=== PATIENT | female | born 1950 | race Caucasian/White ===

== ENCOUNTER → 2017-02-01 | Outpatient (CLI) | payer OTHER ==
[~2017-02-01] MED LIST: APR25 PO; BUME2TAB3 PO; CALC500C3 PO; CALC667C4 PO; CIPR-255 PO; INSDGI SC; INSUINJ SC; LSN20 PO; LSN40 PO; METO-596 PO; METO50TA16 PO; METR500T PO; MULT-648 PO; NRV5 PO; NVLGI/PEN SQ; OXYC-57 PO; PSYL58.636 PO; VTMD1000 PO
--- NOTE | 2017-02-01 12:06 | DIAGNOSTIC IMAGING REPORT ---
Soft tissue ultrasound left knee LEFT EXTREMITY NONVASCULAR LIMITED CLINICAL HISTORY: CYST ON BACK OF LEFT KNEE pain. Edema. TECHNIQUE: Ultrasound COMPARISON STUDY: None FINDINGS: Minimal soft tissue edema at the site of clinically palpable tenderness. No abnormal mass or collection. No significant popliteal cyst. IMPRESSION: Minimal soft tissue edema at the site of clinically palpable tenderness. No well-defined abscess collection or cyst. Electronically signed by: Scottie Peter M.D. 02/01/2017 12:04 PM Dictated Date/Time: 02/01/2017 12:03 PM
== END | disposition home or self-care (01) ==
LOC: C.ULTRBC 11:31
PROVIDERS: ATTEND Internal Medicine Nephrology
DX: M25.562 Pain in left knee (principal)

== ENCOUNTER → 2017-05-10 | Outpatient (CLI) | payer OTHER ==
[~2017-05-10] MED LIST changes: -CIPR-255 PO; -LSN40 PO; -METO50TA16 PO; -METR500T PO; -NRV5 PO; -OXYC-57 PO
[2017-05-15 11:48] LABS: IGA SERUM 334 mg/dL (81-463); TIS TRANS IGA 1 U/mL (<4)
== END | disposition home or self-care (01) ==
LOC: C.LAB1850 11:52
PROVIDERS: ATTEND Physician Assistant
DX: R19.5 Other fecal abnormalities (principal)

== ENCOUNTER 2017-06-07 10:09 | Day surgery (SDC) | payer OTHER ==
[~2017-06-07] VITALS: Ht 157.5 cm; Wt 49.5 kg
--- NOTE | 2017-06-07 06:14 | History and Physical ---
History & Physical Date of Service Jun 07, 2017. History & Physical Chief Complaint: ESRD, malfunctioning access History of Present Illness The patient is a 65 year old female with multiple medical problems including chronic renal disease and von willebrand's disease, recently had a left arm fistula done over 1 year ago which is not functioning well at this time. Pt denies OLIVARES, fever, chills, chest pain, SOB, abd pain, N/V, rest pain, claudication, other complaints. Allergies Adhesives (Verified Allergy, Intermediate, RASH, 10/08/15) Amoxicillin (Verified Allergy, Intermediate, RASH, 10/08/15) Ampicillin (Verified Allergy, Intermediate, RASH, 10/08/15) Erythromycin (Verified Allergy, Intermediate, RASH, 10/08/15) Etodolac (Verified Allergy, Intermediate, RASH, 10/08/15) Penicillins (Verified Allergy, Intermediate, RASH, 10/08/15) Sulfa Antibiotics (Verified Allergy, Intermediate, RASH, 10/08/15) Aspirin (Verified Allergy, Mild, RASH, 10/08/15) Meds: See med list Surgical / Medical History Hx Cardiac Surgery: No Hx Abdominal Surgery: No Hx Cancer Surgery: No Hx Thoracic Surgery: No Hx Orthopedic: No Hx Urinary Tract Surgery: No HX Other Surgery: No Past Medical/Surgical History: Diabetes, Hypertension, Kidney Disease Family History No pertinent family history Social History Smoking Status: Never Smoker Hx Tobacco Use In Past Year?: No Hx Alcohol Use - Type & Amnt: No Hx Substance Use -Type & Amnt: No Review of Systems Constitutional: + malaise, No chills Skin: No change in color Eyes: No visual changes ENMT: No sore throat Respiratory: No DAVID, No cough, No hemoptysis, No short of breath Cardiovascular: No chest pain, No edema, No intermittent claudication, No palpitations, No syncope Gastrointestinal: + nausea, No abdominal pain, No vomiting Genitourinary - Female: No dysuria, No hematuria Neurologic: + weakness, No dizziness, No headache, No lethargy, No numbness, No seizures Physical Exam: Constitutional: General Apperance: well-nourished, well-developed Level of Distress: NAD, chronically ill Psychiatric: Mental Status: active & alert, normal mood, normal affect Orientation: oriented except where noted, to time, to place, to person Memory: recent memory normal, remote memory normal Head: normocephalic, atraumatic Eyes: EOM: EOMI ENMT: normal ENT inspection, hearing grossly normal Neck: supple, trachea midline Lungs: Respiratory effort: no dyspnea Auscultation: breath sounds normal, no wheezing, no rales/crackles, no rhonchi Cardiovascular: Apical Impulse: not displaced Heart Auscultation: RRR, no rubs, no gallops Peripheral Pulses: Pulses: full and equal, in all extremities except if noted Bruits: none appreciated Carotid Pulse: normal on the left, normal on the right Brachial Pulses: normal on the left, normal on the right Radial Pulse: normal on the left, normal on the right Femoral Pulse: normal on the left, normal on the right Posterior Tibialis Pulse: decreased on the left, decreased on the right Dorsalis Pedis Pulse: decreased on the left, decreased on the right Abdomen: Bowel Sounds: normal Inspection & Palpation: soft, non-distended, no tenderness, guarding & rebound Musculoskeletal: normal strength (5/5 throughout), normal tone Extremities: Upper Right: no cyanosis, no edema, no varicosities Upper Left: no cyanosis, no edema, no varicosities, decreased thrill Lower Right: no cyanosis, no edema, no varicosities Lower Left: no cyanosis, no edema, no varicosities Neurologic: Cranial Nerves: grossly intact Sensation: grossly intact ASSESSMENT and PLAN: Imp: ESRD Malfunctioning fistula Plan: Patient admitted for a fistulogram with possible intervention. I have discussed the risks options and benefits of the procedure with the patient. The patient understands the risks options and benefits and agrees to the procedure.
[~2017-06-07 10:09] MED LIST changes: -APR25 PO; -CALC500C3 PO; +CLINDAMYCIN 600 MG/54 ML D5W IV SCH; +D5W AND 1/4NSS 1,000 ML IV SCH; -INSDGI SC; -PSYL58.636 PO
[2017-06-07] MEDS ORDERED: CALC500C3 PO (10:53)
[2017-06-07] MEDS ORDERED: CALC667C4 PO (10:53)
[2017-06-07] MEDS ORDERED: PSYL58.636 PO (10:53)
[2017-06-07] MEDS ORDERED: INSDGI SC (10:53)
[2017-06-07] MEDS ORDERED: APR25 PO (10:53)
[2017-06-07 10:57] VITALS: BP 188/65; PULSE 63; TEMP 37.2; O2SAT 96; Ht 157.5 cm; Wt 49.5 kg
--- NOTE | 2017-06-07 11:28 | Procedure Note ---
Pre-Mod Sedation Assessment General Date of Moderate Sedation: Jun 07, 2017. Vital Signs: Vital Signs Past 12 Hours Date Time Temp Pulse Resp B/P (MAP) Pulse Ox O2 Delivery O2 Flow Rate FiO2 06/07/17 10:57 37.2 63 22 188/65 (106) 96 Room Air Pre-Sedation Airway Assessment Oral Cavity: WNL Smoking Status: Never Smoker Mallampati Classification: Class I ASA Classification: Class III Notes The planned sedation has been discussed with the patient and consent obtained. I have identified the patient, determined the appropriateness of sedation and have assessed the patient immediately prior to the procedure. All medicine(s) and interventions are by my order.
--- NOTE | 2017-06-07 11:28 | History & Physical Bridge Note ---
H&P Re-Evaluation Bridge Note: I have examined the patient, reviewed the History & Physical and in the interval since the performance of the History & Physical I have noted the following changes of clinical significance: No changes noted
[2017-06-07] MEDS ORDERED: FENTANYL CITRATE INJ 50 MCG/1 ML 2 ML VIAL ONE (11:34)
[2017-06-07] MEDS ORDERED: MIDAZOLAM HCL 1 MG/ML 2ML VIAL ONE (11:35)
[2017-06-07 11:42] VITALS: BP 188/65; PULSE 63; TEMP 37.2; O2SAT 96
[2017-06-07] MEDS ORDERED: LIDOCAINE HCL 1% 20 ML VIAL INJ ONE (12:03)
[2017-06-07] MEDS ORDERED: MIDAZOLAM HCL 1 MG/ML 2ML VIAL IV ONE (12:09)
[2017-06-07] MEDS ORDERED: FENTANYL CITRATE INJ 50 MCG/1 ML 2 ML VIAL IV ONE (12:09)
[2017-06-07] MEDS ORDERED: HydrALAZINE HCL 20 MG/ML VIAL ONE ×2 (12:17→12:55)
[2017-06-07] MEDS ORDERED: HydrALAZINE HCL 20 MG/ML VIAL IV. ONE ×2 (12:19→12:54)
[2017-06-07] MEDS ORDERED: OPTIRAY 300 IV ONE (12:53)
--- NOTE | 2017-06-07 13:00 | [facility] Post Operative Brief Note ---
Immediate Operative Summary Operative Date Jun 07, 2017. Pre-Operative Diagnosis Malfunctioning Fistula Post-Operative Diagnosis Same Procedure(s) Performed Fistulogram Percutaneous Transluminal Angioplasty and Stenting Venous Moderate Concious Sedation 1209 to 1259 Surgeon Felecia Truck Greaser Surgeon(s) Addi Gunter, Fellow Estimated Blood Loss 2 Findings good thrill Specimens None Anesthesia Local with sedation Complication(s) None Disposition
--- NOTE | 2017-06-07 13:01 | Procedure Note ---
Post-Moderate Sedation Plan General Date of Moderate Sedation Jun 07, 2017. Vital Signs: Vital Signs Past 12 Hours Date Time Temp Pulse Resp B/P (MAP) Pulse Ox O2 Delivery O2 Flow Rate FiO2 06/07/17 11:42 37.2 63 22 188/65 96 Room Air 06/07/17 10:57 37.2 63 22 188/65 (106) 96 Room Air Review - Discharge Plan Post Moderate Sedation Plan: On clinical assessment, the patient appears to have tolerated the conscious sedation without complications. Patient is recovering as anticipated. Patient will continue to be monitored by nursing and may be discharged when conscious sedation discharge criteria are met.
--- NOTE | 2017-06-07 13:02 | Discharge Instructions ---
Discharge Instructions Date of Service Jun 07, 2017. Visit Reason for Visit: Decreased Bruit & Access Discharge Discharge Diagnosis / Problem: Malfunctioning fistula Discharge Goals Goal(s): Therapeutic intervention Activity Recommendations Activity Limitations: resume your previous activity Anesthesia . Post Anesthesia Instructions: If you have had General Anesthesia or IV Sedation: * Do not drive today. * Resume driving when surgeon permits. * Do not make important decisions or sign legal documents today. * Call surgeon for: 1. Temperature elevations greater than 101 degrees F. 2. Uncontrollable pain. 3. Excessive bleeding. 4. Persistent nausea and vomiting. 5. Medication intolerance (nausea, vomiting or rash). * For nausea and vomiting use only clear liquids such as: tea, soda, bouillon until nausea subsides, then gradually increase diet as tolerated. * If you have any concerns or questions, call your surgeon's office. If physician is unavailable and it is an emergency, call 911 or go to the nearest emergency room. . Instructions / Follow-Up Instructions / Follow-Up Call [phone] with any questions or concerns. SPECIAL CARE INSTRUCTIONS: Medications: * Continue to take your medications as directed. If you have been given a prescription for Plavix, please fill it immediately and take as directed. Incision Care: * Your puncture site may have some bruising and minor swelling for about one week. * You will have a small dressing covering your puncture site. You may remove the dressing after 24 hours and shower. You may let the warm soapy water run over it, but be sure to dry the puncture site well and keep it dry. * DO NOT IMMERSE THE INCISION IN A TUB/POOL/etc. UNTIL HEALED. * Puncture sites should be kept covered with a band-aid until it begins to heal. Restrictions: * Depending on whether you leg or arm was punctured to access the arteries, you will be required to lay flat, hold your arm still, or both, for about 4 hours after the procedure to prevent bleeding. * Limit your activity for the first 48 hours. You may walk and go up and down steps. Avoid excessive bending or movement at the puncture site. Possible Complications: * Excessive Swelling - after blood flow is improved you may notice increased swelling in the lower legs. This is a normal response. This usually depends on the amount of blockages in the leg, how long they have been there prior to your procedure and how much blood flow was restored. Elevating your legs will help to improve this. Please notify our office ([phone] ) if the swelling does not go away after lying in bed overnight. * Infection/Drainage/Bleeding - Drainage or bleeding from the puncture site should be minimal. If you have excessive bleeding or drainage, call our office ([phone]) right away. * Pain - You may experience some mild pain or soreness at your puncture site. If your pain does not improve, please contact our office ([phone]). Call your doctor and seek emergent treatment if you develop: * Temperature above 101 degrees * Any fever or chills * Any redness or purulent drainage from the puncture site * Any new dusky/blue colored toes or feet with coolness or sharp or aching pain. SKIN IRRITATION: * You may experience some redness and/or swelling in the area where radiation was administered. If any skin irritation occurs, please contact your family physician. FOLLOW UP VISIT: Keep any scheduled doctor appointments. Diet Recommendations Recommended Home Diet: no limitations Procedures Procedures Performed: Fistulogram Percutaneous Transluminal Angioplasty and Stenting Venous Moderate Concious Sedation 1209 to 1259 Pending Studies Studies pending at discharge: no Medical Emergencies . Who to Call and When: Medical Emergencies: If at any time you feel your situation is an emergency, please call 911 immediately. . Non-Emergent Contact Non-Emergency issues call your: Surgeon . . "Provider Documentation" section prepared by Davonte Izquierdo. .
[2017-06-07 13:05] VITALS: BP 147/73; PULSE 63; TEMP 36.4; O2SAT 97
--- NOTE | 2017-06-07 13:16 | [facility] Operative Report ---
Operative Report Operative Date Jun 07, 2017. Pre-Operative Diagnosis Malfunctioning Fistula Post-Operative Diagnosis Same Procedure(s) Performed Fistulogram Percutaneous Transluminal Angioplasty and Stenting Venous (FLAIR stent 9x40 mm, absolute stent 10 x 40 mm) Moderate Concious Sedation 1209 to 1259 Surgeon Felecia Material Specialist Surgeon(s) Addi Gunter, Fellow Estimated Blood Loss 2 Findings Patient had significant pulsatility in the AV fistula prior to procedure. Patient had an area of stenosis between the two areas that have been used for access in the AV fistula. Patient also had some stenosis within the stents in the cephalic vein and a small area of stenosis just distal to the last stent placed at the junction of the subclavian and cephalic vein. Radiation dose 16 mGy Contrast dose 25 mL Fluoroscopy time 6.4 minutes. Specimens None Anesthesia Local with sedation Complication(s) None Disposition Recovery Room / PACU Indications The Q50 balloon was then loaded on the left side and the balloon was then inflated at the main neck of the device, then at the overlap area as well as the distal iliac limb. The balloon was then placed on the right side and dilation of the stent overlap as well as the iliac limb was completed. Description of Procedure Patient was brought to the operating room and placed on the operating table in the supine position the left upper extremity was extended on an arm board and prepped and draped in a sterile fashion. 1% lidocaine was injected under the skin and over the AV fistula and a micropuncture needle was used to access the AV fistula micropuncture wire was advanced and a confirmatory fluoroscopic image was Taken the micropuncture sheath was then advanced into the AV fistula and a fistulogram was obtained. This fistulogram showed an area of stenosis mid AV fistula in between the two different areas where the AV fistula has been access repeatedly. We moved centrally and followed the AV fistula. A fistulogram was performed showing in-stent stenosis in the cephalic vein which is the outflow of the AV fistula as well as an area stenosis right at the bifurcation and confluence of the subclavian vein and cephalic vein. Centrally there was no significant stenosis seen beyond the confluence of the subclavian and cephalic vein. An angled Glidewire was then advanced into the AV fistula and reached superior vena cava. The micropuncture sheath was then exchanged for a 7 Belgian sheath and a 9 x 40 mm [place]on balloon was advanced over the wire across the in-stent stenosis in the cephalic vein. The balloon was inflated and multiple times across the areas of stenosis. A follow-up fistulogram was completed showing residual stenosis. There was an area of residual stenosis at the confluence of the subclavian vein and cephalic vein. The 7 Belgian sheath was exchanged for a 9 Belgian sheath over the wire. A Flair 9 x 46 mm stent was advanced to the confluence of the subclavian and cephalic vein and Doran in place. Next a 10 x 40 mm absolute stent was advanced to the area of in-stent stenosis in the cephalic vein and deployed. A 10 x 20 mm [place]on balloon was then advanced over the wire right outside the distal end of the new FLAIR stent that was deployed and the balloon was inflated to FLAIR distal end of the stent. The balloon was then exchanged over the wire with a 9 x 40 [place]on balloon which was inflated across the new stent that was placed to treat the in- stent restenosis. A completion fistulogram was performed showing a good result. Attention was then turned back to the AV fistula and a 7 x 40mm balloon was exchanged over the wire. A fistulogram with the arm was completed showing the area stenosis. The balloon was positioned across the area of stenosis and inflated twice. Following the angioplasty a follow-up fistulogram was completed showing a good result with no residual stenosis. At this time the fistula was examined and a good thrill was palpated and the pulsatility was significantly improved. The sheath and wire were removed and gentle pressure was applied over the access site for hemostasis. The patient tolerated the procedure well and was taken back to the recovery room with no complications. Dr. Izquierdo was present for the entirety of the procedure. I, Dr. Izquierdo was present and scrubbed for the entire procedure. I attest to the content of the Intraoperative Record and any orders documented therein. Any exceptions are noted below.
[2017-06-07 13:21] VITALS: BP 138/69; PULSE 64; O2SAT 98
[2017-06-07 13:40] VITALS: BP 138/69; PULSE 64; TEMP 36.3; O2SAT 99
== END 2017-06-07 13:45 | disposition home or self-care (01) ==
LOC: C.ACU 10:09
PROVIDERS: ATTEND Surgery Vascular Surgery
DX: T82.898A Other specified complication of vascular prosthetic devices, implants and grafts, initial encounter (principal); Y83.2 Surgical operation with anastomosis, bypass or graft as the cause of abnormal reaction of the patient, or of later complication, without mention of misadventure at the time of the procedure; I12.0 Hypertensive chronic kidney disease with stage 5 chronic kidney disease or end stage renal disease; E11.22 Type 2 diabetes mellitus with diabetic chronic kidney disease; N18.6 End stage renal disease; D68.0 Von Willebrand disease; Z99.2 Dependence on renal dialysis; Z79.899 Other long term (current) drug therapy

== ENCOUNTER 2017-08-25 15:20 | Inpatient (IN) | payer OTHER ==
[~2017-08-25] VITALS: Ht 157.5 cm; Wt 50.2 kg
[~2017-08-25 15:20] MED LIST changes: +APR25 PO; +CALC500C3 PO; -CLINDAMYCIN 600 MG/54 ML D5W IV SCH; -D5W AND 1/4NSS 1,000 ML IV SCH; +INSDGI SC; -INSUINJ SC; +PSYL58.636 PO
[2017-08-25] MEDS ORDERED: FENTANYL CITRATE INJ 50 MCG/1 ML 2 ML VIAL IV STA (15:34)
--- NOTE | 2017-08-25 15:43 | EMERGENCY ROOM VISIT NOTE ---
History Report prepared by Molly: Ashley Henry Under the Supervision of: Dr. Pierre Hall M.D. First contact with patient: 15:25 Chief Complaint: ABDOMINAL PAIN Stated Complaint: RT LOWER ABDOMEN PAIN History of Present Illness The patient is a 67 year old female who presents to the Emergency Room with complaints of sharp right lower abdominal pain beginning four days ago. The patient states that her pain worsens when moves. She has decreased appetite, nausea, and chronic diarrhea. She denies any vomiting, chest pain, shortness of breath, headache or blood in her stool. The patient was referred to the ED by Dr. Lee. The patient has end stage renal disease on and is on dialysis three times a week (MWF). The patient still makes urine and denies any urinary symptoms. She has a history of diabetes and takes insulin. She states her sugar levels have been running around 160 which is baseline for her. The patient has arthritis but does not take any pain medications. The patient has no history of abdominal surgeries. Source of History: patient Onset: 4 days ago Position: abdomen (RLQ) Quality: sharp Modifying Factors (Worsening): movement Associated Symptoms: + nausea, + diarrhea, No headache, No chest pain, No SOB, No vomiting Review of Systems See HPI for pertinent positives & negatives. A total of 10 systems reviewed and were otherwise negative. Past Medical & Surgical Medical Problems: (1) acute renal failure, DKA, PNA (2) Diabetes (3) Liver failure (4) Renal failure (5) Von Willebrand disease Family History No pertinent family history Social History Smoking Status: Never Smoker Marital Status: Housing Status: lives with family Occupation Status: retired Current/Historical Medications Scheduled Bumetanide (Bumex), 2 MG PO DAILY Calcium Acetate (Phoslo 667 Mg), 3 CAPSULES PO WM Calcium Acetate (Phoslo 667 Mg), 1 CAP PO with snacks Calcium Carbonate (Tums), 2 TABS PO WM Cholecalciferol (Vitamin D3), 2,000 UNITS PO DAILY Hydralazine Hcl (Apresoline), 25 MG PO BID Insulin Glargine (Lantus), 7 UNITS SC QAM Lisinopril (Lisinopril), 20 MG PO DAILY Metoprolol Tartrate (Lopressor), 100 MG PO BID Multiple Vitamins W/ Minerals (Prorenal Vital), 1 TAB PO DAILY Psyllium (Metamucil Fiber), 1 TSP PO DAILY Scheduled PRN Insulin Aspart (Novolog Flexpen), 0-40 UNITS SQ MEALS AFTER 1700 PRN for 1 UNIT FOR EVERY SEVEN CARBS Allergies Coded Allergies: Adhesives (Verified Allergy, Intermediate, RASH, 08/25/17) Amoxicillin (Verified Allergy, Intermediate, RASH, 08/25/17) Ampicillin (Verified Allergy, Intermediate, RASH, 08/25/17) Erythromycin (Verified Allergy, Intermediate, RASH, 08/25/17) Etodolac (Verified Allergy, Intermediate, RASH, 08/25/17) Penicillins (Verified Allergy, Intermediate, RASH, 08/25/17) Sulfa Antibiotics (Verified Allergy, Intermediate, RASH, 08/25/17) Aspirin (Verified Allergy, Mild, RASH, 08/25/17) Sevelamer (Verified Allergy, Mild, rash, 08/25/17) Physical Exam Vital Signs Date Time Temp Pulse Resp B/P (MAP) Pulse Ox O2 Delivery O2 Flow Rate FiO2 08/25/17 17:19 59 18 168/67 98 Room Air 08/25/17 15:23 36.5 56 16 195/81 99 Room Air Physical Exam GENERAL: Patient is uncomfortable appearing and in moderate distress. HEENT: No acute trauma, normocephalic atraumatic, mucous membranes moist, no nasal congestion, no scleral icterus. NECK: No stridor, no adenopathy, no meningismus, trachea is midline. LUNGS: No dyspnea. Clear to auscultation and equal bilaterally. No wheeze, no rhonchi. HEART: Regular rate and rhythm. No murmurs, rubs, gallops appreciated. ABDOMEN: Moderate tenderness to right lower quadrant, bowel sounds positive, no masses appreciated, no peritonitis. BACK: No midline tenderness, no CVA tenderness EXTREMITIES: Normal motion all extremities, no cyanosis, no edema. Fistula in left arm. NEUROLOGIC: Alert and oriented, no acute motor or sensory deficits, no focal weakness, cranial nerves grossly intact. SKIN: No rash, no jaundice, no diaphoresis. Medical Decision & Procedures ER Provider Diagnostic Interpretation: Radiology results and stated below per my review and radiologist interpretation: CT SCAN OF THE ABDOMEN AND PELVIS WITHOUT IV CONTRAST FINDINGS: Lung bases: The heart is normal in size and without pericardial effusion. There is diminished attenuation of the cardiac blood pool as compared to the myocardium suggesting anemia. There are trace pleural effusions. Scarring versus atelectasis is seen at the left lung base. There is a tiny hiatal hernia. Liver: The unenhanced liver is normal in size, contour, and attenuation. There is no intrahepatic biliary ductal dilatation. Gallbladder: There are calcified gallstones. There is no CT evidence of acute cholecystitis. Spleen: Normal in size and attenuation. Pancreas: The unenhanced pancreas is markedly atrophic. The gland is densely calcified consistent with chronic pancreatitis. The pancreatic duct is not well visualized but likely dilated. Adrenal glands: There is mild nodular thickening of the adrenal glands. Kidneys: The unenhanced kidneys are atrophic and without hydronephrosis. The renal parenchyma appears hyperdense, possibly represent retained contrast. There is a 13 mm nonobstructing left or a calculus. There is at least one additional punctate nonobstructing left or a calculus. Tiny punctate right renal calculi are also identified. There is no evidence of contour deforming renal mass lesion. Abdominal vasculature: The abdominal aorta is normal in course and caliber noting moderate to advanced atherosclerotic calcification. Bowel: There is moderate fecal retention in the right colon. There is significant pericecal inflammation. The appendix is not identified. Peritoneum: There is no intraperitoneal free air or abdominal ascites. Lymphadenopathy: There are mildly enlarged retroperitoneal lymph nodes. An aortocaval node on image #169 measures 10 mm short axis. Enlarged mesenteric lymph nodes in the right lower quadrant measure up to 13 mm. Pelvic viscera: The the bladder wall appears mildly thickened. The uterus is normal as imaged. Skeletal structures: The skeletal structures are osteopenic. Mild lumbosacral spondylosis is observed. Advanced arthritic change is seen in the hips. There are healed right pubic ring fractures. No lytic or blastic lesions are seen. IMPRESSION: 1. Examination is suboptimal without oral and IV contrast. The examination is also compromised by motion artifact. 2. There is an inflammatory process in the right lower quadrant around the cecum. A normal appendix is not identified and acute appendicitis is suspected but not confirmed. The top differential consideration is a nonspecific colitis/cecitis. A repeat examination with oral and IV contrast could be considered for confirmation. 3. There is no evidence of abscess on this unenhanced examination. No intraperitoneal free air is seen. 4. There are mildly enlarged mesenteric and retroperitoneal lymph nodes. 5. Cholelithiasis. 6. The appearance of the pancreas is consistent with chronic pancreatitis. 7. Bilateral nonobstructing renal calculi. 8. The renal parenchyma appears hyperdense, likely related to contrast retention. 9. Moderate fecal retention is noted in the right colon. There is no bowel obstruction. 10. Trace pleural effusions. 11. Additional findings as above. Electronically signed by: Frankie Beckett M.D. Laboratory Results 08/25/17 15:40 Red Blood Count 3.76, Mean Corpuscular Volume 95.7, Mean Corpuscular Hemoglobin 30.9, Mean Corpuscular Hemoglobin Concent 32.2, Mean Platelet Volume 8.9, Neutrophils (%) (Auto) 84.2, Lymphocytes (%) (Auto) 9.9, Monocytes (%) (Auto) 5.4, Eosinophils (%) (Auto) 0.0, Basophils (%) (Auto) 0.2, Neutrophils # (Auto) 8.11, Lymphocytes # (Auto) 0.95, Monocytes # (Auto) 0.52, Eosinophils # (Auto) 0.00, Basophils # (Auto) 0.02 08/25/17 15:40 Test 08/25/17 15:40 White Blood Count 9.63 K/uL (4.8-10.8) Red Blood Count 3.76 M/uL (4.2-5.4) Hemoglobin 11.6 g/dL (12.0-16.0) Hematocrit 36.0 % (37-47) Mean Corpuscular Volume 95.7 fL (80-100) Mean Corpuscular Hemoglobin 30.9 pg (25-34) Mean Corpuscular Hemoglobin Concent 32.2 g/dl (32-36) Platelet Count 319 K/uL (130-400) Mean Platelet Volume 8.9 fL (7.4-10.4) Neutrophils (%) (Auto) 84.2 % Lymphocytes (%) (Auto) 9.9 % Monocytes (%) (Auto) 5.4 % Eosinophils (%) (Auto) 0.0 % Basophils (%) (Auto) 0.2 % Neutrophils # (Auto) 8.11 K/uL (1.4-6.5) Lymphocytes # (Auto) 0.95 K/uL (1.2-3.4) Monocytes # (Auto) 0.52 K/uL (0.11-0.59) Eosinophils # (Auto) 0.00 K/uL (0-0.5) Basophils # (Auto) 0.02 K/uL (0-0.2) RDW Standard Deviation 50.5 fL (36.4-46.3) RDW Coefficient of Variation 14.4 % (11.5-14.5) Immature Granulocyte % (Auto) 0.3 % Immature Granulocyte # (Auto) 0.03 K/uL (0.00-0.02) Anion Gap 11.0 mmol/L (3-11) Est Creatinine Clear Calc Drug Dose 6.9 ml/min Estimated GFR () 7.5 Estimated GFR (Non- 6.5 BUN/Creatinine Ratio 7.4 (10-20) Calcium Level 8.4 mg/dl (8.5-10.1) Total Bilirubin 0.4 mg/dl (0.2-1) Direct Bilirubin 0.1 mg/dl (0-0.2) Aspartate Amino Transf (AST/SGOT) 19 U/L (15-37) Alanine Aminotransferase (ALT/SGPT) 24 U/L (12-78) Alkaline Phosphatase 167 U/L (45-117) Total Protein 7.7 gm/dl (6.4-8.2) Albumin 3.0 gm/dl (3.4-5.0) Lipase 42 U/L (73-393) Laboratory results as reviewed by me. Medications Administered Medications (Trade) Dose Ordered Sig/Eduardo Route Start Time Stop Time Status Last Admin Dose Admin Fentanyl Citrate (Fentanyl Inj) 25 mcg NOW STAT IV 08/25/17 15:34 08/25/17 15:36 DC 08/25/17 15:42 25 MCG ED Course 1527: The patient was evaluated in room A10. A complete history and physical exam was performed. 1534: Fentanyl Inj 25 mcg IV. 1617: Discussed the patient's case with Dr. Ryan-Surgery. The patient will be evaluated for further by him. Medical Decision Differential: Appendicitis, , MSK, Diverticulitis, UTI, Renal Colic, Bowel Obstruction, Aortic Pathology, amongst other pathologies entertained. 67 yr old female with acute RLQ pain over last 4 days with decreased appetite, nausea, feverish, pain with ambulation and now in RLQ. Seen by PCP who sent here for evaluation of appendicitis. Given clearly TTP RLQ sent immediately for CT without con revealing inflammation throughout RLQ. No appendix could be visualized though. As she is clearly TTP and RLQ inflammation I discussed with Gen Surg who advise CT with PO con, and after talking with rads/nephro will add on IV con as well to get best imaging. Patient comfortable with this plan. Stable and without significant discomfort unless moving. PRN meds ordered and patient siged out to Dr Velázquez awaiting evaluation by Gen Surg and CT findings. Medication Reconcilliation Current Medication List: was personally reviewed by me Blood Pressure Screening Patient's blood pressure: Elevated blood pressure Blood pressure disposition: Referred to PCP (evaluated by hospitalist) Consults Time Called: 1656 Consulting Physician: Dr. Ryan-Surgery Returned Call: 1617 Discussed the patient's case. The patient will be evaluated for further by him. Impression Primary Impression: RLQ abdominal pain Additional Impression: Abnormal computed tomography angiography (CTA) of abdomen and pelvis Scribe Attestation The scribe's documentation has been prepared under my direction and personally reviewed by me in its entirety. I confirm that the note above accurately reflects all work, treatment, procedures, and medical decision making performed by me. Departure Information Dispostion Being Evaluated By Hospitalist Referrals Sixto Bella M.D. (PCP) Patient Instructions [facility] Problem Qualifiers
[2017-08-25 15:53] LABS: BASO % 0.2 %; BASO ABS # 0.02 K/uL (0-0.2); COMPLETE YES; IG% 0.3 %; LYMPH % 9.9 %; LYMPH ABS # 0.95 K/uL (1.2-3.4); MEAN CELL VOLUME 95.7 fL (80-100); MEAN CORPUSCULAR HEMOGLOBIN 30.9 pg (25-34); MEAN CORPUSCULAR HGB CONC 32.2 g/dl (32-36); MEAN PLATELET VOLUME 8.9 fL (7.4-10.4); MONO % 5.4 %; NEUT % 84.2 %; PLATELET COUNT 319 K/uL (130-400); RED BLOOD COUNT 3.76 M/uL (4.2-5.4); WHITE BLOOD COUNT 9.63 K/uL (4.8-10.8)
[2017-08-25 16:26] LABS: BUN/CREATININE RATIO 7.4 (10-20); CALCIUM 8.4 mg/dl (8.5-10.1); CREATININE 6.09 mg/dl (0.60-1.20); POTASSIUM 3.7 mmol/L (3.5-5.1)
--- NOTE | 2017-08-25 17:09 | DIAGNOSTIC IMAGING REPORT ---
CT SCAN OF THE ABDOMEN AND PELVIS WITHOUT IV CONTRAST CLINICAL HISTORY: Right lower quadrant abdominal pain. Strong clinical concern for acute appendicitis. COMPARISON STUDY: No priors. TECHNIQUE: CT scan of the abdomen and pelvis is performed from the lung bases to the proximal femora. Images are reviewed in the axial, sagittal, and coronal planes. IV contrast was not administered for this examination as per the front clinician due to poor renal function. Note that the examination is suboptimal without IV contrast. The examination is significantly degraded by motion artifact. A dose lowering technique was utilized adhering to the principles of ALARA. CT DOSE: 246.44 mGy.cm FINDINGS: Lung bases: The heart is normal in size and without pericardial effusion. There is diminished attenuation of the cardiac blood pool as compared to the myocardium suggesting anemia. There are trace pleural effusions. Scarring versus atelectasis is seen at the left lung base. There is a tiny hiatal hernia. Liver: The unenhanced liver is normal in size, contour, and attenuation. There is no intrahepatic biliary ductal dilatation. Gallbladder: There are calcified gallstones. There is no CT evidence of acute cholecystitis. Spleen: Normal in size and attenuation. Pancreas: The unenhanced pancreas is markedly atrophic. The gland is densely calcified consistent with chronic pancreatitis. The pancreatic duct is not well visualized but likely dilated. Adrenal glands: There is mild nodular thickening of the adrenal glands. Kidneys: The unenhanced kidneys are atrophic and without hydronephrosis. The renal parenchyma appears hyperdense, possibly represent retained contrast. There is a 13 mm nonobstructing left or a calculus. There is at least one additional punctate nonobstructing left or a calculus. Tiny punctate right renal calculi are also identified. There is no evidence of contour deforming renal mass lesion. Abdominal vasculature: The abdominal aorta is normal in course and caliber noting moderate to advanced atherosclerotic calcification. Bowel: There is moderate fecal retention in the right colon. There is significant pericecal inflammation. The appendix is not identified. Peritoneum: There is no intraperitoneal free air or abdominal ascites. Lymphadenopathy: There are mildly enlarged retroperitoneal lymph nodes. An aortocaval node on image #169 measures 10 mm short axis. Enlarged mesenteric lymph nodes in the right lower quadrant measure up to 13 mm. Pelvic viscera: The the bladder wall appears mildly thickened. The uterus is normal as imaged. Skeletal structures: The skeletal structures are osteopenic. Mild lumbosacral spondylosis is observed. Advanced arthritic change is seen in the hips. There are healed right pubic ring fractures. No lytic or blastic lesions are seen. IMPRESSION: 1. Examination is suboptimal without oral and IV contrast. The examination is also compromised by motion artifact. 2. There is an inflammatory process in the right lower quadrant around the cecum. A normal appendix is not identified and acute appendicitis is suspected but not confirmed. The top differential consideration is a nonspecific colitis/cecitis. A repeat examination with oral and IV contrast could be considered for confirmation. 3. There is no evidence of abscess on this unenhanced examination. No intraperitoneal free air is seen. 4. There are mildly enlarged mesenteric and retroperitoneal lymph nodes. 5. Cholelithiasis. 6. The appearance of the pancreas is consistent with chronic pancreatitis. 7. Bilateral nonobstructing renal calculi. 8. The renal parenchyma appears hyperdense, likely related to contrast retention. 9. Moderate fecal retention is noted in the right colon. There is no bowel obstruction. 10. Trace pleural effusions. 11. Additional findings as above. Electronically signed by: Frankie Beckett M.D. 08/25/2017 5:08 PM Dictated Date/Time: 08/25/2017 4:37 PM
[2017-08-25] MEDS ORDERED: ONDANSETRON INJ 2 MG/ML 2 ML VIAL IV PRN ×2 (17:45→22:45)
[2017-08-25] MEDS ORDERED: FENTANYL CITRATE INJ 50 MCG/1 ML 2 ML VIAL IV PRN (17:45)
[2017-08-25] MEDS ORDERED: OPTIRAY 320 IV PRN (20:30)
--- NOTE | 2017-08-25 20:41 | DIAGNOSTIC IMAGING REPORT ---
CT SCAN OF THE ABDOMEN AND PELVIS WITH IV CONTRAST CLINICAL HISTORY: Right lower quadrant abdominal pain. Strong clinical concern for acute appendicitis. COMPARISON STUDY: Unenhanced abdominal CT performed the same day 08/25/2017. TECHNIQUE: Following the IV administration of cc of Optiray 20, CT scan of the abdomen and pelvis is performed from the lung bases to the proximal femora. Images are reviewed in the axial, sagittal, and coronal planes. IV contrast was administered without complication. The examination is significantly degraded by motion artifact. A dose lowering technique was utilized adhering to the principles of ALARA. CT DOSE: 249.38 mGy.cm FINDINGS: Lung bases: The heart is normal in size and without pericardial effusion. There are trace pleural effusions. Scarring versus atelectasis is seen at the left lung base. There is a tiny hiatal hernia. Liver: The contrast-enhanced liver is normal in size, contour, and attenuation. There is mild central intrahepatic biliary ductal dilatation. The hepatic veins and portal veins are patent. Gallbladder: There are calcified gallstones. There is no CT evidence of acute cholecystitis. Spleen: Normal in size and attenuation. Pancreas: The pancreas is markedly atrophic. The gland is densely calcified consistent with chronic pancreatitis. The pancreatic duct is dilated measuring up to 9 mm. A large calculus is present within the main pancreatic duct seen on image #116. This measures up to 11 mm. Adrenal glands: There is mild nodular thickening of the adrenal glands. Kidneys: The contrast-enhanced kidneys are atrophic and without hydronephrosis. The kidneys enhance heterogeneously but symmetrically. There is a 13 mm nonobstructing left or a calculus. There is at least one additional punctate nonobstructing left or a calculus. Tiny punctate right renal calculi are also identified. Abdominal vasculature: The abdominal aorta is normal in course and caliber noting moderate to advanced atherosclerotic calcification. Bowel: There is moderate colonic fecal retention. No bowel obstruction is seen. There is a large inflammatory process identified around the base of the cecum. The appendix is not discretely visualized. There is a serpiginous/loculated appearing fluid collection the right lower quadrant seen on axial image #271 typical appearance for an abscess. This measures 3.3 x 3.7 x 1.4 cm. There is wall thickening within an adjacent loop of the distal ileum as well as the adjacent cecum, likely on a reactive basis. Peritoneum: There is no intraperitoneal free air or abdominal ascites. Lymphadenopathy: There are mildly enlarged retroperitoneal lymph nodes. An aortocaval node on image #187 measures up to 12 mm. Enlarged mesenteric lymph nodes in the right lower quadrant measure up to 15 mm. Pelvic viscera: The the bladder wall appears mildly thickened. The uterus is normal as imaged. No adnexal lesion is seen. Skeletal structures: The skeletal structures are osteopenic. Mild lumbosacral spondylosis is observed. Advanced arthritic change is seen in the hips. There are healed right pubic ring fractures. No lytic or blastic lesions are seen. IMPRESSION: 1. Again seen is a large inflammatory process centered around the base of the cecum. The appendix is not identified. There is phlegmonous change in this region with a serpiginous fluid collection typical in appearance for abscess. The appearance is highly concerning for perforated appendicitis. 2. No intraperitoneal free air is seen. 3. There is wall thickening involving the base of the cecum and an adjacent loop of the distal/terminal ileum, likely on a reactive basis. 4. There are mildly enlarged mesenteric and retroperitoneal lymph nodes. 5. Cholelithiasis. 6. The pancreas is atrophic with evidence of chronic pancreatitis. The pancreatic duct is dilated and there is a large obstructing stone present within the main pancreatic duct. Consider nonemergent GI follow-up. 7. Bilateral nonobstructing renal calculi. 8. Moderate fecal retention is noted in the right colon. There is no bowel obstruction. 9. Trace pleural effusions. 10. Mild bladder wall thickening suggested. Correlation with urinalysis will be required. 11. Additional findings as above. Electronically signed by: Frankie Beckett M.D. 08/25/2017 8:40 PM Dictated Date/Time: 08/25/2017 8:28 PM
[2017-08-25] MEDS ORDERED: METRONIDAZOLE 500MG / 100ML NSS IV STA (21:07)
[2017-08-25] MEDS ORDERED: CIPROFLOXACIN 400MG / 200ML D5W IV STA (21:07)
--- NOTE | 2017-08-25 21:36 | EMERGENCY ROOM VISIT NOTE ---
ED Visit Note First contact with patient: 18:27 This is a 67-year-old female who was signed out to me awaiting a CT scan with oral and IV contrast. The CT scan revealed a perforated appendicitis with a small abscess. I spoke with Dr. Ryan about the patient. We started IV Cipro and IV Flagyl. The patient will be seen by Dr. Ryan be admitted for further evaluation and care.
[2017-08-25] MEDS ORDERED: INSULIN ASPART 100 UNITS/ML 3 ML PEN SC ONE ×2 (22:39→22:58)
[2017-08-25] MEDS ORDERED: GLUCAGON FOR INJ 1 MG VIAL SQ PRN (22:45)
[2017-08-25] MEDS ORDERED: GLUCOSE 10 TABS/TUBE PO PRN (22:45)
[2017-08-25] MEDS ORDERED: CIPROFLOXACIN / D5W 400 MG in PREMIXED IN D5W 200 ML IV SCH (22:45)
[2017-08-25] MEDS ORDERED: GLUCOSE 40% GEL 15 GM TUBE PO PRN (22:45)
[2017-08-25] MEDS ORDERED: HydrALAZINE HCL 20 MG/ML VIAL IV. STA (23:19)
[2017-08-25] MEDS ORDERED: METOPROLOL TARTRATE 1 MG/ML VIAL IV STA (23:20)
[2017-08-25 23:43] VITALS: BP 174/71; PULSE 62; TEMP 36.4; O2SAT 97; BMI 19.9
[2017-08-26] VITALS (27 sets, daily range): BP systolic 101–166; BP diastolic 56–75; PULSE 52–67; TEMP 36.4–37.1; O2SAT 94–99; BMI 20.7
[2017-08-26 00:08] LABS: MAGNESIUM 2.4 mg/dl (1.8-2.4); THYROID STIMULATING HORMONE 3.13 uIu/ml (0.300-4.500)
--- NOTE | 2017-08-26 00:14 | INTERNAL MEDICINE CONSULTATION ---
DATE OF CONSULTATION: 08/25/2017 PRIMARY CARE PHYSICIAN: Dr. Bella. Patient seen on the request of Dr. Ryan for medical management. HISTORY OF PRESENT ILLNESS: Medical history is significant for hypertension, diabetes type 1, end-stage renal disease on dialysis, chronic anemia (baseline hemoglobin at 11), history of juvenile RA. Recent confinement September 2015 for DKA. Dialysis initiated at that time. One day history of achy right-sided abdominal pain, nausea. No vomiting, no fever, no chills. Intractable pain. Patient consulted Emergency Room. CT abdomen and pelvis with contrast showed perforated appendicitis with possible abscess, cholelithiasis, chronic pancreatitis moderate fecal retention and mild bladder wall thickening. Patient given Cipro and Flagyl in the ER. Currently, admitted under Surgery service. MEDICAL HISTORY: As above. Hemodialysis Saturday, Saturday and Saturday. SURGERIES: Vascular procedures. HOME MEDICATIONS: Include Bumex, PhosLo, Tums, cholecalciferol, hydralazine, NovoLog, Lantus, lisinopril, Lopressor and psyllium. ALLERGIES: ALLERGIC TO ADHESIVES, AMOXICILLIN, AMPICILLIN, ASPIRIN, ERYTHROMYCIN, ETODOLAC, SEVELAMER, PENICILLIN, SULFA. FAMILY HISTORY: Diabetes, bladder cancer. 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 REVIEW OF SYSTEMS: As per HPI, all other ROS negative. PHYSICAL EXAMINATION: VITAL SIGNS: Blood pressure was noted to be 165/89, pulse rate 60, RR 18 T 37 O2 98RA GENERAL: Pleasant, in no respiratory distress. SKIN: sallow, warm. HEENT: Pale palpebral conjunctivae. No ptosis. Dry mucosa. NECK: No JVD. Supple. No tenderness. CHEST: Clear to auscultation. No tenderness. CV : Regular rate and rhythm. Palpable LE pulses. ABDOMEN: Right lower quadrant tenderness, distention. EXTREMITIES: No LE edema, no tenderness. No gross deformities. NEUROLOGIC: Coherent. No gross focality. LABORATORY DATA: Hemoglobin 11.6, hematocrit 36, white count 9.6, platelets 319. Sodium 130, potassium 3.7, chloride 91, CO2 28, BUN 14, creatinine 0.6, glucose 146. CT abdomen as above. ASSESSMENT : 1. Ruptured appendicitis, no sepsis. 2. Hypertension, slightly elevated secondary to pain and missed nighttime meds. 3. DM1. Patient w/ hypoglycemic episodes at the ER secondary to poor p.o. intake today. 4. ESRD on HD 5. Chronic anemia secondary to ESRD. Hemoglobin at baseline 6. Juvenile rheumatoid arthritis as per records. RECOMMENDATIONS: Agree with El and Haseeb for intra-abdominal infection. Pharmacy consult for appropriate renal dosing of Ciprofloxacin. Telemetry admission to facilitate parenteral administration of home BB while patient is strictly n.p.o. IV hydralazine RTC while patient strictly n.p.o. Nephrology consult regarding dialysis management. Basal insulin adjusted for n.p.o. state, ISS BG goal 140-180. Check hemoglobin A1c. May need dextrose containing IV fluid, Accu-Cheks every 4 hours if with recurrent hypoglycemia. DVT prophylaxis, SCDs for now. Consider pharmacologic anticoagulation with heparin 5000 units subcutaneous every 8 hours once bleeding risk is deemed to be minimal and negligible. Thank you very much for consultation. Dr. Black will follow patient's progress. [facility]
[2017-08-26] MEDS ORDERED: HydrALAZINE HCL 20 MG/ML VIAL IV. STA (00:18)
[2017-08-26] MEDS ORDERED: SODIUM CHLORIDE 0.9% 1000ML 1,000 ML IV SCH (01:30)
[2017-08-26] MEDS: MoRPHine SULFATE 2 MG/ML CARP IV PRN ×3 (02:31→22:36)
[2017-08-26] MEDS ORDERED: INFLUENZA ADMINISTRATION CHARGE ONE (03:00)
[2017-08-26] MEDS ORDERED: INFLUENZA VACCINE HIGH DOSE 65+ 0.5 ML SYR IM. ONE (03:00)
[2017-08-26] MEDS: DEXTROSE 50% 50 ML SYR IV PRN ×2 (03:16→07:21)
[2017-08-26] MEDS ORDERED: DEXTROSE 50% 50 ML SYR IV STA (03:24)
[2017-08-26] MEDS ORDERED: HydrALAZINE HCL 20 MG/ML VIAL IV. ONE (03:57)
[2017-08-26 04:34] LABS: BASO % 0.1 %; BASO ABS # 0.01 K/uL (0-0.2); COMPLETE YES; HEMATOCRIT 31.4 % (37-47); IG% 0.3 %; LYMPH % 12.7 %; LYMPH ABS # 0.98 K/uL (1.2-3.4); MEAN CORPUSCULAR HEMOGLOBIN 31.4 pg (25-34); MEAN CORPUSCULAR HGB CONC 33.4 g/dl (32-36); MEAN PLATELET VOLUME 8.8 fL (7.4-10.4); MONO % 7.4 %; NEUT % 79.5 %; PLATELET COUNT 254 K/uL (130-400); RED BLOOD COUNT 3.34 M/uL (4.2-5.4); WHITE BLOOD COUNT 7.74 K/uL (4.8-10.8)
[2017-08-26 05:06] LABS: BUN/CREATININE RATIO 7.6 (10-20); CALCIUM 7.5 mg/dl (8.5-10.1); CREATININE 6.39 mg/dl (0.60-1.20); MAGNESIUM 2.2 mg/dl (1.8-2.4); POTASSIUM 3.7 mmol/L (3.5-5.1)
[2017-08-26] MEDS: METRONIDAZOLE / NSS 500 MG in PREMIXED NSS 100 ML IV SCH ×3 (05:17→21:49)
[2017-08-26] MEDS: METOPROLOL TARTRATE 1 MG/ML VIAL IV. SCH ×3 (05:18→18:15)
[2017-08-26] MEDS ORDERED: INSULIN ASPART 100 UNITS/ML 3 ML PEN SC SCH ×2 (07:00→08:00)
[2017-08-26] MEDS: INSULIN GLARGINE SOLOSTAR 100 UNITS/ML 3 ML PEN SC SCH (08:03)
[2017-08-26] MEDS: D5W AND NSS 1,000 ML IV SCH (08:21)
[2017-08-26 08:57] LABS: ESTIMATED AVERAGE GLUCOSE 166 mg/dl; HA1C FLAG Normal (Normal)
[2017-08-26] MEDS ORDERED: INSULIN GLARGINE SOLOSTAR 100 UNITS/ML 3 ML PEN SC SCH (09:00)
[2017-08-26] MEDS ORDERED: NURSING VERBAL MED ORDER ONE (09:00)
[2017-08-26] MEDS ORDERED: HydrALAZINE HCL 20 MG/ML VIAL IV. SCH ×3 (09:00→21:00)
[2017-08-26] MEDS ORDERED: CIPROFLOXACIN CONSULT ACTIVE PRN ×2 (09:00)
--- NOTE | 2017-08-26 09:34 | Nephrology Consultation ---
Nephrology Consultation Date & Providers Date of Consultation: Aug 26, 2017. Primary Care Provider: Sixto Bella M.D. Referring Provider: Reason for Consultation ESRD on HD History of Present Illness Mrs. Turner is a 67 year-old female seen at the request of Dr. Ryan for management of ESRD. Medical records in the EMR were reviewed. rFieda is known to me from outpatient hemodialysis. She dialyzes on a MWF schedule at [facility] in [place] under the care of Dr. Decker. Her last hemodialysis treatment was completed on Saturday without complications. Overall, she has been tolerating hemodialysis well. She does note some recent weight loss. She has been leaving dialysis slightly less than her EDW. She reports that she left dialysis on Saturday at 49.5 kg. Typical UF ~2 kg. Appetite has been slightly reduced recently. She has been avoiding foods high in phosphorus due to persistent hyperphosphatemia and difficulty tolerating binders. On Saturday, she developed sudden onset of stabbing right lower quadrant abdominal pain. The pain persisted and she presented to the ED yesterday for additional evaluation. She denies fevers or chills. She denies diarrhea. She has not experienced similar symptoms in the past. Symptoms are improving. CT abdomen and pelvis with contrast showed perforated appendix with possible abscess, cholelithiasis, chronic pancreatitis moderate fecal retention and mild bladder wall thickening. Cipro and Flagyl were started in the ER. In 2008, she was hospitalized at [facility] with liver and kidney failure. She required two dialysis treatments and was seen by Dr. Eklins as an outpatient for a brief period of time. She reports that she was diagnosed with stage III CKD but a reported EGFR of 18%. She did not maintain follow up as she felt well. The patient has AODM for > 20 years. The patient has had hypertension managed with KARAN inhibitor, hydralazine and beta brandan therapy. Past Medical/Surgical History Medical: -- ESRD on HD -- HTN -- DMII -- Hyperphosphatemia -- Secondary hyperparathyroidism -- JRA Surgical: AVF Allergies Coded Allergies: Adhesives (Verified Allergy, Intermediate, RASH, 08/25/17) Amoxicillin (Verified Allergy, Intermediate, RASH, 08/25/17) Ampicillin (Verified Allergy, Intermediate, RASH, 08/25/17) Erythromycin (Verified Allergy, Intermediate, RASH, 08/25/17) Etodolac (Verified Allergy, Intermediate, RASH, 08/25/17) Penicillins (Verified Allergy, Intermediate, RASH, 08/25/17) Sulfa Antibiotics (Verified Allergy, Intermediate, RASH, 08/25/17) Aspirin (Verified Allergy, Mild, RASH, 08/25/17) Sevelamer (Verified Allergy, Mild, rash, 08/25/17) Inpatient Medications Current Inpatient Medications Medications (Trade) Dose Ordered Sig/Eduardo Route Start Time Stop Time Status Last Admin Dose Admin Ioversol (Optiray 320) 116 ml UD PRN IV 08/25/17 20:30 08/29/17 20:29 Glucose (Glucose 40% Gel) 15-30 GRAMS 15 GRAMS... UD PRN PO 08/25/17 22:45 09/24/17 22:44 Glucose (Glucose Chew Tab) 4-8 Tablets 4 Tabl... UD PRN PO 08/25/17 22:45 09/24/17 22:44 Dextrose (Dextrose 50% 50ML Syringe) 25-50ML OF 50% DW IV FOR... UD PRN IV 08/25/17 22:45 09/24/17 22:44 08/26/17 07:21 25 ML Glucagon (Glucagon Inj) 1 mg UD PRN SQ 08/25/17 22:45 09/24/17 22:44 Morphine Sulfate (MoRPHine SULFATE INJ) 2 mg Q1H PRN IV 08/25/17 22:45 09/08/17 22:44 08/26/17 02:31 2 MG Ondansetron HCl (Zofran Inj) 4 mg Q6H PRN IV 08/25/17 22:45 09/24/17 22:44 Metronidazole 500 mg/Prmx 100 ml @ 100 mls/hr Q8 IV 08/26/17 06:00 08/27/17 05:59 08/26/17 05:17 100 MLS/HR Metoprolol Tartrate (Lopressor Iv) 2.5 mg Q6H IV. 08/26/17 06:00 09/25/17 05:59 08/26/17 05:18 2.5 MG Ciprofloxacin (Consult) 1 ea DAILY PRN N/A 08/26/17 09:00 09/25/17 08:59 Insulin Aspart (novoLOG ASPART) SLIDING SCALE If C... Q4H SC 08/26/17 08:00 09/25/17 06:59 Insulin Glargine (Lantus Solostar Pen) 3 units DAILY SC 08/26/17 09:00 09/25/17 08:59 08/26/17 08:03 3 UNITS Hydralazine HCl (HydrALAZINE INJ) 2.5 mg Q6H IV. 08/26/17 12:00 09/25/17 08:59 Dextrose/Sodium Chloride 1,000 ml @ 60 mls/hr [id number] IV 08/26/17 07:45 09/25/17 07:44 08/26/17 08:21 60 MLS/HR Miscellaneous Information (Nursing Verbal Med Order) 1 ea ONE ONCE N/A 08/26/17 09:00 08/26/17 09:01 UNV Family History No pertinent family history Social History Smoking Status: Never Smoker Marital Status: 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 Review of Systems A complete review of systems was performed. Pertinent positives are noted above. All other systems are negative. Physical Exam Date Time Temp Pulse Resp B/P (MAP) Pulse Ox O2 Delivery O2 Flow Rate FiO2 08/26/17 08:00 96 Room Air 08/26/17 07:59 36.5 59 18 123/56 (78) 96 Room Air 08/26/17 05:18 62 127/57 08/26/17 05:16 127/57 (80) 08/26/17 04:49 36.5 57 16 136/58 (84) 97 08/26/17 04:00 Room Air 08/26/17 03:45 36.4 52 20 160/60 (93) 99 Room Air 08/26/17 00:03 57 174/68 08/26/17 00:00 Room Air 08/25/17 23:43 36.4 62 20 174/71 97 Room Air 08/25/17 23:33 56 18 163/95 98 Room Air 08/25/17 21:53 55 18 165/89 98 Room Air 08/25/17 19:47 64 18 184/78 98 Room Air 08/25/17 17:19 59 18 168/67 98 Room Air 08/25/17 15:23 36.5 56 16 195/81 99 Room Air General Appearance: no apparent distress, + thin Head: normocephalic, atraumatic Eyes: normal inspection, sclerae normal ENT: normal ENT inspection, pharynx normal Neck: supple, no JVD Respiratory/Chest: lungs clear, no respiratory distress, no accessory muscle use Cardiovascular: regular rate, rhythm, no gallop Abdomen/GI: normal bowel sounds, soft, + tenderness (mild) Back: no CVA tenderness Extremities/Musculoskelatal: normal inspection, no pedal edema, + pertinent finding (LUE AVF with thrill and bruit) Neurologic/Psych: alert Skin: normal color Laboratory Results Last 24 Hours Test 08/25/17 15:40 08/25/17 20:59 08/25/17 22:13 08/25/17 23:59 White Blood Count 9.63 K/uL Red Blood Count 3.76 M/uL Hemoglobin 11.6 g/dL Hematocrit 36.0 % Mean Corpuscular Volume 95.7 fL Mean Corpuscular Hemoglobin 30.9 pg Mean Corpuscular Hemoglobin Concent 32.2 g/dl Platelet Count 319 K/uL Mean Platelet Volume 8.9 fL Neutrophils (%) (Auto) 84.2 % Lymphocytes (%) (Auto) 9.9 % Monocytes (%) (Auto) 5.4 % Eosinophils (%) (Auto) 0.0 % Basophils (%) (Auto) 0.2 % Neutrophils # (Auto) 8.11 K/uL Lymphocytes # (Auto) 0.95 K/uL Monocytes # (Auto) 0.52 K/uL Eosinophils # (Auto) 0.00 K/uL Basophils # (Auto) 0.02 K/uL RDW Standard Deviation 50.5 fL RDW Coefficient of Variation 14.4 % Immature Granulocyte % (Auto) 0.3 % Immature Granulocyte # (Auto) 0.03 K/uL Sodium Level 130 mmol/L Potassium Level 3.7 mmol/L Chloride Level 91 mmol/L Carbon Dioxide Level 28 mmol/L Anion Gap 11.0 mmol/L Blood Urea Nitrogen 45 mg/dl Creatinine 6.09 mg/dl Est Creatinine Clear Calc Drug Dose 6.9 ml/min Estimated GFR () 7.5 Estimated GFR (Non- 6.5 BUN/Creatinine Ratio 7.4 Random Glucose 146 mg/dl Estimated Average Glucose 166 mg/dl Hemoglobin A1c 7.4 % Calcium Level 8.4 mg/dl Magnesium Level 2.4 mg/dl Total Bilirubin 0.4 mg/dl Direct Bilirubin 0.1 mg/dl Aspartate Amino Transf (AST/SGOT) 19 U/L Alanine Aminotransferase (ALT/SGPT) 24 U/L Alkaline Phosphatase 167 U/L Total Protein 7.7 gm/dl Albumin 3.0 gm/dl Lipase 42 U/L Thyroid Stimulating Hormone (TSH) 3.130 uIu/ml Bedside Glucose 58 mg/dl 81 mg/dl 81 mg/dl Test 08/26/17 03:10 08/26/17 03:25 08/26/17 04:25 08/26/17 06:56 Bedside Glucose 64 mg/dl 149 mg/dl 62 mg/dl White Blood Count 7.74 K/uL Red Blood Count 3.34 M/uL Hemoglobin 10.5 g/dL Hematocrit 31.4 % Mean Corpuscular Volume 94.0 fL Mean Corpuscular Hemoglobin 31.4 pg Mean Corpuscular Hemoglobin Concent 33.4 g/dl Platelet Count 254 K/uL Mean Platelet Volume 8.8 fL Neutrophils (%) (Auto) 79.5 % Lymphocytes (%) (Auto) 12.7 % Monocytes (%) (Auto) 7.4 % Eosinophils (%) (Auto) 0.0 % Basophils (%) (Auto) 0.1 % Neutrophils # (Auto) 6.16 K/uL Lymphocytes # (Auto) 0.98 K/uL Monocytes # (Auto) 0.57 K/uL Eosinophils # (Auto) 0.00 K/uL Basophils # (Auto) 0.01 K/uL RDW Standard Deviation 49.4 fL RDW Coefficient of Variation 14.4 % Immature Granulocyte % (Auto) 0.3 % Immature Granulocyte # (Auto) 0.02 K/uL Sodium Level 131 mmol/L Potassium Level 3.7 mmol/L Chloride Level 94 mmol/L Carbon Dioxide Level 27 mmol/L Anion Gap 10.0 mmol/L Blood Urea Nitrogen 48 mg/dl Creatinine 6.39 mg/dl Est Creatinine Clear Calc Drug Dose 6.6 ml/min Estimated GFR () 7.1 Estimated GFR (Non- 6.1 BUN/Creatinine Ratio 7.6 Random Glucose 99 mg/dl Calcium Level 7.5 mg/dl Magnesium Level 2.2 mg/dl Test 08/26/17 07:19 08/26/17 07:46 Bedside Glucose 63 mg/dl 110 mg/dl Impression (1) ESRD (end stage renal disease) on dialysis (2) Hyperparathyroidism due to ESRD on dialysis (3) Benign hypertension with ESRD (end-stage renal disease) (4) Acute appendicitis with rupture Frieda Turner is a 67 year-old female with DM, HTN, jRA, ESRD on HD. She was admitted with ruptured appendicitis. She is afebrile. WBC normal. No signs of systemic infection. She is being managed conservatively with Cipro and Flagyl. Hypoglycemic this AM while NPO. She is being maintained on an infusion of D5NS. Blood pressure and volume status acceptable at this time. Hypertension overnight noted. Plan HD today for clearance and UF. UF goal 2-3 L as tolerated. Orders for dialysis have been entered into the EMR. Recommendations -- Plan HD today, UF goal ~2 kg -- Epogen 4000 QHD for Hgb < 11 -- Hold PO4 binders while NPO -- Document I/O's and AM weight -- Check metabolic profile daily while inpatient -- Medications appropriately dosed for renal function
[2017-08-26 11:21] LABS: HEPATITIS B AB POS
--- NOTE | 2017-08-26 11:45 | Progress Note ---
Internal Med Progress Note Date of Service: Aug 26, 2017. Provider Documentation: SUBJECTIVE: The patient was seen and examined Complains of some RLQ pain No fever,No Nausea and or Vomiting OBJECTIVE: Vital Signs-as noted below Exam: General-NO distress at rest Eyes-normal ENT-normal Neck-supple Lungs-clear to auscultate bilaterally Heart-Regular,no murmur appreciated Abdomen-Soft ,tender RLQ Extremities-Negative Neuro-AAOx3 Lab data as noted below. ASSESSMENT & PLAN: Ruptured appendicitis, no sepsis. Walled off Abscess at that region No fever and no tachycardia and no increase in WCC Has been on IV Cipro and Flagyl Management as per Surgery Clinically stable Hypertension, slightly elevated secondary to pain and missed nighttime meds. NPO now 'Continue IV IV hydralazine RTC while patient strictly n.p.o. DM1. Patient w/ hypoglycemic episodes at the ER secondary to poor p.o. intake today. Basal insulin adjusted for n.p.o. state, ISS BG goal 140-180. Check hemoglobin A1c.-7.4 SSI and check BS Q6H ESRD on HD Nephrology consult regarding dialysis management. Chronic anemia secondary to ESRD. Hemoglobin at baseline Juvenile rheumatoid arthritis as per records. No acute symptoms DVT prophylaxis, SCDs for now. Consider pharmacologic anticoagulation with heparin 5000 units subcutaneous every 8 hours once bleeding risk is deemed to be minimal and negligible. Vital Signs: Date Time Temp Pulse Resp B/P (MAP) Pulse Ox O2 Delivery O2 Flow Rate FiO2 08/26/17 11:29 36.9 58 18 166/65 (98) 97 Room Air 08/26/17 08:00 96 Room Air 08/26/17 07:59 36.5 59 18 123/56 (78) 96 Room Air 08/26/17 05:18 62 127/57 08/26/17 05:16 127/57 (80) 08/26/17 04:49 36.5 57 16 136/58 (84) 97 08/26/17 04:00 Room Air 08/26/17 03:45 36.4 52 20 160/60 (93) 99 Room Air 08/26/17 00:03 57 174/68 08/26/17 00:00 Room Air 08/25/17 23:43 36.4 62 20 174/71 97 Room Air 08/25/17 23:33 56 18 163/95 98 Room Air 08/25/17 21:53 55 18 165/89 98 Room Air 08/25/17 19:47 64 18 184/78 98 Room Air 08/25/17 17:19 59 18 168/67 98 Room Air 08/25/17 15:23 36.5 56 16 195/81 99 Room Air Lab Results: Results Past 24 Hours Test 08/25/17 15:40 08/25/17 20:59 08/25/17 22:13 08/25/17 23:59 Range/Units White Blood Count 9.63 4.8-10.8 K/uL Red Blood Count 3.76 4.2-5.4 M/uL Hemoglobin 11.6 12.0-16.0 g/dL Hematocrit 36.0 37-47 % Mean Corpuscular Volume 95.7 80-100 fL Mean Corpuscular Hemoglobin 30.9 25-34 pg Mean Corpuscular Hemoglobin Concent 32.2 32-36 g/dl Platelet Count 319 130-400 K/uL Mean Platelet Volume 8.9 7.4-10.4 fL Neutrophils (%) (Auto) 84.2 % Lymphocytes (%) (Auto) 9.9 % Monocytes (%) (Auto) 5.4 % Eosinophils (%) (Auto) 0.0 % Basophils (%) (Auto) 0.2 % Neutrophils # (Auto) 8.11 1.4-6.5 K/uL Lymphocytes # (Auto) 0.95 1.2-3.4 K/uL Monocytes # (Auto) 0.52 0.11-0.59 K/uL Eosinophils # (Auto) 0.00 0-0.5 K/uL Basophils # (Auto) 0.02 0-0.2 K/uL RDW Standard Deviation 50.5 36.4-46.3 fL RDW Coefficient of Variation 14.4 11.5-14.5 % Immature Granulocyte % (Auto) 0.3 % Immature Granulocyte # (Auto) 0.03 0.00-0.02 K/uL Sodium Level 130 136-145 mmol/L Potassium Level 3.7 3.5-5.1 mmol/L Chloride Level 91 98-107 mmol/L Carbon Dioxide Level 28 21-32 mmol/L Anion Gap 11.0 3-11 mmol/L Blood Urea Nitrogen 45 7-18 mg/dl Creatinine 6.09 0.60-1.20 mg/dl Est Creatinine Clear Calc Drug Dose 6.9 ml/min Estimated GFR () 7.5 Estimated GFR (Non- 6.5 BUN/Creatinine Ratio 7.4 10-20 Random Glucose 146 70-99 mg/dl Estimated Average Glucose 166 mg/dl Hemoglobin A1c 7.4 4.5-5.6 % Calcium Level 8.4 8.5-10.1 mg/dl Magnesium Level 2.4 1.8-2.4 mg/dl Total Bilirubin 0.4 0.2-1 mg/dl Direct Bilirubin 0.1 0-0.2 mg/dl Aspartate Amino Transf (AST/SGOT) 19 15-37 U/L Alanine Aminotransferase (ALT/SGPT) 24 12-78 U/L Alkaline Phosphatase 167 45-117 U/L Total Protein 7.7 6.4-8.2 gm/dl Albumin 3.0 3.4-5.0 gm/dl Lipase 42 73-393 U/L Thyroid Stimulating Hormone (TSH) 3.130 0.300-4.500 uIu/ml Bedside Glucose 58 81 81 70-90 mg/dl Test 08/26/17 03:10 08/26/17 03:25 08/26/17 04:25 08/26/17 06:56 Range/Units Bedside Glucose 64 149 62 70-90 mg/dl White Blood Count 7.74 4.8-10.8 K/uL Red Blood Count 3.34 4.2-5.4 M/uL Hemoglobin 10.5 12.0-16.0 g/dL Hematocrit 31.4 37-47 % Mean Corpuscular Volume 94.0 80-100 fL Mean Corpuscular Hemoglobin 31.4 25-34 pg Mean Corpuscular Hemoglobin Concent 33.4 32-36 g/dl Platelet Count 254 130-400 K/uL Mean Platelet Volume 8.8 7.4-10.4 fL Neutrophils (%) (Auto) 79.5 % Lymphocytes (%) (Auto) 12.7 % Monocytes (%) (Auto) 7.4 % Eosinophils (%) (Auto) 0.0 % Basophils (%) (Auto) 0.1 % Neutrophils # (Auto) 6.16 1.4-6.5 K/uL Lymphocytes # (Auto) 0.98 1.2-3.4 K/uL Monocytes # (Auto) 0.57 0.11-0.59 K/uL Eosinophils # (Auto) 0.00 0-0.5 K/uL Basophils # (Auto) 0.01 0-0.2 K/uL RDW Standard Deviation 49.4 36.4-46.3 fL RDW Coefficient of Variation 14.4 11.5-14.5 % Immature Granulocyte % (Auto) 0.3 % Immature Granulocyte # (Auto) 0.02 0.00-0.02 K/uL Sodium Level 131 136-145 mmol/L Potassium Level 3.7 3.5-5.1 mmol/L Chloride Level 94 98-107 mmol/L Carbon Dioxide Level 27 21-32 mmol/L Anion Gap 10.0 3-11 mmol/L Blood Urea Nitrogen 48 7-18 mg/dl Creatinine 6.39 0.60-1.20 mg/dl Est Creatinine Clear Calc Drug Dose 6.6 ml/min Estimated GFR () 7.1 Estimated GFR (Non- 6.1 BUN/Creatinine Ratio 7.6 10-20 Random Glucose 99 70-99 mg/dl Calcium Level 7.5 8.5-10.1 mg/dl Magnesium Level 2.2 1.8-2.4 mg/dl Test 08/26/17 07:19 08/26/17 07:46 08/26/17 10:25 08/26/17 11:20 Range/Units Bedside Glucose 63 110 92 70-90 mg/dl Hepatitis B Surface Antigen NEG NEG Hepatitis B Surface Antibody POS
[2017-08-26] MEDS: HydrALAZINE HCL 20 MG/ML VIAL IV. SCH ×2 (12:00→18:13)
[2017-08-26] MEDS: INSULIN ASPART 100 UNITS/ML 3 ML PEN SC SCH ×2 (12:00→18:00)
[2017-08-26] MEDS ORDERED: EPOETIN ALFA 4000 UNITS/ML VIAL IV SCH (12:00)
--- NOTE | 2017-08-26 12:45 | Surgery Progress Note ---
Surgery Progress Note Date of Service Aug 26, 2017. Subjective No nausea, No vomiting Mild decrease in pain Objective Vital Signs: Date Time Temp Pulse Resp B/P (MAP) Pulse Ox O2 Delivery O2 Flow Rate FiO2 08/26/17 12:00 55 144/67 08/26/17 12:00 96 Room Air 08/26/17 11:49 57 142/65 08/26/17 11:39 37.1 63 125/75 (92) 08/26/17 11:29 36.9 58 18 166/65 (98) 97 Room Air 08/26/17 08:00 96 Room Air 08/26/17 07:59 36.5 59 18 123/56 (78) 96 Room Air 08/26/17 05:18 62 127/57 08/26/17 05:16 127/57 (80) 08/26/17 04:49 36.5 57 16 136/58 (84) 97 08/26/17 04:00 Room Air 08/26/17 03:45 36.4 52 20 160/60 (93) 99 Room Air 08/26/17 00:03 57 174/68 08/26/17 00:00 Room Air 08/25/17 23:43 36.4 62 20 174/71 97 Room Air 08/25/17 23:33 56 18 163/95 98 Room Air 08/25/17 21:53 55 18 165/89 98 Room Air 08/25/17 19:47 64 18 184/78 98 Room Air 08/25/17 17:19 59 18 168/67 98 Room Air 08/25/17 15:23 36.5 56 16 195/81 99 Room Air Abdomen: non distended, soft, + tenderness (unchanged) Laboratory Results: Results Past 24 Hours Test 08/25/17 15:40 08/25/17 20:59 08/25/17 22:13 08/25/17 23:59 Range/Units White Blood Count 9.63 4.8-10.8 K/uL Red Blood Count 3.76 4.2-5.4 M/uL Hemoglobin 11.6 12.0-16.0 g/dL Hematocrit 36.0 37-47 % Mean Corpuscular Volume 95.7 80-100 fL Mean Corpuscular Hemoglobin 30.9 25-34 pg Mean Corpuscular Hemoglobin Concent 32.2 32-36 g/dl Platelet Count 319 130-400 K/uL Mean Platelet Volume 8.9 7.4-10.4 fL Neutrophils (%) (Auto) 84.2 % Lymphocytes (%) (Auto) 9.9 % Monocytes (%) (Auto) 5.4 % Eosinophils (%) (Auto) 0.0 % Basophils (%) (Auto) 0.2 % Neutrophils # (Auto) 8.11 1.4-6.5 K/uL Lymphocytes # (Auto) 0.95 1.2-3.4 K/uL Monocytes # (Auto) 0.52 0.11-0.59 K/uL Eosinophils # (Auto) 0.00 0-0.5 K/uL Basophils # (Auto) 0.02 0-0.2 K/uL RDW Standard Deviation 50.5 36.4-46.3 fL RDW Coefficient of Variation 14.4 11.5-14.5 % Immature Granulocyte % (Auto) 0.3 % Immature Granulocyte # (Auto) 0.03 0.00-0.02 K/uL Sodium Level 130 136-145 mmol/L Potassium Level 3.7 3.5-5.1 mmol/L Chloride Level 91 98-107 mmol/L Carbon Dioxide Level 28 21-32 mmol/L Anion Gap 11.0 3-11 mmol/L Blood Urea Nitrogen 45 7-18 mg/dl Creatinine 6.09 0.60-1.20 mg/dl Est Creatinine Clear Calc Drug Dose 6.9 ml/min Estimated GFR () 7.5 Estimated GFR (Non- 6.5 BUN/Creatinine Ratio 7.4 10-20 Random Glucose 146 70-99 mg/dl Estimated Average Glucose 166 mg/dl Hemoglobin A1c 7.4 4.5-5.6 % Calcium Level 8.4 8.5-10.1 mg/dl Magnesium Level 2.4 1.8-2.4 mg/dl Total Bilirubin 0.4 0.2-1 mg/dl Direct Bilirubin 0.1 0-0.2 mg/dl Aspartate Amino Transf (AST/SGOT) 19 15-37 U/L Alanine Aminotransferase (ALT/SGPT) 24 12-78 U/L Alkaline Phosphatase 167 45-117 U/L Total Protein 7.7 6.4-8.2 gm/dl Albumin 3.0 3.4-5.0 gm/dl Lipase 42 73-393 U/L Thyroid Stimulating Hormone (TSH) 3.130 0.300-4.500 uIu/ml Bedside Glucose 58 81 81 70-90 mg/dl Test 08/26/17 03:10 08/26/17 03:25 08/26/17 04:25 08/26/17 06:56 Range/Units Bedside Glucose 64 149 62 70-90 mg/dl White Blood Count 7.74 4.8-10.8 K/uL Red Blood Count 3.34 4.2-5.4 M/uL Hemoglobin 10.5 12.0-16.0 g/dL Hematocrit 31.4 37-47 % Mean Corpuscular Volume 94.0 80-100 fL Mean Corpuscular Hemoglobin 31.4 25-34 pg Mean Corpuscular Hemoglobin Concent 33.4 32-36 g/dl Platelet Count 254 130-400 K/uL Mean Platelet Volume 8.8 7.4-10.4 fL Neutrophils (%) (Auto) 79.5 % Lymphocytes (%) (Auto) 12.7 % Monocytes (%) (Auto) 7.4 % Eosinophils (%) (Auto) 0.0 % Basophils (%) (Auto) 0.1 % Neutrophils # (Auto) 6.16 1.4-6.5 K/uL Lymphocytes # (Auto) 0.98 1.2-3.4 K/uL Monocytes # (Auto) 0.57 0.11-0.59 K/uL Eosinophils # (Auto) 0.00 0-0.5 K/uL Basophils # (Auto) 0.01 0-0.2 K/uL RDW Standard Deviation 49.4 36.4-46.3 fL RDW Coefficient of Variation 14.4 11.5-14.5 % Immature Granulocyte % (Auto) 0.3 % Immature Granulocyte # (Auto) 0.02 0.00-0.02 K/uL Sodium Level 131 136-145 mmol/L Potassium Level 3.7 3.5-5.1 mmol/L Chloride Level 94 98-107 mmol/L Carbon Dioxide Level 27 21-32 mmol/L Anion Gap 10.0 3-11 mmol/L Blood Urea Nitrogen 48 7-18 mg/dl Creatinine 6.39 0.60-1.20 mg/dl Est Creatinine Clear Calc Drug Dose 6.6 ml/min Estimated GFR () 7.1 Estimated GFR (Non- 6.1 BUN/Creatinine Ratio 7.6 10-20 Random Glucose 99 70-99 mg/dl Calcium Level 7.5 8.5-10.1 mg/dl Magnesium Level 2.2 1.8-2.4 mg/dl Test 08/26/17 07:19 08/26/17 07:46 08/26/17 10:25 08/26/17 11:20 Range/Units Bedside Glucose 63 110 92 70-90 mg/dl Hepatitis B Surface Antigen NEG NEG Hepatitis B Surface Antibody POS Assessment & Plan Appendicitis with perforation Stabel Continue conservative management Continue IV antibiotics Continue NPO DM, CRF and HTN management as per internal medicine
[2017-08-26] MEDS: CEFTRIAXONE SOD INJ 1 GM in DEXTROSE 5% ADD-VANTAGE 50ML 50 ML IV SCH (15:35)
[2017-08-27] VITALS (10 sets, daily range): BP systolic 135–178; BP diastolic 56–74; PULSE 65–70; TEMP 36.5–37.1; O2SAT 96–98; Ht 157.5 cm; Wt 50.2 kg
[2017-08-27] MEDS: HydrALAZINE HCL 20 MG/ML VIAL IV. SCH ×4 (00:22→18:22)
[2017-08-27] MEDS: D5W AND NSS 1,000 ML IV SCH (00:22)
[2017-08-27] MEDS: METOPROLOL TARTRATE 1 MG/ML VIAL IV. SCH ×4 (00:22→18:21)
[2017-08-27] MEDS: INSULIN ASPART 100 UNITS/ML 3 ML PEN SC SCH ×5 (06:32→21:47)
[2017-08-27 07:07] LABS: BUN/CREATININE RATIO 4.8 (10-20); CALCIUM 8.2 mg/dl (8.5-10.1); CREATININE 4.25 mg/dl (0.60-1.20); PHOSPHORUS 5.5 mg/dl (2.5-4.9); POTASSIUM 3.8 mmol/L (3.5-5.1)
[2017-08-27] MEDS: INSULIN GLARGINE SOLOSTAR 100 UNITS/ML 3 ML PEN SC SCH (08:22)
--- NOTE | 2017-08-27 10:03 | Surgery Progress Note ---
Surgery Progress Note Date of Service Aug 27, 2017. Subjective Post OP Day: HD # 2 + feeling well pain slightly better than yesterday, all located in the right lower quadrant, pain controlled with pain medication slight nausea that lasted a few minutes, no vomiting "may have been the meds" ambulated once yesterday Objective Vital Signs: Date Time Temp Pulse Resp B/P (MAP) Pulse Ox O2 Delivery O2 Flow Rate FiO2 08/27/17 08:31 Room Air 08/27/17 08:00 Room Air 08/27/17 07:42 37.1 67 18 136/56 (82) 96 Room Air 08/27/17 06:06 65 135/62 08/27/17 04:00 Room Air 08/27/17 03:54 36.8 65 18 135/62 (86) 97 Room Air 08/27/17 00:22 66 155/64 08/27/17 00:00 Room Air 08/26/17 23:51 36.9 66 18 155/64 (94) 95 Room Air 08/26/17 20:00 Room Air 08/26/17 18:52 37.0 67 18 127/56 (79) 94 Room Air 08/26/17 18:15 67 136/48 08/26/17 16:00 96 Room Air 08/26/17 15:59 36.9 67 20 135/57 (83) 97 Room Air 08/26/17 15:40 37.1 62 142/63 (89) 08/26/17 15:15 63 101/56 08/26/17 15:00 62 111/59 08/26/17 14:45 62 104/56 08/26/17 14:30 60 116/58 08/26/17 14:15 58 119/58 08/26/17 14:00 59 139/62 08/26/17 13:45 61 119/67 08/26/17 13:30 56 118/61 08/26/17 13:15 55 124/61 08/26/17 13:00 54 125/63 08/26/17 12:45 54 115/62 08/26/17 12:30 55 126/63 08/26/17 12:15 55 129/66 08/26/17 12:00 55 144/67 08/26/17 12:00 96 Room Air 08/26/17 11:49 57 142/65 08/26/17 11:39 37.1 63 125/75 (92) 08/26/17 11:29 36.9 58 18 166/65 (98) 97 Room Air General Appearance: WD/WN, no apparent distress Head: normocephalic, atraumatic Neck: trachea midline Respiratory/Chest: no respiratory distress, no accessory muscle use Abdomen: non distended, soft, no organomegaly, no pulsatile mass, + tenderness (RLQ on mild palpation, no rigidity, there is voluntary and involuntary guarding of the RLQ, positive [place]) Laboratory Results: Results Past 24 Hours Test 08/26/17 10:25 08/26/17 11:20 08/26/17 23:57 08/27/17 06:10 Range/Units Hepatitis B Surface Antigen NEG NEG Hepatitis B Surface Antibody POS Hepatitis B Core IgM Antibody NON-REACTIVE NON-REACTIVE Bedside Glucose 92 92 70-90 mg/dl Sodium Level 136 136-145 mmol/L Potassium Level 3.8 3.5-5.1 mmol/L Chloride Level 101 98-107 mmol/L Carbon Dioxide Level 23 21-32 mmol/L Anion Gap 12.0 3-11 mmol/L Blood Urea Nitrogen 21 7-18 mg/dl Creatinine 4.25 0.60-1.20 mg/dl Est Creatinine Clear Calc Drug Dose 10.0 ml/min Estimated GFR () 11.7 Estimated GFR (Non- 10.1 BUN/Creatinine Ratio 4.8 10-20 Random Glucose 109 70-99 mg/dl Calcium Level 8.2 8.5-10.1 mg/dl Phosphorus Level 5.5 2.5-4.9 mg/dl Albumin 2.4 3.4-5.0 gm/dl Test 08/27/17 06:23 Range/Units Bedside Glucose 107 70-90 mg/dl Assessment & Plan 67 year-old female with ruptured appendicitis with abscess formation. She has been afebrile and vitals stable. No leukocytosis (cbc not checked today). Abdominal pain slightly improved compared to yesterday. Abdomen is soft, no peritonitis or rigidity but there is guarding and tenderness in the RLQ on mild palpation. Plan: Continue pain management as needed Continue IV fluids and IV antibiotics Continue NPO Continue current medical management Encourage ambulation Continue SCDs am labs including cbc and bmp Dr. Perez has seen and examined patient, agrees with above
--- NOTE | 2017-08-27 10:09 | Nephrology Progress Note ---
Nephrology Progress Note Date of Service Aug 27, 2017. Chief Complaint ESRD on HD Subjective No acute events overnight. Frieda reports improvement in abdominal pain. No fevers or chills. Denies diarrhea. Tolerated HD yesterday, UF 3 L. Review of Systems A complete review of systems was performed. Pertinent positives are noted above. All other systems are negative. Vital Signs Last 8 Hrs Date Time Temp Pulse Resp B/P (MAP) Pulse Ox O2 Delivery O2 Flow Rate FiO2 08/27/17 08:31 Room Air 08/27/17 08:00 Room Air 08/27/17 07:42 37.1 67 18 136/56 (82) 96 Room Air 08/27/17 06:06 65 135/62 08/27/17 04:00 Room Air 08/27/17 03:54 36.8 65 18 135/62 (86) 97 Room Air Last Recorded Weight Weight (Kilograms): 50.000 Physical Exam General Appearance: no apparent distress, + thin Head: normocephalic, atraumatic Eyes: normal inspection, sclerae normal ENT: normal ENT inspection, pharynx normal Neck: supple, no JVD Respiratory/Chest: lungs clear, no respiratory distress, no accessory muscle use Cardiovascular: regular rate, rhythm, + systolic murmur Abdomen/GI: soft, + tenderness Extremities/Musculoskelatal: normal inspection, no pedal edema, + pertinent finding (LUE AVF with thrill and bruit) Neurologic/Psych: alert, normal mood/affect Family History No pertinent family history Social History Marital Status: 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 Laboratory Results Past 24 Hours 08/27/17 06:10 Test 08/26/17 10:25 08/26/17 11:20 08/26/17 23:57 08/27/17 06:10 Hepatitis B Surface Antigen NEG (NEG) Hepatitis B Surface Antibody POS Hepatitis B Core IgM Antibody NON-REACTIVE (NON-REACTIVE) Bedside Glucose 92 mg/dl (70-90) 92 mg/dl (70-90) Anion Gap 12.0 mmol/L (3-11) Est Creatinine Clear Calc Drug Dose 10.0 ml/min Estimated GFR () 11.7 Estimated GFR (Non- 10.1 BUN/Creatinine Ratio 4.8 (10-20) Calcium Level 8.2 mg/dl (8.5-10.1) Phosphorus Level 5.5 mg/dl (2.5-4.9) Albumin 2.4 gm/dl (3.4-5.0) Test 08/27/17 06:23 Bedside Glucose 107 mg/dl (70-90) Allergies Coded Allergies: Adhesives (Verified Allergy, Intermediate, RASH, 08/25/17) Amoxicillin (Verified Allergy, Intermediate, RASH, 08/25/17) Ampicillin (Verified Allergy, Intermediate, RASH, 08/25/17) Erythromycin (Verified Allergy, Intermediate, RASH, 08/25/17) Etodolac (Verified Allergy, Intermediate, RASH, 08/25/17) Penicillins (Verified Allergy, Intermediate, RASH, 08/25/17) Sulfa Antibiotics (Verified Allergy, Intermediate, RASH, 08/25/17) Aspirin (Verified Allergy, Mild, RASH, 08/25/17) Sevelamer (Verified Allergy, Mild, rash, 08/25/17) Medications Current Inpatient Medications Medications (Trade) Dose Ordered Sig/Eduardo Route Start Time Stop Time Status Last Admin Dose Admin Ioversol (Optiray 320) 116 ml UD PRN IV 08/25/17 20:30 08/29/17 20:29 Glucose (Glucose 40% Gel) 15-30 GRAMS 15 GRAMS... UD PRN PO 08/25/17 22:45 09/24/17 22:44 Glucose (Glucose Chew Tab) 4-8 Tablets 4 Tabl... UD PRN PO 08/25/17 22:45 09/24/17 22:44 Dextrose (Dextrose 50% 50ML Syringe) 25-50ML OF 50% DW IV FOR... UD PRN IV 08/25/17 22:45 09/24/17 22:44 08/26/17 07:21 25 ML Glucagon (Glucagon Inj) 1 mg UD PRN SQ 08/25/17 22:45 09/24/17 22:44 Morphine Sulfate (MoRPHine SULFATE INJ) 2 mg Q1H PRN IV 08/25/17 22:45 09/08/17 22:44 08/26/17 22:36 2 MG Ondansetron HCl (Zofran Inj) 4 mg Q6H PRN IV 08/25/17 22:45 09/24/17 22:44 Metoprolol Tartrate (Lopressor Iv) 2.5 mg Q6H IV. 08/26/17 06:00 09/25/17 05:59 08/27/17 06:06 2.5 MG Insulin Glargine (Lantus Solostar Pen) 3 units DAILY SC 08/26/17 09:00 09/25/17 08:59 08/27/17 08:22 3 UNITS Hydralazine HCl (HydrALAZINE INJ) 2.5 mg Q6H IV. 08/26/17 12:00 09/25/17 08:59 08/27/17 06:06 2.5 MG Dextrose/Sodium Chloride 1,000 ml @ 60 mls/hr [id number] IV 08/26/17 07:45 09/25/17 07:44 08/27/17 00:22 60 MLS/HR Insulin Aspart (novoLOG ASPART) SLIDING SCALE If C... Q6 SC 08/26/17 12:00 09/25/17 11:59 Ceftriaxone Sodium 1 gm/ Dextrose 50 ml @ 120 mls/hr DAILY@1300 IV 08/26/17 13:00 09/05/17 12:59 08/26/17 15:35 120 MLS/HR Impression (1) ESRD (end stage renal disease) on dialysis (2) Hyperparathyroidism due to ESRD on dialysis (3) Benign hypertension with ESRD (end-stage renal disease) (4) Acute appendicitis with rupture Frieda Turner is a 67 year-old female with DM, HTN, jRA, ESRD on HD. She was admitted with ruptured appendicitis. She is afebrile. WBC normal. No signs of systemic infection. She is being managed conservatively with Cipro and Flagyl. HD MWF for clearance and UF. Recommendations -- Plan HD MWF -- 3 L yesterday -- Epogen 4000 QHD for Hgb < 11 -- CBC Q MWF -- Hold PO4 binders while NPO -- Document I/O's and AM weight -- Check metabolic profile daily while inpatient -- Medications appropriately dosed for renal function
[2017-08-27] MEDS: MoRPHine SULFATE 2 MG/ML CARP IV PRN (11:31)
[2017-08-27] MEDS ORDERED: PROMETHAZINE HCL INJ 12.5 MG in SODIUM CHLORIDE 0.9% 50ML 50 ML IV PRN (12:00)
--- NOTE | 2017-08-27 12:04 | Progress Note ---
Internal Med Progress Note Date of Service: Aug 27, 2017. Provider Documentation: SUBJECTIVE: Seen and examined at bedside RLQ abd pain is controlled Denies Nausea, dizziness, chest pain, SOB Has some loose BMs No other complaints OBJECTIVE: Vital Signs-as noted below Physical Exam: General Appearance:Moderately built and nourished, no apparent distress Head: normocephalic, Atraumatic Eyes: normal inspection, EOMI, PERRL Neck: supple, Trachea midline Respiratory/Chest: Normal breath sounds, CTA Cardiovascular: S1, S2, No murmur Abdomen/GI:Soft, RLQ tender, Bowel sounds present Extremities/Musculoskelatal:normal inspection, no edema Neurologic/Psych:AAOX3, grossly no focal neurological deficits Skin: normal color, warm Lab data as noted below. ASSESSMENT & PLAN: Ruptured appendicitis with abscess formation No signs of sepsis. CT ABD as below Continue IV Cipro and Flagyl Management as per Surgery Pain control stable Hypertension: slightly elevated secondary to pain and missed nighttime meds on presentation Continue IV meds while NPO monitor Prolonged QTC: DC Zofran Still on Cipro Will repeat EKG in AM DM1. Patient w/ hypoglycemic episodes at the ER secondary to poor p.o. intake today. Basal insulin adjusted for n.p.o. state, ISS BG goal 140-180. hemoglobin A1c.-7.4 SSI and check BS Q6H ESRD on HD Nephrology consult regarding dialysis management. on MWF HD Chronic anemia secondary to ESRD Hb at baseline Juvenile rheumatoid arthritis as per records. No acute symptoms DVT px: SCDs for now. Will consider pharmacologic anticoagulation with heparin Sq once bleeding risk is deemed to be minimal and negligible. Disposition: Per Primary team PROCEDURES: CT ABD: 1. Again seen is a large inflammatory process centered around the base of the cecum. The appendix is not identified. There is phlegmonous change in this region with a serpiginous fluid collection typical in appearance for abscess. The appearance is highly concerning for perforated appendicitis. 2. No intraperitoneal free air is seen. 3. There is wall thickening involving the base of the cecum and an adjacent loop of the distal/terminal ileum, likely on a reactive basis. 4. There are mildly enlarged mesenteric and retroperitoneal lymph nodes. 5. Cholelithiasis. 6. The pancreas is atrophic with evidence of chronic pancreatitis. The pancreatic duct is dilated and there is a large obstructing stone present within the main pancreatic duct. Consider nonemergent GI follow-up. 7. Bilateral nonobstructing renal calculi. 8. Moderate fecal retention is noted in the right colon. There is no bowel obstruction. 9. Trace pleural effusions. 10. Mild bladder wall thickening suggested. Correlation with urinalysis will be required. 11. Additional findings as above. Vital Signs: Date Time Temp Pulse Resp B/P (MAP) Pulse Ox O2 Delivery O2 Flow Rate FiO2 08/27/17 11:02 36.9 76 146/61 (89) 98 Room Air 08/27/17 08:31 Room Air 08/27/17 08:00 Room Air 08/27/17 07:42 37.1 67 18 136/56 (82) 96 Room Air 08/27/17 06:06 65 135/62 08/27/17 04:00 Room Air 08/27/17 03:54 36.8 65 18 135/62 (86) 97 Room Air 08/27/17 00:22 66 155/64 08/27/17 00:00 Room Air 08/26/17 23:51 36.9 66 18 155/64 (94) 95 Room Air 08/26/17 20:00 Room Air 08/26/17 18:52 37.0 67 18 127/56 (79) 94 Room Air 08/26/17 18:15 67 136/48 08/26/17 16:00 96 Room Air 08/26/17 15:59 36.9 67 20 135/57 (83) 97 Room Air 08/26/17 15:40 37.1 62 142/63 (89) 08/26/17 15:15 63 101/56 08/26/17 15:00 62 111/59 08/26/17 14:45 62 104/56 08/26/17 14:30 60 116/58 08/26/17 14:15 58 119/58 08/26/17 14:00 59 139/62 08/26/17 13:45 61 119/67 08/26/17 13:30 56 118/61 08/26/17 13:15 55 124/61 08/26/17 13:00 54 125/63 08/26/17 12:45 54 115/62 08/26/17 12:30 55 126/63 08/26/17 12:15 55 129/66 08/26/17 12:00 55 144/67 08/26/17 12:00 96 Room Air Lab Results: Results Past 24 Hours Test 08/26/17 23:57 08/27/17 06:10 08/27/17 06:23 08/27/17 11:24 Range/Units Bedside Glucose 92 107 121 70-90 mg/dl Sodium Level 136 136-145 mmol/L Potassium Level 3.8 3.5-5.1 mmol/L Chloride Level 101 98-107 mmol/L Carbon Dioxide Level 23 21-32 mmol/L Anion Gap 12.0 3-11 mmol/L Blood Urea Nitrogen 21 7-18 mg/dl Creatinine 4.25 0.60-1.20 mg/dl Est Creatinine Clear Calc Drug Dose 10.0 ml/min Estimated GFR () 11.7 Estimated GFR (Non- 10.1 BUN/Creatinine Ratio 4.8 10-20 Random Glucose 109 70-99 mg/dl Calcium Level 8.2 8.5-10.1 mg/dl Phosphorus Level 5.5 2.5-4.9 mg/dl Albumin 2.4 3.4-5.0 gm/dl Microbiology Results 08/27/17 C.difficile Toxin B Gene (PCR), Received Pending
[2017-08-27] MEDS: METRONIDAZOLE / NSS 500 MG in PREMIXED NSS 100 ML IV SCH ×2 (13:29→20:46)
[2017-08-27] MEDS: CEFTRIAXONE SOD INJ 1 GM in DEXTROSE 5% ADD-VANTAGE 50ML 50 ML IV SCH (13:34)
[2017-08-27] MEDS ORDERED: NURSING VERBAL MED ORDER ONE (20:30)
[2017-08-28] VITALS (21 sets, daily range): BP systolic 136–180; BP diastolic 61–90; PULSE 61–114; TEMP 36.5–36.9; O2SAT 95–98
[2017-08-28] MEDS: METOPROLOL TARTRATE 1 MG/ML VIAL IV. SCH ×2 (00:04→06:31)
[2017-08-28] MEDS: HydrALAZINE HCL 20 MG/ML VIAL IV. SCH ×2 (00:05→06:32)
[2017-08-28] MEDS: MoRPHine SULFATE 2 MG/ML CARP IV PRN (00:17)
[2017-08-28] MEDS: METRONIDAZOLE / NSS 500 MG in PREMIXED NSS 100 ML IV SCH ×3 (04:29→20:15)
[2017-08-28 06:34] LABS: HEMATOCRIT 28.4 % (37-47); MEAN CELL VOLUME 96.9 fL (80-100); MEAN PLATELET VOLUME 8.1 fL (7.4-10.4); PLATELET COUNT 214 K/uL (130-400); RED BLOOD COUNT 2.93 M/uL (4.2-5.4); WHITE BLOOD COUNT 5.79 K/uL (4.8-10.8)
[2017-08-28] MEDS: INSULIN ASPART 100 UNITS/ML 3 ML PEN SC SCH ×4 (07:00→20:18)
[2017-08-28 07:26] LABS: BUN/CREATININE RATIO 4.7 (10-20); CREATININE 5.64 mg/dl (0.60-1.20); POTASSIUM 3.6 mmol/L (3.5-5.1)
--- NOTE | 2017-08-28 09:25 | Surgery Progress Note ---
Surgery Progress Note Date of Service Aug 28, 2017. Subjective Patient examined at bedside this morning. Afebrile, vitals stable on room air overnight, no acute events. Tolerating clear liquids without N/V - although states after broth and tea this morning she had a slight increase in the RLQ discomfort. Overall, no change from yesterday. Has not had a BM since admission. Ambulating without difficulty. Planned for hemodialysis this afternoon. Objective Vital Signs: Date Time Temp Pulse Resp B/P (MAP) Pulse Ox O2 Delivery O2 Flow Rate FiO2 08/28/17 08:25 36.8 70 16 149/61 (90) 98 08/28/17 08:00 Room Air 08/28/17 06:31 71 172/66 08/28/17 04:09 36.8 71 17 172/66 (101) 95 Room Air 08/28/17 04:00 Room Air 08/28/17 00:04 67 173/74 08/27/17 23:28 97 Room Air 08/27/17 23:15 37.0 67 18 173/74 (107) 97 Room Air 08/27/17 20:00 Room Air 08/27/17 19:56 36.9 69 18 178/68 (104) 97 Room Air 08/27/17 18:24 70 161/67 (98) 08/27/17 18:21 70 160/68 08/27/17 16:14 36.5 70 18 160/68 (98) 97 Room Air 08/27/17 16:00 97 Room Air 08/27/17 14:13 98 Room Air 08/27/17 12:42 76 146/61 08/27/17 12:00 Room Air 08/27/17 11:02 36.9 76 146/61 (89) 98 Room Air General Appearance: WD/WN, no apparent distress Head: normocephalic Neck: supple Respiratory/Chest: lungs clear, normal breath sounds Cardiovascular: regular rate, rhythm Abdomen: normal bowel sounds, non distended, soft (no rebound / guarding), + tenderness (point tenderness to palpation in RLQ; otherwise non tender to palpation) Extremities: normal range of motion Laboratory Results: Results Past 24 Hours Test 08/27/17 11:24 08/27/17 15:42 08/27/17 20:23 08/28/17 06:11 Range/Units Bedside Glucose 121 255 226 70-90 mg/dl White Blood Count 5.79 4.8-10.8 K/uL Red Blood Count 2.93 4.2-5.4 M/uL Hemoglobin 8.8 12.0-16.0 g/dL Hematocrit 28.4 37-47 % Mean Corpuscular Volume 96.9 80-100 fL Mean Corpuscular Hemoglobin 30.0 25-34 pg Mean Corpuscular Hemoglobin Concent 31.0 32-36 g/dl RDW Standard Deviation 51.1 36.4-46.3 fL RDW Coefficient of Variation 14.4 11.5-14.5 % Platelet Count 214 130-400 K/uL Mean Platelet Volume 8.1 7.4-10.4 fL Sodium Level 140 136-145 mmol/L Potassium Level 3.6 3.5-5.1 mmol/L Chloride Level 105 98-107 mmol/L Carbon Dioxide Level 24 21-32 mmol/L Anion Gap 11.0 3-11 mmol/L Blood Urea Nitrogen 27 7-18 mg/dl Creatinine 5.64 0.60-1.20 mg/dl Est Creatinine Clear Calc Drug Dose 7.5 ml/min Estimated GFR () 8.3 Estimated GFR (Non- 7.1 BUN/Creatinine Ratio 4.7 10-20 Random Glucose 84 70-99 mg/dl Calcium Level 8.0 8.5-10.1 mg/dl Microbiology Results 08/27/17 C.difficile Toxin B Gene (PCR) - Final, Complete No C. difficile toxin B gene detected Assessment & Plan Frieda Turner is a 67 year old woman admitted with ruptured appendicitis and adjacent abscess formation. She remains afebrile and vitals stable. No leukocytosis this morning, continues on antibiotics. Abdominal exam unchanged from yesterday - continues to have point tenderness in RLQ, but otherwise no tenderness to palpation and no rebound / guarding. -Pain control as needed -Clear liquid diet as tolerated -IVF hydration -Continue antibiotics - cipro / flagyl -Continue current medical management, planned for dialysis this afternoon -Encourage ambulation -Continue SCDs -Trend labs Carol Perez MD 08/28/17
[2017-08-28] MEDS: INSULIN GLARGINE SOLOSTAR 100 UNITS/ML 3 ML PEN SC SCH (09:35)
--- NOTE | 2017-08-28 09:48 | Nephrology Progress Note ---
Nephrology Progress Note Date of Service Aug 28, 2017. Chief Complaint ESRD on HD Subjective No acute events overnight. Mild pain persists. Tolerating liquid diet. No nausea. No fevers or chills. No bowel movement. Denies shortness of breath. Review of Systems A complete review of systems was performed. Pertinent positives are noted above. All other systems are negative. Vital Signs Last 8 Hrs Date Time Temp Pulse Resp B/P (MAP) Pulse Ox O2 Delivery O2 Flow Rate FiO2 08/28/17 08:25 36.8 70 16 149/61 (90) 98 08/28/17 08:00 Room Air 08/28/17 06:31 71 172/66 08/28/17 04:09 36.8 71 17 172/66 (101) 95 Room Air 08/28/17 04:00 Room Air Last Recorded Weight Weight (Kilograms): 50.000 Physical Exam General Appearance: no apparent distress, + thin Head: normocephalic, atraumatic Eyes: normal inspection, sclerae normal ENT: normal ENT inspection, pharynx normal Neck: supple, no JVD Respiratory/Chest: lungs clear, no respiratory distress, no accessory muscle use Cardiovascular: regular rate, rhythm, no gallop Abdomen/GI: soft, + tenderness (mild right lower quadrant) Extremities/Musculoskelatal: normal inspection, no pedal edema, + pertinent finding (LUE AVF with thrill and bruit) Neurologic/Psych: alert, normal mood/affect Family History No pertinent family history Social History Marital Status: 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 Laboratory Results Past 24 Hours 08/28/17 06:11 08/28/17 06:11 Test 08/27/17 11:24 08/27/17 15:42 08/27/17 20:23 08/28/17 06:11 Bedside Glucose 121 mg/dl (70-90) 255 mg/dl (70-90) 226 mg/dl (70-90) Red Blood Count 2.93 M/uL (4.2-5.4) Mean Corpuscular Volume 96.9 fL (80-100) Mean Corpuscular Hemoglobin 30.0 pg (25-34) Mean Corpuscular Hemoglobin Concent 31.0 g/dl (32-36) RDW Standard Deviation 51.1 fL (36.4-46.3) RDW Coefficient of Variation 14.4 % (11.5-14.5) Mean Platelet Volume 8.1 fL (7.4-10.4) Anion Gap 11.0 mmol/L (3-11) Est Creatinine Clear Calc Drug Dose 7.5 ml/min Estimated GFR () 8.3 Estimated GFR (Non- 7.1 BUN/Creatinine Ratio 4.7 (10-20) Calcium Level 8.0 mg/dl (8.5-10.1) Date/Time Source Procedure Growth Status 08/27/17 11:00 Stool C.difficile Toxin B Gene (PCR) - Final No C. difficile toxin B gene detected Complete Allergies Coded Allergies: Adhesives (Verified Allergy, Intermediate, RASH, 08/25/17) Amoxicillin (Verified Allergy, Intermediate, RASH, 08/25/17) Ampicillin (Verified Allergy, Intermediate, RASH, 08/25/17) Erythromycin (Verified Allergy, Intermediate, RASH, 08/25/17) Etodolac (Verified Allergy, Intermediate, RASH, 08/25/17) Penicillins (Verified Allergy, Intermediate, RASH, 08/25/17) Sulfa Antibiotics (Verified Allergy, Intermediate, RASH, 08/25/17) Aspirin (Verified Allergy, Mild, RASH, 08/25/17) Sevelamer (Verified Allergy, Mild, rash, 08/25/17) Medications Current Inpatient Medications Medications (Trade) Dose Ordered Sig/Eduardo Route Start Time Stop Time Status Last Admin Dose Admin Ioversol (Optiray 320) 116 ml UD PRN IV 08/25/17 20:30 08/29/17 20:29 Glucose (Glucose 40% Gel) 15-30 GRAMS 15 GRAMS... UD PRN PO 08/25/17 22:45 09/24/17 22:44 Glucose (Glucose Chew Tab) 4-8 Tablets 4 Tabl... UD PRN PO 08/25/17 22:45 09/24/17 22:44 Dextrose (Dextrose 50% 50ML Syringe) 25-50ML OF 50% DW IV FOR... UD PRN IV 08/25/17 22:45 09/24/17 22:44 08/26/17 07:21 25 ML Glucagon (Glucagon Inj) 1 mg UD PRN SQ 08/25/17 22:45 09/24/17 22:44 Morphine Sulfate (MoRPHine SULFATE INJ) 2 mg Q1H PRN IV 08/25/17 22:45 09/08/17 22:44 08/28/17 00:17 2 MG Metoprolol Tartrate (Lopressor Iv) 2.5 mg Q6H IV. 08/26/17 06:00 09/25/17 05:59 08/28/17 06:31 2.5 MG Insulin Glargine (Lantus Solostar Pen) 3 units DAILY SC 08/26/17 09:00 09/25/17 08:59 08/28/17 09:35 3 UNITS Hydralazine HCl (HydrALAZINE INJ) 2.5 mg Q6H IV. 08/26/17 12:00 09/25/17 08:59 08/28/17 06:32 2.5 MG Ceftriaxone Sodium 1 gm/ Dextrose 50 ml @ 120 mls/hr DAILY@1300 IV 08/26/17 13:00 09/05/17 12:59 08/27/17 13:34 120 MLS/HR Metronidazole 500 mg/Prmx 100 ml @ 100 mls/hr Q8H IV 08/27/17 12:00 09/06/17 11:59 08/28/17 04:29 100 MLS/HR Promethazine HCl 12.5 mg/Sodium Chloride 50.5 ml @ 204 mls/hr Q6H PRN IV 08/27/17 12:00 09/26/17 11:59 Insulin Aspart (novoLOG ASPART) SLIDING SCALE If C... ACHS SC 08/27/17 21:00 09/25/17 11:59 08/27/17 21:47 1 UNITS Impression (1) ESRD (end stage renal disease) on dialysis (2) Hyperparathyroidism due to ESRD on dialysis (3) Benign hypertension with ESRD (end-stage renal disease) (4) Acute appendicitis with rupture Frieda Turner is a 67 year-old female with DM, HTN, jRA, ESRD on HD. She was admitted with ruptured appendicitis. She is afebrile. WBC normal. No signs of systemic infection. She is being managed conservatively with Cipro and Flagyl. Progressive anemia noted. No signs of bleeding otherwise. HD today per MWF scheduled. Orders entered into chart and discussed with dialysis nurse. Recommendations -- Plan HD today, 3 K 3.5 hrs -- 3 L UF goal -- Epogen 10588 IU today -- Repeat CBC tomorrow -- CBC Q MWF -- Hold PO4 binders while taking liquid diet -- Document I/O's and AM weight -- Check metabolic profile daily while inpatient -- Medications appropriately dosed for renal function
[2017-08-28] MEDS ORDERED: EPOETIN ALFA 20,000 UNITS/ML VIAL IV ONE (11:00)
--- NOTE | 2017-08-28 11:21 | Progress Note ---
Internal Med Progress Note Date of Service: Aug 28, 2017. Provider Documentation: SUBJECTIVE: Seen and examined at bedside RLQ abd pain slightly increased with diet today Small BM overnight Denies Nausea, dizziness, chest pain, SOB No other complaints Family at bedside Planned for HD today OBJECTIVE: Vital Signs-as noted below Physical Exam: General Appearance:Moderately built and nourished, no apparent distress Head: normocephalic, Atraumatic Eyes: normal inspection, EOMI, PERRL Neck: supple, Trachea midline Respiratory/Chest: Normal breath sounds, CTA Cardiovascular: S1, S2, No murmur Abdomen/GI:Soft, RLQ tender, Bowel sounds present Extremities/Musculoskelatal:normal inspection, no edema Neurologic/Psych:AAOX3, grossly no focal neurological deficits Skin: normal color, warm Lab data as noted below. ASSESSMENT & PLAN: Ruptured appendicitis with abscess formation No signs of sepsis. CT ABD as below Continue IV Cipro and Flagyl Management as per Surgery Pain control Clear liquid diet as tolerated Encourage ambulation Hypertension: slightly elevated secondary to pain and missed nighttime meds on presentation Continue home meds monitor Prolonged QTC: Avoid QTC prolonging meds repeat EKG: QTC normalized DM1. Patient w/ hypoglycemic episodes at the ER secondary to poor p.o. intake Basal insulin adjusted for n.p.o. state, ISS BG goal 140-180. hemoglobin A1c.-7.4 SSI and check BS Q6H ESRD on HD Nephrology consult regarding dialysis management. on MWF HD Chronic anemia secondary to ESRD Hb at baseline monitor Juvenile rheumatoid arthritis as per records. No acute symptoms DVT px: SCDs for now. Will consider pharmacologic anticoagulation with heparin Sq once bleeding risk is deemed to be minimal and negligible. Disposition: Per Primary team PROCEDURES: CT ABD: 1. Again seen is a large inflammatory process centered around the base of the cecum. The appendix is not identified. There is phlegmonous change in this region with a serpiginous fluid collection typical in appearance for abscess. The appearance is highly concerning for perforated appendicitis. 2. No intraperitoneal free air is seen. 3. There is wall thickening involving the base of the cecum and an adjacent loop of the distal/terminal ileum, likely on a reactive basis. 4. There are mildly enlarged mesenteric and retroperitoneal lymph nodes. 5. Cholelithiasis. 6. The pancreas is atrophic with evidence of chronic pancreatitis. The pancreatic duct is dilated and there is a large obstructing stone present within the main pancreatic duct. Consider nonemergent GI follow-up. 7. Bilateral nonobstructing renal calculi. 8. Moderate fecal retention is noted in the right colon. There is no bowel obstruction. 9. Trace pleural effusions. 10. Mild bladder wall thickening suggested. Correlation with urinalysis will be required. 11. Additional findings as above. Vital Signs: Date Time Temp Pulse Resp B/P (MAP) Pulse Ox O2 Delivery O2 Flow Rate FiO2 08/28/17 08:25 36.8 70 16 149/61 (90) 98 08/28/17 08:00 Room Air 08/28/17 06:31 71 172/66 08/28/17 04:09 36.8 71 17 172/66 (101) 95 Room Air 08/28/17 04:00 Room Air 08/28/17 00:04 67 173/74 08/27/17 23:28 97 Room Air 08/27/17 23:15 37.0 67 18 173/74 (107) 97 Room Air 08/27/17 20:00 Room Air 08/27/17 19:56 36.9 69 18 178/68 (104) 97 Room Air 08/27/17 18:24 70 161/67 (98) 08/27/17 18:21 70 160/68 08/27/17 16:14 36.5 70 18 160/68 (98) 97 Room Air 08/27/17 16:00 97 Room Air 08/27/17 14:13 98 Room Air 08/27/17 12:42 76 146/61 08/27/17 12:00 Room Air Lab Results: Results Past 24 Hours Test 08/27/17 11:24 08/27/17 15:42 08/27/17 20:23 08/28/17 06:11 Range/Units Bedside Glucose 121 255 226 70-90 mg/dl White Blood Count 5.79 4.8-10.8 K/uL Red Blood Count 2.93 4.2-5.4 M/uL Hemoglobin 8.8 12.0-16.0 g/dL Hematocrit 28.4 37-47 % Mean Corpuscular Volume 96.9 80-100 fL Mean Corpuscular Hemoglobin 30.0 25-34 pg Mean Corpuscular Hemoglobin Concent 31.0 32-36 g/dl RDW Standard Deviation 51.1 36.4-46.3 fL RDW Coefficient of Variation 14.4 11.5-14.5 % Platelet Count 214 130-400 K/uL Mean Platelet Volume 8.1 7.4-10.4 fL Sodium Level 140 136-145 mmol/L Potassium Level 3.6 3.5-5.1 mmol/L Chloride Level 105 98-107 mmol/L Carbon Dioxide Level 24 21-32 mmol/L Anion Gap 11.0 3-11 mmol/L Blood Urea Nitrogen 27 7-18 mg/dl Creatinine 5.64 0.60-1.20 mg/dl Est Creatinine Clear Calc Drug Dose 7.5 ml/min Estimated GFR () 8.3 Estimated GFR (Non- 7.1 BUN/Creatinine Ratio 4.7 10-20 Random Glucose 84 70-99 mg/dl Calcium Level 8.0 8.5-10.1 mg/dl
[2017-08-28] MEDS: CEFTRIAXONE SOD INJ 1 GM in DEXTROSE 5% ADD-VANTAGE 50ML 50 ML IV SCH (19:03)
[2017-08-28] MEDS: METOPROLOL TARTRATE 100 MG TAB PO SCH (20:18)
[2017-08-29] VITALS (10 sets, daily range): BP systolic 144–197; BP diastolic 55–78; PULSE 56–98; TEMP 36.7–37.5; O2SAT 96–98
[2017-08-29] MEDS: METRONIDAZOLE / NSS 500 MG in PREMIXED NSS 100 ML IV SCH ×3 (04:22→20:02)
[2017-08-29 06:16] LABS: HEMATOCRIT 29.7 % (37-47); MEAN CELL VOLUME 98.3 fL (80-100); MEAN CORPUSCULAR HEMOGLOBIN 30.8 pg (25-34); MEAN CORPUSCULAR HGB CONC 31.3 g/dl (32-36); MEAN PLATELET VOLUME 8.5 fL (7.4-10.4); PLATELET COUNT 237 K/uL (130-400); RED BLOOD COUNT 3.02 M/uL (4.2-5.4); WHITE BLOOD COUNT 5.04 K/uL (4.8-10.8)
[2017-08-29 06:51] LABS: BUN/CREATININE RATIO 2.7 (10-20); CALCIUM 7.9 mg/dl (8.5-10.1); CREATININE 3.62 mg/dl (0.60-1.20); PHOSPHORUS 3.5 mg/dl (2.5-4.9); POTASSIUM 3.5 mmol/L (3.5-5.1)
--- NOTE | 2017-08-29 07:31 | Surgery Progress Note ---
Surgery Progress Note Date of Service Aug 29, 2017. Subjective + bowel movement, + flatus, No nausea, No vomiting Feels better Less pain Objective Vital Signs: Date Time Temp Pulse Resp B/P (MAP) Pulse Ox O2 Delivery O2 Flow Rate FiO2 08/29/17 04:00 Room Air 08/29/17 03:41 36.7 63 18 169/75 (106) 97 Room Air 08/29/17 00:01 37.5 64 18 161/70 (100) 97 Room Air 08/29/17 00:00 Room Air 08/28/17 20:04 36.5 114 18 139/90 (106) 95 Room Air 08/28/17 20:00 95 Room Air 08/28/17 17:25 36.7 69 158/69 (98) 08/28/17 17:15 67 136/65 08/28/17 17:00 66 148/69 08/28/17 16:45 67 158/79 08/28/17 16:30 68 156/69 08/28/17 16:15 69 175/75 08/28/17 16:00 63 180/77 08/28/17 15:45 67 163/76 08/28/17 15:30 61 170/69 08/28/17 15:15 62 169/74 08/28/17 15:00 62 165/70 08/28/17 14:45 63 173/75 08/28/17 14:30 61 169/73 08/28/17 14:15 62 175/76 08/28/17 14:00 69 173/76 08/28/17 13:50 36.8 68 176/76 (109) 08/28/17 12:03 36.9 82 18 148/73 (98) 95 08/28/17 12:00 Room Air 08/28/17 08:25 36.8 70 16 149/61 (90) 98 08/28/17 08:00 Room Air Abdomen: non distended, soft, + tenderness (Less today) Laboratory Results: Results Past 24 Hours Test 08/28/17 11:17 08/28/17 18:05 08/28/17 20:14 08/29/17 03:13 Range/Units Bedside Glucose 131 75 247 125 70-90 mg/dl Test 08/29/17 05:39 Range/Units White Blood Count 5.04 4.8-10.8 K/uL Red Blood Count 3.02 4.2-5.4 M/uL Hemoglobin 9.3 12.0-16.0 g/dL Hematocrit 29.7 37-47 % Mean Corpuscular Volume 98.3 80-100 fL Mean Corpuscular Hemoglobin 30.8 25-34 pg Mean Corpuscular Hemoglobin Concent 31.3 32-36 g/dl RDW Standard Deviation 52.8 36.4-46.3 fL RDW Coefficient of Variation 14.7 11.5-14.5 % Platelet Count 237 130-400 K/uL Mean Platelet Volume 8.5 7.4-10.4 fL Sodium Level 138 136-145 mmol/L Potassium Level 3.5 3.5-5.1 mmol/L Chloride Level 105 98-107 mmol/L Carbon Dioxide Level 25 21-32 mmol/L Anion Gap 8.0 3-11 mmol/L Blood Urea Nitrogen 10 7-18 mg/dl Creatinine 3.62 0.60-1.20 mg/dl Est Creatinine Clear Calc Drug Dose 11.5 ml/min Estimated GFR () 14.2 Estimated GFR (Non- 12.2 BUN/Creatinine Ratio 2.7 10-20 Random Glucose 109 70-99 mg/dl Calcium Level 7.9 8.5-10.1 mg/dl Phosphorus Level 3.5 2.5-4.9 mg/dl Albumin 2.3 3.4-5.0 gm/dl Assessment & Plan Appendicitis with perforation Stable Improved exam Continue conservative management Continue IV antibiotics Try full liquids DM, CRF and HTN management as per internal medicine
[2017-08-29] MEDS: METOPROLOL TARTRATE 100 MG TAB PO SCH ×2 (09:14→21:48)
[2017-08-29] MEDS: INSULIN ASPART 100 UNITS/ML 3 ML PEN SC SCH ×4 (09:21→21:47)
[2017-08-29] MEDS: INSULIN GLARGINE SOLOSTAR 100 UNITS/ML 3 ML PEN SC SCH (09:24)
--- NOTE | 2017-08-29 09:55 | Nephrology Progress Note ---
Nephrology Progress Note Date of Service Aug 29, 2017. Chief Complaint ESRD on HD Subjective No acute events overnight. Frieda feels well this morning. Tolerated HD yesterday, UF 2.8 kg. Diet advanced to full liquids. Abdominal pain improving. No fevers or chills. No shortness of breath. Review of Systems A complete review of systems was performed. Pertinent positives are noted above. All other systems are negative. Vital Signs Last 8 Hrs Date Time Temp Pulse Resp B/P (MAP) Pulse Ox O2 Delivery O2 Flow Rate FiO2 08/29/17 08:09 37.0 98 16 197/71 (113) 97 08/29/17 04:00 Room Air 08/29/17 03:41 36.7 63 18 169/75 (106) 97 Room Air Last Recorded Weight Weight (Kilograms): 49.000 Physical Exam General Appearance: no apparent distress, + thin Head: normocephalic, atraumatic Eyes: normal inspection, sclerae normal ENT: normal ENT inspection, pharynx normal Neck: supple, no JVD Respiratory/Chest: lungs clear, no respiratory distress, no accessory muscle use Cardiovascular: regular rate, rhythm, no murmur Abdomen/GI: soft, + tenderness (minimal right lower quadrant) Extremities/Musculoskelatal: normal inspection, no pedal edema, + pertinent finding (AVF with thrill and bruit) Neurologic/Psych: alert, normal mood/affect Family History No pertinent family history Social History Marital Status: 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 Laboratory Results Past 24 Hours 08/29/17 05:39 08/29/17 05:39 Test 08/28/17 11:17 08/28/17 18:05 08/28/17 20:14 08/29/17 03:13 Bedside Glucose 131 mg/dl (70-90) 75 mg/dl (70-90) 247 mg/dl (70-90) 125 mg/dl (70-90) Test 08/29/17 05:39 Red Blood Count 3.02 M/uL (4.2-5.4) Mean Corpuscular Volume 98.3 fL (80-100) Mean Corpuscular Hemoglobin 30.8 pg (25-34) Mean Corpuscular Hemoglobin Concent 31.3 g/dl (32-36) RDW Standard Deviation 52.8 fL (36.4-46.3) RDW Coefficient of Variation 14.7 % (11.5-14.5) Mean Platelet Volume 8.5 fL (7.4-10.4) Anion Gap 8.0 mmol/L (3-11) Est Creatinine Clear Calc Drug Dose 11.5 ml/min Estimated GFR () 14.2 Estimated GFR (Non- 12.2 BUN/Creatinine Ratio 2.7 (10-20) Calcium Level 7.9 mg/dl (8.5-10.1) Phosphorus Level 3.5 mg/dl (2.5-4.9) Albumin 2.3 gm/dl (3.4-5.0) Allergies Coded Allergies: Adhesives (Verified Allergy, Intermediate, RASH, 08/25/17) Amoxicillin (Verified Allergy, Intermediate, RASH, 08/25/17) Ampicillin (Verified Allergy, Intermediate, RASH, 08/25/17) Erythromycin (Verified Allergy, Intermediate, RASH, 08/25/17) Etodolac (Verified Allergy, Intermediate, RASH, 08/25/17) Penicillins (Verified Allergy, Intermediate, RASH, 08/25/17) Sulfa Antibiotics (Verified Allergy, Intermediate, RASH, 08/25/17) Aspirin (Verified Allergy, Mild, RASH, 08/25/17) Sevelamer (Verified Allergy, Mild, rash, 08/25/17) Medications Current Inpatient Medications Medications (Trade) Dose Ordered Sig/Eduardo Route Start Time Stop Time Status Last Admin Dose Admin Ioversol (Optiray 320) 116 ml UD PRN IV 08/25/17 20:30 08/29/17 20:29 Glucose (Glucose 40% Gel) 15-30 GRAMS 15 GRAMS... UD PRN PO 08/25/17 22:45 09/24/17 22:44 Glucose (Glucose Chew Tab) 4-8 Tablets 4 Tabl... UD PRN PO 08/25/17 22:45 09/24/17 22:44 Dextrose (Dextrose 50% 50ML Syringe) 25-50ML OF 50% DW IV FOR... UD PRN IV 08/25/17 22:45 09/24/17 22:44 08/26/17 07:21 25 ML Glucagon (Glucagon Inj) 1 mg UD PRN SQ 08/25/17 22:45 09/24/17 22:44 Morphine Sulfate (MoRPHine SULFATE INJ) 2 mg Q1H PRN IV 08/25/17 22:45 09/08/17 22:44 08/28/17 00:17 2 MG Insulin Glargine (Lantus Solostar Pen) 3 units DAILY SC 08/26/17 09:00 09/25/17 08:59 08/29/17 09:24 3 UNITS Ceftriaxone Sodium 1 gm/ Dextrose 50 ml @ 120 mls/hr DAILY@1300 IV 08/26/17 13:00 09/05/17 12:59 08/28/17 19:03 120 MLS/HR Metronidazole 500 mg/Prmx 100 ml @ 100 mls/hr Q8H IV 08/27/17 12:00 09/06/17 11:59 08/29/17 04:22 100 MLS/HR Promethazine HCl 12.5 mg/Sodium Chloride 50.5 ml @ 204 mls/hr Q6H PRN IV 08/27/17 12:00 09/26/17 11:59 Insulin Aspart (novoLOG ASPART) SLIDING SCALE If C... ACHS SC 08/27/17 21:00 09/25/17 11:59 08/28/17 20:18 1 UNITS Hydralazine HCl (Apresoline Tab) 25 mg BID PO 08/28/17 21:00 09/27/17 20:59 08/29/17 09:14 25 MG Metoprolol Tartrate (Lopressor Tab) 100 mg BID PO 08/28/17 21:00 09/27/17 20:59 08/29/17 09:14 100 MG Impression (1) ESRD (end stage renal disease) on dialysis (2) Hyperparathyroidism due to ESRD on dialysis (3) Benign hypertension with ESRD (end-stage renal disease) (4) Acute appendicitis with rupture Frieda Turner is a 67 year-old female with DM, HTN, jRA, ESRD on HD. She was admitted with ruptured appendicitis. She remains afebrile. WBC normal. No signs of systemic infection. She is being managed conservatively with IV Cipro and Flagyl. Progressive anemia noted. No signs of bleeding otherwise. HD MWF. LUE AVF. Tolerated dialysis yesterday without complications. Recommendations -- HD MWF -- Volume status acceptable -- Increase hydralazine PRN for hypertension -- Epogen 54358 IU with HD yesterday -- CBC, metabolic profile Q MWF -- Hold PO4 binders while taking liquid diet -- Document I/O's and AM weight -- Medications appropriately dosed for renal function
[2017-08-29] MEDS: MoRPHine SULFATE 2 MG/ML CARP IV PRN ×2 (10:51→21:48)
--- NOTE | 2017-08-29 12:12 | Progress Note ---
Internal Med Progress Note Date of Service: Aug 29, 2017. Provider Documentation: SUBJECTIVE: Seen and examined at bedside RLQ abd pain better Had BM Denies Nausea, dizziness, chest pain, SOB Tolerating diet HTN high but asymptomatic No other complaints Family at bedside OBJECTIVE: Vital Signs-as noted below Physical Exam: General Appearance:Moderately built and nourished, no apparent distress Head: normocephalic, Atraumatic Eyes: normal inspection, EOMI, PERRL Neck: supple, Trachea midline Respiratory/Chest: Normal breath sounds, CTA Cardiovascular: S1, S2, No murmur Abdomen/GI:Soft, RLQ mild tender, Bowel sounds present Extremities/Musculoskelatal:normal inspection, no edema Neurologic/Psych:AAOX3, grossly no focal neurological deficits Skin: normal color, warm Lab data as noted below. ASSESSMENT & PLAN: Ruptured appendicitis with abscess formation No signs of sepsis. CT ABD as below Continue IV Cipro and Flagyl Management as per Surgery Pain control Advance diet as tolerated Encourage ambulation Hypertension: slightly elevated secondary to pain and missed nighttime meds on presentation Will resume lisinopril Continue home meds Hydralazine IV PRN monitor Prolonged QTC: Avoid QTC prolonging meds repeat EKG: QTC normalized DM1. Patient w/ hypoglycemic episodes at the ER secondary to poor p.o. intake Basal insulin adjusted for n.p.o. state, ISS BG goal 140-180. hemoglobin A1c.-7.4 SSI and check BS Q6H ESRD on HD Nephrology consult regarding dialysis management. on MWF HD Chronic anemia secondary to ESRD Hb at baseline monitor Juvenile rheumatoid arthritis as per records. No acute symptoms DVT px: SCDs for now. Disposition: Per Primary team PROCEDURES: CT ABD: 1. Again seen is a large inflammatory process centered around the base of the cecum. The appendix is not identified. There is phlegmonous change in this region with a serpiginous fluid collection typical in appearance for abscess. The appearance is highly concerning for perforated appendicitis. 2. No intraperitoneal free air is seen. 3. There is wall thickening involving the base of the cecum and an adjacent loop of the distal/terminal ileum, likely on a reactive basis. 4. There are mildly enlarged mesenteric and retroperitoneal lymph nodes. 5. Cholelithiasis. 6. The pancreas is atrophic with evidence of chronic pancreatitis. The pancreatic duct is dilated and there is a large obstructing stone present within the main pancreatic duct. Consider nonemergent GI follow-up. 7. Bilateral nonobstructing renal calculi. 8. Moderate fecal retention is noted in the right colon. There is no bowel obstruction. 9. Trace pleural effusions. 10. Mild bladder wall thickening suggested. Correlation with urinalysis will be required. 11. Additional findings as above. Vital Signs: Date Time Temp Pulse Resp B/P (MAP) Pulse Ox O2 Delivery O2 Flow Rate FiO2 08/29/17 11:29 36.8 60 20 173/78 (109) 96 Room Air 08/29/17 08:09 37.0 98 16 197/71 (113) 97 08/29/17 04:00 Room Air 08/29/17 03:41 36.7 63 18 169/75 (106) 97 Room Air 08/29/17 00:01 37.5 64 18 161/70 (100) 97 Room Air 08/29/17 00:00 Room Air 08/28/17 20:04 36.5 114 18 139/90 (106) 95 Room Air 08/28/17 20:00 95 Room Air 08/28/17 17:25 36.7 69 158/69 (98) 08/28/17 17:15 67 136/65 08/28/17 17:00 66 148/69 08/28/17 16:45 67 158/79 08/28/17 16:30 68 156/69 08/28/17 16:15 69 175/75 08/28/17 16:00 63 180/77 08/28/17 15:45 67 163/76 08/28/17 15:30 61 170/69 08/28/17 15:15 62 169/74 08/28/17 15:00 62 165/70 08/28/17 14:45 63 173/75 08/28/17 14:30 61 169/73 08/28/17 14:15 62 175/76 08/28/17 14:00 69 173/76 08/28/17 13:50 36.8 68 176/76 (109) Lab Results: Results Past 24 Hours Test 08/28/17 18:05 08/28/17 20:14 08/29/17 03:13 08/29/17 05:39 Range/Units Bedside Glucose 75 247 125 70-90 mg/dl White Blood Count 5.04 4.8-10.8 K/uL Red Blood Count 3.02 4.2-5.4 M/uL Hemoglobin 9.3 12.0-16.0 g/dL Hematocrit 29.7 37-47 % Mean Corpuscular Volume 98.3 80-100 fL Mean Corpuscular Hemoglobin 30.8 25-34 pg Mean Corpuscular Hemoglobin Concent 31.3 32-36 g/dl RDW Standard Deviation 52.8 36.4-46.3 fL RDW Coefficient of Variation 14.7 11.5-14.5 % Platelet Count 237 130-400 K/uL Mean Platelet Volume 8.5 7.4-10.4 fL Sodium Level 138 136-145 mmol/L Potassium Level 3.5 3.5-5.1 mmol/L Chloride Level 105 98-107 mmol/L Carbon Dioxide Level 25 21-32 mmol/L Anion Gap 8.0 3-11 mmol/L Blood Urea Nitrogen 10 7-18 mg/dl Creatinine 3.62 0.60-1.20 mg/dl Est Creatinine Clear Calc Drug Dose 11.5 ml/min Estimated GFR () 14.2 Estimated GFR (Non- 12.2 BUN/Creatinine Ratio 2.7 10-20 Random Glucose 109 70-99 mg/dl Calcium Level 7.9 8.5-10.1 mg/dl Phosphorus Level 3.5 2.5-4.9 mg/dl Albumin 2.3 3.4-5.0 gm/dl Test 08/29/17 10:48 Range/Units Bedside Glucose 250 70-90 mg/dl
[2017-08-29] MEDS ORDERED: LISINOPRIL 20 MG TAB PO SCH (12:45)
[2017-08-29] MEDS: CEFTRIAXONE SOD INJ 1 GM in DEXTROSE 5% ADD-VANTAGE 50ML 50 ML IV SCH (14:04)
[2017-08-29] MEDS: ONDANSETRON INJ 2 MG/ML 2 ML VIAL IV PRN (14:48)
[2017-08-30] VITALS (23 sets, daily range): BP systolic 120–202; BP diastolic 53–99; PULSE 54–69; TEMP 36.7–37.2; O2SAT 97–99
[2017-08-30] MEDS: METRONIDAZOLE / NSS 500 MG in PREMIXED NSS 100 ML IV SCH ×3 (04:12→20:38)
[2017-08-30 06:56] LABS: MEAN CELL VOLUME 98.3 fL (80-100); MEAN CORPUSCULAR HEMOGLOBIN 30.8 pg (25-34); MEAN CORPUSCULAR HGB CONC 31.4 g/dl (32-36); MEAN PLATELET VOLUME 8.4 fL (7.4-10.4); PLATELET COUNT 273 K/uL (130-400); RED BLOOD COUNT 2.95 M/uL (4.2-5.4)
[2017-08-30 07:37] LABS: BUN/CREATININE RATIO 2.7 (10-20); CALCIUM 8.2 mg/dl (8.5-10.1); CREATININE 4.96 mg/dl (0.60-1.20); PHOSPHORUS 4.6 mg/dl (2.5-4.9); POTASSIUM 3.5 mmol/L (3.5-5.1)
[2017-08-30] MEDS: INSULIN ASPART 100 UNITS/ML 3 ML PEN SC SCH ×4 (08:26→20:41)
[2017-08-30] MEDS: INSULIN GLARGINE SOLOSTAR 100 UNITS/ML 3 ML PEN SC SCH (08:26)
--- NOTE | 2017-08-30 08:27 | Surgery Progress Note ---
Surgery Progress Note Date of Service Aug 30, 2017. Subjective Post OP Day: HD # 5 + feeling well still having right lower abdominal pain but improving daily no nausea or vomiting tolerating full liquids no bowel movement yesterday Objective Vital Signs: Date Time Temp Pulse Resp B/P (MAP) Pulse Ox O2 Delivery O2 Flow Rate FiO2 08/30/17 07:59 36.7 57 19 176/73 (107) 97 Room Air 08/30/17 04:05 37.0 58 16 157/63 (94) 98 Room Air 08/30/17 04:00 Room Air 08/30/17 00:00 Room Air 08/29/17 23:10 36.9 56 16 156/64 (94) 97 Room Air 08/29/17 20:00 98 Room Air 08/29/17 19:37 36.8 59 20 167/67 (100) 97 08/29/17 16:00 98 Room Air 08/29/17 15:24 36.9 59 20 154/78 (103) 98 Room Air 08/29/17 12:11 144/55 (84) 08/29/17 12:10 Room Air 08/29/17 11:29 36.8 60 20 173/78 (109) 96 Room Air 08/29/17 08:30 Room Air General Appearance: WD/WN, no apparent distress Neck: trachea midline Respiratory/Chest: no respiratory distress, no accessory muscle use Abdomen: non distended, soft, + tenderness (in the RLQ on deep palpation, vastly improved, no rigidity, guarding, rebound, or peritonitis) Laboratory Results: Results Past 24 Hours Test 08/29/17 10:48 08/29/17 15:57 08/29/17 21:38 08/30/17 06:11 Range/Units Bedside Glucose 250 119 164 70-90 mg/dl White Blood Count 5.30 4.8-10.8 K/uL Red Blood Count 2.95 4.2-5.4 M/uL Hemoglobin 9.1 12.0-16.0 g/dL Hematocrit 29.0 37-47 % Mean Corpuscular Volume 98.3 80-100 fL Mean Corpuscular Hemoglobin 30.8 25-34 pg Mean Corpuscular Hemoglobin Concent 31.4 32-36 g/dl RDW Standard Deviation 52.7 36.4-46.3 fL RDW Coefficient of Variation 14.7 11.5-14.5 % Platelet Count 273 130-400 K/uL Mean Platelet Volume 8.4 7.4-10.4 fL Sodium Level 138 136-145 mmol/L Potassium Level 3.5 3.5-5.1 mmol/L Chloride Level 105 98-107 mmol/L Carbon Dioxide Level 21 21-32 mmol/L Anion Gap 12.0 3-11 mmol/L Blood Urea Nitrogen 13 7-18 mg/dl Creatinine 4.96 0.60-1.20 mg/dl Est Creatinine Clear Calc Drug Dose 8.6 ml/min Estimated GFR () 9.7 Estimated GFR (Non- 8.3 BUN/Creatinine Ratio 2.7 10-20 Random Glucose 116 70-99 mg/dl Calcium Level 8.2 8.5-10.1 mg/dl Phosphorus Level 4.6 2.5-4.9 mg/dl Albumin 2.4 3.4-5.0 gm/dl Test 08/30/17 06:52 Range/Units Bedside Glucose 106 70-90 mg/dl Assessment & Plan 67 year-old female with ruptured appendicitis with abscess formation. She has been afebrile throughout her stay. No leukocytosis. Abdominal pain improved compared to admission with tenderness in the RLQ on deep palpation. No peritonitis or rigidity. Plan: Continue pain management as needed Continue IV Cipro and Flagyl until discharge (plan for Saturday) May advance diet as tolerated Continue current medical management Encourage ambulation Continue SCDs Plan for discharge on Saturday with PO Cipro/Flagyl for another [address] Ryan has seen and examined patient, agrees with above
[2017-08-30] MEDS: MoRPHine SULFATE 2 MG/ML CARP IV PRN (08:31)
[2017-08-30] MEDS ORDERED: METR500T PO (08:33)
[2017-08-30] MEDS ORDERED: OXYC-57 PO (08:33)
[2017-08-30] MEDS ORDERED: CIPR-255 PO (08:33)
--- NOTE | 2017-08-30 08:39 | Discharge Instructions ---
Discharge Instructions Date of Service Aug 30, 2017. Admission Reason for Admission: Acute Appendicitis With Rupture Discharge Discharge Diagnosis / Problem: same Discharge Goals Goal(s): Decrease discomfort, Improve function Activity Recommendations Activity Limitations: resume your previous activity Lifting Limitations: none Exercise/Sports Limitations: until after follow-up appointment Shower/Bathe: no limitations Driving or Machine Use: you should not be driving while you have abdominal pain or are taking narcotic pain medication . Instructions / Follow-Up Instructions / Follow-Up Please take oral antibiotics as prescribed for total of 7 days Take narcotic pain medication as prescribed Follow-up with Dr. Ryan in 1 week , please call office at [phone] to make an appointment Current Hospital Diet Patient's current hospital diet: Diabetes Type 1 Diet, Full Liquid Diet Discharge Diet Recommended Diet: Regular Diet Pending Studies Studies pending at discharge: no Laboratory Results Hemoglobin A1c Test 08/25/17 15:40 Range/Units Estimated Average Glucose 166 mg/dl Hemoglobin A1c 7.4 H 4.5-5.6 % Medical Emergencies . Who to Call and When: Medical Emergencies: If at any time you feel your situation is an emergency, please call 911 immediately. . Non-Emergent Contact Non-Emergency issues call your: Primary Care Provider, Surgeon Call Non-Emergent contact if: you have a fever, temperature is above 101.5, your pain is not controlled, your pain is worsening, your pain is unusual for you . "Provider Documentation" section prepared by Lynn Sparks. . VTE Core Measure Inpt VTE Proph given/why not?: SCD's [place] Drug Monitoring Program Search Results: patient reviewed within database, no issues identified
[2017-08-30] MEDS: METOPROLOL TARTRATE 100 MG TAB PO SCH ×3 (09:00→20:43)
[2017-08-30] MEDS: LISINOPRIL 20 MG TAB PO SCH ×2 (09:30→13:57)
--- NOTE | 2017-08-30 09:33 | Progress Note ---
Internal Med Progress Note Date of Service: Aug 30, 2017. Provider Documentation: SUBJECTIVE: Seen and examined at bedside while getting HD today RLQ abd pain improving Small BM today Denies Nausea, dizziness, chest pain, SOB Tolerating diet No other complaints OBJECTIVE: Vital Signs-as noted below Physical Exam: General Appearance:Moderately built and nourished, no apparent distress Head: normocephalic, Atraumatic Eyes: normal inspection, EOMI, PERRL Neck: supple, Trachea midline Respiratory/Chest: Normal breath sounds, CTA Cardiovascular: S1, S2, No murmur Abdomen/GI:Soft, RLQ mild tender, Bowel sounds present Extremities/Musculoskelatal:normal inspection, no edema Neurologic/Psych:AAOX3, grossly no focal neurological deficits Skin: normal color, warm Lab data as noted below. ASSESSMENT & PLAN: Ruptured appendicitis with abscess formation No signs of sepsis. CT ABD as below Continue IV Cipro and Flagyl, noted plan to be switched to PO upon discharge Management as per Surgery Pain control Advance diet as tolerated Encourage ambulation Hypertension: slightly elevated secondary to pain and missed nighttime meds on presentation Continue home meds: Hydralazine, BB, Lisinopril Hydralazine IV PRN monitor Prolonged QTC: Avoid QTC prolonging meds repeat EKG: QTC normalized DM1. Patient w/ hypoglycemic episodes at the ER secondary to poor p.o. intake Basal insulin adjusted for n.p.o. state, ISS BG goal 140-180. hemoglobin A1c.-7.4 SSI and check BS Q6H ESRD on HD Nephrology consult regarding dialysis management. on MWF HD Chronic anemia secondary to ESRD Hb at baseline monitor Juvenile rheumatoid arthritis as per records. No acute symptoms DVT px: SCDs for now. Disposition: Per Primary team PROCEDURES: CT ABD: 1. Again seen is a large inflammatory process centered around the base of the cecum. The appendix is not identified. There is phlegmonous change in this region with a serpiginous fluid collection typical in appearance for abscess. The appearance is highly concerning for perforated appendicitis. 2. No intraperitoneal free air is seen. 3. There is wall thickening involving the base of the cecum and an adjacent loop of the distal/terminal ileum, likely on a reactive basis. 4. There are mildly enlarged mesenteric and retroperitoneal lymph nodes. 5. Cholelithiasis. 6. The pancreas is atrophic with evidence of chronic pancreatitis. The pancreatic duct is dilated and there is a large obstructing stone present within the main pancreatic duct. Consider nonemergent GI follow-up. 7. Bilateral nonobstructing renal calculi. 8. Moderate fecal retention is noted in the right colon. There is no bowel obstruction. 9. Trace pleural effusions. 10. Mild bladder wall thickening suggested. Correlation with urinalysis will be required. 11. Additional findings as above. Vital Signs: Date Time Temp Pulse Resp B/P (MAP) Pulse Ox O2 Delivery O2 Flow Rate FiO2 08/30/17 07:59 36.7 57 19 176/73 (107) 97 Room Air 08/30/17 04:05 37.0 58 16 157/63 (94) 98 Room Air 08/30/17 04:00 Room Air 08/30/17 00:00 Room Air 08/29/17 23:10 36.9 56 16 156/64 (94) 97 Room Air 08/29/17 20:00 98 Room Air 08/29/17 19:37 36.8 59 20 167/67 (100) 97 08/29/17 16:00 98 Room Air 08/29/17 15:24 36.9 59 20 154/78 (103) 98 Room Air 08/29/17 12:11 144/55 (84) 08/29/17 12:10 Room Air 08/29/17 11:29 36.8 60 20 173/78 (109) 96 Room Air Lab Results: Results Past 24 Hours Test 08/29/17 10:48 08/29/17 15:57 08/29/17 21:38 08/30/17 06:11 Range/Units Bedside Glucose 250 119 164 70-90 mg/dl White Blood Count 5.30 4.8-10.8 K/uL Red Blood Count 2.95 4.2-5.4 M/uL Hemoglobin 9.1 12.0-16.0 g/dL Hematocrit 29.0 37-47 % Mean Corpuscular Volume 98.3 80-100 fL Mean Corpuscular Hemoglobin 30.8 25-34 pg Mean Corpuscular Hemoglobin Concent 31.4 32-36 g/dl RDW Standard Deviation 52.7 36.4-46.3 fL RDW Coefficient of Variation 14.7 11.5-14.5 % Platelet Count 273 130-400 K/uL Mean Platelet Volume 8.4 7.4-10.4 fL Sodium Level 138 136-145 mmol/L Potassium Level 3.5 3.5-5.1 mmol/L Chloride Level 105 98-107 mmol/L Carbon Dioxide Level 21 21-32 mmol/L Anion Gap 12.0 3-11 mmol/L Blood Urea Nitrogen 13 7-18 mg/dl Creatinine 4.96 0.60-1.20 mg/dl Est Creatinine Clear Calc Drug Dose 8.6 ml/min Estimated GFR () 9.7 Estimated GFR (Non- 8.3 BUN/Creatinine Ratio 2.7 10-20 Random Glucose 116 70-99 mg/dl Calcium Level 8.2 8.5-10.1 mg/dl Phosphorus Level 4.6 2.5-4.9 mg/dl Albumin 2.4 3.4-5.0 gm/dl Test 08/30/17 06:52 Range/Units Bedside Glucose 106 70-90 mg/dl
--- NOTE | 2017-08-30 11:06 | Nephrology Progress Note ---
Nephrology Progress Note Date of Service Aug 30, 2017. Chief Complaint Follow-up for end-stage renal disease on hemodialysis. Korey Malave was seen and examined in her room this morning. She has been overall feeling better, started on full liquid diet this morning tolerated well. Continues to have some incisional pain. Had bowel movement yesterday. Blood pressure running high, electrolyte acceptable. Denies any shortness of breath or chest pain. Review of Systems A complete review of systems was performed. Pertinent positives are noted above. All other systems are negative. Vital Signs Last 8 Hrs Date Time Temp Pulse Resp B/P (MAP) Pulse Ox O2 Delivery O2 Flow Rate FiO2 08/30/17 10:45 57 163/76 08/30/17 10:30 57 183/72 08/30/17 10:15 57 168/72 08/30/17 10:00 58 173/74 08/30/17 09:45 59 184/80 08/30/17 09:21 36.7 59 196/83 (120) 08/30/17 07:59 36.7 57 19 176/73 (107) 97 Room Air 08/30/17 04:05 37.0 58 16 157/63 (94) 98 Room Air 08/30/17 04:00 Room Air Last Recorded Weight Weight (Kilograms): 51.700 Physical Exam GENERAL: Middle-aged female, AAA x 3, pleasant, ill-appearing, not in any distress. NECK: Supple, no JVD. RESPIRATORY: Normal breathing efforts, no accessory muscle use, clear to auscultation bilaterally, no wheezes or rales. CARDIOVASCULAR: S1, S2 normal, rate rhythm regular. EXTREMITY: No lower extremity edema NEURO: speech fluent. PSYCHIATRY: Normal mood and judgment Family History No pertinent family history Social History Marital Status: 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 Laboratory Results Past 24 Hours 08/30/17 06:11 08/30/17 06:11 Test 08/29/17 15:57 08/29/17 21:38 08/30/17 06:11 08/30/17 06:52 Bedside Glucose 119 mg/dl (70-90) 164 mg/dl (70-90) 106 mg/dl (70-90) Red Blood Count 2.95 M/uL (4.2-5.4) Mean Corpuscular Volume 98.3 fL (80-100) Mean Corpuscular Hemoglobin 30.8 pg (25-34) Mean Corpuscular Hemoglobin Concent 31.4 g/dl (32-36) RDW Standard Deviation 52.7 fL (36.4-46.3) RDW Coefficient of Variation 14.7 % (11.5-14.5) Mean Platelet Volume 8.4 fL (7.4-10.4) Anion Gap 12.0 mmol/L (3-11) Est Creatinine Clear Calc Drug Dose 8.6 ml/min Estimated GFR () 9.7 Estimated GFR (Non- 8.3 BUN/Creatinine Ratio 2.7 (10-20) Calcium Level 8.2 mg/dl (8.5-10.1) Phosphorus Level 4.6 mg/dl (2.5-4.9) Albumin 2.4 gm/dl (3.4-5.0) Allergies Coded Allergies: Adhesives (Verified Allergy, Intermediate, RASH, 08/25/17) Amoxicillin (Verified Allergy, Intermediate, RASH, 08/25/17) Ampicillin (Verified Allergy, Intermediate, RASH, 08/25/17) Erythromycin (Verified Allergy, Intermediate, RASH, 08/25/17) Etodolac (Verified Allergy, Intermediate, RASH, 08/25/17) Penicillins (Verified Allergy, Intermediate, RASH, 08/25/17) Sulfa Antibiotics (Verified Allergy, Intermediate, RASH, 08/25/17) Aspirin (Verified Allergy, Mild, RASH, 08/25/17) Sevelamer (Verified Allergy, Mild, rash, 08/25/17) Medications Current Inpatient Medications Medications (Trade) Dose Ordered Sig/Deuardo Route Start Time Stop Time Status Last Admin Dose Admin Glucose (Glucose 40% Gel) 15-30 GRAMS 15 GRAMS... UD PRN PO 08/25/17 22:45 09/24/17 22:44 Glucose (Glucose Chew Tab) 4-8 Tablets 4 Tabl... UD PRN PO 08/25/17 22:45 09/24/17 22:44 Dextrose (Dextrose 50% 50ML Syringe) 25-50ML OF 50% DW IV FOR... UD PRN IV 08/25/17 22:45 09/24/17 22:44 08/26/17 07:21 25 ML Glucagon (Glucagon Inj) 1 mg UD PRN SQ 08/25/17 22:45 09/24/17 22:44 Morphine Sulfate (MoRPHine SULFATE INJ) 2 mg Q1H PRN IV 08/25/17 22:45 09/08/17 22:44 08/30/17 08:31 2 MG Insulin Glargine (Lantus Solostar Pen) 3 units DAILY SC 08/26/17 09:00 09/25/17 08:59 08/30/17 08:26 3 UNITS Ceftriaxone Sodium 1 gm/ Dextrose 50 ml @ 120 mls/hr DAILY@1300 IV 08/26/17 13:00 09/05/17 12:59 08/29/17 14:04 120 MLS/HR Metronidazole 500 mg/Prmx 100 ml @ 100 mls/hr Q8H IV 08/27/17 12:00 09/06/17 11:59 08/30/17 04:12 100 MLS/HR Insulin Aspart (novoLOG ASPART) SLIDING SCALE If C... ACHS SC 08/27/17 21:00 09/25/17 11:59 08/30/17 08:26 1 UNITS Hydralazine HCl (Apresoline Tab) 25 mg BID PO 08/28/17 21:00 09/27/17 20:59 08/29/17 21:49 25 MG Metoprolol Tartrate (Lopressor Tab) 100 mg BID PO 08/28/17 21:00 09/27/17 20:59 08/29/17 21:48 100 MG Hydralazine HCl (HydrALAZINE INJ) 10 mg Q6H PRN IV. 08/29/17 12:00 09/28/17 11:59 Ondansetron HCl (Zofran Inj) 4 mg Q6H PRN IV 08/29/17 14:30 09/28/17 14:29 08/29/17 14:48 4 MG Lisinopril (Zestril Tab) 20 mg DAILY PO 08/30/17 09:30 09/28/17 12:44 Impression (1) ESRD (end stage renal disease) on dialysis (2) Hyperparathyroidism due to ESRD on dialysis (3) Benign hypertension with ESRD (end-stage renal disease) (4) Acute appendicitis with rupture Frieda Turner is a 67 year-old female with DM, HTN, jRA, ESRD on HD. She was admitted with ruptured appendicitis. She remains afebrile. WBC normal. No signs of systemic infection. She is being managed conservatively with IV Cipro and Flagyl. Progressive anemia noted. No signs of bleeding otherwise. HD MWF. LUE AVF. Tolerated dialysis yesterday without complications. Recommendations -- due for dialysis this morning -- Increase hydralazine PRN for hypertension -- Epogen 80302 IU with HD given on 08/28/17, hemoglobin stable. -- CBC, metabolic profile Q MWF -- Hold PO4 binders while taking liquid diet
[2017-08-30] MEDS: CEFTRIAXONE SOD INJ 1 GM in DEXTROSE 5% ADD-VANTAGE 50ML 50 ML IV SCH (13:54)
[2017-08-30] MEDS: HydrALAZINE HCL 20 MG/ML VIAL IV. PRN (22:41)
[2017-08-31] VITALS (7 sets, daily range): BP systolic 143–193; BP diastolic 58–83; PULSE 54–67; TEMP 36.6–37; O2SAT 98–99
[2017-08-31] MEDS: MoRPHine SULFATE 2 MG/ML CARP IV PRN ×2 (00:27→23:55)
[2017-08-31] MEDS: METRONIDAZOLE / NSS 500 MG in PREMIXED NSS 100 ML IV SCH ×3 (04:37→20:48)
[2017-08-31 07:03] LABS: HEMATOCRIT 28.9 % (37-47); MEAN CORPUSCULAR HEMOGLOBIN 30.8 pg (25-34); MEAN CORPUSCULAR HGB CONC 31.5 g/dl (32-36); MEAN PLATELET VOLUME 8.7 fL (7.4-10.4); PLATELET COUNT 254 K/uL (130-400); RED BLOOD COUNT 2.95 M/uL (4.2-5.4); WHITE BLOOD COUNT 4.71 K/uL (4.8-10.8)
[2017-08-31 07:39] LABS: BUN/CREATININE RATIO 3.3 (10-20); CREATININE 5.16 mg/dl (0.60-1.20); PHOSPHORUS 4.7 mg/dl (2.5-4.9)
[2017-08-31 07:40] LABS: POTASSIUM 4.5 mmol/L (3.5-5.1)
--- NOTE | 2017-08-31 08:53 | Surgery Progress Note ---
Surgery Progress Note Date of Service Aug 31, 2017. Subjective Post OP Day: HD # 6 + feeling well, + complaints (Loose stools), + bowel movement, + pain controlled , + diet (tolerating regular diet), No nausea, No vomiting Objective Vital Signs: Date Time Temp Pulse Resp B/P (MAP) Pulse Ox O2 Delivery O2 Flow Rate FiO2 08/31/17 07:14 Room Air 08/31/17 07:14 36.6 58 18 191/72 (111) 98 Room Air 08/31/17 00:18 Room Air 08/30/17 22:59 37.2 57 16 140/63 (88) 97 Room Air 08/30/17 22:37 56 184/69 (107) 08/30/17 20:35 65 185/69 (107) 08/30/17 15:25 Room Air 08/30/17 15:18 37.0 64 18 125/53 (77) 98 Room Air 08/30/17 13:37 36.9 62 16 202/75 (117) 98 Room Air 08/30/17 13:19 37.0 69 16 99 08/30/17 12:51 37.0 69 16 120/57 (78) 99 08/30/17 12:45 36.7 58 187/77 (113) 08/30/17 12:30 55 188/74 08/30/17 12:15 54 185/70 08/30/17 12:00 54 193/79 08/30/17 11:45 55 185/74 08/30/17 11:30 55 186/73 08/30/17 11:15 58 153/99 08/30/17 11:00 59 177/75 08/30/17 10:45 57 163/76 08/30/17 10:30 57 183/72 08/30/17 10:15 57 168/72 08/30/17 10:00 58 173/74 08/30/17 09:45 59 184/80 08/30/17 09:21 36.7 59 196/83 (120) General Appearance: WD/WN, no apparent distress Head: normocephalic, atraumatic Neck: supple, trachea midline Abdomen: normal bowel sounds, non distended, soft, no organomegaly, + tenderness (Mild TTP RLQ) Incision(s): clean, dry, intact, no erythema, no drainage Laboratory Results: Results Past 24 Hours Test 08/30/17 13:40 08/30/17 16:59 08/30/17 20:17 08/31/17 06:12 Range/Units Bedside Glucose 116 203 241 70-90 mg/dl White Blood Count 4.71 4.8-10.8 K/uL Red Blood Count 2.95 4.2-5.4 M/uL Hemoglobin 9.1 12.0-16.0 g/dL Hematocrit 28.9 37-47 % Mean Corpuscular Volume 98.0 80-100 fL Mean Corpuscular Hemoglobin 30.8 25-34 pg Mean Corpuscular Hemoglobin Concent 31.5 32-36 g/dl RDW Standard Deviation 52.8 36.4-46.3 fL RDW Coefficient of Variation 14.9 11.5-14.5 % Platelet Count 254 130-400 K/uL Mean Platelet Volume 8.7 7.4-10.4 fL Nucleated RBC Absolute Count (auto) 0.02 0-0 K/uL Nucleated Red Blood Cells % 0.3 % Sodium Level 134 136-145 mmol/L Potassium Level 4.5 3.5-5.1 mmol/L Chloride Level 104 98-107 mmol/L Carbon Dioxide Level 25 21-32 mmol/L Anion Gap 6.0 3-11 mmol/L Blood Urea Nitrogen 17 7-18 mg/dl Creatinine 5.16 0.60-1.20 mg/dl Est Creatinine Clear Calc Drug Dose 8.3 ml/min Estimated GFR () 9.2 Estimated GFR (Non- 8.0 BUN/Creatinine Ratio 3.3 10-20 Random Glucose 165 70-99 mg/dl Calcium Level 8.0 8.5-10.1 mg/dl Phosphorus Level 4.7 2.5-4.9 mg/dl Albumin 2.3 3.4-5.0 gm/dl Test 08/31/17 07:58 Range/Units Bedside Glucose 144 70-90 mg/dl Assessment & Plan HD # 6 s/p perforated appendicitis Probable D/C tomorrow Tolerating regular diet, +BM - Loose but to be expected, urinating without trouble. Continue IV cipro and Flagyl until D/C ADAT, Continue SCDs Will D/C with PO cipro and flagyl x 7 days Will F/U with [facility] surgery - outpatient. Continue current Medical therapy pnt s&e, agree with above. Perforated appendicitis with small abscess, being treated non operatively with iv abx. Doing well, af, minimally ttp. Likely discharge tomorrow. Ty Neal, DO regular diet ambulate
[2017-08-31] MEDS: INSULIN ASPART 100 UNITS/ML 3 ML PEN SC SCH ×4 (09:58→20:44)
[2017-08-31] MEDS: INSULIN GLARGINE SOLOSTAR 100 UNITS/ML 3 ML PEN SC SCH (09:59)
[2017-08-31] MEDS: METOPROLOL TARTRATE 100 MG TAB PO SCH ×2 (10:01→20:48)
--- NOTE | 2017-08-31 11:15 | Nephrology Progress Note ---
Nephrology Progress Note Date of Service Aug 31, 2017. Chief Complaint Follow-up for end-stage renal disease on hemodialysis. Subjective Frieda was seen and examined in her room. Overall feeling better, abdominal pain better, tolerating regular diet, had BM. BP running high. Had Hd yesterday for 3 h Review of Systems A complete review of systems was performed. Pertinent positives are noted above. All other systems are negative. Vital Signs Last 8 Hrs Date Time Temp Pulse Resp B/P (MAP) Pulse Ox O2 Delivery O2 Flow Rate FiO2 08/31/17 09:55 60 156/67 (96) 08/31/17 08:45 67 143/58 (86) 08/31/17 07:14 Room Air 08/31/17 07:14 36.6 58 18 191/72 (111) 98 Room Air Last Recorded Weight Weight (Kilograms): 50.200 Physical Exam GENERAL: Middle-aged female, AAA x 3, pleasant, not in any distress. NECK: Supple, no JVD. RESPIRATORY: Normal breathing efforts, no accessory muscle use, clear to auscultation bilaterally, no wheezes or rales. CARDIOVASCULAR: S1, S2 normal, rate rhythm regular. EXTREMITY: No lower extremity edema NEURO: speech fluent. PSYCHIATRY: Normal mood and judgment Family History No pertinent family history Social History Marital Status: 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 Laboratory Results Past 24 Hours 08/31/17 06:12 08/31/17 06:12 Test 08/30/17 13:40 08/30/17 16:59 08/30/17 20:17 08/31/17 06:12 Bedside Glucose 116 mg/dl (70-90) 203 mg/dl (70-90) 241 mg/dl (70-90) Red Blood Count 2.95 M/uL (4.2-5.4) Mean Corpuscular Volume 98.0 fL (80-100) Mean Corpuscular Hemoglobin 30.8 pg (25-34) Mean Corpuscular Hemoglobin Concent 31.5 g/dl (32-36) RDW Standard Deviation 52.8 fL (36.4-46.3) RDW Coefficient of Variation 14.9 % (11.5-14.5) Mean Platelet Volume 8.7 fL (7.4-10.4) Nucleated RBC Absolute Count (auto) 0.02 K/uL (0-0) Nucleated Red Blood Cells % 0.3 % Anion Gap 6.0 mmol/L (3-11) Est Creatinine Clear Calc Drug Dose 8.3 ml/min Estimated GFR () 9.2 Estimated GFR (Non- 8.0 BUN/Creatinine Ratio 3.3 (10-20) Calcium Level 8.0 mg/dl (8.5-10.1) Phosphorus Level 4.7 mg/dl (2.5-4.9) Albumin 2.3 gm/dl (3.4-5.0) Test 08/31/17 07:58 Bedside Glucose 144 mg/dl (70-90) Allergies Coded Allergies: Adhesives (Verified Allergy, Intermediate, RASH, 08/25/17) Amoxicillin (Verified Allergy, Intermediate, RASH, 08/25/17) Ampicillin (Verified Allergy, Intermediate, RASH, 08/25/17) Erythromycin (Verified Allergy, Intermediate, RASH, 08/25/17) Etodolac (Verified Allergy, Intermediate, RASH, 08/25/17) Penicillins (Verified Allergy, Intermediate, RASH, 08/25/17) Sulfa Antibiotics (Verified Allergy, Intermediate, RASH, 08/25/17) Aspirin (Verified Allergy, Mild, RASH, 08/25/17) Sevelamer (Verified Allergy, Mild, rash, 08/25/17) Medications Current Inpatient Medications Medications (Trade) Dose Ordered Sig/Eduardo Route Start Time Stop Time Status Last Admin Dose Admin Glucose (Glucose 40% Gel) 15-30 GRAMS 15 GRAMS... UD PRN PO 08/25/17 22:45 09/24/17 22:44 Glucose (Glucose Chew Tab) 4-8 Tablets 4 Tabl... UD PRN PO 08/25/17 22:45 09/24/17 22:44 Dextrose (Dextrose 50% 50ML Syringe) 25-50ML OF 50% DW IV FOR... UD PRN IV 08/25/17 22:45 09/24/17 22:44 08/26/17 07:21 25 ML Glucagon (Glucagon Inj) 1 mg UD PRN SQ 08/25/17 22:45 09/24/17 22:44 Morphine Sulfate (MoRPHine SULFATE INJ) 2 mg Q1H PRN IV 08/25/17 22:45 09/08/17 22:44 08/31/17 00:27 2 MG Insulin Glargine (Lantus Solostar Pen) 3 units DAILY SC 08/26/17 09:00 09/25/17 08:59 08/31/17 09:59 3 UNITS Ceftriaxone Sodium 1 gm/ Dextrose 50 ml @ 120 mls/hr DAILY@1300 IV 08/26/17 13:00 09/05/17 12:59 08/30/17 13:54 120 MLS/HR Metronidazole 500 mg/Prmx 100 ml @ 100 mls/hr Q8H IV 08/27/17 12:00 09/06/17 11:59 08/31/17 04:37 100 MLS/HR Insulin Aspart (novoLOG ASPART) SLIDING SCALE If C... ACHS SC 08/27/17 21:00 09/25/17 11:59 08/31/17 09:58 4 UNITS Hydralazine HCl (Apresoline Tab) 25 mg BID PO 08/28/17 21:00 09/27/17 20:59 08/31/17 10:00 25 MG Metoprolol Tartrate (Lopressor Tab) 100 mg BID PO 08/28/17 21:00 09/27/17 20:59 08/31/17 10:01 100 MG Hydralazine HCl (HydrALAZINE INJ) 10 mg Q6H PRN IV. 08/29/17 12:00 09/28/17 11:59 08/30/17 22:41 10 MG Ondansetron HCl (Zofran Inj) 4 mg Q6H PRN IV 08/29/17 14:30 09/28/17 14:29 08/29/17 14:48 4 MG Lisinopril (Zestril Tab) 40 mg DAILY PO 09/01/17 09:00 09/28/17 12:44 Impression (1) ESRD (end stage renal disease) on dialysis (2) Hyperparathyroidism due to ESRD on dialysis (3) Benign hypertension with ESRD (end-stage renal disease) (4) Acute appendicitis with rupture Frieda Turner is a 67 year-old female with DM, HTN, jRA, ESRD on HD. She was admitted with ruptured appendicitis. She remains afebrile. WBC normal. No signs of systemic infection. She is being managed conservatively with IV Cipro and Flagyl. Progressive anemia noted. No signs of bleeding otherwise. HD MWF. LUE AVF. Tolerated dialysis yesterday without complications. Recommendations -- increase lisinopril to 40 mg/d -- Increase hydralazine PRN for hypertension -- Epogen [id number] IU with HD given on 08/28/17, hemoglobin stable. -- CBC, metabolic profile Q MWF -- resume PO4 binders with meal --Possible DC tomorrow and next HD at out pt unit.
--- NOTE | 2017-08-31 13:30 | Progress Note ---
Internal Med Progress Note Date of Service: Aug 31, 2017. Vital Signs: Date Time Temp Pulse Resp B/P (MAP) Pulse Ox O2 Delivery O2 Flow Rate FiO2 08/31/17 09:55 60 156/67 (96) 08/31/17 08:45 67 143/58 (86) 08/31/17 07:14 Room Air 08/31/17 07:14 36.6 58 18 191/72 (111) 98 Room Air 08/31/17 00:18 Room Air 08/30/17 22:59 37.2 57 16 140/63 (88) 97 Room Air 08/30/17 22:37 56 184/69 (107) 08/30/17 20:35 65 185/69 (107) 08/30/17 15:25 Room Air 08/30/17 15:18 37.0 64 18 125/53 (77) 98 Room Air Lab Results: Results Past 24 Hours Test 08/30/17 13:40 08/30/17 16:59 08/30/17 20:17 08/31/17 06:12 Range/Units Bedside Glucose 116 203 241 70-90 mg/dl White Blood Count 4.71 4.8-10.8 K/uL Red Blood Count 2.95 4.2-5.4 M/uL Hemoglobin 9.1 12.0-16.0 g/dL Hematocrit 28.9 37-47 % Mean Corpuscular Volume 98.0 80-100 fL Mean Corpuscular Hemoglobin 30.8 25-34 pg Mean Corpuscular Hemoglobin Concent 31.5 32-36 g/dl RDW Standard Deviation 52.8 36.4-46.3 fL RDW Coefficient of Variation 14.9 11.5-14.5 % Platelet Count 254 130-400 K/uL Mean Platelet Volume 8.7 7.4-10.4 fL Nucleated RBC Absolute Count (auto) 0.02 0-0 K/uL Nucleated Red Blood Cells % 0.3 % Sodium Level 134 136-145 mmol/L Potassium Level 4.5 3.5-5.1 mmol/L Chloride Level 104 98-107 mmol/L Carbon Dioxide Level 25 21-32 mmol/L Anion Gap 6.0 3-11 mmol/L Blood Urea Nitrogen 17 7-18 mg/dl Creatinine 5.16 0.60-1.20 mg/dl Est Creatinine Clear Calc Drug Dose 8.3 ml/min Estimated GFR () 9.2 Estimated GFR (Non- 8.0 BUN/Creatinine Ratio 3.3 10-20 Random Glucose 165 70-99 mg/dl Calcium Level 8.0 8.5-10.1 mg/dl Phosphorus Level 4.7 2.5-4.9 mg/dl Albumin 2.3 3.4-5.0 gm/dl Test 08/31/17 07:58 08/31/17 11:53 Range/Units Bedside Glucose 144 201 70-90 mg/dl
--- NOTE | 2017-08-31 13:38 | Progress Note ---
Internal Med Progress Note Date of Service: Aug 31, 2017. Provider Documentation: SUBJECTIVE: Seen and examined at bedside Tolerating diet Still has some abdominal pain Denies Nausea, dizziness, headache, chest pain, SOB No new complaints Overall doing well OBJECTIVE: Vital Signs-as noted below Physical Exam: General Appearance:Moderately built and nourished, no apparent distress Head: normocephalic, Atraumatic Eyes: normal inspection, EOMI, PERRL Neck: supple, Trachea midline Respiratory/Chest: Normal breath sounds, CTA Cardiovascular: S1, S2, No murmur Abdomen/GI:Soft, RLQ mild tender, Bowel sounds present Extremities/Musculoskelatal:normal inspection, no edema Neurologic/Psych:AAOX3, grossly no focal neurological deficits Skin: normal color, warm Lab data as noted below. ASSESSMENT & PLAN: Ruptured appendicitis with abscess formation No signs of sepsis. CT ABD as below Continue IV Cipro and Flagyl, noted plan to be switched to PO upon discharge Management as per Surgery Pain control Tolerating diet Encourage ambulation Noted plan for discharge tomorrow Hypertension: slightly elevated secondary to pain and missed nighttime meds on presentation Continue home meds: Hydralazine, BB, Lisinopril Lisinopril dose increased to 40mg daily Hydralazine IV PRN monitor Prolonged QTC: Avoid QTC prolonging meds repeat EKG: QTC normalized DM1. Patient w/ hypoglycemic episodes at the ER secondary to poor p.o. intake Basal insulin adjusted for n.p.o. state, ISS BG goal 140-180. hemoglobin A1c.-7.4 SSI and check BS Q6H ESRD on HD Nephrology consult regarding dialysis management. on MWF HD Chronic anemia secondary to ESRD Hb at baseline monitor Juvenile rheumatoid arthritis as per records. No acute symptoms DVT px: SCDs for now. Disposition: Per Primary team PROCEDURES: CT ABD: 1. Again seen is a large inflammatory process centered around the base of the cecum. The appendix is not identified. There is phlegmonous change in this region with a serpiginous fluid collection typical in appearance for abscess. The appearance is highly concerning for perforated appendicitis. 2. No intraperitoneal free air is seen. 3. There is wall thickening involving the base of the cecum and an adjacent loop of the distal/terminal ileum, likely on a reactive basis. 4. There are mildly enlarged mesenteric and retroperitoneal lymph nodes. 5. Cholelithiasis. 6. The pancreas is atrophic with evidence of chronic pancreatitis. The pancreatic duct is dilated and there is a large obstructing stone present within the main pancreatic duct. Consider nonemergent GI follow-up. 7. Bilateral nonobstructing renal calculi. 8. Moderate fecal retention is noted in the right colon. There is no bowel obstruction. 9. Trace pleural effusions. 10. Mild bladder wall thickening suggested. Correlation with urinalysis will be required. 11. Additional findings as above. Vital Signs: Date Time Temp Pulse Resp B/P (MAP) Pulse Ox O2 Delivery O2 Flow Rate FiO2 08/31/17 09:55 60 156/67 (96) 08/31/17 08:45 67 143/58 (86) 08/31/17 07:14 Room Air 08/31/17 07:14 36.6 58 18 191/72 (111) 98 Room Air 08/31/17 00:18 Room Air 08/30/17 22:59 37.2 57 16 140/63 (88) 97 Room Air 08/30/17 22:37 56 184/69 (107) 08/30/17 20:35 65 185/69 (107) 08/30/17 15:25 Room Air 08/30/17 15:18 37.0 64 18 125/53 (77) 98 Room Air 08/30/17 13:37 36.9 62 16 202/75 (117) 98 Room Air Lab Results: Results Past 24 Hours Test 08/30/17 13:40 08/30/17 16:59 08/30/17 20:17 08/31/17 06:12 Range/Units Bedside Glucose 116 203 241 70-90 mg/dl White Blood Count 4.71 4.8-10.8 K/uL Red Blood Count 2.95 4.2-5.4 M/uL Hemoglobin 9.1 12.0-16.0 g/dL Hematocrit 28.9 37-47 % Mean Corpuscular Volume 98.0 80-100 fL Mean Corpuscular Hemoglobin 30.8 25-34 pg Mean Corpuscular Hemoglobin Concent 31.5 32-36 g/dl RDW Standard Deviation 52.8 36.4-46.3 fL RDW Coefficient of Variation 14.9 11.5-14.5 % Platelet Count 254 130-400 K/uL Mean Platelet Volume 8.7 7.4-10.4 fL Nucleated RBC Absolute Count (auto) 0.02 0-0 K/uL Nucleated Red Blood Cells % 0.3 % Sodium Level 134 136-145 mmol/L Potassium Level 4.5 3.5-5.1 mmol/L Chloride Level 104 98-107 mmol/L Carbon Dioxide Level 25 21-32 mmol/L Anion Gap 6.0 3-11 mmol/L Blood Urea Nitrogen 17 7-18 mg/dl Creatinine 5.16 0.60-1.20 mg/dl Est Creatinine Clear Calc Drug Dose 8.3 ml/min Estimated GFR () 9.2 Estimated GFR (Non- 8.0 BUN/Creatinine Ratio 3.3 10-20 Random Glucose 165 70-99 mg/dl Calcium Level 8.0 8.5-10.1 mg/dl Phosphorus Level 4.7 2.5-4.9 mg/dl Albumin 2.3 3.4-5.0 gm/dl Test 08/31/17 07:58 08/31/17 11:53 Range/Units Bedside Glucose 144 201 70-90 mg/dl
[2017-08-31] MEDS: CALCIUM ACETATE 667MG GELCAP PO SCH ×2 (14:00→17:48)
[2017-08-31] MEDS: CEFTRIAXONE SOD INJ 1 GM in DEXTROSE 5% ADD-VANTAGE 50ML 50 ML IV SCH (15:27)
[2017-08-31] MEDS: HydrALAZINE HCL 20 MG/ML VIAL IV. PRN (23:01)
[2017-09-01] MEDS: METRONIDAZOLE / NSS 500 MG in PREMIXED NSS 100 ML IV SCH ×2 (03:59→11:52)
[2017-09-01] MEDS: ONDANSETRON INJ 2 MG/ML 2 ML VIAL IV PRN (04:01)
[2017-09-01 07:13] VITALS: BP 172/71; PULSE 57; TEMP 36.8; O2SAT 98
[2017-09-01] MEDS ORDERED: LISINOPRIL 40 MG TAB PO SCH (09:00)
[2017-09-01] MEDS: METOPROLOL TARTRATE 100 MG TAB PO SCH (09:07)
[2017-09-01] MEDS: CALCIUM ACETATE 667MG GELCAP PO SCH ×2 (09:07→12:57)
[2017-09-01] MEDS: INSULIN ASPART 100 UNITS/ML 3 ML PEN SC SCH ×2 (09:12→13:02)
[2017-09-01] MEDS: INSULIN GLARGINE SOLOSTAR 100 UNITS/ML 3 ML PEN SC SCH (09:13)
[2017-09-01 10:11] VITALS: BP 168/73
--- NOTE | 2017-09-01 11:28 | Nephrology Progress Note ---
Nephrology Progress Note Date of Service Sep 01, 2017. Chief Complaint Follow-up for end-stage renal disease on hemodialysis. Korey Malave was seen and examined in her room this morning. She still has some abdominal pain but overall feeling better and ready to go home. Blood pressure continues to be elevated, lisinopril was increased to 40 mg, her home dose. Review of Systems A complete review of systems was performed. Pertinent positives are noted above. All other systems are negative. Vital Signs Last 8 Hrs Date Time Temp Pulse Resp B/P (MAP) Pulse Ox O2 Delivery O2 Flow Rate FiO2 09/01/17 07:18 Room Air 09/01/17 07:13 36.8 57 16 172/71 (104) 98 Room Air Last Recorded Weight Weight (Kilograms): 50.200 Physical Exam GENERAL: Middle-aged female, AAA x 3, pleasant, not in any distress. NECK: Supple, no JVD. RESPIRATORY: Normal breathing efforts, no accessory muscle use, clear to auscultation bilaterally, no wheezes or rales. CARDIOVASCULAR: S1, S2 normal, rate rhythm regular. EXTREMITY: No lower extremity edema NEURO: speech fluent. PSYCHIATRY: Normal mood and judgment Family History No pertinent family history Social History Marital Status: 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 Laboratory Results Past 24 Hours Test 08/31/17 11:53 08/31/17 16:57 08/31/17 20:25 09/01/17 08:12 Bedside Glucose 201 mg/dl (70-90) 192 mg/dl (70-90) 111 mg/dl (70-90) 116 mg/dl (70-90) Allergies Coded Allergies: Adhesives (Verified Allergy, Intermediate, RASH, 08/25/17) Amoxicillin (Verified Allergy, Intermediate, RASH, 08/25/17) Ampicillin (Verified Allergy, Intermediate, RASH, 08/25/17) Erythromycin (Verified Allergy, Intermediate, RASH, 08/25/17) Etodolac (Verified Allergy, Intermediate, RASH, 08/25/17) Penicillins (Verified Allergy, Intermediate, RASH, 08/25/17) Sulfa Antibiotics (Verified Allergy, Intermediate, RASH, 08/25/17) Aspirin (Verified Allergy, Mild, RASH, 08/25/17) Sevelamer (Verified Allergy, Mild, rash, 08/25/17) Medications Current Inpatient Medications Medications (Trade) Dose Ordered Sig/Eduardo Route Start Time Stop Time Status Last Admin Dose Admin Glucose (Glucose 40% Gel) 15-30 GRAMS 15 GRAMS... UD PRN PO 08/25/17 22:45 09/24/17 22:44 Glucose (Glucose Chew Tab) 4-8 Tablets 4 Tabl... UD PRN PO 08/25/17 22:45 09/24/17 22:44 Dextrose (Dextrose 50% 50ML Syringe) 25-50ML OF 50% DW IV FOR... UD PRN IV 08/25/17 22:45 09/24/17 22:44 08/26/17 07:21 25 ML Glucagon (Glucagon Inj) 1 mg UD PRN SQ 08/25/17 22:45 09/24/17 22:44 Morphine Sulfate (MoRPHine SULFATE INJ) 2 mg Q1H PRN IV 08/25/17 22:45 09/08/17 22:44 08/31/17 23:55 2 MG Insulin Glargine (Lantus Solostar Pen) 3 units DAILY SC 08/26/17 09:00 09/25/17 08:59 09/01/17 09:13 3 UNITS Ceftriaxone Sodium 1 gm/ Dextrose 50 ml @ 120 mls/hr DAILY@1300 IV 08/26/17 13:00 09/05/17 12:59 08/31/17 15:27 120 MLS/HR Metronidazole 500 mg/Prmx 100 ml @ 100 mls/hr Q8H IV 08/27/17 12:00 09/06/17 11:59 09/01/17 03:59 100 MLS/HR Insulin Aspart (novoLOG ASPART) SLIDING SCALE If C... ACHS SC 08/27/17 21:00 09/25/17 11:59 09/01/17 09:12 1 UNITS Hydralazine HCl (Apresoline Tab) 25 mg BID PO 08/28/17 21:00 09/27/17 20:59 09/01/17 09:06 25 MG Metoprolol Tartrate (Lopressor Tab) 100 mg BID PO 08/28/17 21:00 09/27/17 20:59 09/01/17 09:07 100 MG Hydralazine HCl (HydrALAZINE INJ) 10 mg Q6H PRN IV. 08/29/17 12:00 09/28/17 11:59 08/31/17 23:01 10 MG Ondansetron HCl (Zofran Inj) 4 mg Q6H PRN IV 08/29/17 14:30 09/28/17 14:29 09/01/17 04:01 4 MG Lisinopril (Zestril Tab) 40 mg DAILY PO 09/01/17 09:00 09/28/17 12:44 09/01/17 09:07 40 MG Calcium Acetate (Phoslo Cap) 667 mg TIDM PO 08/31/17 12:30 09/30/17 12:29 09/01/17 09:07 667 MG Impression (1) ESRD (end stage renal disease) on dialysis (2) Hyperparathyroidism due to ESRD on dialysis (3) Benign hypertension with ESRD (end-stage renal disease) (4) Acute appendicitis with rupture Frieda Turner is a 67 year-old female with DM, HTN, jRA, ESRD on HD. She was admitted with ruptured appendicitis. She remains afebrile. WBC normal. No signs of systemic infection. She is being managed conservatively with IV Cipro and Flagyl. Progressive anemia noted. No signs of bleeding otherwise. HD MWF. LUE AVF. Tolerated dialysis yesterday without complications. Recommendations -- Continue lisinopril to 40 mg/d, metoprolol -- decrease metoprolol to 50 milligram twice a day as heart rate has been running around 50s --discontinue hydralazine, start on amlodipine 5 milligram p.o. daily and increase dose as needed --advise patient to continue to check blood pressure at home and keep a record, will see her next week at dialysis unit and make further adjustment in her antihypertensive medications as needed -- Epogen 80967 IU with HD given on 08/28/17, hemoglobin stable. -- CBC, metabolic profile Q MWF -- resume PO4 binders with meal --Possible DC today and next HD at out pt unit.
--- NOTE | 2017-09-01 12:15 | Surgery Progress Note ---
Surgery Progress Note Date of Service Sep 01, 2017. Subjective Post OP Day: HD # 7 + feeling well, + ambulating, + bowel movement (BM yesterday without trouble), + flatus, + pain controlled (has not been requesting pain medication), + diet ( Tolerating Regular Diet), No nausea, No vomiting Objective Vital Signs: Date Time Temp Pulse Resp B/P (MAP) Pulse Ox O2 Delivery O2 Flow Rate FiO2 09/01/17 10:11 168/73 (104) 09/01/17 07:18 Room Air 09/01/17 07:13 36.8 57 16 172/71 (104) 98 Room Air 09/01/17 00:00 Room Air 08/31/17 23:54 60 160/69 (99) 08/31/17 22:52 37.0 58 16 193/83 (119) 99 Room Air 08/31/17 20:47 56 172/78 (109) 08/31/17 15:20 Room Air 08/31/17 15:15 36.9 54 18 144/69 (94) 98 Room Air General Appearance: WD/WN, no apparent distress Head: normocephalic, atraumatic Neck: trachea midline Abdomen: normal bowel sounds, non distended, soft, no organomegaly, + tenderness (Mild RLQ) Laboratory Results: Results Past 24 Hours Test 08/31/17 16:57 08/31/17 20:25 09/01/17 08:12 Range/Units Bedside Glucose 192 111 116 70-90 mg/dl Assessment & Plan 09/01/2017 HD # 7 s/p perforated appendicitis Pain controlled, ambulating okay, tolerating regular diet, + BM yesterday (slightly loose), voiding ok. D/C today with PO cipro and flagyl for infection, PO Percocet for pain. F/U with [facility] General surgery in clinic - F/U instructions reviewed. 08/31/2017: HD # 6 s/p perforated appendicitis Probable D/C tomorrow Tolerating regular diet, +BM - Loose but to be expected, urinating without trouble. Continue IV cipro and Flagyl until D/C ADAT, Continue SCDs Will D/C with PO cipro and flagyl x 7 days Will F/U with [facility] general surgery - outpatient. Continue current Medical therapy HD # 6 s/p perforated appendicitis Probable D/C tomorrow Tolerating regular diet, +BM - Loose but to be expected, urinating without trouble. Continue IV cipro and Flagyl until D/C ADAT, Continue SCDs Will D/C with PO cipro and flagyl x 7 days Will F/U with [facility] general surgery - outpatient. Continue current Medical therapy
[2017-09-01] MEDS: CEFTRIAXONE SOD INJ 1 GM in DEXTROSE 5% ADD-VANTAGE 50ML 50 ML IV SCH (12:58)
[2017-09-01 13:16] VITALS: BP 168/73; PULSE 57; TEMP 36.8; O2SAT 98
[2017-09-01] MEDS ORDERED: LSN40 PO (13:30)
[2017-09-01] MEDS ORDERED: METO50TA16 PO (13:30)
[2017-09-01] MEDS ORDERED: NRV5 PO (13:30)
--- NOTE | 2017-09-01 13:41 | Progress Note ---
Internal Med Progress Note Date of Service: Sep 01, 2017. Provider Documentation: SUBJECTIVE: Seen and examined at bedside Abd pain is controlled Tolerating diet, Had BM Denies Nausea, dizziness, headache, chest pain, SOB No new complaints Planned to be discharged today OBJECTIVE: Vital Signs-as noted below Physical Exam: General Appearance:Moderately built and nourished, no apparent distress Head: normocephalic, Atraumatic Eyes: normal inspection, EOMI, PERRL Neck: supple, Trachea midline Respiratory/Chest: Normal breath sounds, CTA Cardiovascular: S1, S2, No murmur Abdomen/GI:Soft, RLQ mild tender, Bowel sounds present Extremities/Musculoskelatal:normal inspection, no edema Neurologic/Psych:AAOX3, grossly no focal neurological deficits Skin: normal color, warm Lab data as noted below. ASSESSMENT & PLAN: Ruptured appendicitis with abscess formation No signs of sepsis. CT ABD as below Continue IV Cipro and Flagyl, noted plan to be switched to PO upon discharge Management as per Surgery Pain control Tolerating diet Encourage ambulation Noted plan for discharge tomorrow Hypertension: slightly elevated secondary to pain and missed nighttime meds on presentation Will discontinue hydralazine Continue BB at decreased dose 50mg BID secondary to relative bradycardia Increase Lisinopril to 40mg daily Added Amlodipine 5mg daily Needs follow up with PCP for close monitoring of BP and medication adjustments Appreciate Nephrology recommendations May need to increase dose of amlodipine as outpatient if BP continues to be elevated Prolonged QTC: Avoid QTC prolonging meds repeat EKG: QTC normalized DM1. Patient w/ hypoglycemic episodes at the ER secondary to poor p.o. intake Basal insulin adjusted for n.p.o. state, ISS BG goal 140-180. hemoglobin A1c.-7.4 SSI and check BS Q6H ESRD on HD Nephrology consult regarding dialysis management. on MWF HD Chronic anemia secondary to ESRD Hb at baseline monitor Juvenile rheumatoid arthritis as per records. No acute symptoms DVT px: SCDs for now. Disposition: Per Primary team PROCEDURES: CT ABD: 1. Again seen is a large inflammatory process centered around the base of the cecum. The appendix is not identified. There is phlegmonous change in this region with a serpiginous fluid collection typical in appearance for abscess. The appearance is highly concerning for perforated appendicitis. 2. No intraperitoneal free air is seen. 3. There is wall thickening involving the base of the cecum and an adjacent loop of the distal/terminal ileum, likely on a reactive basis. 4. There are mildly enlarged mesenteric and retroperitoneal lymph nodes. 5. Cholelithiasis. 6. The pancreas is atrophic with evidence of chronic pancreatitis. The pancreatic duct is dilated and there is a large obstructing stone present within the main pancreatic duct. Consider nonemergent GI follow-up. 7. Bilateral nonobstructing renal calculi. 8. Moderate fecal retention is noted in the right colon. There is no bowel obstruction. 9. Trace pleural effusions. 10. Mild bladder wall thickening suggested. Correlation with urinalysis will be required. 11. Additional findings as above. Vital Signs: Date Time Temp Pulse Resp B/P (MAP) Pulse Ox O2 Delivery O2 Flow Rate FiO2 09/01/17 10:11 168/73 (104) 09/01/17 07:18 Room Air 09/01/17 07:13 36.8 57 16 172/71 (104) 98 Room Air 09/01/17 00:00 Room Air 08/31/17 23:54 60 160/69 (99) 08/31/17 22:52 37.0 58 16 193/83 (119) 99 Room Air 08/31/17 20:47 56 172/78 (109) 08/31/17 15:20 Room Air 08/31/17 15:15 36.9 54 18 144/69 (94) 98 Room Air Lab Results: Results Past 24 Hours Test 08/31/17 16:57 08/31/17 20:25 09/01/17 08:12 09/01/17 11:56 Range/Units Bedside Glucose 192 111 116 164 70-90 mg/dl
[2017-09-01] MEDS ORDERED: METOPROLOL TARTRATE 50 MG TAB PO SCH (21:00)
[2017-09-02] MEDS ORDERED: AMLODIPINE BESYLATE 5 MG TAB PO SCH (09:00)
--- NOTE | 2017-09-06 09:10 | Discharge Summary ---
Discharge Summary Dates Admission Date / Time: Aug 25, 2017 at 22:45 Discharge Date: Sep 01, 2017 Dispostion / Condition Discharge Disposition: Home Condition at Discharge: Good Principal Diagnosis (1) Acute appendicitis with rupture Problem List (1) acute renal failure, DKA, PNA (2) Benign hypertension with ESRD (end-stage renal disease) (3) ESRD (end stage renal disease) on dialysis (4) Hyperparathyroidism due to ESRD on dialysis (5) Diabetes (6) Von Willebrand disease (7) Liver failure Consultations / Procedures Consultations: Hospitalist Nephrology Procedures: None Pending Studies / Follow-Up None Medication Reconciliation New Medications: Ciprofloxacin Hcl (Cipro) 500 Mg Tab 500 MG PO BID, #14 TAB 0 Refills Metronidazole (Flagyl) 500 Mg Tab 500 MG PO TID, #21 TAB Oxycodone/Acetaminophen 5MG/325MG (Percocet 5MG/325MG) Tab 1-2 TABLETS PO Q4H PRN for Pain, #30 TAB Amlodipine Besylate (Amlodipine Besylate) 5 Mg Tab 5 MG PO QAM for 30 Days, #30 TAB Lisinopril (Lisinopril) 40 Mg Tab 40 MG PO DAILY for 30 Days, #30 TAB Metoprolol Tartrate (Lopressor) (Lopressor) 50 Mg Tab 50 MG PO BID for 30 Days, #60 TAB Continued Medications: Bumetanide (Bumex) 2 Mg Tab 2 MG PO DAILY, TAB Calcium Acetate (Phoslo 667 Mg) 667 Mg Cap 3 CAPSULES PO WM, CAP Calcium Acetate (Phoslo 667 Mg) 667 Mg Cap 1 CAP PO with snacks for 30 Days, CAP 5 Refills Calcium Carbonate (Tums) 500 Mg Chew 2 TABS PO WM Cholecalciferol (Vitamin D3) 1,000 Inter.unit Tab 2000 UNITS PO DAILY Insulin Aspart (Novolog Flexpen) 100 Units/Ml Inj 0-40 UNITS SQ MEALS AFTER 1700 PRN for 1 UNIT FOR EVERY SEVEN CARBS Insulin Glargine (Lantus) 100 Unit/Ml Inj 7 UNITS SC QAM, VIAL Multiple Vitamins W/ Minerals (Prorenal Vital) 1 Tab Tab 1 TAB PO DAILY Psyllium (Metamucil Fiber) 51.7 % Jef 1 TSP PO DAILY Discontinued Medications: Hydralazine Hcl (Apresoline) 25 Mg Tab 25 MG PO BID, TAB Lisinopril (Lisinopril) 20 Mg Tab 20 MG PO DAILY Metoprolol Tartrate (Lopressor) 100 Mg Tab 100 MG PO BID, TAB Admission HPI Per the Admitting provider: History and physical per ER physician: The patient is a 67 year old female who presents to the Emergency Room with complaints of sharp right lower abdominal pain beginning four days ago. The patient states that her pain worsens when moves. She has decreased appetite, nausea, and chronic diarrhea. She denies any vomiting, chest pain, shortness of breath, headache or blood in her stool. The patient was referred to the ED by Dr. Lee. The patient has end stage renal disease on and is on dialysis three times a week (MWF). The patient still makes urine and denies any urinary symptoms. She has a history of diabetes and takes insulin. She states her sugar levels have been running around 160 which is baseline for her. The patient has arthritis but does not take any pain medications. The patient has no history of abdominal surgeries. Hospital Course (1) Acute appendicitis with rupture Patient was admitted by surgical service for conservative treatment for acute appendicitis with rupture and abscess formation. She was started on IV Cipro and Flagyl in the emergency department and continued throughout her stay. She was also started on IV pain management, IV fluids conservatively at 75 mls/hr, IV Zofran, and kept NPO. Medicine was consulted for medical management of diabetes and HTN. Nephrology was consulted for ESRD. On HD # 1 patient was doing well, pain about the same, slight nausea. Vitals stable and no leukocytosis. Diet was kept NPO and IV fluids and Antibiotics were continued. HD # 2 no changes. HD# 3 patient was started on clear liquids and encouraged to ambulate. HD # 4 tolerating clear liquids, afebrile, no leukocytosis, and pain improving. Still located in the RLQ with point tenderness. Diet advanced to full liquids. She did have positive bowel function with bowel movement. HD # 5 patients diet was advanced as tolerated. IV antibiotics were continued. HD # 6 tolerated regular diet. Had loose stools but no other issues. Antibiotics continued intravenously. HD # 6 afebrile, vitals stable, tolerating regular diet and pain minimal. She was discharged on HD # 7 with PO Cipro and Flagyl for 7 days. She will have follow-up with Dr. Ryan in 1-2 weeks. She had her dialysis treatments during her stay without any complications. Overall hospital course was uneventful. Discharge Instructions as given Copies To Primary Care Provider: Sixto Bella M.D..
== END 2017-09-01 16:10 | disposition home or self-care (01) | DRG 371 ==
LOC: C.EDB 15:21 → C.2T 22:45 → ENRESERV 23:12 → C.MSW 08-30 13:44
PROVIDERS: ADMIT Surgery; ATTEND Surgery
DX: K35.3 Acute appendicitis with localized peritonitis (principal); N18.6 End stage renal disease; D68.0 Von Willebrand disease; N25.81 Secondary hyperparathyroidism of renal origin; I12.0 Hypertensive chronic kidney disease with stage 5 chronic kidney disease or end stage renal disease; N17.9 Acute kidney failure, unspecified; E10.21 Type 1 diabetes mellitus with diabetic nephropathy; K72.90 Hepatic failure, unspecified without coma; Z88.0 Allergy status to penicillin; Z88.2 Allergy status to sulfonamides; K86.89 Other specified diseases of pancreas; M35.00 Sjogren syndrome, unspecified; M08.00 Unspecified juvenile rheumatoid arthritis of unspecified site; E83.39 Other disorders of phosphorus metabolism; D63.1 Anemia in chronic kidney disease; E10.649 Type 1 diabetes mellitus with hypoglycemia without coma

== ENCOUNTER 2017-10-17 00:24 | Inpatient (IN) | payer OTHER ==
[2017-10-17] VITALS (27 sets, daily range): BP systolic 137–190; BP diastolic 57–92; PULSE 56–74; TEMP 36.4–37.2; O2SAT 94–99; Ht 162.6 cm; Wt 56.3 kg
[~2017-10-17] VITALS: Ht 162.6 cm; Wt 56.3 kg
[~2017-10-17 00:24] MED LIST changes: -APR25 PO; +CIPR-255 PO; +LISI40TA3 PO; -LSN20 PO; -METO-596 PO; +METO50TA16 PO; +NRV5 PO; +OXYC-57 PO
[2017-10-17] MEDS ORDERED: AMLO5TAB3 PO (01:04)
[2017-10-17] MEDS ORDERED: LISI40TA PO (01:07)
[2017-10-17] MEDS ORDERED: METO50TA16 PO (01:08)
[2017-10-17] MEDS ORDERED: OXYC-57 PO (01:09)
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
[2017-10-17 01:41] LABS: HEMATOCRIT 34.6 % (37-47); HEMOGLOBIN 11.5 g/dL (12.0-16.0); MEAN CELL VOLUME 93.8 fL (80-100); MEAN CORPUSCULAR HEMOGLOBIN 31.2 pg (25-34); MEAN CORPUSCULAR HGB CONC 33.2 g/dl (32-36); MEAN PLATELET VOLUME 8.5 fL (7.4-10.4); PLATELET COUNT 274 K/uL (130-400); RED CELL DISTRIBUTION WIDTH CV 16.1 % (11.5-14.5); RED CELL DISTRIBUTION WIDTH SD 54.6 fL (36.4-46.3); WHITE BLOOD COUNT 12.53 K/uL (4.8-10.8)
[2017-10-17 03:03] LABS: BLOOD UREA NITROGEN 64 mg/dl (7-18); CALCIUM 7.2 mg/dl (8.5-10.1); CARBON DIOXIDE 20 mmol/L (21-32); CREATININE 7.74 mg/dl (0.60-1.20); GLUCOSE 181 mg/dl (70-99); POTASSIUM 3.2 mmol/L (3.5-5.1); SODIUM 134 mmol/L (136-145)
[2017-10-17 03:08] LABS: BASO % 0.1 %; BASO ABS # 0.01 K/uL (0-0.2); IG# 0.03 K/uL (0.00-0.02); LYMPH % 5.7 %; LYMPH ABS # 0.72 K/uL (1.2-3.4); MONO % 4.5 %; MONO ABS # 0.56 K/uL (0.11-0.59); NEUT % 89.5 %; NEUT ABS # 11.21 K/uL (1.4-6.5)
[2017-10-17] MEDS ORDERED: OPTIRAY 320 IV PRN (04:00)
[2017-10-17] MEDS ORDERED: LEVAQUIN 750MG / 150ML D5W IV STA (04:14)
[2017-10-17] MEDS ORDERED: CONSULT PHARMACY PRN (05:38)
[2017-10-17] MEDS ORDERED: VANCOMYCIN IV 1,000 MG in SODIUM CHLORIDE 0.9% 250ML 250 ML IV STA (05:39)
[2017-10-17] MEDS ORDERED: CALCIUM ACETATE 667MG GELCAP PO PRN (05:45)
[2017-10-17] MEDS ORDERED: ACETAMINOPHEN 325 MG TAB PO PRN (05:45)
[2017-10-17] MEDS ORDERED: GLUCOSE 40% GEL 15 GM TUBE PO PRN (05:45)
[2017-10-17] MEDS ORDERED: OXYCODONE/ACETAMINOPHEN 5-325 TAB PO PRN (05:45)
[2017-10-17] MEDS ORDERED: GLUCAGON FOR INJ 1 MG VIAL SQ PRN (05:45)
[2017-10-17] MEDS ORDERED: AZTREONAM CONSULT ACTIVE PRN (05:45)
[2017-10-17] MEDS ORDERED: DEXTROSE 50% 50 ML SYR IV PRN (05:45)
[2017-10-17] MEDS ORDERED: GLUCOSE 10 TABS/TUBE PO PRN (05:45)
[2017-10-17] MEDS ORDERED: PHARMACY GLYCEMIC MGMT CONSULT PRN (05:49)
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
[2017-10-17] MEDS ORDERED: VANCOMYCIN CONSULT ACTIVE PRN (06:00)
[2017-10-17] MEDS ORDERED: LEVOFLOXACIN CONSULT ACTIVE PRN (06:00)
[2017-10-17] MEDS ORDERED: AZTREONAM 2000 MG in DEXTROSE 5% 100 ML IV SCH (06:30)
[2017-10-17] MEDS: CLONIDINE HCL 0.1 MG TAB PO PRN (06:31)
--- NOTE | 2017-10-17 06:56 | DIAGNOSTIC IMAGING REPORT ---
(CHEST) THORAX WITH CT DOSE: HISTORY: Dyspnea CHEST PAIN SOB TECHNIQUE: Multiaxial CT images of the chest were performed following the intravenous administration of contrast. A dose lowering technique was utilized adhering to the principles of ALARA. COMPARISON: None. FINDINGS: Bilateral perihilar infiltrative change. As primarily is in the upper lobe and mid lung distribution pattern. Bibasilar atelectasis. Bilateral pleural effusions. Heart is mildly enlarged. Several nonspecific reactive nodes in the mediastinal and hilar region measuring to 1.2 cm. Trace chest wall edematous change possibly the base of the minimal anasarca. Gallstones within the gallbladder lumen. Diffuse pancreatic calcifications. IMPRESSION: 1. Bilateral perihilar infiltrative change versus atypical pulmonary edematous change. 2. Bilateral pleural effusions with bibasilar atelectasis. 3. Several indeterminate mediastinal and/or hilar nodes measuring up to 1.2 cm. 3. Gallstones. 4. Potential mild body wall anasarca. The above report was generated using voice recognition software. It may contain grammatical, syntax or spelling errors. Electronically signed by: Scottie Peter M.D. 10/17/2017 6:54 AM Dictated Date/Time: 10/17/2017 6:50 AM
[2017-10-17] MEDS: LEVALBUTEROL 0.63MG/3 ML NEB INH SCH ×3 (07:10→20:49)
--- NOTE | 2017-10-17 07:28 | DIAGNOSTIC IMAGING REPORT ---
CHEST 2 VIEWS ROUTINE CLINICAL HISTORY: Shortness of breath. COMPARISON STUDY: Chest radiograph October 08, 2015. FINDINGS: Cardiomediastinal silhouette is stable. A vascular stent projects over the left axilla. Small bilateral pleural effusions are noted. There is no pneumothorax. There are perihilar and bibasilar opacities. IMPRESSION: 1. Perihilar and bibasilar opacities with mild interstitial thickening. Pulmonary edema is favored however bilateral pneumonia could appear similar. 2. Small bilateral pleural effusions. Electronically signed by: Samir Dougherty M.D. 10/17/2017 7:27 AM Dictated Date/Time: 10/17/2017 7:23 AM
[2017-10-17] MEDS: CALCIUM ACETATE 667MG GELCAP PO SCH ×3 (07:35→19:13)
[2017-10-17] MEDS: CEROVITE ADV FORMULA TAB PO SCH (07:36)
--- NOTE | 2017-10-17 07:55 | NUR ---
A: BP meds held for dialysys this morning.
--- NOTE | 2017-10-17 08:00 | NUR ---
A: Patient alert and oriented, complains of SOB with any movement or activity. Denies pain. Airway patent on 1 liter O2, 99%. BP elevated this morning at 190/92, upon recheck 187/72. Metoprolol administered. Will recheck. NSR on monitor. Patient will go to dialysis this morning. Will continue to monitor patients overall status.
[2017-10-17] MEDS: PSYLLIUM 58.6% PWD PACK PO SCH (08:01)
[2017-10-17] MEDS: BUMETANIDE 1 MG TAB PO SCH (08:03)
[2017-10-17] MEDS: METOPROLOL TARTRATE 50 MG TAB PO SCH ×2 (08:03→21:07)
[2017-10-17] MEDS: INSULIN ASPART 100 UNITS/ML 3 ML PEN SC SCH ×4 (08:09→21:12)
[2017-10-17] MEDS: LISINOPRIL 40 MG TAB PO SCH (08:09)
[2017-10-17] MEDS: INSULIN GLARGINE SOLOSTAR 100 UNITS/ML 3 ML PEN SC SCH (08:15)
--- NOTE | 2017-10-17 08:58 | Pharmacy Progress Note ---
Glycemic Control Intl Consult Date of Service Oct 17, 2017. Scope Glycemic Pharmacist consulted by Dr Agrawal on 10/17/17 for glycemic control and to write orders per [facility] inpatient glycemic control protocol Objective Weight (Kilograms): 56.100 Accuchecks BSG (last 24hrs): Test 10/17/17 01:30 10/17/17 07:45 Random Glucose 181 mg/dl (70-99) Bedside Glucose 186 mg/dl (70-90) Laboratory Data (last 24hrs) Test 10/17/17 01:30 Anion Gap 12.0 mmol/L BUN/Creatinine Ratio 8.2 Blood Urea Nitrogen 64 mg/dl Creatinine 7.74 mg/dl Potassium Level 3.2 mmol/L Sodium Level 134 mmol/L White Blood Count 12.53 K/uL Red Blood Count 3.69 M/uL Hemoglobin 11.5 g/dL Hematocrit 34.6 % Mean Corpuscular Volume 93.8 fL Mean Corpuscular Hemoglobin 31.2 pg Mean Corpuscular Hemoglobin Concent 33.2 g/dl Platelet Count 274 K/uL Mean Platelet Volume 8.5 fL Neutrophils (%) (Auto) 89.5 % Lymphocytes (%) (Auto) 5.7 % Monocytes (%) (Auto) 4.5 % Eosinophils (%) (Auto) 0.0 % Basophils (%) (Auto) 0.1 % Neutrophils # (Auto) 11.21 K/uL Lymphocytes # (Auto) 0.72 K/uL Monocytes # (Auto) 0.56 K/uL Eosinophils # (Auto) 0.00 K/uL Basophils # (Auto) 0.01 K/uL Recent Pertinent Medications Outpatient Anti-diabetic Regimen: * Lantus 7 units SQ daily * Novolog SQ with meals (1 units for every 7 grams of carbohydrate - no correction) * A1c = 7.4 % 08/25/17 Risk Factors for Insulin Resistance: * Infection: b/l pnx -> empiric vanco, aztreonam, levofloxacin IV * Diet: T1DM, renal Assessment & Plan ASSESSMENT: * Ms Turner is a 67 yr old T1DM female admitted with bilateral pneumonia. * h/o ESRD on HD (M-W-F), HTN, and recent admission for ruptured appendicitis * During previous admission in August of this year, she required a reduced dose of Lantus d/t am hypoglycemia. * Will decrease basal insulin ~30% and titrate to goal fasting BSG. * Will slightly tighten bolus insulin parameters. I am hesitant to use patient' s home carb ratio of 7 at this time. We have not seen the effect of her current CR per she has consumed minimal carbs since admission. PLAN FOR INPATIENT GLYCEMIC CONTROL: * Basal insulin * Lantus 5 units SQ qAM * Bolus Insulin * NOVOLOG per scale ACHS or Q6hrs while NPO * Goal Range: Low 120 mg/dL - High 160 mg/dL * Correction Factor: 30 mg/dL/unit * Nutritional / Prandial insulin per carb ratio of 1 unit per 10 grams CHO consumed DISCHARGE PLANNING * Recent A1c of 7.4 % * Patient can likely resume outpatient regimen on discharge, unless she experiences hypoglycemia at home * Continue to titrate insulin dosing per outpatient provider Thank you.
[2017-10-17] MEDS ORDERED: INSULIN GLARGINE SOLOSTAR 100 UNITS/ML 3 ML PEN SC SCH (09:00)
[2017-10-17] MEDS ORDERED: CALCIUM CARBONATE 500 MG CHEWABLE PO SCH (09:00)
[2017-10-17] MEDS ORDERED: CALCIUM CARBONATE 500 MG CHEWABLE PO PRN (09:53)
[2017-10-17 10:01] LABS: INFLUENZA A PCR Neg for Influ A (NEG); INFLUENZA B PCR Neg for Influ B (NEG)
--- NOTE | 2017-10-17 10:35 | Pharmacy Progress Note ---
Pharmacy Abx Initial Consult Date of Service Oct 17, 2017. Pharmacy Dosing Scope Date of Consult: 10/17/17 Consultation requested by: Dr. Agrawal Pharmacy is consulted to initiate Vancomycin, Aztreonam, and levaquin IV dosing therapy, order appropriate labs and adjust drug dose/frequency. Subjective The patient is a 67 year old female admitted on Oct 17, 2017 at 04:25. Objective Height (Feet): 5 Height (Inches): 4.00 Weight (Kilograms): 56.100 Vital Signs (Past 12Hrs) Vital Signs Past 12 Hours Date Time Temp Pulse Resp B/P (MAP) Pulse Ox O2 Delivery O2 Flow Rate FiO2 10/17/17 08:02 36.8 64 16 190/75 (113) 94 Nasal Cannula 2.0 10/17/17 08:00 99 Nasal Cannula 1.0 10/17/17 07:14 71 16 94 Nasal Cannula 2.0 10/17/17 06:03 36.5 74 20 190/92 99 Nasal Cannula 1.0 10/17/17 05:03 37.2 70 20 173/77 92 10/17/17 04:57 70 173/77 92 Room Air 10/17/17 03:38 69 174/75 96 Room Air 10/17/17 00:32 37.2 75 20 181/84 95 Room Air Lab Results (24Hrs) Laboratory Tests (24 Hours) Test 10/17/17 01:30 White Blood Count 12.53 K/uL (4.8-10.8) H Red Blood Count 3.69 M/uL (4.2-5.4) L Hemoglobin 11.5 g/dL (12.0-16.0) L Hematocrit 34.6 % (37-47) L Mean Corpuscular Volume 93.8 fL (80-100) Mean Corpuscular Hemoglobin 31.2 pg (25-34) Mean Corpuscular Hemoglobin Concent 33.2 g/dl (32-36) Platelet Count 274 K/uL (130-400) Mean Platelet Volume 8.5 fL (7.4-10.4) Neutrophils (%) (Auto) 89.5 % Lymphocytes (%) (Auto) 5.7 % Monocytes (%) (Auto) 4.5 % Eosinophils (%) (Auto) 0.0 % Basophils (%) (Auto) 0.1 % Neutrophils # (Auto) 11.21 K/uL (1.4-6.5) H Lymphocytes # (Auto) 0.72 K/uL (1.2-3.4) L Monocytes # (Auto) 0.56 K/uL (0.11-0.59) Eosinophils # (Auto) 0.00 K/uL (0-0.5) Basophils # (Auto) 0.01 K/uL (0-0.2) Micro Results Date/Time Source Procedure Growth Status 10/17/17 06:25 Nasal MRSA DNA Surveillance Screen Pending Received Risk Factors for Resistance * Hospitalization for 48 hours or more within the past 90 days: pt admitted for appendicitis 08/2017 * Chronic dialysis within the past 30 days * Antimicrobial use within the last 90 days: cipro/flagyl 08/2017 Assessment & Plan Assessment * 67 year old female admitted for shortness of breath x 1-2 days, diagnosed with bilateral pneumonia. * She has DM Type I and ESRD-HD schedule MWF. She missed yesterday's HD session and will have it today. * Nasal swab negative, will continue vanc for now per Dr. Monroy. * Sputum cultures ordered. Plan Vancomycin, aztreonam, and levaquin for treatment of pneumonia. Vancomycin IV * Loading dose: 1000 mg (18 mg/kg) * Goal trough level for pneumonia : 15 to 20 mcg/mL * HD expected tomorrow. Random pre-HD level ordered for 10/18 with am labs * Pt will be dosed per levels. Aztreonam * 2 g bolus, then 500mg IV q 12 hours Levaquin * 750mg IV x 1, then 500mg IV q 48 hours. Pharmacy will continue to follow and will adjust dose/frequency as necessary. Thank you.
[2017-10-17] MEDS ORDERED: PARICALCITOL 5 MCG/ML VIAL (ZEMPLAR) IV. ONE (12:00)
[2017-10-17] MEDS ORDERED: HEPARIN SOD (PORCINE) 1000 UNIT/ML 10 ML VIAL IV SCH (12:00)
--- NOTE | 2017-10-17 12:00 | NUR ---
A: Patient resting quietly in bed, no current complaints. Denies pain. O2 titrated to 1 liter, 99%. VSS, BP improved to 164/72. BSG 189. Patient going to dialysis at 1400 today. Will continue to monitor patients overall status.
--- NOTE | 2017-10-17 12:40 | NUR ---
ID: Patient at baseline is independent with all ADL's. She lives at home with her and plans to return there when medically stable. Discharge date uncertain at present. Will continue to monitor patients overall status.
[2017-10-17] MEDS ORDERED: POTASSIUM CHLORIDE 20 MEQ TABCR PO ONE (13:00)
[2017-10-17] MEDS: HEPARIN SOD (PORCINE) 1000 UNIT/ML 10 ML VIAL IV SCH ×2 (13:00→14:00)
--- NOTE | 2017-10-17 14:38 | Progress Note ---
Medicine Progress Note Date & Time of Visit: Oct 17, 2017 at 14:21. Subjective 67 year old diabetic female with ESRD on HD presents with acute onset SOB and evidence of fluid overload. She is feeling better today from a breathing standpoint but is still requiring oxygen at this time. She denies any pain. She reports swelling 2/2/ amlodipine use in her legs. Her SOB was acute overnight and currently she has orthopnea and feels chest congestion, however, prior to this she had no issues with orthopnea or exercise intolerance. She reports walking through the grocery store without stopping without issue on a regular basis. She did miss HD yesterday 2/2 a car issue. Chronic stool incontinence and min UOP. She denies other issues. Objective Last 8 Hrs Date Time Temp Pulse Resp B/P (MAP) Pulse Ox O2 Delivery O2 Flow Rate FiO2 10/17/17 12:01 99 Nasal Cannula 1.0 10/17/17 11:35 36.8 63 26 164/73 (103) 99 Nasal Cannula 2.0 10/17/17 08:02 36.8 64 16 190/75 (113) 94 Nasal Cannula 2.0 10/17/17 08:00 99 Nasal Cannula 1.0 10/17/17 07:14 71 16 94 Nasal Cannula 2.0 Physical Exam: GEN: WNWD, in no acute distress, alert and appropriate, no respiratory distress , no conversational dyspnea. HEENT: NC/AT, pupils are rqual and round bilaterally, normal sclerae, MMM CARDIO: reg rate, S1/2 heard without m/g/r LUNGS: crackles at the bases, rales or wheezes, good diaphragmatic excursion ABD: soft, non-tender, non-distended, no rebound or guarding, +BS EXTREMITY: RP and DP palpable 2+ bilat, 2+ LE edema bilaterally up to mid-shins , extremities are warm and well-perfused NEURO: CN 2-12 grossly intact, no gross focal deficits. MUSC: moves all extremities equally, no gross focal deficits SKIN: warm and dry Laboratory Results: 10/17/17 01:30 Red Blood Count 3.69, Mean Corpuscular Volume 93.8, Mean Corpuscular Hemoglobin 31.2, Mean Corpuscular Hemoglobin Concent 33.2, Mean Platelet Volume 8.5, Neutrophils (%) (Auto) 89.5, Lymphocytes (%) (Auto) 5.7, Monocytes (%) (Auto) 4.5, Eosinophils (%) (Auto) 0.0, Basophils (%) (Auto) 0.1, Neutrophils # (Auto) 11.21, Lymphocytes # (Auto) 0.72, Monocytes # (Auto) 0.56, Eosinophils # (Auto) 0.00, Basophils # (Auto) 0.01 10/17/17 01:30 Test 10/17/17 00:00 10/17/17 01:30 10/17/17 11:38 Influenza Type A (RT-PCR) Neg for Influ A (NEG) Influenza Type B (RT-PCR) Neg for Influ B (NEG) White Blood Count 12.53 K/uL (4.8-10.8) Red Blood Count 3.69 M/uL (4.2-5.4) Hemoglobin 11.5 g/dL (12.0-16.0) Hematocrit 34.6 % (37-47) Mean Corpuscular Volume 93.8 fL (80-100) Mean Corpuscular Hemoglobin 31.2 pg (25-34) Mean Corpuscular Hemoglobin Concent 33.2 g/dl (32-36) Platelet Count 274 K/uL (130-400) Mean Platelet Volume 8.5 fL (7.4-10.4) Neutrophils (%) (Auto) 89.5 % Lymphocytes (%) (Auto) 5.7 % Monocytes (%) (Auto) 4.5 % Eosinophils (%) (Auto) 0.0 % Basophils (%) (Auto) 0.1 % Neutrophils # (Auto) 11.21 K/uL (1.4-6.5) Lymphocytes # (Auto) 0.72 K/uL (1.2-3.4) Monocytes # (Auto) 0.56 K/uL (0.11-0.59) Eosinophils # (Auto) 0.00 K/uL (0-0.5) Basophils # (Auto) 0.01 K/uL (0-0.2) RDW Standard Deviation 54.6 fL (36.4-46.3) RDW Coefficient of Variation 16.1 % (11.5-14.5) Immature Granulocyte % (Auto) 0.2 % Immature Granulocyte # (Auto) 0.03 K/uL (0.00-0.02) Red Blood Cell Morphology Unremarkable Anion Gap 12.0 mmol/L (3-11) Est Creatinine Clear Calc Drug Dose 6.0 ml/min Estimated GFR () 5.6 Estimated GFR (Non- 4.9 BUN/Creatinine Ratio 8.2 (10-20) Calcium Level 7.2 mg/dl (8.5-10.1) Troponin I 0.047 ng/ml (0-0.045) Pro-B-Type Natriuretic Peptide > 88665 pg/ml (0-900) Bedside Glucose 189 mg/dl (70-90) Date/Time Source Procedure Growth Status 10/17/17 06:25 Nasal MRSA DNA Surveillance Screen - Final Specimen Negative for MRSA by DNA Probe Complete Last 24 Hours Test 10/17/17 00:00 10/17/17 01:30 10/17/17 07:45 10/17/17 11:38 Influenza Type A (RT-PCR) Neg for Influ A Influenza Type B (RT-PCR) Neg for Influ B White Blood Count 12.53 K/uL Red Blood Count 3.69 M/uL Hemoglobin 11.5 g/dL Hematocrit 34.6 % Mean Corpuscular Volume 93.8 fL Mean Corpuscular Hemoglobin 31.2 pg Mean Corpuscular Hemoglobin Concent 33.2 g/dl Platelet Count 274 K/uL Mean Platelet Volume 8.5 fL Neutrophils (%) (Auto) 89.5 % Lymphocytes (%) (Auto) 5.7 % Monocytes (%) (Auto) 4.5 % Eosinophils (%) (Auto) 0.0 % Basophils (%) (Auto) 0.1 % Neutrophils # (Auto) 11.21 K/uL Lymphocytes # (Auto) 0.72 K/uL Monocytes # (Auto) 0.56 K/uL Eosinophils # (Auto) 0.00 K/uL Basophils # (Auto) 0.01 K/uL RDW Standard Deviation 54.6 fL RDW Coefficient of Variation 16.1 % Immature Granulocyte % (Auto) 0.2 % Immature Granulocyte # (Auto) 0.03 K/uL Red Blood Cell Morphology Unremarkable Sodium Level 134 mmol/L Potassium Level 3.2 mmol/L Chloride Level 102 mmol/L Carbon Dioxide Level 20 mmol/L Anion Gap 12.0 mmol/L Blood Urea Nitrogen 64 mg/dl Creatinine 7.74 mg/dl Est Creatinine Clear Calc Drug Dose 6.0 ml/min Estimated GFR () 5.6 Estimated GFR (Non- 4.9 BUN/Creatinine Ratio 8.2 Random Glucose 181 mg/dl Calcium Level 7.2 mg/dl Troponin I 0.047 ng/ml Pro-B-Type Natriuretic Peptide > 56727 pg/ml Bedside Glucose 186 mg/dl 189 mg/dl Date/Time Source Procedure Growth Status 10/17/17 06:25 Nasal MRSA DNA Surveillance Screen - Final Specimen Negative for MRSA by DNA Probe Complete Assessment & Plan 67 year old diabetic female with ESRD on HD presents with acute onset SOB and evidence of fluid overload. She is feeling better today from a breathing standpoint but is still requiring oxygen at this time. She denies any pain. She reports swelling 2/2/ amlodipine use in her legs. Her SOB was acute overnight and currently she has orthopnea and feels chest congestion, however, prior to this she had no issues with orthopnea or exercise intolerance. She reports walking through the grocery store without stopping without issue on a regular basis. She did miss HD yesterday 2/2 a car issue. Chronic stool incontinence and min UOP. She denies other issues. 1. Hypoxia-etiologies include but not limited to: a) acute volume overload-pt has a h/o heart failure exacerbation once in the past but also missed a HD session yesterday. Nephro consulted to help manage fluid through dialysis. Pt is also on daily Bumex PO and has some incontinence. Will discuss with Nephrology if it may be useful to give IV Bumex while in the hospital. UOP is minimal. b) findings consistent with poss HCAP (recent hospital admission)-f/u sputum culture, bronchodilator q6h, cont broad spectrum abx. 2. DMI-ISS/Lantus with carb coverage. Appreciate glycemic pharmacist input. 3. HTN-uncontrolled this morning but improved with Metoprolol, lisinopril, hydralazine and PRN clonidine. Going to HD now so will address further when she returns. 4. LE edema-recent adverse reaction to amlodipine as outpatient which caused significant edema. Stopped this just 1 week ago with improvement since then. Will place TEDs now. 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 Graves disease-not on medications 7. Sjorgen's 8. von Willebrand Deficiency 9/. Hypokalemia-replace PO cautiously. PRP in am. DVT proph-heparin Full Code Dispo-cont telemetry monitoring DO [facility] Consultants: Nephro Current Inpatient Medications: Current Inpatient Medications Medications (Trade) Dose Ordered Sig/Eduardo Route Start Time Stop Time Status Last Admin Dose Admin Ioversol (Optiray 320) 100 ml UD PRN IV 10/17/17 04:00 10/21/17 03:59 Levalbuterol (Xopenex 0.63 Mg/ 3 Ml Neb) 0.63 mg Q6R INH 10/17/17 05:45 11/16/17 05:44 10/17/17 07:10 0.63 MG Aztreonam (Consult) 1 ea DAILY PRN N/A 10/17/17 05:45 11/16/17 05:44 Bumetanide (Bumex Tab) 2 mg DAILY PO 10/17/17 09:00 11/16/17 08:59 Calcium Acetate (Phoslo Cap) 667 mg BID PRN PO 10/17/17 05:45 11/16/17 05:44 Calcium Acetate (Phoslo Cap) 2,001 mg AC PO 10/17/17 06:30 11/16/17 06:29 10/17/17 12:02 2,001 MG Lisinopril (Zestril Tab) 40 mg DAILY PO 10/17/17 09:00 11/16/17 08:59 Metoprolol Tartrate (Lopressor Tab) 50 mg BID PO 10/17/17 09:00 11/16/17 08:59 10/17/17 08:03 50 MG Multivitamins/ Minerals (Multivitamin W/ Minerals Tab) 1 tab DAILY PO 10/17/17 09:00 11/16/17 08:59 10/17/17 07:36 1 TAB Oxycodone/ Acetaminophen (Percocet 5-325mg Tab) 1 tab Q6H PRN PO 10/17/17 05:45 10/31/17 05:44 Psyllium Hydrophilic Mucilloid (Metamucil Powder) 1 pkt DAILY PO 10/17/17 09:00 11/16/17 08:59 Acetaminophen (Tylenol Tab) 650 mg Q4H PRN PO 10/17/17 05:45 11/16/17 05:44 Insulin Aspart (novoLOG ASPART) SLIDING SCALE If C... ACHS SC 10/17/17 06:30 11/16/17 06:29 10/17/17 12:01 2 UNITS Glucose (Glucose 40% Gel) 15-30 GRAMS 15 GRAMS... UD PRN PO 10/17/17 05:45 11/16/17 05:44 Glucose (Glucose Chew Tab) 4-8 Tablets 4 Tabl... UD PRN PO 10/17/17 05:45 11/16/17 05:44 Dextrose (Dextrose 50% 50ML Syringe) 25-50ML OF 50% DW IV FOR... UD PRN IV 10/17/17 05:45 11/16/17 05:44 Glucagon (Glucagon Inj) 1 mg UD PRN SQ 10/17/17 05:45 11/16/17 05:44 Miscellaneous Information (Consult Glycemic Management Pharmacy) 1 ea DAILY PRN N/A 10/17/17 05:49 11/16/17 05:48 Hydralazine HCl (Apresoline Tab) 25 mg BID PO 10/17/17 09:00 11/16/17 08:59 Clonidine HCl (Catapres Tab) 0.1 mg Q6H PRN PO 10/17/17 05:45 11/16/17 05:44 10/17/17 06:31 0.1 MG Levofloxacin (Consult) 1 ea UD PRN N/A 10/17/17 06:00 11/16/17 05:59 Vancomycin HCl (Consult) 1 ea UD PRN N/A 10/17/17 06:00 11/16/17 05:59 Insulin Glargine (Lantus Solostar Pen) 5 units QAM SC 10/17/17 09:00 11/16/17 08:59 10/17/17 08:15 5 UNITS Levofloxacin 500 mg/Prmx 100 ml @ 100 mls/hr Q48H IV 10/19/17 11:00 10/24/17 10:59 Aztreonam 500 mg/ Dextrose 55 ml @ 110 mls/hr Q12H IV 10/17/17 19:00 10/24/17 06:59 Calcium Carbonate (Tums Chew Tab) 1,000 mg DAILY PRN PO 10/17/17 09:53 1/27/18 08:59 Cholecalciferol (Vitamin D Tab) 1,000 inter.unit DAILY PO 10/18/17 09:00 11/17/17 08:59
--- NOTE | 2017-10-17 16:00 | NUR ---
A: Pt off floor at Dialysis at this time.
--- NOTE | 2017-10-17 16:21 | Nephrology Consultation ---
Nephrology Consultation Date & Providers Date of Consultation: Oct 17, 2017. Primary Care Provider: Sixto Bella M.D. Referring Provider: Reason for Consultation ESRD requiring HD History of Present Illness Mrs. Turner is a 67 year old white female who is seen at the request of Dr. Bo Agrawal to provide inpatient HD. Medical records in the EMR were reviewed and are summarized as follows: Mrs. Turner has ESRD on the basis of microvascular disease and hypertensive nephrosclerosis. She has been on IHD since 10/04. She currently dialyzes at [facility] (MWF 3.5 hrs F-180NR 3K 2.5Ca EDW 49 kg). Her medical history is significant for AODM, HTN and possibly von Willebrand's disease. Mrs. Turner was last dialyzed on Saturday due to the holiday. She missed her treatment yesterday due to automotive mechanical problems. Mrs. Turner presented to the hospital yesterday evening with complaints of a nonproductive cough and progressive dyspnea. CXR in ED revealed perihilar infiltrates concerning for pneumonia. Patient has been admitted for IV antibiotic therapy and inpatient HD. Past Medical/Surgical History Medical: # ESRD on MWF HD # HTN # PVD # AODM # ? von Willebrand's disease # Perforated sigmoid diverticulum managed conservatively 09/06 Surgical: # AVF Allergies Coded Allergies: Adhesives (Verified Allergy, Intermediate, RASH, 10/17/17) Amoxicillin (Verified Allergy, Intermediate, RASH, 10/17/17) Ampicillin (Verified Allergy, Intermediate, RASH, 10/17/17) Erythromycin (Verified Allergy, Intermediate, RASH, 10/17/17) Etodolac (Verified Allergy, Intermediate, RASH, 10/17/17) Penicillins (Verified Allergy, Intermediate, RASH, 10/17/17) Sulfa Antibiotics (Verified Allergy, Intermediate, RASH, 10/17/17) Aspirin (Verified Allergy, Mild, RASH, 10/17/17) Sevelamer (Verified Allergy, Mild, rash, 10/17/17) Inpatient Medications Current Inpatient Medications Medications (Trade) Dose Ordered Sig/Eduardo Route Start Time Stop Time Status Last Admin Dose Admin Ioversol (Optiray 320) 100 ml UD PRN IV 10/17/17 04:00 10/21/17 03:59 Levalbuterol (Xopenex 0.63 Mg/ 3 Ml Neb) 0.63 mg Q6R INH 10/17/17 05:45 11/16/17 05:44 10/17/17 07:10 0.63 MG Aztreonam (Consult) 1 ea DAILY PRN N/A 10/17/17 05:45 11/16/17 05:44 Bumetanide (Bumex Tab) 2 mg DAILY PO 10/17/17 09:00 11/16/17 08:59 Calcium Acetate (Phoslo Cap) 667 mg BID PRN PO 10/17/17 05:45 11/16/17 05:44 Calcium Acetate (Phoslo Cap) 2,001 mg AC PO 10/17/17 06:30 11/16/17 06:29 10/17/17 12:02 2,001 MG Lisinopril (Zestril Tab) 40 mg DAILY PO 10/17/17 09:00 11/16/17 08:59 Metoprolol Tartrate (Lopressor Tab) 50 mg BID PO 10/17/17 09:00 11/16/17 08:59 10/17/17 08:03 50 MG Multivitamins/ Minerals (Multivitamin W/ Minerals Tab) 1 tab DAILY PO 10/17/17 09:00 11/16/17 08:59 10/17/17 07:36 1 TAB Oxycodone/ Acetaminophen (Percocet 5-325mg Tab) 1 tab Q6H PRN PO 10/17/17 05:45 10/31/17 05:44 Psyllium Hydrophilic Mucilloid (Metamucil Powder) 1 pkt DAILY PO 10/17/17 09:00 11/16/17 08:59 Acetaminophen (Tylenol Tab) 650 mg Q4H PRN PO 10/17/17 05:45 11/16/17 05:44 Insulin Aspart (novoLOG ASPART) SLIDING SCALE If C... ACHS SC 10/17/17 06:30 11/16/17 06:29 10/17/17 12:01 2 UNITS Glucose (Glucose 40% Gel) 15-30 GRAMS 15 GRAMS... UD PRN PO 10/17/17 05:45 11/16/17 05:44 Glucose (Glucose Chew Tab) 4-8 Tablets 4 Tabl... UD PRN PO 10/17/17 05:45 11/16/17 05:44 Dextrose (Dextrose 50% 50ML Syringe) 25-50ML OF 50% DW IV FOR... UD PRN IV 10/17/17 05:45 11/16/17 05:44 Glucagon (Glucagon Inj) 1 mg UD PRN SQ 10/17/17 05:45 11/16/17 05:44 Miscellaneous Information (Consult Glycemic Management Pharmacy) 1 ea DAILY PRN N/A 10/17/17 05:49 11/16/17 05:48 Hydralazine HCl (Apresoline Tab) 25 mg BID PO 10/17/17 09:00 11/16/17 08:59 Clonidine HCl (Catapres Tab) 0.1 mg Q6H PRN PO 10/17/17 05:45 11/16/17 05:44 10/17/17 06:31 0.1 MG Levofloxacin (Consult) 1 ea UD PRN N/A 10/17/17 06:00 11/16/17 05:59 Vancomycin HCl (Consult) 1 ea UD PRN N/A 10/17/17 06:00 11/16/17 05:59 Insulin Glargine (Lantus Solostar Pen) 5 units QAM SC 10/17/17 09:00 11/16/17 08:59 10/17/17 08:15 5 UNITS Levofloxacin 500 mg/Prmx 100 ml @ 100 mls/hr Q48H IV 10/19/17 11:00 10/24/17 10:59 Aztreonam 500 mg/ Dextrose 55 ml @ 110 mls/hr Q12H IV 10/17/17 19:00 10/24/17 06:59 Calcium Carbonate (Tums Chew Tab) 1,000 mg DAILY PRN PO 10/17/17 09:53 11/16/17 08:59 Cholecalciferol (Vitamin D Tab) 1,000 inter.unit DAILY PO 10/18/17 09:00 11/17/17 08:59 Heparin Sodium (Porcine) (Heparin Sq 5000 Unit/0.5ml) 5,000 unit Q8 SQ 10/17/17 22:00 11/16/17 21:59 UNV Family History No pertinent family history Negative for CKD/ESRD Social History Smoking Status: Never Smoker Smokeless Tobacco Use: No Drug Use: none Marital Status: 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 . Retired. Never a smoker Review of Systems Constitutional: No fever Respiratory: + cough, + dyspnea on exertion, No sputum Cardiovascular: No chest pain Abdomen: No pain, No nausea, No vomiting Genitourinary - Female: No dysuria, No hematuria A complete review of systems was performed. Pertinent positives are noted above. All other systems are negative. Physical Exam Date Time Temp Pulse Resp B/P (MAP) Pulse Ox O2 Delivery O2 Flow Rate FiO2 10/17/17 14:40 60 147/71 10/17/17 14:30 36.8 61 150/71 (97) 10/17/17 12:01 99 Nasal Cannula 1.0 10/17/17 11:35 36.8 63 26 164/73 (103) 99 Nasal Cannula 2.0 10/17/17 08:02 36.8 64 16 190/75 (113) 94 Nasal Cannula 2.0 10/17/17 08:00 99 Nasal Cannula 1.0 10/17/17 07:14 71 16 94 Nasal Cannula 2.0 10/17/17 06:03 36.5 74 20 190/92 99 Nasal Cannula 1.0 10/17/17 05:03 37.2 70 20 173/77 92 10/17/17 04:57 70 173/77 92 Room Air 10/17/17 03:38 69 174/75 96 Room Air 10/17/17 00:32 37.2 75 20 181/84 95 Room Air General Appearance: no apparent distress, + thin (frail appearing) Head: atraumatic (temporal muscle wasting) Eyes: PERRL, EOMI Neck: no adenopathy Respiratory/Chest: + crackles (at bases bilaterally) Cardiovascular: regular rate, rhythm Abdomen/GI: normal bowel sounds, non tender, soft Extremities/Musculoskelatal: no calf tenderness, no pedal edema, + pertinent finding (AVF + bruit) Neurologic/Psych: alert, oriented x 3 Laboratory Results Last 24 Hours Test 10/17/17 00:00 10/17/17 01:30 10/17/17 07:45 10/17/17 11:38 Influenza Type A (RT-PCR) Neg for Influ A Influenza Type B (RT-PCR) Neg for Influ B White Blood Count 12.53 K/uL Red Blood Count 3.69 M/uL Hemoglobin 11.5 g/dL Hematocrit 34.6 % Mean Corpuscular Volume 93.8 fL Mean Corpuscular Hemoglobin 31.2 pg Mean Corpuscular Hemoglobin Concent 33.2 g/dl Platelet Count 274 K/uL Mean Platelet Volume 8.5 fL Neutrophils (%) (Auto) 89.5 % Lymphocytes (%) (Auto) 5.7 % Monocytes (%) (Auto) 4.5 % Eosinophils (%) (Auto) 0.0 % Basophils (%) (Auto) 0.1 % Neutrophils # (Auto) 11.21 K/uL Lymphocytes # (Auto) 0.72 K/uL Monocytes # (Auto) 0.56 K/uL Eosinophils # (Auto) 0.00 K/uL Basophils # (Auto) 0.01 K/uL RDW Standard Deviation 54.6 fL RDW Coefficient of Variation 16.1 % Immature Granulocyte % (Auto) 0.2 % Immature Granulocyte # (Auto) 0.03 K/uL Red Blood Cell Morphology Unremarkable Prothrombin Time 10.7 SECONDS Prothromb Time International Ratio 1.0 Sodium Level 134 mmol/L Potassium Level 3.2 mmol/L Chloride Level 102 mmol/L Carbon Dioxide Level 20 mmol/L Anion Gap 12.0 mmol/L Blood Urea Nitrogen 64 mg/dl Creatinine 7.74 mg/dl Est Creatinine Clear Calc Drug Dose 6.0 ml/min Estimated GFR () 5.6 Estimated GFR (Non- 4.9 BUN/Creatinine Ratio 8.2 Random Glucose 181 mg/dl Calcium Level 7.2 mg/dl Troponin I 0.047 ng/ml Pro-B-Type Natriuretic Peptide > 48606 pg/ml Bedside Glucose 186 mg/dl 189 mg/dl Impression (1) ESRD (end stage renal disease) on dialysis (2) Pneumonia (3) Benign hypertension with ESRD (end-stage renal disease) (4) Von Willebrand disease Recommendations END STAGE RENAL DISEASE: -- Will provide HD today. Orders entered into EMR and HD RN notified -- Continue oral Bumex. Patient still makes urine HYPERTENSION: -- Blood pressure is acceptable. Continue Metoprolol and Lisinopril ANEMIA: -- Hgb is > 11. Hold KISHA and monitor CKD-BMD: -- Continue oral PO4 binder and calcitriol ID: -- Probable pneumonia. Levaquin & Aztreonam are appropriately dosed for ESRD on HD
--- NOTE | 2017-10-17 18:53 | NUR ---
A: Pt returned from Dialysis to 284-1 at this time. VSS on 1L NC. Lung sounds clear diminished. Pt denies any pain or SOB at this time. monitoring specialist applied. Family at bedside. Upon return pt BSG 64, pt asymptomatic. 4 glucose tabs given per protocol recheck of 83, and tray ordered from kitchen at this time. Call pimentel within reach, will continue to monitor.
[2017-10-17] MEDS: AZTREONAM IV 500 MG in DEXTROSE 5% 50ML 50 ML IV SCH (19:13)
--- NOTE | 2017-10-17 20:00 | NUR ---
A: Pt resting comfortably in bed upon assessment. Continue to be 99% SpO2 on 1L NC pt states she feels comfortable and is not ready to try RA. Pt denies any pain or SOB. Pt supervision oob and encouraged to ring for assistance. Steady on feet to bsc. Call pimentel within reach. Will continue to monitor.
[2017-10-17] MEDS: HEPARIN SOD 5000 UNIT/0.5 ML CARP SQ SCH (21:14)
[2017-10-18] VITALS (20 sets, daily range): BP systolic 148–193; BP diastolic 64–76; PULSE 55–74; TEMP 36.5–37.2; O2SAT 95–99
[2017-10-18] MEDS: CLONIDINE HCL 0.1 MG TAB PO PRN (01:32)
[2017-10-18] MEDS: LEVALBUTEROL 0.63MG/3 ML NEB INH SCH ×4 (02:04→20:08)
--- NOTE | 2017-10-18 04:00 | NUR ---
A: Assessment completed see EMR. Pt is resting at this time with no complaints. Vitals WNL. Pt presents with sinus rhythm on the monitor. Call pimentel within reach and pt encouraged to ring for assistance.
[2017-10-18] MEDS: HEPARIN SOD 5000 UNIT/0.5 ML CARP SQ SCH ×3 (06:00→21:11)
[2017-10-18] MEDS: CALCIUM ACETATE 667MG GELCAP PO SCH ×3 (06:03→17:44)
[2017-10-18] MEDS: AZTREONAM IV 500 MG in DEXTROSE 5% 50ML 50 ML IV SCH (07:00)
[2017-10-18 07:24] LABS: HEMATOCRIT 26.8 % (37-47); HEMOGLOBIN 8.7 g/dL (12.0-16.0); MEAN CELL VOLUME 94.7 fL (80-100); MEAN CORPUSCULAR HEMOGLOBIN 30.7 pg (25-34); MEAN CORPUSCULAR HGB CONC 32.5 g/dl (32-36); MEAN PLATELET VOLUME 8.5 fL (7.4-10.4); PLATELET COUNT 176 K/uL (130-400); RED CELL DISTRIBUTION WIDTH CV 16.4 % (11.5-14.5); RED CELL DISTRIBUTION WIDTH SD 56.3 fL (36.4-46.3); WHITE BLOOD COUNT 4.82 K/uL (4.8-10.8)
[2017-10-18 07:36] LABS: CALCIUM 7.5 mg/dl (8.5-10.1); CREATININE 4.94 mg/dl (0.60-1.20); PHOSPHORUS 5.6 mg/dl (2.5-4.9); POTASSIUM 3.9 mmol/L (3.5-5.1)
[2017-10-18] MEDS: INSULIN ASPART 100 UNITS/ML 3 ML PEN SC SCH ×4 (08:32→21:11)
[2017-10-18] MEDS: INSULIN GLARGINE SOLOSTAR 100 UNITS/ML 3 ML PEN SC SCH (08:33)
[2017-10-18] MEDS: PSYLLIUM 58.6% PWD PACK PO SCH (09:00)
[2017-10-18] MEDS: METOPROLOL TARTRATE 50 MG TAB PO SCH ×2 (09:00→19:50)
[2017-10-18] MEDS ORDERED: VANCOMYCIN IV 1,000 MG in SODIUM CHLORIDE 0.9% 250ML 250 ML IV STA (09:10)
--- NOTE | 2017-10-18 09:13 | Clinical Documentation Query ---
KRISTI German : CLINICAL DOCUMENTATION QUERY Patient is a 67 year old female admitted for evaluation and treatment of SOB and fluid overload in the setting of ESRD and HCAP. She is being treated with IV Aztreonam and Levaquin. Sputum culture yet to be collected. She is being provided supplemental oxygen, bronchodilators, and monitored on telemetry In your clinical opinion is this patient being managed for: (x ) (Possible/Suspected) Gram negative HCAP ( ) Not Agree ( ) Other explanation of clinical findings (Please Explain) ( ) Unable to determine (Please Define) ( ) Need to Discuss The medical record reflects the following clinical findings, treatment, and risk factors. Clinical Indicators: As above Treatment: IV Aztreonam, IV Levaquin Risk Factors: ESRD, recent hospitalization, recent antibiotic use Please clarify and document your clinical opinion in the progress notes and discharge summary. Terms such as "probable", "suspected", "likely", "questionable", "possible", or "still to be ruled out" are acceptable. IF IN AGREEMENT, YOU MUST DOCUMENT ABOVE DIAGNOSTIC STATEMENT IN DAILY PROGRESS NOTES AND DISCHARGE SUMMARY. This document is not part of the patient's record. Thank You, Bacilio Espitia, RN [phone]
[2017-10-18] MEDS ORDERED: EPOETIN ALFA 10,000 UNITS/ML VIAL IV. ONE (09:15)
--- NOTE | 2017-10-18 09:15 | NUR ---
A: Dr. Decker to patient bedside, patient will have short dialysis session today. Will plan to hold medications until after treatment. VSS.
--- NOTE | 2017-10-18 09:50 | Pharmacy Progress Note ---
Pharmacy Abx Dose Short Note Date of Service Oct 18, 2017. Assessment & Plan Vanco random came back subtherapeutic at 8.9mcg/mL for a possible HAP. Pt originally scheduled for HD on a MWF basis; however, she missed her session on 10/16/17. She was given HD 10/17/17 for roughly 3.5hrs which removed 2L of fluid. I spoke w Dr. Decker re: her HD schedule moving forward. He plans for another short session today, 10/18/17. Will order Vanco 1000mg (18mg/kg) for after dialysis today (nurse aware of plan). Per Dr. Decker, next dialysis will be scheduled for Saturday10/20/17 due to the holiday on Saturday. Will order a random lvl for Saturday10/20/17, pre HD lvl. Pharmacy will continue to follow and will adjust dose/frequency as necessary. Thank you.
[2017-10-18] MEDS ORDERED: HEPARIN SOD (PORCINE) 1000 UNIT/ML 10 ML VIAL IV SCH (10:00)
[2017-10-18] MEDS ORDERED: EPOETIN ALFA INJ 6,000 UNITS in SYRINGE 0 ML IV. SCH (10:00)
--- NOTE | 2017-10-18 10:12 | Pharmacy Progress Note ---
Pharmacy Glycemic Short Note 2 Date of Service Oct 18, 2017. OUTPATIENT DIABETIC REGIMEN: * Lantus 7 units SQ daily * Novolog SQ with meals (1 units for every 7 grams of carbohydrate - no correction) * A1c = 7.4 % 08/25/17 ASSESSMENT: * 67 yr old T1DM female admitted with bilateral pneumonia. * h/o ESRD on HD (M-W-F), HTN, and recent admission for ruptured appendicitis * During previous admission in August of this year, she required a reduced dose of Lantus d/t am hypoglycemia * Yesterday, a reduced dose of basal given (5 units instead of 7 units) which seems to be appropriate for now given fasting BSG 188 * Pt did have an episode of hypoglycemia with dinner so I will loosen Novolog slightly - this is already much looser then home carb ratio so we will have to monitor closely PLAN FOR INPATIENT GLYCEMIC CONTROL: * Continue: Basal insulin * Lantus 5 units SQ qAM * Loosen: Bolus Insulin * NOVOLOG per scale ACHS or Q6hrs while NPO * Goal Range: Low 120 mg/dL - High 160 mg/dL * Correction Factor: 35 mg/dL/unit * Nutritional / Prandial insulin per carb ratio of 1 unit per 15 grams CHO consumed DISCHARGE PLANNING * Recent A1c of 7.4 % * Patient can likely resume outpatient regimen on discharge, unless she experiences hypoglycemia at home * Continue to titrate insulin dosing per outpatient provider Thank you.
--- NOTE | 2017-10-18 10:31 | Nephrology Progress Note ---
Nephrology Progress Note Date of Service Oct 18, 2017. Chief Complaint ESRD requiring HD Subjective Mrs. Turner was seen & examined in her hospital room this am. She was dialyzed yesterday for 3.5 hours w/ 2 L UF. There were no complications. Mrs. Turner reports that her breathing has improved. She denies fever or productive cough this am. She notes that her regular dialysis days are MWF and would like to get back on schedule Review of Systems Constitutional: No fever Cardiovascular: No chest pain Respiratory: No dyspnea at rest Abdomen: No pain, No nausea, No vomiting Extremities: No leg edema A complete review of systems was performed. Pertinent positives are noted above. All other systems are negative. Vital Signs Last 8 Hrs Date Time Temp Pulse Resp B/P (MAP) Pulse Ox O2 Delivery O2 Flow Rate FiO2 10/18/17 08:00 98 Nasal Cannula 1.0 10/18/17 07:32 36.6 63 16 175/73 (107) 98 Nasal Cannula 2.0 10/18/17 05:18 36.5 58 18 148/64 (92) 99 Nasal Cannula 2.0 10/18/17 04:00 Nasal Cannula 1.0 Last Recorded Weight Weight (Kilograms): 55.000 Physical Exam General Appearance: no apparent distress Head: normocephalic, atraumatic Eyes: PERRL, EOMI Neck: no adenopathy Respiratory/Chest: lungs clear Cardiovascular: regular rate, rhythm Abdomen/GI: normal bowel sounds, non tender, soft Extremities/Musculoskelatal: no calf tenderness, no pedal edema, + pertinent finding (AVF + bruit) Neurologic/Psych: alert Family History No pertinent family history Negative for CKD/ESRD Social History Smokeless Tobacco Use: No Drug Use: none Marital Status: 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 . Retired. Never a smoker Laboratory Results Past 24 Hours 10/18/17 06:35 10/18/17 06:35 Test 10/17/17 11:38 10/17/17 19:07 10/17/17 19:36 10/17/17 23:46 Bedside Glucose 189 mg/dl (70-90) 64 mg/dl (70-90) 83 mg/dl (70-90) 164 mg/dl (70-90) Test 10/18/17 01:07 10/18/17 06:35 10/18/17 07:24 Bedside Glucose 134 mg/dl (70-90) 188 mg/dl (70-90) Red Blood Count 2.83 M/uL (4.2-5.4) Mean Corpuscular Volume 94.7 fL (80-100) Mean Corpuscular Hemoglobin 30.7 pg (25-34) Mean Corpuscular Hemoglobin Concent 32.5 g/dl (32-36) RDW Standard Deviation 56.3 fL (36.4-46.3) RDW Coefficient of Variation 16.4 % (11.5-14.5) Mean Platelet Volume 8.5 fL (7.4-10.4) Anion Gap 10.0 mmol/L (3-11) Est Creatinine Clear Calc Drug Dose 9.4 ml/min Estimated GFR () 9.7 Estimated GFR (Non- 8.4 BUN/Creatinine Ratio 6.9 (10-20) Calcium Level 7.5 mg/dl (8.5-10.1) Phosphorus Level 5.6 mg/dl (2.5-4.9) Magnesium Level 2.0 mg/dl (1.8-2.4) Random Vancomycin Level 8.9 mcg/ml Allergies Coded Allergies: Adhesives (Verified Allergy, Intermediate, RASH, 10/17/17) Amoxicillin (Verified Allergy, Intermediate, RASH, 10/17/17) Ampicillin (Verified Allergy, Intermediate, RASH, 10/17/17) Erythromycin (Verified Allergy, Intermediate, RASH, 10/17/17) Etodolac (Verified Allergy, Intermediate, RASH, 10/17/17) Penicillins (Verified Allergy, Intermediate, RASH, 10/17/17) Sulfa Antibiotics (Verified Allergy, Intermediate, RASH, 10/17/17) Aspirin (Verified Allergy, Mild, RASH, 10/17/17) Sevelamer (Verified Allergy, Mild, rash, 10/17/17) Medications Current Inpatient Medications Medications (Trade) Dose Ordered Sig/Eduardo Route Start Time Stop Time Status Last Admin Dose Admin Ioversol (Optiray 320) 100 ml UD PRN IV 10/17/17 04:00 10/21/17 03:59 Levalbuterol (Xopenex 0.63 Mg/ 3 Ml Neb) 0.63 mg Q6R INH 10/17/17 05:45 1/27/18 05:44 10/18/17 02:04 0.63 MG Aztreonam (Consult) 1 ea DAILY PRN N/A 10/17/17 05:45 11/16/17 05:44 Bumetanide (Bumex Tab) 2 mg DAILY PO 10/17/17 09:00 11/16/17 08:59 Calcium Acetate (Phoslo Cap) 667 mg BID PRN PO 10/17/17 05:45 11/16/17 05:44 Calcium Acetate (Phoslo Cap) 2,001 mg AC PO 10/17/17 06:30 11/16/17 06:29 10/18/17 06:03 2,001 MG Lisinopril (Zestril Tab) 40 mg DAILY PO 10/17/17 09:00 11/16/17 08:59 Metoprolol Tartrate (Lopressor Tab) 50 mg BID PO 10/17/17 09:00 11/16/17 08:59 10/17/17 21:07 50 MG Multivitamins/ Minerals (Multivitamin W/ Minerals Tab) 1 tab DAILY PO 10/17/17 09:00 11/16/17 08:59 10/17/17 07:36 1 TAB Oxycodone/ Acetaminophen (Percocet 5-325mg Tab) 1 tab Q6H PRN PO 10/17/17 05:45 10/31/17 05:44 Psyllium Hydrophilic Mucilloid (Metamucil Powder) 1 pkt DAILY PO 10/17/17 09:00 11/16/17 08:59 Acetaminophen (Tylenol Tab) 650 mg Q4H PRN PO 10/17/17 05:45 11/16/17 05:44 Insulin Aspart (novoLOG ASPART) SLIDING SCALE If C... ACHS SC 10/17/17 06:30 11/16/17 06:29 10/18/17 08:32 3 UNITS Glucose (Glucose 40% Gel) 15-30 GRAMS 15 GRAMS... UD PRN PO 10/17/17 05:45 11/16/17 05:44 Glucose (Glucose Chew Tab) 4-8 Tablets 4 Tabl... UD PRN PO 10/17/17 05:45 11/16/17 05:44 10/17/17 19:11 4 TABS Dextrose (Dextrose 50% 50ML Syringe) 25-50ML OF 50% DW IV FOR... UD PRN IV 10/17/17 05:45 11/16/17 05:44 Glucagon (Glucagon Inj) 1 mg UD PRN SQ 10/17/17 05:45 11/16/17 05:44 Miscellaneous Information (Consult Glycemic Management Pharmacy) 1 ea DAILY PRN N/A 10/17/17 05:49 11/16/17 05:48 Hydralazine HCl (Apresoline Tab) 25 mg BID PO 10/17/17 09:00 11/16/17 08:59 10/17/17 21:07 25 MG Clonidine HCl (Catapres Tab) 0.1 mg Q6H PRN PO 10/17/17 05:45 11/16/17 05:44 10/18/17 01:32 0.1 MG Levofloxacin (Consult) 1 ea UD PRN N/A 10/17/17 06:00 11/16/17 05:59 Vancomycin HCl (Consult) 1 ea UD PRN N/A 10/17/17 06:00 11/16/17 05:59 Insulin Glargine (Lantus Solostar Pen) 5 units QAM SC 10/17/17 09:00 11/16/17 08:59 10/18/17 08:33 5 UNITS Levofloxacin 500 mg/Prmx 100 ml @ 100 mls/hr Q48H IV 10/19/17 11:00 10/24/17 10:59 Aztreonam 500 mg/ Dextrose 55 ml @ 110 mls/hr Q12H IV 10/17/17 19:00 10/24/17 06:59 10/17/17 19:13 110 MLS/HR Calcium Carbonate (Tums Chew Tab) 1,000 mg DAILY PRN PO 10/17/17 09:53 11/16/17 08:59 Cholecalciferol (Vitamin D Tab) 1,000 inter.unit DAILY PO 10/18/17 09:00 11/17/17 08:59 Heparin Sodium (Porcine) (Heparin Sq 5000 Unit/0.5ml) 5,000 unit Q8 SQ 10/17/17 22:00 11/16/17 21:59 10/17/17 21:14 5,000 UNIT Heparin Sodium (Porcine) (Heparin Iv Bolus) 2,000 unit TODAY@1000 IV 10/18/17 10:00 10/18/17 18:00 Vancomycin HCl 1000 mg/Sodium Chloride 270 ml @ 125 mls/hr TODAY@1400 ONCE IV 10/18/17 14:00 10/18/17 16:09 Epoetin Ruben 6000 units/Syringe 0.3 ml @ 1 mls/min TODAY@1000 IV. 10/18/17 10:00 10/18/17 20:00 Impression (1) ESRD (end stage renal disease) on dialysis (2) Pneumonia (3) Benign hypertension with ESRD (end-stage renal disease) (4) Von Willebrand disease Recommendations END STAGE RENAL DISEASE: -- Will provide HD today for 2 hours to resume MWF outpatient schedule. Will attempt 1 L UF. Orders entered into EMR and HD RN notified -- Continue oral Bumex. Patient still makes urine HYPERTENSION: -- Blood pressure is acceptable. Continue Metoprolol and Lisinopril ANEMIA: -- Hgb has dropped overnight. Will provide KISHA w/ HD today -- Monitor H&H CKD-BMD: -- Continue oral PO4 binder and calcitriol ID: -- Probable pneumonia. Levaquin & Aztreonam are appropriately dosed for ESRD on HD
--- NOTE | 2017-10-18 10:37 | NUR ---
A; Patient transported to dialysis unit via bed at this time.
--- NOTE | 2017-10-18 12:57 | NUR ---
A: Patient remains at dialysis for treatment.
--- NOTE | 2017-10-18 13:45 | ECHOCARDIOGRAM REPORT ---
*NOTICE TO RECEIVING CONSTITUTION PARTY AGENCY This information is strictly Confidential and protected under [place] law. [place] law prohibits you from making any further disclosure of this information unless further disclosure is expressly permitted by the written consent of the person to whom it pertains or is authorized by law. A general authorization for the release of medical or other information is not sufficient for this purpose. Hospital accepts no responsibility if the information is made available to any other person, INCLUDING THE PATIENT. Interpretation Summary * Name: ISIDRO BLANCO Study Date: 10/18/2017 06:44 AM BP: 175/73 mmHg * Patient Location: [facility]\S\N284\[id number]\1 HR: 63 * : 1950 (M/d/yyyy) Gender: Female Height: 64 in * Age: 67 yrs Ethnicity: [place] Weight: 123 lb * Ordering Physician: Denise Wilkerson * Referring Physician: UNKNOWN * Performed By: Damaris Gonzalez RCS * * Reason For Study: Acute Volume Overload, Hypoxia * BSA: 1.6 m2 * -- Conclusions -- * There is normal left ventricular wall thickness. * No regional wall motion abnormalities noted. * The LV Ejection Fraction = 55-60%. * The left atrium is mildly dilated. * Trace aortic regurgitation. * There is mild to moderate mitral regurgitation. * There is mild to moderate tricuspid regurgitation. * Grade I diastolic dysfunction, (abnormal relaxation pattern). * The left atrial filling pressure is elevated based on 2 D and Doppler datat. * Mild pulmonary hypertension is present. * The PA systolic pressure is calculated to be 45 mm Hg assuming a right atrial pressure of 3 mm Hg. * A large left pleural effusion is present. Procedure Details * A complete two-dimensional transthoracic echocardiogram was performed (2D, M-mode, Doppler and color flow Doppler). Left Ventricle * The left ventricle is normal in size. * There is normal left ventricular wall thickness. * Ejection Fraction = 55-60%. * Left ventricular systolic function is normal. * The left ventricular wall motion is normal. * No regional wall motion abnormalities noted. Right Ventricle * The right ventricle is normal in size and function. * The right ventricular systolic function is normal as assessed by tricuspid annular plane systolic excursion (TAPSE) (normal >1.5 cm). Atria * The left atrium is mildly dilated. * Right atrial size is normal. * There is no evidence of atrial septal defect, but resolution does not allow assessment for a patent foramen ovale. Mitral Valve * There is mild mitral annular calcification. * There is no mitral valve stenosis. * There is mild to moderate mitral regurgitation. Tricuspid Valve * The tricuspid valve is normal. * There is no tricuspid stenosis. * There is mild to moderate tricuspid regurgitation. * Mild pulmonary hypertension is present. The PA systolic pressure is calculated to be 45 mm Hg assuming a right atrial pressure of 3 mm Hg. Aortic Valve * The aortic valve is trileaflet. * Aortic stenosis is absent. * Trace aortic regurgitation. Pulmonic Valve * The pulmonary valve is not well seen, but the Doppler examination is normal without significant regurgitation or stenosis. Great Vessels * The aortic root and proximal ascending aorta are normal sized. Pericardium/Pleural * There is no pericardial effusion. * Large left pleural effusion. Great Vessels * Normal inferior vena cava diameter and respiratory variation suggests normal central venous pressure. Left Ventricular Diastolic Function * Grade I diastolic dysfunction, (abnormal relaxation pattern). * The left atrial filling pressure is elevated based on 2 D and Doppler datat. MMode 2D Measurements and Calculations IVSd 0.95 cm IVSs 1.2 cm LVIDd 5.1 cm LVIDs 3.3 cm LVPWd 0.89 cm LVPWs 1.2 cm IVS/LVPW 1.1 FS 35.4 % EDV(Teich) 126.4 ml ESV(Teich) 45.0 ml EF(Teich) 64.4 % EDV(cubed) 136.3 ml ESV(cubed) 36.8 ml EF(cubed) 73.0 % % IVS thick 24.4 % % LVPW thick 30.3 % LV mass(C)d 170.8 grams LV mass(C)dI 107.4 grams/m\S\2 LV mass(C)s 121.4 grams LV mass(C)sI 76.3 grams/m\S\2 SV(Teich) 81.5 ml SI(Teich) 51.2 ml/m\S\2 SV(cubed) 99.5 ml SI(cubed) 62.6 ml/m\S\2 Ao root diam 3.1 cm Ao root area 7.6 cm\S\2 ACS 1.6 cm LA dimension 4.1 cm asc Aorta Diam 2.4 cm LA/Ao 1.3 LVAd ap4 35.8 cm\S\2 LVLd ap4 8.5 cm EDV(MOD-sp4) 123.0 ml LVAs ap4 20.7 cm\S\2 LVLs ap4 7.1 cm ESV(MOD-sp4) 52.5 ml EF(MOD-sp4) 57.3 % LVAd ap2 39.9 cm\S\2 LVLd ap2 8.5 cm EDV(MOD-sp2) 159.0 ml LVAs ap2 26.7 cm\S\2 LVLs ap2 7.4 cm ESV(MOD-sp2) 83.5 ml EF(MOD-sp2) 47.5 % SV(MOD-sp4) 70.5 ml SI(MOD-sp4) 44.3 ml/m\S\2 SV(MOD-sp2) 75.5 ml SI(MOD-sp2) 47.5 ml/m\S\2 Doppler Measurements and Calculations MV E max yenni 154.2 cm/sec MV A max yenni 109.7 cm/sec MV E/A 1.4 MV P1/2t max yenni 161.5 cm/sec MV P1/2t 84.2 msec MVA(P1/2t) 2.6 cm\S\2 MV dec slope 561.6 cm/sec\S\2 MV dec time 0.16 sec Ao V2 max 194.7 cm/sec Ao max PG 15.2 mmHg Ao max PG (full) 10.4 mmHg LV V1 max PG 4.7 mmHg LV V1 max 108.8 cm/sec PA V2 max 97.5 cm/sec PA max PG 3.8 mmHg PI max yenni 178.1 cm/sec PI max PG 12.7 mmHg PI dec slope 213.5 cm/sec\S\2 PI P1/2t 244.3 msec TR max yenni 307.1 cm/sec
[2017-10-18] MEDS ORDERED: VANCOMYCIN IV 1,000 MG in SODIUM CHLORIDE 0.9% 250ML 250 ML IV ONE (14:00)
[2017-10-18] MEDS: LISINOPRIL 40 MG TAB PO SCH (14:11)
[2017-10-18] MEDS: CEROVITE ADV FORMULA TAB PO SCH (14:11)
[2017-10-18] MEDS: CHOLECALCIFEROL 1000 INTER.UNIT TAB PO SCH (14:11)
[2017-10-18] MEDS: BUMETANIDE 1 MG TAB PO SCH (14:12)
--- NOTE | 2017-10-18 15:29 | NUR ---
Discharge planning consult received. I spoke with the patient in her room after dialysis, she is alert and oriented x 4. Patient states that she lives with her in their own home. She currently uses a walker and is active with [facility] in [place], Saturday, saturday and Saturday. She states that she is independent with adl's and drives. She denies needs at this time, plans to return home and resume prior services at discharge. Case management to follow.
--- NOTE | 2017-10-18 15:44 | NUR ---
A: Patient tolerated dialysis well, had late lunch. denies cp sob or other issues.
--- NOTE | 2017-10-18 16:00 | NUR ---
ID NOTE: Patient admitted with SOB. Patient now feeling much better after dialysis yesterday and short session today, VSS. Patient with no SOB, no CP, NSR on monitor. Swelling to lower extremities improved per patient report. patient wearing 1L o2 at her request for comfort. Plan for discharge is to go home where she resides with her .
--- NOTE | 2017-10-18 17:18 | Progress Note ---
Medicine Progress Note Date & Time of Visit: Oct 18, 2017 at 16:46. Subjective 67 year old diabetic female with ESRD on HD presents with acute onset SOB and evidence of fluid overload. She is feeling better today from a breathing standpoint but is still requiring oxygen at this time. She denies any pain. She reports swelling 2/2 amlodipine use in her legs. Her SOB was acute [employer] and has improved today. She reports walking through the grocery store without stopping without issue on a regular basis. Chronic stool incontinence and min UOP. She denies other issues. HD today Objective Last 8 Hrs Date Time Temp Pulse Resp B/P (MAP) Pulse Ox O2 Delivery O2 Flow Rate FiO2 10/18/17 16:00 Nasal Cannula 1.0 10/18/17 15:46 37.2 73 16 164/64 (97) 98 Nasal Cannula 1.0 10/18/17 14:33 72 16 95 Nasal Cannula 2.0 10/18/17 12:56 36.9 56 176/72 (106) 10/18/17 12:30 56 171/74 10/18/17 12:15 57 173/75 10/18/17 12:00 56 158/70 10/18/17 11:45 56 156/73 10/18/17 11:30 55 150/68 10/18/17 11:15 56 162/65 10/18/17 11:00 58 155/68 10/18/17 10:50 59 161/73 10/18/17 10:30 37.0 64 152/70 (97) Physical Exam: GEN: WNWD, in no acute distress, alert and appropriate, no respiratory distress , no conversational dyspnea. HEENT: NC/AT, pupils are equal and round bilaterally, normal sclerae, MMM CARDIO: reg rate, S1/2 heard without m/g/r LUNGS: CTAB, rales or wheezes, good diaphragmatic excursion ABD: soft, non-tender, non-distended, no rebound or guarding, +BS EXTREMITY: RP and DP palpable 2+ bilat, 2+ LE edema bilaterally up to mid-shins , extremities are warm and well-perfused NEURO: CN 2-12 grossly intact, no gross focal deficits. MUSC: moves all extremities equally, no gross focal deficits SKIN: warm and dry Laboratory Results: 10/18/17 06:35 10/18/17 06:35 Test 10/17/17 00:00 10/17/17 01:30 10/18/17 06:35 10/18/17 16:28 Influenza Type A (RT-PCR) Neg for Influ A (NEG) Influenza Type B (RT-PCR) Neg for Influ B (NEG) Immature Granulocyte % (Auto) 0.2 % White Blood Count 12.53 K/uL (4.8-10.8) Red Blood Count 3.69 M/uL (4.2-5.4) 2.83 M/uL (4.2-5.4) Hemoglobin 11.5 g/dL (12.0-16.0) Hematocrit 34.6 % (37-47) Mean Corpuscular Volume 93.8 fL (80-100) 94.7 fL (80-100) Mean Corpuscular Hemoglobin 31.2 pg (25-34) 30.7 pg (25-34) Mean Corpuscular Hemoglobin Concent 33.2 g/dl (32-36) 32.5 g/dl (32-36) Platelet Count 274 K/uL (130-400) Mean Platelet Volume 8.5 fL (7.4-10.4) 8.5 fL (7.4-10.4) Neutrophils (%) (Auto) 89.5 % Lymphocytes (%) (Auto) 5.7 % Monocytes (%) (Auto) 4.5 % Eosinophils (%) (Auto) 0.0 % Basophils (%) (Auto) 0.1 % Neutrophils # (Auto) 11.21 K/uL (1.4-6.5) Lymphocytes # (Auto) 0.72 K/uL (1.2-3.4) Monocytes # (Auto) 0.56 K/uL (0.11-0.59) Eosinophils # (Auto) 0.00 K/uL (0-0.5) Basophils # (Auto) 0.01 K/uL (0-0.2) Immature Granulocyte # (Auto) 0.03 K/uL (0.00-0.02) Red Blood Cell Morphology Unremarkable Prothrombin Time 10.7 SECONDS (9.0-12.0) Prothromb Time International Ratio 1.0 (0.9-1.1) Troponin I 0.047 ng/ml (0-0.045) Pro-B-Type Natriuretic Peptide > 58878 pg/ml (0-900) RDW Standard Deviation 56.3 fL (36.4-46.3) RDW Coefficient of Variation 16.4 % (11.5-14.5) Anion Gap 10.0 mmol/L (3-11) Est Creatinine Clear Calc Drug Dose 9.4 ml/min Estimated GFR () 9.7 Estimated GFR (Non- 8.4 BUN/Creatinine Ratio 6.9 (10-20) Calcium Level 7.5 mg/dl (8.5-10.1) Phosphorus Level 5.6 mg/dl (2.5-4.9) Magnesium Level 2.0 mg/dl (1.8-2.4) Random Vancomycin Level 8.9 mcg/ml Bedside Glucose 182 mg/dl (70-90) Date/Time Source Procedure Growth Status 10/18/17 16:47 Blood Blood Culture Pending Ordered 10/17/17 06:25 Nasal MRSA DNA Surveillance Screen - Final Specimen Negative for MRSA by DNA Probe Complete Last 24 Hours Test 10/17/17 19:07 10/17/17 19:36 10/17/17 23:46 10/18/17 01:07 Bedside Glucose 64 mg/dl 83 mg/dl 164 mg/dl 134 mg/dl Test 10/18/17 06:35 10/18/17 07:24 10/18/17 13:47 10/18/17 16:28 White Blood Count 4.82 K/uL Red Blood Count 2.83 M/uL Hemoglobin 8.7 g/dL Hematocrit 26.8 % Mean Corpuscular Volume 94.7 fL Mean Corpuscular Hemoglobin 30.7 pg Mean Corpuscular Hemoglobin Concent 32.5 g/dl RDW Standard Deviation 56.3 fL RDW Coefficient of Variation 16.4 % Platelet Count 176 K/uL Mean Platelet Volume 8.5 fL Sodium Level 136 mmol/L Potassium Level 3.9 mmol/L Chloride Level 105 mmol/L Carbon Dioxide Level 21 mmol/L Anion Gap 10.0 mmol/L Blood Urea Nitrogen 34 mg/dl Creatinine 4.94 mg/dl Est Creatinine Clear Calc Drug Dose 9.4 ml/min Estimated GFR () 9.7 Estimated GFR (Non- 8.4 BUN/Creatinine Ratio 6.9 Random Glucose 203 mg/dl Calcium Level 7.5 mg/dl Phosphorus Level 5.6 mg/dl Magnesium Level 2.0 mg/dl Random Vancomycin Level 8.9 mcg/ml Bedside Glucose 188 mg/dl 154 mg/dl 182 mg/dl Assessment & Plan 67 year old diabetic female with ESRD on HD presents with acute onset SOB and evidence of fluid overload. She is feeling better today from a breathing standpoint but is still requiring oxygen at this time. She denies any pain. She reports swelling 2/2 amlodipine use in her legs. Her SOB was acute [employer] and has improved today. She reports walking through the grocery store without stopping without issue on a regular basis. Chronic stool incontinence and min UOP. She denies other issues. HD today 1. Hypoxia-etiologies include but not limited to: a) acute volume overload-pt has a h/o heart failure exacerbation once in the past but also missed a HD session [employer]. Nephro consulted to help manage fluid through dialysis with 2L off yesterday. Pt is also on daily Bumex PO. b) findings consistent with Possible/Suspected Gram negative HCAP (recent hospital admission)-f/u sputum culture, bronchodilator q6h. Sputum and blood cultures are pending but with clinical improvement will deescalate abx therapy to Levaquin PO and monitor for decompensation. 2. DMI-controlled. ISS/Lantus with carb coverage. Appreciate glycemic pharmacist input. 3. Anemia-likely multifactorial related to phlebotomy, anemia of CKD and anemia of chronic inflammation from other comorbidities. No reports of bleeding. CBC in am. 4. HTN-uncontrolled this morning but improved with Metoprolol, lisinopril, hydralazine and PRN clonidine. After HD BP was still slightly high. Increased hydralazine to 25mg TID. 5. LE edema-resolved today from 2+ yesterday to just trace today. Recent adverse reaction to amlodipine as outpatient which caused significant edema and likely volume overload contributing. Stopped this just 1 week ago with improvement since then. Cont TEDs. 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 Graves disease-not on medications 8. Sjorgen's 9. von Willebrand Deficiency 10. Hypokalemia-replace PO cautiously. PRP in am. DVT proph-heparin Full Code Dispo-cont telemetry monitoring [facility] Hospital[facility] Consultants: Nephro Current Inpatient Medications: Current Inpatient Medications Medications (Trade) Dose Ordered Sig/Eduardo Route Start Time Stop Time Status Last Admin Dose Admin Ioversol (Optiray 320) 100 ml UD PRN IV 10/17/17 04:00 10/21/17 03:59 Levalbuterol (Xopenex 0.63 Mg/ 3 Ml Neb) 0.63 mg Q6R INH 10/17/17 05:45 11/16/17 05:44 10/18/17 14:33 0.63 MG Aztreonam (Consult) 1 ea DAILY PRN N/A 10/17/17 05:45 11/16/17 05:44 Bumetanide (Bumex Tab) 2 mg DAILY PO 10/17/17 09:00 11/16/17 08:59 10/18/17 14:12 2 MG Calcium Acetate (Phoslo Cap) 667 mg BID PRN PO 10/17/17 05:45 11/16/17 05:44 Calcium Acetate (Phoslo Cap) 2,001 mg AC PO 10/17/17 06:30 11/16/17 06:29 10/18/17 14:11 2,001 MG Lisinopril (Zestril Tab) 40 mg DAILY PO 10/17/17 09:00 11/16/17 08:59 10/18/17 14:11 40 MG Metoprolol Tartrate (Lopressor Tab) 50 mg BID PO 10/17/17 09:00 11/16/17 08:59 10/17/17 21:07 50 MG Multivitamins/ Minerals (Multivitamin W/ Minerals Tab) 1 tab DAILY PO 10/17/17 09:00 11/16/17 08:59 10/18/17 14:11 1 TAB Oxycodone/ Acetaminophen (Percocet 5-325mg Tab) 1 tab Q6H PRN PO 10/17/17 05:45 10/31/17 05:44 Psyllium Hydrophilic Mucilloid (Metamucil Powder) 1 pkt DAILY PO 10/17/17 09:00 11/16/17 08:59 Acetaminophen (Tylenol Tab) 650 mg Q4H PRN PO 10/17/17 05:45 11/16/17 05:44 Insulin Aspart (novoLOG ASPART) SLIDING SCALE If C... ACHS SC 10/17/17 06:30 11/16/17 06:29 10/18/17 08:32 3 UNITS Glucose (Glucose 40% Gel) 15-30 GRAMS 15 GRAMS... UD PRN PO 10/17/17 05:45 11/16/17 05:44 Glucose (Glucose Chew Tab) 4-8 Tablets 4 Tabl... UD PRN PO 10/17/17 05:45 11/16/17 05:44 10/17/17 19:11 4 TABS Dextrose (Dextrose 50% 50ML Syringe) 25-50ML OF 50% DW IV FOR... UD PRN IV 10/17/17 05:45 11/16/17 05:44 Glucagon (Glucagon Inj) 1 mg UD PRN SQ 10/17/17 05:45 11/16/17 05:44 Miscellaneous Information (Consult Glycemic Management Pharmacy) 1 ea DAILY PRN N/A 10/17/17 05:49 11/16/17 05:48 Hydralazine HCl (Apresoline Tab) 25 mg BID PO 10/17/17 09:00 11/16/17 08:59 10/17/17 21:07 25 MG Clonidine HCl (Catapres Tab) 0.1 mg Q6H PRN PO 10/17/17 05:45 11/16/17 05:44 10/18/17 01:32 0.1 MG Levofloxacin (Consult) 1 ea UD PRN N/A 10/17/17 06:00 11/16/17 05:59 Vancomycin HCl (Consult) 1 ea UD PRN N/A 10/17/17 06:00 11/16/17 05:59 Insulin Glargine (Lantus Solostar Pen) 5 units QAM SC 10/17/17 09:00 11/16/17 08:59 10/18/17 08:33 5 UNITS Levofloxacin 500 mg/Prmx 100 ml @ 100 mls/hr Q48H IV 10/19/17 11:00 10/24/17 10:59 Aztreonam 500 mg/ Dextrose 55 ml @ 110 mls/hr Q12H IV 10/17/17 19:00 10/24/17 06:59 10/18/17 07:00 110 MLS/HR Calcium Carbonate (Tums Chew Tab) 1,000 mg DAILY PRN PO 10/17/17 09:53 11/16/17 08:59 Cholecalciferol (Vitamin D Tab) 1,000 inter.unit DAILY PO 10/18/17 09:00 11/17/17 08:59 10/18/17 14:11 1,000 INTER.UNIT Heparin Sodium (Porcine) (Heparin Sq 5000 Unit/0.5ml) 5,000 unit Q8 SQ 10/17/17 22:00 11/16/17 21:59 10/18/17 14:21 5,000 UNIT Heparin Sodium (Porcine) (Heparin Iv Bolus) 2,000 unit TODAY@1000 IV 10/18/17 10:00 10/18/17 18:00 Epoetin Ruben 6000 units/Syringe 0.3 ml @ 1 mls/min TODAY@1000 IV. 10/18/17 10:00 10/18/17 20:00 10/18/17 11:00 1 MLS/MIN
--- NOTE | 2017-10-18 20:00 | NUR ---
A: Assessment completed see EMR. Pt is A&Ox4 and is OOB with an assist of one to the bedside commode. Pt admitted with SOB. Pt has no complaints at this time. Vitals WNL. +1 pitting edema noted to pts BLE. Pt presents with sinus rhythm on the monitor. Pt participates in dialysis Saturday, Saturday and Saturday. Pt has dialysis today and 1 liter was removed. Pt tolerated well. Pt has a left upper arm fistula that is positive for a thrill and bruit. Pt is a moderate fall risk. Call pimentel within reach and pt encouraged to ring for assistance. Pt is from home and plans to return there upon discharge. No discharge date at this time.
[2017-10-19] VITALS (11 sets, daily range): BP systolic 150–188; BP diastolic 55–76; PULSE 65–87; TEMP 36.6–36.9; O2SAT 95–98
--- NOTE | 2017-10-19 | NUR ---
A: Assessment completed see EMR. Pt is resting at this time with no complaints. Vitals WNL. Pt presents with sinus rhythm on the monitor. Call pimentel within reach and pt encouraged to ring.
[2017-10-19] MEDS: LEVALBUTEROL 0.63MG/3 ML NEB INH SCH ×2 (01:49→07:20)
[2017-10-19] MEDS: CALCIUM ACETATE 667MG GELCAP PO SCH ×4 (05:29→17:18)
[2017-10-19] MEDS: HEPARIN SOD 5000 UNIT/0.5 ML CARP SQ SCH ×3 (05:29→21:02)
[2017-10-19 06:20] LABS: HEMATOCRIT 27.7 % (37-47); HEMOGLOBIN 8.8 g/dL (12.0-16.0); MEAN CELL VOLUME 95.2 fL (80-100); MEAN CORPUSCULAR HEMOGLOBIN 30.2 pg (25-34); MEAN CORPUSCULAR HGB CONC 31.8 g/dl (32-36); MEAN PLATELET VOLUME 8.9 fL (7.4-10.4); PLATELET COUNT 206 K/uL (130-400); RED CELL DISTRIBUTION WIDTH CV 15.7 % (11.5-14.5); RED CELL DISTRIBUTION WIDTH SD 54.8 fL (36.4-46.3); WHITE BLOOD COUNT 4.16 K/uL (4.8-10.8)
[2017-10-19 07:05] LABS: CALCIUM 8.1 mg/dl (8.5-10.1); CREATININE 4.89 mg/dl (0.60-1.20)
[2017-10-19] MEDS: BUMETANIDE 1 MG TAB PO SCH (07:53)
[2017-10-19] MEDS: METOPROLOL TARTRATE 50 MG TAB PO SCH ×2 (07:53→20:37)
[2017-10-19] MEDS: LISINOPRIL 40 MG TAB PO SCH (07:54)
[2017-10-19] MEDS: PSYLLIUM 58.6% PWD PACK PO SCH (07:54)
[2017-10-19] MEDS: CEROVITE ADV FORMULA TAB PO SCH (07:54)
[2017-10-19] MEDS: CHOLECALCIFEROL 1000 INTER.UNIT TAB PO SCH (07:54)
[2017-10-19] MEDS: INSULIN GLARGINE SOLOSTAR 100 UNITS/ML 3 ML PEN SC SCH (07:55)
--- NOTE | 2017-10-19 08:00 | NUR ---
A: [facility]
[2017-10-19] MEDS: INSULIN ASPART 100 UNITS/ML 3 ML PEN SC SCH ×4 (08:20→21:02)
[2017-10-19] MEDS ORDERED: LEVOFLOXACIN 500 MG TAB PO SCH (09:00)
[2017-10-19] MEDS ORDERED: LEVALBUTEROL 0.63MG/3 ML NEB INH PRN (09:15)
--- NOTE | 2017-10-19 10:05 | NUR ---
ID: Pt. AAOx4. VSS on room air, NSR. Pt. reported no pain or discomfort other than a mild soreness in the right ankle. Lungs were clear. BP's running high. Pt. has no edema present. Pt. is to have a sputum culture and 2 step done today.
[2017-10-19] MEDS ORDERED: LEVOFLOXACIN 500MG / D5W IV SCH (11:00)
--- NOTE | 2017-10-19 11:54 | Nephrology Progress Note ---
Nephrology Progress Note Date of Service Oct 19, 2017. Chief Complaint ESRD requiring HD Subjective Mrs. Turner was seen & examined in her hospital room this morning. She was dialyzed yesterday for 2 hours w/ 1 L UF. There were no complications. Mrs. Turner reports that her breathing is subjectively improved. She is breathing comfortably on room air and denies productive cough. Review of Systems Constitutional: No fever Cardiovascular: No chest pain Respiratory: No productive cough Abdomen: No pain, No nausea, No vomiting Extremities: No leg edema A complete review of systems was performed. Pertinent positives are noted above. All other systems are negative. Vital Signs Last 8 Hrs Date Time Temp Pulse Resp B/P (MAP) Pulse Ox O2 Delivery O2 Flow Rate FiO2 10/19/17 11:36 36.6 65 18 162/68 (99) 97 10/19/17 10:50 75 95 10/19/17 09:53 150/61 (90) 10/19/17 08:30 Room Air 10/19/17 07:20 87 16 97 Room Air 10/19/17 07:11 36.8 66 18 188/75 (112) 96 10/19/17 04:47 36.9 70 18 166/69 (101) 96 Room Air 10/19/17 04:00 Room Air Last Recorded Weight Weight (Kilograms): 57.400 Physical Exam General Appearance: no apparent distress Head: normocephalic, atraumatic Eyes: PERRL, EOMI Neck: no adenopathy Respiratory/Chest: lungs clear, no respiratory distress Cardiovascular: regular rate, rhythm Abdomen/GI: normal bowel sounds, non tender, soft Extremities/Musculoskelatal: no calf tenderness, no pedal edema, + pertinent finding (AVF + bruit) Neurologic/Psych: alert, oriented x 3 Family History No pertinent family history Negative for CKD/ESRD Social History Smokeless Tobacco Use: No Drug Use: none Marital Status: 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 . Retired. Never a smoker Laboratory Results Past 24 Hours 10/19/17 06:03 10/19/17 06:03 Test 10/18/17 13:47 10/18/17 16:28 10/18/17 20:07 10/19/17 06:03 Bedside Glucose 154 mg/dl (70-90) 182 mg/dl (70-90) 261 mg/dl (70-90) Red Blood Count 2.91 M/uL (4.2-5.4) Mean Corpuscular Volume 95.2 fL (80-100) Mean Corpuscular Hemoglobin 30.2 pg (25-34) Mean Corpuscular Hemoglobin Concent 31.8 g/dl (32-36) RDW Standard Deviation 54.8 fL (36.4-46.3) RDW Coefficient of Variation 15.7 % (11.5-14.5) Mean Platelet Volume 8.9 fL (7.4-10.4) Anion Gap 9.0 mmol/L (3-11) Est Creatinine Clear Calc Drug Dose 9.5 ml/min Estimated GFR () 9.8 Estimated GFR (Non- 8.5 BUN/Creatinine Ratio 7.0 (10-20) Calcium Level 8.1 mg/dl (8.5-10.1) Test 10/19/17 07:30 10/19/17 11:23 Bedside Glucose 226 mg/dl (70-90) 219 mg/dl (70-90) Allergies Coded Allergies: Adhesives (Verified Allergy, Intermediate, RASH, 10/17/17) Amoxicillin (Verified Allergy, Intermediate, RASH, 10/17/17) Ampicillin (Verified Allergy, Intermediate, RASH, 10/17/17) Erythromycin (Verified Allergy, Intermediate, RASH, 10/17/17) Etodolac (Verified Allergy, Intermediate, RASH, 10/17/17) Penicillins (Verified Allergy, Intermediate, RASH, 10/17/17) Sulfa Antibiotics (Verified Allergy, Intermediate, RASH, 10/17/17) Aspirin (Verified Allergy, Mild, RASH, 10/17/17) Sevelamer (Verified Allergy, Mild, rash, 10/17/17) Medications Current Inpatient Medications Medications (Trade) Dose Ordered Sig/Eduardo Route Start Time Stop Time Status Last Admin Dose Admin Ioversol (Optiray 320) 100 ml UD PRN IV 10/17/17 04:00 10/21/17 03:59 Bumetanide (Bumex Tab) 2 mg DAILY PO 10/17/17 09:00 11/16/17 08:59 10/19/17 07:53 2 MG Calcium Acetate (Phoslo Cap) 667 mg BID PRN PO 10/17/17 05:45 11/16/17 05:44 Lisinopril (Zestril Tab) 40 mg DAILY PO 10/17/17 09:00 11/16/17 08:59 10/19/17 07:54 40 MG Metoprolol Tartrate (Lopressor Tab) 50 mg BID PO 10/17/17 09:00 11/16/17 08:59 10/19/17 07:53 50 MG Multivitamins/ Minerals (Multivitamin W/ Minerals Tab) 1 tab DAILY PO 10/17/17 09:00 11/16/17 08:59 10/19/17 07:54 1 TAB Oxycodone/ Acetaminophen (Percocet 5-325mg Tab) 1 tab Q6H PRN PO 10/17/17 05:45 10/31/17 05:44 Psyllium Hydrophilic Mucilloid (Metamucil Powder) 1 pkt DAILY PO 10/17/17 09:00 11/16/17 08:59 Acetaminophen (Tylenol Tab) 650 mg Q4H PRN PO 10/17/17 05:45 11/16/17 05:44 Insulin Aspart (novoLOG ASPART) SLIDING SCALE If C... ACHS SC 10/17/17 06:30 11/16/17 06:29 10/19/17 08:20 8 UNITS Glucose (Glucose 40% Gel) 15-30 GRAMS 15 GRAMS... UD PRN PO 10/17/17 05:45 11/16/17 05:44 Glucose (Glucose Chew Tab) 4-8 Tablets 4 Tabl... UD PRN PO 10/17/17 05:45 11/16/17 05:44 10/17/17 19:11 4 TABS Dextrose (Dextrose 50% 50ML Syringe) 25-50ML OF 50% DW IV FOR... UD PRN IV 10/17/17 05:45 11/16/17 05:44 Glucagon (Glucagon Inj) 1 mg UD PRN SQ 10/17/17 05:45 11/16/17 05:44 Miscellaneous Information (Consult Glycemic Management Pharmacy) 1 ea DAILY PRN N/A 10/17/17 05:49 11/16/17 05:48 Clonidine HCl (Catapres Tab) 0.1 mg Q6H PRN PO 10/17/17 05:45 11/16/17 05:44 10/18/17 01:32 0.1 MG Levofloxacin (Consult) 1 ea UD PRN N/A 10/17/17 06:00 11/16/17 05:59 Insulin Glargine (Lantus Solostar Pen) 5 units QAM SC 10/17/17 09:00 11/16/17 08:59 10/19/17 07:55 5 UNITS Calcium Carbonate (Tums Chew Tab) 1,000 mg DAILY PRN PO 10/17/17 09:53 11/16/17 08:59 Cholecalciferol (Vitamin D Tab) 1,000 inter.unit DAILY PO 10/18/17 09:00 11/17/17 08:59 10/19/17 07:54 1,000 INTER.UNIT Heparin Sodium (Porcine) (Heparin Sq 5000 Unit/0.5ml) 5,000 unit Q8 SQ 10/17/17 22:00 11/16/17 21:59 10/19/17 05:29 5,000 UNIT Levofloxacin (Levaquin Tab) 500 mg Q2D@0900 PO 10/19/17 09:00 10/26/17 08:59 10/19/17 07:53 500 MG Calcium Acetate (Phoslo Cap) 2,001 mg TIDM PO 10/19/17 08:00 11/18/17 07:59 10/19/17 07:53 2,001 MG Hydralazine HCl (Apresoline Tab) 50 mg TID PO 10/19/17 14:00 11/16/17 08:59 Levalbuterol (Xopenex 0.63 Mg/ 3 Ml Neb) 0.63 mg Q6R PRN INH 10/19/17 09:15 11/18/17 09:14 Impression (1) ESRD (end stage renal disease) on dialysis (2) Pneumonia (3) Benign hypertension with ESRD (end-stage renal disease) (4) Von Willebrand disease Recommendations END STAGE RENAL DISEASE: -- Volume status and electrolyte balance are currently acceptable. No acute indication for HD today -- Continue oral Bumex. Patient still makes urine -- If discharge is anticipated please advise patient to present to the outpatient HD unit on Saturday due to the HYPERTENSION: -- Blood pressure is acceptable. Continue Metoprolol and Lisinopril ANEMIA: -- Hgb was stable overnight -- Monitor H&H CKD-BMD: -- Continue oral PO4 binder and calcitriol ID: -- Probable pneumonia. Agree w/ transitioning to oral antibiotic therapy
--- NOTE | 2017-10-19 12:42 | NUR ---
A: Assessment unchanged, pt. was awake in bed eating lunch.
[2017-10-19] MEDS ORDERED: LEVALBUTEROL 0.63MG/3 ML NEB INH SCH (15:00)
--- NOTE | 2017-10-19 16:00 | NUR ---
A: The patient is alert and oriented x4, denies pain, nausea and shortness of breath presently. No cough noted, denies when asked. Patient's vital signs are stable on room air, and the patient is in normal sinus rhythm on the alarm security or surveillance monitor. The patient's right forearm peripheral IV site is saline locked and asymptomatic. The patient's left upper arm AV fistula is asymptomatic with positive bruit and thrill, no bleeding noted. The patient is able to stand and walk to the bathroom with one person assist, states that she only becomes short of breath with this activity. Skin is grossly intact. +1 pitting edema of the bilateral lower extremities is noted, lungs are clear to auscultation and diminished in the bases. See full assessment. Call pimentel is within reach.
--- NOTE | 2017-10-19 20:00 | NUR ---
A: The patient is alert and oriented x4, denies pain, nausea and shortness of breath. Vital signs remain stable on room air, and the patient remains in normal sinus rhythm on the mud temperer. Assessment is unchanged, the patient is alert and sitting upright in bed visiting with her sister, who is at the bedside. Call pimentel is within reach.
[2017-10-19] MEDS: CLONIDINE HCL 0.1 MG TAB PO PRN (22:31)
--- NOTE | 2017-10-20 | NUR ---
A: Patient rang call pimentel and stated that she was feeling "full". Stated that it was more indigestion related. 2 Tums given. Upon rechecking patient she was found to be asleep. Will continue to monitor and assess patient. 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
--- NOTE | 2017-10-20 00:14 | Progress Note ---
Medicine Progress Note Date & Time of Visit: Oct 19, 2017 at 15:54. Subjective 67 year old diabetic female with ESRD on HD presents with acute onset SOB and evidence of fluid overload. She is feeling better today from a breathing standpoint and is off oxygen. She denies any pain. She reports swelling 2/2 amlodipine use in her legs that is improved off this medication. Her SOB was acute [employer] and has improved today. She reports walking through the grocery store without stopping without issue on a regular basis. Chronic stool incontinence and min UOP. She denies other issues. HD today Objective Last 8 Hrs Date Time Temp Pulse Resp B/P (MAP) Pulse Ox O2 Delivery O2 Flow Rate FiO2 10/19/17 15:43 36.7 67 20 168/69 (102) 97 Room Air 10/19/17 12:29 Room Air 10/19/17 11:36 36.6 65 18 162/68 (99) 97 10/19/17 10:50 75 95 10/19/17 09:53 150/61 (90) 10/19/17 08:30 Room Air Physical Exam: GEN: WNWD, in no acute distress, alert and appropriate, no respiratory distress , no conversational dyspnea. HEENT: NC/AT, pupils are equal and round bilaterally, normal sclerae, MMM CARDIO: reg rate, S1/2 heard without m/g/r LUNGS: CTAB, rales or wheezes, good diaphragmatic excursion ABD: soft, non-tender, non-distended, no rebound or guarding, +BS EXTREMITY: RP and DP palpable 2+ bilat, 2+ LE edema bilaterally up to mid-shins , extremities are warm and well-perfused NEURO: CN 2-12 grossly intact, no gross focal deficits. MUSC: moves all extremities equally, no gross focal deficits SKIN: warm and dry Laboratory Results: 10/19/17 06:03 10/19/17 06:03 Test 10/17/17 00:00 10/17/17 01:30 10/18/17 06:35 10/19/17 06:03 Influenza Type A (RT-PCR) Neg for Influ A (NEG) Influenza Type B (RT-PCR) Neg for Influ B (NEG) Immature Granulocyte % (Auto) 0.2 % White Blood Count 12.53 K/uL (4.8-10.8) Red Blood Count 3.69 M/uL (4.2-5.4) 2.91 M/uL (4.2-5.4) Hemoglobin 11.5 g/dL (12.0-16.0) Hematocrit 34.6 % (37-47) Mean Corpuscular Volume 93.8 fL (80-100) 95.2 fL (80-100) Mean Corpuscular Hemoglobin 31.2 pg (25-34) 30.2 pg (25-34) Mean Corpuscular Hemoglobin Concent 33.2 g/dl (32-36) 31.8 g/dl (32-36) Platelet Count 274 K/uL (130-400) Mean Platelet Volume 8.5 fL (7.4-10.4) 8.9 fL (7.4-10.4) Neutrophils (%) (Auto) 89.5 % Lymphocytes (%) (Auto) 5.7 % Monocytes (%) (Auto) 4.5 % Eosinophils (%) (Auto) 0.0 % Basophils (%) (Auto) 0.1 % Neutrophils # (Auto) 11.21 K/uL (1.4-6.5) Lymphocytes # (Auto) 0.72 K/uL (1.2-3.4) Monocytes # (Auto) 0.56 K/uL (0.11-0.59) Eosinophils # (Auto) 0.00 K/uL (0-0.5) Basophils # (Auto) 0.01 K/uL (0-0.2) Immature Granulocyte # (Auto) 0.03 K/uL (0.00-0.02) Red Blood Cell Morphology Unremarkable Prothrombin Time 10.7 SECONDS (9.0-12.0) Prothromb Time International Ratio 1.0 (0.9-1.1) Troponin I 0.047 ng/ml (0-0.045) Pro-B-Type Natriuretic Peptide > 98973 pg/ml (0-900) Phosphorus Level 5.6 mg/dl (2.5-4.9) Magnesium Level 2.0 mg/dl (1.8-2.4) Random Vancomycin Level 8.9 mcg/ml RDW Standard Deviation 54.8 fL (36.4-46.3) RDW Coefficient of Variation 15.7 % (11.5-14.5) Anion Gap 9.0 mmol/L (3-11) Est Creatinine Clear Calc Drug Dose 9.5 ml/min Estimated GFR () 9.8 Estimated GFR (Non- 8.5 BUN/Creatinine Ratio 7.0 (10-20) Calcium Level 8.1 mg/dl (8.5-10.1) Test 10/19/17 20:25 Bedside Glucose 125 mg/dl (70-90) Date/Time Source Procedure Growth Status 10/18/17 17:43 Blood Blood Culture Pending Received 10/17/17 06:25 Nasal MRSA DNA Surveillance Screen - Final Specimen Negative for MRSA by DNA Probe Complete Last 24 Hours Test 10/18/17 16:28 10/18/17 20:07 10/19/17 06:03 10/19/17 07:30 Bedside Glucose 182 mg/dl 261 mg/dl 226 mg/dl White Blood Count 4.16 K/uL Red Blood Count 2.91 M/uL Hemoglobin 8.8 g/dL Hematocrit 27.7 % Mean Corpuscular Volume 95.2 fL Mean Corpuscular Hemoglobin 30.2 pg Mean Corpuscular Hemoglobin Concent 31.8 g/dl RDW Standard Deviation 54.8 fL RDW Coefficient of Variation 15.7 % Platelet Count 206 K/uL Mean Platelet Volume 8.9 fL Sodium Level 134 mmol/L Potassium Level 4.0 mmol/L Chloride Level 104 mmol/L Carbon Dioxide Level 21 mmol/L Anion Gap 9.0 mmol/L Blood Urea Nitrogen 34 mg/dl Creatinine 4.89 mg/dl Est Creatinine Clear Calc Drug Dose 9.5 ml/min Estimated GFR () 9.8 Estimated GFR (Non- 8.5 BUN/Creatinine Ratio 7.0 Random Glucose 219 mg/dl Calcium Level 8.1 mg/dl Test 10/19/17 11:23 Bedside Glucose 219 mg/dl Date/Time Source Procedure Growth Status 10/18/17 17:43 Blood Blood Culture Pending Received 10/18/17 17:33 Blood Blood Culture Pending Received Assessment & Plan 67 year old diabetic female with ESRD on HD presents with acute onset SOB and evidence of fluid overload. She is feeling better today from a breathing standpoint and is off oxygen. She denies any pain. She reports swelling 2/2 amlodipine use in her legs that is improved off this medication. Her SOB was acute [employer] and has improved today. She reports walking through the grocery store without stopping without issue on a regular basis. Chronic stool incontinence and min UOP. She denies other issues. HD today 1. Hypoxia-etiologies include but not limited to: a) acute volume overload-pt has a h/o heart failure exacerbation once in the past but also missed a HD session [employer]. Nephro consulted to help manage fluid through dialysis with 2L off yesterday. Pt is also on daily Bumex PO. b) findings consistent with Possible/Suspected Gram negative HCAP (recent hospital admission)-f/u sputum culture, bronchodilator q6h. Sputum and blood cultures are pending -doing well on Levaquin PO 2. DMI-controlled. ISS/Lantus with carb coverage. Appreciate glycemic pharmacist input. 3. Anemia-likely multifactorial related to phlebotomy, anemia of CKD and anemia of chronic inflammation from other comorbidities. No reports of bleeding. CBC in am. 4. HTN-continues to fluctuate-cont Metoprolol, lisinopril, hydralazine and PRN clonidine. After HD BP was still slightly high. Increased hydralazine to 50mg TID. 5. LE edema-trace, Recent adverse reaction to amlodipine as outpatient which caused significant edema and likely volume overload contributing. Stopped this just 1 week ago with improvement since then. Cont TEDs. 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 Graves disease-not on medications 8. Sjorgen's DVT proph-heparin Full Code Dispo-cont telemetry monitoring DO Kristi Abbasi Hospitalist Consultants: Nephro Current Inpatient Medications: Current Inpatient Medications Medications (Trade) Dose Ordered Sig/Eduardo Route Start Time Stop Time Status Last Admin Dose Admin Ioversol (Optiray 320) 100 ml UD PRN IV 10/17/17 04:00 10/21/17 03:59 Bumetanide (Bumex Tab) 2 mg DAILY PO 10/17/17 09:00 11/16/17 08:59 10/19/17 07:53 2 MG Calcium Acetate (Phoslo Cap) 667 mg BID PRN PO 10/17/17 05:45 11/16/17 05:44 Lisinopril (Zestril Tab) 40 mg DAILY PO 10/17/17 09:00 11/16/17 08:59 10/19/17 07:54 40 MG Metoprolol Tartrate (Lopressor Tab) 50 mg BID PO 10/17/17 09:00 11/16/17 08:59 10/19/17 07:53 50 MG Multivitamins/ Minerals (Multivitamin W/ Minerals Tab) 1 tab DAILY PO 10/17/17 09:00 11/16/17 08:59 10/19/17 07:54 1 TAB Oxycodone/ Acetaminophen (Percocet 5-325mg Tab) 1 tab Q6H PRN PO 10/17/17 05:45 10/31/17 05:44 Psyllium Hydrophilic Mucilloid (Metamucil Powder) 1 pkt DAILY PO 10/17/17 09:00 11/16/17 08:59 Acetaminophen (Tylenol Tab) 650 mg Q4H PRN PO 10/17/17 05:45 11/16/17 05:44 Insulin Aspart (novoLOG ASPART) SLIDING SCALE If C... ACHS SC 10/17/17 06:30 11/16/17 06:29 10/19/17 12:11 8 UNITS Glucose (Glucose 40% Gel) 15-30 GRAMS 15 GRAMS... UD PRN PO 10/17/17 05:45 11/16/17 05:44 Glucose (Glucose Chew Tab) 4-8 Tablets 4 Tabl... UD PRN PO 10/17/17 05:45 11/16/17 05:44 10/17/17 19:11 4 TABS Dextrose (Dextrose 50% 50ML Syringe) 25-50ML OF 50% DW IV FOR... UD PRN IV 10/17/17 05:45 11/16/17 05:44 Glucagon (Glucagon Inj) 1 mg UD PRN SQ 10/17/17 05:45 11/16/17 05:44 Miscellaneous Information (Consult Glycemic Management Pharmacy) 1 ea DAILY PRN N/A 10/17/17 05:49 11/16/17 05:48 Clonidine HCl (Catapres Tab) 0.1 mg Q6H PRN PO 10/17/17 05:45 11/16/17 05:44 10/18/17 01:32 0.1 MG Levofloxacin (Consult) 1 ea UD PRN N/A 10/17/17 06:00 11/16/17 05:59 Calcium Carbonate (Tums Chew Tab) 1,000 mg DAILY PRN PO 10/17/17 09:53 11/16/17 08:59 Cholecalciferol (Vitamin D Tab) 1,000 inter.unit DAILY PO 10/18/17 09:00 11/17/17 08:59 10/19/17 07:54 1,000 INTER.UNIT Heparin Sodium (Porcine) (Heparin Sq 5000 Unit/0.5ml) 5,000 unit Q8 SQ 10/17/17 22:00 11/16/17 21:59 10/19/17 14:32 5,000 UNIT Levofloxacin (Levaquin Tab) 500 mg Q2D@0900 PO 10/19/17 09:00 10/26/17 08:59 10/19/17 07:53 500 MG Calcium Acetate (Phoslo Cap) 2,001 mg TIDM PO 10/19/17 08:00 11/18/17 07:59 10/19/17 12:09 2,001 MG Hydralazine HCl (Apresoline Tab) 50 mg TID PO 10/19/17 14:00 11/16/17 08:59 10/19/17 14:11 50 MG Levalbuterol (Xopenex 0.63 Mg/ 3 Ml Neb) 0.63 mg Q6R PRN INH 10/19/17 09:15 11/18/17 09:14 Insulin Glargine (Lantus Solostar Pen) 7 units QAM SC 10/20/17 09:00 11/19/17 08:59
[2017-10-20 04:00] VITALS: BP 164/73; PULSE 164; TEMP 36.6; O2SAT 96
--- NOTE | 2017-10-20 04:00 | NUR ---
A: Patient resting. C/O sweats. Bed linens changed and blood sugar checked. [id number]. No complaints of pain or signs of distress. BP elevated. Will administer prn BP medication when available. Call pimentel within reach. Will continue to monitor and assess patient.
[2017-10-20] MEDS: CLONIDINE HCL 0.1 MG TAB PO PRN (05:29)
[2017-10-20] MEDS: HEPARIN SOD 5000 UNIT/0.5 ML CARP SQ SCH (05:31)
[2017-10-20 07:17] VITALS: BP 148/65; PULSE 62; TEMP 36.9; O2SAT 97
[2017-10-20 08:00] VITALS: O2SAT 98
[2017-10-20] MEDS: PSYLLIUM 58.6% PWD PACK PO SCH (08:13)
[2017-10-20] MEDS: CALCIUM ACETATE 667MG GELCAP PO SCH (08:13)
[2017-10-20] MEDS: INSULIN ASPART 100 UNITS/ML 3 ML PEN SC SCH (08:21)
[2017-10-20] MEDS ORDERED: INSULIN GLARGINE SOLOSTAR 100 UNITS/ML 3 ML PEN SC SCH (09:00)
[2017-10-20] MEDS ORDERED: HYDR-4717 PO (09:07)
[2017-10-20] MEDS ORDERED: LVQ500 PO (09:07)
--- NOTE | 2017-10-20 09:16 | Nephrology Progress Note ---
Nephrology Progress Note Date of Service Oct 20, 2017. Chief Complaint ESRD requiring HD Subjective Mrs. Turner was seen & examined in her hospital room this morning. She reports that she is breathing comfortably on room air without cough. She hopes to be discharged to home today. Mrs. Turner voices no new medical concerns. Review of Systems Constitutional: No fever Cardiovascular: No chest pain Respiratory: No productive cough, No dyspnea at rest Abdomen: No pain, No nausea, No vomiting Extremities: No leg edema A complete review of systems was performed. Pertinent positives are noted above. All other systems are negative. Vital Signs Last 8 Hrs Date Time Temp Pulse Resp B/P (MAP) Pulse Ox O2 Delivery O2 Flow Rate FiO2 10/20/17 07:17 36.9 62 18 148/65 (92) 97 Room Air 10/20/17 04:00 36.6 164 17 164/73 (103) 96 Room Air 10/20/17 04:00 Room Air Last Recorded Weight Weight (Kilograms): 56.300 Physical Exam General Appearance: no apparent distress Head: normocephalic, atraumatic Eyes: PERRL, EOMI Neck: no adenopathy Respiratory/Chest: lungs clear, no respiratory distress Cardiovascular: regular rate, rhythm Abdomen/GI: normal bowel sounds, non tender, soft Extremities/Musculoskelatal: no calf tenderness, no pedal edema, + pertinent finding (AVf + bruit) Neurologic/Psych: alert, oriented x 3 Family History No pertinent family history Negative for CKD/ESRD Social History Smokeless Tobacco Use: No Drug Use: none Marital Status: 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 . Retired. Never a smoker Laboratory Results Past 24 Hours Test 10/19/17 11:23 10/19/17 16:18 10/19/17 20:25 10/20/17 04:15 Bedside Glucose 219 mg/dl (70-90) 91 mg/dl (70-90) 125 mg/dl (70-90) 185 mg/dl (70-90) Test 10/20/17 07:42 Bedside Glucose 240 mg/dl (70-90) Allergies Coded Allergies: Adhesives (Verified Allergy, Intermediate, RASH, 10/17/17) Amoxicillin (Verified Allergy, Intermediate, RASH, 10/17/17) Ampicillin (Verified Allergy, Intermediate, RASH, 10/17/17) Erythromycin (Verified Allergy, Intermediate, RASH, 10/17/17) Etodolac (Verified Allergy, Intermediate, RASH, 10/17/17) Penicillins (Verified Allergy, Intermediate, RASH, 10/17/17) Sulfa Antibiotics (Verified Allergy, Intermediate, RASH, 10/17/17) Aspirin (Verified Allergy, Mild, RASH, 10/17/17) Sevelamer (Verified Allergy, Mild, rash, 10/17/17) Medications Current Inpatient Medications Medications (Trade) Dose Ordered Sig/Eduardo Route Start Time Stop Time Status Last Admin Dose Admin Ioversol (Optiray 320) 100 ml UD PRN IV 10/17/17 04:00 10/21/17 03:59 Bumetanide (Bumex Tab) 2 mg DAILY PO 10/17/17 09:00 11/16/17 08:59 10/19/17 07:53 2 MG Calcium Acetate (Phoslo Cap) 667 mg BID PRN PO 10/17/17 05:45 11/16/17 05:44 Lisinopril (Zestril Tab) 40 mg DAILY PO 10/17/17 09:00 11/16/17 08:59 10/19/17 07:54 40 MG Metoprolol Tartrate (Lopressor Tab) 50 mg BID PO 10/17/17 09:00 11/16/17 08:59 10/19/17 20:37 50 MG Multivitamins/ Minerals (Multivitamin W/ Minerals Tab) 1 tab DAILY PO 10/17/17 09:00 11/16/17 08:59 10/19/17 07:54 1 TAB Oxycodone/ Acetaminophen (Percocet 5-325mg Tab) 1 tab Q6H PRN PO 10/17/17 05:45 10/31/17 05:44 Psyllium Hydrophilic Mucilloid (Metamucil Powder) 1 pkt DAILY PO 10/17/17 09:00 11/16/17 08:59 Acetaminophen (Tylenol Tab) 650 mg Q4H PRN PO 10/17/17 05:45 11/16/17 05:44 Insulin Aspart (novoLOG ASPART) SLIDING SCALE If C... ACHS SC 10/17/17 06:30 11/16/17 06:29 10/20/17 08:21 8 UNITS Glucose (Glucose 40% Gel) 15-30 GRAMS 15 GRAMS... UD PRN PO 10/17/17 05:45 11/16/17 05:44 Glucose (Glucose Chew Tab) 4-8 Tablets 4 Tabl... UD PRN PO 10/17/17 05:45 11/16/17 05:44 10/17/17 19:11 4 TABS Dextrose (Dextrose 50% 50ML Syringe) 25-50ML OF 50% DW IV FOR... UD PRN IV 10/17/17 05:45 11/16/17 05:44 Glucagon (Glucagon Inj) 1 mg UD PRN SQ 10/17/17 05:45 11/16/17 05:44 Miscellaneous Information (Consult Glycemic Management Pharmacy) 1 ea DAILY PRN N/A 10/17/17 05:49 11/16/17 05:48 Clonidine HCl (Catapres Tab) 0.1 mg Q6H PRN PO 10/17/17 05:45 11/16/17 05:44 10/20/17 05:29 0.1 MG Levofloxacin (Consult) 1 ea UD PRN N/A 10/17/17 06:00 11/16/17 05:59 Calcium Carbonate (Tums Chew Tab) 1,000 mg DAILY PRN PO 10/17/17 09:53 11/16/17 08:59 10/20/17 00:01 1,000 MG Cholecalciferol (Vitamin D Tab) 1,000 inter.unit DAILY PO 10/18/17 09:00 11/17/17 08:59 10/19/17 07:54 1,000 INTER.UNIT Heparin Sodium (Porcine) (Heparin Sq 5000 Unit/0.5ml) 5,000 unit Q8 SQ 10/17/17 22:00 11/16/17 21:59 10/20/17 05:31 5,000 UNIT Levofloxacin (Levaquin Tab) 500 mg Q2D@0900 PO 10/19/17 09:00 10/26/17 08:59 10/19/17 07:53 500 MG Calcium Acetate (Phoslo Cap) 2,001 mg TIDM PO 10/19/17 08:00 11/18/17 07:59 10/20/17 08:13 2,001 MG Hydralazine HCl (Apresoline Tab) 50 mg TID PO 10/19/17 14:00 11/16/17 08:59 10/19/17 20:37 50 MG Levalbuterol (Xopenex 0.63 Mg/ 3 Ml Neb) 0.63 mg Q6R PRN INH 10/19/17 09:15 11/18/17 09:14 Insulin Glargine (Lantus Solostar Pen) 7 units QAM SC 10/20/17 09:00 11/19/17 08:59 10/20/17 08:19 7 UNITS Impression (1) ESRD (end stage renal disease) on dialysis (2) Pneumonia (3) Benign hypertension with ESRD (end-stage renal disease) (4) Von Willebrand disease Recommendations END STAGE RENAL DISEASE: -- No labs this am. Spoke w/ primary service this am. Patient will likely be discharged today. I have called [facility]. They are expecting the patient by 12 noon today due to the holiday schedule. -- Continue oral Bumex. Patient still makes urine HYPERTENSION: -- Blood pressure is acceptable. Continue Metoprolol and Lisinopril ANEMIA: -- Hgb was stable overnight -- Monitor H&H CKD-BMD: -- Continue oral PO4 binder and calcitriol
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
[2017-10-20 09:38] VITALS: BP 148/65; PULSE 62; TEMP 36.9; O2SAT 97
[2017-10-20] MEDS ORDERED: BMX1 PO (10:11)
--- NOTE | 2017-10-20 10:50 | NUR ---
DISCHARGE NOTE: Patient discharged to home in care of . Patient to leave and go directly to dialysis in [place]. Patient IV removed, all personal belongings cleared from room. Patient escorted to front entrance via wheelchair by volunteer services.
[2018-01-27] MEDS ORDERED: OXYC-594 PO (00:24)
== END 2017-10-20 11:01 | disposition home or self-care (01) | DRG 177 ==
LOC: C.EDB 00:25 → C.MED 04:25 → ENRESERV 04:44 → EDBEDREQ 04:46
PROVIDERS: ADMIT Internal Medicine; ATTEND Hospitalist
DX: J15.6 Pneumonia due to other Gram-negative bacteria (principal); N18.6 End stage renal disease; D68.0 Von Willebrand disease; Z99.2 Dependence on renal dialysis; E10.22 Type 1 diabetes mellitus with diabetic chronic kidney disease; R06.00 Dyspnea, unspecified; E87.70 Fluid overload, unspecified; I12.9 Hypertensive chronic kidney disease with stage 1 through stage 4 chronic kidney disease, or unspecified chronic kidney disease; R60.9 Edema, unspecified; M06.9 Rheumatoid arthritis, unspecified; E05.00 Thyrotoxicosis with diffuse goiter without thyrotoxic crisis or storm; E87.6 Hypokalemia; D64.9 Anemia, unspecified

== ENCOUNTER 2017-11-28 19:23 | Inpatient (IN) | payer OTHER ==
[~2017-11-28] VITALS: Ht 162.6 cm; Wt 49.6 kg
[2017-11-28] VITALS (8 sets, daily range): BP systolic 134–168; BP diastolic 68–90; PULSE 63–93; TEMP 36.8; O2SAT 96–100; Ht 162.6 cm; Wt 49.6 kg
[~2017-11-28 19:23] MED LIST changes: +BMX1 PO; -BUME2TAB3 PO; -CIPR-255 PO; +HYDR-4717 PO; +LISI40TA PO; -LISI40TA3 PO; +LVQ500 PO; -NRV5 PO
[2017-11-28] MEDS ORDERED: ALBUT/IPRATROP 3MG/0.5MG NEB 3 ML VIAL INH STA (19:46)
--- NOTE | 2017-11-28 20:02 | EMERGENCY ROOM VISIT NOTE ---
History Report prepared by Molly: Alanna Cates Under the Supervision of: Dr. Bacilio Frankel M.D. First contact with patient: 19:41 Chief Complaint: SHORTNESS OF BREATH Stated Complaint: SOB History of Present Illness The patient is a 67 year old female who presents to the Emergency Room with complaints of worsening shortness of breath starting 2 hours ago. The patient notes that she is on dialysis and had pneumonia a few weeks ago. She states that due to weather, she has not had dialysis since Saturday and is supposed to go again tomorrow. She reports that she started to develop a cough today. The patient reports that the oxygen does not feel like it is helping. She states that she has used inhalers and breathing treatments in the past. The patient denies chest pain. Per nursing staff, the patient was in the low 80s upon arrival. Source of History: patient, nursing staff Onset: 2 hours ago Position: other (global) Quality: other (global) Timing: worsening Associated Symptoms: + cough, No chest pain Review of Systems See HPI for pertinent positives & negatives. A total of 10 systems reviewed and were otherwise negative. Past Medical & Surgical Medical Problems: (1) acute renal failure, DKA, PNA (2) Anemia (3) Benign hypertension with ESRD (end-stage renal disease) (4) Diabetes (5) ESRD (end stage renal disease) on dialysis (6) Hyperparathyroidism due to ESRD on dialysis (7) Hypertensive emergency (8) Hypoxia (9) Liver failure (10) Pulmonary edema (11) Renal failure (12) Secondary hyperparathyroidism of renal origin (13) Shortness of breath (14) Von Willebrand disease Old medical records were reviewed. Nurse's notes were reviewed and I agree with. Family History No pertinent family history Social History Smoking Status: Never Smoker Alcohol Use: none Drug Use: none Marital Status: Housing Status: lives with family Occupation Status: retired Current/Historical Medications Scheduled Calcium Acetate (Phoslo 667 Mg), 3 CAPSULES PO WM Calcium Acetate (Phoslo 667 Mg), 1 CAP PO with snacks Cholecalciferol (Vitamin D3), 1,000 UNITS PO DAILY Furosemide (Furosemide), 80 MG PO QAM Insulin Glargine (Lantus), 7 UNITS SC QAM Lisinopril (Zestril), 40 MG PO HS Metoprolol Tartrate (Lopressor) (Lopressor), 50 MG PO BID Multiple Vitamins W/ Minerals (Prorenal Vital), 1 TAB PO DAILY Scheduled PRN Calcium Carbonate (Tums), 2 TABS PO WM PRN for Dyspepsia Insulin Aspart (Novolog Flexpen), 0-40 UNITS SQ MEALS AFTER 1700 PRN for 1 UNIT FOR EVERY SEVEN CARBS Oxycodone/Acetaminophen 5MG/325MG (Percocet 5MG/325MG), 1-2 TABLETS PO Q4H PRN for Pain Psyllium (Metamucil Fiber), 1 TSP PO DAILY PRN for Constipation Allergies Coded Allergies: Adhesives (Verified Allergy, Intermediate, RASH, 11/28/17) Amoxicillin (Verified Allergy, Intermediate, RASH, 11/28/17) Ampicillin (Verified Allergy, Intermediate, RASH, 11/28/17) Erythromycin (Verified Allergy, Intermediate, RASH, 11/28/17) Etodolac (Verified Allergy, Intermediate, RASH, 11/28/17) Penicillins (Verified Allergy, Intermediate, RASH, 11/28/17) Sulfa Antibiotics (Verified Allergy, Intermediate, RASH, 11/28/17) Aspirin (Verified Allergy, Mild, RASH, 11/28/17) Sevelamer (Verified Allergy, Mild, rash, 11/28/17) Physical Exam Vital Signs Date Time Temp Pulse Resp B/P (MAP) Pulse Ox O2 Delivery O2 Flow Rate FiO2 11/28/17 21:15 78 18 152/88 98 BiPAP 11/28/17 21:00 83 20 170/89 97 BiPAP 11/28/17 20:54 83 20 170/89 97 BiPAP 11/28/17 20:37 93 96 40 11/28/17 20:30 85 20 159/86 98 BiPAP 11/28/17 19:45 111 11/28/17 19:36 111 36 94 Nasal Cannula 6.0 11/28/17 19:28 37.5 106 30 215/99 79 Room Air Physical Exam General: Non-ill appearing older female who appears anxious and mildly tachypneic. On supplemental O2 with Oxygen at 99%. HEENT: Normal cephalic atraumatic. Pupils are equal round and reactive to light. Extraocular movements are intact. Oropharynx is pink with moist mucous membranes. No swelling of the mouth lips or tongue. Neck: Supple with a midline trachea. No meningeal signs or stiffness, no JVD or bruits. No Stridor. Chest: Lungs have crackles in bases bilaterally. No wheezes or rhonchi. No increased work of breathing. Heart: regular rate and rhythm. Abdomen: Soft nontender, nondistended without rebound guarding or rigidity. Extremities: No cyanosis clubbing or edema. No calf tenderness or assymetry Spine/Back. Non tender to palpation. No CVA tenderness Skin: Good turgor without rashes. Neurologic exam: Cranial nerves two through 12 are intact. Motor and sensation are intact and symmetrical throughout. Medical Decision & Procedures ER Provider Diagnostic Interpretation: Radiology results as stated below per my review and radiologist interpretation: CHEST ONE VIEW PORTABLE CLINICAL HISTORY: 67 years-old Female presenting with CHEST PAIN. TECHNIQUE: Portable upright AP view of the chest was obtained. COMPARISON: 10/17/2017. FINDINGS: Atherosclerosis of aortic arch. Cardiac silhouette enlarged. Bronchial wall thickening. Pulmonary vascular prominence. Increased reticular lung markings as well as increased hazy bibasilar opacities. Increased small bilateral pleural effusions. Vascular stent noted in the left axilla. Osseous structures normal. Upper abdomen normal. IMPRESSION: 1. Findings most consistent with pulmonary edema setting of cardiomegaly. 2. Bilateral small pleural effusions. Electronically signed by: Sixto Palacios M.D. 11/28/2017 8:03 PM Dictated Date/Time: 11/28/2017 8:01 PM Laboratory Results 11/28/17 19:50 Red Blood Count 4.00, Mean Corpuscular Volume 95.5, Mean Corpuscular Hemoglobin 31.0, Mean Corpuscular Hemoglobin Concent 32.5, Mean Platelet Volume 8.6, Neutrophils (%) (Auto) 94.9, Lymphocytes (%) (Auto) 3.3, Monocytes (%) (Auto) 1.3, Eosinophils (%) (Auto) 0.0, Basophils (%) (Auto) 0.1, Neutrophils # (Auto) 21.64, Lymphocytes # (Auto) 0.76, Monocytes # (Auto) 0.29, Eosinophils # (Auto) 0.00, Basophils # (Auto) 0.02 11/28/17 19:50 11/28/17 20:34 Test 11/28/17 19:46 11/28/17 19:50 11/28/17 20:01 11/28/17 20:03 Creatine Kinase MB Ratio (0-3.0) White Blood Count 22.80 K/uL (4.8-10.8) Red Blood Count 4.00 M/uL (4.2-5.4) Hemoglobin 12.4 g/dL (12.0-16.0) Hematocrit 38.2 % (37-47) Mean Corpuscular Volume 95.5 fL (80-100) Mean Corpuscular Hemoglobin 31.0 pg (25-34) Mean Corpuscular Hemoglobin Concent 32.5 g/dl (32-36) Platelet Count 361 K/uL (130-400) Mean Platelet Volume 8.6 fL (7.4-10.4) Neutrophils (%) (Auto) 94.9 % Lymphocytes (%) (Auto) 3.3 % Monocytes (%) (Auto) 1.3 % Eosinophils (%) (Auto) 0.0 % Basophils (%) (Auto) 0.1 % Neutrophils # (Auto) 21.64 K/uL (1.4-6.5) Lymphocytes # (Auto) 0.76 K/uL (1.2-3.4) Monocytes # (Auto) 0.29 K/uL (0.11-0.59) Eosinophils # (Auto) 0.00 K/uL (0-0.5) Basophils # (Auto) 0.02 K/uL (0-0.2) RDW Standard Deviation 55.5 fL (36.4-46.3) RDW Coefficient of Variation 16.3 % (11.5-14.5) Immature Granulocyte % (Auto) 0.4 % Immature Granulocyte # (Auto) 0.09 K/uL (0.00-0.02) Red Blood Cell Morphology Unremarkable Anion Gap 12.0 mmol/L (3-11) Est Creatinine Clear Calc Drug Dose 6.6 ml/min Estimated GFR () 7.1 Estimated GFR (Non- 6.1 BUN/Creatinine Ratio 6.8 (10-20) Calcium Level 8.8 mg/dl (8.5-10.1) Creatine Kinase MB 3.0 ng/ml (0.5-3.6) Bedside Troponin I < 0.030 ng/ml (0-0.045) Bedside Lactic Acid Venous 3.00 mmol/L (0.90-1.70) Test 11/28/17 20:34 Total Creatine Kinase 38 U/L (26-192) Laboratory studies as stated above per my review. Medications Administered Medications (Trade) Dose Ordered Sig/Eduardo Route Start Time Stop Time Status Last Admin Dose Admin Albuterol/ Ipratropium (Duoneb) 3 ml NOW STAT INH 11/28/17 19:46 11/28/17 19:48 DC 11/28/17 20:09 3 ML Furosemide (Lasix Inj) 40 mg NOW STAT IV 11/28/17 20:10 11/28/17 20:11 DC 11/28/17 20:16 40 MG Nitroglycerin (Nitrostat Tab) 0.4 mg PRN PRN SL 11/28/17 20:15 12/28/17 20:14 11/28/17 20:23 0.4 MG Nitroglycerin (Nitroglycerin 2% Oint) 0.5 inch NOW ONCE EXT 11/28/17 20:15 11/28/17 20:17 DC 11/28/17 20:44 0.5 INCH ECG Indication: SOB/dyspnea Rate (beats per minute): 82 Rhythm: normal sinus Findings: no acute ischemic change, other (LVH with repolarization, no prolongation of QT interval) Comparison ECG Date: October 17, 2017 Change: no significant change Change: Patient's electrocardiogram was interpreted by me. ED Course 1941: Past medical records reviewed. The patient was evaluated in room A3, and a complete history and physical examination were performed. 1945: Ordered Duoneb 3 ml INH. 1952: I reevaluated the patient. I ordered Bi-PAP and called respiratory. 1999: I reevaluated the patient and she just had her chest x-ray done. She has cardiomegaly with increased interstitial markings. 2009: Ordered Lasix Inj 40 mg IV. 2011: I reevaluated the patient and her blood pressure is 235. Her sugars are normal. I ordered Nitro and Lasix to help with the CHF. 2012: I discussed the patient's case with Dr. Del Angel from Nephrology. She will come in and see the patient. 2014: Ordered Nitroglycerin 0.5 inch EXT, Nitroglycerin 0.4 mg PRN SL Chest Pain. 2019: I discussed the patient's case with Efra Dominique, PA-C. He is going to come evaluate the patient. 2026: I reevaluated the patient and her blood pressure is down to 169 after Nitro. She looks much better with the Bi-PAP on. 2030: Discussed the patient's case with Dr. Wilkerson -Krist[facility] Hospitalist. The patient will be evaluated for further management. 2100: I reevaluated the patient and the marketing and outreach coordinator is with her. 2113: I reevaluated the patient and she is doing well. Medical Decision Differential diagnoses include pneumonia, sepsis, CHF, missed dialysis, anemia, pleural effusion, pneumothorax, PE. This patient comes in as described above and she was placed in room A3. She is here for treatment and evaluation of shortness of breath. She was found to be tachypneic and hypoxemic in triage and was brought back and made a priority patient. I promptly saw her. Upon my initial evaluation, she was getting blood work and IV . her O2 sat was in the high 90s however she still appeared tachypneic and said she did not feel any better. I did order a DuoNeb as well as a stat chest x-ray and reviewed her records. She seen be getting worse and my concern was for CHF among other etiologies we started her on BiPAP. This helped to respond greatly she was noted to be significantly hypertensive further go along with CHF. Her chest x-ray shows CHF. She was given sublingual nitroglycerin 2 and her pressure came down . she's also given nitroglycerin paste 1/2 inch and Lasix 40 mg IV. She still does make urine. She has renal failure but no acute electrolyte or metabolic abnormalities. I did consult the marketing and outreach coordinator as a do think she needs dialysis. I suspect that' s this is from fluid overload. Additionally may be related to hypertension as she seemed to get better pretty quickly. I also discussed this with the law examiner PABLO Fox and consulted Dr. Wilkerson. The patient be admitted the ICU for further treatment and evaluation. Medication Reconcilliation Current Medication List: was personally reviewed by me Blood Pressure Screening Patient's blood pressure: Elevated blood pressure Will further be monitored by the hospitalist. Consults Time Called: 2001 Consulting Physician: Dr. Del Angel from Nephrology Returned Call: 2012 I discussed the patient's case with Dr. Del Angel from Nephrology. She will come in and see the patient. Additional Consults: Time Called: 2017 Consulted Physician: Efra Fox PA-C- Record Pressman Returned Call: 2019 Additional Comments: I discussed the patient's case with Efra Fox PA-C. He is going to come evaluate the patient. Time Called: 2026 Consulted Physician: Dr. Rock Ackermanist Returned Call: 2030 Additional Comments: Discussed the patient's case with Dr. Rock Chin. The patient will be evaluated for further management. Impression Primary Impression: Congestive heart failure Additional Impressions: Hypertension Respiratory failure Critical Care I have personally spent greater than 60 minutes of critical care time in the direct management of this patient. This includes bedside care, interpretation of diagnostic studies, and testing, discussion with consultants, patient, and family members, and other required patient management activities. This 60 minutes is in excess of all separately billable procedures. Scribe Attestation The scribe's documentation has been prepared under my direction and personally reviewed by me in its entirety. I confirm that the note above accurately reflects all work, treatment, procedures, and medical decision making performed by me. Departure Information Dispostion Being Evaluated By Hospitalist Referrals Sixto Bella M.D. (PCP) Patient Instructions My [facility] Problem Qualifiers
[2017-11-28] MEDS ORDERED: FUROSEMIDE 40 MG/4 ML VIAL IV STA (20:10)
[2017-11-28 20:12] LABS: HEMATOCRIT 38.2 % (37-47); HEMOGLOBIN 12.4 g/dL (12.0-16.0); MEAN CELL VOLUME 95.5 fL (80-100); MEAN CORPUSCULAR HGB CONC 32.5 g/dl (32-36); MEAN PLATELET VOLUME 8.6 fL (7.4-10.4); PLATELET COUNT 361 K/uL (130-400); RED CELL DISTRIBUTION WIDTH CV 16.3 % (11.5-14.5); RED CELL DISTRIBUTION WIDTH SD 55.5 fL (36.4-46.3)
[2017-11-28] MEDS ORDERED: NITROGLYCERIN 2% OINTMENT 30GM TUBE EXT ONE (20:15)
[2017-11-28] MEDS: NITROGLYCERIN 0.4 MG SL PER TAB CHARGE SL PRN ×2 (20:15→20:23)
[2017-11-28 20:48] LABS: BLOOD UREA NITROGEN 44 mg/dl (7-18); CALCIUM 8.8 mg/dl (8.5-10.1); CARBON DIOXIDE 25 mmol/L (21-32); CREATININE 6.43 mg/dl (0.60-1.20); GLUCOSE 152 mg/dl (70-99); SODIUM 131 mmol/L (136-145)
[2017-11-28 20:52] LABS: BASO % 0.1 %; BASO ABS # 0.02 K/uL (0-0.2); IG# 0.09 K/uL (0.00-0.02); LYMPH % 3.3 %; LYMPH ABS # 0.76 K/uL (1.2-3.4); MONO % 1.3 %; MONO ABS # 0.29 K/uL (0.11-0.59); NEUT % 94.9 %; NEUT ABS # 21.64 K/uL (1.4-6.5)
[2017-11-28 20:57] LABS: POTASSIUM 3.6 mmol/L (3.5-5.1)
[2017-11-28] MEDS ORDERED: LSX80 PO (21:16)
--- NOTE | 2017-11-28 21:33 | Nephrology Consultation ---
Nephrology Consultation Date & Providers Date of Consultation: Nov 28, 2017. Primary Care Provider: Sixto Bella M.D. Referring Provider: Reason for Consultation End-stage renal disease on hemodialysis, evaluation for emergency dialysis. History of Present Illness Frieda Turner is a 67 year old female with end-stage renal disease on hemodialysis and hypertension presented to the emergency room with acute shortness of breath. Nephrology consult was requested to evaluate for emergency dialysis. Electronic medical records are reviewed in detail during patient's visit. Patient was seen in emergency room with her at bedside. Frieda has end-stage renal disease secondary to microvascular disease and hypertensive nephrosclerosis, has been on intermittent hemodialysis since September 2015. She dialysis via left brachiocephalic AV fistula, at [facility] on Saturday, Saturday, Saturday. Her estimated dry weight 49 kg. Her last dialysis session was last Saturday11/26/2017 and she had a shorter treatment of 2 hours 30 minutes due to weather related schedule change. She still makes urine. She was at home today otherwise asymptomatic until around 6:00 p.m. when she acutely became short of breath and her drove over to the emergency room. She denied having any chest pain, fever, chills, cough or congestion. Denies any headache, malaise or visual changes. She denied any dietary noncompliance. On arrival to the emergency room, her room air oxygen saturation was in low 80s which improved on 6 L nasal cannula oxygen and eventually on BiPAP. Chest x-ray showed pulmonary vascular congestion and small bilateral pleural effusion. Blood pressure was systolic 215. She was given Lasix 40 IV and nitroglycerin. Blood pressure started to improve, systolic blood pressure currently at 175. EKG done in emergency room showed sinus rhythm with left ventricular hypertrophy and no acute changes. Electrolyte panel were normal. Troponin was normal. Shortness of breath seems to have improved slightly. Currently denies any chest pain, headache, visual changes. Allergies Coded Allergies: Adhesives (Verified Allergy, Intermediate, RASH, 11/28/17) Amoxicillin (Verified Allergy, Intermediate, RASH, 11/28/17) Ampicillin (Verified Allergy, Intermediate, RASH, 11/28/17) Erythromycin (Verified Allergy, Intermediate, RASH, 11/28/17) Etodolac (Verified Allergy, Intermediate, RASH, 11/28/17) Penicillins (Verified Allergy, Intermediate, RASH, 11/28/17) Sulfa Antibiotics (Verified Allergy, Intermediate, RASH, 11/28/17) Aspirin (Verified Allergy, Mild, RASH, 11/28/17) Sevelamer (Verified Allergy, Mild, rash, 11/28/17) Inpatient Medications Current Inpatient Medications Medications (Trade) Dose Ordered Sig/Eduardo Route Start Time Stop Time Status Last Admin Dose Admin Nitroglycerin (Nitrostat Tab) 0.4 mg PRN PRN SL 11/28/17 20:15 12/28/17 20:14 11/28/17 20:23 0.4 MG Family History No pertinent family history Social History Smoking Status: Never Smoker Drug Use: none Marital Status: 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 Review of Systems A complete review of systems was performed. Pertinent positives are noted above. All other systems are negative. Physical Exam Date Time Temp Pulse Resp B/P (MAP) Pulse Ox O2 Delivery O2 Flow Rate FiO2 11/28/17 20:54 83 20 170/89 97 BiPAP 11/28/17 20:37 93 96 40 11/28/17 20:30 85 20 159/86 98 BiPAP 11/28/17 19:45 111 11/28/17 19:36 111 36 94 Nasal Cannula 6.0 11/28/17 19:28 37.5 106 30 215/99 79 Room Air GENERAL: Middle-aged female AAA x 3, ill-appearing, in [id number] respiratory distress. HEENT: Atraumatic, normocephalic. NECK: Supple, no JVD, no carotid bruit appreciated. ENT: No sinus tenderness MOUTH and THROAT: Wearing BiPAP RESPIRATORY: Coarse crackles bilaterally CARDIOVASCULAR: S1, S2 normal, rate rhythm regular. ABDOMEN: Soft, nontender, positive bowel sound. MUSCULOSKELETAL: No joint swelling, erythema or tenderness. Normal range of motion. SKIN: No skin rash EXTREMITY: 1 to 2+ bilateral lower extremity edema NEURO: No gross focal neurological deficit, speech fluent. PSYCHIATRY: Normal mood and judgment Laboratory Results Last 24 Hours Test 11/28/17 19:46 11/28/17 19:50 11/28/17 20:01 11/28/17 20:03 Creatine Kinase MB Ratio White Blood Count 22.80 K/uL Red Blood Count 4.00 M/uL Hemoglobin 12.4 g/dL Hematocrit 38.2 % Mean Corpuscular Volume 95.5 fL Mean Corpuscular Hemoglobin 31.0 pg Mean Corpuscular Hemoglobin Concent 32.5 g/dl Platelet Count 361 K/uL Mean Platelet Volume 8.6 fL Neutrophils (%) (Auto) 94.9 % Lymphocytes (%) (Auto) 3.3 % Monocytes (%) (Auto) 1.3 % Eosinophils (%) (Auto) 0.0 % Basophils (%) (Auto) 0.1 % Neutrophils # (Auto) 21.64 K/uL Lymphocytes # (Auto) 0.76 K/uL Monocytes # (Auto) 0.29 K/uL Eosinophils # (Auto) 0.00 K/uL Basophils # (Auto) 0.02 K/uL RDW Standard Deviation 55.5 fL RDW Coefficient of Variation 16.3 % Immature Granulocyte % (Auto) 0.4 % Immature Granulocyte # (Auto) 0.09 K/uL Red Blood Cell Morphology Unremarkable Sodium Level 131 mmol/L Potassium Level mmol/L Chloride Level 94 mmol/L Carbon Dioxide Level 25 mmol/L Anion Gap 12.0 mmol/L Blood Urea Nitrogen 44 mg/dl Creatinine 6.43 mg/dl Est Creatinine Clear Calc Drug Dose 6.6 ml/min Estimated GFR () 7.1 Estimated GFR (Non- 6.1 BUN/Creatinine Ratio 6.8 Random Glucose 152 mg/dl Calcium Level 8.8 mg/dl Total Creatine Kinase U/L Creatine Kinase MB 3.0 ng/ml Bedside Troponin I < 0.030 ng/ml Bedside Lactic Acid Venous 3.00 mmol/L Test 11/28/17 20:34 Potassium Level 3.6 mmol/L Total Creatine Kinase 38 U/L Impression (1) ESRD (end stage renal disease) on dialysis (2) Hypoxia (3) Pulmonary edema (4) Hypertensive emergency (5) Anemia (6) Secondary hyperparathyroidism of renal origin Frieda is a 67-year-old female with past medical history significant for hypertension, end-stage renal disease on hemodialysis secondary to microvascular disease and hypertensive nephrosclerosis presents to the emergency room with acute onset of shortness of breath. On on arrival she was found to be hypoxic with oxygen saturation low 80s on room air, in hypertensive emergency with systolic blood pressure more than 215 and chest x-ray showing pulmonary vascular congestion. EKG and cardiac enzymes are unremarkable. She was started on IV Lasix, given nitro glycerin with improvement in blood pressure. Initially started with nasal cannula oxygen and transitioned to CPAP with improvement in respiratory status and oxygen saturation. Electrolyte pannus are unremarkable. She is on dialysis on Saturday, Saturday, Saturday however she had dialysis last on Saturday, it does short treatment for 2.5 hours due to weather related schedule change. She still makes urine. On exam she is clearly volume overloaded, her estimated dry weight is 49 kg and currently she is around 54 kg , almost 5 kg above her dry weight. Shortness of breath and pulmonary vascular condition could be secondary to net volume overload due to shorter dialysis treatment versus flash pulmonary edema with hypertensive emergency. Concern for DVT/PE remains considering acuteness of her symptom although seems less likely as clinically she has convincing evidence of volume overload. Recommendations --discussed with the dialysis nurse and we will start her on emergency dialysis. --aim for UF as tolerated to reach her dry weight, dialysis on 3K bath --continue on BiPAP as needed until she can be started on dialysis --consider lower extremity Doppler --avoid IV fluid --since tomorrow is her regular dialysis day, will assess tomorrow morning for need for dialysis --continue on phosphate binder with meals --no need for KISHA at this point, hemoglobin above 11 Order for dialysis center in EMR, discussed with on-call dialysis nurse, will be available for any question, concerns during dialysis treatment. Thank you for allowing me to participate in your patient's care. It was a pleasure to see Frieda
[2017-11-28] MEDS ORDERED: GLUCOSE 40% GEL 15 GM TUBE PO PRN (21:45)
[2017-11-28] MEDS ORDERED: ACETAMINOPHEN 325 MG TAB PO PRN (21:45)
[2017-11-28] MEDS ORDERED: GLUCAGON FOR INJ 1 MG VIAL SQ PRN (21:45)
[2017-11-28] MEDS ORDERED: MAGNESIUM HYDROXIDE SUSP 30 ML UDC PO PRN (21:45)
[2017-11-28] MEDS ORDERED: DEXTROSE 50% 50 ML SYR IV PRN (21:45)
[2017-11-28] MEDS ORDERED: ONDANSETRON INJ 2 MG/ML 2 ML VIAL IV PRN (21:45)
[2017-11-28] MEDS ORDERED: ICU PROTOCOL FOR HYPERGLYCEMIA PRN (21:45)
[2017-11-28] MEDS ORDERED: GLUCOSE 10 TABS/TUBE PO PRN (21:45)
[2017-11-28] MEDS ORDERED: CALCIUM ACETATE 667MG GELCAP PO PRN (22:00)
[2017-11-28] MEDS ORDERED: FUROSEMIDE INJ 40 MG in SYRINGE 0 ML IV SCH (22:00)
[2017-11-28] MEDS ORDERED: CALCIUM CARBONATE 500 MG CHEWABLE PO PRN (22:00)
[2017-11-28] MEDS ORDERED: PSYLLIUM 58.6% PWD PACK S\\F PO PRN (22:00)
[2017-11-28] MEDS ORDERED: OXYCODONE/ACETAMINOPHEN 5-325 TAB PO PRN (22:00)
--- NOTE | 2017-11-28 22:01 | Critical Care Consultation ---
Critical Care Consultation Date of Consultation: Nov 28, 2017. Attending Physician: Reason for Consultation: 67-year-old female with end-stage renal disease requiring dialysis Saturday/ Saturday/Saturday and acute volume overload with respiratory distress requiring emergent hemodialysis and positive pressure ventilation. History of Present Illness Patient is a 67-year-old female with a significant past medical history of end- stage renal disease secondary to long-standing diabetes requiring hemodialysis on Mondays/Wednesdays/Fridays. This week, secondary to include weather, the patient was dialyzed on Saturday. She was to receive hemodialysis on Saturday, however, this evening, she developed abrupt onset of shortness of breath. She was brought to the emergency department where she was found to have volume overload with pulmonary vascular congestion. She was placed on BiPAP with moderate relief of symptoms. Costs station was placed with nephrology and emergent hemodialysis was recommended. Nitropaste was placed to the patient's chest secondary to hypertension in the setting of volume overload. Upon arrival to the ICU, the patient is resting comfortably on BiPAP. After receiving 40 mg Lasix in the ED, she does feel somewhat better. The patient does put out a scant amount of urine. She reports that she had been feeling well up until today. She reports that when the shortness of breath developed, she had associated nausea. She did not vomit, however. Currently, she is resting comfortably and feels much better. The patient reports no history of coronary artery disease or similar episodes in the past. She denies any current headaches, dizziness, lightheadedness, chest pain, palpitations, shortness of breath, pleuritic pain, hematemesis, hematochezia, melena, or dysuria. Patient is a 67-year-old female who denies a significant past medical history for smoking or alcohol use. Past Medical/Surgical History Medical Problems: (1) acute renal failure, DKA, PNA (2) Anemia (3) Benign hypertension with ESRD (end-stage renal disease) (4) Diabetes (5) ESRD (end stage renal disease) on dialysis (6) Hyperparathyroidism due to ESRD on dialysis (7) Hypertensive emergency (8) Hypoxia (9) Liver failure (10) Pulmonary edema (11) Renal failure (12) Secondary hyperparathyroidism of renal origin (13) Shortness of breath (14) Von Willebrand disease Family History No pertinent family history Noncontributory Social History Smoking Status: Never Smoker Smokeless Tobacco Use: No Alcohol Use: none Drug Use: none Marital Status: Housing Status: lives with family Occupation Status: retired Allergies Coded Allergies: Adhesives (Verified Allergy, Intermediate, RASH, 11/28/17) Amoxicillin (Verified Allergy, Intermediate, RASH, 11/28/17) Ampicillin (Verified Allergy, Intermediate, RASH, 11/28/17) Erythromycin (Verified Allergy, Intermediate, RASH, 11/28/17) Etodolac (Verified Allergy, Intermediate, RASH, 11/28/17) Penicillins (Verified Allergy, Intermediate, RASH, 11/28/17) Sulfa Antibiotics (Verified Allergy, Intermediate, RASH, 11/28/17) Aspirin (Verified Allergy, Mild, RASH, 11/28/17) Sevelamer (Verified Allergy, Mild, rash, 11/28/17) Home Medications Scheduled Calcium Acetate (Phoslo 667 Mg), 3 CAPSULES PO WM Calcium Acetate (Phoslo 667 Mg), 1 CAP PO with snacks Cholecalciferol (Vitamin D3), 1,000 UNITS PO DAILY Furosemide (Furosemide), 80 MG PO QAM Insulin Glargine (Lantus), 7 UNITS SC QAM Lisinopril (Zestril), 40 MG PO HS Metoprolol Tartrate (Lopressor) (Lopressor), 50 MG PO BID Multiple Vitamins W/ Minerals (Prorenal Vital), 1 TAB PO DAILY Scheduled PRN Calcium Carbonate (Tums), 2 TABS PO WM PRN for Dyspepsia Insulin Aspart (Novolog Flexpen), 0-40 UNITS SQ MEALS AFTER 1700 PRN for 1 UNIT FOR EVERY SEVEN CARBS Oxycodone/Acetaminophen 5MG/325MG (Percocet 5MG/325MG), 1-2 TABLETS PO Q4H PRN for Pain Psyllium (Metamucil Fiber), 1 TSP PO DAILY PRN for Constipation Current Inpatient Medications Current Inpatient Medications Medications (Trade) Dose Ordered Sig/Eduardo Route Start Time Stop Time Status Last Admin Dose Admin Nitroglycerin (Nitrostat Tab) 0.4 mg PRN PRN SL 11/28/17 20:15 12/28/17 20:14 11/28/17 20:23 0.4 MG Heparin Sodium (Porcine) (Heparin Sq 5000 Unit/0.5ml) 5,000 unit Q8H SQ 11/28/17 21:45 12/28/17 21:44 UNV Acetaminophen (Tylenol Tab) 650 mg Q4H PRN PO 11/28/17 21:45 12/28/17 21:44 Magnesium Hydroxide (Milk Of Magnesia Susp) 30 ml Q12H PRN PO 11/28/17 21:45 12/28/17 21:44 Ondansetron HCl (Zofran Inj) 4 mg Q6H PRN IV 11/28/17 21:45 12/28/17 21:44 Miscellaneous Information (Icu Protocol For Hyperglycemia) 1 ea PRN PRN N/A 11/28/17 21:45 11/30/17 21:44 UNV Insulin Glargine (Lantus Solostar Pen) 13 units Q12 SC 11/29/17 09:00 12/29/17 08:59 UNV Insulin Aspart (novoLOG ASPART) SLIDING SCALE If C... ACHS SC 11/29/17 07:00 12/29/17 06:59 UNV Glucose (Glucose 40% Gel) 15-30 GRAMS 15 GRAMS... UD PRN PO 11/28/17 21:45 12/28/17 21:44 Glucose (Glucose Chew Tab) 4-8 Tablets 4 Tabl... UD PRN PO 11/28/17 21:45 12/28/17 21:44 Dextrose (Dextrose 50% 50ML Syringe) 25-50ML OF 50% DW IV FOR... UD PRN IV 11/28/17 21:45 12/28/17 21:44 Glucagon (Glucagon Inj) 1 mg UD PRN SQ 11/28/17 21:45 12/28/17 21:44 Nitroglycerin (Nitroglycerin 2% Oint) 0.5 inch Q6H EXT 11/28/17 22:00 12/28/17 21:59 UNV Furosemide 40 mg/ Syringe 4 ml @ 4 mls/min ONE ONCE IV 11/28/17 22:00 11/28/17 22:01 UNV Review of Systems A complete 10-point Review of Systems was discussed with the patient, with pertinent positives and negatives listed in the History of Present Illness. All remaining Review of Systems questions can be considered negative unless otherwise specified. Physical Exam Date Time Temp Pulse Resp B/P (MAP) Pulse Ox O2 Delivery O2 Flow Rate FiO2 11/28/17 21:00 83 20 170/89 97 BiPAP 11/28/17 20:54 83 20 170/89 97 BiPAP 11/28/17 20:37 93 96 40 11/28/17 20:30 85 20 159/86 98 BiPAP 11/28/17 19:45 111 11/28/17 19:36 111 36 94 Nasal Cannula 6.0 11/28/17 19:28 37.5 106 30 215/99 79 Room Air VITAL SIGNS - Vital signs and nursing notes were reviewed. GENERAL - 67-year-old female appearing her stated age who is in no acute distress. Communicates well with provider and answers questions appropriately. SKIN - Without rashes. HEAD - NC/AT. EYES - PERRL with EOMI bilaterally. Sclera anicteric. Palpebral conjunctiva pink and moist with no injection noted. EARS - No deformities of external structures noted on gross examination bilaterally. NOSE - Midline and without cyanosis. MOUTH/OROPHARYNX - Without perioral cyanosis. Buccal mucosa pink and moist and without leukoplakia. NECK - Neck with FROM. Supple to palpation. No lymphadenopathy noted. No nuchal rigidity. LUNGS - Chest wall symmetric without accessory muscle use, intercostals retractions, or central cyanosis. Normal vesicular breath sounds CTA B/L. No wheezes, rales, or rhonchi appreciated. CARDIAC - RRR with S1/S2. No murmur, rubs, or gallops appreciated. ABDOMEN - Abdominal contour flat without pulsations or visible masses. BS normoactive all four quadrants. No tenderness, palpable masses, hepatosplenomegaly, or ascites noted. EXTREMITIES - No clubbing or peripheral cyanosis. No pretibial edema present. +3 /5 radial and dorsalis pedis pulses palpated throughout. AV fistula noted to the LEFT Forearm. NEUROLOGIC - Cranial nerves II through XII grossly intact. Sensory intact to light touch throughout. PSYCH - A&Ox3 and cooperates fully with examiner. Pt is very pleasant and interacts well with examiner. Laboratory Results Last 24 Hours Test 11/28/17 19:46 11/28/17 19:50 11/28/17 20:01 11/28/17 20:03 Creatine Kinase MB Ratio White Blood Count 22.80 K/uL Red Blood Count 4.00 M/uL Hemoglobin 12.4 g/dL Hematocrit 38.2 % Mean Corpuscular Volume 95.5 fL Mean Corpuscular Hemoglobin 31.0 pg Mean Corpuscular Hemoglobin Concent 32.5 g/dl Platelet Count 361 K/uL Mean Platelet Volume 8.6 fL Neutrophils (%) (Auto) 94.9 % Lymphocytes (%) (Auto) 3.3 % Monocytes (%) (Auto) 1.3 % Eosinophils (%) (Auto) 0.0 % Basophils (%) (Auto) 0.1 % Neutrophils # (Auto) 21.64 K/uL Lymphocytes # (Auto) 0.76 K/uL Monocytes # (Auto) 0.29 K/uL Eosinophils # (Auto) 0.00 K/uL Basophils # (Auto) 0.02 K/uL RDW Standard Deviation 55.5 fL RDW Coefficient of Variation 16.3 % Immature Granulocyte % (Auto) 0.4 % Immature Granulocyte # (Auto) 0.09 K/uL Red Blood Cell Morphology Unremarkable Sodium Level 131 mmol/L Potassium Level mmol/L Chloride Level 94 mmol/L Carbon Dioxide Level 25 mmol/L Anion Gap 12.0 mmol/L Blood Urea Nitrogen 44 mg/dl Creatinine 6.43 mg/dl Est Creatinine Clear Calc Drug Dose 6.6 ml/min Estimated GFR () 7.1 Estimated GFR (Non- 6.1 BUN/Creatinine Ratio 6.8 Random Glucose 152 mg/dl Calcium Level 8.8 mg/dl Total Creatine Kinase U/L Creatine Kinase MB 3.0 ng/ml Bedside Troponin I < 0.030 ng/ml Bedside Lactic Acid Venous 3.00 mmol/L Test 11/28/17 20:06 11/28/17 20:34 Bedside Glucose 173 mg/dl Potassium Level 3.6 mmol/L Total Creatine Kinase 38 U/L Diagnostic Results Radiological imaging and reports were reviewed by myself. Radiologist's Interpretation as follows: CHEST ONE VIEW PORTABLE CLINICAL HISTORY: 67 years-old Female presenting with CHEST PAIN. TECHNIQUE: Portable upright AP view of the chest was obtained. COMPARISON: 10/17/2017. FINDINGS: Atherosclerosis of aortic arch. Cardiac silhouette enlarged. Bronchial wall thickening. Pulmonary vascular prominence. Increased reticular lung markings as well as increased hazy bibasilar opacities. Increased small bilateral pleural effusions. Vascular stent noted in the left axilla. Osseous structures normal. Upper abdomen normal. IMPRESSION: 1. Findings most consistent with pulmonary edema setting of cardiomegaly. 2. Bilateral small pleural effusions. Assessment & Plan (1) Respiratory failure (2) Shortness of breath (3) Pulmonary edema (4) ESRD (end stage renal disease) on dialysis (5) Von Willebrand disease (6) Hypertension Reason Critically Ill: 67-year-old female with end-stage renal disease requiring dialysis Saturday/Saturday/Saturday and acute volume overload with respiratory distress requiring emergent hemodialysis and positive pressure ventilation. Neuro - * CAM ICU: NEGATIVE * Chronic Pain: continue home Percocet Cardiac - * Acute volume overload: * Certainly can be attributed to her missed dialysis. * Of concern, the patient does have a known h/o Aortic Regurgitation from Echo on 09/2017. For the sake of completeness and the acuity of onset, a repeat echo was ordered for evaluation of possible acutely worsening valvular disease superimposed on ARF. * ECHO (10/18/2017): * -- Conclusions -- * There is normal left ventricular wall thickness. * No regional wall motion abnormalities noted. * The LV Ejection Fraction = 55-60%. * The left atrium is mildly dilated. * Trace aortic regurgitation. * There is mild to moderate mitral regurgitation. * There is mild to moderate tricuspid regurgitation. * Grade I diastolic dysfunction, (abnormal relaxation pattern). * The left atrial filling pressure is elevated based on 2 D and Doppler datat. * Mild pulmonary hypertension is present. * The PA systolic pressure is calculated to be 45 mm Hg assuming a right atrial pressure of 3 mm Hg. * A large left pleural effusion is present. * Will monitor on telemetry. Respiratory - * Acute Respiratory Distress secondary to volume overload: * BiPAP PRN for positive pressure in acute phase. * Titrate down as tolerated. GI - * Will add diet back on when off BiPAP RENAL/LYTES - * Chronic Kidney Disease w/ HD M/W/F in acute volume overload requiring emergent HD: * HD per Nephrology. * Appreciate guidance in this situation. - * Will check urine as she is not completely anuric at this point. ENDO - * IDDM: * ISS/gtt per protocols. * Hyperparathyroidism: * Continue home Rx. HEME - * Stable H&H - will monitor. * h/o Von Willebrand Disease: * Monitor for any bleeding. ID - * Leukocytosis: * Recently treated for ruptured appendix. * No abdominal pain today. * Likely stress related. * Will repeat. * Trend Lactic. * Add ProCal to help clarify. LINES/IV ACCESS - * PIVs intact DVT PROPHYLAXIS - * Heparin SQ * SCDs I have personally spent 35 minutes of critical care time in the direct management of this patient. This is a life/limb threatening event. This includes time spent evaluating patient, direct bedside care, chart review, placing orders, interpretation of diagnostic studies, discussion with consultants, patient, and family members, as well as other required patient management activities. This time is exclusive of all separately billable procedures, and teaching time and separate from and in addition to any other critical care service time. Thank you for this consultation allow us to be part of this patient's care. Please refer to my attending physician's documentation for any further recommendations. Problem Qualifiers (1) Pulmonary edema: Chronicity: acute Qualified Codes: J81.0 - Acute pulmonary edema
--- NOTE | 2017-11-28 22:16 | History and Physical ---
History & Physical Date & Time of Service: Nov 28, 2017 at 22:05 Chief Complaint: SOB Primary Care Physician: Sixto Bella M.D. History of Present Illness Source: patient, clinic records, hospital records 67 yo hemodialysis patient who presents with shortness of breath, found to be hypoxic 2/2 volume overload. She was short of breath with a nonproductive cough just beginning this evening. BP was found to be >200 in the ER. She was last dialyzed on although she is a MWF dialysis schedule and this was because of the weather. She is under the care of Dr. Posey. On presentation she was oxygenating 83% on room air and was diaphoretic in respiratory distress. She was given nebulizers and placed on oxygen. She was given nitro and Lasix IV 40, however, persisted in respiratory distress. She was subsequently placed on BIPAP and became more comfortable. She will be transferred to the ICU. She denies any recent cough, fevers, chills, sick contacts, travel. She denies eating an excessive amount of salty foods and has been compliant with her Lasix. She was discharged from the hospital with conservative, non-operative management of a ruptured appendix and has some underlying RLQ discomfort, but nothing that is worse or limiting. She has been tolerating PO without difficulty and is under the care of Dr. Ryan as an outpatient. She denies chest pain and is making urine without issues. She denies any issues with bowel movements. Her ankles are swollen and edematous which she says is par for the course and chronic for her. She watches her weight and reports a 2 pound weight gain in the last week. She denies any significant weight gain or swelling that is new. Past Medical/Surgical History Medical Problems: (1) Benign hypertension with ESRD (end-stage renal disease) Status: Chronic (2) Diabetes Status: Chronic (3) ESRD (end stage renal disease) on dialysis Status: Chronic (4) Hyperparathyroidism due to ESRD on dialysis Status: Chronic (5) Hypertension Status: Chronic (6) Von Willebrand disease Status: Chronic Surgical Problems: (1) S/P appy Status: Chronic Family History No pertinent family history Social History Smoking Status: Never Smoker Smokeless Tobacco Use: No Alcohol Use: none Drug Use: none Marital Status: Housing status: lives with significant other Occupational Status: retired Immunizations History of Influenza Vaccine: Yes Influenza Vaccine Date: Sep 27, 2017 History of Tetanus Vaccine?: Unknown History of Pneumococcal: Yes Pneumococcal Date: Nov 01, 2016 History of Hepatitis B Vaccine: Unknown Multi-Drug Resistant Organisms History of MDRO: No Allergies Coded Allergies: Adhesives (Verified Allergy, Intermediate, RASH, 11/28/17) Amoxicillin (Verified Allergy, Intermediate, RASH, 11/28/17) Ampicillin (Verified Allergy, Intermediate, RASH, 11/28/17) Erythromycin (Verified Allergy, Intermediate, RASH, 11/28/17) Etodolac (Verified Allergy, Intermediate, RASH, 11/28/17) Penicillins (Verified Allergy, Intermediate, RASH, 11/28/17) Sulfa Antibiotics (Verified Allergy, Intermediate, RASH, 11/28/17) Aspirin (Verified Allergy, Mild, RASH, 11/28/17) Sevelamer (Verified Allergy, Mild, rash, 11/28/17) Home Medications Scheduled Calcium Acetate (Phoslo 667 Mg), 3 CAPSULES PO WM Calcium Acetate (Phoslo 667 Mg), 1 CAP PO with snacks Cholecalciferol (Vitamin D3), 1,000 UNITS PO DAILY Furosemide (Furosemide), 80 MG PO QAM Insulin Glargine (Lantus), 7 UNITS SC QAM Lisinopril (Zestril), 40 MG PO HS Metoprolol Tartrate (Lopressor) (Lopressor), 50 MG PO BID Multiple Vitamins W/ Minerals (Prorenal Vital), 1 TAB PO DAILY Scheduled PRN Calcium Carbonate (Tums), 2 TABS PO WM PRN for Dyspepsia Insulin Aspart (Novolog Flexpen), 0-40 UNITS SQ MEALS AFTER 1700 PRN for 1 UNIT FOR EVERY SEVEN CARBS Oxycodone/Acetaminophen 5MG/325MG (Percocet 5MG/325MG), 1-2 TABLETS PO Q4H PRN for Pain Psyllium (Metamucil Fiber), 1 TSP PO DAILY PRN for Constipation Review of Systems AT least ten systems were reviewed and negative except as indicated in HPI Physical Exam Vital Signs Date Time Temp Pulse Resp B/P (MAP) Pulse Ox O2 Delivery O2 Flow Rate FiO2 11/28/17 21:00 83 20 97 BiPAP 11/28/17 20:54 83 20 97 BiPAP 11/28/17 20:37 93 96 40 11/28/17 20:30 85 20 159/86 98 BiPAP 11/28/17 19:45 111 11/28/17 19:36 111 36 94 Nasal Cannula 6.0 11/28/17 19:28 37.5 106 30 215/99 79 Room Air General Appearance: WD/WN, + mild distress (comfortable on BIPAP, but distressed if taken off for only 2 minutes with subsequent hypoxia. ) Head: normocephalic, atraumatic Eyes: normal inspection, sclerae normal ENT: hearing grossly normal Neck: supple, trachea midline Respiratory/Chest: + decreased breath sounds, + accessory muscle use, + crackles (crackles at bases), + rhonchi (rhonchi and decreased breath sounds at bases. 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, alert, normal mood/affect, oriented x 3 Skin: normal color, warm/dry Diagnostics Laboratory Results 11/29/17 08:39 11/29/17 08:39 Test 11/28/17 19:46 11/28/17 19:50 11/28/17 20:01 11/28/17 20:03 Creatine Kinase MB Ratio (0-3.0) Immature Granulocyte % (Auto) 0.4 % White Blood Count 22.80 K/uL (4.8-10.8) Red Blood Count 4.00 M/uL (4.2-5.4) Hemoglobin 12.4 g/dL (12.0-16.0) Hematocrit 38.2 % (37-47) Mean Corpuscular Volume 95.5 fL (80-100) Mean Corpuscular Hemoglobin 31.0 pg (25-34) Mean Corpuscular Hemoglobin Concent 32.5 g/dl (32-36) Platelet Count 361 K/uL (130-400) Mean Platelet Volume 8.6 fL (7.4-10.4) Neutrophils (%) (Auto) 94.9 % Lymphocytes (%) (Auto) 3.3 % Monocytes (%) (Auto) 1.3 % Eosinophils (%) (Auto) 0.0 % Basophils (%) (Auto) 0.1 % Neutrophils # (Auto) 21.64 K/uL (1.4-6.5) Lymphocytes # (Auto) 0.76 K/uL (1.2-3.4) Monocytes # (Auto) 0.29 K/uL (0.11-0.59) Eosinophils # (Auto) 0.00 K/uL (0-0.5) Basophils # (Auto) 0.02 K/uL (0-0.2) Immature Granulocyte # (Auto) 0.09 K/uL (0.00-0.02) Red Blood Cell Morphology Unremarkable Creatine Kinase MB 3.0 ng/ml (0.5-3.6) Bedside Troponin I < 0.030 ng/ml (0-0.045) Bedside Lactic Acid Venous 3.00 mmol/L (0.90-1.70) Test 11/28/17 20:34 11/29/17 00:30 11/29/17 06:14 11/29/17 08:39 Total Creatine Kinase 38 U/L (26-192) Bedside Glucose 103 mg/dl (70-90) Estimated Average Glucose 160 mg/dl Hemoglobin A1c 7.2 % (4.5-5.6) Lactic Acid Level 1.4 mmol/L (0.4-2.0) Troponin I 1.010 ng/ml (0-0.045) Procalcitonin 41.97 ng/ml (0-0.5) Red Blood Count 3.92 M/uL (4.2-5.4) Mean Corpuscular Volume 95.4 fL (80-100) Mean Corpuscular Hemoglobin 30.4 pg (25-34) Mean Corpuscular Hemoglobin Concent 31.8 g/dl (32-36) RDW Standard Deviation 56.8 fL (36.4-46.3) RDW Coefficient of Variation 16.7 % (11.5-14.5) Mean Platelet Volume 8.6 fL (7.4-10.4) Prothrombin Time 11.4 SECONDS (9.0-12.0) Prothromb Time International Ratio 1.1 (0.9-1.1) Activated Partial Thromboplast Time 33.0 SECONDS (21.0-31.0) Partial Thromboplastin Ratio 1.3 Anion Gap 9.0 mmol/L (3-11) Est Creatinine Clear Calc Drug Dose 11.7 ml/min Estimated GFR () 14.3 Estimated GFR (Non- 12.3 BUN/Creatinine Ratio 5.3 (10-20) Calcium Level 8.4 mg/dl (8.5-10.1) Phosphorus Level 4.0 mg/dl (2.5-4.9) Magnesium Level 2.2 mg/dl (1.8-2.4) Total Bilirubin 0.4 mg/dl (0.2-1) Direct Bilirubin 0.1 mg/dl (0-0.2) Aspartate Amino Transf (AST/SGOT) 29 U/L (15-37) Alanine Aminotransferase (ALT/SGPT) 28 U/L (12-78) Alkaline Phosphatase 321 U/L (45-117) Total Protein 7.2 gm/dl (6.4-8.2) Albumin 2.4 gm/dl (3.4-5.0) Date/Time Source Procedure Growth Status 11/28/17 19:50 Blood Blood Culture Pending Received 11/28/17 23:00 Nasal MRSA DNA Surveillance Screen - Final Specimen Negative for MRSA by DNA Probe Complete Results Past 24 Hours Test 11/28/17 19:46 11/28/17 19:50 11/28/17 20:01 11/28/17 20:03 Range/Units Creatine Kinase MB Ratio 0-3.0 White Blood Count 22.80 4.8-10.8 K/uL Red Blood Count 4.00 4.2-5.4 M/uL Hemoglobin 12.4 12.0-16.0 g/dL Hematocrit 38.2 37-47 % Mean Corpuscular Volume 95.5 80-100 fL Mean Corpuscular Hemoglobin 31.0 25-34 pg Mean Corpuscular Hemoglobin Concent 32.5 32-36 g/dl Platelet Count 361 130-400 K/uL Mean Platelet Volume 8.6 7.4-10.4 fL Neutrophils (%) (Auto) 94.9 % Lymphocytes (%) (Auto) 3.3 % Monocytes (%) (Auto) 1.3 % Eosinophils (%) (Auto) 0.0 % Basophils (%) (Auto) 0.1 % Neutrophils # (Auto) 21.64 1.4-6.5 K/uL Lymphocytes # (Auto) 0.76 1.2-3.4 K/uL Monocytes # (Auto) 0.29 0.11-0.59 K/uL Eosinophils # (Auto) 0.00 0-0.5 K/uL Basophils # (Auto) 0.02 0-0.2 K/uL RDW Standard Deviation 55.5 36.4-46.3 fL RDW Coefficient of Variation 16.3 11.5-14.5 % Immature Granulocyte % (Auto) 0.4 % Immature Granulocyte # (Auto) 0.09 0.00-0.02 K/uL Red Blood Cell Morphology Unremarkable Sodium Level 131 136-145 mmol/L Potassium Level 3.5-5.1 mmol/L Chloride Level 94 98-107 mmol/L Carbon Dioxide Level 25 21-32 mmol/L Anion Gap 12.0 3-11 mmol/L Blood Urea Nitrogen 44 7-18 mg/dl Creatinine 6.43 0.60-1.20 mg/dl Est Creatinine Clear Calc Drug Dose 6.6 ml/min Estimated GFR () 7.1 Estimated GFR (Non- 6.1 BUN/Creatinine Ratio 6.8 10-20 Random Glucose 152 70-99 mg/dl Calcium Level 8.8 8.5-10.1 mg/dl Total Creatine Kinase 26-192 U/L Creatine Kinase MB 3.0 0.5-3.6 ng/ml Bedside Troponin I < 0.030 0-0.045 ng/ml Bedside Lactic Acid Venous 3.00 0.90-1.70 mmol/L Test 11/28/17 20:06 11/28/17 20:34 Range/Units Bedside Glucose 173 70-90 mg/dl Potassium Level 3.6 3.5-5.1 mmol/L Total Creatine Kinase 38 26-192 U/L Microbiology Results 11/28/17 Blood Culture, Received Pending 11/28/17 Blood Culture, Received Pending Diagnostic Radiology CHEST ONE VIEW PORTABLE CLINICAL HISTORY: 67 years-old Female presenting with CHEST PAIN. TECHNIQUE: Portable upright AP view of the chest was obtained. COMPARISON: 10/17/2017. FINDINGS: Atherosclerosis of aortic arch. Cardiac silhouette enlarged. Bronchial wall thickening. Pulmonary vascular prominence. Increased reticular lung markings as well as increased hazy bibasilar opacities. Increased small bilateral pleural effusions. Vascular stent noted in the left axilla. Osseous structures normal. Upper abdomen normal. IMPRESSION: 1. Findings most consistent with pulmonary edema setting of cardiomegaly. 2. Bilateral small pleural effusions. SINGLE VIEW CHEST CLINICAL HISTORY: CHF. FINDINGS: An AP, portable, upright chest radiograph is compared to study performed earlier the same day 11/28/2017 and correlated with chest CT dated 10/17/2017. The examination is degraded by portable technique and patient rotation. The heart is enlarged and there is atherosclerotic calcification of the thoracic aorta. Pulmonary vascular congestion is a most completely resolved. There are small layering pleural effusions with bibasilar atelectasis. No pneumothorax is seen. The skeletal structures are osteopenic. The bony thorax is grossly intact. Arthritic change is seen in the shoulders and thoracic spine. Vascular stents are noted in the left axilla. IMPRESSION: 1. Cardiomegaly. Pulmonary vascular congestion has a most completely resolved. 2. Small layering pleural effusions with bibasilar atelectasis. EKG SR 82, LVH Impression Assessment and Plan 67 yo diabetic female with ESRD on dialysis presents with acute SOB and fluid overload. 1. Hypoxic respiratory failure 2/2 fluid overload-improvement with nitro and Lasix in the ER. Gave another 40mg IV now. Cont nitropaste for BP control and help with pulmonary edema until definitive care with dialysis can be provided. Pt going to ICU who will assume management at this time. 2. ESRD on HD-Nephro consulted and case discussed with ER provider. Plan for emergent HD. 3. DMII-ISS/carb coverage. Made NPO while respiratory distress on BIPAP 4. von Willebrand's Disease-no active bleeding 5. s/p ruptured appendix managed conservatively-no abx 6. HTN-lisinopril, Lopressor DVT proph-heparin Full Code Dispo- to ICU Approximately 60 minutes was spent on record review, history and physical examination, d/w staff, CXR and lab review and processing her into the ICU. Denise Wilkerson DO [facility] Level of Care Critical Care Resuscitation Status FULL RESUSCITATION VTE Prophylaxis VTE Risk Assessment Done? Y/N: Yes Risk Level: Moderate Given or contraindicated: Unfractionated heparin SQ Note Total Time: Critical Care 30 - 74 minutes
[2017-11-29] VITALS (24 sets, daily range): BP systolic 97–167; BP diastolic 53–74; PULSE 60–70; TEMP 36.5–36.7; O2SAT 93–100
[2017-11-29] MEDS ORDERED: ICU PROTOCOL FOR HYPERGLYCEMIA PRN (02:30)
[2017-11-29] MEDS ORDERED: NURSING VERBAL MED ORDER ONE (03:00)
[2017-11-29] MEDS ORDERED: NITROGLYCERIN 2% OINTMENT 30GM TUBE EXT SCH (04:00)
[2017-11-29] MEDS ORDERED: HEPARIN SOD 5000 UNIT/0.5 ML CARP SQ SCH (06:00)
[2017-11-29 06:52] LABS: INR 1.1 (0.9-1.1)
[2017-11-29 07:00] LABS: HEMOGLOBIN A1C 7.2 % (4.5-5.6)
--- NOTE | 2017-11-29 07:31 | DIAGNOSTIC IMAGING REPORT ---
SINGLE VIEW CHEST CLINICAL HISTORY: CHF. FINDINGS: An AP, portable, upright chest radiograph is compared to study performed earlier the same day 11/28/2017 and correlated with chest CT dated 10/17/2017. The examination is degraded by portable technique and patient rotation. The heart is enlarged and there is atherosclerotic calcification of the thoracic aorta. Pulmonary vascular congestion is a most completely resolved. There are small layering pleural effusions with bibasilar atelectasis. No pneumothorax is seen. The skeletal structures are osteopenic. The bony thorax is grossly intact. Arthritic change is seen in the shoulders and thoracic spine. Vascular stents are noted in the left axilla. IMPRESSION: 1. Cardiomegaly. Pulmonary vascular congestion has a most completely resolved. 2. Small layering pleural effusions with bibasilar atelectasis. Electronically signed by: Frankie Beckett M.D. 11/29/2017 7:30 AM Dictated Date/Time: 11/29/2017 7:28 AM
[2017-11-29] MEDS: CALCIUM ACETATE 667MG GELCAP PO SCH ×2 (07:54→11:50)
[2017-11-29] MEDS: INSULIN ASPART 100 UNITS/ML 3 ML PEN SC SCH ×2 (07:54→11:51)
[2017-11-29 08:54] LABS: HEMATOCRIT 37.4 % (37-47); HEMOGLOBIN 11.9 g/dL (12.0-16.0); MEAN CELL VOLUME 95.4 fL (80-100); MEAN CORPUSCULAR HEMOGLOBIN 30.4 pg (25-34); MEAN CORPUSCULAR HGB CONC 31.8 g/dl (32-36); MEAN PLATELET VOLUME 8.6 fL (7.4-10.4); PLATELET COUNT 250 K/uL (130-400); RED CELL DISTRIBUTION WIDTH CV 16.7 % (11.5-14.5); RED CELL DISTRIBUTION WIDTH SD 56.8 fL (36.4-46.3); WHITE BLOOD COUNT 14.75 K/uL (4.8-10.8)
[2017-11-29] MEDS ORDERED: CEROVITE ADV FORMULA TAB PO SCH (09:00)
[2017-11-29] MEDS ORDERED: METOPROLOL TARTRATE 50 MG TAB PO SCH (09:00)
[2017-11-29] MEDS ORDERED: CHOLECALCIFEROL 1000 INTER.UNIT TAB PO SCH (09:00)
[2017-11-29] MEDS ORDERED: INSULIN GLARGINE SOLOSTAR 100 UNITS/ML 3 ML PEN SC SCH ×2 (09:00→09:30)
[2017-11-29 09:04] LABS: INR 1.1 (0.9-1.1)
[2017-11-29 09:17] LABS: ALBUMIN 2.4 gm/dl (3.4-5.0); CALCIUM 8.4 mg/dl (8.5-10.1); CREATININE 3.59 mg/dl (0.60-1.20); POTASSIUM 4.4 mmol/L (3.5-5.1)
[2017-11-29 09:18] LABS: TOTAL PROTEIN 7.2 gm/dl (6.4-8.2)
--- NOTE | 2017-11-29 09:22 | Nephrology Progress Note ---
Nephrology Progress Note Date of Service Nov 29, 2017. Review of Systems A complete review of systems was performed. Pertinent positives are noted above. All other systems are negative. Vital Signs Last 8 Hrs Date Time Temp Pulse Resp B/P (MAP) Pulse Ox O2 Delivery O2 Flow Rate FiO2 11/29/17 06:00 70 21 93 Room Air Oxymask 11/29/17 05:00 63 17 124/54 (77) 94 Room Air Oxymask 11/29/17 04:00 96 Room Air 11/29/17 04:00 60 19 116/56 (76) 96 Room Air Oxymask 11/29/17 03:15 63 97/54 11/29/17 03:15 36.5 61 130/67 (88) 11/29/17 03:00 63 104/57 11/29/17 02:45 61 105/59 11/29/17 02:30 61 106/55 11/29/17 02:15 61 112/57 11/29/17 02:15 61 18 109/54 (72) 95 11/29/17 02:06 61 21 119/57 (77) 94 11/29/17 02:00 62 119/57 11/29/17 02:00 36.5 62 21 95 11/29/17 01:45 61 16 129/63 (85) 97 11/29/17 01:45 61 129/61 11/29/17 01:43 61 23 129/61 (83) 100 Room Air Oxymask 11/29/17 01:30 61 17 113/53 (73) 99 Oxymask 2.0 11/29/17 01:30 62 113/53 Last Recorded Weight Weight (Kilograms): 49.600 Family History No pertinent family history Social History Smokeless Tobacco Use: No Alcohol Use: none Drug Use: none Marital Status: Housing Status: lives with significant other 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 Laboratory Results Past 24 Hours 11/28/17 19:50 Red Blood Count 4.00, Mean Corpuscular Volume 95.5, Mean Corpuscular Hemoglobin 31.0, Mean Corpuscular Hemoglobin Concent 32.5, Mean Platelet Volume 8.6, Neutrophils (%) (Auto) 94.9, Lymphocytes (%) (Auto) 3.3, Monocytes (%) (Auto) 1.3, Eosinophils (%) (Auto) 0.0, Basophils (%) (Auto) 0.1, Neutrophils # (Auto) 21.64, Lymphocytes # (Auto) 0.76, Monocytes # (Auto) 0.29, Eosinophils # (Auto) 0.00, Basophils # (Auto) 0.02 11/29/17 08:39 11/28/17 19:50 11/28/17 20:34 11/29/17 08:39 Test 11/28/17 19:46 11/28/17 19:50 11/28/17 20:01 11/28/17 20:03 Creatine Kinase MB Ratio (0-3.0) White Blood Count 22.80 K/uL (4.8-10.8) Red Blood Count 4.00 M/uL (4.2-5.4) Hemoglobin 12.4 g/dL (12.0-16.0) Hematocrit 38.2 % (37-47) Mean Corpuscular Volume 95.5 fL (80-100) Mean Corpuscular Hemoglobin 31.0 pg (25-34) Mean Corpuscular Hemoglobin Concent 32.5 g/dl (32-36) Platelet Count 361 K/uL (130-400) Mean Platelet Volume 8.6 fL (7.4-10.4) Neutrophils (%) (Auto) 94.9 % Lymphocytes (%) (Auto) 3.3 % Monocytes (%) (Auto) 1.3 % Eosinophils (%) (Auto) 0.0 % Basophils (%) (Auto) 0.1 % Neutrophils # (Auto) 21.64 K/uL (1.4-6.5) Lymphocytes # (Auto) 0.76 K/uL (1.2-3.4) Monocytes # (Auto) 0.29 K/uL (0.11-0.59) Eosinophils # (Auto) 0.00 K/uL (0-0.5) Basophils # (Auto) 0.02 K/uL (0-0.2) RDW Standard Deviation 55.5 fL (36.4-46.3) RDW Coefficient of Variation 16.3 % (11.5-14.5) Immature Granulocyte % (Auto) 0.4 % Immature Granulocyte # (Auto) 0.09 K/uL (0.00-0.02) Red Blood Cell Morphology Unremarkable Anion Gap 12.0 mmol/L (3-11) Est Creatinine Clear Calc Drug Dose 6.6 ml/min Estimated GFR () 7.1 Estimated GFR (Non- 6.1 BUN/Creatinine Ratio 6.8 (10-20) Calcium Level 8.8 mg/dl (8.5-10.1) Total Creatine Kinase U/L (26-192) Creatine Kinase MB 3.0 ng/ml (0.5-3.6) Bedside Troponin I < 0.030 ng/ml (0-0.045) Bedside Lactic Acid Venous 3.00 mmol/L (0.90-1.70) Test 11/28/17 20:06 11/28/17 20:34 11/29/17 00:30 11/29/17 06:14 Bedside Glucose 173 mg/dl (70-90) 103 mg/dl (70-90) Total Creatine Kinase 38 U/L (26-192) Prothrombin Time 11.2 SECONDS (9.0-12.0) Prothromb Time International Ratio 1.1 (0.9-1.1) Estimated Average Glucose 160 mg/dl Hemoglobin A1c 7.2 % (4.5-5.6) Lactic Acid Level 1.4 mmol/L (0.4-2.0) Troponin I 1.010 ng/ml (0-0.045) Procalcitonin 41.97 ng/ml (0-0.5) Test 11/29/17 08:39 Red Blood Count 3.92 M/uL (4.2-5.4) Mean Corpuscular Volume 95.4 fL (80-100) Mean Corpuscular Hemoglobin 30.4 pg (25-34) Mean Corpuscular Hemoglobin Concent 31.8 g/dl (32-36) RDW Standard Deviation 56.8 fL (36.4-46.3) RDW Coefficient of Variation 16.7 % (11.5-14.5) Mean Platelet Volume 8.6 fL (7.4-10.4) Prothrombin Time 11.4 SECONDS (9.0-12.0) Prothromb Time International Ratio 1.1 (0.9-1.1) Activated Partial Thromboplast Time 33.0 SECONDS (21.0-31.0) Partial Thromboplastin Ratio 1.3 Anion Gap 9.0 mmol/L (3-11) Est Creatinine Clear Calc Drug Dose 11.7 ml/min Estimated GFR () 14.3 Estimated GFR (Non- 12.3 BUN/Creatinine Ratio 5.3 (10-20) Calcium Level 8.4 mg/dl (8.5-10.1) Phosphorus Level 4.0 mg/dl (2.5-4.9) Magnesium Level 2.2 mg/dl (1.8-2.4) Total Bilirubin 0.4 mg/dl (0.2-1) Direct Bilirubin 0.1 mg/dl (0-0.2) Aspartate Amino Transf (AST/SGOT) 29 U/L (15-37) Alanine Aminotransferase (ALT/SGPT) 28 U/L (12-78) Alkaline Phosphatase 321 U/L (45-117) Total Protein 7.2 gm/dl (6.4-8.2) Albumin 2.4 gm/dl (3.4-5.0) Date/Time Source Procedure Growth Status 11/28/17 23:00 Nasal MRSA DNA Surveillance Screen - Final Specimen Negative for MRSA by DNA Probe Complete Allergies Coded Allergies: Adhesives (Verified Allergy, Intermediate, RASH, 11/28/17) Amoxicillin (Verified Allergy, Intermediate, RASH, 11/28/17) Ampicillin (Verified Allergy, Intermediate, RASH, 11/28/17) Erythromycin (Verified Allergy, Intermediate, RASH, 11/28/17) Etodolac (Verified Allergy, Intermediate, RASH, 11/28/17) Penicillins (Verified Allergy, Intermediate, RASH, 11/28/17) Sulfa Antibiotics (Verified Allergy, Intermediate, RASH, 11/28/17) Aspirin (Verified Allergy, Mild, RASH, 11/28/17) Sevelamer (Verified Allergy, Mild, rash, 11/28/17) Medications Current Inpatient Medications Medications (Trade) Dose Ordered Sig/Eduardo Route Start Time Stop Time Status Last Admin Dose Admin Heparin Sodium (Porcine) (Heparin Sq 5000 Unit/0.5ml) 5,000 unit Q8H SQ 11/29/17 06:00 12/29/17 05:59 11/29/17 08:15 5,000 UNIT Acetaminophen (Tylenol Tab) 650 mg Q4H PRN PO 11/28/17 21:45 12/28/17 21:44 Magnesium Hydroxide (Milk Of Magnesia Susp) 30 ml Q12H PRN PO 11/28/17 21:45 12/28/17 21:44 Ondansetron HCl (Zofran Inj) 4 mg Q6H PRN IV 11/28/17 21:45 12/28/17 21:44 Miscellaneous Information (Icu Protocol For Hyperglycemia) 1 ea PRN PRN N/A 11/28/17 21:45 11/30/17 21:44 Insulin Glargine (Lantus Solostar Pen) 13 units Q12 SC 11/29/17 09:00 12/29/17 08:59 Insulin Aspart (novoLOG ASPART) SLIDING SCALE If C... ACHS SC 11/29/17 06:45 12/29/17 06:59 11/29/17 07:54 2 UNITS Glucose (Glucose 40% Gel) 15-30 GRAMS 15 GRAMS... UD PRN PO 11/28/17 21:45 12/28/17 21:44 Glucose (Glucose Chew Tab) 4-8 Tablets 4 Tabl... UD PRN PO 11/28/17 21:45 12/28/17 21:44 Dextrose (Dextrose 50% 50ML Syringe) 25-50ML OF 50% DW IV FOR... UD PRN IV 11/28/17 21:45 12/28/17 21:44 Glucagon (Glucagon Inj) 1 mg UD PRN SQ 11/28/17 21:45 12/28/17 21:44 Calcium Acetate (Phoslo Cap) 2,001 mg TIDM PO 11/29/17 07:15 12/29/17 07:59 11/29/17 07:54 2,001 MG Calcium Acetate (Phoslo Cap) 667 mg TIDM PRN PO 11/28/17 22:00 12/28/17 21:59 Calcium Carbonate (Tums Chew Tab) 1,000 mg DAILY PRN PO 11/28/17 22:00 12/28/17 21:59 Cholecalciferol (Vitamin D Tab) 1,000 inter.unit DAILY PO 11/29/17 09:00 12/29/17 08:59 11/29/17 07:54 1,000 INTER.UNIT Lisinopril (Zestril Tab) 40 mg HS PO 11/29/17 21:00 12/29/17 20:59 Metoprolol Tartrate (Lopressor Tab) 50 mg BID PO 11/29/17 09:00 12/29/17 08:59 11/29/17 07:54 50 MG Multivitamins/ Minerals (Multivitamin W/ Minerals Tab) 1 tab DAILY PO 11/29/17 09:00 12/29/17 08:59 11/29/17 07:54 1 TAB Oxycodone/ Acetaminophen (Percocet 5-325mg Tab) 1 tab Q4H PRN PO 11/28/17 22:00 12/12/17 21:59 Psyllium Hydrophilic Mucilloid (Metamucil Powder) 1 pkt DAILY PRN PO 11/28/17 22:00 12/28/17 21:59 Impression (1) ESRD (end stage renal disease) on dialysis (2) Hypoxia (3) Pulmonary edema (4) Hypertensive emergency (5) Anemia (6) Secondary hyperparathyroidism of renal origin Frieda is a 67-year-old female with past medical history significant for hypertension, end-stage renal disease on hemodialysis secondary to microvascular disease and hypertensive nephrosclerosis presents to the emergency room with acute onset of shortness of breath. On on arrival she was found to be hypoxic with oxygen saturation low 80s on room air, in hypertensive emergency with systolic blood pressure more than 215 and chest x-ray showing pulmonary vascular congestion. EKG and cardiac enzymes are unremarkable. She was started on IV Lasix, given nitro glycerin with improvement in blood pressure. Initially started with nasal cannula oxygen and transitioned to CPAP with improvement in respiratory status and oxygen saturation. Electrolyte pannus are unremarkable. She is on dialysis on Saturday, Saturday, Saturday however she had dialysis last on Saturday, it does short treatment for 2.5 hours due to weather related schedule change. She still makes urine. On exam she is clearly volume overloaded, her estimated dry weight is 49 kg and currently she is around 54 kg , almost 5 kg above her dry weight. Shortness of breath and pulmonary vascular condition could be secondary to net volume overload due to shorter dialysis treatment versus flash pulmonary edema with hypertensive emergency. Concern for DVT/PE remains considering acuteness of her symptom although seems less likely as clinically she has convincing evidence of volume overload. Recommendations --discussed with the dialysis nurse and we will start her on emergency dialysis. --aim for UF as tolerated to reach her dry weight, dialysis on 3K bath --continue on BiPAP as needed until she can be started on dialysis --consider lower extremity Doppler --avoid IV fluid --since tomorrow is her regular dialysis day, will assess tomorrow morning for need for dialysis --continue on phosphate binder with meals --no need for KISHA at this point, hemoglobin above 11 Order for dialysis center in EMR, discussed with on-call dialysis nurse, will be available for any question, concerns during dialysis treatment. Thank you for allowing me to participate in your patient's care. It was a pleasure to see Frieda
--- NOTE | 2017-11-29 09:53 | Nephrology Progress Note ---
Nephrology Progress Note Date of Service Nov 29, 2017. Chief Complaint ESRD Subjective Mrs. Turner was seen & examined in the ICU this morning. She presented to the hospital yesterday evening w/ CHF and required NIPPV and emergency hemodialysis. 4 L UF obtained. Patient was weaned from oxygen and CXR this am is clear. Mrs. Turner reports that she is breathing comfortably on room air this am. She has no angina. She is hoping to be discharged so that she can resume her regular outpatient HD this afternoon. Review of Systems Constitutional: No fever Cardiovascular: No angina Respiratory: No productive cough, No dyspnea at rest Abdomen: No pain, No nausea, No vomiting Extremities: No leg edema A complete review of systems was performed. Pertinent positives are noted above. All other systems are negative. Vital Signs Last 8 Hrs Date Time Temp Pulse Resp B/P (MAP) Pulse Ox O2 Delivery O2 Flow Rate FiO2 11/29/17 08:00 96 Room Air 11/29/17 08:00 66 18 156/66 (96) 96 Room Air 11/29/17 06:00 70 21 93 Room Air Oxymask 11/29/17 05:00 63 17 124/54 (77) 94 Room Air Oxymask 11/29/17 04:00 96 Room Air 11/29/17 04:00 60 19 116/56 (76) 96 Room Air Oxymask 11/29/17 03:15 63 97/54 11/29/17 03:15 36.5 61 130/67 (88) 11/29/17 03:00 63 104/57 11/29/17 02:45 61 105/59 11/29/17 02:30 61 106/55 11/29/17 02:15 61 112/57 11/29/17 02:15 61 18 109/54 (72) 95 11/29/17 02:06 61 21 119/57 (77) 94 11/29/17 02:00 62 119/57 11/29/17 02:00 36.5 62 21 95 11/29/17 01:45 61 16 129/63 (85) 97 11/29/17 01:45 61 129/61 11/29/17 01:43 61 23 129/61 (83) 100 Room Air Oxymask Last Recorded Weight Weight (Kilograms): 49.600 Physical Exam General Appearance: no apparent distress Head: normocephalic, atraumatic Eyes: PERRL, EOMI Neck: no adenopathy Respiratory/Chest: lungs clear, no respiratory distress Cardiovascular: regular rate, rhythm Abdomen/GI: normal bowel sounds, non tender, soft Extremities/Musculoskelatal: no calf tenderness, no pedal edema, + pertinent finding (L upper arm AVF + bruit) Neurologic/Psych: alert, oriented x 3 Family History No pertinent family history Social History Smokeless Tobacco Use: No Alcohol Use: none Drug Use: none Marital Status: Housing Status: lives with significant other 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 Laboratory Results Past 24 Hours 11/28/17 19:50 Red Blood Count 4.00, Mean Corpuscular Volume 95.5, Mean Corpuscular Hemoglobin 31.0, Mean Corpuscular Hemoglobin Concent 32.5, Mean Platelet Volume 8.6, Neutrophils (%) (Auto) 94.9, Lymphocytes (%) (Auto) 3.3, Monocytes (%) (Auto) 1.3, Eosinophils (%) (Auto) 0.0, Basophils (%) (Auto) 0.1, Neutrophils # (Auto) 21.64, Lymphocytes # (Auto) 0.76, Monocytes # (Auto) 0.29, Eosinophils # (Auto) 0.00, Basophils # (Auto) 0.02 11/29/17 08:39 11/28/17 19:50 11/28/17 20:34 11/29/17 08:39 Test 11/28/17 19:46 11/28/17 19:50 11/28/17 20:01 11/28/17 20:03 Creatine Kinase MB Ratio (0-3.0) White Blood Count 22.80 K/uL (4.8-10.8) Red Blood Count 4.00 M/uL (4.2-5.4) Hemoglobin 12.4 g/dL (12.0-16.0) Hematocrit 38.2 % (37-47) Mean Corpuscular Volume 95.5 fL (80-100) Mean Corpuscular Hemoglobin 31.0 pg (25-34) Mean Corpuscular Hemoglobin Concent 32.5 g/dl (32-36) Platelet Count 361 K/uL (130-400) Mean Platelet Volume 8.6 fL (7.4-10.4) Neutrophils (%) (Auto) 94.9 % Lymphocytes (%) (Auto) 3.3 % Monocytes (%) (Auto) 1.3 % Eosinophils (%) (Auto) 0.0 % Basophils (%) (Auto) 0.1 % Neutrophils # (Auto) 21.64 K/uL (1.4-6.5) Lymphocytes # (Auto) 0.76 K/uL (1.2-3.4) Monocytes # (Auto) 0.29 K/uL (0.11-0.59) Eosinophils # (Auto) 0.00 K/uL (0-0.5) Basophils # (Auto) 0.02 K/uL (0-0.2) RDW Standard Deviation 55.5 fL (36.4-46.3) RDW Coefficient of Variation 16.3 % (11.5-14.5) Immature Granulocyte % (Auto) 0.4 % Immature Granulocyte # (Auto) 0.09 K/uL (0.00-0.02) Red Blood Cell Morphology Unremarkable Anion Gap 12.0 mmol/L (3-11) Est Creatinine Clear Calc Drug Dose 6.6 ml/min Estimated GFR () 7.1 Estimated GFR (Non- 6.1 BUN/Creatinine Ratio 6.8 (10-20) Calcium Level 8.8 mg/dl (8.5-10.1) Total Creatine Kinase U/L (26-192) Creatine Kinase MB 3.0 ng/ml (0.5-3.6) Bedside Troponin I < 0.030 ng/ml (0-0.045) Bedside Lactic Acid Venous 3.00 mmol/L (0.90-1.70) Test 11/28/17 20:06 11/28/17 20:34 11/29/17 00:30 11/29/17 06:14 Bedside Glucose 173 mg/dl (70-90) 103 mg/dl (70-90) Total Creatine Kinase 38 U/L (26-192) Prothrombin Time 11.2 SECONDS (9.0-12.0) Prothromb Time International Ratio 1.1 (0.9-1.1) Estimated Average Glucose 160 mg/dl Hemoglobin A1c 7.2 % (4.5-5.6) Lactic Acid Level 1.4 mmol/L (0.4-2.0) Troponin I 1.010 ng/ml (0-0.045) Procalcitonin 41.97 ng/ml (0-0.5) Test 11/29/17 08:39 Red Blood Count 3.92 M/uL (4.2-5.4) Mean Corpuscular Volume 95.4 fL (80-100) Mean Corpuscular Hemoglobin 30.4 pg (25-34) Mean Corpuscular Hemoglobin Concent 31.8 g/dl (32-36) RDW Standard Deviation 56.8 fL (36.4-46.3) RDW Coefficient of Variation 16.7 % (11.5-14.5) Mean Platelet Volume 8.6 fL (7.4-10.4) Prothrombin Time 11.4 SECONDS (9.0-12.0) Prothromb Time International Ratio 1.1 (0.9-1.1) Activated Partial Thromboplast Time 33.0 SECONDS (21.0-31.0) Partial Thromboplastin Ratio 1.3 Anion Gap 9.0 mmol/L (3-11) Est Creatinine Clear Calc Drug Dose 11.7 ml/min Estimated GFR () 14.3 Estimated GFR (Non- 12.3 BUN/Creatinine Ratio 5.3 (10-20) Calcium Level 8.4 mg/dl (8.5-10.1) Phosphorus Level 4.0 mg/dl (2.5-4.9) Magnesium Level 2.2 mg/dl (1.8-2.4) Total Bilirubin 0.4 mg/dl (0.2-1) Direct Bilirubin 0.1 mg/dl (0-0.2) Aspartate Amino Transf (AST/SGOT) 29 U/L (15-37) Alanine Aminotransferase (ALT/SGPT) 28 U/L (12-78) Alkaline Phosphatase 321 U/L (45-117) Total Protein 7.2 gm/dl (6.4-8.2) Albumin 2.4 gm/dl (3.4-5.0) Date/Time Source Procedure Growth Status 11/28/17 23:00 Nasal MRSA DNA Surveillance Screen - Final Specimen Negative for MRSA by DNA Probe Complete Allergies Coded Allergies: Adhesives (Verified Allergy, Intermediate, RASH, 11/28/17) Amoxicillin (Verified Allergy, Intermediate, RASH, 11/28/17) Ampicillin (Verified Allergy, Intermediate, RASH, 11/28/17) Erythromycin (Verified Allergy, Intermediate, RASH, 11/28/17) Etodolac (Verified Allergy, Intermediate, RASH, 11/28/17) Penicillins (Verified Allergy, Intermediate, RASH, 11/28/17) Sulfa Antibiotics (Verified Allergy, Intermediate, RASH, 11/28/17) Aspirin (Verified Allergy, Mild, RASH, 11/28/17) Sevelamer (Verified Allergy, Mild, rash, 11/28/17) Medications Current Inpatient Medications Medications (Trade) Dose Ordered Sig/Eduardo Route Start Time Stop Time Status Last Admin Dose Admin Heparin Sodium (Porcine) (Heparin Sq 5000 Unit/0.5ml) 5,000 unit Q8H SQ 11/29/17 06:00 12/29/17 05:59 11/29/17 08:15 5,000 UNIT Acetaminophen (Tylenol Tab) 650 mg Q4H PRN PO 11/28/17 21:45 12/28/17 21:44 Magnesium Hydroxide (Milk Of Magnesia Susp) 30 ml Q12H PRN PO 11/28/17 21:45 12/28/17 21:44 Ondansetron HCl (Zofran Inj) 4 mg Q6H PRN IV 11/28/17 21:45 12/28/17 21:44 Miscellaneous Information (Icu Protocol For Hyperglycemia) 1 ea PRN PRN N/A 11/28/17 21:45 11/30/17 21:44 Insulin Aspart (novoLOG ASPART) SLIDING SCALE If C... ACHS SC 11/29/17 06:45 12/29/17 06:59 11/29/17 07:54 2 UNITS Glucose (Glucose 40% Gel) 15-30 GRAMS 15 GRAMS... UD PRN PO 11/28/17 21:45 12/28/17 21:44 Glucose (Glucose Chew Tab) 4-8 Tablets 4 Tabl... UD PRN PO 11/28/17 21:45 12/28/17 21:44 Dextrose (Dextrose 50% 50ML Syringe) 25-50ML OF 50% DW IV FOR... UD PRN IV 11/28/17 21:45 12/28/17 21:44 Glucagon (Glucagon Inj) 1 mg UD PRN SQ 2/8/18 21:45 12/28/17 21:44 Calcium Acetate (Phoslo Cap) 2,001 mg TIDM PO 11/29/17 07:15 12/29/17 07:59 11/29/17 07:54 2,001 MG Calcium Acetate (Phoslo Cap) 667 mg TIDM PRN PO 11/28/17 22:00 12/28/17 21:59 Calcium Carbonate (Tums Chew Tab) 1,000 mg DAILY PRN PO 11/28/17 22:00 12/28/17 21:59 Cholecalciferol (Vitamin D Tab) 1,000 inter.unit DAILY PO 11/29/17 09:00 12/29/17 08:59 11/29/17 07:54 1,000 INTER.UNIT Lisinopril (Zestril Tab) 40 mg HS PO 11/29/17 21:00 12/29/17 20:59 Metoprolol Tartrate (Lopressor Tab) 50 mg BID PO 11/29/17 09:00 12/29/17 08:59 11/29/17 07:54 50 MG Multivitamins/ Minerals (Multivitamin W/ Minerals Tab) 1 tab DAILY PO 11/29/17 09:00 12/29/17 08:59 11/29/17 07:54 1 TAB Oxycodone/ Acetaminophen (Percocet 5-325mg Tab) 1 tab Q4H PRN PO 11/28/17 22:00 12/12/17 21:59 Psyllium Hydrophilic Mucilloid (Metamucil Powder) 1 pkt DAILY PRN PO 11/28/17 22:00 12/28/17 21:59 Insulin Glargine (Lantus Solostar Pen) 7 units QAM SC 11/29/17 09:30 12/29/17 09:29 Impression (1) ESRD (end stage renal disease) on dialysis (2) Hypoxia (3) Pulmonary edema (4) Hypertensive emergency (5) Anemia (6) Secondary hyperparathyroidism of renal origin Mrs. Turner has a medical history significant for HTN, ESRD on IHD who presented to the emergency room with acute onset of shortness of breath. On on arrival she was found to be hypoxic with oxygen saturation low 80s on room air, in hypertensive emergency with systolic blood pressure more than 215 and chest x -ray showing pulmonary vascular congestion. EKG and cardiac enzymes are unremarkable. She was started on IV Lasix, given nitro glycerin with improvement in blood pressure. Initially started with nasal cannula oxygen and transitioned to CPAP with improvement in respiratory status and oxygen saturation. Electrolyte pannus are unremarkable. Mrs. Turner is on dialysis on MWF however she had dialysis last on Saturday, it does short treatment for 2.5 hours due to weather related schedule change. She was 5 kg above her dry weight. Shortness of breath and pulmonary vascular condition could be secondary to net volume overload due to shorter dialysis treatment versus flash pulmonary edema with hypertensive emergency. Recommendations Patient was seen & examined in the ICU this am. She completed 4 hours dialysis last evening for 4.5 L UF. Blood pressure is now controlled. Patient has been weaned off oxygen and is now breathing comfortably on room air. Physical exam reveals clear lung cortez and regular heart rhythm. CXR film reviewed this am. Pulmonary edema has resolved. Volume status and electrolyte balance are acceptable at this time. [facility] HD unit was contacted this am. They have a dialysis station available to provide Mrs. Turner w/ outpatient dialysis today if she is discharged from the hospital by 12 noon and transported to the outpatient unit. Mrs. Turner was agreeable w/ this plan. She indicated that she would be able to arrange transportation. Medical course has been discussed w/ the ICU team. They are facilitating patient's discharge. Please notify [facility] if discharge is postponed or patient remains hospitalized.
--- NOTE | 2017-11-29 10:45 | Critical Care Progress Note ---
Critical Care Progress Note Date of Service Nov 29, 2017. Attending Dr. Almazan Subjective S/p HD last night, removed 4 liters. Feels much improved today, no respiratory difficulty Objective General: NAD Heent: NC/AT Lungs: clear b/l CVS: S1S2 reg Abd: soft Ext: No edema Assessment & Plan Respiratory failure secondary to fluid overload ESRD on HD HTN von Willebrand disease Plan: She improved remarkably with HD. To resume her original schedule, she will go today as outpatient in the afternoon. May be transferred out of the ICU Primary team to discharge the patient if they agree with the plan. Will sign off Consults & Procedures Consultants: renal: Dr Decker Data Medications: Current Inpatient Medications Medications (Trade) Dose Ordered Sig/Eduardo Route Start Time Stop Time Status Last Admin Dose Admin Heparin Sodium (Porcine) (Heparin Sq 5000 Unit/0.5ml) 5,000 unit Q8H SQ 11/29/17 06:00 12/29/17 05:59 11/29/17 08:15 5,000 UNIT Acetaminophen (Tylenol Tab) 650 mg Q4H PRN PO 11/28/17 21:45 12/28/17 21:44 Magnesium Hydroxide (Milk Of Magnesia Susp) 30 ml Q12H PRN PO 11/28/17 21:45 12/28/17 21:44 Ondansetron HCl (Zofran Inj) 4 mg Q6H PRN IV 11/28/17 21:45 12/28/17 21:44 Miscellaneous Information (Icu Protocol For Hyperglycemia) 1 ea PRN PRN N/A 11/28/17 21:45 11/30/17 21:44 Insulin Aspart (novoLOG ASPART) SLIDING SCALE If C... ACHS SC 11/29/17 06:45 12/29/17 06:59 11/29/17 07:54 2 UNITS Glucose (Glucose 40% Gel) 15-30 GRAMS 15 GRAMS... UD PRN PO 11/28/17 21:45 12/28/17 21:44 Glucose (Glucose Chew Tab) 4-8 Tablets 4 Tabl... UD PRN PO 11/28/17 21:45 12/28/17 21:44 Dextrose (Dextrose 50% 50ML Syringe) 25-50ML OF 50% DW IV FOR... UD PRN IV 11/28/17 21:45 12/28/17 21:44 Glucagon (Glucagon Inj) 1 mg UD PRN SQ 11/28/17 21:45 12/28/17 21:44 Calcium Acetate (Phoslo Cap) 2,001 mg TIDM PO 11/29/17 07:15 12/29/17 07:59 11/29/17 07:54 2,001 MG Calcium Acetate (Phoslo Cap) 667 mg TIDM PRN PO 11/28/17 22:00 12/28/17 21:59 Calcium Carbonate (Tums Chew Tab) 1,000 mg DAILY PRN PO 11/28/17 22:00 12/28/17 21:59 Cholecalciferol (Vitamin D Tab) 1,000 inter.unit DAILY PO 11/29/17 09:00 12/29/17 08:59 11/29/17 07:54 1,000 INTER.UNIT Lisinopril (Zestril Tab) 40 mg HS PO 11/29/17 21:00 12/29/17 20:59 Metoprolol Tartrate (Lopressor Tab) 50 mg BID PO 11/29/17 09:00 12/29/17 08:59 11/29/17 07:54 50 MG Multivitamins/ Minerals (Multivitamin W/ Minerals Tab) 1 tab DAILY PO 11/29/17 09:00 12/29/17 08:59 11/29/17 07:54 1 TAB Oxycodone/ Acetaminophen (Percocet 5-325mg Tab) 1 tab Q4H PRN PO 11/28/17 22:00 12/12/17 21:59 Psyllium Hydrophilic Mucilloid (Metamucil Powder) 1 pkt DAILY PRN PO 11/28/17 22:00 12/28/17 21:59 Insulin Glargine (Lantus Solostar Pen) 7 units QAM SC 11/29/17 09:30 12/29/17 09:29 11/29/17 09:54 7 UNITS Vital Signs: Date Time Temp Pulse Resp B/P (MAP) Pulse Ox O2 Delivery O2 Flow Rate FiO2 11/29/17 10:29 63 18 95 Room Air 11/29/17 08:00 96 Room Air 11/29/17 08:00 66 18 156/66 (96) 96 Room Air 11/29/17 06:00 70 21 93 Room Air Oxymask 11/29/17 05:00 63 17 124/54 (77) 94 Room Air Oxymask 11/29/17 04:00 96 Room Air 11/29/17 04:00 60 19 116/56 (76) 96 Room Air Oxymask 11/29/17 03:15 63 97/54 11/29/17 03:15 36.5 61 130/67 (88) 11/29/17 03:00 63 104/57 11/29/17 02:45 61 105/59 11/29/17 02:30 61 106/55 11/29/17 02:15 61 112/57 11/29/17 02:15 61 18 109/54 (72) 95 11/29/17 02:06 61 21 119/57 (77) 94 11/29/17 02:00 62 119/57 11/29/17 02:00 36.5 62 21 95 11/29/17 01:45 61 16 129/63 (85) 97 11/29/17 01:45 61 129/61 11/29/17 01:43 61 23 129/61 (83) 100 Room Air Oxymask 11/29/17 01:30 61 17 113/53 (73) 99 Oxymask 2.0 11/29/17 01:30 62 113/53 11/29/17 01:15 60 133/62 11/29/17 01:15 62 22 133/62 (85) 100 Oxymask 2.0 11/29/17 01:01 61 19 153/70 (97) 100 Oxymask 2.0 11/29/17 01:00 60 153/70 11/29/17 01:00 61 20 100 Oxymask 2.0 11/29/17 00:45 60 128/61 11/29/17 00:45 60 17 128/61 (83) 100 Oxymask 4.0 11/29/17 00:30 62 22 163/68 (99) 100 Oxymask 4.0 11/29/17 00:30 61 163/68 11/29/17 00:16 61 17 144/66 (92) 100 Oxymask 4.0 11/29/17 00:15 61 144/66 11/29/17 00:15 62 20 99 Oxymask 4.0 11/29/17 00:00 36.7 64 21 167/74 (105) 99 Oxymask 4.0 11/29/17 00:00 62 167/74 11/29/17 00:00 100 Oxymask 6.0 11/28/17 23:46 64 24 158/69 (98) 100 Oxymask 6.0 11/28/17 23:45 63 20 100 Oxymask 6.0 11/28/17 23:45 63 158/69 11/28/17 23:30 65 134/68 11/28/17 23:30 64 20 134/68 (90) 100 Oxymask 6.0 11/28/17 23:15 36.8 66 157/75 (102) 11/28/17 23:15 66 20 154/72 (99) 100 Oxymask 6.0 11/28/17 23:15 65 154/72 11/28/17 23:08 68 23 157/75 (102) 100 Oxymask 6.0 11/28/17 23:00 69 26 164/73 (103) 100 Oxymask 6.0 11/28/17 22:40 36.8 71 24 168/90 100 Mask 6.0 11/28/17 22:27 69 18 149/78 98 11/28/17 22:00 70 18 149/75 99 BiPAP 11/28/17 21:45 75 18 160/75 98 BiPAP 11/28/17 21:30 81 20 159/85 84 Nasal Cannula 5.0 11/28/17 21:15 78 18 152/88 98 BiPAP 11/28/17 21:00 83 20 170/89 97 BiPAP 11/28/17 20:54 83 20 170/89 97 BiPAP 11/28/17 20:37 93 96 40 11/28/17 20:30 85 20 159/86 98 BiPAP 11/28/17 19:45 111 11/28/17 19:36 111 36 94 Nasal Cannula 6.0 11/28/17 19:28 37.5 106 30 215/99 79 Room Air Laboratory Results: Last 24 Hours Test 11/28/17 19:46 11/28/17 19:50 11/28/17 20:01 11/28/17 20:03 Creatine Kinase MB Ratio White Blood Count 22.80 K/uL Red Blood Count 4.00 M/uL Hemoglobin 12.4 g/dL Hematocrit 38.2 % Mean Corpuscular Volume 95.5 fL Mean Corpuscular Hemoglobin 31.0 pg Mean Corpuscular Hemoglobin Concent 32.5 g/dl Platelet Count 361 K/uL Mean Platelet Volume 8.6 fL Neutrophils (%) (Auto) 94.9 % Lymphocytes (%) (Auto) 3.3 % Monocytes (%) (Auto) 1.3 % Eosinophils (%) (Auto) 0.0 % Basophils (%) (Auto) 0.1 % Neutrophils # (Auto) 21.64 K/uL Lymphocytes # (Auto) 0.76 K/uL Monocytes # (Auto) 0.29 K/uL Eosinophils # (Auto) 0.00 K/uL Basophils # (Auto) 0.02 K/uL RDW Standard Deviation 55.5 fL RDW Coefficient of Variation 16.3 % Immature Granulocyte % (Auto) 0.4 % Immature Granulocyte # (Auto) 0.09 K/uL Red Blood Cell Morphology Unremarkable Sodium Level 131 mmol/L Potassium Level mmol/L Chloride Level 94 mmol/L Carbon Dioxide Level 25 mmol/L Anion Gap 12.0 mmol/L Blood Urea Nitrogen 44 mg/dl Creatinine 6.43 mg/dl Est Creatinine Clear Calc Drug Dose 6.6 ml/min Estimated GFR () 7.1 Estimated GFR (Non- 6.1 BUN/Creatinine Ratio 6.8 Random Glucose 152 mg/dl Calcium Level 8.8 mg/dl Total Creatine Kinase U/L Creatine Kinase MB 3.0 ng/ml Bedside Troponin I < 0.030 ng/ml Bedside Lactic Acid Venous 3.00 mmol/L Test 11/28/17 20:06 11/28/17 20:34 11/29/17 00:30 11/29/17 06:14 Bedside Glucose 173 mg/dl 103 mg/dl Potassium Level 3.6 mmol/L Total Creatine Kinase 38 U/L Prothrombin Time 11.2 SECONDS Prothromb Time International Ratio 1.1 Estimated Average Glucose 160 mg/dl Hemoglobin A1c 7.2 % Lactic Acid Level 1.4 mmol/L Troponin I 1.010 ng/ml Procalcitonin 41.97 ng/ml Test 11/29/17 08:39 White Blood Count 14.75 K/uL Red Blood Count 3.92 M/uL Hemoglobin 11.9 g/dL Hematocrit 37.4 % Mean Corpuscular Volume 95.4 fL Mean Corpuscular Hemoglobin 30.4 pg Mean Corpuscular Hemoglobin Concent 31.8 g/dl RDW Standard Deviation 56.8 fL RDW Coefficient of Variation 16.7 % Platelet Count 250 K/uL Mean Platelet Volume 8.6 fL Prothrombin Time 11.4 SECONDS Prothromb Time International Ratio 1.1 Activated Partial Thromboplast Time 33.0 SECONDS Partial Thromboplastin Ratio 1.3 Sodium Level 136 mmol/L Potassium Level 4.4 mmol/L Chloride Level 99 mmol/L Carbon Dioxide Level 28 mmol/L Anion Gap 9.0 mmol/L Blood Urea Nitrogen 19 mg/dl Creatinine 3.59 mg/dl Est Creatinine Clear Calc Drug Dose 11.7 ml/min Estimated GFR () 14.3 Estimated GFR (Non- 12.3 BUN/Creatinine Ratio 5.3 Random Glucose 149 mg/dl Calcium Level 8.4 mg/dl Phosphorus Level 4.0 mg/dl Magnesium Level 2.2 mg/dl Total Bilirubin 0.4 mg/dl Direct Bilirubin 0.1 mg/dl Aspartate Amino Transf (AST/SGOT) 29 U/L Alanine Aminotransferase (ALT/SGPT) 28 U/L Alkaline Phosphatase 321 U/L Total Protein 7.2 gm/dl Albumin 2.4 gm/dl
--- NOTE | 2017-11-29 11:12 | Progress Note ---
Internal Med Progress Note Date of Service: Nov 29, 2017. Provider Documentation: SUBJECTIVE: No acute distress. Patient breathing on room air. Patient reports being able to ambulate without dyspnea. denies pain OBJECTIVE: Exam: General- no acute distress Eyes- EOMI Neck- no JVD, midline trachea Lungs- CTABL, no wheezing Heart- regular rate Abdomen- soft, nontender, + bowel sounds Extremities- no edema Neuro- awake and alert ASSESSMENT & PLAN: 67 year old female with end-stage renal disease on hemodialysis and hypertension presented to the emergency room with acute shortness of breath. On on arrival she was found to be hypoxic with oxygen saturation low 80s on room air, in hypertensive emergency with systolic blood pressure more than 215 and chest x-ray showing pulmonary vascular congestion. EKG and cardiac enzymes are unremarkable. She was started on IV Lasix, given nitro glycerin with improvement in blood pressure. Initially started with nasal cannula oxygen and transitioned to CPAP with improvement in respiratory status and oxygen saturation. Nephrology consult was requested to evaluate for emergency dialysis in the Intensive Care Unit. S/p hemodialysis and removed 4 liters Admission chest X ray: 1. Findings most consistent with pulmonary edema setting of cardiomegaly. 2. Bilateral small pleural effusions Discharge day chest X ray: 1. Cardiomegaly. Pulmonary vascular congestion has a most completely resolved. 2. Small layering pleural effusions with bibasilar atelectasis Discharge diagnosis ESRD on Dialysis Pulmonary edema - resolved with dialysis Hypertensive Emergency - resolved with dialysis Discharge Instructions: Please go to your regularly scheduled dialysis Please follow up with your primary care doctor Sixto Bella MD [facility] on 12/03/17 at 2:25 PM [facility] clinics can be re-scheduled by calling [phone] Please return to the emergency room if sudden worsening shortness of breath, chest pain, fever, or loss of consciousness Vital Signs: Date Time Temp Pulse Resp B/P (MAP) Pulse Ox O2 Delivery O2 Flow Rate FiO2 11/29/17 10:29 63 18 95 Room Air 11/29/17 08:00 96 Room Air 11/29/17 08:00 66 18 156/66 (96) 96 Room Air 11/29/17 06:00 70 21 93 Room Air Oxymask 11/29/17 05:00 63 17 124/54 (77) 94 Room Air Oxymask 11/29/17 04:00 96 Room Air 11/29/17 04:00 60 19 116/56 (76) 96 Room Air Oxymask 11/29/17 03:15 63 97/54 11/29/17 03:15 36.5 61 130/67 (88) 11/29/17 03:00 63 104/57 11/29/17 02:45 61 105/59 11/29/17 02:30 61 106/55 11/29/17 02:15 61 112/57 11/29/17 02:15 61 18 109/54 (72) 95 11/29/17 02:06 61 21 119/57 (77) 94 11/29/17 02:00 62 119/57 11/29/17 02:00 36.5 62 21 95 11/29/17 01:45 61 16 129/63 (85) 97 11/29/17 01:45 61 129/61 11/29/17 01:43 61 23 129/61 (83) 100 Room Air Oxymask 11/29/17 01:30 61 17 113/53 (73) 99 Oxymask 2.0 11/29/17 01:30 62 113/53 11/29/17 01:15 60 133/62 11/29/17 01:15 62 22 133/62 (85) 100 Oxymask 2.0 11/29/17 01:01 61 19 153/70 (97) 100 Oxymask 2.0 11/29/17 01:00 60 153/70 11/29/17 01:00 61 20 100 Oxymask 2.0 11/29/17 00:45 60 128/61 11/29/17 00:45 60 17 128/61 (83) 100 Oxymask 4.0 11/29/17 00:30 62 22 163/68 (99) 100 Oxymask 4.0 11/29/17 00:30 61 163/68 11/29/17 00:16 61 17 144/66 (92) 100 Oxymask 4.0 11/29/17 00:15 61 144/66 11/29/17 00:15 62 20 99 Oxymask 4.0 11/29/17 00:00 36.7 64 21 167/74 (105) 99 Oxymask 4.0 11/29/17 00:00 62 167/74 11/29/17 00:00 100 Oxymask 6.0 11/28/17 23:46 64 24 158/69 (98) 100 Oxymask 6.0 11/28/17 23:45 63 20 100 Oxymask 6.0 11/28/17 23:45 63 158/69 11/28/17 23:30 65 134/68 11/28/17 23:30 64 20 134/68 (90) 100 Oxymask 6.0 11/28/17 23:15 36.8 66 157/75 (102) 11/28/17 23:15 66 20 154/72 (99) 100 Oxymask 6.0 11/28/17 23:15 65 154/72 11/28/17 23:08 68 23 157/75 (102) 100 Oxymask 6.0 11/28/17 23:00 69 26 164/73 (103) 100 Oxymask 6.0 11/28/17 22:40 36.8 71 24 168/90 100 Mask 6.0 11/28/17 22:27 69 18 149/78 98 11/28/17 22:00 70 18 149/75 99 BiPAP 11/28/17 21:45 75 18 160/75 98 BiPAP 11/28/17 21:30 81 20 159/85 84 Nasal Cannula 5.0 11/28/17 21:15 78 18 152/88 98 BiPAP 11/28/17 21:00 83 20 170/89 97 BiPAP 11/28/17 20:54 83 20 170/89 97 BiPAP 11/28/17 20:37 93 96 40 11/28/17 20:30 85 20 159/86 98 BiPAP 11/28/17 19:45 111 11/28/17 19:36 111 36 94 Nasal Cannula 6.0 11/28/17 19:28 37.5 106 30 215/99 79 Room Air Lab Results: Results Past 24 Hours Test 11/28/17 19:46 11/28/17 19:50 11/28/17 20:01 11/28/17 20:03 Range/Units Creatine Kinase MB Ratio 0-3.0 White Blood Count 22.80 4.8-10.8 K/uL Red Blood Count 4.00 4.2-5.4 M/uL Hemoglobin 12.4 12.0-16.0 g/dL Hematocrit 38.2 37-47 % Mean Corpuscular Volume 95.5 80-100 fL Mean Corpuscular Hemoglobin 31.0 25-34 pg Mean Corpuscular Hemoglobin Concent 32.5 32-36 g/dl Platelet Count 361 130-400 K/uL Mean Platelet Volume 8.6 7.4-10.4 fL Neutrophils (%) (Auto) 94.9 % Lymphocytes (%) (Auto) 3.3 % Monocytes (%) (Auto) 1.3 % Eosinophils (%) (Auto) 0.0 % Basophils (%) (Auto) 0.1 % Neutrophils # (Auto) 21.64 1.4-6.5 K/uL Lymphocytes # (Auto) 0.76 1.2-3.4 K/uL Monocytes # (Auto) 0.29 0.11-0.59 K/uL Eosinophils # (Auto) 0.00 0-0.5 K/uL Basophils # (Auto) 0.02 0-0.2 K/uL RDW Standard Deviation 55.5 36.4-46.3 fL RDW Coefficient of Variation 16.3 11.5-14.5 % Immature Granulocyte % (Auto) 0.4 % Immature Granulocyte # (Auto) 0.09 0.00-0.02 K/uL Red Blood Cell Morphology Unremarkable Sodium Level 131 136-145 mmol/L Potassium Level 3.5-5.1 mmol/L Chloride Level 94 98-107 mmol/L Carbon Dioxide Level 25 21-32 mmol/L Anion Gap 12.0 3-11 mmol/L Blood Urea Nitrogen 44 7-18 mg/dl Creatinine 6.43 0.60-1.20 mg/dl Est Creatinine Clear Calc Drug Dose 6.6 ml/min Estimated GFR () 7.1 Estimated GFR (Non- 6.1 BUN/Creatinine Ratio 6.8 10-20 Random Glucose 152 70-99 mg/dl Calcium Level 8.8 8.5-10.1 mg/dl Total Creatine Kinase 26-192 U/L Creatine Kinase MB 3.0 0.5-3.6 ng/ml Bedside Troponin I < 0.030 0-0.045 ng/ml Bedside Lactic Acid Venous 3.00 0.90-1.70 mmol/L Test 11/28/17 20:06 11/28/17 20:34 11/29/17 00:30 11/29/17 06:14 Range/Units Bedside Glucose 173 103 70-90 mg/dl Potassium Level 3.6 3.5-5.1 mmol/L Total Creatine Kinase 38 26-192 U/L Prothrombin Time 11.2 9.0-12.0 SECONDS Prothromb Time International Ratio 1.1 0.9-1.1 Estimated Average Glucose 160 mg/dl Hemoglobin A1c 7.2 4.5-5.6 % Lactic Acid Level 1.4 0.4-2.0 mmol/L Troponin I 1.010 0-0.045 ng/ml Procalcitonin 41.97 0-0.5 ng/ml Test 11/29/17 08:39 Range/Units White Blood Count 14.75 4.8-10.8 K/uL Red Blood Count 3.92 4.2-5.4 M/uL Hemoglobin 11.9 12.0-16.0 g/dL Hematocrit 37.4 37-47 % Mean Corpuscular Volume 95.4 80-100 fL Mean Corpuscular Hemoglobin 30.4 25-34 pg Mean Corpuscular Hemoglobin Concent 31.8 32-36 g/dl RDW Standard Deviation 56.8 36.4-46.3 fL RDW Coefficient of Variation 16.7 11.5-14.5 % Platelet Count 250 130-400 K/uL Mean Platelet Volume 8.6 7.4-10.4 fL Prothrombin Time 11.4 9.0-12.0 SECONDS Prothromb Time International Ratio 1.1 0.9-1.1 Activated Partial Thromboplast Time 33.0 21.0-31.0 SECONDS Partial Thromboplastin Ratio 1.3 Sodium Level 136 136-145 mmol/L Potassium Level 4.4 3.5-5.1 mmol/L Chloride Level 99 98-107 mmol/L Carbon Dioxide Level 28 21-32 mmol/L Anion Gap 9.0 3-11 mmol/L Blood Urea Nitrogen 19 7-18 mg/dl Creatinine 3.59 0.60-1.20 mg/dl Est Creatinine Clear Calc Drug Dose 11.7 ml/min Estimated GFR () 14.3 Estimated GFR (Non- 12.3 BUN/Creatinine Ratio 5.3 10-20 Random Glucose 149 70-99 mg/dl Calcium Level 8.4 8.5-10.1 mg/dl Phosphorus Level 4.0 2.5-4.9 mg/dl Magnesium Level 2.2 1.8-2.4 mg/dl Total Bilirubin 0.4 0.2-1 mg/dl Direct Bilirubin 0.1 0-0.2 mg/dl Aspartate Amino Transf (AST/SGOT) 29 15-37 U/L Alanine Aminotransferase (ALT/SGPT) 28 12-78 U/L Alkaline Phosphatase 321 45-117 U/L Total Protein 7.2 6.4-8.2 gm/dl Albumin 2.4 3.4-5.0 gm/dl Microbiology Results 11/28/17 Blood Culture, Received Pending 11/28/17 Blood Culture, Received Pending 11/28/17 MRSA DNA Surveillance Screen - Final, Complete Specimen Negative for MRSA by DNA Probe
--- NOTE | 2017-11-29 11:25 | Discharge Instructions ---
Discharge Instructions Date of Service Nov 29, 2017. Admission Reason for Admission: Hypoxia Discharge Discharge Diagnosis / Problem: ESRD on dialysis, pulmonary edema, hypertensive emergency Discharge Goals Goal(s): Improve disease control Activity Recommendations Activity Limitations: per Instructions/Follow-up section Shower/Bathe: no limitations . Instructions / Follow-Up Instructions / Follow-Up 67 year old female with end-stage renal disease on hemodialysis and hypertension presented to the emergency room with acute shortness of breath. On on arrival she was found to be hypoxic with oxygen saturation low 80s on room air, in hypertensive emergency with systolic blood pressure more than 215 and chest x-ray showing pulmonary vascular congestion. EKG and cardiac enzymes are unremarkable. She was started on IV Lasix, given nitro glycerin with improvement in blood pressure. Initially started with nasal cannula oxygen and transitioned to CPAP with improvement in respiratory status and oxygen saturation. Nephrology consult was requested to evaluate for emergency dialysis in the Intensive Care Unit. Status post hemodialysis and removed 4 liters Admission chest X ray: 1. Findings most consistent with pulmonary edema setting of cardiomegaly. 2. Bilateral small pleural effusions Discharge day chest X ray: 1. Cardiomegaly. Pulmonary vascular congestion has a most completely resolved. 2. Small layering pleural effusions with bibasilar atelectasis Discharge diagnosis ESRD on Dialysis Pulmonary edema - resolved with dialysis Hypertensive Emergency - resolved with dialysis Discharge Instructions: Please go to your regularly scheduled dialysis Please follow up with your primary care doctor Sixto Bella MD [facility] on 12/03/17 at 2:[address] [facility] clinics can be re-scheduled by calling [phone] Please return to the emergency room if sudden worsening shortness of breath, chest pain, fever, or loss of consciousness Current Hospital Diet Patient's current hospital diet: Diabetes Type 1 Diet, Renal Diet Discharge Diet Recommended Diet: Diabetes Type 1 Diet, Renal Diet Pending Studies Studies pending at discharge: no Laboratory Results 11/29/17 08:39 11/29/17 08:39 Test 11/28/17 19:46 11/28/17 19:50 11/28/17 20:01 11/28/17 20:03 Creatine Kinase MB Ratio (0-3.0) Immature Granulocyte % (Auto) 0.4 % White Blood Count 22.80 K/uL (4.8-10.8) Red Blood Count 4.00 M/uL (4.2-5.4) Hemoglobin 12.4 g/dL (12.0-16.0) Hematocrit 38.2 % (37-47) Mean Corpuscular Volume 95.5 fL (80-100) Mean Corpuscular Hemoglobin 31.0 pg (25-34) Mean Corpuscular Hemoglobin Concent 32.5 g/dl (32-36) Platelet Count 361 K/uL (130-400) Mean Platelet Volume 8.6 fL (7.4-10.4) Neutrophils (%) (Auto) 94.9 % Lymphocytes (%) (Auto) 3.3 % Monocytes (%) (Auto) 1.3 % Eosinophils (%) (Auto) 0.0 % Basophils (%) (Auto) 0.1 % Neutrophils # (Auto) 21.64 K/uL (1.4-6.5) Lymphocytes # (Auto) 0.76 K/uL (1.2-3.4) Monocytes # (Auto) 0.29 K/uL (0.11-0.59) Eosinophils # (Auto) 0.00 K/uL (0-0.5) Basophils # (Auto) 0.02 K/uL (0-0.2) Immature Granulocyte # (Auto) 0.09 K/uL (0.00-0.02) Red Blood Cell Morphology Unremarkable Creatine Kinase MB 3.0 ng/ml (0.5-3.6) Bedside Troponin I < 0.030 ng/ml (0-0.045) Bedside Lactic Acid Venous 3.00 mmol/L (0.90-1.70) Test 11/28/17 20:34 11/29/17 00:30 11/29/17 06:14 11/29/17 08:39 Total Creatine Kinase 38 U/L (26-192) Bedside Glucose 103 mg/dl (70-90) Estimated Average Glucose 160 mg/dl Hemoglobin A1c 7.2 % (4.5-5.6) Lactic Acid Level 1.4 mmol/L (0.4-2.0) Troponin I 1.010 ng/ml (0-0.045) Procalcitonin 41.97 ng/ml (0-0.5) Red Blood Count 3.92 M/uL (4.2-5.4) Mean Corpuscular Volume 95.4 fL (80-100) Mean Corpuscular Hemoglobin 30.4 pg (25-34) Mean Corpuscular Hemoglobin Concent 31.8 g/dl (32-36) RDW Standard Deviation 56.8 fL (36.4-46.3) RDW Coefficient of Variation 16.7 % (11.5-14.5) Mean Platelet Volume 8.6 fL (7.4-10.4) Prothrombin Time 11.4 SECONDS (9.0-12.0) Prothromb Time International Ratio 1.1 (0.9-1.1) Activated Partial Thromboplast Time 33.0 SECONDS (21.0-31.0) Partial Thromboplastin Ratio 1.3 Anion Gap 9.0 mmol/L (3-11) Est Creatinine Clear Calc Drug Dose 11.7 ml/min Estimated GFR () 14.3 Estimated GFR (Non- 12.3 BUN/Creatinine Ratio 5.3 (10-20) Calcium Level 8.4 mg/dl (8.5-10.1) Phosphorus Level 4.0 mg/dl (2.5-4.9) Magnesium Level 2.2 mg/dl (1.8-2.4) Total Bilirubin 0.4 mg/dl (0.2-1) Direct Bilirubin 0.1 mg/dl (0-0.2) Aspartate Amino Transf (AST/SGOT) 29 U/L (15-37) Alanine Aminotransferase (ALT/SGPT) 28 U/L (12-78) Alkaline Phosphatase 321 U/L (45-117) Total Protein 7.2 gm/dl (6.4-8.2) Albumin 2.4 gm/dl (3.4-5.0) Date/Time Source Procedure Growth Status 11/28/17 19:50 Blood Blood Culture Pending Received 11/28/17 23:00 Nasal MRSA DNA Surveillance Screen - Final Specimen Negative for MRSA by DNA Probe Complete Hemoglobin A1c Test 11/29/17 06:14 Range/Units Estimated Average Glucose 160 mg/dl Hemoglobin A1c 7.2 H 4.5-5.6 % Medical Emergencies . Who to Call and When: Medical Emergencies: If at any time you feel your situation is an emergency, please call 911 immediately. . Non-Emergent Contact Non-Emergency issues call your: Primary Care Provider, Consumer Loan Underwriter Call Non-Emergent contact if: you have any medication questions . . "Provider Documentation" section prepared by Jovi Zuniga. . VTE Core Measure Inpt VTE Proph given/why not?: Unfractionated heparin SQ
--- NOTE | 2017-11-29 11:26 | Discharge Summary ---
Discharge Summary Date of Service Nov 29, 2017. Discharge Summary Admission Date: Nov 28, 2017 at 21:21 Discharge Date: Nov 29, 2017 Discharge Disposition: Home Principal Diagnosis: ESRD on dialysis, pulmonary edema, hypertensive emergency Medication Reconciliation Continued Medications: Calcium Acetate (Phoslo 667 Mg) 667 Mg Cap 3 CAPSULES PO WM Calcium Acetate (Phoslo 667 Mg) 667 Mg Cap 1 CAP PO with snacks Calcium Carbonate (Tums) 500 Mg Chew 2 TABS PO WM PRN for Dyspepsia Cholecalciferol (Vitamin D3) 1,000 Inter.unit Tab 1000 UNITS PO DAILY Furosemide (Furosemide) 80 Mg Tab 80 MG PO QAM Insulin Aspart (Novolog Flexpen) 100 Units/Ml Inj 0-40 UNITS SQ MEALS AFTER 1700 PRN for 1 UNIT FOR EVERY SEVEN CARBS Insulin Glargine (Lantus) 100 Unit/Ml Inj 7 UNITS SC QAM Lisinopril (Zestril) 40 Mg Tab 40 MG PO HS Metoprolol Tartrate (Lopressor) (Lopressor) 50 Mg Tab 50 MG PO BID Multiple Vitamins W/ Minerals (Prorenal Vital) 1 Tab Tab 1 TAB PO DAILY Oxycodone/Acetaminophen 5MG/325MG (Percocet 5MG/325MG) Tab 1-2 TABLETS PO Q4H PRN for Pain PAIN Psyllium (Metamucil Fiber) 51.7 % Jef 1 TSP PO DAILY PRN for Constipation Admission Information HPI (per Admitting provider): 67 yo hemodialysis patient who presents with shortness of breath, found to be hypoxic 2/2 volume overload. She was short of breath with a nonproductive cough just beginning this evening. BP was found to be >200 in the ER. She was last dialyzed on although she is a MWF dialysis schedule and this was because of the weather. She is under the care of Dr. Posey. On presentation she was oxygenating 83% on room air and was diaphoretic in respiratory distress. She was given nebulizers and placed on oxygen. She was given nitro and Lasix IV 40, however, persisted in respiratory distress. She was subsequently placed on BIPAP and became more comfortable. She will be transferred to the ICU. She denies any recent cough, fevers, chills, sick contacts, travel. She denies eating an excessive amount of salty foods and has been compliant with her Lasix. She was discharged from the hospital with conservative, non-operative management of a ruptured appendix and has some underlying RLQ discomfort, but nothing that is worse or limiting. She has been tolerating PO without difficulty and is under the care of Dr. Ryan as an outpatient. She denies chest pain and is making urine without issues. She denies any issues with bowel movements. Her ankles are swollen and edematous which she says is par for the course and chronic for her. She watches her weight and reports a 2 pound weight gain in the last week. She denies any significant weight gain or swelling that is new. Physical Exam (per Admitting): General Appearance: WD/WN, + mild distress (comfortable on BIPAP, but distressed if taken off for only 2 minutes with subsequent hypoxia. ) Head: normocephalic, atraumatic Eyes: normal inspection, sclerae normal ENT: hearing grossly normal Neck: supple, trachea midline Respiratory/Chest: + decreased breath sounds, + accessory muscle use, + crackles (crackles at bases), + rhonchi (rhonchi and decreased breath sounds at bases. 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 On on arrival she was found to be hypoxic with oxygen saturation low 80s on room air, in hypertensive emergency with systolic blood pressure more than 215 and chest x-ray showing pulmonary vascular congestion. EKG and cardiac enzymes are unremarkable. She was started on IV Lasix, given nitro glycerin with improvement in blood pressure. Initially started with nasal cannula oxygen and transitioned to CPAP with improvement in respiratory status and oxygen saturation. Nephrology consult was requested to evaluate for emergency dialysis in the Intensive Care Unit. S/p hemodialysis and removed 4 liters Admission chest X ray: 1. Findings most consistent with pulmonary edema setting of cardiomegaly. 2. Bilateral small pleural effusions Discharge day chest X ray: 1. Cardiomegaly. Pulmonary vascular congestion has a most completely resolved. 2. Small layering pleural effusions with bibasilar atelectasis Discharge diagnosis ESRD on Dialysis Pulmonary edema - resolved with dialysis Hypertensive Emergency - resolved with dialysis Discharge Instructions: Please go to your regularly scheduled dialysis Please follow up with your primary care doctor Sixto Bella MD [facility] on 12/03/17 at 2:25 PM [facility] clinics can be re-scheduled by calling [phone] Please return to the emergency room if sudden worsening shortness of breath, chest pain, fever, or loss of consciousness Total time spent on discharge = 60 minutes This includes examination of the patient, discharge planning, medication reconciliation, and communication with other providers. Discharge Instructions see above
--- NOTE | 2017-11-29 12:17 | Clinical Documentation Query ---
ANA Hanna : CLINICAL DOCUMENTATION QUERY Patient is a 67 year old HD patient presenting with SOB, diaphoresis, and hypoxia in the setting of volume overload. Echocardiogram from 10/18/17 demonstrated a normal LVEF of 55-60% while performed in the setting of volume overload and hypoxia, as in this admission. Repeat echocardiogram pending. She has been treated with nitrates, O2, Lasix, Bi-PAP, telemetry, nephrology and hydrometeorologist consultations. In your clinical opinion is this patient being managed for: ( ) Acute diastolic CHF secondary to volume overload in the setting of ESRD and hypertensive emergency ( ) Not Agree ( ) Other explanation of clinical findings (Please Explain) ( x ) Unable to determine (Please Define) ( ) Need to Discuss Cannot determine whether cardiac history played a factor into the pulmonary edema The medical record reflects the following clinical findings, treatment, and risk factors. Clinical Indicators: As above Treatment: Nitro, Lasix, Bi-PAP, emergent HD, telemetry Risk Factors: Shortened HD time, ?dietary/medication indiscretions, hypertensive emergency Please clarify and document your clinical opinion in the progress notes and discharge summary. Terms such as "probable", "suspected", "likely", "questionable", "possible", or "still to be ruled out" are acceptable. IF IN AGREEMENT, YOU MUST DOCUMENT ABOVE DIAGNOSTIC STATEMENT IN DAILY PROGRESS NOTES AND DISCHARGE SUMMARY. This document is not part of the patient's record. Thank You, Bacilio Espitia, LEONIDAS [phone]
--- NOTE | 2017-11-29 20:27 | ECHOCARDIOGRAM REPORT ---
*NOTICE TO RECEIVING [employer] This information is strictly Confidential and protected under [place] law. [place] law prohibits you from making any further disclosure of this information unless further disclosure is expressly permitted by the written consent of the person to whom it pertains or is authorized by law. A general authorization for the release of medical or other information is not sufficient for this purpose. Hospital accepts no responsibility if the information is made available to any other person, INCLUDING THE PATIENT. Interpretation Summary * Name: ISIDRO BLANCO Study Date: 11/29/2017 07:14 AM BP: 130/67 mmHg * [facility]\1 HR: 63 * : 1950 (M/d/yyyy) Gender: Female Height: 64 in * Age: 67 yrs Ethnicity: [place] Weight: 108 lb * Ordering Physician: Efra Fox * Referring Physician: Self, Referred * Performed By: Damaris Gonzalez RCS * * Reason For Study: CHF * BSA: 1.5 m2 * -- Conclusions -- * The left ventricular wall motion is normal. * Ejection Fraction = 55-60%. * Left ventricular systolic function is normal. * Trace aortic regurgitation. * There is mild mitral regurgitation. * Doppler findings do not suggest pulmonary hypertension. * Grade I diastolic dysfunction, (abnormal relaxation pattern). Procedure Details * A complete two-dimensional transthoracic echocardiogram was performed (2D, M-mode, Doppler and color flow Doppler). Left Ventricle * The left ventricle is normal in size. * There is normal left ventricular wall thickness. * Ejection Fraction = 55-60%. * Left ventricular systolic function is normal. * The left ventricular wall motion is normal. Right Ventricle * The right ventricle is normal size. * The right ventricular systolic function is normal as assessed by tricuspid annular plane systolic excursion (TAPSE) (normal >1.5 cm). Atria * The left atrial size is normal. * Right atrial size is normal. * There is no evidence of atrial septal defect, but resolution does not allow assessment for a patent foramen ovale. Mitral Valve * There is mild mitral annular calcification. * There is no mitral valve stenosis. * There is mild mitral regurgitation. Tricuspid Valve * The tricuspid valve is normal. * There is no tricuspid stenosis. * Significant tricuspid regurgitation is absent. * Doppler findings do not suggest pulmonary hypertension. Aortic Valve * The aortic valve is trileaflet. * Aortic stenosis is absent. * Trace aortic regurgitation. Pulmonic Valve * The pulmonary valve is not well seen, but the Doppler examination is normal without significant regurgitation or stenosis. Great Vessels * The aortic root and proximal ascending aorta are normal sized. Pericardium/Pleural * There is no pericardial effusion. Great Vessels * Normal inferior vena cava diameter and respiratory variation suggests normal central venous pressure. Left Ventricular Diastolic Function * Grade I diastolic dysfunction, (abnormal relaxation pattern). MMode 2D Measurements and Calculations IVSd 10 cm IVSs 1.3 cm LVIDd 5.4 cm LVIDs 3.5 cm LVPWd 0.97 cm LVPWs 1.4 cm IVS/LVPW 1.0 FS 35.5 % EDV(Teich) 138.8 ml ESV(Teich) 49.3 ml EF(Teich) 64.5 % EDV(cubed) 153.8 ml ESV(cubed) 41.3 ml EF(cubed) 73.2 % % IVS thick 31.5 % % LVPW thick 47.3 % LV mass(C)d 199.1 grams LV mass(C)dI 132.3 grams/m\S\2 LV mass(C)s 163.6 grams LV mass(C)sI 108.7 grams/m\S\2 SV(Teich) 89.5 ml SI(Teich) 59.4 ml/m\S\2 SV(cubed) 112.6 ml SI(cubed) 74.8 ml/m\S\2 Ao root diam 2.9 cm Ao root area 6.4 cm\S\2 ACS 1.4 cm LA dimension 3.6 cm asc Aorta Diam 2.4 cm LA/Ao 1.2 EDV(MOD-sp4) 119.0 ml ESV(MOD-sp4) 57.0 ml EF(MOD-sp4) 52.1 % EDV(MOD-sp2) 114.0 ml ESV(MOD-sp2) 46.0 ml EF(MOD-sp2) 59.6 % SV(MOD-sp4) 62.0 ml SI(MOD-sp4) 41.2 ml/m\S\2 SV(MOD-sp2) 68.0 ml SI(MOD-sp2) 45.2 ml/m\S\2 Doppler Measurements and Calculations MV E max yenni 89.8 cm/sec MV A max yenni 103.4 cm/sec MV E/A 0.87 MV P1/2t max yenni 106.2 cm/sec MV P1/2t 102.7 msec MVA(P1/2t) 2.1 cm\S\2 MV dec slope 302.8 cm/sec\S\2 MV dec time 0.24 sec Ao V2 max 145.6 cm/sec Ao max PG 8.5 mmHg Ao max PG (full) 5.5 mmHg LV V1 max PG 3.0 mmHg LV V1 max 86.4 cm/sec PA V2 max 100.4 cm/sec PA max PG 4.0 mmHg PI max yenni 143.8 cm/sec PI max PG 8.3 mmHg PI dec slope 125.8 cm/sec\S\2 PI P1/2t 334.7 msec TR max yenni 243.8 cm/sec
[2017-11-29] MEDS ORDERED: LISINOPRIL 40 MG TAB PO SCH (21:00)
--- NOTE | 2017-12-02 13:00 | EDITING REQUIRED CODING QUERY ---
CONGESTIVE HEART FAILURE To Promote full compliance with coding requirements relating to patient care, physician participation is requested in all cases of dental instrument maker uncertainty. Please assist us with the following questions. A diagnosis of Congestive Heart Failure is documented in the patient's medical record. To accurately code this diagnosis and to compare patient severity, we ask that you specify the type of heart failure by placing an X within the parenthesis (x). ( ) SYSTOLIC HEART FAILURE ( ) Acute ( ) Chronic ( ) Acute on Chronic ( ) Rheumatic ( ) Unknown ( ) DIASTOLIC HEART FAILURE ( ) Acute ( ) Chronic ( ) Acute on Chronic ( ) Rheumatic ( ) Unknown ( ) COMBINED SYSTOLIC AND DIASTOLIC HEART FAILURE ( ) Acute ( ) Chronic ( ) Acute on Chronic ( ) Rheumatic ( ) Unknown ( x) THERE WAS NO CHF Below is conclusion of Echocardiogram performed recently. There is no heart failure problem * -- Conclusions -- * The left ventricular wall motion is normal. * Ejection Fraction = 55-60%. * Left ventricular systolic function is normal. * Trace aortic regurgitation. * There is mild mitral regurgitation. * Doppler findings do not suggest pulmonary hypertension. * Grade I diastolic dysfunction, (abnormal relaxation pattern). Was the CHF Present On Admission? Please check the appropriate box: ( ) Present on Admission ( ) Not Present On Admission ( ) Clinically undetermined Thank you Aga Mccann
== END 2017-11-29 12:57 | disposition home or self-care (01) | DRG 189 ==
LOC: C.EDB 19:24 → C.MSICU 21:21 → ENRESERV 21:28
PROVIDERS: ADMIT Hospitalist; ATTEND Hospitalist
DX: J81.0 Acute pulmonary edema (principal); N18.6 End stage renal disease; J96.91 Respiratory failure, unspecified with hypoxia; I16.1 Hypertensive emergency; D68.0 Von Willebrand disease; I12.0 Hypertensive chronic kidney disease with stage 5 chronic kidney disease or end stage renal disease; E11.22 Type 2 diabetes mellitus with diabetic chronic kidney disease; Z79.899 Other long term (current) drug therapy; Z79.4 Long term (current) use of insulin; Z99.2 Dependence on renal dialysis; Z87.01 Personal history of pneumonia (recurrent); Z88.0 Allergy status to penicillin; Z88.1 Allergy status to other antibiotic agents; Z88.2 Allergy status to sulfonamides; Z88.6 Allergy status to analgesic agent; Z88.8 Allergy status to other drugs, medicaments and biological substances; Z91.048 Other nonmedicinal substance allergy status

== ENCOUNTER → 2017-12-19 | Outpatient (CLI) | payer OTHER ==
[~2017-12-19] MED LIST changes: -BMX1 PO; -HYDR-4717 PO; +LSX80 PO; -LVQ500 PO
--- NOTE | 2017-12-19 10:49 | DIAGNOSTIC IMAGING REPORT ---
CT OF THE CHEST WITHOUT IV CONTRAST CLINICAL HISTORY: Abnormal chest CTs. Follow-up pneumonia. Follow-up enlarged nodes. COMPARISON STUDY: Chest CT October 09, 2017 and chest radiograph November 29, 2017. CT DOSE: 268.96 mGycm TECHNIQUE: Axial images of the chest were obtained without IV contrast. Images were reviewed in the axial, sagittal, and coronal planes. IV contrast was not administered for this examination. A dose lowering technique was utilized adhering to the principles of ALARA. FINDINGS: Mediastinal and hilar lymph nodes shown on exam of October 09, 2017 are now normal in size. There is moderate cardiomegaly with extensive coronary artery calcification. There are trace bilateral pleural effusions, right larger than left. These have significantly decreased in size since exam of October 17, 2017. Associated lower lobe opacities reflect atelectasis. The bilateral airspace opacities shown on exam of October 17, 2017 have resolved. There is no pneumothorax. There are no suspicious pulmonary nodules. Bony thorax is unremarkable. Visualized portions of the upper abdomen demonstrate multifocal calcifications within the pancreas which are partially imaged on this exam. Marked atrophy of the left kidney is again noted. IMPRESSION: 1. Interval resolution of the bilateral airspace opacities shown on chest CT of October 17, 2017. 2. Trace bilateral pleural effusions, significantly decreased in size since prior exam. 3. Interval resolution of thoracic lymphadenopathy. Electronically signed by: Samir Dougherty M.D. 12/19/2017 10:47 AM Dictated Date/Time: 12/19/2017 10:41 AM
== END | disposition home or self-care (01) ==
LOC: C.CTS 10:08
PROVIDERS: ATTEND Family Medicine
DX: R93.8 Abnormal findings on diagnostic imaging of other specified body structures (principal); J90 Pleural effusion, not elsewhere classified

== ENCOUNTER → 2018-01-01 | Outpatient (CLI) | payer OTHER ==
[~2018-01-01] MED LIST changes: +APR50 PO; +HYDR-4715 PO
[2018-01-01 18:45] LABS: ALBUMIN 2.1 gm/dl (3.4-5.0); BLOOD UREA NITROGEN 18 mg/dl (7-18); CALCIUM 8.9 mg/dl (8.5-10.1); CARBON DIOXIDE 33 mmol/L (21-32); CREATININE 3.07 mg/dl (0.60-1.20); GLUCOSE 335 mg/dl (70-99); POTASSIUM 3.4 mmol/L (3.5-5.1); SODIUM 133 mmol/L (136-145)
[2018-01-01 18:48] LABS: CHOLESTEROL 106 mg/dl (0-200); LDL CHOLESTEROL CALCULATED 45 mg/dl; PHOSPHORUS 3.8 mg/dl (2.5-4.9)
== END | disposition home or self-care (01) ==
LOC: C.LAB 17:12
PROVIDERS: ATTEND Internal Medicine
DX: E78.5 Hyperlipidemia, unspecified (principal); E10.65 Type 1 diabetes mellitus with hyperglycemia; N18.9 Chronic kidney disease, unspecified; R19.5 Other fecal abnormalities; R10.9 Unspecified abdominal pain; E11.22 Type 2 diabetes mellitus with diabetic chronic kidney disease

== ENCOUNTER 2018-01-02 07:09 | Inpatient (IN) | payer OTHER ==
[~2018-01-02] VITALS: Ht 157.5 cm; Wt 50.6 kg
[~2018-01-02 07:09] MED LIST changes: -APR50 PO; -HYDR-4715 PO
[2018-01-02] MEDS ORDERED: ONDANSETRON INJ 2 MG/ML 2 ML VIAL IV STA (07:40)
[2018-01-02] MEDS ORDERED: SODIUM CHLORIDE 0.9% 1000ML 1,000 ML IV STA (07:40)
[2018-01-02] MEDS ORDERED: APR50 PO (07:46)
[2018-01-02] MEDS: MoRPHine SULFATE 4 MG/ML 1 ML CARP\\VIAL IV PRN ×2 (08:00→12:29)
[2018-01-02 08:12] LABS: BASO % 0.1 %; BASO ABS # 0.01 K/uL (0-0.2); HEMATOCRIT 37.1 % (37-47); HEMOGLOBIN 11.4 g/dL (12.0-16.0); LYMPH % 3.9 %; MEAN CELL VOLUME 96.9 fL (80-100); MEAN CORPUSCULAR HEMOGLOBIN 29.8 pg (25-34); MEAN CORPUSCULAR HGB CONC 30.7 g/dl (32-36); MEAN PLATELET VOLUME 9.4 fL (7.4-10.4); MONO % 5.5 %; MONO ABS # 0.85 K/uL (0.11-0.59); NEUT % 89.9 %; NEUT ABS # 13.94 K/uL (1.4-6.5); PLATELET COUNT 405 K/uL (130-400); RED CELL DISTRIBUTION WIDTH CV 15.8 % (11.5-14.5)
[2018-01-02 08:37] LABS: CALCIUM 9.1 mg/dl (8.5-10.1); CREATININE 3.87 mg/dl (0.60-1.20); POTASSIUM 3.8 mmol/L (3.5-5.1); TOTAL PROTEIN 6.6 gm/dl (6.4-8.2)
[2018-01-02] MEDS ORDERED: INSULIN HUMAN REGULAR PER UNIT 10 UNITS in SYRINGE 0 ML IV STA (09:09)
--- NOTE | 2018-01-02 09:19 | DIAGNOSTIC IMAGING REPORT ---
L SHOULDER MIN 2 VIEWS ROUTINE CLINICAL HISTORY: 67 years-old Female presenting with fall L shoulder. TECHNIQUE: Frontal and lateral views of the left shoulder were obtained. COMPARISON: Chest x-ray from 11/28/2017. FINDINGS: Interval development of a comminuted minimally displaced fracture at the surgical neck of the left humerus. Minimal lateral displacement of the distal fracture fragment. The fracture is also impacted most pronounced posteriorly. Osteopenia noted. Modular vascular stents project over the left axilla. Trace left pleural effusion suspected. IMPRESSION: 1. Comminuted minimally displaced and impacted fracture of the neck of the left humerus. 2. Osteopenia. 3. Trace left pleural effusion. Electronically signed by: Sixto Palacios M.D. 01/02/2018 9:17 AM Dictated Date/Time: 01/02/2018 9:15 AM
--- NOTE | 2018-01-02 09:19 | DIAGNOSTIC IMAGING REPORT ---
L RIBS UNILATERAL WITH PA CHEST CLINICAL HISTORY: L rib pain pain COMPARISON STUDY: None FINDINGS: Oblique fracture left humeral neck. Left axillary vascular stent. Lungs are clear. Diaphragms smooth. Left RIBS show no acute bony abnormality IMPRESSION: 1. Fracture left humeral neck. 2. Negative chest. 3. Negative left ribs. The above report was generated using voice recognition software. It may contain grammatical, syntax or spelling errors. Electronically signed by: Scottie Peter M.D. 01/02/2018 9:17 AM Dictated Date/Time: 01/02/2018 9:15 AM
--- NOTE | 2018-01-02 11:50 | DIAGNOSTIC IMAGING REPORT ---
ABD/PELVIS ORAL CONT ONLY CLINICAL HISTORY: 67 years-old Female presenting with abd pain. TECHNIQUE: Multidetector CT of the abdomen and pelvis was performed after the administration of oral contrast only. IV contrast: None. A dose lowering technique was used consistent with the principles of ALARA (as low as reasonably achievable). COMPARISON: 08/25/2017. CT DOSE (mGy.cm): The estimated cumulative dose is 315.14 mGycm. FINDINGS: Software Project Lead topogram: Gaseous distention of small and large bowel. Lung bases: Chronic dependent and peribronchovascular consolidation in the lower lobes with slight lower lobe volume loss suggested. Multichamber enlargement of the heart. Coronary artery calcification. Small left pleural effusion. Liver: Normal morphology. Density borderline for hepatic steatosis. Hepatic arterial calcification noted. Biliary: No gross biliary ductal dilatation allowing for noncontrast technique. Gallbladder contains gallstones. Pancreas: Numerous coarse calcifications in the pancreatic parenchyma consistent with a history of chronic pancreatitis. Trophic pancreatic parenchyma. Intermittent dilatation of the pancreatic duct likely relates to chronic pancreatitis. Spleen: Normal noncontrast appearance. Adrenal glands: Poorly visualized. Kidneys and ureters: Atrophic [place] kidneys bilaterally. Bladder: Circumferentially thick-walled though under distended. Pelvic organs: Normal noncontrast appearance. Extensive uterine vascular calcification, which may imply underlying diabetes. Bowel: Fluid in the colon suggests a diarrheal state. Diffuse colonic wall thickening most severe in the sigmoid colon and rectum. Moderate stool burden in the ascending colon. The cecum is poorly defined. Suggestion of a loculated fluid collection along the inferior posterior aspect of the cecum (series 3 image 314), poorly defined in the absence of contrast but possibly extraperitoneal. Significant proximal small bowel dilation, which taper smoothly upstream. The transition point appears to be located in the superior pelvis, where there is fecal material contained within the small bowel (series 3 image 333). Distal small bowel is decompressed and may be thick-walled. Peritoneal cavity: Extensive mesenteric edema. Peritoneal thickening suggested. Trace abdominal pelvic ascites. No free intraperitoneal gas. Lymph nodes: No gross lymphadenopathy allowing for noncontrast technique. Vasculature: Atherosclerosis of the normal caliber abdominal aorta. Abdominal wall: Extensive body wall edema. Musculoskeletal: Severe degenerative changes of the hips, right greater than left. IMPRESSION: 1. Findings suspicious for small bowel obstruction at the level of the mid to distal small bowel in the superior pelvis. This is poorly defined in the absence of intravenous contrast. 2. Suggestion of diffuse peritoneal thickening, which raises concern for peritonitis. 3. Fluid collection posterior and inferior to the cecum, possibly extraperitoneal. This would also be better evaluated in the presence of intravenous contrast and is suspicious for an abscess. 4. Diffuse mesenteric edema, small abdominal pelvic ascites, and body wall edema likely indicates volume overload. 5. Chronic pancreatitis. 6. Cholelithiasis. 7. Chronic renal atrophy. Electronically signed by: Sixto Palacios M.D. 01/02/2018 11:49 AM Dictated Date/Time: 01/02/2018 11:40 AM
[2018-01-02] MEDS ORDERED: INSULIN IV INFUSION PROTOCOL STA ×2 (12:08→12:10)
[2018-01-02] MEDS ORDERED: SODIUM CHLORIDE 0.9% 1000ML 1,000 ML IV ONE (12:10)
[2018-01-02] MEDS ORDERED: SEVERE STRESS LEVEL ONE (12:15)
[2018-01-02] MEDS ORDERED: DKA GOAL RANGE 150-250 mg/dl 1 EA ONE ×2 (12:15)
[2018-01-02] MEDS ORDERED: PENDING NSS+20mEq KCL IVF SCH (12:15)
[2018-01-02] MEDS ORDERED: PENDING D5 1/2NS+20mEq KCL IVF SCH (12:15)
--- NOTE | 2018-01-02 12:15 | EMERGENCY ROOM VISIT NOTE ---
ED Visit Note First contact with patient: 07:28 Patient was seen by our PA/RADAR OPERATOR. I was involved in the patient's care and did evaluate the patient myself. I was involved in the care throughout the ER stay. The patient presents with abdominal distention and pain. She had fallen earlier. She does have a left humeral head/neck fracture. This has been immobilized. She does have a bowel obstruction by CT. An NG tube is being attempted. Hospitalization is required.
[2018-01-02] MEDS ORDERED: ONDANSETRON INJ 2 MG/ML 2 ML VIAL IV PRN (12:30)
--- NOTE | 2018-01-02 12:55 | History and Physical ---
History & Physical Date & Time of Service: Jan 02, 2018 at 12:55 Chief Complaint: Diabetes, Left Shoulder Fracture Primary Care Physician: Sixto Belal M.D. History of Present Illness Source: patient, clinic records, hospital records This is a 67yo F with a PMH of ESRD on dialysis, Type 1 DM, HTN and other medical problems listed below who presents after a fall this AM. Patient was letting her cats out when she lost her balance and fell onto her left shoulder. Denies any LOC or head trauma. Has been experiencing worsening abdominal pain since Saturday with associated nausea and anorexia. Was hospitalized last August for acute appendicitis with rupture which was treated conservatively with IV antibiotics. Has experienced intermittent bouts of pain over the last few months and is not able to say what exacerbates pain. Has had diarrhea over the past few weeks and phoslo was recently held in order for bowel rest, per surgery clinic note. Has been taking tums with some relief as well as Percocet PRN. Currently endorses 8/10 left shoulder pain as well as 6/10 lower abdominal pain. Endorses nausea and lightheadedness. Denies fever, chills, chest pain, SOB , vomiting, melena, hematochezia. Last BM was 2 days ago. Receives dialysis MWF with her last session yesterday. Has not been taking home medications since Saturday. In ED, L shoulder XR showed comminuted minimally displaced humerus neck fracture. CT abd/pelvis with suspicion for small bowel obstruction. BSG is elevated to 448. Past Medical/Surgical History Medical Problems: (1) Acute appendicitis with rupture Permanent Comment: Aug 2017. Medically managed Status: Chronic (2) Anemia Status: Chronic (3) Benign hypertension with ESRD (end-stage renal disease) Status: Chronic (4) Diabetes Status: Chronic (5) ESRD (end stage renal disease) on dialysis Status: Chronic (6) Hyperparathyroidism due to ESRD on dialysis Status: Chronic (7) Hypertension Status: Chronic (8) Liver failure Status: Chronic (9) Renal failure Status: Chronic (10) Secondary hyperparathyroidism of renal origin Status: Chronic (11) Von Willebrand disease Status: Chronic Family History No pertinent family history Social History Smoking Status: Never Smoker Drug Use: none Marital Status: Housing status: lives with significant other Occupational Status: retired Immunizations History of Influenza Vaccine: Yes Influenza Vaccine Date: Sep 27, 2017 History of Tetanus Vaccine?: Unknown History of Pneumococcal: Yes Pneumococcal Date: Nov 01, 2016 History of Hepatitis B Vaccine: Unknown Allergies Coded Allergies: Adhesives (Verified Allergy, Intermediate, RASH, 01/02/18) Amoxicillin (Verified Allergy, Intermediate, RASH, 01/02/18) Ampicillin (Verified Allergy, Intermediate, RASH, 01/02/18) Erythromycin (Verified Allergy, Intermediate, RASH, 01/02/18) Etodolac (Verified Allergy, Intermediate, RASH, 01/02/18) Penicillins (Verified Allergy, Intermediate, RASH, 01/02/18) Sulfa Antibiotics (Verified Allergy, Intermediate, RASH, 01/02/18) Aspirin (Verified Allergy, Mild, RASH, 01/02/18) Sevelamer (Verified Allergy, Mild, rash, 01/02/18) Home Medications Scheduled Calcium Acetate (Phoslo 667 Mg), 3 CAPSULES PO WM Calcium Acetate (Phoslo 667 Mg), 1 CAP PO with snacks Calcium Carbonate (Tums), 2 TABS PO DAILY Cholecalciferol (Vitamin D3), 1,000 UNITS PO QAM Furosemide (Furosemide), 80 MG PO QAM Hydralazine Hcl (Apresoline), 1 TAB PO TID Insulin Glargine (Lantus), 7 UNITS SC QAM Lisinopril (Zestril), 40 MG PO HS Metoprolol Tartrate (Lopressor) (Lopressor), 50 MG PO BID Multiple Vitamins W/ Minerals (Prorenal Vital), 1 TAB PO QAM Scheduled PRN Insulin Aspart (Novolog Flexpen), 0-40 UNITS SQ MEALS AFTER 1700 PRN for 1 UNIT FOR EVERY SEVEN CARBS Oxycodone/Acetaminophen 5MG/325MG (Percocet 5MG/325MG), 1-2 TABLETS PO Q4H PRN for Pain Psyllium (Metamucil Fiber), 1 TSP PO DAILY PRN for Constipation Review of Systems Ten systems reviewed and negative except as noted in the HPI. Physical Exam Vital Signs Date Time Temp Pulse Resp B/P (MAP) Pulse Ox O2 Delivery O2 Flow Rate FiO2 01/02/18 12:23 82 25 131/70 93 Room Air 01/02/18 10:59 79 24 126/63 96 Room Air 01/02/18 09:30 74 20 138/61 92 Room Air 01/02/18 08:25 74 01/02/18 07:14 36.3 76 17 123/79 97 Room Air General Appearance: + mild distress Head: normocephalic, atraumatic Eyes: normal inspection, PERRL, sclerae normal ENT: normal ENT inspection, hearing grossly normal, pharynx normal (dry mucous membranes ) Neck: supple, thyroid normal, trachea midline Respiratory/Chest: chest non-tender, no respiratory distress, no accessory muscle use, + pertinent finding (coarse breath sounds throughout ) Cardiovascular: regular rate, rhythm, normal peripheral pulses, + systolic murmur Abdomen/GI: + tenderness (Diffuse TTP, no guarding ), + abnormal bowel sounds ( hypoactive ) Back: normal inspection Extremities/Musculoskelatal: no calf tenderness, + pertinent finding (L antecubital AV fistula visualized. L shoulder immobilized in sling. Normal cap refill in L hand. Trace BLE edema. ) Neurologic/Psych: no motor/sensory deficits, alert, normal mood/affect, oriented x 3 Skin: normal color, warm/dry Diagnostics Laboratory Results Results Past 24 Hours Test 01/02/18 08:00 01/02/18 09:32 01/02/18 10:04 01/02/18 10:57 Range/Units White Blood Count 15.50 4.8-10.8 K/uL Red Blood Count 3.83 4.2-5.4 M/uL Hemoglobin 11.4 12.0-16.0 g/dL Hematocrit 37.1 37-47 % Mean Corpuscular Volume 96.9 80-100 fL Mean Corpuscular Hemoglobin 29.8 25-34 pg Mean Corpuscular Hemoglobin Concent 30.7 32-36 g/dl Platelet Count 405 130-400 K/uL Mean Platelet Volume 9.4 7.4-10.4 fL Neutrophils (%) (Auto) 89.9 % Lymphocytes (%) (Auto) 3.9 % Monocytes (%) (Auto) 5.5 % Eosinophils (%) (Auto) 0.0 % Basophils (%) (Auto) 0.1 % Neutrophils # (Auto) 13.94 1.4-6.5 K/uL Lymphocytes # (Auto) 0.60 1.2-3.4 K/uL Monocytes # (Auto) 0.85 0.11-0.59 K/uL Eosinophils # (Auto) 0.00 0-0.5 K/uL Basophils # (Auto) 0.01 0-0.2 K/uL RDW Standard Deviation 56.0 36.4-46.3 fL RDW Coefficient of Variation 15.8 11.5-14.5 % Immature Granulocyte % (Auto) 0.6 % Immature Granulocyte # (Auto) 0.10 0.00-0.02 K/uL Sodium Level 132 136-145 mmol/L Potassium Level 3.8 3.5-5.1 mmol/L Chloride Level 89 98-107 mmol/L Carbon Dioxide Level 33 21-32 mmol/L Anion Gap 10.0 3-11 mmol/L Blood Urea Nitrogen 31 7-18 mg/dl Creatinine 3.87 0.60-1.20 mg/dl Est Creatinine Clear Calc Drug Dose 10.5 ml/min Estimated GFR () 13.1 Estimated GFR (Non- 11.3 BUN/Creatinine Ratio 7.9 10-20 Random Glucose 448 70-99 mg/dl Calcium Level 9.1 8.5-10.1 mg/dl Total Bilirubin 0.5 0.2-1 mg/dl Direct Bilirubin 0.3 0-0.2 mg/dl Aspartate Amino Transf (AST/SGOT) 16 15-37 U/L Alanine Aminotransferase (ALT/SGPT) 17 12-78 U/L Alkaline Phosphatase 246 45-117 U/L Total Protein 6.6 6.4-8.2 gm/dl Albumin 2.0 3.4-5.0 gm/dl Lipase 20 73-393 U/L Beta-Hydroxybutyric Acid 5.62 0.2-2.81 mg/dL Bedside Glucose 422 390 387 70-90 mg/dl Test 01/02/18 12:10 01/02/18 12:15 01/02/18 12:26 Range/Units Microbiology Results 01/02/18 Blood Culture, Ordered Pending 01/02/18 Blood Culture, Ordered Pending Diagnostic Radiology CT abd/pelvis without contrast: IMPRESSION: 1. Findings suspicious for small bowel obstruction at the level of the mid to distal small bowel in the superior pelvis. This is poorly defined in the absence of intravenous contrast. 2. Suggestion of diffuse peritoneal thickening, which raises concern for peritonitis. 3. Fluid collection posterior and inferior to the cecum, possibly extraperitoneal. This would also be better evaluated in the presence of intravenous contrast and is suspicious for an abscess. 4. Diffuse mesenteric edema, small abdominal pelvic ascites, and body wall edema likely indicates volume overload. 5. Chronic pancreatitis. 6. Cholelithiasis. 7. Chronic renal atrophy. L Shoulder XR: IMPRESSION: 1. Comminuted minimally displaced and impacted fracture of the neck of the left humerus. 2. Osteopenia. 3. Trace left pleural effusion. L Rib XR: IMPRESSION: 1. Fracture left humeral neck. 2. Negative chest. 3. Negative left ribs. EKG Sinus rhythm with short CA interval Impression Assessment and Plan This is a 67yo F with a PMH of ESRD on dialysis, Type 1 DM, HTN and other medical problems listed below who presents after a fall this AM and was found to have a left humeral neck fracture, SBO and hyperglycemia. Small bowel obstruction: -Abd pain, nausea x 6 days. Last BM 2 days ago -Leukocytosis of 15.5. Blood cultures pending. Lactate pending -H/o medically managed appendicitis with rupture in Aug 2017 -Has been following with Dr. Ryan of general surgery -CT abd/pelvis with suspicion for small bowel obstruction at the level of the mid to distal small bowel in the superior pelvis. Suggestion of diffuse peritoneal thickening, which raises concern for peritonitis.Fluid collection posterior and inferior to the cecum, possibly extraperitoneal. Suspicious for an abscess. -General surgery, anesthesiology consulted -NG tube placed -IV cipro, flagyl -Pain control -NPO L Humeral neck fracture: -Fell on shoulder this AM -XR with comminuted minimally displaced and impacted fracture of the neck of the attending addendum left humerus -Intact neurovascularly -Shoulder immobilized in splint -Ortho consulted. No immediate concerns Hyperglycemia 2/2 DM I: -Non-compliant with insulin, infection -Has not been compliant with insulin for last few days -BSG of 448 upon arrival -10 units IV insulin given in ED -Glycemic control consult for insulin infusion -No anion gap. B hydroxybutyric acid elevated to 5.62 -Urine ketones and ABG pending -Will discuss IVF mgmt with nephro in setting of ESRD ESRD on dialysis: -Dialysis MWF -Follows with [facility] [place] nephro -Usually takes 80mg PO lasix on non-dialysis days -Last lasix dose was last Saturday -Nephro consulted HTN: -Hold home agents -Hydralazine 10mg IV Q8 for SBP >160 DVT Ppx: SCDs for now. Code status: FULL per discussion with patient PCP: Jena Dispo: Admitted to telemetry. Discharge planning consulted. Patient seen in collaboration with Dr. Mendosa. Please see addendum. ATTENDING ADDENDUM: Patient seen and examined care coordinated with Lily Pettit PA-C. 67-year-old female with history of end-stage renal disease on dialysis, type 1 diabetes on insulin hypertension Presented to ER after sustaining a fall leading to fracture of the left shoulder. Patient been complaining of abdominal pain since last Saturday CT abdomen pelvis shows small bowel obstruction Patient's blood sugar is elevated more than 400, normal anion gap, beta hydroxybutyrate level elevated Physical exam: General: Frail appearing female, in mild distress due to abdominal pain HEENT-NG tube present, draining bilious fluids HEART: Regular tachycardic LUNGS: Clear to auscultate, no rales or wheeze ABDOMEN: Distended, diffusely tender, in audible bowel sounds Extremity: Tenderness on left shoulder, on sling, left upper arm AV fistula positive thrill Neuro: Generalized weakness, alert awake oriented 3, no focal neurological deficit ASSESSMENT AND PLAN Small bowel obstruction: Order for n.p.o., IV NG tube suction Empiric antibiotic with IV Cipro and Flagyl and CT abdomen pelvis which suggests diffuse peritoneal thickening Surgery referral requested Left humeral neck fracture: Status post mechanical fall Orthopedics consult requested Shoulder immobilized on splint Hyperglycemia /type 1 diabetes Patient has not been-taking any insulin due to ongoing nausea, poor appetite BSG elevated possible secondary to stress/infection/small bowel obstruction -Ordered for IV insulin drip -Pharmacy consulted for glycemic management Possible sepsis, Possible secondary to GI source, small bowel obstruction, Diffuse peritoneal thickening, with concern for peritonitis noted in CT abdomen pelvis Patient has lactic acid elevated Leukocytosis of 15 K, tachycardia Order for gentle IV fluids, empiric antibiotic with Cipro and Flagyl Blood culture ordered Stool for C. difficile (patient reports of 2 episodes diarrhea yesterday) Continue telemetry monitoring End-stage renal disease on dialysis: Had scheduled dialysis yesterday Does not appear to be volume overloaded -Gentle hydration ordered: NSS at a rate of 80 mL/h into 1 L only- elevated lactic acid/hypoglycemia Nephrology consulted Patient is scheduled to have dialysis tomorrow Full code Please refer to Lily Wilver PA-C documentation for further discussion of other issues Melissa Deondre MD Resuscitation Status VTE Prophylaxis Will order VTE Prophylaxis: Yes
[2018-01-02] MEDS ORDERED: METRONIDAZOLE 500MG / 100ML NSS IV STA (12:59)
[2018-01-02] MEDS ORDERED: CIPROFLOXACIN 400MG / 200ML D5W IV STA (12:59)
[2018-01-02] MEDS ORDERED: INSULIN ASPART 100 UNITS/ML 3 ML PEN SC SCH ×3 (13:00→18:00)
[2018-01-02] MEDS ORDERED: PHARMACY GLYCEMIC MGMT CONSULT PRN (13:09)
[2018-01-02 13:13] LABS: PHOSPHORUS 6.3 mg/dl (2.5-4.9)
[2018-01-02] MEDS ORDERED: CIPROFLOXACIN CONSULT ACTIVE PRN (13:15)
[2018-01-02] MEDS ORDERED: GLUCAGON FOR INJ 1 MG VIAL SQ PRN (13:15)
[2018-01-02] MEDS ORDERED: NSS + 20MEQ KCL 1000ML 1,000 ML IV SCH (13:15)
[2018-01-02] MEDS ORDERED: HydrALAZINE HCL 20 MG/ML VIAL IV. PRN (13:15)
[2018-01-02] MEDS ORDERED: DEXTROSE 50% 50 ML SYR IV PRN (13:15)
[2018-01-02] MEDS ORDERED: GLUCOSE 40% GEL 15 GM TUBE PO PRN (13:15)
[2018-01-02] MEDS ORDERED: GLUCOSE 10 TABS/TUBE PO PRN (13:15)
[2018-01-02] MEDS: INSULIN GLARGINE SOLOSTAR 100 UNITS/ML 3 ML PEN SC SCH (13:24)
[2018-01-02 13:26] VITALS: O2SAT 93; BMI 19.4
[2018-01-02] MEDS ORDERED: [UNRECOGNIZED DRUG - REMARK] PRN (13:30)
[2018-01-02 13:42] LABS: INR 1.2 (0.9-1.1)
[2018-01-02] MEDS: INSULIN REGULAR 250 UNITS in SODIUM CHLORIDE 0.9% 250ML 250 ML IV SCH ×4 (13:56→17:09)
[2018-01-02 14:45] VITALS: BP 118/60; PULSE 78; TEMP 36.6; O2SAT 93
--- NOTE | 2018-01-02 14:48 | Orthopedic Consultation ---
Orthopedic Consultation Date of Consultation: Jan 02, 2018. Attending Physician: Jacques Blackwell MD Reason for Consultation: Left proximal humerus fracture History of Present Illness this 67 yo F being seen in ED for diarrhea, weakness and generalized abdominal pain with decreased appetite for the past several days, also state that she tripped over her cat this AM causing her to fall and land on her left shoulder. Pt state that shoulder aches and that she has very limited ROM due to pain. Also she c/o swelling in the shoulder region and is concerned because she has a dialysis access port in the Lt arm. Pt denies headache, visual disturbances, LOC, CP, SOB, nausea or vomiting or pain in any other extremities. She does have noticeable arthritic change in both hands. Patient is being admitted for a small bowel obstruction. Significant PMH of diabetes, end stage renal disease requiring dialysis. Past Medical/Surgical History Medical Problems: (1) Abnormal computed tomography angiography (CTA) of abdomen and pelvis Status: Acute (2) Acidosis Status: Acute (3) Acute renal failure Status: Acute (4) Bilateral pleural effusion Status: Acute (5) Congestive heart failure Status: Acute (6) Hyperglycemia Status: Acute (7) Hypertension Status: Chronic (8) Pneumonia Status: Acute (9) Pneumonia Status: Acute (10) Respiratory failure Status: Acute (11) RLQ abdominal pain Status: Acute (12) Shortness of breath Status: Acute Family History No pertinent family history Social History Smoking Status: Never Smoker Smokeless Tobacco Use: No Alcohol Use: none Drug Use: none Marital Status: Housing Status: lives with family Occupation Status: retired Allergies Coded Allergies: Adhesives (Verified Allergy, Intermediate, RASH, 01/02/18) Amoxicillin (Verified Allergy, Intermediate, RASH, 01/02/18) Ampicillin (Verified Allergy, Intermediate, RASH, 01/02/18) Erythromycin (Verified Allergy, Intermediate, RASH, 01/02/18) Etodolac (Verified Allergy, Intermediate, RASH, 01/02/18) Penicillins (Verified Allergy, Intermediate, RASH, 01/02/18) Sulfa Antibiotics (Verified Allergy, Intermediate, RASH, 01/02/18) Aspirin (Verified Allergy, Mild, RASH, 01/02/18) Sevelamer (Verified Allergy, Mild, rash, 01/02/18) Home Medications Scheduled Calcium Acetate (Phoslo 667 Mg), 3 CAPSULES PO WM Calcium Acetate (Phoslo 667 Mg), 1 CAP PO with snacks Calcium Carbonate (Tums), 2 TABS PO DAILY Cholecalciferol (Vitamin D3), 1,000 UNITS PO QAM Furosemide (Furosemide), 80 MG PO QAM Hydralazine HCl (Hydralazine HCl), 50 MG PO TID Insulin Glargine (Lantus), 7 UNITS SC QAM Lisinopril (Zestril), 40 MG PO HS Metoprolol Tartrate (Lopressor) (Lopressor), 50 MG PO BID Multiple Vitamins W/ Minerals (Prorenal Vital), 1 TAB PO QAM Scheduled PRN Insulin Aspart (Novolog Flexpen), 0-40 UNITS SQ MEALS AFTER 1700 PRN for 1 UNIT FOR EVERY SEVEN CARBS Oxycodone/Acetaminophen 5MG/325MG (Percocet 5MG/325MG), 1-2 TABLETS PO Q4H PRN for Pain Psyllium (Metamucil Fiber), 1 TSP PO DAILY PRN for Constipation Current Inpatient Medications Current Inpatient Medications Medications (Trade) Dose Ordered Sig/Eduardo Route Start Time Stop Time Status Last Admin Dose Admin Miscellaneous Information (Consult Glycemic Management Pharmacy) 1 ea UD PRN N/A 01/02/18 13:09 02/01/18 13:08 Ondansetron HCl (Zofran Inj) 4 mg Q6H PRN IV 01/02/18 12:30 02/01/18 12:29 Insulin Human Regular 250 units/ Sodium Chloride 252.5 ml @ 0 mls/hr Q24H IV 01/02/18 13:15 02/01/18 13:14 01/02/18 13:56 1.8 MLS/HR Insulin Aspart (novoLOG ASPART) SLIDING SCALE [facility] SC 01/02/18 18:00 02/01/18 18:59 Glucose (Glucose 40% Gel) 15-30 GRAMS 15 GRAMS... UD PRN PO 01/02/18 13:15 02/01/18 13:14 Glucose (Glucose Chew Tab) 4-8 Tablets 4 Tabl... UD PRN PO 01/02/18 13:15 02/01/18 13:14 Dextrose (Dextrose 50% 50ML Syringe) 25-50ML OF 50% DW IV FOR... UD PRN IV 01/02/18 13:15 02/01/18 13:14 Glucagon (Glucagon Inj) 1 mg UD PRN SQ 01/02/18 13:15 02/01/18 13:14 Morphine Sulfate (MoRPHine SULFATE INJ) 1 mg Q4 PRN IV 01/02/18 13:15 01/16/18 13:14 Hydralazine HCl (HydrALAZINE INJ) 10 mg Q8 PRN IV. 01/02/18 13:15 02/01/18 13:14 Insulin Glargine (Lantus Solostar Pen) 5 units DAILY SC 01/02/18 13:15 02/01/18 13:14 01/02/18 13:24 5 UNITS Ciprofloxacin (Consult) 1 ea UD PRN N/A 01/02/18 13:15 02/01/18 13:14 Ciprofloxacin/ Dextrose 400 mg/ Prmx 200 ml @ 100 mls/hr Q24H IV 01/03/18 16:00 01/13/18 15:59 Metronidazole 500 mg/Prmx 100 ml @ 100 mls/hr Q8H IV 01/02/18 22:00 01/12/18 21:59 Miscellaneous Information 1 ea UD PRN N/A 01/02/18 13:30 02/01/18 13:29 Review of Systems Constitutional: + weakness, + fatigue, No fever, No chills, No sweats, No weight loss, No problem reported Eyes: No worsening of vision, No eye pain, No redness, No discharge, No diplopia, No problem reported ENT: No hearing loss, No unusual epistaxis, No nasal symptoms, No sore throat, No tinnitus, No dental problems, No trouble swallowing, No problem reported Respiratory: No cough, No sputum, No wheezing, No shortness of breath, No dyspnea on exertion, No dyspnea at rest, No hemoptysis, No problem reported Cardiovascular: No chest pain, No orthopnea, No PND, No edema, No claudication , No palpitations, No problem reported Abdomen: + pain, + diarrhea, No nausea, No vomiting, No constipation, No GI bleeding, No problem reported Musculoskeletal: + joint pain, + swelling, + problem reported (Left shoulder pain and limited ROM) Neurologic: + weakness, No memory loss, No paralysis, No numbness/tingling, No vertigo, No balance problems, No problem reported Integumentary: No rash, No itch, No new/changing skin lesions, No color change , No bleeding, No problem reported Physical Exam Date Time Temp Pulse Resp B/P (MAP) Pulse Ox O2 Delivery O2 Flow Rate FiO2 01/02/18 14:11 84 18 117/71 93 01/02/18 13:29 85 01/02/18 13:26 93 Room Air 01/02/18 12:23 82 25 131/70 93 Room Air 01/02/18 10:59 79 24 126/63 96 Room Air 01/02/18 09:30 74 20 138/61 92 Room Air 01/02/18 08:25 74 01/02/18 07:14 36.3 76 17 123/79 97 Room Air General Appearance: WD/WN, no apparent distress Head: normocephalic, atraumatic Eyes: PERRL, EOMI Neck: trachea midline Respiratory/Chest: no respiratory distress, no accessory muscle use Extremities/Musculoskelatal: + pertinent finding (Left shoulder/upper extremity : tenderness to palpation over proximal humerus with notable edema. ROM very limited at shoulder. Able to reach term flex/ext at elbow. Limited ROM in Lt wrist and fingers/hand do to arthritic changes. NV intact in Lt UE. Periph pulses easily palpble. Port in Lt antecubital area appears appropriate.) Neurologic/Psych: alert, normal mood/affect, oriented x 3 Skin: normal color Laboratory Results Last 24 Hours Test 01/02/18 08:00 01/02/18 09:32 01/02/18 10:04 01/02/18 10:57 White Blood Count 15.50 K/uL Red Blood Count 3.83 M/uL Hemoglobin 11.4 g/dL Hematocrit 37.1 % Mean Corpuscular Volume 96.9 fL Mean Corpuscular Hemoglobin 29.8 pg Mean Corpuscular Hemoglobin Concent 30.7 g/dl Platelet Count 405 K/uL Mean Platelet Volume 9.4 fL Neutrophils (%) (Auto) 89.9 % Lymphocytes (%) (Auto) 3.9 % Monocytes (%) (Auto) 5.5 % Eosinophils (%) (Auto) 0.0 % Basophils (%) (Auto) 0.1 % Neutrophils # (Auto) 13.94 K/uL Lymphocytes # (Auto) 0.60 K/uL Monocytes # (Auto) 0.85 K/uL Eosinophils # (Auto) 0.00 K/uL Basophils # (Auto) 0.01 K/uL RDW Standard Deviation 56.0 fL RDW Coefficient of Variation 15.8 % Immature Granulocyte % (Auto) 0.6 % Immature Granulocyte # (Auto) 0.10 K/uL Prothrombin Time 12.5 SECONDS Prothromb Time International Ratio 1.2 Sodium Level 132 mmol/L Potassium Level 3.8 mmol/L Chloride Level 89 mmol/L Carbon Dioxide Level 33 mmol/L Anion Gap 10.0 mmol/L Blood Urea Nitrogen 31 mg/dl Creatinine 3.87 mg/dl Est Creatinine Clear Calc Drug Dose 10.5 ml/min Estimated GFR () 13.1 Estimated GFR (Non- 11.3 BUN/Creatinine Ratio 7.9 Random Glucose 448 mg/dl Calcium Level 9.1 mg/dl Phosphorus Level 6.3 mg/dl Magnesium Level 2.2 mg/dl Total Bilirubin 0.5 mg/dl Direct Bilirubin 0.3 mg/dl Aspartate Amino Transf (AST/SGOT) 16 U/L Alanine Aminotransferase (ALT/SGPT) 17 U/L Alkaline Phosphatase 246 U/L Total Protein 6.6 gm/dl Albumin 2.0 gm/dl Lipase 20 U/L Beta-Hydroxybutyric Acid 5.62 mg/dL Bedside Glucose 422 mg/dl 390 mg/dl 387 mg/dl Test 01/02/18 12:10 01/02/18 12:26 Assessment & Plan Assessment: Nondisplaced left proximal humerus fracture Plan: Coaptation splint place on Lt upper arm was removed due to constriction of port site. Ice placed on shoulder. Arm placed in sling with 100-110 degrees of flexion. At this point treatment for the fracture will be conservative with the use of an arm sling. Pt should follow up in our clinic in one week for a recheck
--- NOTE | 2018-01-02 15:23 | Pharmacy Progress Note ---
Glycemic Control Intl Consult Date of Service Jan 02, 2018. Scope Glycemic Pharmacist consulted by Dr Mendosa on 01/02/18 for glycemic control and to write orders per [facility] inpatient glycemic control protocol. Objective Weight (Kilograms): 48.000 Accuchecks BSG (last 24hrs): Test 01/02/18 08:00 01/02/18 09:32 01/02/18 10:04 01/02/18 10:57 Random Glucose 448 mg/dl (70-99) Bedside Glucose 422 mg/dl (70-90) 390 mg/dl (70-90) 387 mg/dl (70-90) Laboratory Data (last 24hrs) Test 01/02/18 08:00 Anion Gap 10.0 mmol/L BUN/Creatinine Ratio 7.9 Blood Urea Nitrogen 31 mg/dl Creatinine 3.87 mg/dl Potassium Level 3.8 mmol/L Sodium Level 132 mmol/L White Blood Count 15.50 K/uL Red Blood Count 3.83 M/uL Hemoglobin 11.4 g/dL Hematocrit 37.1 % Mean Corpuscular Volume 96.9 fL Mean Corpuscular Hemoglobin 29.8 pg Mean Corpuscular Hemoglobin Concent 30.7 g/dl Platelet Count 405 K/uL Mean Platelet Volume 9.4 fL Neutrophils (%) (Auto) 89.9 % Lymphocytes (%) (Auto) 3.9 % Monocytes (%) (Auto) 5.5 % Eosinophils (%) (Auto) 0.0 % Basophils (%) (Auto) 0.1 % Neutrophils # (Auto) 13.94 K/uL Lymphocytes # (Auto) 0.60 K/uL Monocytes # (Auto) 0.85 K/uL Eosinophils # (Auto) 0.00 K/uL Basophils # (Auto) 0.01 K/uL Recent Pertinent Medications Outpatient Anti-diabetic Regimen: * Lantus 7 units SQ qAM * Novolog 0-40 units SQ prn for meals after 1700 (carb ratio: 7) * A1c = 7.2% 11/29/17 Risk Factors for Insulin Resistance: * Infection: recent ruptured appendix, ?bowel obstruction * IVF: none -- dialysis pt * Diet: NPO Assessment & Plan ASSESSMENT: * Ms Turner is a type 1 diabetic female admitted with a L shoulder injury. * Significant PMH includes ESRD on dialysis, recent appendix rupture and ?bowel obstruction * Patient was quite hyperglycemic on admission, but labs do not indicate DKA. * As patient is Type 1, with reported labile BSGs, will initially resolve hyperglycemia with insulin infusion and then transition to SQ basal/bolus regimen. PLAN FOR INPATIENT GLYCEMIC CONTROL: * Starting IV insulin infusion per severe stress protocol (no bolus) * Goal Range 120 - 200 mg/dl * Okay to stop insulin infusion when BSG less than 200mg/dL x2 * Basal insulin with LANTUS 5 units SQ daily -- first dose given in ED on admission * Correctional Insulin with NOVOLOG per scale q4h, once insulin infusion is stopped per criteria * Goal Range: Low 120 mg/dL - High 160 mg/dL * Correction Factor: 35 mg/dL/unit * Nutritional / Prandial insulin per carb ratio of 1 unit per 10 grams CHO consumed * Please note that the plan above was derived based on current level of insulin resistance and hospital stress. These recommendations are appropriate for inpatient admission only. Plan of care upon discharge will need to be reassessed to avoid potential outpatient hypo/hyperglycemia. Thank you.
--- NOTE | 2018-01-02 16:07 | EMERGENCY ROOM VISIT NOTE ---
ED Visit Note First contact with patient: 07:28 Chief Complaint: Fall. History of Present Illness: Ms. Turner is a 67-year-old white female who was brought into the ED via wheelchair accompanied by her daughter complaining of left shoulder pain after a fall. Patient reports that this morning she got up approximately 2 hours ago to let her cat in the house. She reports she lost her balance and fell onto the left shoulder. She reports she immediately had pain in the area of the proximal shoulder. Her pain has been constant. She describes her pain as a sharp throbbing sensation. She rates her discomfort 9/10. Her pain is nonradiating. Her pain worsens with all attempts at movement of the shoulder and palpation. She has not identified any alleviating factors related to the pain. She has not taken any medications for pain prior to arrival at the hospital. Patient reports at the time of the fall she did not strike her head or have a loss of consciousness and since the fall she denies all signs and symptoms of head injury. Additionally patient reports that in August she had a ruptured appendicitis and since that time she has been having pain in the right lower quadrant. Her pain has now exacerbated and is entirely through the abdomen with prominence in the lower abdomen. She reports that she saw Dr. Fleming the other day who did some basic blood work and she is scheduled to have a CT. Currently patient describes this abdominal pain as a sharp sensation. She places it throughout her abdomen with prominence throughout the lower abdomen. She rates this discomfort 6/10. Her pain worsens with palpation. She has not identified any alleviating factors related to the pain. She has not taken any medications for her pain. She reports she has noted some mild decrease in appetite and nausea with her pain. Additionally daughter reports when she got to her mother's house she was picked up her mother by ribs and afterwards her mother started having rib pain on the left side of the chest. When I questioned the patient about rib pain she reported she was not experiencing any but the daughter was concerned with a possible broken rib. She denies fevers, chills, sweats, skin eruptions, skin color changes, upper respiratory tract symptoms, cough, wheezing, shortness of breath, hematemesis, hematochezia, melena, urinary symptoms, diarrhea; last bowel movement was approximately 2 days ago and she described as light brown and soft. Review of Systems: As noted above in history of present illness. All body systems were reviewed and found to be negative as noted above. Past Medical History: As previously noted, end-stage renal disease, type 1 diabetes, hypertension, anemia, hyperparathyroidism, liver failure, renal failure, von Willebrand's disease. Current Medications: Medications Dose Route/Sig Max Daily Dose Days Date Category Dose Instructions Hydralazine HCl 50 Mg Tab 50 Mg PO TID 01/02/18 Reported Furosemide 80 Mg Tab 80 Mg PO QAM 11/28/17 Reported PT TAKES ON SATURDAY,SATURDAY,SATURDAY, SATURDAY Percocet 5MG/325MG (Oxycodone/Acetaminophen) Tab 1-2 Tablets PO Q4H PRN 10/17/17 Reported PAIN Lopressor (Metoprolol Tartrate) 50 Mg Tab 50 Mg PO BID 10/17/17 Reported Zestril (Lisinopril) 40 Mg Tab 40 Mg PO HS 10/17/17 Reported Tums (Calcium Carbonate) 500 Mg Chew 2 Tabs PO DAILY 06/07/17 Reported Metamucil Fiber (Psyllium) 51.7 % Jef 1 Tsp PO DAILY PRN 06/07/17 Reported Lantus (Insulin Glargine) 100 Unit/Ml Inj 7 Units SC QAM 06/07/17 Reported Phoslo 667 Mg (Calcium Acetate) 667 Mg Cap 1 Cap PO WITH SNACKS 06/07/17 Reported Currently held per gen surg Prorenal Vital (Multiple Vitamins W/ Minerals) 1 Tab Tab 1 Tab PO QAM 11/11/15 Reported Phoslo 667 Mg (Calcium Acetate) 667 Mg Cap 3 Capsules PO WM 11/11/15 Reported Currently held per gen surg Vitamin D3 (Cholecalciferol) 1,000 Inter.unit Tab 1,000 Units PO QAM 10/08/15 Reported Novolog Flexpen (Insulin Aspart) 100 Units/Ml Inj 0-40 Units SQ MEALS AFTER 1700 PRN 10/08/15 Reported Allergies to Medications: Penicillin, aspirin, erythromycin, etodolac, sevelamer , sulfa. Social History: Patient is not employed; she feels safe in her home environment ; she denies tobacco use. Physical Examination: Vital Signs: Date Time Temp Pulse Resp B/P (MAP) Pulse Ox O2 Delivery O2 Flow Rate FiO2 01/02/18 10:59 79 24 126/63 96 Room Air 01/02/18 09:30 74 20 138/61 92 Room Air 01/02/18 08:25 74 01/02/18 07:14 36.3 76 17 123/79 97 Room Air GENERAL: 67-year-old female in moderate distress due to pain, afebrile, nontoxic -appearing, hemodynamically stable. NEUROLOGICAL: Awake, alert and oriented to person, place and time. Answering questions appropriately and following commands. Cranial nerves II through XII grossly intact. SKIN: Warm, dry and pink. No soft tissue trauma noted. HEENT: Atraumatic and normocephalic. Skull: No bony deformities, bony crepitus , swelling or ecchymosis. No raccoons eyes or jaquez signs. No drainage from the ears with the nostril; no hemotympanum. Face: No bony tenderness, swelling or ecchymosis. PERRLA. Sclera white and conjunctiva pink. No malocclusion. No intraoral trauma. Airway patent. Speech normal and clear. Trachea midline. No jugular venous distention. BACK: No tenderness over the bony cervical, thoracic or lumbar spines. No palpable deformity, crepitus or step-offs. No CVA tenderness. THORAX: Lungs sounds are clear to auscultation and equal bilaterally with symmetrical chest wall. No wheezing, rales or rhonchi. No crepitus, tenderness , subcutaneous air or deformities noted. HEART: Regular rate and rhythm. No gallops, rubs or murmurs are appreciated. ABDOMEN: Distended and firm with diffuse moderate tenderness throughout the abdomen with lower abdominal prominence. Decreased bowel sounds in all quadrants. No guarding, rigidity or organomegaly. UPPER EXTREMITIES: No gross bony deformity. Moderate tenderness in the left shoulder with crepitus over the medial and lateral aspect. No tenderness in the distal humerus, elbow, forearm, wrist or hand. Distal pulses are intact and equal bilaterally. Capillary refill was brisk and she was able to distinguish light sensations to all dermatomes. On the right. Patient has no tenderness in the shoulder, humerus, elbow, forearm, wrist or hand. Distal neurovascular status is are intact and equal bilaterally. LOWER EXTREMITIES: No gross bony deformity. No shortening or malrotation. No tenderness in the hips, femur, knee, lower legs, ankles or feet. Distal neurovascular status is are intact and equal bilaterally. ED Course: Patient is assessed as noted above. Patient's medication list was reviewed. Laboratory Testing: Test 01/02/18 08:00 01/02/18 09:32 01/02/18 10:04 01/02/18 10:57 Range/Units White Blood Count 15.50 4.8-10.8 K/uL Red Blood Count 3.83 4.2-5.4 M/uL Hemoglobin 11.4 12.0-16.0 g/dL Hematocrit 37.1 37-47 % Mean Corpuscular Volume 96.9 80-100 fL Mean Corpuscular Hemoglobin 29.8 25-34 pg Mean Corpuscular Hemoglobin Concent 30.7 32-36 g/dl Platelet Count 405 130-400 K/uL Mean Platelet Volume 9.4 7.4-10.4 fL Neutrophils (%) (Auto) 89.9 % Lymphocytes (%) (Auto) 3.9 % Monocytes (%) (Auto) 5.5 % Eosinophils (%) (Auto) 0.0 % Basophils (%) (Auto) 0.1 % Neutrophils # (Auto) 13.94 1.4-6.5 K/uL Lymphocytes # (Auto) 0.60 1.2-3.4 K/uL Monocytes # (Auto) 0.85 0.11-0.59 K/uL Eosinophils # (Auto) 0.00 0-0.5 K/uL Basophils # (Auto) 0.01 0-0.2 K/uL RDW Standard Deviation 56.0 36.4-46.3 fL RDW Coefficient of Variation 15.8 11.5-14.5 % Immature Granulocyte % (Auto) 0.6 % Immature Granulocyte # (Auto) 0.10 0.00-0.02 K/uL Prothrombin Time 12.5 9.0-12.0 SECONDS Prothromb Time International Ratio 1.2 0.9-1.1 Sodium Level 132 136-145 mmol/L Potassium Level 3.8 3.5-5.1 mmol/L Chloride Level 89 98-107 mmol/L Carbon Dioxide Level 33 21-32 mmol/L Anion Gap 10.0 3-11 mmol/L Blood Urea Nitrogen 31 7-18 mg/dl Creatinine 3.87 0.60-1.20 mg/dl Est Creatinine Clear Calc Drug Dose 10.5 ml/min Estimated GFR () 13.1 Estimated GFR (Non- 11.3 BUN/Creatinine Ratio 7.9 10-20 Random Glucose 448 70-99 mg/dl Calcium Level 9.1 8.5-10.1 mg/dl Phosphorus Level 6.3 2.5-4.9 mg/dl Magnesium Level 2.2 1.8-2.4 mg/dl Total Bilirubin 0.5 0.2-1 mg/dl Direct Bilirubin 0.3 0-0.2 mg/dl Aspartate Amino Transf (AST/SGOT) 16 15-37 U/L Alanine Aminotransferase (ALT/SGPT) 17 12-78 U/L Alkaline Phosphatase 246 45-117 U/L Total Protein 6.6 6.4-8.2 gm/dl Albumin 2.0 3.4-5.0 gm/dl Lipase 20 73-393 U/L Beta-Hydroxybutyric Acid 5.62 0.2-2.81 mg/dL Bedside Glucose 422 390 387 70-90 mg/dl Left Shoulder X-Rays: Shows a minimally displaced comminuted impacted fracture of the neck of the left humerus. PA Chest and Left Lateral Rib X-Rays: Read by myself and the radiologist showing no infiltrates, effusions or pneumothorax. No bony abnormalities of the chest. Patient's left humeral fracture was noted. Oral Contrast Abdominal/Pelvic CT: Was reviewed by myself and read by the radiologist showing findings consistent with a small bowel obstruction of the mid to distal small bowel in the superior pelvis. Suggestions of diffuse peritoneal thickening concerning for peritonitis. Fluid collection posterior and inferior to the cecum. Diffuse mesenteric edema, small abdominal pelvic ascites and bowel wall edema. Chronic pancreatitis. Cholelithiasis. Chronic renal atrophy. Patient was hydrated with normal saline and received a total of 6 mg of morphine IV and 4 mg of Zofran IV for her pain. When her's labs started returning and she was found to be hyperglycemic she was received 10 mg of regular insulin; her blood sugar was monitored and started to decrease but she not become hypoglycemic. Patient was reassessed multiple times during her stay in the emergency department. Patient's case was reviewed with Dr. Jimenez; he independently assessed the patient we agreed on diagnostic approach, treatment, disposition and plan. Patient case was consulted with the [facility] hospitalist, Lily Pettit, for medical observation/admission. At Ms. Pettit's request I did contact Dr. Bowers, [facility], for orthopedic consultation; on his review of the films he felt the fracture was stable and would probably not need surgery. Patient and her daughter were educated about today's findings. Clinical Impression: Small bowel obstruction. Comminuted fracture of the left radial neck. Decision-Making: Initially for patients pain I considered shoulder dislocation, shoulder fracture, clavicle fracture, shoulder, fracture/dislocation and for her abdominal pain I considered bowel obstruction, constipation, peritonitis and other causes. Disposition and Plan: Patient to be brought in the hospital for medical observation/admission; please see hospitalist note for final disposition and plan.
[2018-01-02] MEDS: MoRPHine SULFATE 2 MG/ML CARP IV PRN ×2 (16:15→20:28)
[2018-01-02 16:16] LABS: CALCIUM 8.8 mg/dl (8.5-10.1); CREATININE 4.09 mg/dl (0.60-1.20); POTASSIUM 3.3 mmol/L (3.5-5.1)
--- NOTE | 2018-01-02 16:56 | Progress Note ---
Progress Note Date of Service Jan 02, 2018. Progress Note Attending note: 15:34 lab reviewed: Lactic acid elevated at 2.7 Possible secondary to GI source/small bowel obstruction Ordered for gentle hydration NSS @ 75 mL/hX 1 L only Follow lactic acid level every 4 hours Empiric antibiotic with IV Cipro/IV Flagyl (penicillin allergy noted) Follow blood culture surgery consult requested for acute abdomen Hypokalemia: Potassium level 3.3 earlier level 3.8 due to IV insulin drip 20 Meq KCL ordered IV Follow PRP every 4 hours next lab draw at 2000 Nephrology consult
[2018-01-02] MEDS ORDERED: SODIUM CHLORIDE 0.9% 1000ML 1,000 ML IV SCH (17:00)
--- NOTE | 2018-01-02 17:10 | CONSULTATION REPORT ---
DATE OF CONSULTATION: 01/02/2018 CHIEF ORTHOPEDIC COMPLAINT: Left shoulder pain. HISTORY OF PRESENT ILLNESS: The patient apparently fell while at home today. She is admitted for other medical problems as well. PHYSICAL EXAMINATION: Reveals her left arm to be in a sling. No gross deformity, no ecchymosis as of yet. IMPRESSION: X-ray examination reveals a mildly displaced proximal humerus fracture, likely 3-part. PLAN: Will order a CT scan to evaluate the amount of displacement and whether surgical intervention versus conservative management would be in the patient's best interest. Thank you for the consult.
[2018-01-02] MEDS ORDERED: HYDR-4715 PO (17:17)
[2018-01-02] MEDS: POTASSIUM CHLR 10 MEQ / WTR 10 MEQ in PREMIXED WATER 100 ML IV SCH ×2 (17:22→18:38)
--- NOTE | 2018-01-02 19:06 | Nephrology Consultation ---
Nephrology Consultation Date & Providers Date of Consultation: Jan 02, 2018. Primary Care Provider: Sixto Bella M.D. Referring Provider: Reason for Consultation ESRD History of Present Illness Mrs. Frieda Turner is a 67 year-old female with ESRD. CKD was attributed to microvascular disease and hypertensive nephrosclerosis. She has been on IHD since 10/04. She currently dialyzes at [facility] (MWF 3.5 hrs F -180NR 3K 2.5Ca EDW 48 kg). Her medical history is significant for AODM, HTN and possibly von Willebrand's disease. Mrs. Turner was last dialyzed yesterday. She tolerated the treatment well without complications. Frieda suffered a mechanical fall this morning. She states that she simply lost her balance. She denied chest pain, palpitations, lightheadedness, syncope or presyncope. She described significant pain in her left arm. She describes the pain as stabbing in her left shoulder and throughout her AVF. X-ray demonstrated a comminuted minimally displaced humerus neck fracture. Follow up CT has been requested by orthopedics but the injury was not immediately surgical. Frieda has been suffering from abdominal pain, nausea and anorexia since Saturday. She has been struggling with intermittent GI symptoms for several months. She describes intermittent pain as well as diarrhea. She had attributed some of the symptoms to phosphate binders in the past. TUMS and percocet have been used to manage the symptoms. Last August, she was hospitalized for acute appendicitis with rupture which was treated conservatively with IV antibiotics. Symptoms have been intermittent since this time. In the ED, CT abdomen and pelvis was suspicion for small bowel obstruction. NGT has been placed to suction. Surgery has been consulted. Frieda admits that she has not been taking her medications as prescribed. She has not taken home medications since Saturday. Frieda was hyperglycemic to 450 on admission. Insulin gtt was started. Blood glucose is currently down to 148. Potassium was 3.3 mmol/L and she was given 20 IV KCl. Past Medical/Surgical History Medical: # ESRD on HD # Chronic liver disease # HTN # PVD # DM # von Willebrand's disease # Perforated perforated appendicitis and small abscess 09/06 Surgical: # AVF Allergies Coded Allergies: Adhesives (Verified Allergy, Intermediate, RASH, 01/02/18) Amoxicillin (Verified Allergy, Intermediate, RASH, 01/02/18) Ampicillin (Verified Allergy, Intermediate, RASH, 01/02/18) Erythromycin (Verified Allergy, Intermediate, RASH, 01/02/18) Etodolac (Verified Allergy, Intermediate, RASH, 01/02/18) Penicillins (Verified Allergy, Intermediate, RASH, 01/02/18) Sulfa Antibiotics (Verified Allergy, Intermediate, RASH, 01/02/18) Aspirin (Verified Allergy, Mild, RASH, 01/02/18) Sevelamer (Verified Allergy, Mild, rash, 01/02/18) Inpatient Medications Current Inpatient Medications Medications (Trade) Dose Ordered Sig/Eduardo Route Start Time Stop Time Status Last Admin Dose Admin Miscellaneous Information (Consult Glycemic Management Pharmacy) 1 ea UD PRN N/A 01/02/18 13:09 02/01/18 13:08 Ondansetron HCl (Zofran Inj) 4 mg Q6H PRN IV 01/02/18 12:30 02/01/18 12:29 Insulin Human Regular 250 units/ Sodium Chloride 252.5 ml @ 0 mls/hr Q24H IV 01/02/18 13:15 02/01/18 13:14 01/02/18 17:09 1.1 MLS/HR Insulin Aspart (novoLOG ASPART) SLIDING SCALE HS SC 01/02/18 18:00 02/01/18 18:59 Glucose (Glucose 40% Gel) 15-30 GRAMS 15 GRAMS... UD PRN PO 01/02/18 13:15 02/01/18 13:14 Glucose (Glucose Chew Tab) 4-8 Tablets 4 Tabl... UD PRN PO 01/02/18 13:15 02/01/18 13:14 Dextrose (Dextrose 50% 50ML Syringe) 25-50ML OF 50% DW IV FOR... UD PRN IV 01/02/18 13:15 02/01/18 13:14 Glucagon (Glucagon Inj) 1 mg UD PRN SQ 01/02/18 13:15 02/01/18 13:14 Morphine Sulfate (MoRPHine SULFATE INJ) 1 mg Q4 PRN IV 01/02/18 13:15 01/16/18 13:14 01/02/18 16:15 1 MG Hydralazine HCl (HydrALAZINE INJ) 10 mg Q8 PRN IV. 01/02/18 13:15 02/01/18 13:14 Insulin Glargine (Lantus Solostar Pen) 5 units DAILY SC 01/02/18 13:15 02/01/18 13:14 01/02/18 13:24 5 UNITS Ciprofloxacin (Consult) 1 ea UD PRN N/A 01/02/18 13:15 02/01/18 13:14 Ciprofloxacin/ Dextrose 400 mg/ Prmx 200 ml @ 100 mls/hr Q24H IV 01/03/18 16:00 01/13/18 15:59 Metronidazole 500 mg/Prmx 100 ml @ 100 mls/hr Q8H IV 01/02/18 22:00 01/12/18 21:59 Miscellaneous Information 1 ea UD PRN N/A 01/02/18 13:30 02/01/18 13:29 Insulin Aspart (novoLOG ASPART) SLIDING SCALE Q4 SC 01/02/18 16:00 02/01/18 15:59 Future Hold Sodium Chloride 1,000 ml @ 75 mls/hr [id number] IV 01/02/18 17:00 01/03/18 06:19 01/02/18 17:02 75 MLS/HR Potassium Chloride 10 meq/ Prmx 100 ml @ 100 mls/hr Q1H IV 01/02/18 17:08 01/02/18 19:07 01/02/18 17:22 100 MLS/HR Family History No pertinent family history Social History Smoking Status: Never Smoker Smokeless Tobacco Use: No Alcohol Use: none Drug Use: none Marital Status: Housing Status: lives with significant other 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 Review of Systems A complete review of systems was performed. Pertinent positives are noted above. All other systems are negative. Physical Exam Date Time Temp Pulse Resp B/P (MAP) Pulse Ox O2 Delivery O2 Flow Rate FiO2 01/02/18 16:10 Room Air 01/02/18 14:45 36.6 78 18 118/60 (79) 93 01/02/18 14:11 84 18 117/71 93 01/02/18 13:29 85 01/02/18 13:26 93 Room Air 01/02/18 12:23 82 25 131/70 93 Room Air 01/02/18 10:59 79 24 126/63 96 Room Air 01/02/18 09:30 74 20 138/61 92 Room Air 01/02/18 08:25 74 01/02/18 07:14 36.3 76 17 123/79 97 Room Air General Appearance: no apparent distress, + thin Head: normocephalic, atraumatic Eyes: normal inspection, sclerae normal ENT: normal ENT inspection, pharynx normal Neck: supple, + JVD (JVP 10 cm) Respiratory/Chest: lungs clear, no respiratory distress, no accessory muscle use Cardiovascular: regular rate, rhythm, no gallop, no murmur Abdomen/GI: + distended, + pertinent finding (minimally tender) Extremities/Musculoskelatal: normal inspection, + pedal edema (L arm in sling, L BC AVF with thrill and bruit), + pertinent finding Neurologic/Psych: alert, normal mood/affect Laboratory Results Last 24 Hours Test 01/02/18 08:00 01/02/18 09:32 01/02/18 10:04 01/02/18 10:57 White Blood Count 15.50 K/uL Red Blood Count 3.83 M/uL Hemoglobin 11.4 g/dL Hematocrit 37.1 % Mean Corpuscular Volume 96.9 fL Mean Corpuscular Hemoglobin 29.8 pg Mean Corpuscular Hemoglobin Concent 30.7 g/dl Platelet Count 405 K/uL Mean Platelet Volume 9.4 fL Neutrophils (%) (Auto) 89.9 % Lymphocytes (%) (Auto) 3.9 % Monocytes (%) (Auto) 5.5 % Eosinophils (%) (Auto) 0.0 % Basophils (%) (Auto) 0.1 % Neutrophils # (Auto) 13.94 K/uL Lymphocytes # (Auto) 0.60 K/uL Monocytes # (Auto) 0.85 K/uL Eosinophils # (Auto) 0.00 K/uL Basophils # (Auto) 0.01 K/uL RDW Standard Deviation 56.0 fL RDW Coefficient of Variation 15.8 % Immature Granulocyte % (Auto) 0.6 % Immature Granulocyte # (Auto) 0.10 K/uL Prothrombin Time 12.5 SECONDS Prothromb Time International Ratio 1.2 Sodium Level 132 mmol/L Potassium Level 3.8 mmol/L Chloride Level 89 mmol/L Carbon Dioxide Level 33 mmol/L Anion Gap 10.0 mmol/L Blood Urea Nitrogen 31 mg/dl Creatinine 3.87 mg/dl Est Creatinine Clear Calc Drug Dose 10.5 ml/min Estimated GFR () 13.1 Estimated GFR (Non- 11.3 BUN/Creatinine Ratio 7.9 Random Glucose 448 mg/dl Calcium Level 9.1 mg/dl Phosphorus Level 6.3 mg/dl Magnesium Level 2.2 mg/dl Total Bilirubin 0.5 mg/dl Direct Bilirubin 0.3 mg/dl Aspartate Amino Transf (AST/SGOT) 16 U/L Alanine Aminotransferase (ALT/SGPT) 17 U/L Alkaline Phosphatase 246 U/L Total Protein 6.6 gm/dl Albumin 2.0 gm/dl Lipase 20 U/L Beta-Hydroxybutyric Acid 5.62 mg/dL Bedside Glucose 422 mg/dl 390 mg/dl 387 mg/dl Test 01/02/18 12:43 01/02/18 13:21 01/02/18 15:00 01/02/18 15:34 Bedside Glucose 308 mg/dl 286 mg/dl 261 mg/dl Sodium Level 134 mmol/L Potassium Level 3.3 mmol/L Chloride Level 92 mmol/L Carbon Dioxide Level 32 mmol/L Anion Gap 10.0 mmol/L Blood Urea Nitrogen 33 mg/dl Creatinine 4.09 mg/dl Est Creatinine Clear Calc Drug Dose 10.0 ml/min Estimated GFR () 12.2 Estimated GFR (Non- 10.5 BUN/Creatinine Ratio 8.1 Random Glucose 227 mg/dl Lactic Acid Level 2.7 mmol/L Calcium Level 8.8 mg/dl Test 01/02/18 15:42 01/02/18 15:54 01/02/18 16:34 01/02/18 17:05 Venous Blood pH 7.45 Bedside Glucose 207 mg/dl 166 mg/dl Arterial Blood pH 7.46 Arterial Blood Partial Pressure CO2 47 mmHg Arterial Blood Partial Pressure O2 68 mm/Hg Arterial Blood HCO3 33 mmol/L Arterial Blood Oxygen Saturation 91.7 % Arterial Blood Base Excess 8.0 mEq/L Arterial Blood Gas Delivery ROOM AIR Marcio Test POS Test 01/02/18 17:58 Bedside Glucose 148 mg/dl Impression (1) ESRD (end stage renal disease) on dialysis (2) Hyperparathyroidism due to ESRD on dialysis (3) Shoulder fracture, left (4) SBO (small bowel obstruction) (5) Anemia (6) Diabetes Frieda is a 67-year-old female with ESRD on HD. ESRD has been attributed to microvascular disease, hypertension and diabetes mellitus. Medical history is notable for chronic liver disease, hypertension, diabetes mellitus. The patient has hyperphosphatemia. She has not tolerated multiple phosphate binders in the past. She was treated conservatively for appendicitis in August. She has had chronic abdominal symptoms. Frieda admits to poor adherence to medications at home. She is being treated for possible SBO. NGT to suction and NPO. She had hyperglycemia and hypokalemia on admission. Glucose improving with insulin gtt. By nursing report the gtt is to be discontinued when blood glucose is less than 140. Frieda suffered a mechanical fall resulting in a comminuted minimally displaced humeral neck fracture. There is no current plan for surgery. Follow up CT scan is ordered. Pain is controlled currently. At this time, there is no current indication for dialysis. Frieda received some potassium replacement for hypokalemia. She is breathing comfortably. Volume status is appropriate. IV saline is infusing while patient is NPO with NG suction. Blood pressure is acceptable. Medications are appropriately dosed for renal function. Recommendations ESRD: -- Plan HD tomorrow per MWF schedule -- AVF is intact and uninjured from trauma -- Minimal mIVF -- Consider electrolyte neutral mIVF such as plasmalyte @ 80 ml/hr -- Continue Bumex as patient continues to make urine Anemia: -- Chronic and stable -- No need for KISHA Hypertension: -- BP acceptable at this time CKD/MBD: -- Hold PO4 binders while NPO
[2018-01-02 19:15] VITALS: BP 135/66; PULSE 86; TEMP 37; O2SAT 91
[2018-01-02] MEDS: INSULIN ASPART 100 UNITS/ML 3 ML PEN SC SCH (20:00)
--- NOTE | 2018-01-02 20:14 | SURGICAL CONSULTATION ---
DATE OF CONSULTATION: 01/02/2018 HISTORY OF PRESENT ILLNESS: I have been asked by Dr. Mendosa to see this 67-year-old female who is known to me from back in August of 2017 when she was admitted with a ruptured appendix, treated conservatively with antibiotics. Her symptoms resolved. She has had some intermittent discomfort in the right lower quadrant periodically since then. I saw her 1 week ago in the office at which time she was feeling well. Earlier today, she lost her balance and fell onto her left shoulder sustaining a fracture of her left shoulder. She also on Saturday, which 5 days ago, began to develop abdominal discomfort. It was intermittent. There was some crampy component and some sharp component. It seemed to be increasing in frequency and intensity. She had some abdominal distention and then began having nausea and vomiting. The discomfort is throughout her abdomen mildly, but more to the right side. She had been moving her bowels up until about 2 days ago. They were loose. She has not had a bowel movement or passed gas over the last 2 days. She has no fever or chills, however. She has not had dysuria or hematuria. She underwent a CT scan of the abdomen and pelvis that are reviewed in both the report and images. This shows fluid in the colon suggesting a diarrheal state with diffuse colonic wall thickening, most severe in the sigmoid and the area in rectum and moderate stool burden in the ascending colon. The cecum was poorly defined. Suggestion of a loculated fluid collection along the inferior posterior aspect of the cecum, poorly defined in the absence of contrast. There was significant proximal bowel dilatation which tapers smoothly upstream. The transition point appears to be located in the superior pelvis where there is fecal material contained within the small bowel. Distal small bowel was decompressed and maybe thick walled. Findings were suspicious for small-bowel obstruction. PAST MEDICAL HISTORY: Includes end-stage renal disease for which she is on dialysis. She also has type 1 diabetes and hypertension. She has a history of anemia, liver insufficiency, hyperparathyroidism of a renal origin and Von Willebrand disease. PAST SURGICAL HISTORY: Multiple procedures related to her vascular access for dialysis. MEDICATIONS AT HOME: Include PhosLo, Tums, furosemide, hydralazine, Lantus, Zestril, and Lopressor. ALLERGIES: ADHESIVES, AMOXICILLIN, AMPICILLIN, ERYTHROMYCIN, ETODOLAC, SULFA, ASPIRIN, SEVELAMER. SOCIAL HISTORY: She has never smoked nor does she chew tobacco. PHYSICAL EXAMINATION: GENERAL: She is a well-developed, well-nourished but thin female who appears in no acute distress with an EG tube in place. VITAL SIGNS: Blood pressure 118/60, heart rate 70, respirations 18, temperature 36.6, pulse oximetry is 93% on room air. HEENT: Reveals her sclerae are anicteric. Mucous membranes are moist. NECK: Supple. HEART: Regular. ABDOMEN: Has bowel sounds that are present. Some are high pitched and some are of normal pitch. They are of normal amount. Her abdomen is distended. There is tenderness mostly in the right side of her abdomen with the lower quadrant being more than the upper quadrant. LABORATORY DATA: WBC 15.5, H&H 11.4 and 37.1 with a platelet count of 405,000. Sodium 134, potassium 3.3, chloride 92, CO2 32, BUN 33, creatinine 4.09, and glucose 227. INR is 1.2. RADIOLOGY: As per HPI. ASSESSMENT AND PLAN: This patient has what appears to be a small-bowel obstruction which may be related to recurrent inflammatory process in the right lower quadrant. She has localized tenderness but not diffuse peritonitis. She has been placed on Cipro and Flagyl, which I agree with. I will follow her overnight to see if there is any improvement. She also has thickening of the colon and may have a colitis. There is no evidence for Clostridium difficile. I would continue with NG tube and conservative measures, and we will reevaluate tomorrow. GRACE
[2018-01-02 20:57] LABS: CALCIUM 8.6 mg/dl (8.5-10.1); CREATININE 4.1 mg/dl (0.60-1.20)
[2018-01-02] MEDS: METRONIDAZOLE 500 MG/ NSS IV SCH (22:41)
[2018-01-02 23:20] VITALS: BP 146/63; PULSE 89; TEMP 37.2; O2SAT 95
[2018-01-03] VITALS (25 sets, daily range): BP systolic 103–147; BP diastolic 49–69; PULSE 71–90; TEMP 36.2–37.1; O2SAT 93–98
[2018-01-03 00:29] LABS: CALCIUM 8.3 mg/dl (8.5-10.1); CREATININE 4.19 mg/dl (0.60-1.20); POTASSIUM 3.9 mmol/L (3.5-5.1)
[2018-01-03] MEDS: MoRPHine SULFATE 2 MG/ML CARP IV PRN ×5 (00:38→20:21)
[2018-01-03] MEDS: INSULIN ASPART 100 UNITS/ML 3 ML PEN SC SCH ×6 (03:58→20:00)
[2018-01-03 04:25] LABS: HEMATOCRIT 33.3 % (37-47); HEMOGLOBIN 10.5 g/dL (12.0-16.0); MEAN CELL VOLUME 95.7 fL (80-100); MEAN CORPUSCULAR HEMOGLOBIN 30.2 pg (25-34); MEAN CORPUSCULAR HGB CONC 31.5 g/dl (32-36); MEAN PLATELET VOLUME 8.8 fL (7.4-10.4); PLATELET COUNT 365 K/uL (130-400); RED CELL DISTRIBUTION WIDTH CV 15.7 % (11.5-14.5); RED CELL DISTRIBUTION WIDTH SD 54.8 fL (36.4-46.3); WHITE BLOOD COUNT 12.82 K/uL (4.8-10.8)
[2018-01-03 04:53] LABS: ALBUMIN 1.7 gm/dl (3.4-5.0); CALCIUM 8.6 mg/dl (8.5-10.1); CREATININE 4.44 mg/dl (0.60-1.20); POTASSIUM 3.9 mmol/L (3.5-5.1)
[2018-01-03] MEDS: METRONIDAZOLE 500 MG/ NSS IV SCH ×3 (05:35→21:48)
--- NOTE | 2018-01-03 07:39 | DIAGNOSTIC IMAGING REPORT ---
CT OF THE LEFT SHOULDER WITHOUT CONTRAST CLINICAL HISTORY: Left shoulder fracture. COMPARISON STUDY: Left shoulder radiographs January 02, 2018. TECHNIQUE: Axial images of the left shoulder were obtained without IV contrast. Sagittal and coronal reconstructions were viewed. FINDINGS: Note is made of an acute mildly displaced impacted left humeral neck fracture that extends into the humeral head and involves the greater tuberosity. No intra-articular bone fragment is present. There is severe osteoarthritis of the left glenohumeral joint. Alignment of the left acromioclavicular and glenohumeral joint remains anatomic. There is associated soft tissue swelling. Vascular stent is noted. Patency cannot be assessed on this unenhanced exam. A small left pleural effusion is noted with left basilar atelectasis. There is no left pneumothorax. IMPRESSION: 1. Acute mildly displaced impacted transverse left humeral neck fracture that extends into the humeral head and involves the greater tuberosity. 2. Severe osteoarthritis of the left glenohumeral joint. Anatomic alignment of the left acromioclavicular and glenohumeral joints. Electronically signed by: Samir Dougherty M.D. 01/03/2018 7:37 AM Dictated Date/Time: 01/03/2018 7:31 AM
[2018-01-03 07:48] LABS: HEMOGLOBIN A1C 7.5 % (4.5-5.6)
[2018-01-03] MEDS: INSULIN GLARGINE SOLOSTAR 100 UNITS/ML 3 ML PEN SC SCH (08:16)
--- NOTE | 2018-01-03 09:13 | Clinical Documentation Query ---
CLINICAL DOCUMENTATION QUERY 67 yo female with history of ESRD admitted with fracture of left humerus. Catheterized urinalysis shows 1+ bacteria, > 30 WBCs, and small amount leukocytes. In your clinical opinion is this patient being managed for: ( x ) Possible urinary tract infection, POA ( ) Not Agree ( ) Other explanation of clinical findings (Please Explain) ( ) Unable to determine (Please Define) ( ) Need to Discuss The medical record reflects the following clinical findings, treatment, and risk factors. Clinical Indicators: As above Treatment: IV hydration, Cipro IV Risk Factors: Female, ESRD, CKD Please clarify and document your clinical opinion in the progress notes and discharge summary. Terms such as "probable", "suspected", "likely", "questionable", "possible", or "still to be ruled out" are acceptable. IF IN AGREEMENT, YOU MUST DOCUMENT ABOVE DIAGNOSTIC STATEMENT IN DAILY PROGRESS NOTES AND DISCHARGE SUMMARY. This document is not part of the patient's record. Thank You, Nettie Gardner RN [phone]
[2018-01-03 09:34] LABS: CALCIUM 8.8 mg/dl (8.5-10.1); CREATININE 4.66 mg/dl (0.60-1.20); POTASSIUM 3.9 mmol/L (3.5-5.1)
--- NOTE | 2018-01-03 12:15 | Nephrology Progress Note ---
Nephrology Progress Note Date of Service Jan 03, 2018. Chief Complaint ESRD Subjective No acute events overnight. Frieda was seen and evaluated this morning during hemodialysis. She notes improving abdominal symptoms. She ins breathing comfortably. Pain control is reasonable. She was tolerating hemodialysis well. Qb and BP are acceptable. Review of Systems A complete review of systems was performed. Pertinent positives are noted above. All other systems are negative. Vital Signs Last 8 Hrs Date Time Temp Pulse Resp B/P (MAP) Pulse Ox O2 Delivery O2 Flow Rate FiO2 01/03/18 12:00 71 128/49 01/03/18 11:45 78 114/57 01/03/18 11:30 80 118/60 01/03/18 11:15 80 112/57 01/03/18 11:00 79 114/57 01/03/18 10:45 81 110/51 01/03/18 10:30 81 108/58 01/03/18 10:15 82 103/49 01/03/18 10:00 80 111/62 01/03/18 09:45 83 112/61 01/03/18 09:30 82 119/63 01/03/18 09:15 81 127/61 01/03/18 09:08 84 143/69 01/03/18 07:59 36.9 84 18 142/67 (92) 98 2.0 01/03/18 04:22 36.6 84 16 147/66 (93) 93 Nasal Cannula 2.0 Last Recorded Weight Weight (Kilograms): 51.000 Physical Exam General Appearance: no apparent distress, + thin Head: normocephalic, atraumatic Eyes: normal inspection, sclerae normal ENT: normal ENT inspection, pharynx normal Neck: supple, no JVD Respiratory/Chest: lungs clear, no respiratory distress, no accessory muscle use Cardiovascular: regular rate, rhythm, no gallop Back: no CVA tenderness Abdomen/GI: non tender, soft Extremities/Musculoskelatal: normal inspection, no pedal edema Neurologic/Psych: alert, normal mood/affect Family History No pertinent family history Social History Smokeless Tobacco Use: No Alcohol Use: none Drug Use: none Marital Status: Housing Status: lives with significant other 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 Laboratory Results Past 24 Hours 01/03/18 04:12 01/02/18 15:34 01/02/18 20:07 01/02/18 23:50 01/03/18 04:12 01/03/18 08:37 Test 01/02/18 12:43 01/02/18 13:21 01/02/18 15:00 01/02/18 15:34 Bedside Glucose 308 mg/dl (70-90) 286 mg/dl (70-90) 261 mg/dl (70-90) Anion Gap 10.0 mmol/L (3-11) Est Creatinine Clear Calc Drug Dose 10.0 ml/min Estimated GFR () 12.2 Estimated GFR (Non- 10.5 BUN/Creatinine Ratio 8.1 (10-20) Lactic Acid Level 2.7 mmol/L (0.4-2.0) Calcium Level 8.8 mg/dl (8.5-10.1) Test 01/02/18 15:42 01/02/18 15:54 01/02/18 16:34 01/02/18 17:05 Venous Blood pH 7.45 (7.36-7.41) Bedside Glucose 207 mg/dl (70-90) 166 mg/dl (70-90) Arterial Blood pH 7.46 (7.35-7.45) Arterial Blood Partial Pressure CO2 47 mmHg (35-46) Arterial Blood Partial Pressure O2 68 mm/Hg (80-95) Arterial Blood HCO3 33 mmol/L (19-24) Arterial Blood Oxygen Saturation 91.7 % (90-95) Arterial Blood Base Excess 8.0 mEq/L (-9-1.8) Arterial Blood Gas Delivery ROOM AIR Marcio Test POS (POS) Test 01/02/18 17:58 01/02/18 19:05 01/02/18 20:07 01/02/18 23:50 Bedside Glucose 148 mg/dl (70-90) 145 mg/dl (70-90) Venous Blood pH 7.45 (7.36-7.41) 7.45 (7.36-7.41) Anion Gap 9.0 mmol/L (3-11) 10.0 mmol/L (3-11) Est Creatinine Clear Calc Drug Dose 10.0 ml/min 9.7 ml/min Estimated GFR () 12.2 11.9 Estimated GFR (Non- 10.5 10.2 BUN/Creatinine Ratio 8.8 (10-20) 9.0 (10-20) Lactic Acid Level 1.6 mmol/L (0.4-2.0) 0.9 mmol/L (0.4-2.0) Calcium Level 8.6 mg/dl (8.5-10.1) 8.3 mg/dl (8.5-10.1) Test 01/03/18 00:14 01/03/18 03:57 01/03/18 04:12 01/03/18 08:05 Bedside Glucose 155 mg/dl (70-90) 151 mg/dl (70-90) Red Blood Count 3.48 M/uL (4.2-5.4) Mean Corpuscular Volume 95.7 fL (80-100) Mean Corpuscular Hemoglobin 30.2 pg (25-34) Mean Corpuscular Hemoglobin Concent 31.5 g/dl (32-36) RDW Standard Deviation 54.8 fL (36.4-46.3) RDW Coefficient of Variation 15.7 % (11.5-14.5) Mean Platelet Volume 8.8 fL (7.4-10.4) Venous Blood pH 7.43 (7.36-7.41) Anion Gap 8.0 mmol/L (3-11) Est Creatinine Clear Calc Drug Dose 9.2 ml/min Estimated GFR () 11.1 Estimated GFR (Non- 9.5 BUN/Creatinine Ratio 8.9 (10-20) Estimated Average Glucose 169 mg/dl Hemoglobin A1c 7.5 % (4.5-5.6) Lactic Acid Level 0.9 mmol/L (0.4-2.0) Calcium Level 8.6 mg/dl (8.5-10.1) Total Bilirubin 0.6 mg/dl (0.2-1) Direct Bilirubin 0.1 mg/dl (0-0.2) Aspartate Amino Transf (AST/SGOT) 13 U/L (15-37) Alanine Aminotransferase (ALT/SGPT) 14 U/L (12-78) Alkaline Phosphatase 192 U/L (45-117) Total Protein 6.0 gm/dl (6.4-8.2) Albumin 1.7 gm/dl (3.4-5.0) Globulin 4.3 gm/dl (2.5-4.0) Albumin/Globulin Ratio 0.4 (0.9-2) Beta-Hydroxybutyric Acid 13.14 mg/dL (0.2-2.81) Urine Color YELLOW Urine Appearance CLOUDY (CLEAR) Urine pH 7.5 (4.5-7.5) Urine Specific [place] 1.017 (1.000-1.030) Urine Protein 2+ (NEG) Urine Glucose (UA) 3+ (NEG) Urine Ketones NEG (NEG) Urine Occult Blood NEG (NEG) Urine Nitrite NEG (NEG) Urine Bilirubin NEG (NEG) Urine Urobilinogen NEG (NEG) Urine Leukocyte Esterase SMALL (NEG) Urine WBC (Auto) >30 /hpf (0-5) Urine RBC (Auto) 0-4 /hpf (0-4) Urine Hyaline Casts (Auto) 10-30 /lpf (0-5) Urine Epithelial Cells (Auto) >30 /lpf (0-5) Urine Bacteria (Auto) 1+ (NEG) Urine Pathogenic Casts /lpf (0) Test 01/03/18 08:09 01/03/18 08:37 01/03/18 12:00 Bedside Glucose 151 mg/dl (70-90) Venous Blood pH 7.41 (7.36-7.41) Anion Gap 11.0 mmol/L (3-11) Est Creatinine Clear Calc Drug Dose 9.1 ml/min Estimated GFR () 10.4 Estimated GFR (Non- 9.0 BUN/Creatinine Ratio 9.1 (10-20) Calcium Level 8.8 mg/dl (8.5-10.1) Allergies Coded Allergies: Adhesives (Verified Allergy, Intermediate, RASH, 01/02/18) Amoxicillin (Verified Allergy, Intermediate, RASH, 01/02/18) Ampicillin (Verified Allergy, Intermediate, RASH, 01/02/18) Erythromycin (Verified Allergy, Intermediate, RASH, 01/02/18) Etodolac (Verified Allergy, Intermediate, RASH, 01/02/18) Penicillins (Verified Allergy, Intermediate, RASH, 01/02/18) Sulfa Antibiotics (Verified Allergy, Intermediate, RASH, 01/02/18) Aspirin (Verified Allergy, Mild, RASH, 01/02/18) Sevelamer (Verified Allergy, Mild, rash, 01/02/18) Medications Current Inpatient Medications Medications (Trade) Dose Ordered Sig/Eduardo Route Start Time Stop Time Status Last Admin Dose Admin Miscellaneous Information (Consult Glycemic Management Pharmacy) 1 ea UD PRN N/A 01/02/18 13:09 02/01/18 13:08 Ondansetron HCl (Zofran Inj) 4 mg Q6H PRN IV 01/02/18 12:30 02/01/18 12:29 01/03/18 08:58 4 MG Glucose (Glucose 40% Gel) 15-30 GRAMS 15 GRAMS... UD PRN PO 01/02/18 13:15 02/01/18 13:14 Glucose (Glucose Chew Tab) 4-8 Tablets 4 Tabl... UD PRN PO 01/02/18 13:15 02/01/18 13:14 Dextrose (Dextrose 50% 50ML Syringe) 25-50ML OF 50% DW IV FOR... UD PRN IV 01/02/18 13:15 02/01/18 13:14 Glucagon (Glucagon Inj) 1 mg UD PRN SQ 01/02/18 13:15 02/01/18 13:14 Morphine Sulfate (MoRPHine SULFATE INJ) 1 mg Q4 PRN IV 01/02/18 13:15 01/16/18 13:14 01/03/18 09:00 1 MG Hydralazine HCl (HydrALAZINE INJ) 10 mg Q8 PRN IV. 01/02/18 13:15 02/01/18 13:14 Insulin Glargine (Lantus Solostar Pen) 5 units DAILY SC 01/02/18 13:15 02/01/18 13:14 01/03/18 08:16 5 UNITS Ciprofloxacin (Consult) 1 ea UD PRN N/A 01/02/18 13:15 02/01/18 13:14 Ciprofloxacin/ Dextrose 400 mg/ Prmx 200 ml @ 100 mls/hr Q24H IV 01/03/18 16:00 01/13/18 15:59 Metronidazole 500 mg/Prmx 100 ml @ 100 mls/hr Q8H IV 01/02/18 22:00 01/12/18 21:59 01/03/18 05:35 100 MLS/HR Miscellaneous Information 1 ea UD PRN N/A 01/02/18 13:30 02/01/18 13:29 Insulin Aspart (novoLOG ASPART) SLIDING SCALE Q4 SC 01/02/18 16:00 02/01/18 15:59 Future hold Impression (1) ESRD (end stage renal disease) on dialysis (2) Hyperparathyroidism due to ESRD on dialysis (3) Shoulder fracture, left (4) SBO (small bowel obstruction) (5) Anemia (6) Diabetes Frieda is a 67-year-old female with ESRD on HD. ESRD has been attributed to microvascular disease, hypertension and diabetes mellitus. Medical history is notable for chronic liver disease, hypertension, diabetes mellitus. The patient has hyperphosphatemia an difficulty tolerating phosphate binders in the past. She was treated conservatively for appendicitis in August. She has had chronic abdominal symptoms. Frieda admits to poor adherence to medications at home. She is being treated for possible SBO. NGT to suction and NPO. She had hyperglycemia and hypokalemia on admission. Glucose improved with insulin gtt. Frieda suffered a mechanical fall resulting in a comminuted minimally displaced humeral neck fracture. There is no current plan for surgery. Follow up CT scan is ordered. Pain is controlled currently. Blood pressure is acceptable. Medications are appropriately dosed for renal function. Recommendations ESRD: -- Patient was seen and evaluated during hemodialysis. She is tolerating treatment well. UF goal 2.5 L. -- AVF with adequate Qb. -- Continue Bumex as patient continues to make urine. Anemia: -- Chronic and stable -- No need for KISHA Hypertension: -- BP acceptable at this time CKD/MBD: -- Hold PO4 binders while NPO
--- NOTE | 2018-01-03 12:34 | Pharmacy Progress Note ---
Glycemic Control Progress Note Date of Service Jan 03, 2018. Scope Glycemic Pharmacist consulted for glycemic control to write orders per [facility] inpatient glycemic control protocol. Objective Accuchecks BSG (last 24hrs): Test 01/02/18 12:43 01/02/18 13:21 01/02/18 15:00 01/02/18 15:34 Bedside Glucose 308 mg/dl (70-90) 286 mg/dl (70-90) 261 mg/dl (70-90) Random Glucose 227 mg/dl (70-99) Test 01/02/18 15:54 01/02/18 17:05 01/02/18 17:58 01/02/18 19:05 Bedside Glucose 207 mg/dl (70-90) 166 mg/dl (70-90) 148 mg/dl (70-90) 145 mg/dl (70-90) Test 01/02/18 20:07 01/02/18 23:50 01/03/18 00:14 01/03/18 03:57 Random Glucose 142 mg/dl (70-99) 166 mg/dl (70-99) Bedside Glucose 155 mg/dl (70-90) 151 mg/dl (70-90) Test 01/03/18 04:12 01/03/18 08:09 01/03/18 08:37 01/03/18 12:00 Random Glucose 176 mg/dl (70-99) 170 mg/dl (70-99) Bedside Glucose 151 mg/dl (70-90) HbA1c: Test 01/03/18 04:12 Hemoglobin A1c 7.5 % (4.5-5.6) H Recent Pertinent Medications The patient is currently receiving: * Basal insulin: Lantus 5 units daily * Correctional Insulin: Novolog Correction per scale ACHS Goal Range: Low 120 mg/dL - High 160 mg/dL Correction Factor: 35 mg/dL/unit * Prandial insulin: Per carb ratio of 1 unit per 10 grams CHO consumed Outpatient Anti-Diabetic Meds Basal Insulin Bolus Insulin Assessment & Plan ASSESSMENT: 01/02/18 * Ms Turner is a type 1 diabetic female admitted with a L shoulder injury. * Significant PMH includes ESRD on dialysis, recent appendix rupture and ?bowel obstruction * Patient was quite hyperglycemic on admission, but labs do not indicate DKA. * As patient is Type 1, with reported labile BSGs, will initially resolve hyperglycemia with insulin infusion and then transition to SQ basal/bolus regimen. 01/03/18 * Possible procedure today, still NPO status - will keep Lantus at 80% reduced from home dose (for type 1 diabetic) * No Novolog has been required since insulin drip was discontinued yesterday with BSG's ranging 145-151 mg/dl and patient requires very low doses of Lantus - no change needed at this time PLAN FOR INPATIENT GLYCEMIC CONTROL: * Basal insulin: Lantus SQ qAM * 5 units for NPO status *or* BSG less than 90 mg/dL * 7 units for BSG 90 mg/dL or greater *and* ordered diet * Bolus insulin * NovoLog per scale ACHS or Q6hrs while NPO * Goal Range: Low 120 mg/dL - High 160 mg/dL * Correction Factor: 35 mg/dL/unit * Nutritional / Prandial insulin per carb ratio of 1 unit per 10 grams CHO consumed * Please note that the plan above was derived based on current level of insulin resistance and hospital stress. These recommendations are appropriate for inpatient admission only. Plan of care upon discharge will need to be reassessed to avoid potential outpatient hypo/hyperglycemia. Thank you.
--- NOTE | 2018-01-03 12:51 | ORTHOPEDIC PROGRESS NOTE ---
DATE: 01/03/2018 HISTORY OF PRESENT ILLNESS: The patient is a 67-year-old white female who was admitted on the when she came to the Emergency Room after falling. She lost her balance and fell on her left shoulder. She had also been having abdominal pain during that time and then prior to the fall that was worsening and after multiple radiologic studies, it was found that she has small-bowel obstruction and also a left proximal humerus fracture. Dr. Rosenberg saw the patient yesterday in consult and a CT scan was ordered to rule out the need for possible surgical intervention. The CT scan was reviewed by myself and by Dr. Rosenberg and at this point in time, the patient can be treated nonoperatively in a sling, nonweightbearing left upper extremity. The patient is currently in a dialysis unit and she is resting comfortably and the pain appears to be controlled. We discussed the fact that she would not need surgery for this and it would heal over time, and she would have to continue to use this arm sling. Currently, the sling is in place and she has that loosened slightly for comfort, during dialysis. No obvious gross motor or sensory loss at this time. ASSESSMENT: Left proximal humerus fracture. PLAN: As noted above, she can be treated nonoperatively in a sling and the sling must remain on at all times. She may loosen it to help with this discomfort in the left elbow and/or sometimes she developed some numbness and tingling because of positioning. She must be nonweightbearing on the left upper extremity, and she can follow up with Dr. Rosenberg in the office in 10-14 days. Ortho will sign off at this time. Please call with any questions. GRACE
[2018-01-03] MEDS ORDERED: VANCOMYCIN CONSULT ACTIVE PRN (13:30)
[2018-01-03] MEDS ORDERED: VANCOMYCIN IV 1,000 MG in SODIUM CHLORIDE 0.9% 250ML 250 ML IV SCH (14:00)
--- NOTE | 2018-01-03 14:37 | DIAGNOSTIC IMAGING REPORT ---
AP CHEST WITH ABDOMINAL SERIES CLINICAL HISTORY: Small bowel obstruction. FINDINGS: An AP chest radiograph is compared to study dated 11/29/2017 and correlated with chest CT dated 12/19/2017. The examination is degraded by patient rotation. The heart is enlarged. The pulmonary vasculature is noncongested. Chronic interstitial thickening is similar to previous. Airspace consolidation is seen at the left lung base. Small pleural effusions are identified. No pneumothorax is seen. The skeletal structures are osteopenic. Fracture is noted in the left humerus. Vascular stents are seen in the left axilla. Supine and erect abdominal radiographs are correlated with abdominal CT dated 01/02/2018. An enteric tube projects over the stomach. There is evidence of persistent small bowel obstruction. Small bowel loops measure up to 4 cm in diameter. Residual enteric contrast is noted in the right colon. No evidence of intraperitoneal free air is seen. Diffuse pancreatic calcifications are consistent with chronic pancreatitis. Calcified gallstones are seen in the right upper quadrant. Phleboliths are seen in the pelvis. Advanced arthritic change is seen in the hips, right greater than left. IMPRESSION: 1. Cardiomegaly without radiographic evidence of congestive failure. 2. There is developing airspace consolidation at the left lung base. Although this could represent atelectasis, correlate clinically for evidence of pneumonia/aspiration pneumonitis. 3. Small pleural effusions. 4. An enteric tube projects over the stomach. 5. There is evidence of persistent small bowel obstruction. 6. Calcified gallstones and pancreatic calcifications are similar to previous. 7. Left humeral fracture. Electronically signed by: Frankie Beckett M.D. 01/03/2018 2:36 PM Dictated Date/Time: 01/03/2018 2:31 PM
--- NOTE | 2018-01-03 16:14 | Surgery Progress Note ---
Surgery Progress Note Date of Service Jan 03, 2018. Subjective + bowel movement (Yesterday) Less pain today Objective Vital Signs: Date Time Temp Pulse Resp B/P (MAP) Pulse Ox O2 Delivery O2 Flow Rate FiO2 01/03/18 15:18 36.9 88 18 131/65 (87) 97 01/03/18 13:00 81 108/52 01/03/18 12:45 72 117/57 01/03/18 12:30 81 116/57 01/03/18 12:15 78 115/58 01/03/18 12:00 71 128/49 01/03/18 11:45 78 114/57 01/03/18 11:30 80 118/60 01/03/18 11:15 80 112/57 01/03/18 11:00 79 114/57 01/03/18 10:45 81 110/51 01/03/18 10:30 81 108/58 01/03/18 10:15 82 103/49 01/03/18 10:00 80 111/62 01/03/18 09:45 83 112/61 01/03/18 09:30 82 119/63 01/03/18 09:15 81 127/61 01/03/18 09:08 84 143/69 01/03/18 08:00 98 Nasal Cannula 2.0 01/03/18 07:59 36.9 84 18 142/67 (92) 98 2.0 01/03/18 04:22 36.6 84 16 147/66 (93) 93 Nasal Cannula 2.0 01/03/18 04:00 Nasal Cannula 2.0 01/03/18 00:00 Nasal Cannula 2.0 01/02/18 23:20 37.2 89 16 146/63 (90) 95 Nasal Cannula 2.0 01/02/18 20:15 Room Air 01/02/18 19:15 37.0 86 18 135/66 (89) 91 Room Air 01/02/18 16:10 Room Air Abdomen: non distended, soft, + tenderness (Remains tender in RLQ) Laboratory Results: Results Past 24 Hours Test 01/02/18 15:54 01/02/18 16:34 01/02/18 17:05 01/02/18 17:58 Range/Units Bedside Glucose 207 166 148 70-90 mg/dl Arterial Blood pH 7.46 7.35-7.45 Arterial Blood Partial Pressure CO2 47 35-46 mmHg Arterial Blood Partial Pressure O2 68 80-95 mm/Hg Arterial Blood HCO3 33 19-24 mmol/L Arterial Blood Oxygen Saturation 91.7 90-95 % Arterial Blood Base Excess 8.0 -9-1.8 mEq/L Arterial Blood Gas Delivery ROOM AIR Marcio Test POS POS Test 01/02/18 19:05 01/02/18 20:07 01/02/18 23:50 01/03/18 00:14 Range/Units Bedside Glucose 145 155 70-90 mg/dl Venous Blood pH 7.45 7.45 7.36-7.41 Sodium Level 132 135 136-145 mmol/L Potassium Level 4.0 3.9 3.5-5.1 mmol/L Chloride Level 92 94 98-107 mmol/L Carbon Dioxide Level 31 31 21-32 mmol/L Anion Gap 9.0 10.0 3-11 mmol/L Blood Urea Nitrogen 36 38 7-18 mg/dl Creatinine 4.10 4.19 0.60-1.20 mg/dl Est Creatinine Clear Calc Drug Dose 10.0 9.7 ml/min Estimated GFR () 12.2 11.9 Estimated GFR (Non- 10.5 10.2 BUN/Creatinine Ratio 8.8 9.0 10-20 Random Glucose 142 166 70-99 mg/dl Lactic Acid Level 1.6 0.9 0.4-2.0 mmol/L Calcium Level 8.6 8.3 8.5-10.1 mg/dl Test 01/03/18 03:57 01/03/18 04:12 01/03/18 08:05 01/03/18 08:09 Range/Units Bedside Glucose 151 151 70-90 mg/dl White Blood Count 12.82 4.8-10.8 K/uL Red Blood Count 3.48 4.2-5.4 M/uL Hemoglobin 10.5 12.0-16.0 g/dL Hematocrit 33.3 37-47 % Mean Corpuscular Volume 95.7 80-100 fL Mean Corpuscular Hemoglobin 30.2 25-34 pg Mean Corpuscular Hemoglobin Concent 31.5 32-36 g/dl RDW Standard Deviation 54.8 36.4-46.3 fL RDW Coefficient of Variation 15.7 11.5-14.5 % Platelet Count 365 130-400 K/uL Mean Platelet Volume 8.8 7.4-10.4 fL Venous Blood pH 7.43 7.36-7.41 Sodium Level 133 136-145 mmol/L Potassium Level 3.9 3.5-5.1 mmol/L Chloride Level 94 98-107 mmol/L Carbon Dioxide Level 31 21-32 mmol/L Anion Gap 8.0 3-11 mmol/L Blood Urea Nitrogen 40 7-18 mg/dl Creatinine 4.44 0.60-1.20 mg/dl Est Creatinine Clear Calc Drug Dose 9.2 ml/min Estimated GFR () 11.1 Estimated GFR (Non- 9.5 BUN/Creatinine Ratio 8.9 10-20 Random Glucose 176 70-99 mg/dl Estimated Average Glucose 169 mg/dl Hemoglobin A1c 7.5 4.5-5.6 % Lactic Acid Level 0.9 0.4-2.0 mmol/L Calcium Level 8.6 8.5-10.1 mg/dl Total Bilirubin 0.6 0.2-1 mg/dl Direct Bilirubin 0.1 0-0.2 mg/dl Aspartate Amino Transf (AST/SGOT) 13 15-37 U/L Alanine Aminotransferase (ALT/SGPT) 14 12-78 U/L Alkaline Phosphatase 192 45-117 U/L Total Protein 6.0 6.4-8.2 gm/dl Albumin 1.7 3.4-5.0 gm/dl Globulin 4.3 2.5-4.0 gm/dl Albumin/Globulin Ratio 0.4 0.9-2 Beta-Hydroxybutyric Acid 13.14 0.2-2.81 mg/dL Urine Color YELLOW Urine Appearance CLOUDY CLEAR Urine pH 7.5 4.5-7.5 Urine Specific [place] 1.017 1.000-1.030 Urine Protein 2+ NEG Urine Glucose (UA) 3+ NEG Urine Ketones NEG NEG Urine Occult Blood NEG NEG Urine Nitrite NEG NEG Urine Bilirubin NEG NEG Urine Urobilinogen NEG NEG Urine Leukocyte Esterase SMALL NEG Urine WBC (Auto) >30 0-5 /hpf Urine RBC (Auto) 0-4 0-4 /hpf Urine Hyaline Casts (Auto) 10-30 0-5 /lpf Urine Epithelial Cells (Auto) >30 0-5 /lpf Urine Bacteria (Auto) 1+ NEG Urine Pathogenic Casts 0 /lpf Test 3/16/18 08:37 01/03/18 12:00 01/03/18 14:59 Range/Units Venous Blood pH 7.41 7.36-7.41 Sodium Level 134 136-145 mmol/L Potassium Level 3.9 3.5-5.1 mmol/L Chloride Level 94 98-107 mmol/L Carbon Dioxide Level 29 21-32 mmol/L Anion Gap 11.0 3-11 mmol/L Blood Urea Nitrogen 42 7-18 mg/dl Creatinine 4.66 0.60-1.20 mg/dl Est Creatinine Clear Calc Drug Dose 9.1 ml/min Estimated GFR () 10.4 Estimated GFR (Non- 9.0 BUN/Creatinine Ratio 9.1 10-20 Random Glucose 170 70-99 mg/dl Calcium Level 8.8 8.5-10.1 mg/dl Bedside Glucose 94 70-90 mg/dl Assessment & Plan SBO with RLQ inflammatory process WBC decreased Continue conservative management Dialysis as per nephrology New left humeral fracture as per ortho
[2018-01-03] MEDS: CIPROFLOXACIN 400MG / D5W IV SCH (16:21)
[2018-01-03 17:46] LABS: CALCIUM 8.1 mg/dl (8.5-10.1); CREATININE 2.28 mg/dl (0.60-1.20); POTASSIUM 3.4 mmol/L (3.5-5.1)
--- NOTE | 2018-01-03 18:22 | Progress Note ---
Internal Med Progress Note Date of Service: Jan 03, 2018. Provider Documentation: SUBJECTIVE: complains of abdominal pain has left shoulder pain no nausea afebrile no chest pain or sob afebrile OBJECTIVE: Vital Signs-as noted below Exam: General-alert and oriented. Not in distress ENT-Normal hearing Neck-no neck masses Lungs-cta b/l no wheezing or crackles Heart-S1 and S2 heard regular rate and rhythm no murmurs Abdomen-Soft bowel sounds absent diffuse tender mild distension Extremities-no edema no erythema Neuro-alert and awake moves extremities Lab data as noted below. ASSESSMENT & PLAN: This is a 67yo F with a PMH of ESRD on dialysis, Type 1 DM, HTN and other medical problems listed below who presents after a fall this AM and was found to have a left humeral neck fracture, SBO and hyperglycemia. Small bowel obstruction: presented with Abd pain, nausea x 6 days. Last BM 2 days ago H/o medically managed appendicitis with rupture in Aug 2017 possible sepsis? with elevated wbc, lactic acid 2.7, possible peritonitis or abscess on ct scan and sbo on ct scan Has been following with Dr. Ryan of general surgery Ng tube place started on Cipro and Flagyl iv fluids lactic acid normalized NPO surgery on board and appreciate inputs L Humeral neck fracture: Fell on shoulder XR with comminuted minimally displaced and impacted fracture of the neck of the attending addendum left humerus Shoulder immobilized in splint -Ortho consulted and recommends conservative management Hyperglycemia 2/2 DM I: Non-compliant with insulin, infection hyperglycemia on presentation received 10 units of iv insulin currently on lantus and iss appreciate pharmacy help. ESRD on dialysis: Dialysis MWF Follows with [facility] nephro Usually takes 80mg PO lasix on non-dialysis days which id held as patient is npo nephro consulted and appreciate inputs HTN: Holding home agents Hydralazine 10mg IV Q8 for SBP >160 DVT Ppx: SCDs for now. Code status: FULL per admissions. PCP: Jena Dispo:to be determined Vital Signs: Date Time Temp Pulse Resp B/P (MAP) Pulse Ox O2 Delivery O2 Flow Rate FiO2 01/03/18 16:00 Nasal Cannula 2.0 01/03/18 15:18 36.9 88 18 131/65 (87) 97 01/03/18 13:35 36.6 78 125/62 (83) 01/03/18 13:00 81 108/52 01/03/18 12:45 72 117/57 01/03/18 12:30 81 116/57 01/03/18 12:15 78 115/58 01/03/18 12:00 71 128/49 01/03/18 11:45 78 114/57 01/03/18 11:30 80 118/60 01/03/18 11:15 80 112/57 01/03/18 11:00 79 114/57 01/03/18 10:45 81 110/51 01/03/18 10:30 81 108/58 01/03/18 10:15 82 103/49 01/03/18 10:00 80 111/62 01/03/18 09:45 83 112/61 01/03/18 09:30 82 119/63 01/03/18 09:15 81 127/61 01/03/18 09:08 84 143/69 01/03/18 09:00 37.1 87 132/67 (88) 01/03/18 08:00 98 Nasal Cannula 2.0 01/03/18 07:59 36.9 84 18 142/67 (92) 98 2.0 01/03/18 04:22 36.6 84 16 147/66 (93) 93 Nasal Cannula 2.0 01/03/18 04:00 Nasal Cannula 2.0 01/03/18 00:00 Nasal Cannula 2.0 01/02/18 23:20 37.2 89 16 146/63 (90) 95 Nasal Cannula 2.0 01/02/18 20:15 Room Air 01/02/18 19:15 37.0 86 18 135/66 (89) 91 Room Air Lab Results: Results Past 24 Hours Test 01/02/18 19:05 01/02/18 20:07 01/02/18 23:50 01/03/18 00:14 Range/Units Bedside Glucose 145 155 70-90 mg/dl Venous Blood pH 7.45 7.45 7.36-7.41 Sodium Level 132 135 136-145 mmol/L Potassium Level 4.0 3.9 3.5-5.1 mmol/L Chloride Level 92 94 98-107 mmol/L Carbon Dioxide Level 31 31 21-32 mmol/L Anion Gap 9.0 10.0 3-11 mmol/L Blood Urea Nitrogen 36 38 7-18 mg/dl Creatinine 4.10 4.19 0.60-1.20 mg/dl Est Creatinine Clear Calc Drug Dose 10.0 9.7 ml/min Estimated GFR () 12.2 11.9 Estimated GFR (Non- 10.5 10.2 BUN/Creatinine Ratio 8.8 9.0 10-20 Random Glucose 142 166 70-99 mg/dl Lactic Acid Level 1.6 0.9 0.4-2.0 mmol/L Calcium Level 8.6 8.3 8.5-10.1 mg/dl Test 01/03/18 03:57 01/03/18 04:12 01/03/18 08:05 01/03/18 08:09 Range/Units Bedside Glucose 151 151 70-90 mg/dl White Blood Count 12.82 4.8-10.8 K/uL Red Blood Count 3.48 4.2-5.4 M/uL Hemoglobin 10.5 12.0-16.0 g/dL Hematocrit 33.3 37-47 % Mean Corpuscular Volume 95.7 80-100 fL Mean Corpuscular Hemoglobin 30.2 25-34 pg Mean Corpuscular Hemoglobin Concent 31.5 32-36 g/dl RDW Standard Deviation 54.8 36.4-46.3 fL RDW Coefficient of Variation 15.7 11.5-14.5 % Platelet Count 365 130-400 K/uL Mean Platelet Volume 8.8 7.4-10.4 fL Venous Blood pH 7.43 7.36-7.41 Sodium Level 133 136-145 mmol/L Potassium Level 3.9 3.5-5.1 mmol/L Chloride Level 94 98-107 mmol/L Carbon Dioxide Level 31 21-32 mmol/L Anion Gap 8.0 3-11 mmol/L Blood Urea Nitrogen 40 7-18 mg/dl Creatinine 4.44 0.60-1.20 mg/dl Est Creatinine Clear Calc Drug Dose 9.2 ml/min Estimated GFR () 11.1 Estimated GFR (Non- 9.5 BUN/Creatinine Ratio 8.9 10-20 Random Glucose 176 70-99 mg/dl Estimated Average Glucose 169 mg/dl Hemoglobin A1c 7.5 4.5-5.6 % Lactic Acid Level 0.9 0.4-2.0 mmol/L Calcium Level 8.6 8.5-10.1 mg/dl Total Bilirubin 0.6 0.2-1 mg/dl Direct Bilirubin 0.1 0-0.2 mg/dl Aspartate Amino Transf (AST/SGOT) 13 15-37 U/L Alanine Aminotransferase (ALT/SGPT) 14 12-78 U/L Alkaline Phosphatase 192 45-117 U/L Total Protein 6.0 6.4-8.2 gm/dl Albumin 1.7 3.4-5.0 gm/dl Globulin 4.3 2.5-4.0 gm/dl Albumin/Globulin Ratio 0.4 0.9-2 Beta-Hydroxybutyric Acid 13.14 0.2-2.81 mg/dL Urine Color YELLOW Urine Appearance CLOUDY CLEAR Urine pH 7.5 4.5-7.5 Urine Specific [place] 1.017 1.000-1.030 Urine Protein 2+ NEG Urine Glucose (UA) 3+ NEG Urine Ketones NEG NEG Urine Occult Blood NEG NEG Urine Nitrite NEG NEG Urine Bilirubin NEG NEG Urine Urobilinogen NEG NEG Urine Leukocyte Esterase SMALL NEG Urine WBC (Auto) >30 0-5 /hpf Urine RBC (Auto) 0-4 0-4 /hpf Urine Hyaline Casts (Auto) 10-30 0-5 /lpf Urine Epithelial Cells (Auto) >30 0-5 /lpf Urine Bacteria (Auto) 1+ NEG Urine Pathogenic Casts 0 /lpf Test 01/03/18 08:37 01/03/18 14:59 01/03/18 16:40 Range/Units Venous Blood pH 7.41 7.45 7.36-7.41 Sodium Level 134 133 136-145 mmol/L Potassium Level 3.9 3.4 3.5-5.1 mmol/L Chloride Level 94 96 98-107 mmol/L Carbon Dioxide Level 29 29 21-32 mmol/L Anion Gap 11.0 8.0 3-11 mmol/L Blood Urea Nitrogen 42 7-18 mg/dl Creatinine 4.66 2.28 0.60-1.20 mg/dl Est Creatinine Clear Calc Drug Dose 9.1 18.4 ml/min Estimated GFR () 10.4 24.8 Estimated GFR (Non- 9.0 21.4 BUN/Creatinine Ratio 9.1 7.7 10-20 Random Glucose 170 96 70-99 mg/dl Calcium Level 8.8 8.1 8.5-10.1 mg/dl Bedside Glucose 94 70-90 mg/dl
--- NOTE | 2018-01-03 20:50 | Progress Note ---
Progress Note Date of Service Jan 03, 2018. Progress Note Blood culture drawn on 01/02/2018: 1 bottle growing gram-positive cocci Repeat blood cultures ordered ID eval requested on IV vancomycin
[2018-01-04 00:16] VITALS: BP 128/69; PULSE 92; TEMP 37.6; O2SAT 98
[2018-01-04] MEDS: MoRPHine SULFATE 2 MG/ML CARP IV PRN ×3 (00:23→08:54)
[2018-01-04] MEDS: POTASSIUM CHLR 10 MEQ / WTR 10 MEQ in PREMIXED WATER 100 ML IV SCH ×2 (01:02→02:06)
[2018-01-04] MEDS: INSULIN ASPART 100 UNITS/ML 3 ML PEN SC SCH ×6 (04:00→21:49)
[2018-01-04 04:07] VITALS: BP 110/60; PULSE 100; TEMP 37.4; O2SAT 98
[2018-01-04] MEDS: DEXTROSE 5% 1000ML 1,000 ML IV SCH (04:51)
[2018-01-04 04:59] LABS: HEMATOCRIT 39.1 % (37-47); HEMOGLOBIN 12.2 g/dL (12.0-16.0); MEAN CELL VOLUME 96.1 fL (80-100); MEAN CORPUSCULAR HGB CONC 31.2 g/dl (32-36); MEAN PLATELET VOLUME 8.4 fL (7.4-10.4); PLATELET COUNT 252 K/uL (130-400); RED CELL DISTRIBUTION WIDTH CV 15.7 % (11.5-14.5); RED CELL DISTRIBUTION WIDTH SD 55.4 fL (36.4-46.3); WHITE BLOOD COUNT 10.18 K/uL (4.8-10.8)
[2018-01-04 06:13] LABS: ALBUMIN 1.6 gm/dl (3.4-5.0); CALCIUM 8.4 mg/dl (8.5-10.1); CREATININE 3.12 mg/dl (0.60-1.20); POTASSIUM 3.7 mmol/L (3.5-5.1)
[2018-01-04 06:23] LABS: PHOSPHORUS 4.5 mg/dl (2.5-4.9); TOTAL PROTEIN 5.5 gm/dl (6.4-8.2)
[2018-01-04] MEDS: METRONIDAZOLE 500 MG/ NSS IV SCH ×3 (06:35→21:59)
[2018-01-04 07:58] VITALS: BP 96/61; PULSE 95; TEMP 36.2; O2SAT 92
[2018-01-04] MEDS: METOPROLOL TARTRATE 25 MG TAB PO SCH ×2 (08:39→21:00)
[2018-01-04] MEDS: INSULIN GLARGINE SOLOSTAR 100 UNITS/ML 3 ML PEN SC SCH (08:58)
[2018-01-04] MEDS ORDERED: INSULIN GLARGINE SOLOSTAR 100 UNITS/ML 3 ML PEN SC SCH ×2 (09:00)
--- NOTE | 2018-01-04 09:13 | Pharmacy Progress Note ---
Pharmacy Abx Dose Short Note Date of Service Jan 04, 2018. Assessment & Plan Item Value Date Time Random Vancomycin Level 16.8 mcg/ml 01/04/18 0441 Creatinine 3.12 mg/dl H # 01/04/18 0442 Est Creatinine Clear Calc Drug Dose 13.4 ml/min 01/04/18441 Assessment 67 year old female receiving VANC/Cipro/Flagyl for treatment of GI infection * Day # 3 of antimicrobial therapy. Plan Vancomycin * Pt received hemodialysis yesterday in afternoon * Random level of 16.8 mcg/mL is therapeutic. * Will redose with supplemental VANC 500mg IV x 1 today and recheck Random Vanc with am labs 01/06 to guide subsequent dosing. Pharmacy will continue to follow and will adjust dose/frequency as necessary. Thank you.
--- NOTE | 2018-01-04 09:52 | Surgery Progress Note ---
Surgery Progress Note Date of Service Jan 04, 2018. Subjective pt states she had a terrible night between shoulder pain, abdominal pain and labile blood sugars. admits she is comfortable/feeling better currently. +bm yesterday Objective Vital Signs: Date Time Temp Pulse Resp B/P (MAP) Pulse Ox O2 Delivery O2 Flow Rate FiO2 01/04/18 07:58 36.2 95 18 96/61 (73) 92 Nasal Cannula 1.0 01/04/18 04:07 37.4 100 20 110/60 (77) 98 2.0 01/04/18 04:00 Nasal Cannula 2.0 01/04/18 00:16 37.6 92 20 128/69 (88) 98 2.0 01/04/18 00:00 Nasal Cannula 2.0 01/03/18 20:00 Nasal Cannula 2.0 01/03/18 19:34 37.1 85 20 133/68 (89) 98 2.0 01/03/18 16:00 Nasal Cannula 2.0 01/03/18 15:18 36.9 88 18 131/65 (87) 97 01/03/18 13:35 36.6 78 125/62 (83) 01/03/18 13:00 81 108/52 01/03/18 12:45 72 117/57 01/03/18 12:30 81 116/57 01/03/18 12:15 78 115/58 01/03/18 12:00 71 128/49 01/03/18 11:45 78 114/57 01/03/18 11:30 80 118/60 01/03/18 11:15 80 112/57 01/03/18 11:00 79 114/57 01/03/18 10:45 81 110/51 01/03/18 10:30 81 108/58 01/03/18 10:15 82 103/49 01/03/18 10:00 80 111/62 General Appearance: no apparent distress Respiratory/Chest: no respiratory distress, no accessory muscle use Abdomen: soft, + distended, + pertinent finding (+diffuse lower abdominal tenderness with mild guarding. no peritonitis) Laboratory Results: Results Past 24 Hours Test 01/03/18 14:59 01/03/18 16:40 01/03/18 20:03 01/04/18 00:07 Range/Units Bedside Glucose 94 92 74 70-90 mg/dl Venous Blood pH 7.45 7.36-7.41 Sodium Level 133 136-145 mmol/L Potassium Level 3.4 3.5-5.1 mmol/L Chloride Level 96 98-107 mmol/L Carbon Dioxide Level 29 21-32 mmol/L Anion Gap 8.0 3-11 mmol/L Blood Urea Nitrogen 18 7-18 mg/dl Creatinine 2.28 0.60-1.20 mg/dl Est Creatinine Clear Calc Drug Dose 18.4 ml/min Estimated GFR () 24.8 Estimated GFR (Non- 21.4 BUN/Creatinine Ratio 7.7 10-20 Random Glucose 96 70-99 mg/dl Calcium Level 8.1 8.5-10.1 mg/dl Test 01/04/18 03:53 01/04/18 04:16 01/04/18 04:41 01/04/18 04:42 Range/Units Bedside Glucose 55 131 70-90 mg/dl Random Vancomycin Level 16.8 mcg/ml White Blood Count 10.18 4.8-10.8 K/uL Red Blood Count 4.07 4.2-5.4 M/uL Hemoglobin 12.2 12.0-16.0 g/dL Hematocrit 39.1 37-47 % Mean Corpuscular Volume 96.1 80-100 fL Mean Corpuscular Hemoglobin 30.0 25-34 pg Mean Corpuscular Hemoglobin Concent 31.2 32-36 g/dl RDW Standard Deviation 55.4 36.4-46.3 fL RDW Coefficient of Variation 15.7 11.5-14.5 % Platelet Count 252 130-400 K/uL Mean Platelet Volume 8.4 7.4-10.4 fL Sodium Level 135 136-145 mmol/L Potassium Level 3.7 3.5-5.1 mmol/L Chloride Level 98 98-107 mmol/L Carbon Dioxide Level 27 21-32 mmol/L Anion Gap 10.0 3-11 mmol/L Blood Urea Nitrogen 27 7-18 mg/dl Creatinine 3.12 0.60-1.20 mg/dl Est Creatinine Clear Calc Drug Dose 13.4 ml/min Estimated GFR () 16.9 Estimated GFR (Non- 14.6 BUN/Creatinine Ratio 8.7 10-20 Random Glucose 117 70-99 mg/dl Calcium Level 8.4 8.5-10.1 mg/dl Phosphorus Level 4.5 2.5-4.9 mg/dl Magnesium Level 1.8 1.8-2.4 mg/dl Total Bilirubin 0.6 0.2-1 mg/dl Direct Bilirubin 0.2 0-0.2 mg/dl Aspartate Amino Transf (AST/SGOT) 21 15-37 U/L Alanine Aminotransferase (ALT/SGPT) 17 12-78 U/L Alkaline Phosphatase 159 45-117 U/L Total Protein 5.5 6.4-8.2 gm/dl Albumin 1.6 3.4-5.0 gm/dl Globulin 3.9 2.5-4.0 gm/dl Albumin/Globulin Ratio 0.4 0.9-2 Test 01/04/18 04:49 01/04/18 05:35 01/04/18 07:47 Range/Units Bedside Glucose 106 105 108 70-90 mg/dl Microbiology Results 01/03/18 Blood Culture, Received Pending 01/03/18 Blood Culture, Received Pending 01/03/18 MRSA DNA Surveillance Screen - Final, Complete Specimen Negative for MRSA by DNA Probe Assessment & Plan wbc decreased/afebrile with slight improvement of her abdominal pain currently will d/w primary team but I feel an IR drain of the RLQ fluid should be done. will continue to follow closely clinically continue npo/ngt/IV antibiotics.
[2018-01-04 11:56] VITALS: BP 96/59; PULSE 85; TEMP 36.4; O2SAT 97
[2018-01-04] MEDS ORDERED: VANCOMYCIN IV 500 MG in SODIUM CHLORIDE 0.9% 100ML 100 ML IV ONE (12:00)
--- NOTE | 2018-01-04 12:13 | Pharmacy Progress Note ---
Glycemic Control Progress Note Date of Service Jan 04, 2018. Scope Glycemic Pharmacist consulted for glycemic control to write orders per [facility] inpatient glycemic control protocol. Objective Accuchecks BSG (last 24hrs): Test 01/03/18 14:59 01/03/18 16:40 01/03/18 20:03 01/04/18 00:07 Bedside Glucose 94 mg/dl (70-90) 92 mg/dl (70-90) 74 mg/dl (70-90) Random Glucose 96 mg/dl (70-99) Test 01/04/18 03:53 01/04/18 04:16 01/04/18 04:42 01/04/18 04:49 Bedside Glucose 55 mg/dl (70-90) 131 mg/dl (70-90) 106 mg/dl (70-90) Random Glucose 117 mg/dl (70-99) Test 01/04/18 05:35 01/04/18 07:47 01/04/18 11:27 Bedside Glucose 105 mg/dl (70-90) 108 mg/dl (70-90) 125 mg/dl (70-90) HbA1c: Test 01/03/18 04:12 Hemoglobin A1c 7.5 % (4.5-5.6) H Recent Pertinent Medications The patient is currently receiving: * Basal insulin: Lantus 5 units daily * Correctional Insulin: Novolog Correction per scale ACHS Goal Range: Low 120 mg/dL - High 160 mg/dL Correction Factor: 35 mg/dL/unit * Prandial insulin: Per carb ratio of 1 unit per 10 grams CHO consumed Outpatient Anti-Diabetic Meds Basal Insulin Bolus Insulin Assessment & Plan ASSESSMENT: 01/03/18 * Possible procedure today, still NPO status - will keep Lantus at 80% of from home dose (for type 1 diabetic) * No Novolog has been required since insulin drip was discontinued yesterday with BSG's ranging 145-151 mg/dl and patient requires very low doses of Lantus - no change needed at this time 01/04/18 * Patient remains NPO - no surgery planned, but also not ruled out at this time * Hypoglycemia noted this AM - BSG of 55 mg/dL. Likely 2nd increased insulin sensitivity after HD yesterday despite only receiving 80% of usual home dose of Lantus * OK to decrease dose of Lantus further - of note, will trend AM fasting BSG's both based on Lantus dose and in relation to HD vs. non-HD days. Patient may require adjustment of Lantus depending on plan for HD * Patient has received no Novolog, but will also loosen Novolog significantly as patient seems to be sensitive to insulin at this time PLAN FOR INPATIENT GLYCEMIC CONTROL: * Decrease Basal insulin: Lantus SQ qAM - 3 units daily while NPO * Bolus insulin * NovoLog per scale ACHS or Q6hrs while NPO * Goal Range: Low 120 mg/dL - High 160 mg/dL * Loosen Correction Factor: 45 mg/dL/unit * Loosen Nutritional / Prandial insulin per carb ratio of 1 unit per 15 grams CHO consumed * Please note that the plan above was derived based on current level of insulin resistance and hospital stress. These recommendations are appropriate for inpatient admission only. Plan of care upon discharge will need to be reassessed to avoid potential outpatient hypo/hyperglycemia. Thank you.
[2018-01-04] MEDS: ACETAMINOPHEN IV 650 MG in EMPTY BAG 0 ML IV PRN (12:54)
[2018-01-04 15:27] VITALS: BP 100/61; PULSE 83; TEMP 36.4; O2SAT 99
--- NOTE | 2018-01-04 15:51 | Nephrology Progress Note ---
Nephrology Progress Note Date of Service Jan 04, 2018. Chief Complaint ESRD Subjective Mrs. Turner was seen & examined in her hospital room this afternoon. Her daughter was present at bedside. Mrs. Turner was last dialyzed yesterday without complication. She continues to have RLQ abdominal pain. She reports that she may require IR drainage of a fluid collection near her cecum. Review of Systems Constitutional: No fever Cardiovascular: No chest pain Respiratory: No dyspnea at rest Abdomen: + pain, + nausea Extremities: No leg edema A complete review of systems was performed. Pertinent positives are noted above. All other systems are negative. Vital Signs Last 8 Hrs Date Time Temp Pulse Resp B/P (MAP) Pulse Ox O2 Delivery O2 Flow Rate FiO2 01/04/18 15:27 36.4 83 18 100/61 (74) 99 Nasal Cannula 1.5 01/04/18 11:56 36.4 85 18 96/59 (71) 97 Nasal Cannula 2.0 01/04/18 08:00 Nasal Cannula 2.0 01/04/18 07:58 36.2 95 18 96/61 (73) 92 Nasal Cannula 1.0 I & O 24-Hour Column 01/05/18 08:00 Intake Total 495 ml Balance 495 ml Last Recorded Weight Weight (Kilograms): 50.200 Physical Exam General Appearance: no apparent distress Head: normocephalic, atraumatic Eyes: PERRL, EOMI Neck: no adenopathy Respiratory/Chest: lungs clear, no accessory muscle use Cardiovascular: regular rate, rhythm Abdomen/GI: normal bowel sounds, non tender, soft Extremities/Musculoskelatal: no calf tenderness, no pedal edema, + pertinent finding (L upper arm AVF w/ + bruit) Neurologic/Psych: alert, oriented x 3 Family History No pertinent family history Social History Smokeless Tobacco Use: No Alcohol Use: none Drug Use: none Marital Status: Housing Status: lives with significant other 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 Laboratory Results Past 24 Hours 01/04/18 04:42 01/03/18 16:40 01/04/18 04:42 Test 01/03/18 16:40 01/03/18 20:03 01/04/18 00:07 01/04/18 03:53 Venous Blood pH 7.45 (7.36-7.41) Anion Gap 8.0 mmol/L (3-11) Est Creatinine Clear Calc Drug Dose 18.4 ml/min Estimated GFR () 24.8 Estimated GFR (Non- 21.4 BUN/Creatinine Ratio 7.7 (10-20) Calcium Level 8.1 mg/dl (8.5-10.1) Bedside Glucose 92 mg/dl (70-90) 74 mg/dl (70-90) 55 mg/dl (70-90) Test 01/04/18 04:16 01/04/18 04:41 01/04/18 04:42 01/04/18 04:49 Bedside Glucose 131 mg/dl (70-90) 106 mg/dl (70-90) Random Vancomycin Level 16.8 mcg/ml Red Blood Count 4.07 M/uL (4.2-5.4) Mean Corpuscular Volume 96.1 fL (80-100) Mean Corpuscular Hemoglobin 30.0 pg (25-34) Mean Corpuscular Hemoglobin Concent 31.2 g/dl (32-36) RDW Standard Deviation 55.4 fL (36.4-46.3) RDW Coefficient of Variation 15.7 % (11.5-14.5) Mean Platelet Volume 8.4 fL (7.4-10.4) Anion Gap 10.0 mmol/L (3-11) Est Creatinine Clear Calc Drug Dose 13.4 ml/min Estimated GFR () 16.9 Estimated GFR (Non- 14.6 BUN/Creatinine Ratio 8.7 (10-20) Calcium Level 8.4 mg/dl (8.5-10.1) Phosphorus Level 4.5 mg/dl (2.5-4.9) Magnesium Level 1.8 mg/dl (1.8-2.4) Total Bilirubin 0.6 mg/dl (0.2-1) Direct Bilirubin 0.2 mg/dl (0-0.2) Aspartate Amino Transf (AST/SGOT) 21 U/L (15-37) Alanine Aminotransferase (ALT/SGPT) 17 U/L (12-78) Alkaline Phosphatase 159 U/L (45-117) Total Protein 5.5 gm/dl (6.4-8.2) Albumin 1.6 gm/dl (3.4-5.0) Globulin 3.9 gm/dl (2.5-4.0) Albumin/Globulin Ratio 0.4 (0.9-2) Test 01/04/18 05:35 01/04/18 07:47 01/04/18 11:27 01/04/18 14:43 Bedside Glucose 105 mg/dl (70-90) 108 mg/dl (70-90) 125 mg/dl (70-90) 123 mg/dl (70-90) Date/Time Source Procedure Growth Status 01/03/18 21:45 Nasal MRSA DNA Surveillance Screen - Final Specimen Negative for MRSA by DNA Probe Complete Allergies Coded Allergies: Adhesives (Verified Allergy, Intermediate, RASH, 01/02/18) Amoxicillin (Verified Allergy, Intermediate, RASH, 01/02/18) Ampicillin (Verified Allergy, Intermediate, RASH, 01/02/18) Erythromycin (Verified Allergy, Intermediate, RASH, 01/02/18) Etodolac (Verified Allergy, Intermediate, RASH, 01/02/18) Penicillins (Verified Allergy, Intermediate, RASH, 01/02/18) Sulfa Antibiotics (Verified Allergy, Intermediate, RASH, 01/02/18) Aspirin (Verified Allergy, Mild, RASH, 01/02/18) Sevelamer (Verified Allergy, Mild, rash, 01/02/18) Medications Current Inpatient Medications Medications (Trade) Dose Ordered Sig/Eduardo Route Start Time Stop Time Status Last Admin Dose Admin Miscellaneous Information (Consult Glycemic Management Pharmacy) 1 ea UD PRN N/A 01/02/18 13:09 02/01/18 13:08 Ondansetron HCl (Zofran Inj) 4 mg Q6H PRN IV 01/02/18 12:30 02/01/18 12:29 01/03/18 08:58 4 MG Glucose (Glucose 40% Gel) 15-30 GRAMS 15 GRAMS... UD PRN PO 01/02/18 13:15 02/01/18 13:14 Glucose (Glucose Chew Tab) 4-8 Tablets 4 Tabl... UD PRN PO 01/02/18 13:15 02/01/18 13:14 Dextrose (Dextrose 50% 50ML Syringe) 25-50ML OF 50% DW IV FOR... UD PRN IV 01/02/18 13:15 02/01/18 13:14 01/04/18 04:00 25 ML Glucagon (Glucagon Inj) 1 mg UD PRN SQ 01/02/18 13:15 02/01/18 13:14 Morphine Sulfate (MoRPHine SULFATE INJ) 1 mg Q4 PRN IV 01/02/18 13:15 01/16/18 13:14 01/04/18 08:54 1 MG Hydralazine HCl (HydrALAZINE INJ) 10 mg Q8 PRN IV. 01/02/18 13:15 02/01/18 13:14 Ciprofloxacin (Consult) 1 ea UD PRN N/A 01/02/18 13:15 02/01/18 13:14 Ciprofloxacin/ Dextrose 400 mg/ Prmx 200 ml @ 100 mls/hr Q24H IV 01/03/18 16:00 01/13/18 15:59 01/03/18 16:21 100 MLS/HR Metronidazole 500 mg/Prmx 100 ml @ 100 mls/hr Q8H IV 01/02/18 22:00 01/12/18 21:59 01/04/18 14:45 100 MLS/HR Miscellaneous Information 1 ea UD PRN N/A 01/02/18 13:30 02/01/18 13:29 Insulin Aspart (novoLOG ASPART) SLIDING SCALE Q4 SC 01/02/18 16:00 02/01/18 15:59 Future hold Miscellaneous Information (Consult) 1 ea UD PRN N/A 01/03/18 13:30 02/02/18 13:29 Acetaminophen 650 mg/Empty Bag 65 ml @ 260 mls/hr Q6H PRN IV 01/04/18 00:30 02/03/18 00:29 01/04/18 12:54 260 MLS/HR Metoprolol Tartrate (Lopressor Tab) 25 mg BID PO 01/04/18 09:00 02/03/18 08:59 Dextrose 1,000 ml @ 40 mls/hr Q24H IV 01/04/18 04:30 02/03/18 04:29 01/04/18 04:51 40 MLS/HR Insulin Glargine (Lantus Solostar Pen) 3 units DAILY SC 01/04/18 09:00 02/03/18 08:59 01/04/18 08:58 3 UNITS Impression (1) ESRD (end stage renal disease) on dialysis (2) Hyperparathyroidism due to ESRD on dialysis (3) Shoulder fracture, left (4) SBO (small bowel obstruction) (5) Anemia (6) Diabetes Frieda is a 67-year-old female with ESRD on HD. ESRD has been attributed to microvascular disease, hypertension and diabetes mellitus. Medical history is notable for chronic liver disease, hypertension, diabetes mellitus. The patient has hyperphosphatemia an difficulty tolerating phosphate binders in the past. She was treated conservatively for appendicitis 09/06. She has had chronic abdominal symptoms. Frieda admits to poor adherence to medications at home. She is being treated for possible SBO. NGT to suction and NPO. She may require IR drainage of an abscess near the cecum. Frieda suffered a mechanical fall resulting in a comminuted minimally displaced humeral neck fracture. Recommendations ESRD: -- Volume status and electrolyte balance are acceptable. No acute indication for HD at this time. -- AVF with + bruit -- Continue Bumex as patient continues to make urine. Anemia: -- Chronic and stable -- No need for KISHA Hypertension: -- BP acceptable at this time CKD/MBD: -- Hold PO4 binders while NPO
--- NOTE | 2018-01-04 16:52 | Progress Note ---
Internal Med Progress Note Date of Service: Jan 04, 2018. Provider Documentation: SUBJECTIVE: still has abdominal pain no nausea not passing gas afebrile denies chest pain or sob otherwise doing ok OBJECTIVE: Vital Signs-as noted below Exam: General-alert and oriented. Not in distress ENT-Normal hearing Neck-no neck masses Lungs-cta b/l no wheezing or crackles Heart-S1 and S2 heard regular rate and rhythm no murmurs Abdomen-Soft bowel sounds absent diffuse tender mild distension Extremities-no edema no erythema Neuro-alert and awake moves extremities Lab data as noted below. ASSESSMENT & PLAN: This is a 67yo F with a PMH of ESRD on dialysis, Type 1 DM, HTN and other medical problems listed below who presents after a fall this AM and was found to have a left humeral neck fracture, SBO and hyperglycemia. Small bowel obstruction: presented with Abd pain, nausea x 6 days. Last BM 2 days ago H/o medically managed appendicitis with rupture in Aug 2017 possible sepsis? with elevated wbc, lactic acid 2.7, possible peritonitis or abscess on ct scan and sbo on ct scan Has been following with Dr. Ryan of general surgery Ng tube placed started on Cipro and Flagyl iv fluids lactic acid normalized NPO surgery on board and appreciate inputs If deteriorates plan to transfer to tertiary care for IR for possible abscess drainage L Humeral neck fracture: Fell on shoulder XR with comminuted minimally displaced and impacted fracture of the neck of the attending addendum left humerus Shoulder immobilized in splint -Ortho consulted and recommends conservative management Hyperglycemia 2/2 DM I: Non-compliant with insulin, infection hyperglycemia on presentation received 10 units of iv insulin currently on lantus and iss 105/108/125/123 appreciate pharmacy help. ESRD on dialysis: Dialysis MWF Follows with [facility] nephro Usually takes 80mg PO lasix on non-dialysis days which id held as patient is npo nephro consulted and appreciate inputs HTN: Holding home agents Hydralazine 10mg IV Q8 for SBP >160 DVT Ppx: SCDs for now. Code status: FULL per admissions. PCP: Jena Dispo:to be determined Vital Signs: Date Time Temp Pulse Resp B/P (MAP) Pulse Ox O2 Delivery O2 Flow Rate FiO2 01/04/18 15:27 36.4 83 18 100/61 (74) 99 Nasal Cannula 1.5 01/04/18 11:56 36.4 85 18 96/59 (71) 97 Nasal Cannula 2.0 01/04/18 08:00 Nasal Cannula 2.0 01/04/18 07:58 36.2 95 18 96/61 (73) 92 Nasal Cannula 1.0 01/04/18 04:07 37.4 100 20 110/60 (77) 98 2.0 01/04/18 04:00 Nasal Cannula 2.0 01/04/18 00:16 37.6 92 20 128/69 (88) 98 2.0 01/04/18 00:00 Nasal Cannula 2.0 01/03/18 20:00 Nasal Cannula 2.0 01/03/18 19:34 37.1 85 20 133/68 (89) 98 2.0 Lab Results: Results Past 24 Hours Test 01/03/18 20:03 01/04/18 00:07 01/04/18 03:53 01/04/18 04:16 Range/Units Bedside Glucose 92 74 55 131 70-90 mg/dl Test 01/04/18 04:41 01/04/18 04:42 01/04/18 04:49 01/04/18 05:35 Range/Units Random Vancomycin Level 16.8 mcg/ml White Blood Count 10.18 4.8-10.8 K/uL Red Blood Count 4.07 4.2-5.4 M/uL Hemoglobin 12.2 12.0-16.0 g/dL Hematocrit 39.1 37-47 % Mean Corpuscular Volume 96.1 80-100 fL Mean Corpuscular Hemoglobin 30.0 25-34 pg Mean Corpuscular Hemoglobin Concent 31.2 32-36 g/dl RDW Standard Deviation 55.4 36.4-46.3 fL RDW Coefficient of Variation 15.7 11.5-14.5 % Platelet Count 252 130-400 K/uL Mean Platelet Volume 8.4 7.4-10.4 fL Sodium Level 135 136-145 mmol/L Potassium Level 3.7 3.5-5.1 mmol/L Chloride Level 98 98-107 mmol/L Carbon Dioxide Level 27 21-32 mmol/L Anion Gap 10.0 3-11 mmol/L Blood Urea Nitrogen 27 7-18 mg/dl Creatinine 3.12 0.60-1.20 mg/dl Est Creatinine Clear Calc Drug Dose 13.4 ml/min Estimated GFR () 16.9 Estimated GFR (Non- 14.6 BUN/Creatinine Ratio 8.7 10-20 Random Glucose 117 70-99 mg/dl Calcium Level 8.4 8.5-10.1 mg/dl Phosphorus Level 4.5 2.5-4.9 mg/dl Magnesium Level 1.8 1.8-2.4 mg/dl Total Bilirubin 0.6 0.2-1 mg/dl Direct Bilirubin 0.2 0-0.2 mg/dl Aspartate Amino Transf (AST/SGOT) 21 15-37 U/L Alanine Aminotransferase (ALT/SGPT) 17 12-78 U/L Alkaline Phosphatase 159 45-117 U/L Total Protein 5.5 6.4-8.2 gm/dl Albumin 1.6 3.4-5.0 gm/dl Globulin 3.9 2.5-4.0 gm/dl Albumin/Globulin Ratio 0.4 0.9-2 Bedside Glucose 106 105 70-90 mg/dl Test 01/04/18 07:47 01/04/18 11:27 01/04/18 14:43 Range/Units Bedside Glucose 108 125 123 70-90 mg/dl Microbiology Results 01/03/18 Blood Culture, Received Pending 01/03/18 Blood Culture, Received Pending 01/03/18 MRSA DNA Surveillance Screen - Final, Complete Specimen Negative for MRSA by DNA Probe
[2018-01-04] MEDS: CIPROFLOXACIN 400MG / D5W IV SCH (17:44)
[2018-01-04 19:13] VITALS: BP 101/64; PULSE 80; TEMP 36.4; O2SAT 99
[2018-01-05] VITALS (7 sets, daily range): BP systolic 97–106; BP diastolic 53–61; PULSE 75–84; TEMP 36.3–36.7; O2SAT 95–99
[2018-01-05] MEDS: INSULIN ASPART 100 UNITS/ML 3 ML PEN SC SCH ×5 (00:18→17:10)
[2018-01-05] MEDS: MoRPHine SULFATE 2 MG/ML CARP IV PRN ×2 (00:24→06:35)
[2018-01-05] MEDS: DEXTROSE 5% 1000ML 1,000 ML IV SCH (04:30)
[2018-01-05] MEDS: METRONIDAZOLE 500 MG/ NSS IV SCH ×3 (06:28→22:09)
[2018-01-05 06:51] LABS: HEMATOCRIT 35.6 % (37-47); HEMOGLOBIN 11.3 g/dL (12.0-16.0); MEAN CELL VOLUME 95.7 fL (80-100); MEAN CORPUSCULAR HEMOGLOBIN 30.4 pg (25-34); MEAN CORPUSCULAR HGB CONC 31.7 g/dl (32-36); NUCLEATED RED BLOOD CELL ABS 0.02 K/uL (0-0); PLATELET COUNT 233 K/uL (130-400); RED CELL DISTRIBUTION WIDTH CV 16.2 % (11.5-14.5); RED CELL DISTRIBUTION WIDTH SD 56.3 fL (36.4-46.3); WHITE BLOOD COUNT 10.46 K/uL (4.8-10.8)
[2018-01-05 07:21] LABS: ALBUMIN 1.5 gm/dl (3.4-5.0); CALCIUM 8.7 mg/dl (8.5-10.1); CREATININE 4.35 mg/dl (0.60-1.20); POTASSIUM 4.1 mmol/L (3.5-5.1)
[2018-01-05 07:25] LABS: PHOSPHORUS 6.8 mg/dl (2.5-4.9); TOTAL PROTEIN 5.5 gm/dl (6.4-8.2)
[2018-01-05] MEDS: METOPROLOL TARTRATE 25 MG TAB PO SCH ×2 (08:31→21:00)
[2018-01-05] MEDS: INSULIN GLARGINE SOLOSTAR 100 UNITS/ML 3 ML PEN SC SCH (08:47)
[2018-01-05] MEDS: SODIUM CHLORIDE 0.9% 1000ML 1,000 ML IV SCH (08:53)
[2018-01-05] MEDS: ACETAMINOPHEN IV 650 MG in EMPTY BAG 0 ML IV PRN (09:54)
--- NOTE | 2018-01-05 10:31 | Surgery Progress Note ---
Surgery Progress Note Date of Service Jan 05, 2018. Subjective overall doing about the same... doing a little better with slightly less abdominal pain and some decreased distension. Objective Vital Signs: Date Time Temp Pulse Resp B/P (MAP) Pulse Ox O2 Delivery O2 Flow Rate FiO2 01/05/18 07:28 36.6 84 20 97/53 (68) 95 Nasal Cannula 1.0 01/05/18 04:00 Nasal Cannula 2.0 01/05/18 03:48 36.6 80 20 103/58 (73) 98 1.5 01/05/18 00:08 36.5 75 18 99/60 (73) 99 1.5 01/05/18 00:00 Nasal Cannula 2.0 01/04/18 20:00 Nasal Cannula 2.0 01/04/18 19:13 36.4 80 18 101/64 (76) 99 1.0 01/04/18 16:00 Nasal Cannula 2.0 01/04/18 15:27 36.4 83 18 100/61 (74) 99 Nasal Cannula 1.5 01/04/18 12:00 Nasal Cannula 2.0 01/04/18 11:56 36.4 85 18 96/59 (71) 97 Nasal Cannula 2.0 General Appearance: no apparent distress Head: normocephalic, atraumatic Respiratory/Chest: no respiratory distress, no accessory muscle use Abdomen: soft, + distended (distended but decreased slightly since yesterday. mild diffuse tenderness but no peritoneal signs) Laboratory Results: Results Past 24 Hours Test 01/04/18 11:27 01/04/18 14:43 01/04/18 16:23 01/04/18 20:26 Range/Units Bedside Glucose 125 123 150 171 70-90 mg/dl Test 01/05/18 00:09 01/05/18 04:02 01/05/18 06:43 01/05/18 07:37 Range/Units Bedside Glucose 168 157 143 70-90 mg/dl White Blood Count 10.46 4.8-10.8 K/uL Red Blood Count 3.72 4.2-5.4 M/uL Hemoglobin 11.3 12.0-16.0 g/dL Hematocrit 35.6 37-47 % Mean Corpuscular Volume 95.7 80-100 fL Mean Corpuscular Hemoglobin 30.4 25-34 pg Mean Corpuscular Hemoglobin Concent 31.7 32-36 g/dl RDW Standard Deviation 56.3 36.4-46.3 fL RDW Coefficient of Variation 16.2 11.5-14.5 % Platelet Count 233 130-400 K/uL Mean Platelet Volume 9.0 7.4-10.4 fL Nucleated RBC Absolute Count (auto) 0.02 0-0 K/uL Nucleated Red Blood Cells % 0.2 % Venous Blood pH 7.38 7.36-7.41 Sodium Level 134 136-145 mmol/L Potassium Level 4.1 3.5-5.1 mmol/L Chloride Level 95 98-107 mmol/L Carbon Dioxide Level 26 21-32 mmol/L Anion Gap 13.0 3-11 mmol/L Blood Urea Nitrogen 49 7-18 mg/dl Creatinine 4.35 0.60-1.20 mg/dl Est Creatinine Clear Calc Drug Dose 9.8 ml/min Estimated GFR () 11.3 Estimated GFR (Non- 9.8 BUN/Creatinine Ratio 11.2 10-20 Random Glucose 168 70-99 mg/dl Calcium Level 8.7 8.5-10.1 mg/dl Phosphorus Level 6.8 2.5-4.9 mg/dl Magnesium Level 2.0 1.8-2.4 mg/dl Total Bilirubin 0.5 0.2-1 mg/dl Direct Bilirubin 0.2 0-0.2 mg/dl Aspartate Amino Transf (AST/SGOT) 102 15-37 U/L Alanine Aminotransferase (ALT/SGPT) 81 12-78 U/L Alkaline Phosphatase 134 45-117 U/L Total Protein 5.5 6.4-8.2 gm/dl Albumin 1.5 3.4-5.0 gm/dl Globulin 4.0 2.5-4.0 gm/dl Albumin/Globulin Ratio 0.4 0.9-2 Assessment & Plan 01/05/18 doing about the same/slightly better wbc still same. afebrile will d/w Dr. Ryan. still not out of the saravia for ex-lap vs IR drainage of fluid cont NGT/antibiotics. 01/04/18 wbc decreased/afebrile with slight improvement of her abdominal pain currently will d/w primary team but I feel an IR drain of the RLQ fluid should be done. will continue to follow closely clinically continue npo/ngt/IV antibiotics. wbc decreased/afebrile with slight improvement of her abdominal pain currently will d/w primary team but I feel an IR drain of the RLQ fluid should be done. will continue to follow closely clinically continue npo/ngt/IV antibiotics.
--- NOTE | 2018-01-05 10:57 | Nephrology Progress Note ---
Nephrology Progress Note Date of Service Jan 05, 2018. Chief Complaint ESRD Subjective Frieda continues to experience RLQ abdominal discomfort. She denies angina or dyspnea Review of Systems Constitutional: No fever Cardiovascular: No chest pain Respiratory: No dyspnea at rest Abdomen: No nausea, No vomiting Extremities: No leg edema A complete review of systems was performed. Pertinent positives are noted above. All other systems are negative. Vital Signs Last 8 Hrs Date Time Temp Pulse Resp B/P (MAP) Pulse Ox O2 Delivery O2 Flow Rate FiO2 01/05/18 07:28 36.6 84 20 97/53 (68) 95 Nasal Cannula 1.0 01/05/18 04:00 Nasal Cannula 2.0 01/05/18 03:48 36.6 80 20 103/58 (73) 98 1.5 Last Recorded Weight Weight (Kilograms): 50.000 Physical Exam General Appearance: no apparent distress Head: normocephalic, atraumatic Eyes: PERRL, EOMI Neck: no adenopathy Respiratory/Chest: lungs clear, no respiratory distress Cardiovascular: regular rate, rhythm Abdomen/GI: soft, + pertinent finding (RLQ tenderness. No guarding) Extremities/Musculoskelatal: no calf tenderness, no pedal edema Neurologic/Psych: alert, oriented x 3 Family History No pertinent family history Social History Smokeless Tobacco Use: No Alcohol Use: none Drug Use: none Marital Status: Housing Status: lives with significant other 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 Laboratory Results Past 24 Hours 01/05/18 06:43 01/05/18 06:43 Test 01/04/18 11:27 01/04/18 14:43 01/04/18 16:23 01/04/18 20:26 Bedside Glucose 125 mg/dl (70-90) 123 mg/dl (70-90) 150 mg/dl (70-90) 171 mg/dl (70-90) Test 01/05/18 00:09 01/05/18 04:02 01/05/18 06:43 01/05/18 07:37 Bedside Glucose 168 mg/dl (70-90) 157 mg/dl (70-90) 143 mg/dl (70-90) Red Blood Count 3.72 M/uL (4.2-5.4) Mean Corpuscular Volume 95.7 fL (80-100) Mean Corpuscular Hemoglobin 30.4 pg (25-34) Mean Corpuscular Hemoglobin Concent 31.7 g/dl (32-36) RDW Standard Deviation 56.3 fL (36.4-46.3) RDW Coefficient of Variation 16.2 % (11.5-14.5) Mean Platelet Volume 9.0 fL (7.4-10.4) Nucleated RBC Absolute Count (auto) 0.02 K/uL (0-0) Nucleated Red Blood Cells % 0.2 % Venous Blood pH 7.38 (7.36-7.41) Anion Gap 13.0 mmol/L (3-11) Est Creatinine Clear Calc Drug Dose 9.8 ml/min Estimated GFR () 11.3 Estimated GFR (Non- 9.8 BUN/Creatinine Ratio 11.2 (10-20) Calcium Level 8.7 mg/dl (8.5-10.1) Phosphorus Level 6.8 mg/dl (2.5-4.9) Magnesium Level 2.0 mg/dl (1.8-2.4) Total Bilirubin 0.5 mg/dl (0.2-1) Direct Bilirubin 0.2 mg/dl (0-0.2) Aspartate Amino Transf (AST/SGOT) 102 U/L (15-37) Alanine Aminotransferase (ALT/SGPT) 81 U/L (12-78) Alkaline Phosphatase 134 U/L (45-117) Total Protein 5.5 gm/dl (6.4-8.2) Albumin 1.5 gm/dl (3.4-5.0) Globulin 4.0 gm/dl (2.5-4.0) Albumin/Globulin Ratio 0.4 (0.9-2) Allergies Coded Allergies: Adhesives (Verified Allergy, Intermediate, RASH, 01/02/18) Amoxicillin (Verified Allergy, Intermediate, RASH, 01/02/18) Ampicillin (Verified Allergy, Intermediate, RASH, 01/02/18) Erythromycin (Verified Allergy, Intermediate, RASH, 01/02/18) Etodolac (Verified Allergy, Intermediate, RASH, 01/02/18) Penicillins (Verified Allergy, Intermediate, RASH, 01/02/18) Sulfa Antibiotics (Verified Allergy, Intermediate, RASH, 01/02/18) Aspirin (Verified Allergy, Mild, RASH, 01/02/18) Sevelamer (Verified Allergy, Mild, rash, 01/02/18) Medications Current Inpatient Medications Medications (Trade) Dose Ordered Sig/Eduardo Route Start Time Stop Time Status Last Admin Dose Admin Miscellaneous Information (Consult Glycemic Management Pharmacy) 1 ea UD PRN N/A 01/02/18 13:09 02/01/18 13:08 Ondansetron HCl (Zofran Inj) 4 mg Q6H PRN IV 01/02/18 12:30 02/01/18 12:29 01/03/18 08:58 4 MG Glucose (Glucose 40% Gel) 15-30 GRAMS 15 GRAMS... UD PRN PO 01/02/18 13:15 02/01/18 13:14 Glucose (Glucose Chew Tab) 4-8 Tablets 4 Tabl... UD PRN PO 01/02/18 13:15 02/01/18 13:14 Dextrose (Dextrose 50% 50ML Syringe) 25-50ML OF 50% DW IV FOR... UD PRN IV 01/02/18 13:15 02/01/18 13:14 01/04/18 04:00 25 ML Glucagon (Glucagon Inj) 1 mg UD PRN SQ 01/02/18 13:15 02/01/18 13:14 Morphine Sulfate (MoRPHine SULFATE INJ) 1 mg Q4 PRN IV 01/02/18 13:15 01/16/18 13:14 01/05/18 06:35 1 MG Hydralazine HCl (HydrALAZINE INJ) 10 mg Q8 PRN IV. 01/02/18 13:15 02/01/18 13:14 Ciprofloxacin (Consult) 1 ea UD PRN N/A 01/02/18 13:15 02/01/18 13:14 Metronidazole 500 mg/Prmx 100 ml @ 100 mls/hr Q8H IV 01/02/18 22:00 01/12/18 21:59 01/05/18 06:28 100 MLS/HR Miscellaneous Information 1 ea UD PRN N/A 01/02/18 13:30 02/01/18 13:29 Insulin Aspart (novoLOG ASPART) SLIDING SCALE Q4 SC 01/02/18 16:00 02/01/18 15:59 Future hold 01/05/18 00:18 1 UNITS Miscellaneous Information (Consult) 1 ea UD PRN N/A 01/03/18 13:30 02/02/18 13:29 Acetaminophen 650 mg/Empty Bag 65 ml @ 260 mls/hr Q6H PRN IV 01/04/18 00:30 02/03/18 00:29 01/05/18 09:54 260 MLS/HR Metoprolol Tartrate (Lopressor Tab) 25 mg BID PO 01/04/18 09:00 02/03/18 08:59 Insulin Glargine (Lantus Solostar Pen) 3 units DAILY SC 01/04/18 09:00 02/03/18 08:59 01/05/18 08:47 3 UNITS Sodium Chloride 1,000 ml @ 50 mls/hr Q20H IV 01/05/18 08:45 02/04/18 08:44 01/05/18 08:53 50 MLS/HR Heparin Sodium (Porcine) (Heparin Iv Bolus) 2,000 unit TODAY@0600 IV 01/06/18 06:00 01/06/18 06:01 Heparin Sodium (Porcine) (Heparin Iv Bolus) 500 unit TODAY@0600,0700,0800 IV 01/06/18 06:00 01/06/18 18:00 Ciprofloxacin/ Dextrose 200 mg/ Prmx 100 ml @ 100 mls/hr Q24H IV 01/05/18 10:30 01/12/18 23:59 Impression (1) ESRD (end stage renal disease) on dialysis (2) Hyperparathyroidism due to ESRD on dialysis (3) Shoulder fracture, left (4) SBO (small bowel obstruction) (5) Anemia (6) Diabetes Frieda is a 67-year-old female with ESRD on HD. ESRD has been attributed to microvascular disease, hypertension and diabetes mellitus. Medical history is notable for chronic liver disease, hypertension, diabetes mellitus. The patient has hyperphosphatemia an difficulty tolerating phosphate binders in the past. She was treated conservatively for appendicitis 09/06. She has had chronic abdominal symptoms. Frieda admits to poor adherence to medications at home. She is being treated for possible SBO. NGT to suction and NPO. She may require IR drainage of an abscess near the cecum. Frieda suffered a mechanical fall resulting in a comminuted minimally displaced humeral neck fracture. Recommendations ESRD: -- Volume status and electrolyte balance are acceptable. No acute indication for HD at this time. -- Case discussed w/ surgery this am. Will schedule HD for 1st shift tomorrow. Orders entered into EMR and HD RN notified by phone today -- AVF with + bruit -- Continue Bumex as patient continues to make urine. Anemia: -- Chronic and stable -- No need for KISHA Hypertension: -- BP acceptable at this time CKD/MBD: -- Hold PO4 binders while NPO
[2018-01-05] MEDS: CIPROFLOXACIN / D5W 200 MG in PREMIXED IN D5W 100 ML IV SCH (11:00)
--- NOTE | 2018-01-05 15:23 | Medical Consult ---
Consultation Date of Consultation: Jan 05, 2018. Attending Physician: Jacques Blackwell MD Reason for Consultation: Gram-positive bacteremia History of Present Illness 59-year-old female with history of end-stage renal disease on dialysis, type 2 diabetes mellitus, hypertension, who was admitted to the hospital January 02 after suffering a fall at home resulting in left humeral fracture. Patient has history of appendicitis with rupture, treated medically in August with IV antibiotics. Patient reports that over the past several months she has had intermittent abdominal pain, up to 6/10 in intensity[address] She had CT scan in the emergency room, read by me, which showed evidence of possible small bowel obstruction, as well as complex right lower quadrant collection around the area of the cecum. Patient currently being treated with ciprofloxacin and metronidazole. Had 1 single positive blood culture on admission for coagulase negative Staph, follow-up blood cultures have been negative. Patient currently afebrile, abdominal pain slightly better. Past Medical/Surgical History Medical Problems: (1) Abnormal computed tomography angiography (CTA) of abdomen and pelvis Status: Acute (2) Acidosis Status: Acute (3) Acute renal failure Status: Acute (4) Bilateral pleural effusion Status: Acute (5) Congestive heart failure Status: Acute (6) Hyperglycemia Status: Acute (7) Hypertension Status: Chronic (8) Pneumonia Status: Acute (9) Pneumonia Status: Acute (10) Respiratory failure Status: Acute (11) RLQ abdominal pain Status: Acute (12) Shortness of breath Status: Acute Medical Problems: (1) Acute appendicitis with rupture (2) Anemia (3) Benign hypertension with ESRD (end-stage renal disease) (4) Diabetes (5) ESRD (end stage renal disease) on dialysis (6) Hyperparathyroidism due to ESRD on dialysis (7) Hypertension (8) Liver failure (9) Pulmonary edema (10) Renal failure (11) Secondary hyperparathyroidism of renal origin (12) Von Willebrand disease Family History No pertinent family history Social History Smoking Status: Never Smoker Smokeless Tobacco Use: No Alcohol Use: none Drug Use: none Marital Status: Housing Status: lives with family Occupation Status: retired Allergies Coded Allergies: Adhesives (Verified Allergy, Intermediate, RASH, 01/02/18) Amoxicillin (Verified Allergy, Intermediate, RASH, 01/02/18) Ampicillin (Verified Allergy, Intermediate, RASH, 01/02/18) Erythromycin (Verified Allergy, Intermediate, RASH, 01/02/18) Etodolac (Verified Allergy, Intermediate, RASH, 01/02/18) Penicillins (Verified Allergy, Intermediate, RASH, 01/02/18) Sulfa Antibiotics (Verified Allergy, Intermediate, RASH, 01/02/18) Aspirin (Verified Allergy, Mild, RASH, 01/02/18) Sevelamer (Verified Allergy, Mild, rash, 01/02/18) Current Inpatient Medications Current Inpatient Medications Medications (Trade) Dose Ordered Sig/Eduardo Route Start Time Stop Time Status Last Admin Dose Admin Miscellaneous Information (Consult Glycemic Management Pharmacy) 1 ea UD PRN N/A 01/02/18 13:09 02/01/18 13:08 Ondansetron HCl (Zofran Inj) 4 mg Q6H PRN IV 01/02/18 12:30 02/01/18 12:29 01/03/18 08:58 4 MG Glucose (Glucose 40% Gel) 15-30 GRAMS 15 GRAMS... UD PRN PO 01/02/18 13:15 02/01/18 13:14 Glucose (Glucose Chew Tab) 4-8 Tablets 4 Tabl... UD PRN PO 01/02/18 13:15 02/01/18 13:14 Dextrose (Dextrose 50% 50ML Syringe) 25-50ML OF 50% DW IV FOR... UD PRN IV 01/02/18 13:15 02/01/18 13:14 01/04/18 04:00 25 ML Glucagon (Glucagon Inj) 1 mg UD PRN SQ 01/02/18 13:15 02/01/18 13:14 Morphine Sulfate (MoRPHine SULFATE INJ) 1 mg Q4 PRN IV 01/02/18 13:15 01/16/18 13:14 01/05/18 06:35 1 MG Hydralazine HCl (HydrALAZINE INJ) 10 mg Q8 PRN IV. 01/02/18 13:15 02/01/18 13:14 Ciprofloxacin (Consult) 1 ea UD PRN N/A 01/02/18 13:15 02/01/18 13:14 Metronidazole 500 mg/Prmx 100 ml @ 100 mls/hr Q8H IV 01/02/18 22:00 01/12/18 21:59 01/05/18 13:37 100 MLS/HR Miscellaneous Information 1 ea UD PRN N/A 01/02/18 13:30 02/01/18 13:29 Acetaminophen 650 mg/Empty Bag 65 ml @ 260 mls/hr Q6H PRN IV 01/04/18 00:30 02/03/18 00:29 01/05/18 09:54 260 MLS/HR Metoprolol Tartrate (Lopressor Tab) 25 mg BID PO 01/04/18 09:00 02/03/18 08:59 Sodium Chloride 1,000 ml @ 50 mls/hr Q20H IV 01/05/18 08:45 02/04/18 08:44 01/05/18 08:53 50 MLS/HR Heparin Sodium (Porcine) (Heparin Iv Bolus) 2,000 unit TODAY@0600 IV 01/06/18 06:00 01/06/18 06:01 Heparin Sodium (Porcine) (Heparin Iv Bolus) 500 unit TODAY@0600,0700,0800 IV 01/06/18 06:00 01/06/18 18:00 Ciprofloxacin/ Dextrose 200 mg/ Prmx 100 ml @ 100 mls/hr Q24H IV 01/05/18 10:30 01/12/18 23:59 01/05/18 11:00 100 MLS/HR Insulin Aspart (novoLOG ASPART) SLIDING SCALE Q6 SC 01/05/18 12:00 02/04/18 11:59 01/05/18 13:37 1 UNITS Insulin Glargine (Lantus Solostar Pen) DAILY SC 01/06/18 09:00 02/05/18 08:59 Review of Systems All systems were reviewed and are negative except as per HPI Physical Exam Date Time Temp Pulse Resp B/P (MAP) Pulse Ox O2 Delivery O2 Flow Rate FiO2 01/05/18 14:33 36.6 83 18 105/61 (76) 96 Nasal Cannula 1.0 01/05/18 11:15 36.3 82 18 106/60 (75) 96 Nasal Cannula 1.0 01/05/18 07:28 36.6 84 20 97/53 (68) 95 Nasal Cannula 1.0 01/05/18 04:00 Nasal Cannula 2.0 01/05/18 03:48 36.6 80 20 103/58 (73) 98 1.5 01/05/18 00:08 36.5 75 18 99/60 (73) 99 1.5 01/05/18 00:00 Nasal Cannula 2.0 01/04/18 20:00 Nasal Cannula 2.0 01/04/18 19:13 36.4 80 18 101/64 (76) 99 1.0 01/04/18 16:00 Nasal Cannula 2.0 01/04/18 15:27 36.4 83 18 100/61 (74) 99 Nasal Cannula 1.5 General Appearance: WD/WN, no apparent distress Head: normocephalic, atraumatic Eyes: normal inspection, EOMI, sclerae normal ENT: normal ENT inspection, pharynx normal Neck: supple, no adenopathy, thyroid normal, trachea midline Respiratory/Chest: chest non-tender, lungs clear, normal breath sounds, no respiratory distress Cardiovascular: regular rate, rhythm, no gallop, no murmur Abdomen/GI: normal bowel sounds, soft, no organomegaly, + tenderness (Right lower quadrant) Back: normal inspection, no CVA tenderness Extremities/Musculoskelatal: normal inspection, no calf tenderness, normal capillary refill, non-tender Neurologic/Psych: alert, oriented x 3 Skin: normal color, warm/dry, no rash Lymphatic: no adenopathy Laboratory Results RUN DATE: 01/04/18 [facility] LAB PAGE 1 RUN TIME: 1159 Specimen Inquiry PAT[facility]: [id number] LOC: HeidiMS2W U # : [id number] AGE/SX: 67/F ROOM: [facility] REG : 01/02/[address]: Jacques Blackwell MD : 1950 BED: 1 DIS : STATUS: ADM IN TLOC: SPEC #: [id number] PAT: 01/02/18 STATUS: COMP REQ #: [id number] RECD: 01/02/[address] [facility] DR: Melissa Mendosa M.D. SOURCE: BLOOD ENTR: 01/02/18-[address]: Scottie Ryan M.D. [facility]: Sixto Bella M.D., Jill ., P.A.-C. Palepu, Rajendra P., MD Roe, Kevin, D.O. Rogusky, Edwin, M.D. Yuskevich, Brian P., MD ORDERED: BLOOD CULTURE Procedure Result Verified Site BLD CULT Final 01/04/18-7039 Organism 1 COAG NEG STAPH NOT LUGDUNENSIS SENS NO SENSITIVITY TO FOLLOW One set of two positive. Isolation does not necessarily mean infection. No susceptibility tests performed. Contact microbiology laboratory ([phone]) if further studies are indicated. Phoned Positive Blood Culture Gram Stain Report to KIAN WITT on 01/03/18 At 1314 By ANN. Results were verbalized back to ANN. Last 24 Hours Test 01/04/18 16:23 01/04/18 20:26 01/05/18 00:09 01/05/18 04:02 Bedside Glucose 150 mg/dl 171 mg/dl 168 mg/dl 157 mg/dl Test 01/05/18 06:43 01/05/18 07:37 01/05/18 11:27 White Blood Count 10.46 K/uL Red Blood Count 3.72 M/uL Hemoglobin 11.3 g/dL Hematocrit 35.6 % Mean Corpuscular Volume 95.7 fL Mean Corpuscular Hemoglobin 30.4 pg Mean Corpuscular Hemoglobin Concent 31.7 g/dl RDW Standard Deviation 56.3 fL RDW Coefficient of Variation 16.2 % Platelet Count 233 K/uL Mean Platelet Volume 9.0 fL Nucleated RBC Absolute Count (auto) 0.02 K/uL Nucleated Red Blood Cells % 0.2 % Venous Blood pH 7.38 Sodium Level 134 mmol/L Potassium Level 4.1 mmol/L Chloride Level 95 mmol/L Carbon Dioxide Level 26 mmol/L Anion Gap 13.0 mmol/L Blood Urea Nitrogen 49 mg/dl Creatinine 4.35 mg/dl Est Creatinine Clear Calc Drug Dose 9.8 ml/min Estimated GFR () 11.3 Estimated GFR (Non- 9.8 BUN/Creatinine Ratio 11.2 Random Glucose 168 mg/dl Calcium Level 8.7 mg/dl Phosphorus Level 6.8 mg/dl Magnesium Level 2.0 mg/dl Total Bilirubin 0.5 mg/dl Direct Bilirubin 0.2 mg/dl Aspartate Amino Transf (AST/SGOT) 102 U/L Alanine Aminotransferase (ALT/SGPT) 81 U/L Alkaline Phosphatase 134 U/L Total Protein 5.5 gm/dl Albumin 1.5 gm/dl Globulin 4.0 gm/dl Albumin/Globulin Ratio 0.4 Bedside Glucose 143 mg/dl 154 mg/dl ONLY CLINICAL HISTORY: 67 years-old Female presenting with abd pain. TECHNIQUE: Multidetector CT of the abdomen and pelvis was performed after the administration of oral contrast only. IV contrast: None. A dose lowering technique was used consistent with the principles of ALARA (as low as reasonably achievable). COMPARISON: 08/25/2017. CT DOSE (mGy.cm): The estimated cumulative dose is 315.14 mGycm. FINDINGS: Lifestyle Coordinator topogram: Gaseous distention of small and large bowel. Lung bases: Chronic dependent and peribronchovascular consolidation in the lower lobes with slight lower lobe volume loss suggested. Multichamber enlargement of the heart. Coronary artery calcification. Small left pleural effusion. Liver: Normal morphology. Density borderline for hepatic steatosis. Hepatic arterial calcification noted. Biliary: No gross biliary ductal dilatation allowing for noncontrast technique. Gallbladder contains gallstones. Pancreas: Numerous coarse calcifications in the pancreatic parenchyma consistent with a history of chronic pancreatitis. Trophic pancreatic parenchyma. Intermittent dilatation of the pancreatic duct likely relates to chronic pancreatitis. Spleen: Normal noncontrast appearance. Adrenal glands: Poorly visualized. Kidneys and ureters: Atrophic [place] kidneys bilaterally. Bladder: Circumferentially thick-walled though under distended. Pelvic organs: Normal noncontrast appearance. Extensive uterine vascular calcification, which may imply underlying diabetes. Bowel: Fluid in the colon suggests a diarrheal state. Diffuse colonic wall thickening most severe in the sigmoid colon and rectum. Moderate stool burden in the ascending colon. The cecum is poorly defined. Suggestion of a loculated fluid collection along the inferior posterior aspect of the cecum (series 3 image 314), poorly defined in the absence of contrast but possibly extraperitoneal. Significant proximal small bowel dilation, which taper smoothly upstream. The transition point appears to be located in the superior pelvis, where there is fecal material contained within the small bowel (series 3 image 333). Distal small bowel is decompressed and may be thick-walled. Peritoneal cavity: Extensive mesenteric edema. Peritoneal thickening suggested. Trace abdominal pelvic ascites. No free intraperitoneal gas. Lymph nodes: No gross lymphadenopathy allowing for noncontrast technique. Vasculature: Atherosclerosis of the normal caliber abdominal aorta. Abdominal wall: Extensive body wall edema. Musculoskeletal: Severe degenerative changes of the hips, right greater than left. Assessment & Plan 67-year-old female with complex right lower quadrant collection along with probable small bowel obstruction. Coagulase negative Staph in blood culture likely read represents contaminant. Would recommend addition of vancomycin for gram-positive coverage given penicillin allergies, and await decision regarding further need for surgical or interventional radiologic intervention. Will follow.
[2018-01-05] MEDS ORDERED: VANCOMYCIN CONSULT ACTIVE PRN (16:30)
--- NOTE | 2018-01-05 16:32 | Progress Note ---
Internal Med Progress Note Date of Service: Jan 05, 2018. Provider Documentation: SUBJECTIVE: still has abdominal pain but feeling better afebrile no nausea no sob family in room OBJECTIVE: Vital Signs-as noted below Exam: General-alert and oriented. Not in distress ENT-Normal hearing Neck-no neck masses Lungs-cta b/l no wheezing or crackles Heart-S1 and S2 heard regular rate and rhythm no murmurs Abdomen-Soft bowel sounds absent diffuse mild tender mild distension Extremities-no edema no erythema Neuro-alert and awake moves extremities Lab data as noted below. ASSESSMENT & PLAN: This is a 67yo F with a PMH of ESRD on dialysis, Type 1 DM, HTN and other medical problems listed below who presents after a fall this AM and was found to have a left humeral neck fracture, SBO and hyperglycemia. Small bowel obstruction: presented with Abd pain, nausea x 6 days. Last BM 2 days ago H/o medically managed appendicitis with rupture in Aug 2017 possible sepsis? with elevated wbc, lactic acid 2.7, possible peritonitis or abscess on ct scan and sbo on ct scan Has been following with Dr. Ryan of general surgery Ng tube placed started on Cipro and Flagyl iv fluids lactic acid normalized NPO surgery on board and appreciate inputs If deteriorates plan to transfer to tertiary care for IR for possible abscess drainage to continue iv vanco to cover gm positives as per ID bacteremia one bottle repeat cx negative mostly contaminant L Humeral neck fracture: Fell on shoulder XR with comminuted minimally displaced and impacted fracture of the neck of the attending addendum left humerus Shoulder immobilized in splint -Ortho consulted and recommends conservative management no complaints today Hyperglycemia 2/2 DM I: Non-compliant with insulin, infection hyperglycemia on presentation received 10 units of iv insulin currently on lantus and iss 157/168/143/154 appreciate pharmacy help. ESRD on dialysis: Dialysis MWF Follows with [facility] nephro Usually takes 80mg PO lasix on non-dialysis days which id held as patient is npo nephro consulted and appreciate inputs HTN: Holding home agents Hydralazine 10mg IV Q8 for SBP >160 DVT Ppx: SCDs for now. Code status: FULL per admissions. PCP: Jena Dispo:to be determined Vital Signs: Date Time Temp Pulse Resp B/P (MAP) Pulse Ox O2 Delivery O2 Flow Rate FiO2 01/05/18 14:33 36.6 83 18 105/61 (76) 96 Nasal Cannula 1.0 01/05/18 12:00 Nasal Cannula 2.0 01/05/18 11:15 36.3 82 18 106/60 (75) 96 Nasal Cannula 1.0 01/05/18 08:00 Nasal Cannula 2.0 01/05/18 07:28 36.6 84 20 97/53 (68) 95 Nasal Cannula 1.0 01/05/18 04:00 Nasal Cannula 2.0 01/05/18 03:48 36.6 80 20 103/58 (73) 98 1.5 01/05/18 00:08 36.5 75 18 99/60 (73) 99 1.5 01/05/18 00:00 Nasal Cannula 2.0 01/04/18 20:00 Nasal Cannula 2.0 01/04/18 19:13 36.4 80 18 101/64 (76) 99 1.0 Lab Results: Results Past 24 Hours Test 01/04/18 16:23 01/04/18 20:26 01/05/18 00:09 01/05/18 04:02 Range/Units Bedside Glucose 150 171 168 157 70-90 mg/dl Test 01/05/18 06:43 01/05/18 07:37 01/05/18 11:27 Range/Units White Blood Count 10.46 4.8-10.8 K/uL Red Blood Count 3.72 4.2-5.4 M/uL Hemoglobin 11.3 12.0-16.0 g/dL Hematocrit 35.6 37-47 % Mean Corpuscular Volume 95.7 80-100 fL Mean Corpuscular Hemoglobin 30.4 25-34 pg Mean Corpuscular Hemoglobin Concent 31.7 32-36 g/dl RDW Standard Deviation 56.3 36.4-46.3 fL RDW Coefficient of Variation 16.2 11.5-14.5 % Platelet Count 233 130-400 K/uL Mean Platelet Volume 9.0 7.4-10.4 fL Nucleated RBC Absolute Count (auto) 0.02 0-0 K/uL Nucleated Red Blood Cells % 0.2 % Venous Blood pH 7.38 7.36-7.41 Sodium Level 134 136-145 mmol/L Potassium Level 4.1 3.5-5.1 mmol/L Chloride Level 95 98-107 mmol/L Carbon Dioxide Level 26 21-32 mmol/L Anion Gap 13.0 3-11 mmol/L Blood Urea Nitrogen 49 7-18 mg/dl Creatinine 4.35 0.60-1.20 mg/dl Est Creatinine Clear Calc Drug Dose 9.8 ml/min Estimated GFR () 11.3 Estimated GFR (Non- 9.8 BUN/Creatinine Ratio 11.2 10-20 Random Glucose 168 70-99 mg/dl Calcium Level 8.7 8.5-10.1 mg/dl Phosphorus Level 6.8 2.5-4.9 mg/dl Magnesium Level 2.0 1.8-2.4 mg/dl Total Bilirubin 0.5 0.2-1 mg/dl Direct Bilirubin 0.2 0-0.2 mg/dl Aspartate Amino Transf (AST/SGOT) 102 15-37 U/L Alanine Aminotransferase (ALT/SGPT) 81 12-78 U/L Alkaline Phosphatase 134 45-117 U/L Total Protein 5.5 6.4-8.2 gm/dl Albumin 1.5 3.4-5.0 gm/dl Globulin 4.0 2.5-4.0 gm/dl Albumin/Globulin Ratio 0.4 0.9-2 Bedside Glucose 143 154 70-90 mg/dl
[2018-01-05] MEDS ORDERED: VANCOMYCIN IV 1,000 MG in SODIUM CHLORIDE 0.9% 250ML 250 ML IV SCH (21:00)
[2018-01-06] VITALS (12 sets, daily range): BP systolic 89–106; BP diastolic 51–61; PULSE 69–83; TEMP 36.5–37.1; O2SAT 90–98; Ht 157.5 cm; Wt 50.6 kg
[2018-01-06] MEDS: MoRPHine SULFATE 2 MG/ML CARP IV PRN (02:33)
[2018-01-06] MEDS: ACETAMINOPHEN IV 650 MG in EMPTY BAG 0 ML IV PRN (04:26)
[2018-01-06 04:47] LABS: HEMATOCRIT 32.2 % (37-47); HEMOGLOBIN 10.1 g/dL (12.0-16.0); MEAN CELL VOLUME 95.3 fL (80-100); MEAN CORPUSCULAR HEMOGLOBIN 29.9 pg (25-34); MEAN CORPUSCULAR HGB CONC 31.4 g/dl (32-36); MEAN PLATELET VOLUME 9.1 fL (7.4-10.4); PLATELET COUNT 235 K/uL (130-400); RED CELL DISTRIBUTION WIDTH CV 16.4 % (11.5-14.5); RED CELL DISTRIBUTION WIDTH SD 56.9 fL (36.4-46.3)
[2018-01-06 05:19] LABS: CREATININE 4.94 mg/dl (0.60-1.20)
[2018-01-06] MEDS: SODIUM CHLORIDE 0.9% 1000ML 1,000 ML IV SCH (05:54)
[2018-01-06] MEDS: METRONIDAZOLE 500 MG/ NSS IV SCH ×2 (05:55→14:46)
[2018-01-06] MEDS: INSULIN ASPART 100 UNITS/ML 3 ML PEN SC SCH ×4 (05:55→18:00)
[2018-01-06] MEDS ORDERED: HEPARIN SOD (PORCINE) 1000 UNIT/ML 10 ML VIAL IV SCH ×2 (06:00)
[2018-01-06] MEDS: METOPROLOL TARTRATE 25 MG TAB PO SCH (08:19)
[2018-01-06] MEDS ORDERED: INSULIN GLARGINE SOLOSTAR 100 UNITS/ML 3 ML PEN SC SCH (09:00)
[2018-01-06 10:46] LABS: INR 1.6 (0.9-1.1)
[2018-01-06] MEDS ORDERED: MIDAZOLAM HCL 1 MG/ML 2ML VIAL ONE (11:05)
[2018-01-06] MEDS ORDERED: FENTANYL CITRATE INJ 50 MCG/1 ML 2 ML VIAL ONE (11:05)
[2018-01-06] MEDS ORDERED: HEPARIN SOD (PORCINE) 5000 UNIT/ML 1 ML VIAL ONE (11:05)
[2018-01-06 11:07] LABS: CALCIUM 8.2 mg/dl (8.5-10.1); CREATININE 5.12 mg/dl (0.60-1.20); POTASSIUM 4.1 mmol/L (3.5-5.1)
--- NOTE | 2018-01-06 11:09 | Medical Consult ---
Consultation Note Date of Service Jan 06, 2018. Consultation Note Chief Complaint: ESRD, thrombosed access History of Present Illness The patient is a 65 year old female with multiple medical problems including chronic renal disease and von willebrand's disease, admitted with possible sepsis with an appendiceal abscess. She also fractured her left shoulder. Today she was found to have a clotted left upper arm fistula. She is in need of dialysis. Pt denies OLIVARES, fever, chills, chest pain, SOB, abd pain, N/V, rest pain, claudication, other complaints. Allergies Adhesives (Verified Allergy, Intermediate, RASH, 10/08/15) Amoxicillin (Verified Allergy, Intermediate, RASH, 10/08/15) Ampicillin (Verified Allergy, Intermediate, RASH, 10/08/15) Erythromycin (Verified Allergy, Intermediate, RASH, 10/08/15) Etodolac (Verified Allergy, Intermediate, RASH, 10/08/15) Penicillins (Verified Allergy, Intermediate, RASH, 10/08/15) Sulfa Antibiotics (Verified Allergy, Intermediate, RASH, 10/08/15) Aspirin (Verified Allergy, Mild, RASH, 10/08/15) Meds: See med list Surgical / Medical History Hx Cardiac Surgery: No Hx Abdominal Surgery: No Hx Cancer Surgery: No Hx Thoracic Surgery: No Hx Orthopedic: No Hx Urinary Tract Surgery: No HX Other Surgery: No Past Medical/Surgical History: Diabetes, Hypertension, Kidney Disease Family History No pertinent family history Social History Smoking Status: Never Smoker Hx Tobacco Use In Past Year?: No Hx Alcohol Use - Type & Amnt: No Hx Substance Use -Type & Amnt: No Review of Systems Constitutional: + malaise, No chills Skin: No change in color Eyes: No visual changes ENMT: No sore throat Respiratory: No DAVID, No cough, No hemoptysis, No short of breath Cardiovascular: No chest pain, No edema, No intermittent claudication, No palpitations, No syncope Gastrointestinal: + nausea, No abdominal pain, No vomiting Genitourinary - Female: No dysuria, No hematuria Neurologic: + weakness, No dizziness, No headache, No lethargy, No numbness, No seizures Physical Exam: Constitutional: General Apperance: well-nourished, well-developed Level of Distress: NAD, Psychiatric: Mental Status: active & alert, normal mood, normal affect Orientation: oriented except where noted, to time, to place, to person Memory: recent memory normal, remote memory normal Head: normocephalic, atraumatic Eyes: EOM: EOMI ENMT: normal ENT inspection, hearing grossly normal Neck: supple, trachea midline Lungs: Respiratory effort: no dyspnea Auscultation: breath sounds normal, no wheezing, no rales/crackles, no rhonchi Cardiovascular: Apical Impulse: not displaced Heart Auscultation: RRR, no rubs, no gallops Peripheral Pulses: Pulses: full and equal, in all extremities except if noted Bruits: none appreciated Carotid Pulse: normal on the left, normal on the right Brachial Pulses: normal on the left, normal on the right Radial Pulse: normal on the left, normal on the right Femoral Pulse: normal on the left, normal on the right Posterior Tibialis Pulse: decreased on the left, decreased on the right Dorsalis Pedis Pulse: decreased on the left, decreased on the right Abdomen: Bowel Sounds: normal Inspection & Palpation: soft, non-distended, no tenderness, guarding & rebound Musculoskeletal: normal strength (5/5 throughout), normal tone Extremities: Upper Right: no cyanosis, no edema, no varicosities Upper Left: no cyanosis, no edema, no varicosities, proximal fistula with pulse, no thrill Lower Right: no cyanosis, no edema, no varicosities Lower Left: no cyanosis, no edema, no varicosities Neurologic: Cranial Nerves: grossly intact Sensation: grossly intact ASSESSMENT and PLAN: Imp: ESRD Clotted left upper arm fistula Plan: Permcath for dialysis was recommended. I have discussed the risks options and benefits of the procedure with the patient. The patient understands the risks options and benefits and agrees to the procedure.
--- NOTE | 2018-01-06 11:12 | Pre Sedation Assessment ---
Pre Sedation Assessment General Date of Sedation: Jan 06, 2018. Vital Signs Past 12 Hours Date Time Temp Pulse Resp B/P (MAP) Pulse Ox O2 Delivery O2 Flow Rate FiO2 01/06/18 08:58 37.1 81 96/51 (66) 01/06/18 08:26 76 98/57 (71) 01/06/18 06:51 36.7 75 18 99/61 (74) 96 2.0 01/06/18 04:17 36.6 83 20 97/57 (70) 98 2.0 01/06/18 04:00 Nasal Cannula 2.0 01/06/18 00:00 Nasal Cannula 2.0 01/05/18 23:32 36.7 80 18 98/57 (71) 98 Nasal Cannula 1.0 Review Cardiovascular: regular rate, rhythm Lungs: lungs clear, no respiratory distress Pre-Sedation Airway Assessment Smoking Status: Never Smoker Hx of Sleep Apnea: No Hx of difficult intubation: No Short Thick Neck: No Thyro-mental Distance: > 3 Finger Breadths Oral Cavity: Dental Abnormalities Mallampati Classification: Class I ASA Classification: Class III NPO Status Date of Last Intake of Fluids: Jan 02, 2018 Time of Last Intake of Fluids: 08:00 Date of Last Intake of Solids: Jan 02, 2018 Time of Last Intake of Solids: 08:00 Procedure Planning Contraindications for Sedation: None Current Medications Reviewed: Yes Notes The planned sedation has been discussed with the patient. Informed Consent was obtained. I have identified the patient, determined the appropriateness of sedation and have assessed the patient immediately prior to the procedure. All medicine(s) and interventions are by my order.
[2018-01-06] MEDS ORDERED: MIDAZOLAM HCL 1 MG/ML 2ML VIAL IV ONE (11:41)
[2018-01-06] MEDS ORDERED: HEPARIN SOD (PORCINE) 5000 UNIT/ML 1 ML VIAL IV ONE (11:52)
[2018-01-06] MEDS ORDERED: LIDOCAINE HCL 1% 20 ML VIAL INJ ONE (11:52)
--- NOTE | 2018-01-06 12:00 | [facility] Post Operative Brief Note ---
Immediate Operative Summary Operative Date Jan 06, 2018. Pre-Operative Diagnosis ESRD Thrombosed left upper arm fistula Post-Operative Diagnosis ESRD Thrombosed left upper arm fistula Procedure(s) Performed Perm Catheter Placement Right Jugular Approach Ultrasound Localization of Right Jugular Vein Fluroscopy for Comfirmation Moderate sedation 1141- 1200 Surgeon Felecia Senior Software Analyst Surgeon(s) Monique Estimated Blood Loss 5 Findings Consistent with Post-Op Diagnosis Specimens None Drains None Anesthesia Type IV Sedat Cons RN Only Complication(s) none Disposition Accompanied Pt To Recover: no Disposition:
--- NOTE | 2018-01-06 12:10 | [facility] Operative Report ---
Operative Report Operative Date Jan 06, 2018. Pre-Operative Diagnosis ESRD Thrombosed left upper arm fistula Post-Operative Diagnosis ESRD Thrombosed left upper arm fistula Procedure(s) Performed Perm Catheter Placement Right Jugular Approach Ultrasound Localization of Right Jugular Vein Fluroscopy for Comfirmation Moderate sedation 1141- 1200 Surgeon Felecia Director Data Processing Surgeon(s) Monique Estimated Blood Loss 5 Specimens None Drains None 19 cm tunnelled hemodialysis line in R IJ Anesthesia Type IV Sedat Cons RN Only Complication(s) none Disposition no Indications 67 y/o female with ESRD on HD whose fistula was clotted. She needed hemodialysis access and was recommended to undergo placement of R IJ perm cath. Description of Procedure Patient was taken to the angio suite and placed in the supine position. The right side of the neck and chest wall were prepped and draped in a sterile manner. Local anesthesia was then administered to the appropriate areas of the neck and chest wall. Ultrasound was then used to locate the right internal jugular vein. The vein compressed easily, had no filing defects, and was patent. The vein was then punctured under direct ultrasound imaging. A guidewire was then passed centrally under fluoroscopic imaging. A stab wound was then made in the anterior chest wall and a 19 cm permcath was passed from the stab wound on the chest wall to the puncture site on the neck. The puncture site was then dilated till the 14Fr peel away sheath was inserted. The permcath was then inserted through the sheath to a central position in the distal superior vena cava. The peel away sheath was then removed. The catheter was then sutured in place using nylon sutures. The puncture was then closed using a 4-0 Vicryl subcuticular suture. Dermabond was used for a dressing on the puncture site. Both ports aspirated and flushed easily and were then packed with heparin. A sterile dressing was applied to the catheter. The patient left the angio suite in good condition and tolerated the procedure well. I, Dr. Izquierdo was present and scrubbed for the entire procedure. I attest to the content of the Intraoperative Record and any orders documented therein. Any exceptions are noted below.
--- NOTE | 2018-01-06 12:24 | Post Sedation Assessment ---
Post Sedation Assessment General Date of Sedation Jan 06, 2018. Vital Signs: Vital Signs Past 12 Hours Date Time Temp Pulse Resp B/P (MAP) Pulse Ox O2 Delivery O2 Flow Rate FiO2 01/06/18 12:15 78 18 85/42 92 Room Air 01/06/18 12:10 92 Room Air 01/06/18 12:05 78 16 90/49 100 Oxymask 2 01/06/18 12:00 78 18 89/49 100 Oxymask 2 01/06/18 11:56 100 Oxymask 2 01/06/18 11:51 100 Oxymask 2 01/06/18 11:46 Oxymask 2 01/06/18 11:41 79 16 101/51 100 Oxymask 2 01/06/18 11:36 82 16 104/54 100 Oxymask 2 01/06/18 08:58 37.1 81 96/51 (66) 01/06/18 08:26 76 98/57 (71) 01/06/18 08:00 Nasal Cannula 2.0 01/06/18 06:51 36.7 75 18 99/61 (74) 96 2.0 01/06/18 04:17 36.6 83 20 97/57 (70) 98 2.0 01/06/18 04:00 Nasal Cannula 2.0 Post Procedure Recovery Score Activity: (2) Moves 4 extremities * Respiration: (2) Deep breath/cough Circulation: (2) +/-20% PreAnes Value Consciousness: (2) Fully Awake Oxygen Saturation: (2) > 92% On Room Air Post Anesthesia Score: 10 Discharge Sedation Level of Care: Fast Track Phase II Post Sedation Plan On clinical assessment, the patient appears to have tolerated the sedation without complications. Patient is recovering as anticipated. Patient will continue to be monitored by nursing and may be discharged when sedation discharge criteria are met per below protocol. Upon Completions of procedure and additional 15 minutes continue every 5 minute vital signs and the P.A.R. score; then discharge to a Phase I or Fast Track to Phase II per the following guidelines: * Discharge Patient to appropriate Phase II area if PAR is 8 or greater or return to pre- procedure baseline. The post - procedure orders will be as directed. * If PAR score is less than 8 or not return to pre-procedure baseline then patient will follow Phase I monitoring till PAR is reached for Phase II. The Phase I may be done in procedure room or may call to secure a Phase I area. * If naloxone or flumazenil are used for reversal, hold in Phase I for an additional 60 -120 minutes before discharge to Phase II. Please call the Sedation Physician to re-evaluate and complete post-note for discharge to Phase II area. Do NOT discharge from procedure sedation or Phase 1 until post- sedation evaluation note is complete by procedure /sedation MD Sedation Discharge Instructions to be given to the patient at discharge to home.
[2018-01-06] MEDS: CIPROFLOXACIN / D5W 200 MG in PREMIXED IN D5W 100 ML IV SCH (12:47)
--- NOTE | 2018-01-06 14:34 | Surgery Progress Note ---
Surgery Progress Note Date of Service Jan 06, 2018. Subjective Post OP Day: HD # 4 Feeling okay, still groggy from surgery (placement of dialysis catheter this am) left lower sided abdominal pain Passing gas, bowel movement last night Objective Vital Signs: Date Time Temp Pulse Resp B/P (MAP) Pulse Ox O2 Delivery O2 Flow Rate FiO2 01/06/18 13:15 36.5 78 18 91/55 (67) 92 Room Air 01/06/18 12:55 36.5 81 18 89/54 (66) 91 Room Air 01/06/18 12:35 36.6 79 18 95/56 (69) 93 Room Air 01/06/18 12:15 78 18 85/42 92 Room Air 01/06/18 12:10 92 Room Air 01/06/18 12:05 78 16 90/49 100 Oxymask 2 01/06/18 12:00 78 18 89/49 100 Oxymask 2 01/06/18 11:56 100 Oxymask 2 01/06/18 11:51 100 Oxymask 2 01/06/18 11:46 Oxymask 2 01/06/18 11:41 79 16 101/51 100 Oxymask 2 01/06/18 11:36 82 16 104/54 100 Oxymask 2 01/06/18 08:58 37.1 81 96/51 (66) 01/06/18 08:26 76 98/57 (71) 01/06/18 08:00 Nasal Cannula 2.0 01/06/18 06:51 36.7 75 18 99/61 (74) 96 2.0 01/06/18 04:17 36.6 83 20 97/57 (70) 98 2.0 01/06/18 04:00 Nasal Cannula 2.0 01/06/18 00:00 Nasal Cannula 2.0 01/05/18 23:32 36.7 80 18 98/57 (71) 98 Nasal Cannula 1.0 01/05/18 20:00 Nasal Cannula 2.0 01/05/18 19:22 36.7 82 18 100/59 (73) 95 Nasal Cannula 1.0 01/05/18 16:00 Nasal Cannula 2.0 01/05/18 14:33 36.6 83 18 105/61 (76) 96 Nasal Cannula 1.0 General Appearance: no apparent distress, + thin Head: normocephalic, atraumatic Neck: trachea midline Respiratory/Chest: no respiratory distress, no accessory muscle use Abdomen: soft, no organomegaly, no pulsatile mass, + tenderness (RLQ on mild palpation, positive guarding) Laboratory Results: Results Past 24 Hours Test 01/05/18 15:57 01/05/18 19:57 01/05/18 23:54 01/06/18 04:08 Range/Units Bedside Glucose 149 138 134 135 70-90 mg/dl Test 01/06/18 04:35 01/06/18 05:54 01/06/18 08:17 01/06/18 10:22 Range/Units White Blood Count 13.00 4.8-10.8 K/uL Red Blood Count 3.38 4.2-5.4 M/uL Hemoglobin 10.1 12.0-16.0 g/dL Hematocrit 32.2 37-47 % Mean Corpuscular Volume 95.3 80-100 fL Mean Corpuscular Hemoglobin 29.9 25-34 pg Mean Corpuscular Hemoglobin Concent 31.4 32-36 g/dl RDW Standard Deviation 56.9 36.4-46.3 fL RDW Coefficient of Variation 16.4 11.5-14.5 % Platelet Count 235 130-400 K/uL Mean Platelet Volume 9.1 7.4-10.4 fL Venous Blood pH 7.35 7.36-7.41 Creatinine 4.94 5.12 0.60-1.20 mg/dl Est Creatinine Clear Calc Drug Dose 8.6 8.3 ml/min Estimated GFR () 9.7 9.3 Estimated GFR (Non- 8.4 8.0 Random Vancomycin Level 17.8 mcg/ml Bedside Glucose 136 110 70-90 mg/dl Prothrombin Time 16.8 9.0-12.0 SECONDS Prothromb Time International Ratio 1.6 0.9-1.1 Sodium Level 136 136-145 mmol/L Potassium Level 4.1 3.5-5.1 mmol/L Chloride Level 99 98-107 mmol/L Carbon Dioxide Level 24 21-32 mmol/L Anion Gap 13.0 3-11 mmol/L Blood Urea Nitrogen 68 7-18 mg/dl BUN/Creatinine Ratio 13.3 10-20 Random Glucose 132 70-99 mg/dl Calcium Level 8.2 8.5-10.1 mg/dl Test 01/06/18 12:51 01/06/18 14:26 Range/Units Bedside Glucose 112 70-90 mg/dl Assessment & Plan SBO History of ruptured acute appendicitis in August 2017 now with recurrent inflammatory process in the right lower quadrant - + bowel function - afebrile - mild increase in leukocytosis of 13K today - 300 NGT output yesterday 24 hours, 100 cc last shift Left humeral neck fracture Clotted Left upper extremity AV fistula Plan: Recommend transfer to tertiary center for possible interventional radiologist to place percutaneous drain for the inflammatory process in the right lower quadrant and increased leukocytosis. Dr. Ryan has discussed with Dr. Blackwell and discussed with transfer center. Accepting hospitalist is Dr. Brandi Hernandez. Continue current medical management until transfer. Dr. Ryan has seen and examined patient, developed assessment and plan.
--- NOTE | 2018-01-06 15:04 | Nephrology Progress Note ---
Nephrology Progress Note Date of Service Jan 06, 2018. Chief Complaint ESRD Subjective Mrs. Turner was seen & examined in her hospital room this morning. HD was attempted this am but unsuccessful due to thrombosed AVF. Patient is agreeable to IJ THC insertion. Vascular surgery has been consulted and HD has been rescheduled for this afternoon. Review of Systems Constitutional: No fever Cardiovascular: No chest pain Respiratory: No dyspnea at rest Abdomen: No pain, No nausea, No vomiting Extremities: No leg edema A complete review of systems was performed. Pertinent positives are noted above. All other systems are negative. Vital Signs Last 8 Hrs Date Time Temp Pulse Resp B/P (MAP) Pulse Ox O2 Delivery O2 Flow Rate FiO2 01/06/18 14:45 36.6 80 18 106/59 (75) 93 Room Air 01/06/18 14:30 36.6 69 18 97/54 (68) 94 01/06/18 14:00 36.6 80 18 93/58 (70) 94 01/06/18 13:30 36.6 76 18 91/55 (67) 90 01/06/18 13:15 36.5 78 18 91/55 (67) 92 Room Air 01/06/18 12:55 36.5 81 18 89/54 (66) 91 Room Air 01/06/18 12:35 36.6 79 18 95/56 (69) 93 Room Air 01/06/18 12:15 78 18 85/42 92 Room Air 01/06/18 12:10 92 Room Air 01/06/18 12:05 78 16 90/49 100 Oxymask 2 01/06/18 12:00 78 18 89/49 100 Oxymask 2 01/06/18 11:56 100 Oxymask 2 01/06/18 11:51 100 Oxymask 2 01/06/18 11:46 Oxymask 2 01/06/18 11:41 79 16 101/51 100 Oxymask 2 01/06/18 11:36 82 16 104/54 100 Oxymask 2 01/06/18 08:58 37.1 81 96/51 (66) 01/06/18 08:26 76 98/57 (71) 01/06/18 08:00 Nasal Cannula 2.0 I & O 24-Hour Column 01/07/18 08:00 Intake Total 731 ml Output Total 75 ml Balance 656 ml Last Recorded Weight Weight (Kilograms): 50.600 Physical Exam General Appearance: no apparent distress Head: normocephalic, atraumatic Eyes: PERRL, EOMI Neck: no adenopathy Respiratory/Chest: lungs clear, no respiratory distress Cardiovascular: regular rate, rhythm Abdomen/GI: soft (RLQ tenderness without guarding) Extremities/Musculoskelatal: no calf tenderness, no pedal edema Neurologic/Psych: no motor/sensory deficits, oriented x 3 Family History No pertinent family history Social History Smokeless Tobacco Use: No Alcohol Use: none Drug Use: none Marital Status: Housing Status: lives with significant other 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 Laboratory Results Past 24 Hours 01/06/18 04:35 01/06/18 04:35 01/06/18 10:22 Test 01/05/18 15:57 01/05/18 19:57 01/05/18 23:54 01/06/18 04:08 Bedside Glucose 149 mg/dl (70-90) 138 mg/dl (70-90) 134 mg/dl (70-90) 135 mg/dl (70-90) Test 01/06/18 04:35 01/06/18 05:54 01/06/18 08:17 01/06/18 10:22 Red Blood Count 3.38 M/uL (4.2-5.4) Mean Corpuscular Volume 95.3 fL (80-100) Mean Corpuscular Hemoglobin 29.9 pg (25-34) Mean Corpuscular Hemoglobin Concent 31.4 g/dl (32-36) RDW Standard Deviation 56.9 fL (36.4-46.3) RDW Coefficient of Variation 16.4 % (11.5-14.5) Mean Platelet Volume 9.1 fL (7.4-10.4) Venous Blood pH 7.35 (7.36-7.41) Est Creatinine Clear Calc Drug Dose 8.6 ml/min 8.3 ml/min Estimated GFR () 9.7 9.3 Estimated GFR (Non- 8.4 8.0 Random Vancomycin Level 17.8 mcg/ml Bedside Glucose 136 mg/dl (70-90) 110 mg/dl (70-90) Prothrombin Time 16.8 SECONDS (9.0-12.0) Prothromb Time International Ratio 1.6 (0.9-1.1) Anion Gap 13.0 mmol/L (3-11) BUN/Creatinine Ratio 13.3 (10-20) Calcium Level 8.2 mg/dl (8.5-10.1) Test 01/06/18 12:51 01/06/18 14:44 Bedside Glucose 112 mg/dl (70-90) Allergies Coded Allergies: Adhesives (Verified Allergy, Intermediate, RASH, 01/02/18) Amoxicillin (Verified Allergy, Intermediate, RASH, 01/02/18) Ampicillin (Verified Allergy, Intermediate, RASH, 01/02/18) Erythromycin (Verified Allergy, Intermediate, RASH, 01/02/18) Etodolac (Verified Allergy, Intermediate, RASH, 01/02/18) Penicillins (Verified Allergy, Intermediate, RASH, 01/02/18) Sulfa Antibiotics (Verified Allergy, Intermediate, RASH, 01/02/18) Aspirin (Verified Allergy, Mild, RASH, 01/02/18) Sevelamer (Verified Allergy, Mild, rash, 01/02/18) Medications Current Inpatient Medications Medications (Trade) Dose Ordered Sig/Eduardo Route Start Time Stop Time Status Last Admin Dose Admin Miscellaneous Information (Consult Glycemic Management Pharmacy) 1 ea UD PRN N/A 01/02/18 13:09 02/01/18 13:08 Ondansetron HCl (Zofran Inj) 4 mg Q6H PRN IV 01/02/18 12:30 02/01/18 12:29 01/03/18 08:58 4 MG Glucose (Glucose 40% Gel) 15-30 GRAMS 15 GRAMS... UD PRN PO 01/02/18 13:15 02/01/18 13:14 Glucose (Glucose Chew Tab) 4-8 Tablets 4 Tabl... UD PRN PO 01/02/18 13:15 02/01/18 13:14 Dextrose (Dextrose 50% 50ML Syringe) 25-50ML OF 50% DW IV FOR... UD PRN IV 01/02/18 13:15 02/01/18 13:14 01/04/18 04:00 25 ML Glucagon (Glucagon Inj) 1 mg UD PRN SQ 01/02/18 13:15 02/01/18 13:14 Morphine Sulfate (MoRPHine SULFATE INJ) 1 mg Q4 PRN IV 01/02/18 13:15 01/16/18 13:14 01/06/18 02:33 1 MG Hydralazine HCl (HydrALAZINE INJ) 10 mg Q8 PRN IV. 01/02/18 13:15 02/01/18 13:14 Ciprofloxacin (Consult) 1 ea UD PRN N/A 01/02/18 13:15 02/01/18 13:14 Metronidazole 500 mg/Prmx 100 ml @ 100 mls/hr Q8H IV 01/02/18 22:00 01/12/18 21:59 01/06/18 14:46 100 MLS/HR Miscellaneous Information 1 ea UD PRN N/A 01/02/18 13:30 02/01/18 13:29 Acetaminophen 650 mg/Empty Bag 65 ml @ 260 mls/hr Q6H PRN IV 01/04/18 00:30 02/03/18 00:29 01/06/18 04:26 260 MLS/HR Metoprolol Tartrate (Lopressor Tab) 25 mg BID PO 01/04/18 09:00 02/03/18 08:59 Sodium Chloride 1,000 ml @ 50 mls/hr Q20H IV 01/05/18 08:45 02/04/18 08:44 01/06/18 05:54 50 MLS/HR Heparin Sodium (Porcine) (Heparin Iv Bolus) 500 unit TODAY@0600,0700,0800 IV 01/06/18 06:00 01/06/18 18:00 Ciprofloxacin/ Dextrose 200 mg/ Prmx 100 ml @ 100 mls/hr Q24H IV 01/05/18 10:30 01/12/18 23:59 01/06/18 12:47 100 MLS/HR Insulin Aspart (novoLOG ASPART) SLIDING SCALE Q6 SC 01/05/18 12:00 02/04/18 11:59 01/05/18 13:37 1 UNITS Insulin Glargine (Lantus Solostar Pen) DAILY SC 01/06/18 09:00 02/05/18 08:59 01/06/18 08:24 3 UNITS Miscellaneous Information (Consult) 1 ea UD PRN N/A 01/05/18 16:30 02/04/18 16:29 Vancomycin HCl 500 mg/Sodium Chloride 110 ml @ 125 mls/hr ONE ONCE IV 01/06/18 16:00 01/06/18 16:52 Impression (1) ESRD (end stage renal disease) on dialysis (2) Hyperparathyroidism due to ESRD on dialysis (3) Shoulder fracture, left (4) SBO (small bowel obstruction) (5) Anemia (6) Diabetes Frieda is a 67-year-old female with ESRD on HD. ESRD has been attributed to microvascular disease, hypertension and diabetes mellitus. Medical history is notable for chronic liver disease, hypertension, diabetes mellitus. The patient has hyperphosphatemia an difficulty tolerating phosphate binders in the past. She was treated conservatively for appendicitis 09/06. She has had chronic abdominal symptoms. Frieda admits to poor adherence to medications at home. She is being treated for possible SBO. NGT to suction and NPO. She may require IR drainage of an abscess near the cecum. Frieda suffered a mechanical fall resulting in a comminuted minimally displaced humeral neck fracture. Recommendations ESRD: -- Vascular surgery to place IJ THC this am. Will postpone HD until afternoon -- HD orders have been entered into EMR and HD RN notified by phone today -- AVF thrombosed -- Continue Bumex as patient continues to make urine. Anemia: -- Chronic and stable -- No need for KISHA Hypertension: -- BP acceptable at this time CKD/MBD: -- Hold PO4 binders while NPO OTHER: -- Await surgical input re: transfer for IR drainage of pericecal fluid collection
--- NOTE | 2018-01-06 15:05 | Discharge Instructions ---
Discharge Instructions Date of Service Jan 06, 2018. Admission Reason for Admission: Diabetes, Left Shoulder Fracture Discharge Discharge Diagnosis / Problem: sbo, extraperitoneal abscess?, Left shoulder fx Discharge Goals Goal(s): Decrease discomfort, Improve function Activity Recommendations Activity Level: Assistance Required . Additional Information Patient informed of condition: Yes Advance Directives: Yes DNR: No Level of Care: Other (Transfering to [facility]) Communicable Disease: No Prognosis: Other (Transferring to [facility]) Oxygen at (LPM): 2lts Doran Catheter: No Instructions / Follow-Up Instructions / Follow-Up FOLLOWUP PER NAT[facility] RECOMMENDATIONS Current Hospital Diet Patient's current hospital diet: Discharge Diet Recommended Diet: N/A (NPO) Procedures Procedures Performed: Perm Catheter Placement Right Jugular Approach Ultrasound Localization of Right Jugular Vein Fluroscopy for Comfirmation Moderate sedation 1141- 1200 Pending Studies Studies pending at discharge: no Physician Orders On Transfer IV Therapy: IV CIPRO OV FLAGYL IV VANCO Laboratory Results Hemoglobin A1c Test 01/03/18 04:12 Range/Units Estimated Average Glucose 169 mg/dl Hemoglobin A1c 7.5 H 4.5-5.6 % Lipid Panel Test 01/01/18 17:15 Range/Units Triglycerides Level 218 H 0-150 mg/dl Cholesterol Level 106 0-200 mg/dl HDL Cholesterol 17 mg/dl Cholesterol/HDL Ratio 6.2 LDL Cholesterol, Calculated 45 mg/dl Medical Emergencies . Who to Call and When: Medical Emergencies: If at any time you feel your situation is an emergency, please call 911 immediately. . Non-Emergent Contact Non-Emergency issues call your: Primary Care Provider . . "Provider Documentation" section prepared by Jacques Blackwell. . Core Measure Problem Core Measures: None
--- NOTE | 2018-01-06 15:56 | Progress Note ---
Internal Med Progress Note Date of Service: Jan 06, 2018. Provider Documentation: SUBJECTIVE: abdominal discomfort same afebrile no nausea s/p perm cath today as her fistula not working plan for [facility] today for further care OBJECTIVE: Vital Signs-as noted below Exam: General-alert and oriented. Not in distress ENT-Normal hearing Neck-no neck masses Lungs-cta b/l no wheezing or crackles Heart-S1 and S2 heard regular rate and rhythm no murmurs Abdomen-Soft bowel sounds absent diffuse mild tender mild distension Extremities-no edema no erythema Neuro-alert and awake moves extremities Lab data as noted below. ASSESSMENT & PLAN: This is a 67yo F with a PMH of ESRD on dialysis, Type 1 DM, HTN and other medical problems listed below who presents after a fall this AM and was found to have a left humeral neck fracture, SBO and hyperglycemia. Small bowel obstruction: presented with Abd pain, nausea x 6 days. Last BM 2 days ago H/o medically managed appendicitis with rupture in Aug 2017 possible sepsis? with elevated wbc, lactic acid 2.7, possible peritonitis or abscess on ct scan and sbo on ct scan Has been following with Dr. Ryan of general surgery Ng tube placed started on Cipro and Flagyl iv fluids lactic acid normalized NPO surgery on board and appreciate inputs If deteriorates plan to transfer to tertiary care for IR for possible abscess drainage to continue iv vanco to cover gm positives as per ID transferring To [facility] today as patient condition has not much improved and WBC going up again..Hemodynamically stable bacteremia one bottle repeat cx negative mostly contaminant on abx as above L Humeral neck fracture: Fell on shoulder XR with comminuted minimally displaced and impacted fracture of the neck of the attending addendum left humerus Shoulder immobilized in splint -Ortho consulted and recommends conservative management no complaints today f/u with ortho on discharge Hyperglycemia 2/2 DM I: Non-compliant with insulin, infection hyperglycemia on presentation received 10 units of iv insulin currently on lantus and iss 136/110/132/112 appreciate pharmacy help. ESRD on dialysis: Dialysis MWF Follows with [facility] nephro Usually takes 80mg PO lasix on non-dialysis days which is held as patient is npo nephro consulted and appreciate inputs s/p perm cath today as fistula was not working. If goes to [facility] before dialysis then to do dialysis at [facility] today HTN: Holding home agents Hydralazine 10mg IV Q8 for SBP >160 DVT Ppx: SCDs for now. Code status: FULL per admissions. PCP: Jena Dispo: Transferring To [facility] Today Vital Signs: Date Time Temp Pulse Resp B/P (MAP) Pulse Ox O2 Delivery O2 Flow Rate FiO2 01/06/18 15:06 36.6 80 18 93 Room Air 01/06/18 14:45 36.6 80 18 106/59 (75) 93 Room Air 01/06/18 14:30 36.6 69 18 97/54 (68) 94 01/06/18 14:00 36.6 80 18 93/58 (70) 94 01/06/18 13:30 36.6 76 18 91/55 (67) 90 01/06/18 13:15 36.5 78 18 91/55 (67) 92 Room Air 01/06/18 12:55 36.5 81 18 89/54 (66) 91 Room Air 01/06/18 12:35 36.6 79 18 95/56 (69) 93 Room Air 01/06/18 12:35 Nasal Cannula 2.0 01/06/18 12:15 78 18 85/42 92 Room Air 01/06/18 12:10 92 Room Air 01/06/18 12:05 78 16 90/49 100 Oxymask 2 01/06/18 12:00 78 18 89/49 100 Oxymask 2 01/06/18 11:56 100 Oxymask 2 01/06/18 11:51 100 Oxymask 2 01/06/18 11:46 Oxymask 2 01/06/18 11:41 79 16 101/51 100 Oxymask 2 01/06/18 11:36 82 16 104/54 100 Oxymask 2 01/06/18 08:58 37.1 81 96/51 (66) 01/06/18 08:26 76 98/57 (71) 01/06/18 08:00 Nasal Cannula 2.0 01/06/18 06:51 36.7 75 18 99/61 (74) 96 2.0 01/06/18 04:17 36.6 83 20 97/57 (70) 98 2.0 01/06/18 04:00 Nasal Cannula 2.0 01/06/18 00:00 Nasal Cannula 2.0 01/05/18 23:32 36.7 80 18 98/57 (71) 98 Nasal Cannula 1.0 01/05/18 20:00 Nasal Cannula 2.0 01/05/18 19:22 36.7 82 18 100/59 (73) 95 Nasal Cannula 1.0 01/05/18 16:00 Nasal Cannula 2.0 Lab Results: Results Past 24 Hours Test 01/05/18 15:57 01/05/18 19:57 01/05/18 23:54 01/06/18 04:08 Range/Units Bedside Glucose 149 138 134 135 70-90 mg/dl Test 01/06/18 04:35 01/06/18 05:54 01/06/18 08:17 01/06/18 10:22 Range/Units White Blood Count 13.00 4.8-10.8 K/uL Red Blood Count 3.38 4.2-5.4 M/uL Hemoglobin 10.1 12.0-16.0 g/dL Hematocrit 32.2 37-47 % Mean Corpuscular Volume 95.3 80-100 fL Mean Corpuscular Hemoglobin 29.9 25-34 pg Mean Corpuscular Hemoglobin Concent 31.4 32-36 g/dl RDW Standard Deviation 56.9 36.4-46.3 fL RDW Coefficient of Variation 16.4 11.5-14.5 % Platelet Count 235 130-400 K/uL Mean Platelet Volume 9.1 7.4-10.4 fL Venous Blood pH 7.35 7.36-7.41 Creatinine 4.94 5.12 0.60-1.20 mg/dl Est Creatinine Clear Calc Drug Dose 8.6 8.3 ml/min Estimated GFR () 9.7 9.3 Estimated GFR (Non- 8.4 8.0 Random Vancomycin Level 17.8 mcg/ml Bedside Glucose 136 110 70-90 mg/dl Prothrombin Time 16.8 9.0-12.0 SECONDS Prothromb Time International Ratio 1.6 0.9-1.1 Sodium Level 136 136-145 mmol/L Potassium Level 4.1 3.5-5.1 mmol/L Chloride Level 99 98-107 mmol/L Carbon Dioxide Level 24 21-32 mmol/L Anion Gap 13.0 3-11 mmol/L Blood Urea Nitrogen 68 7-18 mg/dl BUN/Creatinine Ratio 13.3 10-20 Random Glucose 132 70-99 mg/dl Calcium Level 8.2 8.5-10.1 mg/dl Test 01/06/18 12:51 01/06/18 14:44 Range/Units Bedside Glucose 112 70-90 mg/dl Hepatitis B Surface Antigen NEG NEG Hepatitis B Surface Antibody POS
[2018-01-06] MEDS ORDERED: VANCOMYCIN IV 500 MG in SODIUM CHLORIDE 0.9% 100ML 100 ML IV ONE (16:00)
--- NOTE | 2018-01-06 16:00 | Discharge Summary ---
Discharge Summary Date of Service Jan 06, 2018. Discharge Summary Admission Date: Jan 02, 2018 at 12:06 Discharge Date: Jan 06, 2018 Discharge Disposition: Acute care facility (Transferring to [facility]) Principal Diagnosis: SBO PERITONITIS/ABSCESS? LEFT HUMERUS FRACTURE Secondary Diagnoses/Problems: (1) Acute appendicitis with rupture Permanent Comment: Aug 2017. Medically managed Status: Chronic (2) Anemia Status: Chronic (3) Benign hypertension with ESRD (end-stage renal disease) Status: Chronic (4) Diabetes Status: Chronic (5) ESRD (end stage renal disease) on dialysis Status: Chronic (6) Hyperparathyroidism due to ESRD on dialysis Status: Chronic (7) Hypertension Status: Chronic (8) Liver failure Status: Chronic (9) Renal failure Status: Chronic (10) Secondary hyperparathyroidism of renal origin Status: Chronic (11) Von Willebrand disease Status: Chronic Procedures: LEFT SHOULDER XRAY: 1. Comminuted minimally displaced and impacted fracture of the neck of the left humerus. 2. Osteopenia. 3. Trace left pleural effusion. RIBS WITH CXR: 1. Fracture left humeral neck. 2. Negative chest. 3. Negative left ribs. CT ABD/PELVIS: 1. Findings suspicious for small bowel obstruction at the level of the mid to distal small bowel in the superior pelvis. This is poorly defined in the absence of intravenous contrast. 2. Suggestion of diffuse peritoneal thickening, which raises concern for peritonitis. 3. Fluid collection posterior and inferior to the cecum, possibly extraperitoneal. This would also be better evaluated in the presence of intravenous contrast and is suspicious for an abscess. 4. Diffuse mesenteric edema, small abdominal pelvic ascites, and body wall edema likely indicates volume overload. 5. Chronic pancreatitis. 6. Cholelithiasis. 7. Chronic renal atrophy. CT LEFT SHOULDER: 1. Acute mildly displaced impacted transverse left humeral neck fracture that extends into the humeral head and involves the greater tuberosity. 2. Severe osteoarthritis of the left glenohumeral joint. Anatomic alignment of the left acromioclavicular and glenohumeral joints. CHEST AND ABDOMEN XRAY: 1. Cardiomegaly without radiographic evidence of congestive failure. 2. There is developing airspace consolidation at the left lung base. Although this could represent atelectasis, correlate clinically for evidence of pneumonia/aspiration pneumonitis. 3. Small pleural effusions. 4. An enteric tube projects over the stomach. 5. There is evidence of persistent small bowel obstruction. 6. Calcified gallstones and pancreatic calcifications are similar to previous. 7. Left humeral fracture. Consultations: SURGERY ORTHOPEDICS NEPHROLOGY VASCULAR SURGERY Medication Reconciliation Discontinued Medications: Calcium Acetate (Phoslo 667 Mg) 667 Mg Cap 3 CAPSULES PO WM Currently held per gen surg Calcium Acetate (Phoslo 667 Mg) 667 Mg Cap 1 CAP PO with snacks Currently held per gen surg Calcium Carbonate (Tums) 500 Mg Chew 2 TABS PO DAILY Cholecalciferol (Vitamin D3) 1,000 Inter.unit Tab 1000 UNITS PO QAM Furosemide (Furosemide) 80 Mg Tab 80 MG PO QAM PT TAKES ON SATURDAY,SATURDAY,SATURDAY, SATURDAY Hydralazine Hcl (Apresoline) 10 Mg Tab 1 TAB PO TID for 30 Days, #90 TAB 3 Refills Insulin Aspart (Novolog Flexpen) 100 Units/Ml Inj 0-40 UNITS SQ MEALS AFTER 1700 PRN for 1 UNIT FOR EVERY SEVEN CARBS Insulin Glargine (Lantus) 100 Unit/Ml Inj 7 UNITS SC QAM Lisinopril (Zestril) 40 Mg Tab 40 MG PO HS Metoprolol Tartrate (Lopressor) (Lopressor) 50 Mg Tab 50 MG PO BID Multiple Vitamins W/ Minerals (Prorenal Vital) 1 Tab Tab 1 TAB PO QAM Oxycodone/Acetaminophen 5MG/325MG (Percocet 5MG/325MG) Tab 1-2 TABLETS PO Q4H PRN for Pain PAIN Psyllium (Metamucil Fiber) 51.7 % Jef 1 TSP PO DAILY PRN for Constipation Admission Information HPI (per Admitting provider): This is a 67yo F with a PMH of ESRD on dialysis, Type 1 DM, HTN and other medical problems listed below who presents after a fall this AM. Patient was letting her cats out when she lost her balance and fell onto her left shoulder. Denies any LOC or head trauma. Has been experiencing worsening abdominal pain since Saturday with associated nausea and anorexia. Was hospitalized last August for acute appendicitis with rupture which was treated conservatively with IV antibiotics. Has experienced intermittent bouts of pain over the last few months and is not able to say what exacerbates pain. Has had diarrhea over the past few weeks and phoslo was recently held in order for bowel rest, per surgery clinic note. Has been taking tums with some relief as well as Percocet PRN. Currently endorses 8/10 left shoulder pain as well as 6/10 lower abdominal pain. Endorses nausea and lightheadedness. Denies fever, chills, chest pain, SOB , vomiting, melena, hematochezia. Last BM was 2 days ago. Receives dialysis MWF with her last session yesterday. Has not been taking home medications since Saturday. In ED, L shoulder XR showed comminuted minimally displaced humerus neck fracture. CT abd/pelvis with suspicion for small bowel obstruction. BSG is elevated to 448. Physical Exam (per Admitting): General Appearance: + mild distress Head: normocephalic, atraumatic Eyes: normal inspection, PERRL, sclerae normal ENT: normal ENT inspection, hearing grossly normal, pharynx normal (dry mucous membranes ) Neck: supple, thyroid normal, trachea midline Respiratory/Chest: chest non-tender, no respiratory distress, no accessory muscle use, + pertinent finding (coarse breath sounds throughout ) Cardiovascular: regular rate, rhythm, normal peripheral pulses, + systolic murmur Abdomen/GI: + tenderness (Diffuse TTP, no guarding ), + abnormal bowel sounds (hypoactive ) Back: normal inspection Extremities/Musculoskelatal: no calf tenderness, + pertinent finding (L antecubital AV fistula visualized. L shoulder immobilized in sling. Normal cap refill in L hand. Trace BLE edema. ) Neurologic/Psych: no motor/sensory deficits, alert, normal mood/affect, oriented x 3 Skin: normal color, warm/dry Hospital Course This is a 67yo F with a PMH of ESRD on dialysis, Type 1 DM, HTN and other medical problems listed below who presents after a fall this AM and was found to have a left humeral neck fracture, SBO and hyperglycemia. Small bowel obstruction: presented with Abd pain, nausea x 6 days. Last BM 2 days ago H/o medically managed appendicitis with rupture in Aug 2017 possible sepsis? with elevated wbc, lactic acid 2.7, possible peritonitis or abscess on ct scan and sbo on ct scan Has been following with Dr. Ryan of general surgery Ng tube placed started on Cipro and Flagyl iv fluids lactic acid normalized NPO surgery on board and appreciate inputs If deteriorates plan to transfer to tertiary care for IR for possible abscess drainage to continue iv vanco to cover gm positives as per ID transferring To [facility] today as patient condition has not much improved and WBC going up again..Hemodynamically stable bacteremia one bottle repeat cx negative mostly contaminant on abx as above L Humeral neck fracture: Fell on shoulder XR with comminuted minimally displaced and impacted fracture of the neck of the attending addendum left humerus Shoulder immobilized in splint -Ortho consulted and recommends conservative management no complaints today f/u with ortho on discharge Hyperglycemia 2/2 DM I: Non-compliant with insulin, infection hyperglycemia on presentation received 10 units of iv insulin currently on lantus and iss 136/110/132/112 appreciate pharmacy help. ESRD on dialysis: Dialysis MWF Follows with [facility] nephro Usually takes 80mg PO lasix on non-dialysis days which is held as patient is npo nephro consulted and appreciate inputs s/p perm cath today as fistula was not working. If goes to [facility] before dialysis then to do dialysis at [facility] today HTN: Holding home agents Hydralazine 10mg IV Q8 for SBP >160 DVT Ppx: SCDs for now. Code status: FULL per admissions. PCP: Jena Dispo: Transferring To [facility] Today Total time spent on discharge = 40MINUTES This includes examination of the patient, discharge planning, medication reconciliation, and communication with other providers. Discharge Instructions Discharge Instructions Date of Service Jan 06, 2018. Admission Reason for Admission: Diabetes, Left Shoulder Fracture Discharge Discharge Diagnosis / Problem: sbo, extraperitoneal abscess?, Left shoulder fx Discharge Goals Goal(s): Decrease discomfort, Improve function Activity Recommendations Activity Level: Assistance Required . Additional Information Patient informed of condition: Yes Advance Directives: Yes DNR: No Level of Care: Other (Transfering to [facility]) Communicable Disease: No Prognosis: Other (Transferring to [facility]) Oxygen at (LPM): 2lts Doran Catheter: No Instructions / Follow-Up Instructions / Follow-Up FOLLOWUP PER [facility] RECOMMENDATIONS Current Hospital Diet Patient's current hospital diet: Discharge Diet Recommended Diet: N/A (NPO) Procedures Procedures Performed: Perm Catheter Placement Right Jugular Approach Ultrasound Localization of Right Jugular Vein Fluroscopy for Comfirmation Moderate sedation 1141- 1200 Pending Studies Studies pending at discharge: no Physician Orders On Transfer IV Therapy: IV CIPRO OV FLAGYL IV VANCO Laboratory Results Hemoglobin A1c Test 01/03/18 04:12 Range/Units Estimated Average Glucose 169 mg/dl Hemoglobin A1c 7.5 H 4.5-5.6 % Lipid Panel Test 01/01/18 17:15 Range/Units Triglycerides Level 218 H 0-150 mg/dl Cholesterol Level 106 0-200 mg/dl HDL Cholesterol 17 mg/dl Cholesterol/HDL Ratio 6.2 LDL Cholesterol, Calculated 45 mg/dl Medical Emergencies . Who to Call and When: Medical Emergencies: If at any time you feel your situation is an emergency, please call 911 immediately. . Non-Emergent Contact Non-Emergency issues call your: Primary Care Provider . . "Provider Documentation" section prepared by Jacques Blackwell. . Core Measure Problem Core Measures: None
== END 2018-01-06 18:30 | disposition short-term general hospital (02) | DRG 388 ==
LOC: C.EDB 07:10 → OBSVTOIN 12:06 → C.EDINP 12:06 → ENRESERV 13:34 → C.MS2W 14:29
PROVIDERS: ADMIT Hospitalist; ATTEND Internal Medicine
PROC: 0JH63XZ Insertion of Tunneled Vascular Access Device into Chest Subcutaneous Tissue and Fascia, Percutaneous Approach (ICD-10-PCS; principal; 2018-01-06 10:15)
PROC: 02HV33Z Insertion of Infusion Device into Superior Vena Cava, Percutaneous Approach (ICD-10-PCS; principal; 2018-01-06 10:15)
DX: K56.600 Partial intestinal obstruction, unspecified as to cause (principal); K65.9 Peritonitis, unspecified; N18.6 End stage renal disease; I12.0 Hypertensive chronic kidney disease with stage 5 chronic kidney disease or end stage renal disease; S42.232A 3-part fracture of surgical neck of left humerus, initial encounter for closed fracture; D68.0 Von Willebrand disease; K63.0 Abscess of intestine; T82.868A Thrombosis due to vascular prosthetic devices, implants and grafts, initial encounter; E10.22 Type 1 diabetes mellitus with diabetic chronic kidney disease; E87.6 Hypokalemia; E10.65 Type 1 diabetes mellitus with hyperglycemia; R19.7 Diarrhea, unspecified; Z79.4 Long term (current) use of insulin; Z79.899 Other long term (current) drug therapy; Z99.2 Dependence on renal dialysis; Z88.0 Allergy status to penicillin; Z88.1 Allergy status to other antibiotic agents; Z88.2 Allergy status to sulfonamides; Z88.6 Allergy status to analgesic agent; W01.0XXA Fall on same level from slipping, tripping and stumbling without subsequent striking against object, initial encounter; Y92.009 Unspecified place in unspecified non-institutional (private) residence as the place of occurrence of the external cause; Z91.14 Patient's other noncompliance with medication regimen; D64.9 Anemia, unspecified; Y84.1 Kidney dialysis as the cause of abnormal reaction of the patient, or of later complication, without mention of misadventure at the time of the procedure; Y71.2 Prosthetic and other implants, materials and accessory cardiovascular devices associated with adverse incidents

== ENCOUNTER 2018-01-26 23:53 | Inpatient (IN) | payer OTHER ==
[~2018-01-26] VITALS: Ht 157.5 cm; Wt 55.4 kg
[2018-01-27] VITALS (32 sets, daily range): BP systolic 78–147; BP diastolic 32–68; PULSE 81–98; TEMP 36.4–36.9; O2SAT 91–100; Ht 157.5 cm; Wt 55.4 kg
[2018-01-27] MEDS ORDERED: SODIUM CHLORIDE 0.9% 1000ML 500 ML IV ONE ×2 (00:16)
[2018-01-27] MEDS ORDERED: POLY335019 PO (00:19)
[2018-01-27] MEDS ORDERED: LISI40TA PO (00:21)
[2018-01-27] MEDS ORDERED: FAMO20TA11 PO (00:21)
[2018-01-27] MEDS ORDERED: METO50TA16 PO (00:22)
[2018-01-27] MEDS ORDERED: OXYC-106 PO (00:24)
[2018-01-27] MEDS ORDERED: OXYC-57 PO (00:24)
[2018-01-27] MEDS ORDERED: SENN-65 PO (00:25)
[2018-01-27] MEDS ORDERED: ONDA4TAB46 PO (00:25)
[2018-01-27] MEDS ORDERED: CHOL1000 PO (00:26)
[2018-01-27] MEDS ORDERED: INSDGIPEN SC (00:26)
[2018-01-27] MEDS ORDERED: HYDR-4715 PO (00:28)
[2018-01-27] MEDS ORDERED: FURO80TA63 PO (00:28)
[2018-01-27] MEDS ORDERED: DOCU-94 PO (00:29)
[2018-01-27] MEDS ORDERED: METR-163 PO (00:31)
[2018-01-27] MEDS ORDERED: ACET-1256 PO (00:31)
[2018-01-27] MEDS ORDERED: CIPR-304 PO (00:32)
[2018-01-27] MEDS ORDERED: CEFA1INJ3 IV (00:37)
[2018-01-27] MEDS ORDERED: CALC500C3 PO (00:41)
[2018-01-27] MEDS ORDERED: NVLGI/PEN SQ (00:41)
[2018-01-27 00:51] LABS: HEMATOCRIT 29.7 % (37-47); HEMOGLOBIN 9.4 g/dL (12.0-16.0); MEAN CELL VOLUME 98.7 fL (80-100); MEAN CORPUSCULAR HEMOGLOBIN 31.2 pg (25-34); MEAN CORPUSCULAR HGB CONC 31.6 g/dl (32-36); MEAN PLATELET VOLUME 8.8 fL (7.4-10.4); PLATELET COUNT 265 K/uL (130-400); RED CELL DISTRIBUTION WIDTH CV 18.6 % (11.5-14.5); RED CELL DISTRIBUTION WIDTH SD 66.8 fL (36.4-46.3); WHITE BLOOD COUNT 6.54 K/uL (4.8-10.8)
--- NOTE | 2018-01-27 00:57 | EMERGENCY ROOM VISIT NOTE ---
History Report prepared by Molly: Angelo Merino Under the Supervision of: Dr. Sherly Allen D.O. First contact with patient: 00:16 Chief Complaint: RESPIRATORY PROBLEMS Stated Complaint: POSSIBLE ASPIRATION History of Present Illness The patient is a 67 year old female who presents to the Emergency Room with complaints of persistent shortness of breath and cough since this afternoon. Per daughter, the patient had vomited after her lunch. She notes the patient has been aspirating her medications and food today. The patient has been spitting up yellow fluid. Per daughter, the patient was seen in the ED December for a broken left shoulder from a fall and lower abdominal pain. She was diagnosed with a possible small bowel obstruction and intra-abdominal abscesses. The patient has an AVF in her upper left arm, though it was broken and replaced at [place]. The patient had a right subclavian dialysis catheter in place on January 06, 2018, prior to her transfer to [facility]. Per daughter, Dr. Decker, policy specialist left the chest catheter in to make sure her fistula was operating as normal. The patient last had dialysis January 25, 2018 and they used her port instead of her fistula. Per daughter, the patient was diagnosed with appendicitis in August 2017, which ruptured. The patient was treated with antibiotics at that time. The patient recently had abdominal surgery to have abscesses removed January 17, 2018. She notes they did not remove her appendix. Per daughter, the patient had abdominal drains in place, though they were removed prior to her being placed at [facility]. She was placed at [facility] January 21, 2018. Per daughter, the patient's blood sugar has been running high, though the patient's blood sugar is currently normal. Per daughter , the patient has not had a normal bowel movement since the surgery. She notes the bowel movements are small in nature. The patient has a bed sore. The patient has a cough. The patient has a history of aspiration. She has a history of SBO, Sjogrens disease, Type 1 Diabetes Mellitus, pulmonary HTN, intra- abdominal abscesses, and ESRD on dialysis. Source of History: patient, family Onset: since this afternoon Position: other (general ) Quality: other (aspirations) Timing: other (persistent) Associated Symptoms: + cough, + vomiting Review of Systems See HPI for pertinent positives & negatives. A total of 10 systems reviewed and were otherwise negative. Past Medical & Surgical Medical Problems: (1) Acute appendicitis with rupture (2) Anemia (3) Aspiration of food (4) Benign hypertension with ESRD (end-stage renal disease) (5) Cardiac arrest (6) Diabetes (7) ESRD (end stage renal disease) on dialysis (8) ESRD on dialysis (9) Hyperparathyroidism due to ESRD on dialysis (10) Hypertension (11) Liver failure (12) Pulmonary edema (13) Renal failure (14) Secondary hyperparathyroidism of renal origin (15) Von Willebrand disease Family History No pertinent family history Social History Smoking Status: Never Smoker Alcohol Use: none Drug Use: none Marital Status: Housing Status: lives with family Occupation Status: retired Current/Historical Medications Scheduled Calcium Carbonate (Tums), 1,000 MG PO DAILY Cefazolin In D5w (Cefazolin Sodium), 2 GM IV 3XWK Cholecalciferol (Vitamin D3), 1 TAB PO DAILY Ciprofloxacin HCl (Ciprofloxacin), 500 MG PO DAILY Docusate Sodium (Colace), 1 CAP PO BID Famotidine (Pepcid), 20 MG PO DAILY Furosemide (Lasix), 80 MG PO 4XWK Hydralazine Hcl (Apresoline), 10 MG PO Q8 Insulin Aspart (Novolog Flexpen), UNITS SQ TIDM Insulin Glargine (Lantus Solostar), 7 UNITS SC DAILY Lisinopril (Zestril), 40 MG PO DAILY Metoprolol Tartrate (Lopressor) (Lopressor), 50 MG PO Q12 Metronidazole (Flagyl), 500 MG PO DAILY Polyethylene Glycol 3350 (Miralax), 17 GM PO DAILY Senna/Docusate Sod (Senokot S), 1 TAB PO DAILY Scheduled PRN Acetaminophen (Tylenol), 1 TAB PO Q4 PRN for Mild Pain Ondansetron Hcl (Zofran), 4 MG PO Q6 PRN for Nausea Oxycodone/Acetaminophen 10MG/325MG (Percocet 10MG/325MG), 1 TAB PO Q4 PRN for pain scale 7-10 Oxycodone/Acetaminophen 5MG/325MG (Percocet 5MG/325MG), 1 TAB PO Q4 PRN for pain scale 4-6 Allergies Coded Allergies: Adhesives (Verified Allergy, Intermediate, RASH, 01/27/18) Amoxicillin (Verified Allergy, Intermediate, RASH, 01/27/18) Ampicillin (Verified Allergy, Intermediate, RASH, 01/27/18) Erythromycin (Verified Allergy, Intermediate, RASH, 01/27/18) Etodolac (Verified Allergy, Intermediate, RASH, 01/27/18) Penicillins (Verified Allergy, Intermediate, RASH, 01/27/18) Sulfa Antibiotics (Verified Allergy, Intermediate, RASH, 01/27/18) Aspirin (Verified Allergy, Mild, RASH, 01/27/18) Sevelamer (Verified Allergy, Mild, rash, 01/27/18) Physical Exam Vital Signs Date Time Temp Pulse Resp B/P (MAP) Pulse Ox O2 Delivery O2 Flow Rate FiO2 01/27/18 02:36 103/63 01/27/18 02:34 88 30 100 01/27/18 02:32 100 01/27/18 02:31 92/65 01/27/18 02:29 89 28 100 01/27/18 02:24 90 24 100 Mechanical Ventilator 01/27/18 02:22 91 21 100 01/27/18 02:21 100/58 01/27/18 02:20 91 29 100 01/27/18 02:18 91 27 01/27/18 02:16 89 18 97/53 100 Mechanical Ventilator 01/27/18 02:16 90 31 97/53 01/27/18 02:14 92 33 01/27/18 02:12 91 29 01/27/18 02:12 91 29 01/27/18 02:11 90/54 01/27/18 02:11 90/54 01/27/18 02:10 92 27 01/27/18 02:09 82/53 01/27/18 02:06 71/49 01/27/18 02:01 94 01/27/18 02:01 65/47 01/27/18 02:00 Mechanical Ventilator 100 01/27/18 01:57 94 26 01/27/18 01:56 75/50 01/27/18 01:55 95 Nasal Cannula 3.0 01/27/18 01:52 36.2 81 22 115/52 96 Nasal Cannula 3.0 01/27/18 01:51 86/58 01/27/18 01:48 98 01/27/18 01:47 97/52 01/27/18 01:42 110 22 01/27/18 01:41 133/73 01/27/18 01:36 148/68 01/27/18 01:31 144/73 01/27/18 01:28 173/77 01/27/18 01:27 114 23 94 01/27/18 01:25 200/94 01/27/18 01:24 207/99 01/27/18 01:23 120 01/27/18 01:21 102 01/27/18 01:21 97 01/27/18 01:20 119 01/27/18 01:13 44 01/27/18 01:12 44 01/27/18 01:02 96 Nasal Cannula 3.0 01/27/18 00:06 76 Physical Exam HEENT: Head - normocephalic and atraumatic Pupils are equal, round, and reactive to light. Extraocular eye muscles are intact, and sclera are anicteric. Nose - moist nasal mucosa without discharge. Mouth - dry buccal mucosa. Oropharynx is nonerythematous and there is no tonsillar exudate or edema noted. Neck: Supple; no JVD, nuchal rigidity, cervical lymphadenopathy, or auscultated bruits. Heart: Tachycardic rate and regular rhythm. There is a normal S1 and S2 with no murmurs, clicks, or gallops appreciated. Lungs: Diminished breath sounds in both bases. Abdomen: Abdomen was distended, but completely nontender, hypoactive bowel sounds. Abdominal incisions with [place] in place, appear to be well healing. No obvious sign of infection. Extremities: Pressure wounds just distal to the popliteal fossa bilaterally possible secondary to SCD. Trace pedal edema. Buttocks: Significant skin break down Skin: pale, warm, and dry with good turgor and no rashes. Medical Decision & Procedures ER Provider Diagnostic Interpretation: Radiology results as stated below per my review and interpretation: CHEST XR: Port in place. Bilateral pleural effusions. Bilateral lower lobe infiltrates concerning for pneumonia. Significantly elevated diaphragm. KUB XR: Severe constipation. No fee air. Dilated loops of small bowel. CHEST XR post intubation: Endotracheal tube is 2 cm above the leodan. Bilateral pulmonary infiltrates. Laboratory Results Test 01/27/18 00:41 01/27/18 00:42 01/27/18 00:44 01/27/18 01:13 Immature Granulocyte % (Auto) 0.6 % White Blood Count 6.54 K/uL (4.8-10.8) Red Blood Count 3.01 M/uL (4.2-5.4) Hemoglobin 9.4 g/dL (12.0-16.0) Hematocrit 29.7 % (37-47) Mean Corpuscular Volume 98.7 fL (80-100) Mean Corpuscular Hemoglobin 31.2 pg (25-34) Mean Corpuscular Hemoglobin Concent 31.6 g/dl (32-36) Platelet Count 265 K/uL (130-400) Mean Platelet Volume 8.8 fL (7.4-10.4) Neutrophils (%) (Auto) 80.1 % Lymphocytes (%) (Auto) 9.8 % Monocytes (%) (Auto) 9.3 % Eosinophils (%) (Auto) 0.0 % Basophils (%) (Auto) 0.2 % Neutrophils # (Auto) 5.24 K/uL (1.4-6.5) Lymphocytes # (Auto) 0.64 K/uL (1.2-3.4) Monocytes # (Auto) 0.61 K/uL (0.11-0.59) Eosinophils # (Auto) 0.00 K/uL (0-0.5) Basophils # (Auto) 0.01 K/uL (0-0.2) Immature Granulocyte # (Auto) 0.04 K/uL (0.00-0.02) Red Blood Cell Morphology Unremarkable Venous Blood pH 7.33 (7.36-7.41) Venous Blood Partial Pressure CO2 45 mmHg (38.0-50.0) Venous Blood Partial Pressure O2 42 mmHg Venous Blood HCO3 23 mmol/L Venous Blood Oxygen Saturation 72.0 % Venous Blood Base Excess -3.2 mEq/L Troponin I 0.022 ng/ml (0-0.045) Globulin 3.9 gm/dl (2.5-4.0) Albumin/Globulin Ratio 0.4 (0.9-2) Procalcitonin 1.34 ng/ml (0-0.5) Bedside Lactic Acid Venous 2.35 mmol/L (0.90-1.70) Bedside Glucose 118 mg/dl (70-90) Test 01/27/18 01:51 Arterial Blood pH 7.26 (7.35-7.45) Arterial Blood Partial Pressure CO2 44 mmHg (35-46) Arterial Blood Partial Pressure O2 240 mm/Hg (80-95) Arterial Blood HCO3 19 mmol/L (19-24) Arterial Blood Oxygen Saturation 99.2 % (90-95) Arterial Blood Base Excess -7.5 mEq/L (-9-1.8) Arterial Blood Gas Delivery 100% Marcio Test POS (POS) Laboratory results per my review. Medications Administered Medications (Trade) Dose Ordered Sig/Eduardo Route Start Time Stop Time Status Last Admin Dose Admin Sodium Chloride 500 ml @ 999 mls/hr Q31M ONCE IV 01/27/18 00:16 01/27/18 00:46 DC 01/27/18 00:16 999 MLS/HR Sodium Chloride 500 ml @ 999 mls/hr Q31M ONCE IV 01/27/18 00:16 01/27/18 00:46 DC 01/27/18 00:16 999 MLS/HR Propofol (Diprivan Iv Emulsion 100ml Vial) 1 dose STK-MED ONCE IV 01/27/18 01:32 01/27/18 01:33 DC 01/27/18 01:35 1 DOSE Levofloxacin (Levaquin / D5W) 750 mg NOW STAT IV 01/27/18 01:41 01/27/18 01:43 DC 01/27/18 01:49 750 MG Imipenem/ Cilastatin Sodium 500 mg/Dextrose 110 ml @ 100 mls/hr NOW STAT IV 01/27/18 01:41 01/27/18 02:46 DC 01/27/18 05:02 100 MLS/HR Norepinephrine Bitartrate 8 mg/ Dextrose 508 ml @ 0 mls/hr Q0M STAT IV 01/27/18 01:53 01/27/18 01:55 DC 01/27/18 02:15 22 MLS/HR Procedure 0016: Ordered Sodium Chloride 500 ml @ 999 mls/hr IV and Sodium Chloride 500 ml @ 999 mls/hr IV 0120: IV epinephrine 0132: Ordered Propofol bolus and drip 0141: Ordered Imipenem/Cilastatin Sodium 500 mg/Dextrose 110 ml @ 100 mls/hr IV and Levaquin 750 mg IV 0150: IV Levophed Endotracheal Intubation Indication cardiac arrest. The patient was on 100% oxygen via bag valve mask prior to the procedure. Suction, airway equipment, RSI drugs, respiratory equipment, and appropriate personnel were prepared prior to the initiation of the procedure. A time out was taken. The airway was easily visualized utilizing a glide scope. A 7.0 size ETT tube was placed atraumatically to 25 cm using standard technique. The cuff inflated without signs of malfunction. There were bilateral breath sounds, positive colormetric change, no gastric sounds, and post procedure pulse oximetry was 98%. Post intubation sedation was administered using propofol. There were no complications. ECG Per My Interpretation Indication: other (aspirations) Rate (beats per minute): 75 Rhythm: normal sinus Findings: T-wave inversion (in L1 and aVL), other (Flattened TWI inferiorly and laterally ) ED Course 0024: Past medical records reviewed. The patient was evaluated in room C10. A complete history and physical exam was performed. IV lock was established. A septic protocol was performed. Nursing staff had great difficulty obtaining an IV site. Lactic acid and blood cultures were obtained. The patient had a portable chest x-ray and KUB as described above. She had a 12-lead EKG at this time. The daughter stated that the patient is a full code, but would like to be maintained on artificial machines for only three days. 0036: Ordered Sodium Chloride 500 ml @ 999 mls/hr IV and Sodium Chloride 500 ml @ 999 mls/hr IV 0113: Nursing staff alerted me that the patient suddenly had difficulty breathing and hypoxia. I reassessed the patient at this time. Her breathing was agonal. Her ventilations were assisted with a BVM and she was moved to room B1. 0115: The patient was moved to room B1. CPR was started as she was pulseless. The patient was placed on the code cart monitor. A code blue was called. The patient vomited copious amounts of yellow liquid consistent with bile. She was aggressively suctioned and bagged valve ventilation was continued. She received 1 mg of Epinephrine IV. Her rhythm was checked and she was found to be in PEA. CPR was continued. After a period of time she regained strong femoral pulses. Her dialysis catheter port was accessed and she was given an additional 500 ml of NSS. 0120: The patient was intubated at this time. Please see procedural note. 0125: Dr. Barone performed a bedside echo. Findings showed: grossly normal LV function and no pericardial effusion. The patient was initially hypertensive and tachycardic. A post intubation chest x-ray was obtained and confirmed good tube placement. 0132: The patient began to bite on the tube. Ordered Propofol bolus and drip. An OG tube was placed. 0135: I spoke with Efra Fox PA-C. We discussed the patient's case. The patient will be further evaluated. 0141: I was in the process of ordering IV antibiotics for this septic patient when nursing staff had originally alerted me that she was hypoxic. I completed the order for imipenem/Cilastatin Sodium 500 mg/Dextrose 110 ml @ 100 mls/hr IV and Levaquin 750 mg IV to treat the probable source of aspiration pneumonia. 0145: I spoke with Dr. Black, [facility] [address] Hospitalist. We discussed the patient's case. The patient will be evaluated by the [facility] for further management. 0215: I reassessed the patient at this time. She is hemodynamically stable at the moment. 0220: Nursing staff alerted me that the patient's blood pressure had dropped. I ordered an IV Levophed drip at 5 mcg 0241: I spoke with Efra Fox PA-C. The patient was sent for a CT Scan of the abdomen and pelvis and will be further evaluated in the ICU. Medical Decision The patient is a 67 year old female who presents to the ED with aspiration. Differential diagnosis includes aspiration pneumonia, SBO, and septic shock. Labs results showed: Lactate was 2.35. WBC 6.5. Hemoglobin 9.4. Platelet 265. 80 % Neutrophils. BUN 27. Creat 3.1. Glucose 120. Normal LFTs. Troponin 0.022. INR 3.1. PTT 131.2. VBG: pH of 7.3; pCO2 of 45; pO2 of 42; HCO3 of 23. This is a 67-year-old female patient who presents to the emergency department from [facility] with increasing shortness of breath and cough. According to the patient's daughter, she has developed a productive cough since lunchtime. The daughter believes that she may have aspirated her lunch as well as medications. She continues to become more short of breath and is coughing up a yellow substance. The patient has a long history of medical problems including most recently drainage of pelvic abscesses. On initial physical exam, the patient was coughing up a yellow substance and had a very wet/moist cough concerning for aspiration. Initially O2 saturations were maintained on supplemental oxygen through nasal cannula. However the patient developed increased respiratory distress as she was being treated for septic shock. She became acutely hypoxic and bradycardic with a cardiac arrest. The patient was in a PEA. She received CPR and IV epinephrine during the resuscitation along with IV crystalloid therapy. I was concerned for the patient's history of previous episodes of fluid overload and did not want to use additional crystalloid. Therefore, I used Levophed to support the patient's blood pressure. The patient suffered respiratory/cardiac arrest here in the emergency department. CPR was initiated immediately and artificial ventilation was performed. Once we had return of spontaneous circulation, the patient was intubated. An OG tube was placed which produced a significant amount of that yellow bile looking fluid from the stomach. I am concerned for the possibility of a small bowel obstruction as the cause of the patient's significant abdominal distention. I believe that her abdominal distention may have led to the aspiration. The patient became increasingly agitated and required sedation. She again became hypotensive and was treated with crystalloid therapy and IV Levophed. The patient's daughter remained at the bedside. The patient's sister arrived and I reviewed the events of her emergency department stay to this point. I discussed the case with the critical care PA and Dr. ritter. They will continue to care for the patient. Medication Reconcilliation Current Medication List: was personally reviewed by me Blood Pressure Screening Patient's blood pressure: Low blood pressure referred to hospitalist Consults Time Called: 0135 Consulting Physician: Efra Fox PA-C I spoke with Efra Fox PA-C. We discussed the patient's case. The patient will be further evaluated. 0241: I spoke with Efra Fox PA-C. The patient was sent for an A/P CT Scan and will be further evaluated in the ICU. Additional Consults: Time Called: 0145 Consulted Physician: [facility] Additional Comments: I [facility] with [facility]. We discussed the patient's case. The patient will be evaluated by the [facility] for further management. Impression Primary Impression: Septic shock Additional Impressions: Cardiac arrest Aspiration pneumonia Critical Care I have personally spent greater than 75 minutes of critical care time in the direct management of this patient. This includes bedside care, interpretation of diagnostic studies, and testing, discussion with consultants, patient, and family members, and other required patient management activities. This 75 minutes is in excess of all separately billable procedures. Scribe Attestation The scribe's documentation has been prepared under my direction and personally reviewed by me in its entirety. I confirm that the note above accurately reflects all work, treatment, procedures, and medical decision making performed by me. Departure Information Dispostion Being Evaluated By Hospitalist Sixto Warren M.D. (PCP) Patient Instructions My [facility] Problem Qualifiers Additional Impressions: Aspiration pneumonia Aspiration pneumonia type: due to gastric secretions Laterality: bilateral Lung location: unspecified part of lung Qualified Codes: J69.0 - Pneumonitis due to inhalation of food and vomit
[2018-01-27 01:10] LABS: ALBUMIN 1.4 gm/dl (3.4-5.0); ALT/SGPT < 6 U/L (12-78); AST/SGOT 19 U/L (15-37); BASO % 0.2 %; BASO ABS # 0.01 K/uL (0-0.2); BLOOD UREA NITROGEN 27 mg/dl (7-18); CALCIUM 8.1 mg/dl (8.5-10.1); CARBON DIOXIDE 23 mmol/L (21-32); CREATININE 3.12 mg/dl (0.60-1.20); GLUCOSE 120 mg/dl (70-99); IG# 0.04 K/uL (0.00-0.02); LYMPH % 9.8 %; LYMPH ABS # 0.64 K/uL (1.2-3.4); MONO % 9.3 %; MONO ABS # 0.61 K/uL (0.11-0.59); NEUT % 80.1 %; NEUT ABS # 5.24 K/uL (1.4-6.5); POTASSIUM 4.6 mmol/L (3.5-5.1); SODIUM 138 mmol/L (136-145)
[2018-01-27 01:15] LABS: ALKALINE PHOSPHATASE 143 U/L (45-117); TOTAL PROTEIN 5.3 gm/dl (6.4-8.2)
[2018-01-27 01:30] LABS: INR 3.1 (0.9-1.1)
[2018-01-27] MEDS ORDERED: PROPOFOL IV EMULSION 10 MG/ML 100 ML VIAL IV ONE (01:32)
[2018-01-27] MEDS ORDERED: PROPOFOL IV EMULSION 10 MG/ML 20 ML VIAL IV ONE (01:32)
[2018-01-27] MEDS ORDERED: IMIPENEM/CILASTATIN IV 500 MG in DEXTROSE 5% 100ML 100 ML IV STA (01:41)
[2018-01-27] MEDS ORDERED: LEVAQUIN 750MG / 150ML D5W IV STA (01:41)
[2018-01-27 01:44] LABS: PTT PATIENT 131.2 SECONDS (21.0-31.0)
[2018-01-27] MEDS ORDERED: NOREPINEPHRINE BIT INJ 8 MG in DEXTROSE 5% 500ML 500 ML IV STA (01:53)
[2018-01-27] MEDS ORDERED: VANCOMYCIN CONSULT ACTIVE PRN ×2 (02:15→02:30)
[2018-01-27] MEDS ORDERED: ICU PROTOCOL FOR HYPERGLYCEMIA PRN ×2 (02:30→02:45)
[2018-01-27] MEDS ORDERED: LEVOFLOXACIN / D5W 750 MG in PREMIXED IN D5W 150 ML IV SCH (02:30)
[2018-01-27] MEDS ORDERED: IMIPENEM/CILASTATIN IV 500 MG in DEXTROSE 5% 100ML 100 ML IV SCH (02:30)
[2018-01-27] MEDS ORDERED: FENTANYL CITRATE INJ 50 MCG/1 ML 2 ML VIAL IV PRN ×2 (02:30→09:45)
[2018-01-27] MEDS ORDERED: PROPOFOL IV EMULSION 10 MG/ML 100 ML VIAL IV PRN (03:04)
[2018-01-27] MEDS ORDERED: VANCOMYCIN IV 1,250 MG in SODIUM CHLORIDE 0.9% 250ML 250 ML IV SCH (03:30)
[2018-01-27] MEDS ORDERED: LEVALBUTEROL 1.25MG/0.5ML NEB INH SCH (04:00)
[2018-01-27] MEDS ORDERED: IPRATROPIUM BROMIDE NEB SOLN 0.02% 2.5 ML VIAL INH SCH (04:00)
[2018-01-27] MEDS ORDERED: IMIPENEM/CILASTATIN CONSULT ACTIVE PRN (04:15)
[2018-01-27] MEDS ORDERED: NORMOSOL R 1,000 ML IV SCH (04:15)
[2018-01-27] MEDS ORDERED: LEVOFLOXACIN CONSULT ACTIVE PRN (04:15)
[2018-01-27 04:59] LABS: HEMOGLOBIN 9.7 g/dL (12.0-16.0); MEAN CELL VOLUME 97.8 fL (80-100); MEAN CORPUSCULAR HEMOGLOBIN 30.6 pg (25-34); MEAN CORPUSCULAR HGB CONC 31.3 g/dl (32-36); MEAN PLATELET VOLUME 8.6 fL (7.4-10.4); PLATELET COUNT 265 K/uL (130-400); RED CELL DISTRIBUTION WIDTH CV 18.6 % (11.5-14.5); RED CELL DISTRIBUTION WIDTH SD 66.8 fL (36.4-46.3); WHITE BLOOD COUNT 3.77 K/uL (4.8-10.8)
--- NOTE | 2018-01-27 05:04 | HISTORY & PHYSICAL EXAMINATION ---
DATE OF ADMISSION: 08/25/2017 PRIMARY CARE PROVIDER: Dr. Bella. CHIEF COMPLAINT: The patient was brought in from [facility] with a cardiac arrest following aspiration. HISTORY OF PRESENT COMPLAINT: She is a 67-year-old female with a significant past medical history of acute perforated appendicitis in August of last year, type 1 diabetes, end-stage renal disease on hemodialysis, juvenile rheumatoid arthritis, Sjogren disease, anemia of chronic disease, history of Graves disease. Apparently was in [facility] following hospitalization in [place]. Apparently, her initial appendicitis with perforation was diagnosed in August. While she was in this hospital, she presented with a 2-day history of abdominal pain and CAT scan did show perforation of appendix with localized abscess formation. She was admitted to surgical service and medicine was consulted. Given her chronic medical condition, she was not a candidate for surgery, so she was managed with intravenous Cipro and Flagyl. Her condition did not get any better and subsequently she was transferred to [place] on 02 of January. In [place], she underwent IR procedure to drain her abdominal abscess, but that was a failure. Following that, she underwent laparoscopic washout on 13 of January and she has had multiple drainages following the surgery and she was discharged to [facility]. Today, she was having her dinner and following that, she started to have aspiration symptoms and she collapsed, and she was brought in with a cardiac arrest. She has had asystole with CPR, her condition improved and she required intubation. The aspiration contained lots of food materials. She was noted to have a very low blood pressure, in the Emergency Room, started with intravenous pressure enzymes and also broad spectrum antibiotics for a probable infection and also aspiration. Apparently, she has abdominal distention which is very tense and tender, and she will have CAT scan of the abdomen and following that, further management will be undertaken. From here, she was admitted to ICU for continuation of care. PAST MEDICAL HISTORY: Significant for acute perforated appendicitis with abscess in August of last year, status post laparotomy and drainage of multiple abscesses. On 13 of January, Type 1 diabetes with hemoglobin A1c less than 8%, end-stage renal disease on hemodialysis, juvenile rheumatoid arthritis, Sjogren syndrome, anemia of chronic disease, arteriovenous fistula thrombosis, history of Graves disease, pulmonary hypertension. PAST SURGICAL HISTORY: Significant for AV access, drainage of abdominal abscess on 14 of January. FAMILY HISTORY: No significant family history noted in the chart. SOCIAL HISTORY: She is . She has 4 kids. She does not smoke and she drinks occasionally alcohol and recently she has been staying in [facility] following surgery in the abdomen. ALLERGIES: SHE IS ALLERGIC TO ADHESIVES, AMOXICILLIN, ERYTHROMYCIN ETODOLAC, PENICILLIN, SULFA, ASPIRIN AND SEVELAMER. MEDICATIONS: She has been on cefazolin 2 grams intravenously once a day, ciprofloxacin 500 mg b.i.d., metronidazole 500 mg t.i.d., calcium acetate 67 mg three times daily, furosemide 80 mg daily, hydralazine 10 mg 3 times daily, insulin aspart 0 to 10 units under the skin 3 times a day, insulin Glargine 7 units daily, lisinopril 40 mg daily, Metamucil as directed, metoprolol tartrate 50 mg 2 times daily, oxycodone two tablets every 4 hours as needed, Tums as directed, and vitamin D as directed. REVIEW OF SYSTEMS: Not possible at this time. PHYSICAL EXAMINATION: GENERAL: On examination in the Emergency Room, she is intubated. She is alert and awake. VITAL SIGNS: Temperature 36.2, pulse was 81; blood pressure went down to 65/47, initially was 207/99; saturation, she is intubated, 100% FIO2. NECK: Supple, no JVD, no bruit. CHEST: Coarse crackles and transmitted sound, mostly on the right side. HEART: S1, S2 regular. ABDOMEN: Distended, tense, evidence of recent surgery with multiple drainage tubes. She has a catheter in the right upper chest. EXTREMITIES: 1+ edema bilaterally. CENTRAL NERVOUS SYSTEM: Alert, awake, intubated, cannot communicate right now. Full neuro examination was not possible. LABORATORY DATA: Noted today - white count was 6.54, H&H 9.4/29.7 and platelet was 263-265. Arterial blood gas - pH 7.26, pCO2 of 44, pO2 240. Chemistry: Sodium 138, potassium 4.6, chloride 105, carbon dioxide 23, BUN 27, and creatinine 3.12, random glucose 120. AST less than 6 and alkaline phosphatase 143, albumin 1.4. INR is 3.1, APTT 131 with PT ratio 5.0. Lactic acid elevated at 4. IMAGING DATA: Chest x-ray - right lung opacity, likely secondary to aspiration. KUB x-ray - abdomen is full of stool, dilated bowel loops secondary to maybe obstruction. EKG - not in the chart yet. IMPRESSION AND PLAN: 1. Status post cardiac arrest, likely secondary to aspiration. The patient intubated in the Emergency Room, noted to have a very low blood pressure, may be having sepsis, started on intravenous pressure agents following IV fluid and she was transferred to intensive care unit for further management. 2. Probable sepsis with septic shock. Thus, her abdomen is distended. She is status post recent surgery. We will have to get a CAT scan of the abdomen to find out any intra-abdominal pathology. Started on broad spectrum antibiotics with vancomycin, aztreonam and levofloxacin. 3. Diabetes type 1, on insulin. Continue with sliding scale insulin while she is in the hospital. She is n.p.o. right now. 4. End-stage renal disease on hemodialysis. We will consult heater helper forge and continue with the hemodialysis. 5. Hypertension. She is hypotensive now. Blood pressure medicine on hold. She is getting pressor agents. When the pressure comes up, she will be started with her oral medications. 6. Abdominal distention, status post laparotomy and washout of multiple abdominal abscesses. She has multiple drainages in the abdomen. She will get a CAT scan and depending on that she may be consulted with the surgeon and she may need to be transferred to [place], if she requires any kind of surgery. 7. Gastrointestinal prophylaxis with intravenous Protonix. 8. Deep venous thrombosis prophylaxis with subcutaneous heparin. 9. Code status -- She will be full code. In my clinical assessment, the beneficiary meets criteria as per CMS for 2-midnight stay in the hospital. GRACE
[2018-01-27 05:08] LABS: INR 2.6 (0.9-1.1); PTT PATIENT 39.4 SECONDS (21.0-31.0)
[2018-01-27] MEDS ORDERED: GLUCAGON FOR INJ 1 MG VIAL SQ PRN (05:15)
[2018-01-27] MEDS ORDERED: GLUCOSE 40% GEL 15 GM TUBE PO PRN (05:15)
[2018-01-27] MEDS ORDERED: DEXTROSE 50% 50 ML SYR IV PRN (05:15)
[2018-01-27] MEDS ORDERED: GLUCOSE 10 TABS/TUBE PO PRN (05:15)
[2018-01-27 05:21] LABS: ALBUMIN 1.3 gm/dl (3.4-5.0); ALT/SGPT < 6 U/L (12-78); AST/SGOT 25 U/L (15-37); BLOOD UREA NITROGEN 28 mg/dl (7-18); CARBON DIOXIDE 21 mmol/L (21-32); CREATININE 3.13 mg/dl (0.60-1.20); GLUCOSE 166 mg/dl (70-99); POTASSIUM 4.3 mmol/L (3.5-5.1); SODIUM 137 mmol/L (136-145)
[2018-01-27 05:24] LABS: ALKALINE PHOSPHATASE 153 U/L (45-117); PHOSPHORUS 4.9 mg/dl (2.5-4.9)
[2018-01-27 05:35] LABS: BASO % 0.3 %; BASO ABS # 0.01 K/uL (0-0.2); IG# 0.03 K/uL (0.00-0.02); LYMPH % 7.4 %; LYMPH ABS # 0.28 K/uL (1.2-3.4); MONO % 2.9 %; MONO ABS # 0.11 K/uL (0.11-0.59); NEUT % 88.6 %; NEUT ABS # 3.34 K/uL (1.4-6.5)
[2018-01-27] MEDS ORDERED: HEPARIN SOD 5000 UNIT/0.5 ML CARP SQ SCH (06:00)
[2018-01-27] MEDS ORDERED: PHARMACY GLYCEMIC MGMT CONSULT PRN (06:01)
--- NOTE | 2018-01-27 06:36 | DIAGNOSTIC IMAGING REPORT ---
CT OF THE ABDOMEN AND PELVIS WITHOUT CONTRAST, STONE PROTOCOL CLINICAL HISTORY: Abdominal pain and distention. Recent surgery. COMPARISON STUDY: CT of the abdomen and pelvis January 02, 2018. TECHNIQUE: Helical axial images of the abdomen and pelvis were obtained without IV or oral contrast according to renal stone protocol. A dose lowering technique was utilized adhering to the principles of ALARA. FINDINGS: The chest CT will be reported separately. However, visualized portions of the chest demonstrate bilateral pleural effusions with associated subpleural opacities which may reflect atelectasis or consolidation. There are groundglass opacities within the aerated portions of the lungs. The tip of the nasogastric tube projects over the gastric cardia. The tube could be advanced 3 cm. Evaluation of the abdomen and pelvis is suboptimal given the lack of IV contrast. There is oral contrast within portions of small and large bowel. Anasarca is noted. There are gallstones within the gallbladder. Numerous pancreatic parenchymal calcifications are noted with glandular atrophy. Both kake kidneys are atrophic. Unenhanced images of the spleen, adrenal glands are unremarkable. There is extensive atherosclerotic calcification. There are skin dawna from recent laparotomy. No pneumatosis, free air or portal venous gas is present. The majority of the small bowel is moderately dilated and fluid-filled. There is contrast within portions of the distal small bowel as well as the colon. However, the distal small bowel is decompressed and feces is noted within a distal small bowel loop. The findings could reflect a small bowel obstruction or an ileus. There is contrast within the appendix. Doran balloon is present within the bladder. There are no suspicious osseous lesions. There is no fluid collection to suggest an abscess on this unenhanced exam. There is trace ascites. IMPRESSION: 1. Suboptimal evaluation given lack of IV contrast, paucity of intra-abdominal fat and generalized anasarca. 2. Majority of small bowel mildly dilated fluid filled with decompressed distal small bowel loops. However, contrast within portions of the colon and distal small bowel. Possible transition point within the right lower quadrant. The findings could reflect a small bowel obstruction. However, an ileus could appear similar. 3. Cholelithiasis. 4. Findings suggestive of chronic pancreatitis. 5. Nasogastric tube projects of the gastric cardia. The tube could be advanced 3 cm. 6. Trace ascites. 7. Markedly atrophic kidneys. Electronically signed by: Samir Dougherty M.D. 01/27/2018 6:35 AM Dictated Date/Time: 01/27/2018 6:23 AM
--- NOTE | 2018-01-27 06:41 | DIAGNOSTIC IMAGING REPORT ---
CHEST ONE VIEW PORTABLE CLINICAL HISTORY: S/P INTUBATION /OGT. COMPARISON STUDY: Chest radiograph January 27, 2018 at 12:31 AM FINDINGS: Tip of endotracheal tube is 2.3 cm above the leodan. A dual lumen right internal jugular dialysis catheter is in place. Tip of nasogastric tube projects over the gastric cardia. The tube could be advanced 3 cm. Vascular stents project over the left axilla and proximal left upper extremity. There is no pneumothorax. There are bilateral pleural effusions with associated bibasilar opacities. There is interstitial thickening. IMPRESSION: 1. Tip of endotracheal tube 2.3 cm above the leodan. 2. Tip of nasogastric tube projects over the gastric cardia. The tube could be advanced 3 cm. 3. Bilateral pleural effusions with associated bibasilar opacities which may reflect atelectasis or consolidation. 4. Suspected mild pulmonary edema. Electronically signed by: Samir Dougherty M.D. 01/27/2018 6:40 AM Dictated Date/Time: 01/27/2018 6:37 AM
--- NOTE | 2018-01-27 06:53 | DIAGNOSTIC IMAGING REPORT ---
KUB CLINICAL HISTORY: Abdominal distention. Recent surgery. COMPARISON STUDY: Abdominal series and chest radiograph January 03, 2018. FINDINGS: Multiple loops of moderately dilated small bowel are noted. There is oral contrast within portions of small and large bowel. Surgical skin dawna from laparotomy are noted. Calcifications projecting over the upper abdomen were shown to reflect pancreatic parenchymal calcifications on prior CT. Severe degenerative changes of both hips are incidentally noted. IMPRESSION: Moderate small bowel dilatation. The findings may reflect a small bowel obstruction or an ileus given recent surgery. Electronically signed by: Samir Dougherty M.D. 01/27/2018 6:51 AM Dictated Date/Time: 01/27/2018 6:50 AM
--- NOTE | 2018-01-27 06:55 | Critical Care Consultation ---
Critical Care Consultation Date of Consultation: Jan 27, 2018. Attending Physician: Bo Agrawal MD Reason for Consultation: 67-year-old female with end-stage renal disease on hemodialysis Saturday's presenting after cardiac arrest from respiratory mediated event and aspiration pneumonitis. Patient requiring vasoactive medications as well as multiple antibiotics and close hemodynamic monitoring. History of Present Illness Patient is a 67-year-old female with a significant past medical history of end- stage renal disease requiring hemodialysis on Mondays/Wednesdays/Fridays who recently underwent but appears to be an open laparotomy for intra-abdominal abscesses at [place] just before [facility]. She had subsequently improved enough for discharge where she was currently undergoing rehabilitation services at [facility]. Patient had actually shown great progression on until recently. Over the past 2 days, the patient has had no bowel movements. In addition, she is passing flatus. Patient became increasingly nauseous and had episodes of emesis today. Patient's daughter is at bedside and provides the history as the patient is intubated. She feels as though her mother aspirated during lunch today. She presented to the emergency department early this morning for increasing shortness of breath as well as nausea and vomiting. There was concern for bowel obstruction. During evaluation, the patient had increasing respiratory rate with increasing hypoxia. While being transferred to the trauma bay for intubation, the patient went pulseless and asystolic requiring compressions and 1 round of epinephrine with return of spontaneous circulation. Patient was intubated and suction of copious amounts of GI material was present. Patient received a total of 1000 cc of normal saline as well as IV Levaquin. Patient maintained her blood pressures while in the emergency department, however she did require the addition of Levophed to help maintain MAPs >60. Patient was subsequently transferred to the ICU via CT suite for CAT scan of her chest and abdomen. Interestingly, the patient has no acute leukocytosis. No significant anemia appreciated. There is no significant electrolyte derangements present. Elevated BUN and creatinine consistent with patient's history of end-stage renal disease. Troponin was not elevated. Chest x-ray concerning for bilateral lower lobe infiltrates RIGHT greater than left. On evaluation in the emergency department, the patient is able to nod yes and no to questions. She is alert and aware of her surroundings. She reports some pain at the central portion of her chest. She nods when asked if it feels sore from the compressions. She denies any abdominal discomfort. She offers no other positive review of systems, however limited secondary to patient's inability to answer complete sentences. Past Medical/Surgical History Medical Problems: (1) Acute appendicitis with rupture (2) Anemia (3) Aspiration of food (4) Benign hypertension with ESRD (end-stage renal disease) (5) Cardiac arrest (6) Diabetes (7) ESRD (end stage renal disease) on dialysis (8) ESRD on dialysis (9) Hyperparathyroidism due to ESRD on dialysis (10) Hypertension (11) Liver failure (12) Pulmonary edema (13) Renal failure (14) Secondary hyperparathyroidism of renal origin (15) Von Willebrand disease Family History No pertinent family history Noncontributory Social History Smoking Status: Never Smoker Smokeless Tobacco Use: No Drug Use: none Marital Status: Housing Status: lives with family Occupation Status: retired Allergies Coded Allergies: Adhesives (Verified Allergy, Intermediate, RASH, 01/27/18) Amoxicillin (Verified Allergy, Intermediate, RASH, 01/27/18) Ampicillin (Verified Allergy, Intermediate, RASH, 01/27/18) Erythromycin (Verified Allergy, Intermediate, RASH, 01/27/18) Etodolac (Verified Allergy, Intermediate, RASH, 01/27/18) Penicillins (Verified Allergy, Intermediate, RASH, 01/27/18) Sulfa Antibiotics (Verified Allergy, Intermediate, RASH, 01/27/18) Aspirin (Verified Allergy, Mild, RASH, 01/27/18) Sevelamer (Verified Allergy, Mild, rash, 01/27/18) Home Medications Scheduled Calcium Carbonate (Tums), 1,000 MG PO DAILY Cefazolin In D5w (Cefazolin Sodium), 2 GM IV 3XWK Cholecalciferol (Vitamin D3), 1 TAB PO DAILY Ciprofloxacin HCl (Ciprofloxacin), 500 MG PO DAILY Docusate Sodium (Colace), 1 CAP PO BID Famotidine (Pepcid), 20 MG PO DAILY Furosemide (Lasix), 80 MG PO 4XWK Hydralazine Hcl (Apresoline), 10 MG PO Q8 Insulin Aspart (Novolog Flexpen), UNITS SQ TIDM Insulin Glargine (Lantus Solostar), 7 UNITS SC DAILY Lisinopril (Zestril), 40 MG PO DAILY Metoprolol Tartrate (Lopressor) (Lopressor), 50 MG PO Q12 Metronidazole (Flagyl), 500 MG PO DAILY Polyethylene Glycol 3350 (Miralax), 17 GM PO DAILY Senna/Docusate Sod (Senokot S), 1 TAB PO DAILY Scheduled PRN Acetaminophen (Tylenol), 1 TAB PO Q4 PRN for Mild Pain Ondansetron Hcl (Zofran), 4 MG PO Q6 PRN for Nausea Oxycodone/Acetaminophen 10MG/325MG (Percocet 10MG/325MG), 1 TAB PO Q4 PRN for pain scale 7-10 Oxycodone/Acetaminophen 5MG/325MG (Percocet 5MG/325MG), 1 TAB PO Q4 PRN for pain scale 4-6 Current Inpatient Medications Current Inpatient Medications Medications (Trade) Dose Ordered Sig/Eduardo Route Start Time Stop Time Status Last Admin Dose Admin Miscellaneous Information (Consult) 1 ea UD PRN N/A 01/27/18 02:15 02/26/18 02:14 Fentanyl Citrate (Fentanyl Inj) 25 mcg Q1H PRN IV 01/27/18 02:30 02/10/18 02:29 Norepinephrine Bitartrate 8 mg/ Dextrose 508 ml @ 0 mls/hr Q0M PRN IV 01/27/18 02:29 02/26/18 02:28 Ranitidine HCl (zANTac SYRUP) 300 mg HS PO 01/27/18 21:00 02/26/18 20:59 Pantoprazole Sodium 40 mg/ Syringe 10 ml @ 5 mls/min DAILY IV 01/27/18 09:00 02/26/18 08:59 Levalbuterol (Xopenex 1.25MG/ 0.5ML Neb) 1.25 mg Q4R INH 01/27/18 04:00 02/26/18 03:59 Ipratropium [place] (Atrovent 0.02% 0.5MG/2.5ML Neb) 0.5 mg Q4R INH 01/27/18 04:00 02/26/18 03:59 Miscellaneous Information (Icu Protocol For Hyperglycemia) 1 ea PRN PRN N/A 01/27/18 02:30 01/29/18 02:29 Propofol (Diprivan Iv Emulsion 100ml Vial) 1 dose UD PRN IV 01/27/18 03:04 01/30/18 03:03 Heparin Sodium (Porcine) (Heparin Sq 5000 Unit/0.5ml) 5,000 unit Q8H SQ 01/27/18 06:00 02/26/18 05:59 Imipenem/ Cilastatin Sodium (Consult) 1 ea UD PRN N/A 01/27/18 04:15 02/26/18 04:14 Levofloxacin (Consult) 1 ea UD PRN N/A 01/27/18 04:15 02/26/18 04:14 Parenteral Electrolyte Solution 1,000 ml @ 75 mls/hr [id number] IV 01/27/18 04:15 02/26/18 04:14 Insulin Aspart (novoLOG ASPART) SLIDING SCALE If C... Q6 SC 01/27/18 12:00 02/26/18 11:59 UNV Glucose (Glucose 40% Gel) 15-30 GRAMS 15 GRAMS... UD PRN PO 01/27/18 05:15 02/26/18 05:14 Glucose (Glucose Chew Tab) 4-8 Tablets 4 Tabl... UD PRN PO 01/27/18 05:15 02/26/18 05:14 Dextrose (Dextrose 50% 50ML Syringe) 25-50ML OF 50% DW IV FOR... UD PRN IV 01/27/18 05:15 02/26/18 05:14 Glucagon (Glucagon Inj) 1 mg UD PRN SQ 01/27/18 05:15 02/26/18 05:14 Miscellaneous Information (Consult Glycemic Management Pharmacy) 1 ea DAILY PRN N/A 01/27/18 06:01 02/26/18 06:00 Review of Systems Limited secondary to patient's inability to complete full sentences. Physical Exam Date Time Temp Pulse Resp B/P (MAP) Pulse Ox O2 Delivery O2 Flow Rate FiO2 01/27/18 05:16 90 28 111/36 (61) 100 Mechanical Ventilator 65 01/27/18 05:01 89 33 104/36 (58) 100 Mechanical Ventilator 65 01/27/18 04:59 89 36 105/36 (59) 98 Mechanical Ventilator 60 01/27/18 04:46 91 35 99/39 (59) 99 Mechanical Ventilator 60 01/27/18 04:31 88 33 88/53 (65) 98 Mechanical Ventilator 60 4/9/18 04:25 89 35 89/52 (64) 100 Mechanical Ventilator 60 18 04:16 88 34 84/49 (61) 98 Mechanical Ventilator 60 18 04:08 90 35 78/51 (60) 96 Mechanical Ventilator 60 18 04:01 94 31 85/52 (63) 100 Mechanical Ventilator 60 01/27/18 04:00 97 32 93/54 (67) 94 Mechanical Ventilator 60 18 03:46 92 34 90/54 (66) 98 Mechanical Ventilator 60 18 03:31 98 33 104/68 (80) 100 Mechanical Ventilator 100 01/27/18 03:23 60 01/27/18 03:16 93 36 96/67 (77) 100 Mechanical Ventilator 100 01/27/18 03:10 Mechanical Ventilator 60 01/27/18 03:09 01/27/18 03:09 36.4 91 29 99/60 (73) 100 Mechanical Ventilator 100 01/27/18 02:41 94/62 01/27/18 02:39 88 29 100 Mechanical Ventilator 01/27/18 02:36 103/63 01/27/18 02:34 88 30 100 01/27/18 02:32 100 01/27/18 02:31 92/65 01/27/18 02:29 89 28 100 01/27/18 02:24 90 24 100 Mechanical Ventilator 01/27/18 02:22 91 21 100 01/27/18 02:21 100/58 01/27/18 02:20 91 29 100 01/27/18 02:18 91 27 01/27/18 02:16 89 18 97/53 100 Mechanical Ventilator 01/27/18 02:16 90 31 97/53 01/27/18 02:14 92 33 01/27/18 02:12 91 29 01/27/18 02:12 91 29 01/27/18 02:11 90/54 01/27/18 02:11 90/54 01/27/18 02:10 92 27 01/27/18 02:09 82/53 01/27/18 02:06 71/49 01/27/18 02:01 94 01/27/18 02:01 65/47 01/27/18 02:00 Mechanical Ventilator 100 01/27/18 01:57 94 26 01/27/18 01:56 75/50 01/27/18 01:55 95 Nasal Cannula 3.0 01/27/18 01:52 36.2 81 22 115/52 96 Nasal Cannula 3.0 01/27/18 01:51 86/58 01/27/18 01:48 98 01/27/18 01:47 97/52 01/27/18 01:42 110 22 01/27/18 01:41 133/73 01/27/18 01:36 148/68 01/27/18 01:31 144/73 01/27/18 01:28 173/77 01/27/18 01:27 114 23 94 01/27/18 01:25 200/94 01/27/18 01:24 207/99 01/27/18 01:23 120 01/27/18 01:21 102 01/27/18 01:21 97 01/27/18 01:20 119 01/27/18 01:13 44 01/27/18 01:12 44 01/27/18 01:02 96 Nasal Cannula 3.0 01/27/18 00:06 76 VITAL SIGNS - Vital signs and nursing notes were reviewed. GENERAL - 67-year-old female appearing her stated age who is in no acute distress. Intubated. SKIN - Without rashes. HEAD - NC/AT. EYES - PERRL with EOMI bilaterally. Sclera anicteric. EARS - No deformities of external structures noted on gross examination bilaterally. NOSE - Midline and without cyanosis. MOUTH/OROPHARYNX - Without perioral cyanosis. Intubated. NECK - Neck with FROM. Supple to palpation. LUNGS - Chest wall symmetric without accessory muscle use, intercostals retractions, or central cyanosis. Normal vesicular breath sounds CTA B/L. Course breath sounds. CARDIAC - RRR with S1/S2. No murmur, rubs, or gallops appreciated. ABDOMEN - Abdominal contour distended. No bowel sounds noted. EXTREMITIES - No clubbing or peripheral cyanosis. Bilateral lower extremity edema present. +3/5 radial dorsalis pedis pulses palpated throughout. NEUROLOGIC - Cranial nerves II through XII grossly intact. Laboratory Results Last 24 Hours Test 01/27/18 00:41 01/27/18 00:42 01/27/18 00:44 01/27/18 01:13 White Blood Count 6.54 K/uL Red Blood Count 3.01 M/uL Hemoglobin 9.4 g/dL Hematocrit 29.7 % Mean Corpuscular Volume 98.7 fL Mean Corpuscular Hemoglobin 31.2 pg Mean Corpuscular Hemoglobin Concent 31.6 g/dl Platelet Count 265 K/uL Mean Platelet Volume 8.8 fL Neutrophils (%) (Auto) 80.1 % Lymphocytes (%) (Auto) 9.8 % Monocytes (%) (Auto) 9.3 % Eosinophils (%) (Auto) 0.0 % Basophils (%) (Auto) 0.2 % Neutrophils # (Auto) 5.24 K/uL Lymphocytes # (Auto) 0.64 K/uL Monocytes # (Auto) 0.61 K/uL Eosinophils # (Auto) 0.00 K/uL Basophils # (Auto) 0.01 K/uL RDW Standard Deviation 66.8 fL RDW Coefficient of Variation 18.6 % Immature Granulocyte % (Auto) 0.6 % Immature Granulocyte # (Auto) 0.04 K/uL Red Blood Cell Morphology Unremarkable Prothrombin Time 31.5 SECONDS Prothromb Time International Ratio 3.1 Activated Partial Thromboplast Time 131.2 SECONDS Partial Thromboplastin Ratio 5.0 Venous Blood pH 7.33 Venous Blood Partial Pressure CO2 45 mmHg Venous Blood Partial Pressure O2 42 mmHg Venous Blood HCO3 23 mmol/L Venous Blood Oxygen Saturation 72.0 % Venous Blood Base Excess -3.2 mEq/L Sodium Level 138 mmol/L Potassium Level 4.6 mmol/L Chloride Level 105 mmol/L Carbon Dioxide Level 23 mmol/L Anion Gap 10.0 mmol/L Blood Urea Nitrogen 27 mg/dl Creatinine 3.12 mg/dl Estimated GFR () 16.9 Estimated GFR (Non- 14.6 BUN/Creatinine Ratio 8.5 Random Glucose 120 mg/dl Calcium Level 8.1 mg/dl Total Bilirubin 0.4 mg/dl Aspartate Amino Transf (AST/SGOT) 19 U/L Alanine Aminotransferase (ALT/SGPT) < 6 U/L Alkaline Phosphatase 143 U/L Troponin I 0.022 ng/ml Total Protein 5.3 gm/dl Albumin 1.4 gm/dl Globulin 3.9 gm/dl Albumin/Globulin Ratio 0.4 Procalcitonin 1.34 ng/ml Bedside Lactic Acid Venous 2.35 mmol/L Bedside Glucose 118 mg/dl Test 01/27/18 01:51 01/27/18 04:49 01/27/18 05:02 Arterial Blood pH 7.26 Arterial Blood Partial Pressure CO2 44 mmHg Arterial Blood Partial Pressure O2 240 mm/Hg Arterial Blood HCO3 19 mmol/L Arterial Blood Oxygen Saturation 99.2 % Arterial Blood Base Excess -7.5 mEq/L Arterial Blood Gas Delivery 100% Marcio Test POS Pass Lactic Acid Level 4.0 mmol/L 2.7 mmol/L White Blood Count 3.77 K/uL Red Blood Count 3.17 M/uL Hemoglobin 9.7 g/dL Hematocrit 31.0 % Mean Corpuscular Volume 97.8 fL Mean Corpuscular Hemoglobin 30.6 pg Mean Corpuscular Hemoglobin Concent 31.3 g/dl Platelet Count 265 K/uL Mean Platelet Volume 8.6 fL Neutrophils (%) (Auto) 88.6 % Lymphocytes (%) (Auto) 7.4 % Monocytes (%) (Auto) 2.9 % Eosinophils (%) (Auto) 0.0 % Basophils (%) (Auto) 0.3 % Neutrophils # (Auto) 3.34 K/uL Lymphocytes # (Auto) 0.28 K/uL Monocytes # (Auto) 0.11 K/uL Eosinophils # (Auto) 0.00 K/uL Basophils # (Auto) 0.01 K/uL RDW Standard Deviation 66.8 fL RDW Coefficient of Variation 18.6 % Immature Granulocyte % (Auto) 0.8 % Immature Granulocyte # (Auto) 0.03 K/uL Toxic Vacuolation 1+ Prothrombin Time 26.9 SECONDS Prothromb Time International Ratio 2.6 Activated Partial Thromboplast Time 39.4 SECONDS Partial Thromboplastin Ratio 1.5 Sodium Level 137 mmol/L Potassium Level 4.3 mmol/L Chloride Level 106 mmol/L Carbon Dioxide Level 21 mmol/L Anion Gap 10.0 mmol/L Blood Urea Nitrogen 28 mg/dl Creatinine 3.13 mg/dl Est Creatinine Clear Calc Drug Dose 13.6 ml/min Estimated GFR () 16.9 Estimated GFR (Non- 14.6 BUN/Creatinine Ratio 8.9 Random Glucose 166 mg/dl Calcium Level 8.0 mg/dl Phosphorus Level 4.9 mg/dl Magnesium Level 1.8 mg/dl Total Bilirubin 0.5 mg/dl Direct Bilirubin 0.1 mg/dl Aspartate Amino Transf (AST/SGOT) 25 U/L Alanine Aminotransferase (ALT/SGPT) < 6 U/L Alkaline Phosphatase 153 U/L Total Protein 5.0 gm/dl Albumin 1.3 gm/dl Blood Gas Sample Site Art Line Bedside Blood Gas pH (LAB) 7.30 Bedside Blood Gas pCO2 (LAB) 43 mmHg Bedside Blood Gas pO2 (LAB) 62 mmHg Bedside Blood Gas HCO3 (LAB) 21 meq/L Bedside Blood Gas Total CO2 22 mEq/l Bedside Blood Gas Base Excess (LAB) -5.0 meq/L Bedside Blood Gas O2 Saturation 88.0 % Oxygen Delivery Device Ventilator Bedside Oxygen Rate (breaths/min) 18 Blood Gas Minute Ventilation 12.8 Bedside FiO2 60 % Blood Gas Tidal Volume 400 Blood Gas PEEP 5 Diagnostic Results Chest x-ray reviewed with the emergency department demonstrates infiltrates to the bilateral lower lobes RIGHT greater than left. No other acute findings per my interpretation. Radiologist's impression unavailable at the time of dictation. Radiological imaging and reports were reviewed by myself. Radiologist's Interpretation per [facility] as follows: Endotracheal tube tip approximately 2 cm from the leodan. Right sided catheter with tip near the superior cavoatrial junction. The enteric tube tip is at the level of the distal esophagus. Recommended advancing. Moderate bilateral pleural effusions with adjacent atelectasis/consolidation. Nonspecific nodular groundglass opacities in the lungs bilaterally. Consider typical or atypical infectious processes. CT abdomen/pelvis CT for additional details. Enteric tube tip in the distal esophagus. Recommend advancing. Multiple dilated loops of small bowel concerning for obstruction or ileus. Transition point difficult to localize. Colon does fill with oral contrast. Diffuse mesenteric edema. Cholelithiasis. Pancreatic calcifications likely related to chronic pancreatitis. Severely atrophic kidneys bilaterally. Nonobstructing nephrolith in the left kidney. Doran catheter decompresses the urinary bladder. Anasarca. Assessment & Plan (1) Ileus following gastrointestinal surgery (2) Cardiac arrest (3) ESRD on dialysis (4) Aspiration of food (5) Cardiac arrest (6) Septic shock (7) Aspiration pneumonia (8) Von Willebrand disease (9) SBO (small bowel obstruction) Reason Critically Ill: 67-year-old female with end-stage renal disease on hemodialysis Saturday's presenting after cardiac arrest from respiratory mediated event and aspiration pneumonitis. Patient requiring vasoactive medications as well as multiple antibiotics and close hemodynamic monitoring. Neuro - * CAM ICU: NEGATIVE * RASS -1 * Sedation: Propofol 10mcg/Fentanyl 25 mcg PRN * Sternal CP s/p Compressions - Fentanyl PRN Cardiac - * Cardiac Arrest w/ ROSC: * Aspiration event resulting in hypoxia --> arrest. Epi x1 w/ compressions w/ ROSC. * Hypotension requiring Levophed - titrate to MAPs >60 * Hypotension 2/2 CKD, Aspiration event, sepsis. * Initial Trop negative - will trend. * EKG SR 75bpm w/ ST flattening laterally, QTc 450ms. * Add AM Echo. * Monitor on Telemetry. Respiratory - * Acute Hypoxic Respiratory failure 2/2 Aspiration event and likely hypoventilation 2/2 SBO: * Currently intubated for airway protection s/p cardiac arrest. * Vent: AC/18/400/5/65% * CXR - aspiration pneumonia - lower lobe consolidation. * Abx (see ID). * Atrovent/Albuterol * Encouraged rotating side to side 45' to aid in ventilation. GI - * Status Post Open Laparoscopy w/ Washout 2/2 intraabdominal abscesses: * CT - SBO/Ileus. * Conservative measures per Gen Surgery. * OG tube to Lower-intermittent suction. * Gentle IVF * Check Intraabdominal Pressures in the setting of distention w/ recent Sx. RENAL/LYTES - * CKD on HD M/W/F: * No significant electrolyte derangement. * Nephro consult for HD management. * IVF: Normosol@75mL/hr - * Essential anuric at baseline: * Doran in place. * Intraabdominal pressures. ENDO - * DMII: * ISS --> gtt per protocol. * h/o Hyperparathyroidism 2/2 CKD HEME - * Stable H&H at this point. * PTT/INR 131.2/3.1 - will repeat as labs drawn from dialysis port. ID - * Aspiration Pneumonia, Recent GI Surgery, Temporary HD Cath: * Blood Cultures x2 * Imipenem, Vanc, Levaquin * ProCal 1.34 * Lactic Acid 4.1 --> 2.7 LINES/IV ACCESS - * PIVs x2 * RIGHT SC HD Cath * RIGHT Rad Art Line * Doran DVT PROPHYLAXIS - * Hold on chemoprophylaxis 2/2 PTT/INR I have personally spent 60 minutes of critical care time in the direct management of this patient. This is a life/limb threatening event. This includes time spent evaluating patient, direct bedside care, chart review, placing orders, interpretation of diagnostic studies, discussion with consultants, patient, and family members, as well as other required patient management activities. This time is exclusive of all separately billable procedures, and teaching time and separate from and in addition to any other critical care service time. Thank you for this consultation allow us to be part of this patient's care. Please refer to my attending physician's documentation for any further recommendations. I have personally evaluated and examined this patient. I agree with assessment and plan of Genia Fox PA-C. Patient was discussed on multidisciplinary rounds. We will switch the patient's sedation from propofol to intermittent bolus sedation secondary to increasing vasoactive medication requirement Wean the Levophed as possible Bronchoscopy completed today consistent with aspiration pneumonitis as well as possible pneumonia empiric antibiotics to continue at this point until lavage results Discussed briefly with general surgery, maintain NG tube for possible small bowel obstruction versus ileus Discussed with Dr. Decker of nephrology plan for hemodialysis tomorrow -I have discontinued the maintenance fluids at this time -Discussed the usage of the patient's temporary hemodialysis catheter for vasoactive access with nephrology, this is permissible as her fistula is malfunctioning and they plan to discontinue the temporary HD catheter in the near future I updated the family and discuss prognosis. The patient's daughter reports that the patient has only wanted 3 days maximum on the ventilator. I will reassess if the patient does make it to 3 days, I anticipate that this may be a reversible event, however, given the multifactorial nature and recent abdominal surgery this may necessitate a more nuance discussion to determine the exact patient's goals. I have personally spent 50 minutes of critical care time in the direct management of this patient. This is a life/limb threatening event. This includes time spent evaluating patient, direct bedside care, chart review, placing orders, interpretation of diagnostic studies, discussion with consultants, patient, and/or family members regarding treatment decisions, as well as other required patient management activities. This time is exclusive of all separately billable procedures, and teaching time and separate from and in addition to any other critical care service time. Problem Qualifiers (1) Aspiration of food: Encounter type: initial encounter Qualified Codes: T17.890A - Other foreign object in other parts of respiratory tract causing asphyxiation, initial encounter (2) Aspiration pneumonia: Aspiration pneumonia type: due to gastric secretions Laterality: bilateral Lung location: unspecified part of lung Qualified Codes: J69.0 - Pneumonitis due to inhalation of food and vomit
--- NOTE | 2018-01-27 06:59 | DIAGNOSTIC IMAGING REPORT ---
CHEST ONE VIEW PORTABLE CLINICAL HISTORY: Sepsis COMPARISON STUDY: Chest radiograph January 03, 2018. FINDINGS: A dual lumen right internal jugular dialysis catheter is in place. There are vascular stents within the left axilla and proximal left upper extremity. There is no pneumothorax. Small to moderate bilateral pleural effusions are noted with associated bibasilar opacities. There is pulmonary vascular congestion without overt edema. Moderate small bowel dilatation is noted within visualized portions of the upper abdomen. IMPRESSION: 1. Small to moderate bilateral pleural effusions with associated bibasilar opacities that could reflect pneumonia or atelectasis. 2. Pulmonary vascular congestion without overt edema. 3. Moderate small bowel dilatation within visualized portions of the abdomen which could reflect a small bowel obstruction or ileus. Electronically signed by: Samir Dougherty M.D. 01/27/2018 6:57 AM Dictated Date/Time: 01/27/2018 6:51 AM
[2018-01-27] MEDS: IPRATROPIUM BROMIDE HFA INHALER INH SCH ×5 (07:15→22:55)
[2018-01-27] MEDS: LEValbuterol HFA 15GM INHALER INH SCH ×5 (07:15→22:55)
--- NOTE | 2018-01-27 07:25 | DIAGNOSTIC IMAGING REPORT ---
(CHEST) THORAX WITHOUT CT DOSE: 509.40 mGy.cm CLINICAL HISTORY: 67 years-old Female with aspriation event/arrest. Acute aspiration with thoracic TECHNIQUE: Multiaxial CT images of the chest were performed without contrast. A dose lowering technique was utilized adhering to the principles of ALARA. COMPARISON: CT chest 12/19/2017, CT abdomen and pelvis 01/27/2018. FINDINGS: On the manager agency image, mildly dilated loops of bowel are noted with midline skin dawna. Study is mildly motion degraded. Endotracheal tube is noted within the distal thoracic trachea terminating 1.4 cm proximal to the leodan. Enteric tube terminates within the proximal gastric lumen. Right internal jugular central venous catheter terminates within the SVC just superior to the superior cavoatrial junction. The heart is normal in size with coronary arterial disease. No aortic aneurysm identified. Mild to moderate atherosclerosis of the aorta. The unopacified pulmonary artery is unremarkable. Evaluation for adenopathy is limited without the use of IV contrast. No definite pathologic adenopathy identified. Moderate sized bilateral pleural effusions with dependent bilateral segmental consolidation and central air bronchograms. No endobronchial mass lesions identified. There is no pneumothorax or overt pulmonary edema. Multi segmental multilobar distribution of nodular, groundglass and consolidative opacities are present within a bronchovascular distribution favoring a mid and lower lung zone predominant distribution. There is relative sparing of the lung apices. Calcifications and atrophy of the pancreas suggest prior pancreatitis. Renal atrophy. Cholelithiasis. Moderate diffuse body wall edema with mild abdominal ascites. Anterior midline skin dawna are partially imaged. Degenerative changes are seen about the shoulders and spine. Left subclavian stent graft. IMPRESSION: 1. Moderate-sized bilateral pleural effusions with bibasilar dependent consolidation suggests compressive atelectasis. 2. Multi segmental multilobar distribution of nodular, groundglass and consolidative opacities within a bronchovascular pattern favors a mid and lower lung zone predominant distribution. These findings suggest an infectious or inflammatory pneumonitis. 3. Endotracheal tube terminates 1.4 cm proximal to the leodan. 4. Enteric tube terminates within the proximal gastric body. 5. Additional findings as above. Electronically signed by: Ranjit Mcdnaiel M.D. 01/27/2018 7:23 AM Dictated Date/Time: 01/27/2018 7:14 AM
--- NOTE | 2018-01-27 07:50 | Procedure Note ---
Procedure Note Procedure Date Jan 27, 2018. Procedure Description Procedure Name: A-line Procedure time out: side/site verified, patient ID confirmed, correct procedure Consent obtained: emergent consent implied Performed by: physician car rental manager Indications: diagnostic, therapeutic Contraindications: none Description: Procedure: Arterial Line Placement Attending: Dr. Molina APC: Efra Fox PA-C Indication: Monitoring on Pressors Anesthesia: Lidocaine 1% Emergent consent implied 2/2 need for close BP monitoring. A time-out was completed verifying correct patient, procedure, site, positioning , and implant(s) or special equipment if applicable. Marcio's test was performed to ensure adequate perfusion. Patient's RIGHT wrist was prepped and draped in the usual sterile fashion. Ultrasound guidance was used to aid needle placement. A 20g Arrow arterial line was introduced into the Radial artery. Catheter was threaded, and the needle was removed with appropriate blood return. Good waveform was observed. The patient tolerated the procedure well. Confirmation of placement with ultrasound. Blood Loss: Minimal Complications: None Procedural Ultrasound Guidance: Procedure Date: 01/27/2018 Indication: HD monitoring/pressors Attending: Dr. Molina APC: Efra Fox PA-C Artery Identified: YES Line confirmed in Artery with ultrasound: YES Complications: NONE Patient tolerated procedure: WELL Complications: none Patient tolerated procedure: well Post-procedure vital signs: reviewed and stable
[2018-01-27] MEDS: INSULIN ASPART 100 UNITS/ML 3 ML PEN SC SCH ×4 (08:00→20:57)
[2018-01-27] MEDS ORDERED: INSULIN GLARGINE SOLOSTAR 100 UNITS/ML 3 ML PEN SC ONE (08:15)
[2018-01-27] MEDS: PANTOprazole INJ 40 MG in SYRINGE 0 ML IV SCH (08:55)
[2018-01-27] MEDS ORDERED: VANCOMYCIN IV 1,000 MG in SODIUM CHLORIDE 0.9% 250ML 250 ML IV SCH (09:00)
--- NOTE | 2018-01-27 09:43 | Cardiology Consultation ---
Cardiology Consultation Date of Consultation: Jan 27, 2018 Requesting Physician: Genia Coronado PA-C Attending Law Firm Administrator: Dr. Cantu (Altagracia Patel PA-C) History of Present Illness Patient is a 67 year old female currently intubated in the ICU. ROS not able to be performed. Information obtained from inpatient/outpatient medical records. Past history of ESRD, on chronic HD 3 days per week, recent [place] acute abdominal [place] [facility] [place] Patient has been recovering at [facility]. Yesterday daughter reported possible aspiration event while eating lunch. She had worsening SOB and brought to ER for evaluation. On her way to CT scan for evaluation, she became hypoxic, and pulseless. 1 round of CPR, epi performed with return of circulation. Troponin negative initially. Apparently she also failed to have BM for several days. CT scan reveals SBO/ ileus. Per family, no prior history of cardiovascular disease, HI,or arrhythmias. They report she was admitted for "CHF" in November. Records reviewed. diagnosed with pulmonary edema with hypertensive urgency. Volume status improved wiht titration of dialysis settings. Discharged on home dose furosemide 80 mg daily. Echo at that time revealed Normal LV function, no significant valvular disease , grade I diastolic dysfunction on echo. (Altagracia Patel PA-C) Past Medical/Surgical History Problem List: Medical Problems: (1) Acute appendicitis with rupture (2) Anemia (3) Benign hypertension with ESRD (end-stage renal disease) (4) Diabetes (5) ESRD (end stage renal disease) on dialysis (6) ESRD on dialysis (7) Hyperparathyroidism due to ESRD on dialysis (8) Hypertension (9) Ileus following gastrointestinal surgery (10) Liver failure (11) Pulmonary edema (12) Renal failure (13) Secondary hyperparathyroidism of renal origin (14) Von Willebrand disease (Altagracia Patel PA-C) Family History No pertinent family history (Altagracia Patel PA-C) No pertinent family history (Timoteo Cantu, DO) Social History Smoking Status: Never Smoker Smokeless Tobacco Use: No Drug Use: none Marital Status: Housing Status: lives with significant other 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 (Altagracia Patel PA-C) Review Of Systems ROS not able to be performed. (Altagracia Patel PA-C) Allergies Coded Allergies: Adhesives (Verified Allergy, Intermediate, RASH, 01/27/18) Amoxicillin (Verified Allergy, Intermediate, RASH, 01/27/18) Ampicillin (Verified Allergy, Intermediate, RASH, 01/27/18) Erythromycin (Verified Allergy, Intermediate, RASH, 01/27/18) Etodolac (Verified Allergy, Intermediate, RASH, 01/27/18) Penicillins (Verified Allergy, Intermediate, RASH, 01/27/18) Sulfa Antibiotics (Verified Allergy, Intermediate, RASH, 01/27/18) Aspirin (Verified Allergy, Mild, RASH, 01/27/18) Sevelamer (Verified Allergy, Mild, rash, 01/27/18) Medications Reported Home Medications Medications Dose Route/Sig Max Daily Dose Days Date Category Dose Instructions Tums (Calcium Carbonate) 500 Mg Chew 1,000 Mg PO DAILY 01/27/18 Reported Novolog Flexpen (Insulin Aspart) 100 Units/Ml Inj Units SQ TIDM 01/27/18 Reported sliding scale BSG INSULIN IN UNITS 70-130 = GIVE 0 UNITS 131-180 = 2 UNITS 181-240 = 4 UNITS 241-300 = 6 UNITS 301-350 = 8 UNITS 351-400 = 10 UNITS > 400 = 12 UNITS, CALL Cefazolin Sodium (Cefazolin In D5w) 1 Inj Inj 2 Gm IV 3XWK 01/27/18 Reported give iv piggyback on mon/sat/fri after after dialysis last day 02/13/18 Ciprofloxacin (Ciprofloxacin HCl) 500 Mg Tab 500 Mg PO DAILY 01/27/18 Reported last day 02/13/18 Flagyl (Metronidazole) 500 Mg Tab 500 Mg PO DAILY 01/27/18 Reported last day 02/13/18 Tylenol (Acetaminophen) 500 Mg Tab 1 Tab PO Q4 PRN 01/27/18 Reported Colace (Docusate Sodium) 100 Mg Cap 1 Cap PO BID 01/27/18 Reported Lasix (Furosemide) 80 Mg Tab 80 Mg PO 4XWK 01/27/18 Reported take daily on tu,th,sat,sun...days she does not go to dialysis Apresoline (Hydralazine Hcl) 10 Mg Tab 10 Mg PO Q8 01/27/18 Reported Vitamin D3 (Cholecalciferol) 1,000 Unit Tab 1 Tab PO DAILY 01/27/18 Reported Lantus Solostar (Insulin Glargine) 100 Unit/Ml Inj 7 Units SC DAILY 01/27/18 Reported Zofran (Ondansetron HCl) 4 Mg Tab 4 Mg PO Q6 PRN 01/27/18 Reported Senokot S (Senna/Docusate Sodium) 1 Tab Tab 1 Tab PO DAILY 01/27/18 Reported Percocet 5MG/325MG (Oxycodone/Acetaminophen) Tab 1 Tab PO Q4 PRN 01/27/18 Reported Percocet 10MG/325MG (Oxycodone/Acetaminophen) Tab 1 Tab PO Q4 PRN 01/27/18 Reported Lopressor (Metoprolol Tartrate) 50 Mg Tab 50 Mg PO Q12 01/27/18 Reported Zestril (Lisinopril) 40 Mg Tab 40 Mg PO DAILY 01/27/18 Reported Pepcid (Famotidine) 20 Mg Tab 20 Mg PO DAILY 01/27/18 Reported Miralax (Polyethylene Glycol 3350) 1 Pow Pow 17 Gm PO DAILY 01/27/18 Reported (Altagracia Ptael, PA-C) Physical Exam Vital Signs (Last 8hrs): Last 8 Hrs Date Time Temp Pulse Resp B/P (MAP) Pulse Ox O2 Delivery O2 Flow Rate FiO2 01/27/18 07:38 65 01/27/18 06:01 88 31 89/35 (53) 99 Mechanical Ventilator 65 01/27/18 05:46 85 33 94/35 (54) 98 Mechanical Ventilator 65 01/27/18 05:31 88 34 103/39 (60) 98 Mechanical Ventilator 65 01/27/18 05:16 90 28 111/36 (61) 100 Mechanical Ventilator 65 01/27/18 05:15 65 01/27/18 05:01 89 33 104/36 (58) 100 Mechanical Ventilator 65 01/27/18 04:59 89 36 105/36 (59) 98 Mechanical Ventilator 60 01/27/18 04:46 91 35 99/39 (59) 99 Mechanical Ventilator 60 01/27/18 04:31 88 33 88/53 (65) 98 Mechanical Ventilator 60 01/27/18 04:25 89 35 89/52 (64) 100 Mechanical Ventilator 60 01/27/18 04:16 88 34 84/49 (61) 98 Mechanical Ventilator 60 01/27/18 04:08 90 35 78/51 (60) 96 Mechanical Ventilator 60 01/27/18 04:01 94 31 85/52 (63) 100 Mechanical Ventilator 60 01/27/18 04:00 97 32 93/54 (67) 94 Mechanical Ventilator 60 01/27/18 03:46 92 34 90/54 (66) 98 Mechanical Ventilator 60 01/27/18 03:31 98 33 104/68 (80) 100 Mechanical Ventilator 100 01/27/18 03:23 60 01/27/18 03:16 93 36 96/67 (77) 100 Mechanical Ventilator 100 01/27/18 03:10 Mechanical Ventilator 60 01/27/18 03:09 01/27/18 03:09 36.4 91 29 99/60 (73) 100 Mechanical Ventilator 100 01/27/18 02:41 94/62 01/27/18 02:39 88 29 100 Mechanical Ventilator 01/27/18 02:36 103/63 01/27/18 02:34 88 30 100 01/27/18 02:32 100 01/27/18 02:31 92/65 01/27/18 02:29 89 28 100 01/27/18 02:24 90 24 100 Mechanical Ventilator 01/27/18 02:22 91 21 100 01/27/18 02:21 100/58 01/27/18 02:20 91 29 100 01/27/18 02:18 91 27 01/27/18 02:16 89 18 97/53 100 Mechanical Ventilator 01/27/18 02:16 90 31 97/53 01/27/18 02:14 92 33 01/27/18 02:12 91 29 01/27/18 02:12 91 29 01/27/18 02:11 90/54 01/27/18 02:11 90/54 01/27/18 02:10 92 27 01/27/18 02:09 82/53 01/27/18 02:06 71/49 01/27/18 02:01 94 01/27/18 02:01 65/47 01/27/18 02:00 Mechanical Ventilator 100 01/27/18 01:57 94 26 01/27/18 01:56 75/50 01/27/18 01:55 95 Nasal Cannula 3.0 01/27/18 01:52 36.2 81 22 115/52 96 Nasal Cannula 3.0 01/27/18 01:51 86/58 01/27/18 01:48 98 01/27/18 01:47 97/52 01/27/18 01:42 110 22 01/27/18 01:41 133/73 01/27/18 01:36 148/68 01/27/18 01:31 144/73 General Appearance: Patient intubated Respiratory: course breath sounds, anteriorly Cardiovascular: Regular, no audible murmurs. Abdomen: decreased bowel sounds Extremities: 1 + pretibial edema (Altagracia Patel, TAMMY) Data Last 24 Hours Test 01/27/18 00:41 01/27/18 00:42 01/27/18 00:44 01/27/18 01:13 White Blood Count 6.54 K/uL Red Blood Count 3.01 M/uL Hemoglobin 9.4 g/dL Hematocrit 29.7 % Mean Corpuscular Volume 98.7 fL Mean Corpuscular Hemoglobin 31.2 pg Mean Corpuscular Hemoglobin Concent 31.6 g/dl Platelet Count 265 K/uL Mean Platelet Volume 8.8 fL Neutrophils (%) (Auto) 80.1 % Lymphocytes (%) (Auto) 9.8 % Monocytes (%) (Auto) 9.3 % Eosinophils (%) (Auto) 0.0 % Basophils (%) (Auto) 0.2 % Neutrophils # (Auto) 5.24 K/uL Lymphocytes # (Auto) 0.64 K/uL Monocytes # (Auto) 0.61 K/uL Eosinophils # (Auto) 0.00 K/uL Basophils # (Auto) 0.01 K/uL RDW Standard Deviation 66.8 fL RDW Coefficient of Variation 18.6 % Immature Granulocyte % (Auto) 0.6 % Immature Granulocyte # (Auto) 0.04 K/uL Red Blood Cell Morphology Unremarkable Prothrombin Time 31.5 SECONDS Prothromb Time International Ratio 3.1 Activated Partial Thromboplast Time 131.2 SECONDS Partial Thromboplastin Ratio 5.0 Venous Blood pH 7.33 Venous Blood Partial Pressure CO2 45 mmHg Venous Blood Partial Pressure O2 42 mmHg Venous Blood HCO3 23 mmol/L Venous Blood Oxygen Saturation 72.0 % Venous Blood Base Excess -3.2 mEq/L Sodium Level 138 mmol/L Potassium Level 4.6 mmol/L Chloride Level 105 mmol/L Carbon Dioxide Level 23 mmol/L Anion Gap 10.0 mmol/L Blood Urea Nitrogen 27 mg/dl Creatinine 3.12 mg/dl Estimated GFR () 16.9 Estimated GFR (Non- 14.6 BUN/Creatinine Ratio 8.5 Random Glucose 120 mg/dl Calcium Level 8.1 mg/dl Total Bilirubin 0.4 mg/dl Aspartate Amino Transf (AST/SGOT) 19 U/L Alanine Aminotransferase (ALT/SGPT) < 6 U/L Alkaline Phosphatase 143 U/L Troponin I 0.022 ng/ml Total Protein 5.3 gm/dl Albumin 1.4 gm/dl Globulin 3.9 gm/dl Albumin/Globulin Ratio 0.4 Procalcitonin 1.34 ng/ml Bedside Lactic Acid Venous 2.35 mmol/L Bedside Glucose 118 mg/dl Test 01/27/18 01:51 01/27/18 04:49 01/27/18 05:02 01/27/18 06:45 Arterial Blood pH 7.26 Arterial Blood Partial Pressure CO2 44 mmHg Arterial Blood Partial Pressure O2 240 mm/Hg Arterial Blood HCO3 19 mmol/L Arterial Blood Oxygen Saturation 99.2 % Arterial Blood Base Excess -7.5 mEq/L Arterial Blood Gas Delivery 100% Marcio Test POS Pass Lactic Acid Level 4.0 mmol/L 2.7 mmol/L White Blood Count 3.77 K/uL Red Blood Count 3.17 M/uL Hemoglobin 9.7 g/dL Hematocrit 31.0 % Mean Corpuscular Volume 97.8 fL Mean Corpuscular Hemoglobin 30.6 pg Mean Corpuscular Hemoglobin Concent 31.3 g/dl Platelet Count 265 K/uL Mean Platelet Volume 8.6 fL Neutrophils (%) (Auto) 88.6 % Lymphocytes (%) (Auto) 7.4 % Monocytes (%) (Auto) 2.9 % Eosinophils (%) (Auto) 0.0 % Basophils (%) (Auto) 0.3 % Neutrophils # (Auto) 3.34 K/uL Lymphocytes # (Auto) 0.28 K/uL Monocytes # (Auto) 0.11 K/uL Eosinophils # (Auto) 0.00 K/uL Basophils # (Auto) 0.01 K/uL RDW Standard Deviation 66.8 fL RDW Coefficient of Variation 18.6 % Immature Granulocyte % (Auto) 0.8 % Immature Granulocyte # (Auto) 0.03 K/uL Toxic Vacuolation 1+ Prothrombin Time 26.9 SECONDS Prothromb Time International Ratio 2.6 Activated Partial Thromboplast Time 39.4 SECONDS Partial Thromboplastin Ratio 1.5 Sodium Level 137 mmol/L Potassium Level 4.3 mmol/L Chloride Level 106 mmol/L Carbon Dioxide Level 21 mmol/L Anion Gap 10.0 mmol/L Blood Urea Nitrogen 28 mg/dl Creatinine 3.13 mg/dl Est Creatinine Clear Calc Drug Dose 13.6 ml/min Estimated GFR () 16.9 Estimated GFR (Non- 14.6 BUN/Creatinine Ratio 8.9 Random Glucose 166 mg/dl Calcium Level 8.0 mg/dl Phosphorus Level 4.9 mg/dl Magnesium Level 1.8 mg/dl Total Bilirubin 0.5 mg/dl Direct Bilirubin 0.1 mg/dl Aspartate Amino Transf (AST/SGOT) 25 U/L Alanine Aminotransferase (ALT/SGPT) < 6 U/L Alkaline Phosphatase 153 U/L Total Protein 5.0 gm/dl Albumin 1.3 gm/dl Blood Gas Sample Site Art Line Bedside Blood Gas pH (LAB) 7.30 Bedside Blood Gas pCO2 (LAB) 43 mmHg Bedside Blood Gas pO2 (LAB) 62 mmHg Bedside Blood Gas HCO3 (LAB) 21 meq/L Bedside Blood Gas Total CO2 22 mEq/l Bedside Blood Gas Base Excess (LAB) -5.0 meq/L Bedside Blood Gas O2 Saturation 88.0 % Oxygen Delivery Device Ventilator Bedside Oxygen Rate (breaths/min) 18 Blood Gas Minute Ventilation 12.8 Bedside FiO2 60 % Blood Gas Tidal Volume 400 Blood Gas PEEP 5 Bedside Glucose (other) 166 mg/dl EKG: NSR without acute ST/T wave changes. Telemetry reviewed: NSR, Sinus bradycardia (Altagracia Patel PA-C) Assessment & Plan 1. Respiratory/cardiac arrest secondary to aspiration event with associated hypoxia 2. Acute SBO following recent abdominal surgery with multiple abscesses 3. Aspiration pneumonia. 4. History of ESRD on HD 5. History of Von Willebrand 6. Echo in Nov 2017 - Normal LV function, EF 55%, no significant valvular disease PLAN: Unlikely this was an acute cardiac event. Await echo results to evaluate LV function. Trend cardiac enzymes continue to monitor on telemetry Continue pressors for BP support Case to be discussed with Dr. Cantu, will follow. (Altagracia Patel PA-C) CARDIOLOGY ATTENDING ADDENDUM: The patient was seen and personally examined. Agree with Altagracia Patel PA-C's findings and plans as documented above. We will provide support where we can however, I do not believe that this is an acute cardiac event. I will review the echocardiogram. (Timoteo Cantu, DO)
[2018-01-27] MEDS ORDERED: MAGNESIUM SULFATE 1GM / D5W 1 GM in PREMIXED IN D5W 100 ML IV ONE (09:45)
[2018-01-27] MEDS ORDERED: MIDAZOLAM HCL 1 MG/ML 2ML VIAL IV PRN (09:45)
--- NOTE | 2018-01-27 09:55 | Nephrology Consultation ---
Nephrology Consultation Date & Providers Date of Consultation: Jan 27, 2018. Primary Care Provider: Sixto Bella M.D. Referring Provider: Reason for Consultation ESRD on HD History of Present Illness Mrs. Turner is a 67 year old white female who is seen at the request of Efra Fox PA-c to provide inpatient HD and assist w/ medical management. Medical records in the hospital EMR were reviewed and are summarized as follows: Mrs. Turner has ESRD due to hypertensive nephrosclerosis and microvascular disease. She has been on IHD since 10/04 at the [facility] dialysis unit (MWF 3.5 hrs F-180NR 3K 2.5Ca EDW 48 kg). Her medical history is significant for AODM, HTN and possibly von Willebrand's disease. In 09/06 Mrs. Turner was hospitalized with an appendiceal perforation. This was contained and managed conservatively with antibiotic therapy. She did not require surgery. Following discharge from the hospital Mrs. Turner remained weak and complained of persistent nausea. In 01/05 she suffered a mechanical fall resulting in a comminuted minimally displaced fracture of the L humerus neck. Her fracture was managed by immobilization w/ a sling. Her hospital course was complicated by thrombosis of her AVF requiring R IJ THC insertion and SBO. Mrs. Turner was transferred to [place] when she underwent AVF thrombectomy and exploratory laparotomy. She was found to have diffuse peritoneal inflammation, bowel adhesions and several abscesses. No focal perforation was found. Mrs. Turner underwent lysis of adhesions and peritoneal lavage. Following recovery from surgery she was transferred to [facility] for inpatient physical therapy. Mrs. Turner was dialyzed according to her chronic outpatient orders. Her last treatment was 01/25. Her AVF was functioning well. Medical records indicate that Mrs. Turner was transferred to the ED at midnight last evening due to dyspnea. It was found that she was actively aspirating. During her ED evaluation she suffered cardiopulmonary arrest requiring CPR and orotracheal intubation. She was successfully resuscitated and transferred to the ICU for ventilatory and pressor support. Past Medical/Surgical History Medical: # ESRD on HD # Chronic liver disease # HTN # PVD # DM # von Willebrand's disease # Perforated perforated appendicitis and small abscess 09/06 Surgical: # IJ THC # AVF Allergies Coded Allergies: Adhesives (Verified Allergy, Intermediate, RASH, 01/27/18) Amoxicillin (Verified Allergy, Intermediate, RASH, 01/27/18) Ampicillin (Verified Allergy, Intermediate, RASH, 01/27/18) Erythromycin (Verified Allergy, Intermediate, RASH, 01/27/18) Etodolac (Verified Allergy, Intermediate, RASH, 01/27/18) Penicillins (Verified Allergy, Intermediate, RASH, 01/27/18) Sulfa Antibiotics (Verified Allergy, Intermediate, RASH, 01/27/18) Aspirin (Verified Allergy, Mild, RASH, 01/27/18) Sevelamer (Verified Allergy, Mild, rash, 01/27/18) Inpatient Medications Current Inpatient Medications Medications (Trade) Dose Ordered Sig/Eduardo Route Start Time Stop Time Status Last Admin Dose Admin Miscellaneous Information (Consult) 1 ea UD PRN N/A 01/27/18 02:15 02/26/18 02:14 Norepinephrine Bitartrate 8 mg/ Dextrose 508 ml @ 0 mls/hr Q0M PRN IV 01/27/18 02:29 02/26/18 02:28 Pantoprazole Sodium 40 mg/ Syringe 10 ml @ 5 mls/min DAILY IV 01/27/18 09:00 02/26/18 08:59 01/27/18 08:55 5 MLS/MIN Imipenem/ Cilastatin Sodium (Consult) 1 ea UD PRN N/A 01/27/18 04:15 02/26/18 04:14 Levofloxacin (Consult) 1 ea UD PRN N/A 01/27/18 04:15 02/26/18 04:14 Insulin Aspart (novoLOG ASPART) SLIDING SCALE If C... Q4 SC 01/27/18 08:00 02/26/18 07:59 Glucose (Glucose 40% Gel) 15-30 GRAMS 15 GRAMS... UD PRN PO 01/27/18 05:15 02/26/18 05:14 Glucose (Glucose Chew Tab) 4-8 Tablets 4 Tabl... UD PRN PO 01/27/18 05:15 02/26/18 05:14 Dextrose (Dextrose 50% 50ML Syringe) 25-50ML OF 50% DW IV FOR... UD PRN IV 01/27/18 05:15 02/26/18 05:14 Glucagon (Glucagon Inj) 1 mg UD PRN SQ 01/27/18 05:15 5/9/18 05:14 Miscellaneous Information (Consult Glycemic Management Pharmacy) 1 ea DAILY PRN N/A 01/27/18 06:01 02/26/18 06:00 Ipratropium [place] (Atrovent Hfa Inhaler) 4 puffs Q4R INH 01/27/18 08:00 02/26/18 07:59 01/27/18 07:15 4 PUFFS Levalbuterol (Xopenex Hfa Inhaler) 4 puffs Q4R INH 01/27/18 08:00 02/26/18 07:59 01/27/18 07:15 4 PUFFS Magnesium Sulfate 1 gm/Prmx 100 ml @ 100 mls/hr NOW ONCE IV 01/27/18 09:45 01/27/18 10:44 Fentanyl Citrate (Fentanyl Inj) 50 mcg Q2H PRN IV 01/27/18 09:45 02/10/18 09:44 Midazolam HCl (Versed Inj) 2 mg Q2H PRN IV 01/27/18 09:45 02/26/18 09:44 Family History No pertinent family history Negative for CKD/ESRD Social History Smoking Status: Never Smoker Smokeless Tobacco Use: No Drug Use: none Marital Status: Housing Status: lives with significant other 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 . Retired. Never a smoker Review of Systems Mechanically ventilated Physical Exam Date Time Temp Pulse Resp B/P (MAP) Pulse Ox O2 Delivery O2 Flow Rate FiO2 01/27/18 08:00 Mechanical Ventilator 65 01/27/18 07:38 65 01/27/18 06:01 88 31 89/35 (53) 99 Mechanical Ventilator 65 01/27/18 05:46 85 33 94/35 (54) 98 Mechanical Ventilator 65 01/27/18 05:31 88 34 103/39 (60) 98 Mechanical Ventilator 65 01/27/18 05:16 90 28 111/36 (61) 100 Mechanical Ventilator 65 01/27/18 05:15 65 01/27/18 05:01 89 33 104/36 (58) 100 Mechanical Ventilator 65 01/27/18 04:59 89 36 105/36 (59) 98 Mechanical Ventilator 60 01/27/18 04:46 91 35 99/39 (59) 99 Mechanical Ventilator 60 01/27/18 04:31 88 33 88/53 (65) 98 Mechanical Ventilator 60 4/9/18 04:25 89 35 89/52 (64) 100 Mechanical Ventilator 60 18 04:16 88 34 84/49 (61) 98 Mechanical Ventilator 60 18 04:08 90 35 78/51 (60) 96 Mechanical Ventilator 60 18 04:01 94 31 85/52 (63) 100 Mechanical Ventilator 60 01/27/18 04:00 97 32 93/54 (67) 94 Mechanical Ventilator 60 18 03:46 92 34 90/54 (66) 98 Mechanical Ventilator 60 18 03:31 98 33 104/68 (80) 100 Mechanical Ventilator 100 01/27/18 03:23 60 01/27/18 03:16 93 36 96/67 (77) 100 Mechanical Ventilator 100 01/27/18 03:10 Mechanical Ventilator 60 01/27/18 03:09 01/27/18 03:09 36.4 91 29 99/60 (73) 100 Mechanical Ventilator 100 01/27/18 02:41 94/62 01/27/18 02:39 88 29 100 Mechanical Ventilator 01/27/18 02:36 103/63 01/27/18 02:34 88 30 100 01/27/18 02:32 100 01/27/18 02:31 92/65 01/27/18 02:29 89 28 100 01/27/18 02:24 90 24 100 Mechanical Ventilator 01/27/18 02:22 91 21 100 01/27/18 02:21 100/58 01/27/18 02:20 91 29 100 01/27/18 02:18 91 27 01/27/18 02:16 89 18 97/53 100 Mechanical Ventilator 01/27/18 02:16 90 31 97/53 01/27/18 02:14 92 33 01/27/18 02:12 91 29 01/27/18 02:12 91 29 01/27/18 02:11 90/54 01/27/18 02:11 90/54 01/27/18 02:10 92 27 01/27/18 02:09 82/53 01/27/18 02:06 71/49 01/27/18 02:01 94 01/27/18 02:01 65/47 01/27/18 02:00 Mechanical Ventilator 100 01/27/18 01:57 94 26 01/27/18 01:56 75/50 01/27/18 01:55 95 Nasal Cannula 3.0 01/27/18 01:52 36.2 81 22 115/52 96 Nasal Cannula 3.0 01/27/18 01:51 86/58 01/27/18 01:48 98 01/27/18 01:47 97/52 01/27/18 01:42 110 22 01/27/18 01:41 133/73 01/27/18 01:36 148/68 01/27/18 01:31 144/73 01/27/18 01:28 173/77 01/27/18 01:27 114 23 94 01/27/18 01:25 200/94 01/27/18 01:24 207/99 01/27/18 01:23 120 01/27/18 01:21 102 01/27/18 01:21 97 01/27/18 01:20 119 01/27/18 01:13 44 01/27/18 01:12 44 01/27/18 01:02 96 Nasal Cannula 3.0 01/27/18 00:06 76 General Appearance: + thin (frail appearing. Currently on mechanical ventilation) Head: atraumatic (temporal muscle wasting) Eyes: PERRL Neck: supple Respiratory/Chest: + pertinent finding (coarse breath sounds anteriorly) Cardiovascular: regular rate, rhythm Abdomen/GI: + pertinent finding (no bowel sounds. Surgical incision is well opposed and healing) Extremities/Musculoskelatal: no pedal edema, + pertinent finding (L upper arm AVF + bruit) Neurologic/Psych: alert Laboratory Results Last 24 Hours Test 01/27/18 00:41 01/27/18 00:42 01/27/18 00:44 01/27/18 01:13 White Blood Count 6.54 K/uL Red Blood Count 3.01 M/uL Hemoglobin 9.4 g/dL Hematocrit 29.7 % Mean Corpuscular Volume 98.7 fL Mean Corpuscular Hemoglobin 31.2 pg Mean Corpuscular Hemoglobin Concent 31.6 g/dl Platelet Count 265 K/uL Mean Platelet Volume 8.8 fL Neutrophils (%) (Auto) 80.1 % Lymphocytes (%) (Auto) 9.8 % Monocytes (%) (Auto) 9.3 % Eosinophils (%) (Auto) 0.0 % Basophils (%) (Auto) 0.2 % Neutrophils # (Auto) 5.24 K/uL Lymphocytes # (Auto) 0.64 K/uL Monocytes # (Auto) 0.61 K/uL Eosinophils # (Auto) 0.00 K/uL Basophils # (Auto) 0.01 K/uL RDW Standard Deviation 66.8 fL RDW Coefficient of Variation 18.6 % Immature Granulocyte % (Auto) 0.6 % Immature Granulocyte # (Auto) 0.04 K/uL Red Blood Cell Morphology Unremarkable Prothrombin Time 31.5 SECONDS Prothromb Time International Ratio 3.1 Activated Partial Thromboplast Time 131.2 SECONDS Partial Thromboplastin Ratio 5.0 Venous Blood pH 7.33 Venous Blood Partial Pressure CO2 45 mmHg Venous Blood Partial Pressure O2 42 mmHg Venous Blood HCO3 23 mmol/L Venous Blood Oxygen Saturation 72.0 % Venous Blood Base Excess -3.2 mEq/L Sodium Level 138 mmol/L Potassium Level 4.6 mmol/L Chloride Level 105 mmol/L Carbon Dioxide Level 23 mmol/L Anion Gap 10.0 mmol/L Blood Urea Nitrogen 27 mg/dl Creatinine 3.12 mg/dl Estimated GFR () 16.9 Estimated GFR (Non- 14.6 BUN/Creatinine Ratio 8.5 Random Glucose 120 mg/dl Calcium Level 8.1 mg/dl Total Bilirubin 0.4 mg/dl Aspartate Amino Transf (AST/SGOT) 19 U/L Alanine Aminotransferase (ALT/SGPT) < 6 U/L Alkaline Phosphatase 143 U/L Troponin I 0.022 ng/ml Total Protein 5.3 gm/dl Albumin 1.4 gm/dl Globulin 3.9 gm/dl Albumin/Globulin Ratio 0.4 Procalcitonin 1.34 ng/ml Bedside Lactic Acid Venous 2.35 mmol/L Bedside Glucose 118 mg/dl Test 01/27/18 01:51 01/27/18 04:49 01/27/18 05:02 01/27/18 06:45 Arterial Blood pH 7.26 Arterial Blood Partial Pressure CO2 44 mmHg Arterial Blood Partial Pressure O2 240 mm/Hg Arterial Blood HCO3 19 mmol/L Arterial Blood Oxygen Saturation 99.2 % Arterial Blood Base Excess -7.5 mEq/L Arterial Blood Gas Delivery 100% Marcio Test POS Pass Lactic Acid Level 4.0 mmol/L 2.7 mmol/L White Blood Count 3.77 K/uL Red Blood Count 3.17 M/uL Hemoglobin 9.7 g/dL Hematocrit 31.0 % Mean Corpuscular Volume 97.8 fL Mean Corpuscular Hemoglobin 30.6 pg Mean Corpuscular Hemoglobin Concent 31.3 g/dl Platelet Count 265 K/uL Mean Platelet Volume 8.6 fL Neutrophils (%) (Auto) 88.6 % Lymphocytes (%) (Auto) 7.4 % Monocytes (%) (Auto) 2.9 % Eosinophils (%) (Auto) 0.0 % Basophils (%) (Auto) 0.3 % Neutrophils # (Auto) 3.34 K/uL Lymphocytes # (Auto) 0.28 K/uL Monocytes # (Auto) 0.11 K/uL Eosinophils # (Auto) 0.00 K/uL Basophils # (Auto) 0.01 K/uL RDW Standard Deviation 66.8 fL RDW Coefficient of Variation 18.6 % Immature Granulocyte % (Auto) 0.8 % Immature Granulocyte # (Auto) 0.03 K/uL Toxic Vacuolation 1+ Prothrombin Time 26.9 SECONDS Prothromb Time International Ratio 2.6 Activated Partial Thromboplast Time 39.4 SECONDS Partial Thromboplastin Ratio 1.5 Sodium Level 137 mmol/L Potassium Level 4.3 mmol/L Chloride Level 106 mmol/L Carbon Dioxide Level 21 mmol/L Anion Gap 10.0 mmol/L Blood Urea Nitrogen 28 mg/dl Creatinine 3.13 mg/dl Est Creatinine Clear Calc Drug Dose 13.6 ml/min Estimated GFR () 16.9 Estimated GFR (Non- 14.6 BUN/Creatinine Ratio 8.9 Random Glucose 166 mg/dl Calcium Level 8.0 mg/dl Phosphorus Level 4.9 mg/dl Magnesium Level 1.8 mg/dl Total Bilirubin 0.5 mg/dl Direct Bilirubin 0.1 mg/dl Aspartate Amino Transf (AST/SGOT) 25 U/L Alanine Aminotransferase (ALT/SGPT) < 6 U/L Alkaline Phosphatase 153 U/L Total Protein 5.0 gm/dl Albumin 1.3 gm/dl Blood Gas Sample Site Art Line Bedside Blood Gas pH (LAB) 7.30 Bedside Blood Gas pCO2 (LAB) 43 mmHg Bedside Blood Gas pO2 (LAB) 62 mmHg Bedside Blood Gas HCO3 (LAB) 21 meq/L Bedside Blood Gas Total CO2 22 mEq/l Bedside Blood Gas Base Excess (LAB) -5.0 meq/L Bedside Blood Gas O2 Saturation 88.0 % Oxygen Delivery Device Ventilator Bedside Oxygen Rate (breaths/min) 18 Blood Gas Minute Ventilation 12.8 Bedside FiO2 60 % Blood Gas Tidal Volume 400 Blood Gas PEEP 5 Bedside Glucose (other) 166 mg/dl Impression (1) End-stage renal disease on hemodialysis (2) Aspiration pneumonia (3) Cardiac arrest (4) Septic shock (5) Ileus following gastrointestinal surgery (6) Diabetes (7) Von Willebrand disease (8) Shoulder fracture, left Recommendations ESRD: -- Patient is clinically euvolemic to volume contracted at this time. She is oxygenating well on 65% FiO2. Electrolyte balance is acceptable. BP is tenuous and patient requires pressor support. Hold HD today and will reassess in am. -- Protect L arm AVF -- OK to access R IJ THC catheter as patient has functioning AVF and requires vascular access for pressor support ANEMIA: -- Hgb 9.7. Will monitor and provide KISHA w/ HD HTN: -- Continue pressor support to maintain MAP 65 or greater ID: -- Continue Imipenem and Levaquin. Recommend pharmacy consultation to assist w / dosing -- Await bronchoscopy results GI: -- Ileus v. obstruction. Recommend surgical consultation due to recent h/o laparotomy One hour critical care time provided to the patient today. This was necessary to review her medical record, perform physical exam and discuss medical management w/ ICU team.
--- NOTE | 2018-01-27 10:50 | Procedure Note ---
Procedure Note Date of Service Jan 27, 2018. Procedure Note Procedure date: January 27, 2018 Procedure: fiberoptic bronchoscopy Pre-procedure Diagnosis: Acute hypoxic respiratory failure, probable aspiration Post-procedure Diagnosis: same as above Prior to Procedure: Informed Consent: The risks, benefits, indications, potential complications, and alternatives were explained to the patient/family and informed consent obtained. Attending Staff: Bonita Molina DO Resident/APC: Jerrica Rivers Skin Prep: Not applicable Anesthesia: Propofol 30 mg, 50 mcg fentanyl Indications: Patient is a 67-year-old female with acute hypoxic respiratory failure likely secondary to aspiration. Patient has a history of possible aspiration in dysphasia following a exploratory laparotomy. The identity of the patient was confirmed and a bedside time out was performed. Description of Procedure: Fiberoptic bronchoscopy was performed via endotracheal tube. Bronchioalveolar lavage left lower lobe was performed. Findings included: White creamy secretions in both bilateral lower lobes, there is note of significant purulence in the left lower lobe consistent with probable aspiration and appearance of food particles. Image prior to lavage as well as post lavage image was obtained. Complications: None Specimens: Bronchial washings sent for culture and Gram stain, cytology, fungal elements, and AFB stain and culture. Estimated blood loss: Zero
[2018-01-27] MEDS: NOREPINEPHRINE BIT INJ 8 MG in DEXTROSE 5% 500ML 500 ML IV PRN ×3 (10:57→20:58)
--- NOTE | 2018-01-27 11:15 | Pharmacy Progress Note ---
Pharmacy Antibiotic Consult Date of Service: Jan 27, 2018. Pharmacy Dosing Scope Pharmacy is consulted to initiate vancomycin IV dosing therapy, order appropriate labs and adjust drug dose/frequency. Subjective The patient is a 67 year old female admitted on Jan 27, 2018 at 02:38. Objective Height (Feet): 5 Height (Inches): 2.00 Weight (Kilograms): 52.900 Lab Results (24hrs): Test 01/27/18 00:41 01/27/18 00:42 01/27/18 00:44 01/27/18 01:13 White Blood Count 6.54 K/uL (4.8-10.8) Red Blood Count 3.01 M/uL (4.2-5.4) Hemoglobin 9.4 g/dL (12.0-16.0) Hematocrit 29.7 % (37-47) Mean Corpuscular Volume 98.7 fL (80-100) Mean Corpuscular Hemoglobin 31.2 pg (25-34) Mean Corpuscular Hemoglobin Concent 31.6 g/dl (32-36) Platelet Count 265 K/uL (130-400) Mean Platelet Volume 8.8 fL (7.4-10.4) Neutrophils (%) (Auto) 80.1 % Lymphocytes (%) (Auto) 9.8 % Monocytes (%) (Auto) 9.3 % Eosinophils (%) (Auto) 0.0 % Basophils (%) (Auto) 0.2 % Neutrophils # (Auto) 5.24 K/uL (1.4-6.5) Lymphocytes # (Auto) 0.64 K/uL (1.2-3.4) Monocytes # (Auto) 0.61 K/uL (0.11-0.59) Eosinophils # (Auto) 0.00 K/uL (0-0.5) Basophils # (Auto) 0.01 K/uL (0-0.2) RDW Standard Deviation 66.8 fL (36.4-46.3) RDW Coefficient of Variation 18.6 % (11.5-14.5) Immature Granulocyte % (Auto) 0.6 % Immature Granulocyte # (Auto) 0.04 K/uL (0.00-0.02) Red Blood Cell Morphology Unremarkable Prothrombin Time 31.5 SECONDS (9.0-12.0) Prothromb Time International Ratio 3.1 (0.9-1.1) Activated Partial Thromboplast Time 131.2 SECONDS (21.0-31.0) Partial Thromboplastin Ratio 5.0 Venous Blood pH 7.33 (7.36-7.41) Venous Blood Partial Pressure CO2 45 mmHg (38.0-50.0) Venous Blood Partial Pressure O2 42 mmHg Venous Blood HCO3 23 mmol/L Venous Blood Oxygen Saturation 72.0 % Venous Blood Base Excess -3.2 mEq/L Sodium Level 138 mmol/L (136-145) Potassium Level 4.6 mmol/L (3.5-5.1) Chloride Level 105 mmol/L (98-107) Carbon Dioxide Level 23 mmol/L (21-32) Anion Gap 10.0 mmol/L (3-11) Blood Urea Nitrogen 27 mg/dl (7-18) Creatinine 3.12 mg/dl (0.60-1.20) Estimated GFR () 16.9 Estimated GFR (Non- 14.6 BUN/Creatinine Ratio 8.5 (10-20) Random Glucose 120 mg/dl (70-99) Calcium Level 8.1 mg/dl (8.5-10.1) Total Bilirubin 0.4 mg/dl (0.2-1) Aspartate Amino Transf (AST/SGOT) 19 U/L (15-37) Alanine Aminotransferase (ALT/SGPT) < 6 U/L (12-78) Alkaline Phosphatase 143 U/L (45-117) Troponin I 0.022 ng/ml (0-0.045) Total Protein 5.3 gm/dl (6.4-8.2) Albumin 1.4 gm/dl (3.4-5.0) Globulin 3.9 gm/dl (2.5-4.0) Albumin/Globulin Ratio 0.4 (0.9-2) Procalcitonin 1.34 ng/ml (0-0.5) Bedside Lactic Acid Venous 2.35 mmol/L (0.90-1.70) Bedside Glucose 118 mg/dl (70-90) Test 01/27/18 01:51 01/27/18 04:49 01/27/18 05:02 01/27/18 06:45 Arterial Blood pH 7.26 (7.35-7.45) Arterial Blood Partial Pressure CO2 44 mmHg (35-46) Arterial Blood Partial Pressure O2 240 mm/Hg (80-95) Arterial Blood HCO3 19 mmol/L (19-24) Arterial Blood Oxygen Saturation 99.2 % (90-95) Arterial Blood Base Excess -7.5 mEq/L (-9-1.8) Arterial Blood Gas Delivery 100% Marcio Test POS (POS) Pass Lactic Acid Level 4.0 mmol/L (0.4-2.0) 2.7 mmol/L (0.4-2.0) White Blood Count 3.77 K/uL (4.8-10.8) Red Blood Count 3.17 M/uL (4.2-5.4) Hemoglobin 9.7 g/dL (12.0-16.0) Hematocrit 31.0 % (37-47) Mean Corpuscular Volume 97.8 fL (80-100) Mean Corpuscular Hemoglobin 30.6 pg (25-34) Mean Corpuscular Hemoglobin Concent 31.3 g/dl (32-36) Platelet Count 265 K/uL (130-400) Mean Platelet Volume 8.6 fL (7.4-10.4) Neutrophils (%) (Auto) 88.6 % Lymphocytes (%) (Auto) 7.4 % Monocytes (%) (Auto) 2.9 % Eosinophils (%) (Auto) 0.0 % Basophils (%) (Auto) 0.3 % Neutrophils # (Auto) 3.34 K/uL (1.4-6.5) Lymphocytes # (Auto) 0.28 K/uL (1.2-3.4) Monocytes # (Auto) 0.11 K/uL (0.11-0.59) Eosinophils # (Auto) 0.00 K/uL (0-0.5) Basophils # (Auto) 0.01 K/uL (0-0.2) RDW Standard Deviation 66.8 fL (36.4-46.3) RDW Coefficient of Variation 18.6 % (11.5-14.5) Immature Granulocyte % (Auto) 0.8 % Immature Granulocyte # (Auto) 0.03 K/uL (0.00-0.02) Toxic Vacuolation 1+ Prothrombin Time 26.9 SECONDS (9.0-12.0) Prothromb Time International Ratio 2.6 (0.9-1.1) Activated Partial Thromboplast Time 39.4 SECONDS (21.0-31.0) Partial Thromboplastin Ratio 1.5 Sodium Level 137 mmol/L (136-145) Potassium Level 4.3 mmol/L (3.5-5.1) Chloride Level 106 mmol/L (98-107) Carbon Dioxide Level 21 mmol/L (21-32) Anion Gap 10.0 mmol/L (3-11) Blood Urea Nitrogen 28 mg/dl (7-18) Creatinine 3.13 mg/dl (0.60-1.20) Est Creatinine Clear Calc Drug Dose 13.6 ml/min Estimated GFR () 16.9 Estimated GFR (Non- 14.6 BUN/Creatinine Ratio 8.9 (10-20) Random Glucose 166 mg/dl (70-99) Calcium Level 8.0 mg/dl (8.5-10.1) Phosphorus Level 4.9 mg/dl (2.5-4.9) Magnesium Level 1.8 mg/dl (1.8-2.4) Total Bilirubin 0.5 mg/dl (0.2-1) Direct Bilirubin 0.1 mg/dl (0-0.2) Aspartate Amino Transf (AST/SGOT) 25 U/L (15-37) Alanine Aminotransferase (ALT/SGPT) < 6 U/L (12-78) Alkaline Phosphatase 153 U/L (45-117) Total Protein 5.0 gm/dl (6.4-8.2) Albumin 1.3 gm/dl (3.4-5.0) Blood Gas Sample Site Art Line Bedside Blood Gas pH (LAB) 7.30 (7.35-7.45) Bedside Blood Gas pCO2 (LAB) 43 mmHg (35-46) Bedside Blood Gas pO2 (LAB) 62 mmHg (80-95) Bedside Blood Gas HCO3 (LAB) 21 meq/L (19-24) Bedside Blood Gas Total CO2 22 mEq/l (24-31) Bedside Blood Gas Base Excess (LAB) -5.0 meq/L (-9-1.8) Bedside Blood Gas O2 Saturation 88.0 % (90-95) Oxygen Delivery Device Ventilator Bedside Oxygen Rate (breaths/min) 18 Blood Gas Minute Ventilation 12.8 Bedside FiO2 60 % Blood Gas Tidal Volume 400 Blood Gas PEEP 5 Bedside Glucose (other) 166 mg/dl (70-99) Assessment & Plan Assessment * 67 yo F critically ill in ICU with cardiac arrest 2nd aspiration event. She is mechanically ventilated and requiring pressure support. * On imipenem, levofloxacin, and vancomycin - OK for now 2nd severity of illness. Bronchial washings cultures pending. * On HD MWF as outpatient - no HD planned for today per nephrology note Vancomycin * Vancomycin 24 mg/kg IV administered this AM * Do not anticipate significant non-HD clearance as patient had no documented UOP on previous visit December 2017 * No additional vancomycin needed today as patient received adequate loading dose and no HD planned * Random level prior to anticipated HD tomorrow Plan * No additional vancomycin for now * Random vancomycin level w AM labs 01/28 Pharmacy will continue to follow and will adjust dose/frequency as necessary. Thank you
--- NOTE | 2018-01-27 11:34 | Pharmacy Progress Note ---
Glycemic Control Intl Consult Date of Service Jan 27, 2018. Scope Glycemic Pharmacist consulted by Efra Fox PA-C on 01/27 for glycemic control and to write orders per [facility] inpatient glycemic control protocol Objective Weight (Kilograms): 52.900 Accuchecks BSG (last 24hrs): Test 01/27/18 00:41 01/27/18 01:13 01/27/18 04:49 Random Glucose 120 mg/dl (70-99) 166 mg/dl (70-99) Bedside Glucose 118 mg/dl (70-90) Laboratory Data (last 24hrs) Test 01/27/18 00:41 01/27/18 04:49 Anion Gap 10.0 mmol/L 10.0 mmol/L BUN/Creatinine Ratio 8.5 8.9 Blood Urea Nitrogen 27 mg/dl 28 mg/dl Creatinine 3.12 mg/dl 3.13 mg/dl Potassium Level 4.6 mmol/L 4.3 mmol/L Sodium Level 138 mmol/L 137 mmol/L White Blood Count 6.54 K/uL 3.77 K/uL Red Blood Count 3.01 M/uL 3.17 M/uL Hemoglobin 9.4 g/dL 9.7 g/dL Hematocrit 29.7 % 31.0 % Mean Corpuscular Volume 98.7 fL 97.8 fL Mean Corpuscular Hemoglobin 31.2 pg 30.6 pg Mean Corpuscular Hemoglobin Concent 31.6 g/dl 31.3 g/dl Platelet Count 265 K/uL 265 K/uL Mean Platelet Volume 8.8 fL 8.6 fL Neutrophils (%) (Auto) 80.1 % 88.6 % Lymphocytes (%) (Auto) 9.8 % 7.4 % Monocytes (%) (Auto) 9.3 % 2.9 % Eosinophils (%) (Auto) 0.0 % 0.0 % Basophils (%) (Auto) 0.2 % 0.3 % Neutrophils # (Auto) 5.24 K/uL 3.34 K/uL Lymphocytes # (Auto) 0.64 K/uL 0.28 K/uL Monocytes # (Auto) 0.61 K/uL 0.11 K/uL Eosinophils # (Auto) 0.00 K/uL 0.00 K/uL Basophils # (Auto) 0.01 K/uL 0.01 K/uL Recent Pertinent Medications Outpatient Anti-diabetic Regimen: * Lantus 7 units SC daily * Novolog TIDM * A1c = 7.5 % on 01/03/18 (note: patient on chronic HD) Risk Factors for Insulin Resistance: * Infection: Pneumonia * Pressors: Norepinephrine * Recent Surgery: POD 0 s/p bronch * Diet: NPO * Mechanical Ventilation: YES Assessment & Plan ASSESSMENT: * 67 yo F with Type 1 diabetes known to our service. * Patient is critically ill in ICU with cardiac arrest 2nd aspiration event. She is mechanically ventilated and requiring pressure support. * On previous admission with fewer stressors, BSG's were well controlled while patient was NPO on a reduced Lantus dose of 3 units qAM. * BSG 90 mg/dL this AM - will continue this reduced dose despite significant stressors as BSG's are not significantly elevated at this time * Daily administration of Lantus preferred over divided BID administration in type 1 diabetes * Novolog at weight-based moderate stress per calculator. Will order q4h 2nd significant stressors * Patient with type 1 diabetes rarely require weight-based severe stress amounts of Novolog but since patient is critically ill, she may at some point need more aggressive Novolog dosing. Will wait to do so until BSG's not well controlled on initial regimen PLAN FOR INPATIENT GLYCEMIC CONTROL: * Basal insulin with LANTUS qAM based on BSG * 3 units for BSG less than 160 mg/dL * 4 units for BSG 160 mg/dL or greater * Correctional Insulin with NOVOLOG per scale ACHS or Q6hrs while NPO * Goal Range: Low 120 mg/dL - High 160 mg/dL * Correction Factor: 45 mg/dL/unit * Nutritional / Prandial insulin per carb ratio of 1 unit per 15 grams CHO consumed * Please note that the plan above was derived based on current level of insulin resistance and hospital stress. These recommendations are appropriate for inpatient admission only. Plan of care upon discharge will need to be reassessed to avoid potential outpatient hypo/hyperglycemia. Thank you.
--- NOTE | 2018-01-27 12:48 | Surgery Consultation ---
Consultation Date of Consultation: Jan 27, 2018. Attending Physician: Bo Agrawal MD History of Present Illness The patient is a 67 year old female who presents to the Emergency Room with complaints of persistent shortness of breath and cough since this afternoon. Per daughter, the patient had vomited after her lunch. She notes the patient has been aspirating her medications and food today. The patient has been spitting up yellow fluid. Per daughter, the patient was seen in the ED December for a broken left shoulder from a fall and lower abdominal pain. She was diagnosed with a possible small bowel obstruction and intra-abdominal abscesses. The patient has an AVF in her upper left arm, though it was broken and replaced at [facility]. The patient had a right subclavian dialysis catheter in place on January 06, 2018, prior to her transfer to [facility]. Per daughter, Dr. Decker, fire engine operator left the chest catheter in to make sure her fistula was operating as normal. The patient last had dialysis January 25, 2018 and they used her port instead of her fistula. Per daughter, the patient was diagnosed with appendicitis in August 2017, which ruptured. The patient was treated with antibiotics at that time. The patient recently had abdominal surgery to have abscesses removed January 17, 2018. She notes they did not remove her appendix. Per daughter, the patient had abdominal drains in place, though they were removed prior to her being placed at [facility]. She was placed at [facility] January 21, 2018. Per daughter, the patient's blood sugar has been running high, though the patient's blood sugar is currently normal. Per daughter , the patient has not had a normal bowel movement since the surgery. She notes the bowel movements are small in nature. The patient has a bed sore. The patient has a cough. The patient has a history of aspiration. She has a history of SBO, Sjogrens disease, Type 1 Diabetes Mellitus, pulmonary HTN, intra- abdominal abscesses, and ESRD on dialysis. I reviewed pt chart, pt is intubated now, pt just had bronchoscopy done, pt is on IV vasopressin drip. Past Medical/Surgical History Medical Problems: (1) Abnormal computed tomography angiography (CTA) of abdomen and pelvis Status: Acute (2) Acidosis Status: Acute (3) Acute renal failure Status: Acute (4) Aspiration of food Status: Acute (5) Aspiration pneumonia Status: Acute (6) Bilateral pleural effusion Status: Acute (7) Cardiac arrest Status: Acute (8) Cardiac arrest Status: Acute (9) Congestive heart failure Status: Acute (10) ESRD on dialysis Status: Chronic (11) Hyperglycemia Status: Acute (12) Hypertension Status: Chronic (13) Pneumonia Status: Acute (14) Pneumonia Status: Acute (15) Respiratory failure Status: Acute (16) RLQ abdominal pain Status: Acute (17) SBO (small bowel obstruction) Status: Acute (18) Septic shock Status: Acute (19) Shortness of breath Status: Acute (20) Von Willebrand disease Status: Chronic Family History No pertinent family history Social History Smoking Status: Never Smoker Smokeless Tobacco Use: No Drug Use: none Marital Status: Housing Status: lives with family Occupation Status: retired Allergies Coded Allergies: Adhesives (Verified Allergy, Intermediate, RASH, 01/27/18) Amoxicillin (Verified Allergy, Intermediate, RASH, 01/27/18) Ampicillin (Verified Allergy, Intermediate, RASH, 01/27/18) Erythromycin (Verified Allergy, Intermediate, RASH, 01/27/18) Etodolac (Verified Allergy, Intermediate, RASH, 01/27/18) Penicillins (Verified Allergy, Intermediate, RASH, 01/27/18) Sulfa Antibiotics (Verified Allergy, Intermediate, RASH, 01/27/18) Aspirin (Verified Allergy, Mild, RASH, 01/27/18) Sevelamer (Verified Allergy, Mild, rash, 01/27/18) Home Medications Scheduled Calcium Carbonate (Tums), 1,000 MG PO DAILY Cefazolin In D5w (Cefazolin Sodium), 2 GM IV 3XWK Cholecalciferol (Vitamin D3), 1 TAB PO DAILY Ciprofloxacin HCl (Ciprofloxacin), 500 MG PO DAILY Docusate Sodium (Colace), 1 CAP PO BID Famotidine (Pepcid), 20 MG PO DAILY Furosemide (Lasix), 80 MG PO 4XWK Hydralazine Hcl (Apresoline), 10 MG PO Q8 Insulin Aspart (Novolog Flexpen), UNITS SQ TIDM Insulin Glargine (Lantus Solostar), 7 UNITS SC DAILY Lisinopril (Zestril), 40 MG PO DAILY Metoprolol Tartrate (Lopressor) (Lopressor), 50 MG PO Q12 Metronidazole (Flagyl), 500 MG PO DAILY Polyethylene Glycol 3350 (Miralax), 17 GM PO DAILY Senna/Docusate Sod (Senokot S), 1 TAB PO DAILY Scheduled PRN Acetaminophen (Tylenol), 1 TAB PO Q4 PRN for Mild Pain Ondansetron Hcl (Zofran), 4 MG PO Q6 PRN for Nausea Oxycodone/Acetaminophen 10MG/325MG (Percocet 10MG/325MG), 1 TAB PO Q4 PRN for pain scale 7-10 Oxycodone/Acetaminophen 5MG/325MG (Percocet 5MG/325MG), 1 TAB PO Q4 PRN for pain scale 4-6 Current Inpatient Medications Current Inpatient Medications Medications (Trade) Dose Ordered Sig/Eduardo Route Start Time Stop Time Status Last Admin Dose Admin Miscellaneous Information (Consult) 1 ea UD PRN N/A 01/27/18 02:15 02/26/18 02:14 Norepinephrine Bitartrate 8 mg/ Dextrose 508 ml @ 0 mls/hr Q0M PRN IV 01/27/18 02:29 02/26/18 02:28 01/27/18 10:57 91.4 MLS/HR Pantoprazole Sodium 40 mg/ Syringe 10 ml @ 5 mls/min DAILY IV 01/27/18 09:00 02/26/18 08:59 01/27/18 08:55 5 MLS/MIN Imipenem/ Cilastatin Sodium (Consult) 1 ea UD PRN N/A 01/27/18 04:15 02/26/18 04:14 Levofloxacin (Consult) 1 ea UD PRN N/A 01/27/18 04:15 02/26/18 04:14 Insulin Aspart (novoLOG ASPART) SLIDING SCALE If C... Q4 SC 01/27/18 08:00 02/26/18 07:59 Glucose (Glucose 40% Gel) 15-30 GRAMS 15 GRAMS... UD PRN PO 01/27/18 05:15 02/26/18 05:14 Glucose (Glucose Chew Tab) 4-8 Tablets 4 Tabl... UD PRN PO 01/27/18 05:15 02/26/18 05:14 Dextrose (Dextrose 50% 50ML Syringe) 25-50ML OF 50% DW IV FOR... UD PRN IV 01/27/18 05:15 02/26/18 05:14 Glucagon (Glucagon Inj) 1 mg UD PRN SQ 01/27/18 05:15 02/26/18 05:14 Miscellaneous Information (Consult Glycemic Management Pharmacy) 1 ea DAILY PRN N/A 01/27/18 06:01 02/26/18 06:00 Ipratropium [place] (Atrovent Hfa Inhaler) 4 puffs Q4R INH 01/27/18 08:00 02/26/18 07:59 01/27/18 11:14 4 PUFFS Levalbuterol (Xopenex Hfa Inhaler) 4 puffs Q4R INH 01/27/18 08:00 02/26/18 07:59 01/27/18 11:14 4 PUFFS Fentanyl Citrate (Fentanyl Inj) 50 mcg Q2H PRN IV 01/27/18 09:45 02/10/18 09:44 01/27/18 10:44 50 MCG Midazolam HCl (Versed Inj) 2 mg Q2H PRN IV 01/27/18 09:45 02/26/18 09:44 Imipenem/ Cilastatin Sodium 500 mg/Dextrose 110 ml @ 110 mls/hr Q12@0400,1600 IV 01/27/18 16:00 02/03/18 15:59 Levofloxacin 500 mg/Prmx 100 ml @ 100 mls/hr Q2D@2100 IV 01/28/18 21:00 02/04/18 20:59 Insulin Glargine (Lantus Solostar Pen) QAM SC 01/28/18 09:00 02/27/18 08:59 Vasopressin 50 units/Sodium Chloride 502.5 ml @ 0 mls/hr Q0M PRN IV 01/27/18 12:30 02/26/18 12:29 Review of Systems Constitutional: No fever, No chills, No sweats, No weight loss, No weakness, No fatigue, No problem reported Eyes: No worsening of vision, No eye pain, No redness, No discharge, No diplopia, No problem reported ENT: No hearing loss, No unusual epistaxis, No nasal symptoms, No sore throat, No tinnitus, No dental problems, No trouble swallowing, No problem reported Respiratory: + cough, + shortness of breath Cardiovascular: No chest pain, No orthopnea, No PND, No edema, No claudication , No palpitations, No problem reported Abdomen: + pain, + nausea, + vomiting Genitourinary - Female: + problem reported (ESRD on HD) Hematologic / Lymphatic: No abnormal bleeding/bruising, No clotting problems, No swollen lymph nodes, No night sweats, No problem reported Physical Exam Date Time Temp Pulse Resp B/P (MAP) Pulse Ox O2 Delivery O2 Flow Rate FiO2 01/27/18 11:14 65 01/27/18 10:25 Mechanical Ventilator 01/27/18 09:00 87 27 86/32 (50) 91 Mechanical Ventilator 65 01/27/18 08:00 Mechanical Ventilator 65 01/27/18 08:00 65 01/27/18 08:00 86 31 96/37 (56) 98 Mechanical Ventilator 65 01/27/18 07:38 65 01/27/18 07:00 36.7 83 31 100/39 (59) 100 Mechanical Ventilator 65 01/27/18 06:01 88 31 89/35 (53) 99 Mechanical Ventilator 65 01/27/18 05:46 85 33 94/35 (54) 98 Mechanical Ventilator 65 01/27/18 05:31 88 34 103/39 (60) 98 Mechanical Ventilator 65 01/27/18 05:16 90 28 111/36 (61) 100 Mechanical Ventilator 65 01/27/18 05:15 65 01/27/18 05:01 89 33 104/36 (58) 100 Mechanical Ventilator 65 01/27/18 04:59 89 36 105/36 (59) 98 Mechanical Ventilator 60 01/27/18 04:46 91 35 99/39 (59) 99 Mechanical Ventilator 60 01/27/18 04:31 88 33 88/53 (65) 98 Mechanical Ventilator 60 01/27/18 04:25 89 35 89/52 (64) 100 Mechanical Ventilator 60 01/27/18 04:16 88 34 84/49 (61) 98 Mechanical Ventilator 60 01/27/18 04:08 90 35 78/51 (60) 96 Mechanical Ventilator 60 01/27/18 04:01 94 31 85/52 (63) 100 Mechanical Ventilator 60 01/27/18 04:00 97 32 93/54 (67) 94 Mechanical Ventilator 60 01/27/18 03:46 92 34 90/54 (66) 98 Mechanical Ventilator 60 01/27/18 03:31 98 33 104/68 (80) 100 Mechanical Ventilator 100 01/27/18 03:23 60 01/27/18 03:16 93 36 96/67 (77) 100 Mechanical Ventilator 100 01/27/18 03:10 Mechanical Ventilator 60 01/27/18 03:09 01/27/18 03:09 36.4 91 29 99/60 (73) 100 Mechanical Ventilator 100 01/27/18 02:41 94/62 01/27/18 02:39 88 29 100 Mechanical Ventilator 01/27/18 02:36 103/63 01/27/18 02:34 88 30 100 01/27/18 02:32 100 01/27/18 02:31 92/65 01/27/18 02:29 89 28 100 01/27/18 02:24 90 24 100 Mechanical Ventilator 01/27/18 02:22 91 21 100 01/27/18 02:21 100/58 01/27/18 02:20 91 29 100 01/27/18 02:18 91 27 01/27/18 02:16 89 18 97/53 100 Mechanical Ventilator 01/27/18 02:16 90 31 97/53 01/27/18 02:14 92 33 01/27/18 02:12 91 29 01/27/18 02:12 91 29 01/27/18 02:11 90/54 01/27/18 02:11 90/54 01/27/18 02:10 92 27 01/27/18 02:09 82/53 01/27/18 02:06 71/49 01/27/18 02:01 94 01/27/18 02:01 65/47 01/27/18 02:00 Mechanical Ventilator 100 01/27/18 01:57 94 26 01/27/18 01:56 75/50 01/27/18 01:55 95 Nasal Cannula 3.0 01/27/18 01:52 36.2 81 22 115/52 96 Nasal Cannula 3.0 01/27/18 01:51 86/58 01/27/18 01:48 98 01/27/18 01:47 97/52 01/27/18 01:42 110 22 01/27/18 01:41 133/73 01/27/18 01:36 148/68 01/27/18 01:31 144/73 01/27/18 01:28 173/77 01/27/18 01:27 114 23 94 01/27/18 01:25 200/94 01/27/18 01:24 207/99 01/27/18 01:23 120 01/27/18 01:21 102 01/27/18 01:21 97 01/27/18 01:20 119 01/27/18 01:13 44 01/27/18 01:12 44 01/27/18 01:02 96 Nasal Cannula 3.0 01/27/18 00:06 76 pt is intubated Head: normocephalic Eyes: normal inspection ENT: normal ENT inspection Neck: supple, no JVD Respiratory/Chest: + decreased breath sounds, + wheezing Cardiovascular: regular rate, rhythm, no edema, no JVD, no murmur Abdomen/GI: soft, + distended (pt has middle line incision, the incision is intact, no drainage, ) Extremities/Musculoskelatal: normal inspection, no calf tenderness, normal capillary refill, + pertinent finding (right hip Fx ) Skin: normal color, warm/dry, no rash Laboratory Results Last 24 Hours Test 01/27/18 00:41 01/27/18 00:42 01/27/18 00:44 01/27/18 01:13 White Blood Count 6.54 K/uL Red Blood Count 3.01 M/uL Hemoglobin 9.4 g/dL Hematocrit 29.7 % Mean Corpuscular Volume 98.7 fL Mean Corpuscular Hemoglobin 31.2 pg Mean Corpuscular Hemoglobin Concent 31.6 g/dl Platelet Count 265 K/uL Mean Platelet Volume 8.8 fL Neutrophils (%) (Auto) 80.1 % Lymphocytes (%) (Auto) 9.8 % Monocytes (%) (Auto) 9.3 % Eosinophils (%) (Auto) 0.0 % Basophils (%) (Auto) 0.2 % Neutrophils # (Auto) 5.24 K/uL Lymphocytes # (Auto) 0.64 K/uL Monocytes # (Auto) 0.61 K/uL Eosinophils # (Auto) 0.00 K/uL Basophils # (Auto) 0.01 K/uL RDW Standard Deviation 66.8 fL RDW Coefficient of Variation 18.6 % Immature Granulocyte % (Auto) 0.6 % Immature Granulocyte # (Auto) 0.04 K/uL Red Blood Cell Morphology Unremarkable Prothrombin Time 31.5 SECONDS Prothromb Time International Ratio 3.1 Activated Partial Thromboplast Time 131.2 SECONDS Partial Thromboplastin Ratio 5.0 Venous Blood pH 7.33 Venous Blood Partial Pressure CO2 45 mmHg Venous Blood Partial Pressure O2 42 mmHg Venous Blood HCO3 23 mmol/L Venous Blood Oxygen Saturation 72.0 % Venous Blood Base Excess -3.2 mEq/L Sodium Level 138 mmol/L Potassium Level 4.6 mmol/L Chloride Level 105 mmol/L Carbon Dioxide Level 23 mmol/L Anion Gap 10.0 mmol/L Blood Urea Nitrogen 27 mg/dl Creatinine 3.12 mg/dl Estimated GFR () 16.9 Estimated GFR (Non- 14.6 BUN/Creatinine Ratio 8.5 Random Glucose 120 mg/dl Calcium Level 8.1 mg/dl Total Bilirubin 0.4 mg/dl Aspartate Amino Transf (AST/SGOT) 19 U/L Alanine Aminotransferase (ALT/SGPT) < 6 U/L Alkaline Phosphatase 143 U/L Troponin I 0.022 ng/ml Total Protein 5.3 gm/dl Albumin 1.4 gm/dl Globulin 3.9 gm/dl Albumin/Globulin Ratio 0.4 Procalcitonin 1.34 ng/ml Bedside Lactic Acid Venous 2.35 mmol/L Bedside Glucose 118 mg/dl Test 01/27/18 01:51 01/27/18 04:49 01/27/18 05:02 01/27/18 06:45 Arterial Blood pH 7.26 Arterial Blood Partial Pressure CO2 44 mmHg Arterial Blood Partial Pressure O2 240 mm/Hg Arterial Blood HCO3 19 mmol/L Arterial Blood Oxygen Saturation 99.2 % Arterial Blood Base Excess -7.5 mEq/L Arterial Blood Gas Delivery 100% Marcio Test POS Pass Lactic Acid Level 4.0 mmol/L 2.7 mmol/L White Blood Count 3.77 K/uL Red Blood Count 3.17 M/uL Hemoglobin 9.7 g/dL Hematocrit 31.0 % Mean Corpuscular Volume 97.8 fL Mean Corpuscular Hemoglobin 30.6 pg Mean Corpuscular Hemoglobin Concent 31.3 g/dl Platelet Count 265 K/uL Mean Platelet Volume 8.6 fL Neutrophils (%) (Auto) 88.6 % Lymphocytes (%) (Auto) 7.4 % Monocytes (%) (Auto) 2.9 % Eosinophils (%) (Auto) 0.0 % Basophils (%) (Auto) 0.3 % Neutrophils # (Auto) 3.34 K/uL Lymphocytes # (Auto) 0.28 K/uL Monocytes # (Auto) 0.11 K/uL Eosinophils # (Auto) 0.00 K/uL Basophils # (Auto) 0.01 K/uL RDW Standard Deviation 66.8 fL RDW Coefficient of Variation 18.6 % Immature Granulocyte % (Auto) 0.8 % Immature Granulocyte # (Auto) 0.03 K/uL Toxic Vacuolation 1+ Prothrombin Time 26.9 SECONDS Prothromb Time International Ratio 2.6 Activated Partial Thromboplast Time 39.4 SECONDS Partial Thromboplastin Ratio 1.5 Sodium Level 137 mmol/L Potassium Level 4.3 mmol/L Chloride Level 106 mmol/L Carbon Dioxide Level 21 mmol/L Anion Gap 10.0 mmol/L Blood Urea Nitrogen 28 mg/dl Creatinine 3.13 mg/dl Est Creatinine Clear Calc Drug Dose 13.6 ml/min Estimated GFR () 16.9 Estimated GFR (Non- 14.6 BUN/Creatinine Ratio 8.9 Random Glucose 166 mg/dl Calcium Level 8.0 mg/dl Phosphorus Level 4.9 mg/dl Magnesium Level 1.8 mg/dl Total Bilirubin 0.5 mg/dl Direct Bilirubin 0.1 mg/dl Aspartate Amino Transf (AST/SGOT) 25 U/L Alanine Aminotransferase (ALT/SGPT) < 6 U/L Alkaline Phosphatase 153 U/L Total Protein 5.0 gm/dl Albumin 1.3 gm/dl Blood Gas Sample Site Art Line Bedside Blood Gas pH (LAB) 7.30 Bedside Blood Gas pCO2 (LAB) 43 mmHg Bedside Blood Gas pO2 (LAB) 62 mmHg Bedside Blood Gas HCO3 (LAB) 21 meq/L Bedside Blood Gas Total CO2 22 mEq/l Bedside Blood Gas Base Excess (LAB) -5.0 meq/L Bedside Blood Gas O2 Saturation 88.0 % Oxygen Delivery Device Ventilator Bedside Oxygen Rate (breaths/min) 18 Blood Gas Minute Ventilation 12.8 Bedside FiO2 60 % Blood Gas Tidal Volume 400 Blood Gas PEEP 5 Bedside Glucose (other) 166 mg/dl Test 01/27/18 12:15 Ionized Calcium 1.18 mmol/l Assessment & Plan CT scan-FINDINGS: The chest CT will be reported separately. However, visualized portions of the chest demonstrate bilateral pleural effusions with associated subpleural opacities which may reflect atelectasis or consolidation. There are groundglass opacities within the aerated portions of the lungs. The tip of the nasogastric tube projects over the gastric cardia. The tube could be advanced 3 cm. Evaluation of the abdomen and pelvis is suboptimal given the lack of IV contrast. There is oral contrast within portions of small and large bowel. Anasarca is noted. There are gallstones within the gallbladder. Numerous pancreatic parenchymal calcifications are noted with glandular atrophy. Both [place] kidneys are atrophic. Unenhanced images of the spleen, adrenal glands are unremarkable. There is extensive atherosclerotic calcification. There are skin dawna from recent laparotomy. No pneumatosis, free air or portal venous gas is present. The majority of the small bowel is moderately dilated and fluid-filled. There is contrast within portions of the distal small bowel as well as the colon. However, the distal small bowel is decompressed and feces is noted within a distal small bowel loop. The findings could reflect a small bowel obstruction or an ileus. There is contrast within the appendix. Doran balloon is present within the bladder. There are no suspicious osseous lesions. There is no fluid collection to suggest an abscess on this unenhanced exam. There is trace ascites. IMPRESSION: 1. Suboptimal evaluation given lack of IV contrast, paucity of intra-abdominal fat and generalized anasarca. 2. Majority of small bowel mildly dilated fluid filled with decompressed distal small bowel loops. However, contrast within portions of the colon and distal small bowel. Possible transition point within the right lower quadrant. The findings could reflect a small bowel obstruction. However, an ileus could appear similar. 3. Cholelithiasis. 4. Findings suggestive of chronic pancreatitis. 5. Nasogastric tube projects of the gastric cardia. The tube could be advanced 3 cm. 6. Trace ascites. 7. Markedly atrophic kidneys. Assessment: pt is a 67 year old female who was admitted to ICU for SOB, pt is intubated now, pt had perforated appendicitis which was treated with antibiotic on 08/2017, then pt developed multiple abscess on abdomen, pt was transfered to [facility], pt had exploratory laparotomy, no appendectomy was done at that time, based complex history, co-morbility, I recommend to transfer to [facility] for further treatment if pt's condition is stable. D/W ICU attending.
[2018-01-27] MEDS: VASOPRESSIN INJ 50 UNITS in SODIUM CHLORIDE 0.9% 500ML 500 ML IV PRN (15:02)
[2018-01-27] MEDS: IMIPENEM/CILASTATIN IV 500 MG in D5W 100ML IV SCH (15:57)
[2018-01-27 16:13] LABS: HEMATOCRIT 32.3 % (37-47); HEMOGLOBIN 9.9 g/dL (12.0-16.0)
--- NOTE | 2018-01-27 17:26 | ECHOCARDIOGRAM REPORT ---
*NOTICE TO RECEIVING [employer] This information is strictly Confidential and protected under [place] law. [place] law prohibits you from making any further disclosure of this information unless further disclosure is expressly permitted by the written consent of the person to whom it pertains or is authorized by law. A general authorization for the release of medical or other information is not sufficient for this purpose. Hospital accepts no responsibility if the information is made available to any other person, INCLUDING THE PATIENT. Interpretation Summary * Name: ISIDRO BLANCO Study Date: 01/27/2018 06:59 AM BP: 89/35 mmHg * [facility]\1 HR: 85 * : 1950 (M/d/yyyy) Gender: Female Height: 62 in * Age: 67 yrs Ethnicity: [place] Weight: 127 lb * Ordering Physician: Efra Fox * Referring Physician: Self, Referred * Performed By: Christi Riggs, [facility] * * Reason For Study: CARDIAC ARREST * BSA: 1.6 m2 * -- Conclusions -- * The left ventricular cavity is small. * There is moderate concentric left ventricular hypertrophy. * Ejection Fraction = 60-65%. * The right ventricular systolic function is normal. * Aortic valve sclerosis moderate, without significant aortic valvular stenosis. * There is trace mitral regurgitation. * There is moderate tricuspid regurgitation. * Mild pulmonary hypertension. Procedure Details * A complete two-dimensional transthoracic echocardiogram was performed (2D, M-mode, Doppler and color flow Doppler). Left Ventricle * The left ventricular cavity is small. * There is moderate concentric left ventricular hypertrophy. * Left ventricular systolic function is normal. * Ejection Fraction = 60-65%. Right Ventricle * The right ventricle is normal size. * The right ventricular systolic function is normal. Atria * The left atrial size is normal. * Right atrial size is normal. * The interatrial septum is intact with no evidence for an atrial septal defect. Mitral Valve * There is moderate mitral annular calcification. * There is trace mitral regurgitation. Tricuspid Valve * The tricuspid valve is not well visualized, but is grossly normal. * There is moderate tricuspid regurgitation. Aortic Valve * Aortic valve sclerosis moderate, without significant aortic valvular stenosis. * No aortic regurgitation is present. Pulmonic Valve * The pulmonic valve is not well visualized. Great Vessels * The aortic root and proximal ascending aorta are normal sized. Pericardium/Pleural * There is no pericardial effusion. MMode 2D Measurements and Calculations IVSd 1.1 cm IVSs 1.3 cm LVIDd 3.5 cm LVIDs 2.6 cm LVPWd 0.95 cm LVPWs 1.2 cm IVS/LVPW 1.1 FS 26.7 % EDV(Teich) 51.0 ml ESV(Teich) 23.9 ml EF(Teich) 53.1 % EDV(cubed) 43.0 ml ESV(cubed) 16.9 ml EF(cubed) 60.6 % % IVS thick 19.1 % % LVPW thick 31.1 % LV mass(C)d 104.8 grams LV mass(C)dI 66.5 grams/m\S\2 LV mass(C)s 96.0 grams LV mass(C)sI 60.9 grams/m\S\2 SV(Teich) 27.1 ml SI(Teich) 17.2 ml/m\S\2 SV(cubed) 26.0 ml SI(cubed) 16.5 ml/m\S\2 Ao root diam 2.6 cm Ao root area 5.1 cm\S\2 ACS 1.6 cm LA dimension 2.5 cm LA/Ao 0.98 LVOT diam 1.7 cm LVOT area 2.3 cm\S\2 Doppler Measurements and Calculations MV E max yenni 48.5 cm/sec MV A max yenni 54.5 cm/sec MV E/A 0.89 MV P1/2t max yenni 68.1 cm/sec MV P1/2t 89.1 msec MVA(P1/2t) 2.5 cm\S\2 MV dec slope 223.7 cm/sec\S\2 MV dec time 0.34 sec Ao V2 max 116.8 cm/sec Ao max PG 5.5 mmHg Ao max PG (full) 2.3 mmHg ADRIANA(V,A) 1.7 cm\S\2 ADRIANA(V,D) 1.7 cm\S\2 LV V1 max PG 3.1 mmHg LV V1 max 88.4 cm/sec PA V2 max 114.3 cm/sec PA max PG 5.2 mmHg PI max yenni 231.1 cm/sec PI max PG 21.4 mmHg PI dec slope 145.1 cm/sec\S\2 PI P1/2t 466.5 msec TR max yenni 330.0 cm/sec
--- NOTE | 2018-01-27 20:05 | DIAGNOSTIC IMAGING REPORT ---
ULTRASOUND BILATERAL LOWER EXTREMITY VENOUS CLINICAL HISTORY: Cardiac arrest. COMPARISON STUDY: No priors. TECHNIQUE: Real-time, grayscale, and color Doppler sonography of the deep veins of the right and left lower extremity was performed from the inguinal crease to the calf. Compression and augmentation were utilized. FINDINGS: There is no sonographic evidence of deep venous thrombosis identified in the right or left lower extremity. The common femoral, superficial femoral, and popliteal veins are patent and normally compressible bilaterally. The greater saphenous vein and the profunda femoris vein at the junction with the common femoral vein are clear in both legs. The visualized calf veins are patent bilaterally. Soft tissue edema is present in both legs. IMPRESSION: There is no sonographic evidence of deep venous thrombosis identified in the right or left lower extremity. Electronically signed by: Frankie Beckett M.D. 01/27/2018 8:04 PM Dictated Date/Time: 01/27/2018 8:03 PM
--- NOTE | 2018-01-27 20:06 | Progress Note ---
Medicine Progress Note Date & Time of Visit: Jan 27, 2018 at 19:53. Subjective Status post bronchoscopy Patient being weaned off propofol Remains on mechanical ventilator Drowsy but opens eyes to tactile stimuli and drifts back to sleep Does not seem to be in distress or pain Objective Last 8 Hrs Date Time Temp Pulse Resp B/P (MAP) Pulse Ox O2 Delivery O2 Flow Rate FiO2 01/27/18 19:36 65 01/27/18 18:00 86 22 147/39 (75) 91 Mechanical Ventilator 65 01/27/18 17:09 65 01/27/18 17:00 85 25 138/40 (72) 92 Mechanical Ventilator 65 01/27/18 16:00 65 01/27/18 16:00 36.9 85 24 121/41 (67) 92 Mechanical Ventilator 65 01/27/18 16:00 Mechanical Ventilator 65 01/27/18 15:00 81 25 97/37 (57) 91 Mechanical Ventilator 65 01/27/18 14:12 65 01/27/18 14:00 93 23 118/39 (65) 94 Mechanical Ventilator 65 01/27/18 13:00 87 26 102/40 (60) 92 Mechanical Ventilator 65 01/27/18 12:00 36.8 94 28 81/36 (51) 93 Mechanical Ventilator 65 01/27/18 12:00 65 01/27/18 12:00 Mechanical Ventilator 65 Physical Exam: General-drowsy, follows simple commands like gripping examiner's hands Not in distress Head- atraumatic Eyes- PERRL, EOMI, anicteric ENT-endotracheal tube in place, NG tube in place with bilious output Neck- supple, no JVD, no adenopathy Lungs-mild rhonchi bilaterally, no wheezing Heart- regular rhythm; no murmur, normal rate Abdomen- normal bowel sounds, positive midline surgical scar with dawna in place, healing well , soft, nontender, mild to moderate abdominal distention Extremities- no pretibial edema, no calf tenderness; peripheral pulses intact Neuro-patient drowsy, sedation being weaned off, neurologic exam difficult to perform fully The patient opens eyes to verbal stimuli, can molasses preparer examiner's hands equally bilaterally Skin- warm & dry Laboratory Results: Last 24 Hours Test 01/27/18 00:41 01/27/18 00:42 01/27/18 00:44 01/27/18 01:13 White Blood Count 6.54 K/uL Red Blood Count 3.01 M/uL Hemoglobin 9.4 g/dL Hematocrit 29.7 % Mean Corpuscular Volume 98.7 fL Mean Corpuscular Hemoglobin 31.2 pg Mean Corpuscular Hemoglobin Concent 31.6 g/dl Platelet Count 265 K/uL Mean Platelet Volume 8.8 fL Neutrophils (%) (Auto) 80.1 % Lymphocytes (%) (Auto) 9.8 % Monocytes (%) (Auto) 9.3 % Eosinophils (%) (Auto) 0.0 % Basophils (%) (Auto) 0.2 % Neutrophils # (Auto) 5.24 K/uL Lymphocytes # (Auto) 0.64 K/uL Monocytes # (Auto) 0.61 K/uL Eosinophils # (Auto) 0.00 K/uL Basophils # (Auto) 0.01 K/uL RDW Standard Deviation 66.8 fL RDW Coefficient of Variation 18.6 % Immature Granulocyte % (Auto) 0.6 % Immature Granulocyte # (Auto) 0.04 K/uL Red Blood Cell Morphology Unremarkable Prothrombin Time 31.5 SECONDS Prothromb Time International Ratio 3.1 Activated Partial Thromboplast Time 131.2 SECONDS Partial Thromboplastin Ratio 5.0 Venous Blood pH 7.33 Venous Blood Partial Pressure CO2 45 mmHg Venous Blood Partial Pressure O2 42 mmHg Venous Blood HCO3 23 mmol/L Venous Blood Oxygen Saturation 72.0 % Venous Blood Base Excess -3.2 mEq/L Sodium Level 138 mmol/L Potassium Level 4.6 mmol/L Chloride Level 105 mmol/L Carbon Dioxide Level 23 mmol/L Anion Gap 10.0 mmol/L Blood Urea Nitrogen 27 mg/dl Creatinine 3.12 mg/dl Estimated GFR () 16.9 Estimated GFR (Non- 14.6 BUN/Creatinine Ratio 8.5 Random Glucose 120 mg/dl Calcium Level 8.1 mg/dl Total Bilirubin 0.4 mg/dl Aspartate Amino Transf (AST/SGOT) 19 U/L Alanine Aminotransferase (ALT/SGPT) < 6 U/L Alkaline Phosphatase 143 U/L Troponin I 0.022 ng/ml Total Protein 5.3 gm/dl Albumin 1.4 gm/dl Globulin 3.9 gm/dl Albumin/Globulin Ratio 0.4 Procalcitonin 1.34 ng/ml Bedside Lactic Acid Venous 2.35 mmol/L Bedside Glucose 118 mg/dl Test 01/27/18 01:51 01/27/18 04:49 01/27/18 05:02 01/27/18 06:45 Arterial Blood pH 7.26 Arterial Blood Partial Pressure CO2 44 mmHg Arterial Blood Partial Pressure O2 240 mm/Hg Arterial Blood HCO3 19 mmol/L Arterial Blood Oxygen Saturation 99.2 % Arterial Blood Base Excess -7.5 mEq/L Arterial Blood Gas Delivery 100% Marcio Test POS Pass Lactic Acid Level 4.0 mmol/L 2.7 mmol/L White Blood Count 3.77 K/uL Red Blood Count 3.17 M/uL Hemoglobin 9.7 g/dL Hematocrit 31.0 % Mean Corpuscular Volume 97.8 fL Mean Corpuscular Hemoglobin 30.6 pg Mean Corpuscular Hemoglobin Concent 31.3 g/dl Platelet Count 265 K/uL Mean Platelet Volume 8.6 fL Neutrophils (%) (Auto) 88.6 % Lymphocytes (%) (Auto) 7.4 % Monocytes (%) (Auto) 2.9 % Eosinophils (%) (Auto) 0.0 % Basophils (%) (Auto) 0.3 % Neutrophils # (Auto) 3.34 K/uL Lymphocytes # (Auto) 0.28 K/uL Monocytes # (Auto) 0.11 K/uL Eosinophils # (Auto) 0.00 K/uL Basophils # (Auto) 0.01 K/uL RDW Standard Deviation 66.8 fL RDW Coefficient of Variation 18.6 % Immature Granulocyte % (Auto) 0.8 % Immature Granulocyte # (Auto) 0.03 K/uL Toxic Vacuolation 1+ Prothrombin Time 26.9 SECONDS Prothromb Time International Ratio 2.6 Activated Partial Thromboplast Time 39.4 SECONDS Partial Thromboplastin Ratio 1.5 Sodium Level 137 mmol/L Potassium Level 4.3 mmol/L Chloride Level 106 mmol/L Carbon Dioxide Level 21 mmol/L Anion Gap 10.0 mmol/L Blood Urea Nitrogen 28 mg/dl Creatinine 3.13 mg/dl Est Creatinine Clear Calc Drug Dose 13.6 ml/min Estimated GFR () 16.9 Estimated GFR (Non- 14.6 BUN/Creatinine Ratio 8.9 Random Glucose 166 mg/dl Calcium Level 8.0 mg/dl Phosphorus Level 4.9 mg/dl Magnesium Level 1.8 mg/dl Total Bilirubin 0.5 mg/dl Direct Bilirubin 0.1 mg/dl Aspartate Amino Transf (AST/SGOT) 25 U/L Alanine Aminotransferase (ALT/SGPT) < 6 U/L Alkaline Phosphatase 153 U/L Total Protein 5.0 gm/dl Albumin 1.3 gm/dl Blood Gas Sample Site Art Line Bedside Blood Gas pH (LAB) 7.30 Bedside Blood Gas pCO2 (LAB) 43 mmHg Bedside Blood Gas pO2 (LAB) 62 mmHg Bedside Blood Gas HCO3 (LAB) 21 meq/L Bedside Blood Gas Total CO2 22 mEq/l Bedside Blood Gas Base Excess (LAB) -5.0 meq/L Bedside Blood Gas O2 Saturation 88.0 % Oxygen Delivery Device Ventilator Bedside Oxygen Rate (breaths/min) 18 Blood Gas Minute Ventilation 12.8 Bedside FiO2 60 % Blood Gas Tidal Volume 400 Blood Gas PEEP 5 Bedside Glucose (other) 166 mg/dl Test 01/27/18 12:15 01/27/18 12:23 01/27/18 16:03 01/27/18 18:25 Ionized Calcium 1.18 mmol/l Random Cortisol 115.28 mcg/dl Bedside Glucose (other) 190 mg/dl 232 mg/dl Hemoglobin 9.9 g/dL Hematocrit 32.3 % Lactic Acid Level 4.5 mmol/L Test 01/27/18 19:05 Date/Time Source Procedure Growth Status 01/27/18 19:07 Blood Blood Culture Pending Ordered 01/27/18 19:07 Blood Blood Culture Pending Ordered 01/27/18 01:03 Blood Blood Culture Pending Received 01/27/18 00:41 Blood Blood Culture - Preliminary Gram Positive Cocci Resulted 01/27/18 03:20 Nasal MRSA DNA Surveillance Screen - Final Specimen Negative for MRSA by DNA Probe Complete 01/27/18 10:50 Bronchial Washings Left Lower Lobe Fungal Smear Pending Received 01/27/18 10:50 Bronchial Washings Left Lower Lobe Fungal Culture Pending Received 01/27/18 10:50 Bronchial Washings Left Lower Lobe Acid Fast Stain Pending Received 01/27/18 10:50 Bronchial Washings Left Lower Lobe Mycobacterial Culture Pending Received 01/27/18 10:50 Bronchial Washings Left Lower Lobe Gram Stain Pending Received 01/27/18 10:50 Bronchial Washings Left Lower Lobe Bronchoalveolar Lavage Culture Pending Received 01/27/18 10:22 Sputum Endotracheal Wash (Luken Trap) Gram Stain Pending Received 01/27/18 10:22 Sputum Endotracheal Wash (Luken Trap) Sputum Culture Pending Received Assessment & Plan 67-year-old female with history of end-stage renal disease on hemodialysis, diabetes, hypertension, Status post recent abdominal surgery for intra-abdominal abscess from appendicitis Presenting after a cardiorespiratory arrest while in rehab facility. STATUS POST CARDIORESPIRATORY ARREST LIKELY SECONDARY TO ASPIRATION Currently intubated and on vasopressors Status post bronchoscopy today Follow-up cultures Mechanical ventilator management per body builder SHOCK LIKELY SECONDARY TO UNDERLYING INFECTION ASPIRATION [facility]ERS[facility] ASS[facility]IATED PNEUMONIA RULE OUT BACTEREMIA RULE OUT INFECTED SACRAL DECUBITUS ULCER Requiring norepinephrine and vasopressin Follow-up cultures On empiric vancomycin, imipenem, Levaquin ILEUS/POSSIBLE SMALL BOWEL OBSTRUCTION RECENT INTRA-ABDOMINAL SURGERY FOR INTRA-ABDOMINAL ABSCESS, APPENDICITIS Patient recently discharged from [facility] after abdominal surgery and currently undergoing rehab at [facility] Noted to have abdominal distention and subsequent vomiting leading to possible aspiration CT abdomen pelvis: Possible ileus versus small bowel obstruction General surgery consulted N.p.o. for now END-STAGE RENAL DISEASE ON HEMODIALYSIS Usually undergoes dialysis MWF Currently on vasopressors for septic shock Hemodialysis on hold for now pending reevaluation tomorrow Nephrology consulted HYPERTENSION Hold BP meds DIABETES MELLITUS TYPE 2 Insulin sliding scale DVT prophylaxis SCDs for now Consider heparin if no surgical intervention planned Status full code Patient's family relates to me that patients wish is to not be on a mechanical ventilator for longer than 3 days No living will at this time per family Disposition Pending Was in [facility] rehab prior to hospitalization Discussed case with family including her children in detail and at length Informed them regarding the patient's critical state All questions answered, they are comfortable with the plan of care Current Inpatient Medications: Current Inpatient Medications Medications (Trade) Dose Ordered Sig/Eduardo Route Start Time Stop Time Status Last Admin Dose Admin Miscellaneous Information (Consult) 1 ea UD PRN N/A 01/27/18 02:15 02/26/18 02:14 Norepinephrine Bitartrate 8 mg/ Dextrose 508 ml @ 0 mls/hr Q0M PRN IV 01/27/18 02:29 02/26/18 02:28 01/27/18 15:42 0.5 MLS/HR Pantoprazole Sodium 40 mg/ Syringe 10 ml @ 5 mls/min DAILY IV 01/27/18 09:00 02/26/18 08:59 01/27/18 08:55 5 MLS/MIN Imipenem/ Cilastatin Sodium (Consult) 1 ea UD PRN N/A 01/27/18 04:15 02/26/18 04:14 Levofloxacin (Consult) 1 ea UD PRN N/A 01/27/18 04:15 02/26/18 04:14 Insulin Aspart (novoLOG ASPART) SLIDING SCALE If C... Q4 SC 01/27/18 08:00 02/26/18 07:59 01/27/18 18:37 2 UNITS Glucose (Glucose 40% Gel) 15-30 GRAMS 15 GRAMS... UD PRN PO 01/27/18 05:15 02/26/18 05:14 Glucose (Glucose Chew Tab) 4-8 Tablets 4 Tabl... UD PRN PO 01/27/18 05:15 02/26/18 05:14 Dextrose (Dextrose 50% 50ML Syringe) 25-50ML OF 50% DW IV FOR... UD PRN IV 01/27/18 05:15 02/26/18 05:14 Glucagon (Glucagon Inj) 1 mg UD PRN SQ 01/27/18 05:15 02/26/18 05:14 Miscellaneous Information (Consult Glycemic Management Pharmacy) 1 ea DAILY PRN N/A 01/27/18 06:01 02/26/18 06:00 Ipratropium Odell (Atrovent Hfa Inhaler) 4 puffs Q4R INH 01/27/18 08:00 02/26/18 07:59 01/27/18 19:36 4 PUFFS Levalbuterol (Xopenex Hfa Inhaler) 4 puffs Q4R INH 01/27/18 08:00 02/26/18 07:59 01/27/18 19:36 4 PUFFS Fentanyl Citrate (Fentanyl Inj) 50 mcg Q2H PRN IV 01/27/18 09:45 02/10/18 09:44 01/27/18 10:44 50 MCG Midazolam HCl (Versed Inj) 2 mg Q2H PRN IV 01/27/18 09:45 02/26/18 09:44 01/27/18 14:24 2 MG Imipenem/ Cilastatin Sodium 500 mg/Dextrose 110 ml @ 110 mls/hr Q12@0400,1600 IV 01/27/18 16:00 02/03/18 15:59 01/27/18 15:57 110 MLS/HR Levofloxacin 500 mg/Prmx 100 ml @ 100 mls/hr Q2D@2100 IV 01/28/18 21:00 02/04/18 20:59 Insulin Glargine (Lantus Solostar Pen) QAM SC 01/28/18 09:00 02/27/18 08:59 Vasopressin 50 units/Sodium Chloride 502.5 ml @ 0 mls/hr Q0M PRN IV 01/27/18 12:30 02/26/18 12:29 01/27/18 15:02 24 MLS/HR
[2018-01-27] MEDS ORDERED: RANITIDINE HCL SYRUP 150 MG/10 ML UDC PO SCH (21:00)
[2018-01-27 21:29] LABS: INR 2.2 (0.9-1.1)
[2018-01-27 21:31] LABS: PTT PATIENT 47.6 SECONDS (21.0-31.0)
--- NOTE | 2018-01-27 22:40 | DIAGNOSTIC IMAGING REPORT ---
SINGLE VIEW CHEST CLINICAL HISTORY: Central venous catheter placement. FINDINGS: An AP, portable, upright chest radiograph is compared to chest x-ray and chest CT performed earlier the same day 01/27/2018. The examination is degraded by portable technique and patient rotation. An endotracheal tube, an enteric tube, and a right subclavian central venous catheter are unchanged in position. A right internal jugular central venous catheter is new from previous. The tip projects over the SVC. The heart is mildly enlarged and there is atherosclerotic calcification of the thoracic aorta. Pulmonary vascular congestion with interstitial edema has worsened from earlier today. There are bilateral perihilar airspace opacities as well as bibasilar consolidation. Layering pleural effusions are noted. No pneumothorax is seen. The skeletal structures are osteopenic. The bony thorax is grossly intact. Postoperative change is again seen in the left humerus. Vascular stents are noted in the left axilla. IMPRESSION: 1. A right internal jugular central venous catheter is new from previous. No pneumothorax is seen post procedure. 2. Additional lines and tubes are unchanged in position. 3. Congestive failure and pulmonary edema appears worsened from earlier today. 4. Layering pleural effusions with bibasilar consolidation. Correlate clinically for evidence of superimposed pneumonia. Electronically signed by: Frankie Beckett M.D. 01/27/2018 10:38 PM Dictated Date/Time: 01/27/2018 10:35 PM
--- NOTE | 2018-01-27 23:57 | Procedure Note ---
Procedure Note Procedure Date Jan 27, 2018. Central Line Procedure time out: side/site verified, patient ID confirmed, sterile procedure used Consent obtained: written Time of procedure: 22:00 Performed by: physician card clothier Indications: poor venous access, central drug admin. Prep: chlorhexadine prep, sterile drape, sterile procedures used Anesthesia: local injection, lidocaine 1% without epi Volume anesthetic (ml's): 5 Central line location: internal jugular (R) Additional details: percutaneous placement, ultrasound guidance, Selinger technique used, line sutured, good blood return CXR: appropriate position, no pneumothorax Patient tolerated procedure: well Post-procedure vital signs: reviewed and stable Comments: Critical Care Medicine Point of Care Bedside Ultrasound Procedure: Procedural Ultrasound Procedure Date: 01/27/18 Indication: Hypotension, Poor venous access and central drug admin Attending: Bonita Molina DO Resident/Physician Recreation Therapist: Natalie Ramirez PA-C If for central venous access Artery AND Vein visualized: Y Compressible Vein: Y Guidewire or Short Catheter seen in vein prior to dilation: Y Line confirmed in Vein with ultrasound: Y If no lung sliding or not obtained has CXR been ordered: Y Impression: Line in place Plan: May use line for Vasopressor administration. Discontinue use of temporary port Images obtained are saved for permanent record Consent was obtained prior to procedure. Indication, risks, and benefits were explained at length. Procedure: Procedure was performed under strict sterile field in O.R. fashion. The right neck and chest were cleaned with chloroprep scrub and the pt was draped in sterile fashion. The internal jugular vein was identified using ultrasound. After anesthetizing the area with 5cc of lidocaine, venous blood was withdrawn after accessing the vein under ultrasound guidance. The syringe was removed and a guide wire was advanced into the introducer needle.The dilator was advanced after being exchanged for the introducer needle. After appropriate dilation was obtained, the dilator was removed and the central catheter was placed over the guide wire using Seldinger technique. The wire was removed intact and the catheter was sutured at 15cm. A surgical dressing was placed over the catheter with a biofilm shield in place. At the time of the procedure each port was aspirated and then flushed properly. Pt tolerated the procedure well with no complications. Post procedure x-ray was completed, placement was appropriate and no pneumothorax was noted.
[2018-01-28] VITALS (7 sets, daily range): BP systolic 93–117; BP diastolic 28–50; PULSE 72–76; TEMP 36.4–36.5; O2SAT 95–97
[2018-01-28] MEDS: INSULIN ASPART 100 UNITS/ML 3 ML PEN SC SCH ×3 (01:07→08:32)
[2018-01-28] MEDS ORDERED: SODIUM CHLORIDE 0.9% IV SCH ×2 (01:30)
[2018-01-28] MEDS ORDERED: NURSING VERBAL MED ORDER ONE (01:30)
[2018-01-28] MEDS ORDERED: HEPARIN IV SCH ×2 (01:30)
[2018-01-28] MEDS: IPRATROPIUM BROMIDE HFA INHALER INH SCH ×2 (03:07→07:22)
[2018-01-28] MEDS: LEValbuterol HFA 15GM INHALER INH SCH ×2 (03:07→07:22)
[2018-01-28] MEDS: IMIPENEM/CILASTATIN IV 500 MG in D5W 100ML IV SCH (03:43)
[2018-01-28 05:38] LABS: HEMATOCRIT 27.2 % (37-47); HEMOGLOBIN 8.4 g/dL (12.0-16.0); MEAN CORPUSCULAR HEMOGLOBIN 30.9 pg (25-34); MEAN CORPUSCULAR HGB CONC 30.9 g/dl (32-36); MEAN PLATELET VOLUME 8.8 fL (7.4-10.4); NUCLEATED RED BLOOD CELL ABS 0.14 K/uL (0-0); PLATELET COUNT 213 K/uL (130-400); RED CELL DISTRIBUTION WIDTH CV 18.7 % (11.5-14.5); RED CELL DISTRIBUTION WIDTH SD 67.6 fL (36.4-46.3); WHITE BLOOD COUNT 12.68 K/uL (4.8-10.8)
[2018-01-28 05:55] LABS: INR 2.1 (0.9-1.1)
[2018-01-28] MEDS: NOREPINEPHRINE BIT INJ 8 MG in DEXTROSE 5% 500ML 500 ML IV PRN (05:59)
[2018-01-28 06:00] LABS: PTT PATIENT 51.7 SECONDS (21.0-31.0)
[2018-01-28 06:08] LABS: BASO % 0.1 %; BASO ABS # 0.01 K/uL (0-0.2); LYMPH % 7.7 %; LYMPH ABS # 0.98 K/uL (1.2-3.4); MONO % 5.3 %; MONO ABS # 0.67 K/uL (0.11-0.59); NEUT % 85.3 %; NEUT ABS # 10.82 K/uL (1.4-6.5)
[2018-01-28 06:12] LABS: ALBUMIN 1.1 gm/dl (3.4-5.0); ALT/SGPT < 6 U/L (12-78); AST/SGOT 20 U/L (15-37); BLOOD UREA NITROGEN 31 mg/dl (7-18); CARBON DIOXIDE 20 mmol/L (21-32); CREATININE 3.41 mg/dl (0.60-1.20); GLUCOSE 186 mg/dl (70-99); POTASSIUM 4.9 mmol/L (3.5-5.1); SODIUM 132 mmol/L (136-145)
[2018-01-28 06:14] LABS: TOTAL PROTEIN 4.8 gm/dl (6.4-8.2)
[2018-01-28 06:25] LABS: ALKALINE PHOSPHATASE 122 U/L (45-117)
--- NOTE | 2018-01-28 07:02 | Clinical Documentation Query ---
CLAUDIA Jerome : CLINICAL DOCUMENTATION QUERY Patient is a 67 year old female s/p recent open laparotomy for intra-abdominal abscesses related to appendicitis, presenting with cardiac/respiratory arrest likely in the setting of aspiration event in the setting of SBO/ileus with associated vomiting. No H&P exists in this record. Progress note documentation includes "RULE OUT INFECTED SACRAL DECUBITUS ULCER". As appropriate, please document the specificity in regards to appropriate ulcer staging. Thank you. In your clinical opinion is this patient being managed for: ( ) Pressure ulcer of sacral region, stage ____ ( ) Not Agree ( ) Other explanation of clinical findings (Please Explain) ( ) Unable to determine (Please Define) ( ) Need to Discuss The medical record reflects the following clinical findings, treatment, and risk factors. Clinical Indicators: As above Treatment: WOCN consultation, IV antibiotics, treatment of septic shock Risk Factors: Open wound Please clarify and document your clinical opinion in the progress notes and discharge summary. Terms such as "probable", "suspected", "likely", "questionable", "possible", or "still to be ruled out" are acceptable. IF IN AGREEMENT, YOU MUST DOCUMENT ABOVE DIAGNOSTIC STATEMENT IN DAILY PROGRESS NOTES AND DISCHARGE SUMMARY. This document is not part of the patient's record. Thank You, Bacilio Espitia, LEONIDAS [phone]
--- NOTE | 2018-01-28 07:15 | DIAGNOSTIC IMAGING REPORT ---
CHEST ONE VIEW PORTABLE CLINICAL HISTORY: aspiration pneumonia COMPARISON STUDY: Chest radiograph and chest CT January 27, 2018. FINDINGS: The tip of the nasogastric tube is not well visualized on this exam but is at least within the distal stomach. The tip of the endotracheal tube is 3.2 cm above the leodan. A right internal jugular central line is in place as well as a dual lumen right internal jugular dialysis catheter. There is no pneumothorax. Vascular stents within the left axillary noted. There are persistent perihilar and bibasilar opacities. There are small bilateral pleural effusions. No pneumothorax is visualized. IMPRESSION: 1. Tip of nasogastric tube not well visualized but at least within the distal stomach. Tube could be withdrawn 3 cm. 2. Satisfactory positioning of the endotracheal tube. 3. Persistent perihilar and bibasilar opacities highly suggestive of pneumonia. Small bilateral pleural effusions. Electronically signed by: Samir Dougherty M.D. 01/28/2018 7:14 AM Dictated Date/Time: 01/28/2018 7:12 AM
[2018-01-28] MEDS ORDERED: PHYTONADIONE INJ 5 MG in SODIUM CHLORIDE 0.9% 50ML 50 ML IV ONE (08:00)
[2018-01-28] MEDS: PANTOprazole INJ 40 MG in SYRINGE 0 ML IV SCH (08:51)
[2018-01-28] MEDS ORDERED: INSULIN GLARGINE SOLOSTAR 100 UNITS/ML 3 ML PEN SC SCH (09:00)
[2018-01-28] MEDS ORDERED: HEPARIN IV PRN ×2 (09:15)
[2018-01-28] MEDS ORDERED: VANCOMYCIN IV PRN ×2 (09:15)
--- NOTE | 2018-01-28 09:56 | Nephrology Progress Note ---
Nephrology Progress Note Date of Service Jan 28, 2018. Chief Complaint ESRD on HD Subjective Mrs. Turner was seen & examined in the ICU this morning. She is awake on mechanical ventilation. She does not appear to be in distress and follows commands appropriately. Review of Systems Mechanically ventilated Vital Signs Last 8 Hrs Date Time Temp Pulse Resp B/P (MAP) Pulse Ox O2 Delivery O2 Flow Rate FiO2 01/28/18 09:00 72 26 93/41 (58) 97 Mechanical Ventilator 60 01/28/18 08:00 36.4 73 24 104/28 (53) 95 Mechanical Ventilator 60 01/28/18 07:22 60 01/28/18 07:00 75 23 102/46 (64) 97 Mechanical Ventilator 60 01/28/18 06:00 76 24 109/49 (69) 96 Mechanical Ventilator 60 01/28/18 05:38 65 01/28/18 04:00 36.4 74 24 111/46 (67) 95 Mechanical Ventilator 60 01/28/18 04:00 95 Mechanical Ventilator 60 01/28/18 04:00 60 01/28/18 03:07 60 01/28/18 02:15 65 01/28/18 02:00 76 22 117/50 (72) 96 Mechanical Ventilator 65 Last Recorded Weight Weight (Kilograms): 55.400 Physical Exam General Appearance: no apparent distress Head: + pertinent finding (temporal muscle wasting) Eyes: PERRL, EOMI Neck: no adenopathy, + pertinent finding (R IJ THC and CVC in place) Respiratory/Chest: + pertinent finding (coarse breath sounds bilaterally) Cardiovascular: regular rate, rhythm Abdomen/GI: soft, + pertinent finding (hypoactive bowel sounds) Extremities/Musculoskelatal: no pedal edema Neurologic/Psych: alert Family History No pertinent family history Negative for CKD/ESRD Social History Smokeless Tobacco Use: No Drug Use: none Marital Status: Housing Status: lives with significant other 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 . Retired. Never a smoker Laboratory Results Past 24 Hours 01/27/18 16:03 01/28/18 05:22 Red Blood Count 2.72, Mean Corpuscular Volume 100.0, Mean Corpuscular Hemoglobin 30.9, Mean Corpuscular Hemoglobin Concent 30.9, Mean Platelet Volume 8.8, Neutrophils (%) (Auto) 85.3, Lymphocytes (%) (Auto) 7.7, Monocytes (%) ( Auto) 5.3, Eosinophils (%) (Auto) 0.0, Basophils (%) (Auto) 0.1, Neutrophils # ( Auto) 10.82, Lymphocytes # (Auto) 0.98, Monocytes # (Auto) 0.67, Eosinophils # ( Auto) 0.00, Basophils # (Auto) 0.01 01/28/18 05:22 Test 01/27/18 12:15 01/27/18 12:23 01/27/18 16:03 01/27/18 18:25 Ionized Calcium 1.18 mmol/l (1.12-1.32) Random Cortisol 115.28 mcg/dl Bedside Glucose (other) 190 mg/dl (70-99) 232 mg/dl (70-99) Lactic Acid Level 4.5 mmol/L (0.4-2.0) Test 01/27/18 20:31 01/27/18 20:37 01/28/18 00:22 01/28/18 04:19 Prothrombin Time 22.4 SECONDS (9.0-12.0) Prothromb Time International Ratio 2.2 (0.9-1.1) Activated Partial Thromboplast Time 47.6 SECONDS (21.0-31.0) Partial Thromboplastin Ratio 1.8 Bedside Glucose (other) 215 mg/dl (70-99) 198 mg/dl (70-99) 184 mg/dl (70-99) Test 01/28/18 05:22 01/28/18 06:23 01/28/18 08:33 01/28/18 09:23 White Blood Count 12.68 K/uL (4.8-10.8) Red Blood Count 2.72 M/uL (4.2-5.4) Hemoglobin 8.4 g/dL (12.0-16.0) Hematocrit 27.2 % (37-47) Mean Corpuscular Volume 100.0 fL (80-100) Mean Corpuscular Hemoglobin 30.9 pg (25-34) Mean Corpuscular Hemoglobin Concent 30.9 g/dl (32-36) Platelet Count 213 K/uL (130-400) Mean Platelet Volume 8.8 fL (7.4-10.4) Neutrophils (%) (Auto) 85.3 % Lymphocytes (%) (Auto) 7.7 % Monocytes (%) (Auto) 5.3 % Eosinophils (%) (Auto) 0.0 % Basophils (%) (Auto) 0.1 % Neutrophils # (Auto) 10.82 K/uL (1.4-6.5) Lymphocytes # (Auto) 0.98 K/uL (1.2-3.4) Monocytes # (Auto) 0.67 K/uL (0.11-0.59) Eosinophils # (Auto) 0.00 K/uL (0-0.5) Basophils # (Auto) 0.01 K/uL (0-0.2) RDW Standard Deviation 67.6 fL (36.4-46.3) RDW Coefficient of Variation 18.7 % (11.5-14.5) Immature Granulocyte % (Auto) 1.6 % Immature Granulocyte # (Auto) 0.20 K/uL (0.00-0.02) Nucleated RBC Absolute Count (auto) 0.14 K/uL (0-0) Nucleated Red Blood Cells % 1.1 % Toxic Vacuolation 1+ Dohle Bodies 1+ Polychromasia 1+ Prothrombin Time 22.1 SECONDS (9.0-12.0) Prothromb Time International Ratio 2.1 (0.9-1.1) Activated Partial Thromboplast Time 51.7 SECONDS (21.0-31.0) Partial Thromboplastin Ratio 2.0 Anion Gap 10.0 mmol/L (3-11) Est Creatinine Clear Calc Drug Dose 12.5 ml/min Estimated GFR () 15.2 Estimated GFR (Non- 13.1 BUN/Creatinine Ratio 9.2 (10-20) Lactic Acid Level 4.1 mmol/L (0.4-2.0) Calcium Level 8.0 mg/dl (8.5-10.1) Phosphorus Level 7.0 mg/dl (2.5-4.9) Magnesium Level 2.3 mg/dl (1.8-2.4) Total Bilirubin 0.4 mg/dl (0.2-1) Direct Bilirubin 0.2 mg/dl (0-0.2) Aspartate Amino Transf (AST/SGOT) 20 U/L (15-37) Alanine Aminotransferase (ALT/SGPT) < 6 U/L (12-78) Alkaline Phosphatase 122 U/L (45-117) Total Protein 4.8 gm/dl (6.4-8.2) Albumin 1.1 gm/dl (3.4-5.0) Random Vancomycin Level 15.5 mcg/ml Blood Gas Sample Site Art Line Bedside Blood Gas pH (LAB) 7.12 (7.35-7.45) Bedside Blood Gas pCO2 (LAB) 57 mmHg (35-46) Bedside Blood Gas pO2 (LAB) 88 mmHg (80-95) Bedside Blood Gas HCO3 (LAB) 19 meq/L (19-24) Bedside Blood Gas Total CO2 20 mEq/l (24-31) Bedside Blood Gas Base Excess (LAB) -11.0 meq/L (-9-1.8) Bedside Blood Gas O2 Saturation 93.0 % (90-95) Marcio Test NA Oxygen Delivery Device Ventilator Bedside Oxygen Rate (breaths/min) 18 Blood Gas Minute Ventilation 8.9 Bedside FiO2 60 % Blood Gas Tidal Volume 400 Blood Gas PEEP 8 Bedside Glucose (other) 158 mg/dl (70-99) Venous Blood pH 7.11 (7.36-7.41) Venous Blood Partial Pressure CO2 57 mmHg (38.0-50.0) Venous Blood Partial Pressure O2 100 mmHg Venous Blood HCO3 18 mmol/L Venous Blood Oxygen Saturation 94.6 % Venous Blood Base Excess -11.1 mEq/L Allergies Coded Allergies: Adhesives (Verified Allergy, Intermediate, RASH, 01/27/18) Amoxicillin (Verified Allergy, Intermediate, RASH, 01/27/18) Ampicillin (Verified Allergy, Intermediate, RASH, 01/27/18) Erythromycin (Verified Allergy, Intermediate, RASH, 01/27/18) Etodolac (Verified Allergy, Intermediate, RASH, 01/27/18) Penicillins (Verified Allergy, Intermediate, RASH, 01/27/18) Sulfa Antibiotics (Verified Allergy, Intermediate, RASH, 01/27/18) Aspirin (Verified Allergy, Mild, RASH, 01/27/18) Sevelamer (Verified Allergy, Mild, rash, 01/27/18) Medications Current Inpatient Medications Medications (Trade) Dose Ordered Sig/Eduardo Route Start Time Stop Time Status Last Admin Dose Admin Miscellaneous Information (Consult) 1 ea UD PRN N/A 01/27/18 02:15 02/26/18 02:14 Norepinephrine Bitartrate 8 mg/ Dextrose 508 ml @ 0 mls/hr Q0M PRN IV 01/27/18 02:29 02/26/18 02:28 01/28/18 05:59 44 MLS/HR Pantoprazole Sodium 40 mg/ Syringe 10 ml @ 5 mls/min DAILY IV 01/27/18 09:00 02/26/18 08:59 01/28/18 08:51 5 MLS/MIN Imipenem/ Cilastatin Sodium (Consult) 1 ea UD PRN N/A 01/27/18 04:15 02/26/18 04:14 Levofloxacin (Consult) 1 ea UD PRN N/A 01/27/18 04:15 02/26/18 04:14 Insulin Aspart (novoLOG ASPART) SLIDING SCALE If C... Q4 SC 01/27/18 08:00 02/26/18 07:59 01/28/18 04:22 1 UNITS Glucose (Glucose 40% Gel) 15-30 GRAMS 15 GRAMS... UD PRN PO 01/27/18 05:15 02/26/18 05:14 Glucose (Glucose Chew Tab) 4-8 Tablets 4 Tabl... UD PRN PO 01/27/18 05:15 02/26/18 05:14 Dextrose (Dextrose 50% 50ML Syringe) 25-50ML OF 50% DW IV FOR... UD PRN IV 01/27/18 05:15 02/26/18 05:14 Glucagon (Glucagon Inj) 1 mg UD PRN SQ 01/27/18 05:15 02/26/18 05:14 Miscellaneous Information (Consult Glycemic Management Pharmacy) 1 ea DAILY PRN N/A 01/27/18 06:01 02/26/18 06:00 Ipratropium [place] (Atrovent Hfa Inhaler) 4 puffs Q4R INH 01/27/18 08:00 02/26/18 07:59 01/28/18 07:22 4 PUFFS Levalbuterol (Xopenex Hfa Inhaler) 4 puffs Q4R INH 01/27/18 08:00 02/26/18 07:59 01/28/18 07:22 4 PUFFS Fentanyl Citrate (Fentanyl Inj) 50 mcg Q2H PRN IV 01/27/18 09:45 02/10/18 09:44 01/27/18 10:44 50 MCG Midazolam HCl (Versed Inj) 2 mg Q2H PRN IV 01/27/18 09:45 02/26/18 09:44 01/27/18 14:24 2 MG Imipenem/ Cilastatin Sodium 500 mg/Dextrose 110 ml @ 110 mls/hr Q12@0400,1600 IV 01/27/18 16:00 02/03/18 15:59 01/28/18 03:43 110 MLS/HR Levofloxacin 500 mg/Prmx 100 ml @ 100 mls/hr Q2D@2100 IV 01/28/18 21:00 02/04/18 20:59 Insulin Glargine (Lantus Solostar Pen) QAM SC 01/28/18 09:00 02/27/18 08:59 01/28/18 08:52 4 UNITS Vasopressin 50 units/Sodium Chloride 502.5 ml @ 0 mls/hr Q0M PRN IV 01/27/18 12:30 02/26/18 12:29 01/27/18 15:02 24 MLS/HR Heparin Sodium (Porcine) (Heparin 10 Unit/ ml 5 ml Flush) 5 ml PRN PRN FLUSH 01/28/18 07:15 02/27/18 07:14 Vancomycin HCl 10 mg/Heparin Sodium (Porcine) 37823 unit/Syringe 4 ml @ 0 mls/min PRN PRN IV 01/28/18 09:15 02/11/18 09:14 Heparin Sodium (Porcine) (Heparin Sq 5000 Unit/0.5ml) 5,000 unit Q12 SC 01/28/18 21:00 02/27/18 20:59 Impression (1) End-stage renal disease on hemodialysis (2) Aspiration pneumonia (3) Cardiac arrest (4) Septic shock (5) Ileus following gastrointestinal surgery (6) Diabetes (7) Von Willebrand disease (8) Shoulder fracture, left Recommendations ESRD: -- Patient remains clinically euvolemic. She is oxygenating well on 60% FiO2. Electrolyte balance is acceptable. BP is tenuous and patient requires pressor support. Hold HD today and will reassess in am. -- Protect L arm AVF -- One blood culture + gor gram positive cocci. Recommend consulting vascular surgery for IJ THC removal. Patient now has CVC in place ANEMIA: -- Hgb 9.7. Will monitor and provide KISHA w/ HD HTN: -- Continue pressor support to maintain MAP 65 or greater ID: -- Continue Imipenem and Levaquin. Pharmacy is assisting w/ drug dosing -- Await bronchoscopy results GI: -- Ileus v. obstruction. Surgery is following One hour critical care time provided to the patient today. This was necessary to review her medical record, perform physical exam and discuss medical management w/ ICU team.
[2018-01-28] MEDS: VASOPRESSIN INJ 50 UNITS in SODIUM CHLORIDE 0.9% 500ML 500 ML IV PRN (10:05)
--- NOTE | 2018-01-28 10:20 | Pharmacy Progress Note ---
Pharmacy Antibiotic Prog Note Date of Service Jan 28, 2018. Subjective The patient is currently receiving vancomycin prn HD/levels The patient is currently on day # 2 of vancomycin IV therapy. Objective Height (Feet): 5 Height (Inches): 2.00 Weight (Kilograms): 55.400 Lab Results (24hrs): Test 01/27/18 12:15 01/27/18 16:03 01/27/18 20:31 01/28/18 04:19 Ionized Calcium 1.18 mmol/l (1.12-1.32) Random Cortisol 115.28 mcg/dl Hemoglobin 9.9 g/dL (12.0-16.0) Hematocrit 32.3 % (37-47) Lactic Acid Level 4.5 mmol/L (0.4-2.0) Prothrombin Time 22.4 SECONDS (9.0-12.0) Prothromb Time International Ratio 2.2 (0.9-1.1) Activated Partial Thromboplast Time 47.6 SECONDS (21.0-31.0) Partial Thromboplastin Ratio 1.8 Bedside Glucose (other) 184 mg/dl (70-99) Test 01/28/18 05:22 01/28/18 06:23 01/28/18 08:33 01/28/18 09:23 White Blood Count 12.68 K/uL (4.8-10.8) Red Blood Count 2.72 M/uL (4.2-5.4) Hemoglobin 8.4 g/dL (12.0-16.0) Hematocrit 27.2 % (37-47) Mean Corpuscular Volume 100.0 fL (80-100) Mean Corpuscular Hemoglobin 30.9 pg (25-34) Mean Corpuscular Hemoglobin Concent 30.9 g/dl (32-36) Platelet Count 213 K/uL (130-400) Mean Platelet Volume 8.8 fL (7.4-10.4) Neutrophils (%) (Auto) 85.3 % Lymphocytes (%) (Auto) 7.7 % Monocytes (%) (Auto) 5.3 % Eosinophils (%) (Auto) 0.0 % Basophils (%) (Auto) 0.1 % Neutrophils # (Auto) 10.82 K/uL (1.4-6.5) Lymphocytes # (Auto) 0.98 K/uL (1.2-3.4) Monocytes # (Auto) 0.67 K/uL (0.11-0.59) Eosinophils # (Auto) 0.00 K/uL (0-0.5) Basophils # (Auto) 0.01 K/uL (0-0.2) RDW Standard Deviation 67.6 fL (36.4-46.3) RDW Coefficient of Variation 18.7 % (11.5-14.5) Immature Granulocyte % (Auto) 1.6 % Immature Granulocyte # (Auto) 0.20 K/uL (0.00-0.02) Nucleated RBC Absolute Count (auto) 0.14 K/uL (0-0) Nucleated Red Blood Cells % 1.1 % Toxic Vacuolation 1+ Dohle Bodies 1+ Polychromasia 1+ Prothrombin Time 22.1 SECONDS (9.0-12.0) Prothromb Time International Ratio 2.1 (0.9-1.1) Activated Partial Thromboplast Time 51.7 SECONDS (21.0-31.0) Partial Thromboplastin Ratio 2.0 Sodium Level 132 mmol/L (136-145) Potassium Level 4.9 mmol/L (3.5-5.1) Chloride Level 102 mmol/L (98-107) Carbon Dioxide Level 20 mmol/L (21-32) Anion Gap 10.0 mmol/L (3-11) Blood Urea Nitrogen 31 mg/dl (7-18) Creatinine 3.41 mg/dl (0.60-1.20) Est Creatinine Clear Calc Drug Dose 12.5 ml/min Estimated GFR () 15.2 Estimated GFR (Non- 13.1 BUN/Creatinine Ratio 9.2 (10-20) Random Glucose 186 mg/dl (70-99) Lactic Acid Level 4.1 mmol/L (0.4-2.0) Calcium Level 8.0 mg/dl (8.5-10.1) Phosphorus Level 7.0 mg/dl (2.5-4.9) Magnesium Level 2.3 mg/dl (1.8-2.4) Total Bilirubin 0.4 mg/dl (0.2-1) Direct Bilirubin 0.2 mg/dl (0-0.2) Aspartate Amino Transf (AST/SGOT) 20 U/L (15-37) Alanine Aminotransferase (ALT/SGPT) < 6 U/L (12-78) Alkaline Phosphatase 122 U/L (45-117) Total Protein 4.8 gm/dl (6.4-8.2) Albumin 1.1 gm/dl (3.4-5.0) Random Vancomycin Level 15.5 mcg/ml Blood Gas Sample Site Art Line Bedside Blood Gas pH (LAB) 7.12 (7.35-7.45) Bedside Blood Gas pCO2 (LAB) 57 mmHg (35-46) Bedside Blood Gas pO2 (LAB) 88 mmHg (80-95) Bedside Blood Gas HCO3 (LAB) 19 meq/L (19-24) Bedside Blood Gas Total CO2 20 mEq/l (24-31) Bedside Blood Gas Base Excess (LAB) -11.0 meq/L (-9-1.8) Bedside Blood Gas O2 Saturation 93.0 % (90-95) Marcio Test NA Oxygen Delivery Device Ventilator Bedside Oxygen Rate (breaths/min) 18 Blood Gas Minute Ventilation 8.9 Bedside FiO2 60 % Blood Gas Tidal Volume 400 Blood Gas PEEP 8 Bedside Glucose (other) 158 mg/dl (70-99) Venous Blood pH 7.11 (7.36-7.41) Venous Blood Partial Pressure CO2 57 mmHg (38.0-50.0) Venous Blood Partial Pressure O2 100 mmHg Venous Blood HCO3 18 mmol/L Venous Blood Oxygen Saturation 94.6 % Venous Blood Base Excess -11.1 mEq/L Assessment & Plan Assessment * 67 yo F critically ill in ICU with cardiac arrest 2nd aspiration event. She continues to be mechanically ventilated and requiring pressure support. * On imipenem, levofloxacin, and vancomycin day 2 - OK for now 2nd severity of illness. Bronchial washings cultures pending. * 1 of 2 blood cultures obtained 4/9 AM with Strep species - also adding vancomycin/heparin lock therapy. Repeat blood cultures 4/9 PM pending. * On HD MWF as outpatient - no HD planned for today but patient will likely require tomorrow as she will have gone 2 days without HD Vancomycin * Goal pre-HD level 15-20 mcg/mL * Level this AM is therapeutic at 15.5 mcg/mL * Do not anticipate significant non-HD clearance as patient had no documented UOP on previous visit December 2017. * However, level is at the lower end of the goal range and would prefer not to be subtherapeutic in a bacteremic patient * Therefore will give a very small dose today, targeting a level of ~ 20 mcg/ mL tomorrow AM * Random level prior to anticipated HD tomorrow Plan * Vancomycin 250 mg IV x1 now * Random vancomycin level w AM labs 01/29 Pharmacy will continue to follow and will adjust dose/frequency as necessary. Thank you
[2018-01-28] MEDS ORDERED: FENTANYL CITRATE INJ 50 MCG/1 ML 2 ML VIAL IV PRN (11:00)
[2018-01-28] MEDS ORDERED: SODIUM CHLORIDE 0.9% IV ONE (11:00)
[2018-01-28] MEDS ORDERED: VANCOMYCIN IV ONE (11:00)
--- NOTE | 2018-01-28 11:07 | Palliative Care Consultation ---
Consultation Date of Consultation: Jan 28, 2018. Requesting Physician: Dr. Molina Attending Physician: Dr. Molina Reason for Consultation: Goals of care History of Present Illness Pt is a 67 year old female with end-stage renal disease requiring hemodialysis typically on Sat/Sat/Sat. She recently developed an intra-abdominal abscess post open laparotomy in [place] a few weeks ago. She was discharged and at [facility] when she was transferred to the ED for suspected aspiration causing difficulty breathing. She was subsequently intubated and is now experiencing bacteremia and is requiring Levophed and Vasopressin for pressure support. Overall, the patient has poor prognosis. 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 Prior to meeting with the daughters, the pt's stated that she has been going to dialysis treatments and states she has said numerous times that she was getting tired and did not want to go to dialysis anymore. When speaking to the patient, who followed commands appropriately, she was persistent with agreeing that she wanted the ETT removed and did not want it back in. The patient expressed understanding knowing that her breathing may be compromised without the breathing tube. She expressed appropriately by squeezing hands and nodding 'yes' and 'no' that she did not want any escalation of care, including having the ETT put back in. The patient' s family all are in support of her decision. Social History Smoking Status: Never Smoker History of Alcohol Use: No Drug Use: none Marital Status: Housing Status: lives with significant other Occupation Status: retired Allergies Coded Allergies: Adhesives (Verified Allergy, Intermediate, RASH, 01/27/18) Amoxicillin (Verified Allergy, Intermediate, RASH, 01/27/18) Ampicillin (Verified Allergy, Intermediate, RASH, 01/27/18) Erythromycin (Verified Allergy, Intermediate, RASH, 01/27/18) Etodolac (Verified Allergy, Intermediate, RASH, 01/27/18) Penicillins (Verified Allergy, Intermediate, RASH, 01/27/18) Sulfa Antibiotics (Verified Allergy, Intermediate, RASH, 01/27/18) Aspirin (Verified Allergy, Mild, RASH, 01/27/18) Sevelamer (Verified Allergy, Mild, rash, 01/27/18) Medications Current Inpatient Medications Medications (Trade) Dose Ordered Sig/Eduardo Route Start Time Stop Time Status Last Admin Dose Admin Miscellaneous Information (Consult) 1 ea UD PRN N/A 01/27/18 02:15 02/26/18 02:14 Norepinephrine Bitartrate 8 mg/ Dextrose 508 ml @ 0 mls/hr Q0M PRN IV 01/27/18 02:29 02/26/18 02:28 01/28/18 05:59 44 MLS/HR Pantoprazole Sodium 40 mg/ Syringe 10 ml @ 5 mls/min DAILY IV 01/27/18 09:00 02/26/18 08:59 01/28/18 08:51 5 MLS/MIN Imipenem/ Cilastatin Sodium (Consult) 1 ea UD PRN N/A 01/27/18 04:15 02/26/18 04:14 Levofloxacin (Consult) 1 ea UD PRN N/A 01/27/18 04:15 02/26/18 04:14 Insulin Aspart (novoLOG ASPART) SLIDING SCALE If C... Q4 SC 01/27/18 08:00 02/26/18 07:59 01/28/18 04:22 1 UNITS Glucose (Glucose 40% Gel) 15-30 GRAMS 15 GRAMS... UD PRN PO 01/27/18 05:15 02/26/18 05:14 Glucose (Glucose Chew Tab) 4-8 Tablets 4 Tabl... UD PRN PO 01/27/18 05:15 02/26/18 05:14 Dextrose (Dextrose 50% 50ML Syringe) 25-50ML OF 50% DW IV FOR... UD PRN IV 01/27/18 05:15 02/26/18 05:14 Glucagon (Glucagon Inj) 1 mg UD PRN SQ 01/27/18 05:15 02/26/18 05:14 Miscellaneous Information (Consult Glycemic Management Pharmacy) 1 ea DAILY PRN N/A 01/27/18 06:01 02/26/18 06:00 Ipratropium [place] (Atrovent Hfa Inhaler) 4 puffs Q4R INH 01/27/18 08:00 02/26/18 07:59 01/28/18 07:22 4 PUFFS Levalbuterol (Xopenex Hfa Inhaler) 4 puffs Q4R INH 01/27/18 08:00 02/26/18 07:59 01/28/18 07:22 4 PUFFS Midazolam HCl (Versed Inj) 2 mg Q2H PRN IV 01/27/18 09:45 02/26/18 09:44 01/27/18 14:24 2 MG Imipenem/ Cilastatin Sodium 500 mg/Dextrose 110 ml @ 110 mls/hr Q12@0400,1600 IV 01/27/18 16:00 02/03/18 15:59 01/28/18 03:43 110 MLS/HR Levofloxacin 500 mg/Prmx 100 ml @ 100 mls/hr Q2D@2100 IV 01/28/18 21:00 02/04/18 20:59 Insulin Glargine (Lantus Solostar Pen) QAM SC 01/28/18 09:00 02/27/18 08:59 01/28/18 08:52 4 UNITS Vasopressin 50 units/Sodium Chloride 502.5 ml @ 0 mls/hr Q0M PRN IV 01/27/18 12:30 02/26/18 12:29 01/28/18 10:05 24 MLS/HR Heparin Sodium (Porcine) (Heparin 10 Unit/ ml 5 ml Flush) 5 ml PRN PRN FLUSH 01/28/18 07:15 02/27/18 07:14 Vancomycin HCl 10 mg/Heparin Sodium (Porcine) 83210 unit/Syringe 4 ml @ 0 mls/min PRN PRN IV 01/28/18 09:15 02/11/18 09:14 01/28/18 10:32 4 MLS/MIN Heparin Sodium (Porcine) (Heparin Sq 5000 Unit/0.5ml) 5,000 unit Q12 SC 01/28/18 21:00 02/27/18 20:59 Vancomycin HCl 250 mg/Sodium Chloride 105 ml @ 125 mls/hr TODAY@1100 ONCE IV 01/28/18 11:00 01/28/18 11:50 Fentanyl Citrate (Fentanyl Inj) 50 mcg Q15M PRN IV 01/28/18 11:00 02/10/18 09:44 UNV Physical Exam Date Time Temp Pulse Resp B/P (MAP) Pulse Ox O2 Delivery O2 Flow Rate FiO2 01/28/18 09:00 72 26 93/41 (58) 97 Mechanical Ventilator 60 01/28/18 08:00 Mechanical Ventilator 60 01/28/18 08:00 60 01/28/18 08:00 36.4 73 24 104/28 (53) 95 Mechanical Ventilator 60 01/28/18 07:22 60 01/28/18 07:00 75 23 102/46 (64) 97 Mechanical Ventilator 60 01/28/18 06:00 76 24 109/49 (69) 96 Mechanical Ventilator 60 01/28/18 05:38 65 01/28/18 04:00 36.4 74 24 111/46 (67) 95 Mechanical Ventilator 60 01/28/18 04:00 95 Mechanical Ventilator 60 01/28/18 04:00 60 01/28/18 03:07 60 01/28/18 02:15 65 01/28/18 02:00 76 22 117/50 (72) 96 Mechanical Ventilator 65 01/28/18 00:01 36.5 73 20 102/45 (64) 95 Mechanical Ventilator 65 01/27/18 23:59 65 01/27/18 23:59 95 Mechanical Ventilator 65 01/27/18 22:55 65 01/27/18 22:00 83 24 135/42 (73) 93 Mechanical Ventilator 65 01/27/18 20:00 36.5 81 22 118/52 (74) 93 Mechanical Ventilator 65 01/27/18 20:00 65 01/27/18 20:00 93 Mechanical Ventilator 65 01/27/18 19:36 65 01/27/18 18:00 86 22 147/39 (75) 91 Mechanical Ventilator 65 01/27/18 17:09 65 01/27/18 17:00 85 25 138/40 (72) 92 Mechanical Ventilator 65 01/27/18 16:00 65 01/27/18 16:00 36.9 85 24 121/41 (67) 92 Mechanical Ventilator 65 01/27/18 16:00 Mechanical Ventilator 65 01/27/18 15:00 81 25 97/37 (57) 91 Mechanical Ventilator 65 01/27/18 14:12 65 01/27/18 14:00 93 23 118/39 (65) 94 Mechanical Ventilator 65 01/27/18 13:00 87 26 102/40 (60) 92 Mechanical Ventilator 65 01/27/18 12:00 36.8 94 28 81/36 (51) 93 Mechanical Ventilator 65 01/27/18 12:00 65 01/27/18 12:00 Mechanical Ventilator 65 01/27/18 11:14 65 General Appearance: no apparent distress Eyes: PERRL ENT: + pertinent finding (ETT in place. ) Neck: no adenopathy, no JVD Respiratory: + pertinent finding (coarse lung sounds throughout) Cardiovascular: regular rate, rhythm, + pertinent finding (lower extremity anasarca B/L ) Abdomen: normal bowel sounds, non tender, soft, + pertinent finding (OG tube in place with biliary drainage) Musculoskeletal: pertinent finding (B/L UE 3/5 - able to squeeze appropriately on command) Neurologic/Psychiatric: + pertinent finding (She is awake on mechanical ventilation. She does not appear to be in distress and follows commands appropriately.) Skin: warm/dry Laboratory Results Last 24 Hours Test 01/27/18 12:15 01/27/18 12:23 01/27/18 16:03 01/27/18 18:25 Ionized Calcium 1.18 mmol/l Random Cortisol 115.28 mcg/dl Bedside Glucose (other) 190 mg/dl 232 mg/dl Hemoglobin 9.9 g/dL Hematocrit 32.3 % Lactic Acid Level 4.5 mmol/L Test 01/27/18 20:31 01/27/18 20:37 01/28/18 00:22 01/28/18 04:19 Prothrombin Time 22.4 SECONDS Prothromb Time International Ratio 2.2 Activated Partial Thromboplast Time 47.6 SECONDS Partial Thromboplastin Ratio 1.8 Bedside Glucose (other) 215 mg/dl 198 mg/dl 184 mg/dl Test 01/28/18 05:22 01/28/18 06:23 01/28/18 08:33 01/28/18 09:23 White Blood Count 12.68 K/uL Red Blood Count 2.72 M/uL Hemoglobin 8.4 g/dL Hematocrit 27.2 % Mean Corpuscular Volume 100.0 fL Mean Corpuscular Hemoglobin 30.9 pg Mean Corpuscular Hemoglobin Concent 30.9 g/dl Platelet Count 213 K/uL Mean Platelet Volume 8.8 fL Neutrophils (%) (Auto) 85.3 % Lymphocytes (%) (Auto) 7.7 % Monocytes (%) (Auto) 5.3 % Eosinophils (%) (Auto) 0.0 % Basophils (%) (Auto) 0.1 % Neutrophils # (Auto) 10.82 K/uL Lymphocytes # (Auto) 0.98 K/uL Monocytes # (Auto) 0.67 K/uL Eosinophils # (Auto) 0.00 K/uL Basophils # (Auto) 0.01 K/uL RDW Standard Deviation 67.6 fL RDW Coefficient of Variation 18.7 % Immature Granulocyte % (Auto) 1.6 % Immature Granulocyte # (Auto) 0.20 K/uL Nucleated RBC Absolute Count (auto) 0.14 K/uL Nucleated Red Blood Cells % 1.1 % Toxic Vacuolation 1+ Dohle Bodies 1+ Polychromasia 1+ Prothrombin Time 22.1 SECONDS Prothromb Time International Ratio 2.1 Activated Partial Thromboplast Time 51.7 SECONDS Partial Thromboplastin Ratio 2.0 Sodium Level 132 mmol/L Potassium Level 4.9 mmol/L Chloride Level 102 mmol/L Carbon Dioxide Level 20 mmol/L Anion Gap 10.0 mmol/L Blood Urea Nitrogen 31 mg/dl Creatinine 3.41 mg/dl Est Creatinine Clear Calc Drug Dose 12.5 ml/min Estimated GFR () 15.2 Estimated GFR (Non- 13.1 BUN/Creatinine Ratio 9.2 Random Glucose 186 mg/dl Lactic Acid Level 4.1 mmol/L Calcium Level 8.0 mg/dl Phosphorus Level 7.0 mg/dl Magnesium Level 2.3 mg/dl Total Bilirubin 0.4 mg/dl Direct Bilirubin 0.2 mg/dl Aspartate Amino Transf (AST/SGOT) 20 U/L Alanine Aminotransferase (ALT/SGPT) < 6 U/L Alkaline Phosphatase 122 U/L Total Protein 4.8 gm/dl Albumin 1.1 gm/dl Random Vancomycin Level 15.5 mcg/ml Blood Gas Sample Site Art Line Bedside Blood Gas pH (LAB) 7.12 Bedside Blood Gas pCO2 (LAB) 57 mmHg Bedside Blood Gas pO2 (LAB) 88 mmHg Bedside Blood Gas HCO3 (LAB) 19 meq/L Bedside Blood Gas Total CO2 20 mEq/l Bedside Blood Gas Base Excess (LAB) -11.0 meq/L Bedside Blood Gas O2 Saturation 93.0 % Marcio Test NA Oxygen Delivery Device Ventilator Bedside Oxygen Rate (breaths/min) 18 Blood Gas Minute Ventilation 8.9 Bedside FiO2 60 % Blood Gas Tidal Volume 400 Blood Gas PEEP 8 Bedside Glucose (other) 158 mg/dl Venous Blood pH 7.11 Venous Blood Partial Pressure CO2 57 mmHg Venous Blood Partial Pressure O2 100 mmHg Venous Blood HCO3 18 mmol/L Venous Blood Oxygen Saturation 94.6 % Venous Blood Base Excess -11.1 mEq/L Assessment & Plan Palliative Performance Scale: 20 % Goals of Care ESRD HD dependent DM2 HTN Palliative Care recs: -Wean off of ventilator as goal is terminal extubation -Continue weaning off of vasoactive gtts with no increase/escalation/or addition of new inotropic support -Continue supportive medications -Pt to be DNR/DNI post extubation -Morphine 2mg IV Q2 PRN for comfort. Use Roxanol 5 mg po Q2 if IV Morphine not controlling any discomfort -Atropine gtts 1% 4gtts Q1 PRN for any secretions. Thank you kindly for this consult. We will continue to offer support to the patient and family throughout this transition. Counseling and Coordination Total time spent more than 70 minutes with > 50% of the time spent assessing patient and discussing goals of care with patient, her , and two daughters at the bedside
--- NOTE | 2018-01-28 11:28 | Critical Care Progress Note ---
Critical Care Progress Note Date of Service Jan 28, 2018. ICU Day ICU Day Number: [address] Molina Subjective No complaints of pain. Significant discussion with palliative care, family, and patient. 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 Family reports that she has made several statements recently of not wanting to undergo further dialysis. During the family discussion it was felt that the patient would not want further escalation of care and understood that discontinuation of mechanical ventilation is not recommended at this time, the patient appears to have insight and understand that this may lead to her if she is unable to adequately oxygenate and ventilate and it is in accordance with her wishes that she desires the artificial life support discontinued. Objective General: Alert. nontoxic. Skin: Warm, dry, Head: Atraumatic Ears, nose, mouth and throat: Endotracheal tube present Cardiovascular: Cool extremities Respiratory: no respiratory distress Gastrointestinal: Non distended Musculoskeletal: No deformity Assessment & Plan Reason Critically Ill: 67-year-old female with end-stage renal disease on hemodialysis Saturday's presenting after cardiac arrest from respiratory mediated event and aspiration pneumonitis. Patient requiring vasoactive medications as well as multiple antibiotics and close hemodynamic monitoring. Neuro - * CAM ICU: NEGATIVE * RASS 0 * Sedation: Versed and fentanyl as needed Cardiac - * Cardiac Arrest w/ ROSC: * Aspiration event resulting in hypoxia --> arrest. Epi x1 w/ compressions w/ ROSC. * Hypotension requiring Levophed - titrate to MAPs >60 * Hypotension 2/2 CKD, Aspiration event, sepsis. * Echo reviewed * Monitor on Telemetry. Respiratory - * Acute Hypoxic Respiratory failure 2/2 Aspiration event and likely hypoventilation 2/2 SBO: * Currently intubated for airway protection s/p cardiac arrest. * Vent: AC/22/400/5/65% * CXR - aspiration pneumonia - lower lobe consolidation. * Abx (see ID). * Atrovent/Albuterol * P to F ratio less than 200 GI - * Status Post Open Laparoscopy w/ [place]out 2/2 intraabdominal abscesses: * CT - SBO/Ileus. * Conservative measures per Gen Surgery. * OG tube to Lower-intermittent suction. * Can discontinue intra-abdominal pressure monitoring RENAL/LYTES - * CKD on HD M/W/F: * Discussed with Dr. Decker * No hemodialysis today * I offered the patient to undergo dialysis today prior to extubation, she declined - * Essential anuric at baseline: * Discontinue Doran ENDO - * DMII: * ISS --> gtt per protocol. * h/o Hyperparathyroidism 2/2 CKD HEME - * Stable H&H at this point. * Elevated INR, will proceed with 5 mg of vitamin K * Will place SCDs for DVT prophylaxis, no DVT on venous duplex ultrasound * Heparin 5000 units twice daily for chemical prophylaxis ID - * Aspiration Pneumonia, Recent GI Surgery, Temporary HD Cath: * Blood Cultures x2 * Imipenem, Vanc, Levaquin * 1 blood culture positive for gram-positive cocci, will require repeat blood cultures * Vancomycin heparin lock of temporary HD catheter LINES/IV ACCESS - * PIVs x2 * RIGHT SC HD Cath * RIGHT Rad Art Line * Right internal jugular triple-lumen catheter CODE STATUS: DO NOT RESUSCITATE, no escalation of care. Extensive discussion with family, patient indicates that she does not desire further aggressive care , no escalation of care and will proceed with extubation. Patient does appear to have capacity and understands that this may hasten her , family acknowledges understanding as well and all in agreement with proceeding as this is in accordance with the patient's wishes. I have personally spent 55 minutes of critical care time in the direct management of this patient. This is a life/limb threatening event. This includes time spent evaluating patient, direct bedside care, chart review, placing orders, interpretation of diagnostic studies, discussion with consultants, patient, and/or family members regarding treatment decisions, as well as other required patient management activities. This time is exclusive of all separately billable procedures, and teaching time and separate from and in addition to any other critical care service time. Data Medications: Current Inpatient Medications Medications (Trade) Dose Ordered Sig/Eduardo Route Start Time Stop Time Status Last Admin Dose Admin Miscellaneous Information (Consult) 1 ea UD PRN N/A 01/27/18 02:15 02/26/18 02:14 Norepinephrine Bitartrate 8 mg/ Dextrose 508 ml @ 0 mls/hr Q0M PRN IV 01/27/18 02:29 02/26/18 02:28 01/28/18 05:59 44 MLS/HR Pantoprazole Sodium 40 mg/ Syringe 10 ml @ 5 mls/min DAILY IV 01/27/18 09:00 02/26/18 08:59 01/28/18 08:51 5 MLS/MIN Imipenem/ Cilastatin Sodium (Consult) 1 ea UD PRN N/A 01/27/18 04:15 02/26/18 04:14 Levofloxacin (Consult) 1 ea UD PRN N/A 01/27/18 04:15 02/26/18 04:14 Insulin Aspart (novoLOG ASPART) SLIDING SCALE If C... Q4 SC 01/27/18 08:00 02/26/18 07:59 01/28/18 04:22 1 UNITS Glucose (Glucose 40% Gel) 15-30 GRAMS 15 GRAMS... UD PRN PO 01/27/18 05:15 02/26/18 05:14 Glucose (Glucose Chew Tab) 4-8 Tablets 4 Tabl... UD PRN PO 01/27/18 05:15 02/26/18 05:14 Dextrose (Dextrose 50% 50ML Syringe) 25-50ML OF 50% DW IV FOR... UD PRN IV 01/27/18 05:15 02/26/18 05:14 Glucagon (Glucagon Inj) 1 mg UD PRN SQ 01/27/18 05:15 02/26/18 05:14 Miscellaneous Information (Consult Glycemic Management Pharmacy) 1 ea DAILY PRN N/A 01/27/18 06:01 02/26/18 06:00 Ipratropium [place] (Atrovent Hfa Inhaler) 4 puffs Q4R INH 01/27/18 08:00 02/26/18 07:59 01/28/18 07:22 4 PUFFS Levalbuterol (Xopenex Hfa Inhaler) 4 puffs Q4R INH 01/27/18 08:00 02/26/18 07:59 01/28/18 07:22 4 PUFFS Midazolam HCl (Versed Inj) 2 mg Q2H PRN IV 01/27/18 09:45 02/26/18 09:44 01/27/18 14:24 2 MG Imipenem/ Cilastatin Sodium 500 mg/Dextrose 110 ml @ 110 mls/hr Q12@0400,1600 IV 01/27/18 16:00 02/03/18 15:59 01/28/18 03:43 110 MLS/HR Levofloxacin 500 mg/Prmx 100 ml @ 100 mls/hr Q2D@2100 IV 01/28/18 21:00 02/04/18 20:59 Insulin Glargine (Lantus Solostar Pen) QAM SC 01/28/18 09:00 02/27/18 08:59 01/28/18 08:52 4 UNITS Vasopressin 50 units/Sodium Chloride 502.5 ml @ 0 mls/hr Q0M PRN IV 01/27/18 12:30 02/26/18 12:29 01/28/18 10:05 24 MLS/HR Heparin Sodium (Porcine) (Heparin 10 Unit/ ml 5 ml Flush) 5 ml PRN PRN FLUSH 01/28/18 07:15 02/27/18 07:14 Vancomycin HCl 10 mg/Heparin Sodium (Porcine) 60905 unit/Syringe 4 ml @ 0 mls/min PRN PRN IV 01/28/18 09:15 02/11/18 09:14 01/28/18 10:32 4 MLS/MIN Heparin Sodium (Porcine) (Heparin Sq 5000 Unit/0.5ml) 5,000 unit Q12 SC 01/28/18 21:00 02/27/18 20:59 Vancomycin HCl 250 mg/Sodium Chloride 105 ml @ 125 mls/hr TODAY@1100 ONCE IV 01/28/18 11:00 01/28/18 11:50 Fentanyl Citrate (Fentanyl Inj) 50 mcg Q15M PRN IV 01/28/18 11:00 02/10/18 09:44 UNV Vital Signs: Date Time Temp Pulse Resp B/P (MAP) Pulse Ox O2 Delivery O2 Flow Rate FiO2 01/28/18 09:00 72 26 93/41 (58) 97 Mechanical Ventilator 60 01/28/18 08:00 Mechanical Ventilator 60 01/28/18 08:00 60 01/28/18 08:00 36.4 73 24 104/28 (53) 95 Mechanical Ventilator 60 01/28/18 07:22 60 01/28/18 07:00 75 23 102/46 (64) 97 Mechanical Ventilator 60 01/28/18 06:00 76 24 109/49 (69) 96 Mechanical Ventilator 60 01/28/18 05:38 65 01/28/18 04:00 36.4 74 24 111/46 (67) 95 Mechanical Ventilator 60 01/28/18 04:00 95 Mechanical Ventilator 60 01/28/18 04:00 60 01/28/18 03:07 60 01/28/18 02:15 65 01/28/18 02:00 76 22 117/50 (72) 96 Mechanical Ventilator 65 01/28/18 00:01 36.5 73 20 102/45 (64) 95 Mechanical Ventilator 65 01/27/18 23:59 65 01/27/18 23:59 95 Mechanical Ventilator 65 01/27/18 22:55 65 01/27/18 22:00 83 24 135/42 (73) 93 Mechanical Ventilator 65 01/27/18 20:00 36.5 81 22 118/52 (74) 93 Mechanical Ventilator 65 01/27/18 20:00 65 01/27/18 20:00 93 Mechanical Ventilator 65 01/27/18 19:36 65 01/27/18 18:00 86 22 147/39 (75) 91 Mechanical Ventilator 65 01/27/18 17:09 65 01/27/18 17:00 85 25 138/40 (72) 92 Mechanical Ventilator 65 01/27/18 16:00 65 01/27/18 16:00 36.9 85 24 121/41 (67) 92 Mechanical Ventilator 65 01/27/18 16:00 Mechanical Ventilator 65 01/27/18 15:00 81 25 97/37 (57) 91 Mechanical Ventilator 65 01/27/18 14:12 65 01/27/18 14:00 93 23 118/39 (65) 94 Mechanical Ventilator 65 01/27/18 13:00 87 26 102/40 (60) 92 Mechanical Ventilator 65 01/27/18 12:00 36.8 94 28 81/36 (51) 93 Mechanical Ventilator 65 01/27/18 12:00 65 01/27/18 12:00 Mechanical Ventilator 65 01/27/18 11:14 65 01/27/18 11:00 94 24 82/34 (50) 99 Mechanical Ventilator 65 Laboratory Results: Last 24 Hours Test 01/27/18 12:15 01/27/18 12:23 01/27/18 16:03 01/27/18 18:25 Ionized Calcium 1.18 mmol/l Random Cortisol 115.28 mcg/dl Bedside Glucose (other) 190 mg/dl 232 mg/dl Hemoglobin 9.9 g/dL Hematocrit 32.3 % Lactic Acid Level 4.5 mmol/L Test 01/27/18 20:31 01/27/18 20:37 01/28/18 00:22 01/28/18 04:19 Prothrombin Time 22.4 SECONDS Prothromb Time International Ratio 2.2 Activated Partial Thromboplast Time 47.6 SECONDS Partial Thromboplastin Ratio 1.8 Bedside Glucose (other) 215 mg/dl 198 mg/dl 184 mg/dl Test 01/28/18 05:22 01/28/18 06:23 01/28/18 08:33 01/28/18 09:23 White Blood Count 12.68 K/uL Red Blood Count 2.72 M/uL Hemoglobin 8.4 g/dL Hematocrit 27.2 % Mean Corpuscular Volume 100.0 fL Mean Corpuscular Hemoglobin 30.9 pg Mean Corpuscular Hemoglobin Concent 30.9 g/dl Platelet Count 213 K/uL Mean Platelet Volume 8.8 fL Neutrophils (%) (Auto) 85.3 % Lymphocytes (%) (Auto) 7.7 % Monocytes (%) (Auto) 5.3 % Eosinophils (%) (Auto) 0.0 % Basophils (%) (Auto) 0.1 % Neutrophils # (Auto) 10.82 K/uL Lymphocytes # (Auto) 0.98 K/uL Monocytes # (Auto) 0.67 K/uL Eosinophils # (Auto) 0.00 K/uL Basophils # (Auto) 0.01 K/uL RDW Standard Deviation 67.6 fL RDW Coefficient of Variation 18.7 % Immature Granulocyte % (Auto) 1.6 % Immature Granulocyte # (Auto) 0.20 K/uL Nucleated RBC Absolute Count (auto) 0.14 K/uL Nucleated Red Blood Cells % 1.1 % Toxic Vacuolation 1+ Dohle Bodies 1+ Polychromasia 1+ Prothrombin Time 22.1 SECONDS Prothromb Time International Ratio 2.1 Activated Partial Thromboplast Time 51.7 SECONDS Partial Thromboplastin Ratio 2.0 Sodium Level 132 mmol/L Potassium Level 4.9 mmol/L Chloride Level 102 mmol/L Carbon Dioxide Level 20 mmol/L Anion Gap 10.0 mmol/L Blood Urea Nitrogen 31 mg/dl Creatinine 3.41 mg/dl Est Creatinine Clear Calc Drug Dose 12.5 ml/min Estimated GFR () 15.2 Estimated GFR (Non- 13.1 BUN/Creatinine Ratio 9.2 Random Glucose 186 mg/dl Lactic Acid Level 4.1 mmol/L Calcium Level 8.0 mg/dl Phosphorus Level 7.0 mg/dl Magnesium Level 2.3 mg/dl Total Bilirubin 0.4 mg/dl Direct Bilirubin 0.2 mg/dl Aspartate Amino Transf (AST/SGOT) 20 U/L Alanine Aminotransferase (ALT/SGPT) < 6 U/L Alkaline Phosphatase 122 U/L Total Protein 4.8 gm/dl Albumin 1.1 gm/dl Random Vancomycin Level 15.5 mcg/ml Blood Gas Sample Site Art Line Bedside Blood Gas pH (LAB) 7.12 Bedside Blood Gas pCO2 (LAB) 57 mmHg Bedside Blood Gas pO2 (LAB) 88 mmHg Bedside Blood Gas HCO3 (LAB) 19 meq/L Bedside Blood Gas Total CO2 20 mEq/l Bedside Blood Gas Base Excess (LAB) -11.0 meq/L Bedside Blood Gas O2 Saturation 93.0 % Marcio Test NA Oxygen Delivery Device Ventilator Bedside Oxygen Rate (breaths/min) 18 Blood Gas Minute Ventilation 8.9 Bedside FiO2 60 % Blood Gas Tidal Volume 400 Blood Gas PEEP 8 Bedside Glucose (other) 158 mg/dl Venous Blood pH 7.11 Venous Blood Partial Pressure CO2 57 mmHg Venous Blood Partial Pressure O2 100 mmHg Venous Blood HCO3 18 mmol/L Venous Blood Oxygen Saturation 94.6 % Venous Blood Base Excess -11.1 mEq/L
--- NOTE | 2018-01-28 11:30 | Death Pronouncement Note ---
Pronouncement Note Date & Time of Jan 28, 2018. 11:26 Pronouncement At time of pronouncement the patients pupils were fixed and dilated, there was no spontaneous respiratory effort, no palpable pulse, no audible heart tones, and no response to pain or voice.
--- NOTE | 2018-01-28 11:40 | Death Summary ---
Summary of Admission Date Jan 27, 2018 at 02:38 Date & Time of Jan 28, 2018. 11:26 Cause of Sepsis Secondary Diagnoses Aspiration pneumonia Acute hypoxic respiratory failure End-stage renal disease: Hemodialysis dependent Lactic acidosis Hospital Course Patient is a 67-year-old female who presented on January 27, 2018 with a chief complaint of persistent shortness of breath and cough. There is concern about aspiration medications and food. During her evaluation the patient became acutely dyspneic and ultimately had a cardiac arrest. She was successfully resuscitated and intubated in the emergency department. She was transferred to the ICU for further evaluation and management. She was started on broad- spectrum antibiotics and underwent a bronchoscopy on January 27, 2018 secondary to infiltrates and hypoxic respiratory failure. Patient was found to have a positive blood culture which certainly could be one source of her sepsis with the pulmonary infection being another possible/probable source. An extensive discussion was had with the patient as well as family members regarding her goals of care. The patient opted for no escalation of care and terminal extubation knowing that this could hasten her . Patient was terminally extubated on January 28, 2018. The patient remained comfortable with her family at the bedside and peacefully at 1126. Copy To Sixto Bella M.D.; Óscar Decker M.D.
--- NOTE | 2018-01-28 12:37 | Surgery Progress Note ---
Surgery Progress Note Date of Service Jan 28, 2018. Patient seen earlier this morning with Dr. Lara Subjective Post OP Day: HD # 1 Patient discussed with ICU Attending Dr. Molina prior to entering room: She currently is still on both Levophed and Vasopressin for pressor support however trying to wean off at least one Multiple family members in the room with patient, palliative care consulted for further discussion of further measures and patient's wishes Not going for dialysis today Patient alert this morning, able to nod to questions: Denies of any abdominal pain. No bowel movement. Objective Vital Signs: Date Time Temp Pulse Resp B/P (MAP) Pulse Ox O2 Delivery O2 Flow Rate FiO2 01/28/18 09:00 72 26 93/41 (58) 97 Mechanical Ventilator 60 01/28/18 08:00 Mechanical Ventilator 60 01/28/18 08:00 60 01/28/18 08:00 36.4 73 24 104/28 (53) 95 Mechanical Ventilator 60 01/28/18 07:22 60 01/28/18 07:00 75 23 102/46 (64) 97 Mechanical Ventilator 60 01/28/18 06:00 76 24 109/49 (69) 96 Mechanical Ventilator 60 01/28/18 05:38 65 01/28/18 04:00 36.4 74 24 111/46 (67) 95 Mechanical Ventilator 60 01/28/18 04:00 95 Mechanical Ventilator 60 01/28/18 04:00 60 01/28/18 03:07 60 01/28/18 02:15 65 01/28/18 02:00 76 22 117/50 (72) 96 Mechanical Ventilator 65 01/28/18 00:01 36.5 73 20 102/45 (64) 95 Mechanical Ventilator 65 01/27/18 23:59 65 01/27/18 23:59 95 Mechanical Ventilator 65 01/27/18 22:55 65 01/27/18 22:00 83 24 135/42 (73) 93 Mechanical Ventilator 65 01/27/18 20:00 36.5 81 22 118/52 (74) 93 Mechanical Ventilator 65 01/27/18 20:00 65 01/27/18 20:00 93 Mechanical Ventilator 65 01/27/18 19:36 65 01/27/18 18:00 86 22 147/39 (75) 91 Mechanical Ventilator 65 01/27/18 17:09 65 01/27/18 17:00 85 25 138/40 (72) 92 Mechanical Ventilator 65 01/27/18 16:00 65 01/27/18 16:00 36.9 85 24 121/41 (67) 92 Mechanical Ventilator 65 01/27/18 16:00 Mechanical Ventilator 65 01/27/18 15:00 81 25 97/37 (57) 91 Mechanical Ventilator 65 01/27/18 14:12 65 01/27/18 14:00 93 23 118/39 (65) 94 Mechanical Ventilator 65 01/27/18 13:00 87 26 102/40 (60) 92 Mechanical Ventilator 65 Physical Exam: nasogastric drainage (orogastric tube with greenish drainage, about 100 cc in canister ) General Appearance: + thin, + pertinent finding (currently on MV, awake and alert but falling in and out of sleep on examination, multiple family members at bedside) Head: normocephalic, atraumatic Neck: trachea midline Respiratory/Chest: lungs clear, no respiratory distress, no accessory muscle use Cardiovascular: regular rate, rhythm, no murmur Abdomen: non tender, soft, no organomegaly, + distended, + pertinent finding ( midline incision with dawna present and intact, no erythema) Incision(s): clean, dry, intact, no erythema, no drainage, findings (dawna intact) Laboratory Results: Results Past 24 Hours Test 01/27/18 16:03 01/27/18 18:25 01/27/18 20:31 01/27/18 20:37 Range/Units Hemoglobin 9.9 12.0-16.0 g/dL Hematocrit 32.3 37-47 % Lactic Acid Level 4.5 0.4-2.0 mmol/L Bedside Glucose (other) 232 215 70-99 mg/dl Prothrombin Time 22.4 9.0-12.0 SECONDS Prothromb Time International Ratio 2.2 0.9-1.1 Activated Partial Thromboplast Time 47.6 21.0-31.0 SECONDS Partial Thromboplastin Ratio 1.8 Test 01/28/18 00:22 01/28/18 04:19 01/28/18 05:22 01/28/18 06:23 Range/Units Bedside Glucose (other) 198 184 70-99 mg/dl White Blood Count 12.68 4.8-10.8 K/uL Red Blood Count 2.72 4.2-5.4 M/uL Hemoglobin 8.4 12.0-16.0 g/dL Hematocrit 27.2 37-47 % Mean Corpuscular Volume 100.0 80-100 fL Mean Corpuscular Hemoglobin 30.9 25-34 pg Mean Corpuscular Hemoglobin Concent 30.9 32-36 g/dl Platelet Count 213 130-400 K/uL Mean Platelet Volume 8.8 7.4-10.4 fL Neutrophils (%) (Auto) 85.3 % Lymphocytes (%) (Auto) 7.7 % Monocytes (%) (Auto) 5.3 % Eosinophils (%) (Auto) 0.0 % Basophils (%) (Auto) 0.1 % Neutrophils # (Auto) 10.82 1.4-6.5 K/uL Lymphocytes # (Auto) 0.98 1.2-3.4 K/uL Monocytes # (Auto) 0.67 0.11-0.59 K/uL Eosinophils # (Auto) 0.00 0-0.5 K/uL Basophils # (Auto) 0.01 0-0.2 K/uL RDW Standard Deviation 67.6 36.4-46.3 fL RDW Coefficient of Variation 18.7 11.5-14.5 % Immature Granulocyte % (Auto) 1.6 % Immature Granulocyte # (Auto) 0.20 0.00-0.02 K/uL Nucleated RBC Absolute Count (auto) 0.14 0-0 K/uL Nucleated Red Blood Cells % 1.1 % Toxic Vacuolation 1+ Dohle Bodies 1+ Polychromasia 1+ Prothrombin Time 22.1 9.0-12.0 SECONDS Prothromb Time International Ratio 2.1 0.9-1.1 Activated Partial Thromboplast Time 51.7 21.0-31.0 SECONDS Partial Thromboplastin Ratio 2.0 Sodium Level 132 136-145 mmol/L Potassium Level 4.9 3.5-5.1 mmol/L Chloride Level 102 98-107 mmol/L Carbon Dioxide Level 20 21-32 mmol/L Anion Gap 10.0 3-11 mmol/L Blood Urea Nitrogen 31 7-18 mg/dl Creatinine 3.41 0.60-1.20 mg/dl Est Creatinine Clear Calc Drug Dose 12.5 ml/min Estimated GFR () 15.2 Estimated GFR (Non- 13.1 BUN/Creatinine Ratio 9.2 10-20 Random Glucose 186 70-99 mg/dl Lactic Acid Level 4.1 0.4-2.0 mmol/L Calcium Level 8.0 8.5-10.1 mg/dl Phosphorus Level 7.0 2.5-4.9 mg/dl Magnesium Level 2.3 1.8-2.4 mg/dl Total Bilirubin 0.4 0.2-1 mg/dl Direct Bilirubin 0.2 0-0.2 mg/dl Aspartate Amino Transf (AST/SGOT) 20 15-37 U/L Alanine Aminotransferase (ALT/SGPT) < 6 12-78 U/L Alkaline Phosphatase 122 45-117 U/L Total Protein 4.8 6.4-8.2 gm/dl Albumin 1.1 3.4-5.0 gm/dl Random Vancomycin Level 15.5 mcg/ml Blood Gas Sample Site Art Line Bedside Blood Gas pH (LAB) 7.12 7.35-7.45 Bedside Blood Gas pCO2 (LAB) 57 35-46 mmHg Bedside Blood Gas pO2 (LAB) 88 80-95 mmHg Bedside Blood Gas HCO3 (LAB) 19 19-24 meq/L Bedside Blood Gas Total CO2 20 24-31 mEq/l Bedside Blood Gas Base Excess (LAB) -11.0 -9-1.8 meq/L Bedside Blood Gas O2 Saturation 93.0 90-95 % Marcio Test NA Oxygen Delivery Device Ventilator Bedside Oxygen Rate (breaths/min) 18 Blood Gas Minute Ventilation 8.9 Bedside FiO2 60 % Blood Gas Tidal Volume 400 Blood Gas PEEP 8 Test 01/28/18 08:33 01/28/18 09:23 Range/Units Bedside Glucose (other) 158 70-99 mg/dl Venous Blood pH 7.11 7.36-7.41 Venous Blood Partial Pressure CO2 57 38.0-50.0 mmHg Venous Blood Partial Pressure O2 100 mmHg Venous Blood HCO3 18 mmol/L Venous Blood Oxygen Saturation 94.6 % Venous Blood Base Excess -11.1 mEq/L Microbiology Results 01/27/18 Blood Culture, Received Pending 01/27/18 Blood Culture, Received Pending Assessment & Plan 67 year-old female with ESRD on hemodialysis with history of ruptured appendicitis in August treated conservatively with IV antibiotics who developed SBO in December and multiple intra-abdominal abscess in which she was transferred to [facility] for further evaluation and management. Interventional radiology placed drain however she was taken to OR for ex lap, lysis of adhesions and abdominal washout. She was transferred to rehab facility post operatively for rehabilitation. Presented to emergency room with increasing shortness of breath, hypoxia, nausea and vomiting. * Aspiration event resulting in hypoxia --> arrest. Epi x1 w/ compressions w/ ROSC * CT scan showed evidence of majority of small bowel dilatation with distal small bowel decompressed. Questions of RLQ transition point however there was some contrast in the colon. Plan: Given patients status, the mortality of any surgical intervention is high. She is still on mechanical ventilator and requiring Vasopressin and Levophed for pressor support. Palliative care consulted to discuss with family further measures and patient's wishes Continue conservative measures for SBO/Ileus: Orogastric tube, pain management Continue current ICU management, would like to start nutrition if able to reduce to one pressor support will await palliative care consult and final decision/wishes of patient will follow Patient seen with Dr. Lara who agrees with above.
[2018-01-28] MEDS ORDERED: LEVOFLOXACIN 500MG / D5W IV SCH (21:00)
[2018-01-28] MEDS ORDERED: HEPARIN SOD 5000 UNIT/0.5 ML CARP SC SCH (21:00)
--- NOTE | 2018-02-08 10:30 | EDITING REQUIRED CODING QUERY ---
CODING QUERY To promote full compliance with coding requirements relating to patient care, provider participation is requested in all cases of construction sales manager uncertainty. Please assist us with the question(s) below: Coding Question(s): SEVERE SEPSIS WITH SEPTIC SHOCK WAS DOCUMENTED ALONG WITH SEPSIS AT THE BEGINNING OF THE RECORD, SEPSIS WAS CONTINUED THROUGHOUT THE RECORD SEVERE SEPSIS WITH SEPTIC SHOCK WAS NOT CAN YOU PLEASE VERIFY THE DIAGNOSIS OF SEVERE SEPSIS WITH SEPTIC SHOCK BELOW. Physician's Response(s): (X) SEVERE SEPSIS WITH SEPTIC SHOCK POA ( ) SEVERE SEPSIS WITH SEPTIC SHOCK RULED OUT ( ) OTHER (PLEASE SPECIFY): Blood cultures obtained in emergency department turn positive, bacteremia present on admission, severe sepsis with septic shock present on admission Thank you Marilia Wagner Principal Diagnosis: "_that condition established after study, to be chiefly responsible for occasioning the admission of the patient to the hospital for care." Co-Existing Principal Diagnosis: "_when two or more diagnoses equally meet the criteria for principal diagnosis as determined by the circumstances of admission, diagnostic work up, and/or therapy provided, and the Alphabetic Index, Tabular List, or another coding guideline does not provide sequencing direction, any one of the diagnoses may be sequenced first." "When the physician has documented what appears to be a current diagnosis in the body of the record, but has not included the diagnosis in the final diagnostic statement, the physician should be asked whether the diagnosis should be added." (Source [facility] 2 QTR90. p3-4)
== END 2018-01-28 14:30 | disposition expired | DRG 853 ==
LOC: EDBD 23:53 → C.EDC 23:54 → C.MSICU 01-27 02:38 → ENRESERV 01-27 02:45
PROVIDERS: ADMIT Internal Medicine; ATTEND Internal Medicine
PROC: 03HB33Z Insertion of Infusion Device into Right Radial Artery, Percutaneous Approach (ICD-10-PCS; principal; 2018-01-27)
PROC: 0B9J8ZX Drainage of Left Lower Lung Lobe, Via Natural or Artificial Opening Endoscopic, Diagnostic (ICD-10-PCS; 2018-01-27)
PROC: 05HM33Z Insertion of Infusion Device into Right Internal Jugular Vein, Percutaneous Approach (ICD-10-PCS; 2018-01-27)
PROC: 5A1945Z Respiratory Ventilation, 24-96 Consecutive Hours (ICD-10-PCS; 2018-01-27)
DX: A41.9 Sepsis, unspecified organism (principal); R65.21 Severe sepsis with septic shock; J69.0 Pneumonitis due to inhalation of food and vomit; J96.01 Acute respiratory failure with hypoxia; N18.6 End stage renal disease; E87.2 Acidosis; K91.89 Other postprocedural complications and disorders of digestive system; D68.0 Von Willebrand disease; I12.0 Hypertensive chronic kidney disease with stage 5 chronic kidney disease or end stage renal disease; K91.30 Postprocedural intestinal obstruction, unspecified as to partial versus complete; Z51.5 Encounter for palliative care; R09.2 Respiratory arrest; L89.159 Pressure ulcer of sacral region, unspecified stage; E10.22 Type 1 diabetes mellitus with diabetic chronic kidney disease; I46.9 Cardiac arrest, cause unspecified; D64.9 Anemia, unspecified; Z79.4 Long term (current) use of insulin; Z88.0 Allergy status to penicillin; Z88.2 Allergy status to sulfonamides; Z88.6 Allergy status to analgesic agent; Z88.1 Allergy status to other antibiotic agents; Z99.2 Dependence on renal dialysis